=== PATIENT | male | born 1950 | race Caucasian/White ===

== ENCOUNTER 2024-12-20 10:12 | Inpatient (IN) | payer MEDICARE, SELFPAY ==
[2024-12-20] VITALS (7 sets, daily range): BP systolic 112–164; BP diastolic 71–90; PULSE 57–76; RESP 12–18; TEMP 36.2–36.5; O2SAT 96–99; BMI 23.0; BMI 23.2
--- NOTE | ~2024-12-20 | CT_ITS ---
EXAMINATION: CT ABDOMEN PELVIS WITH IV CONTRAST HISTORY: abdominal pain, probable bowel obstruction COMPARISON: Correlation is made with plain films of the abdomen performed earlier in the day. TECHNIQUE: CT scan of the abdomen and pelvis was performed following administration of 85 mL Omnipaque 350 using standard departmental protocol. Coronal and sagittal reformatted images were generated and reviewed. The patient received oral contrast material. This CT exam was performed with one or more of the following dose reduction techniques: automated exposure control, adjustment of the mA and/or kV according to patient size, use of iterative reconstruction technique. DLP: 727 mGy-cm FINDINGS: LOWER CHEST: The visualized lung bases are clear. There is no pleural effusion. CARDIOVASCULATURE: The heart is normal in size. There is no pericardial effusion. LIVER: There is atrophy of the left lobe of the liver. No liver mass is identified. The hepatic and portal veins are patent. GALLBLADDER / BILE DUCTS: The gallbladder is unremarkable. There is no intra or extrahepatic biliary ductal dilatation. SPLEEN: The spleen is normal in size. No focal splenic lesion is identified. PANCREAS: The pancreas is unremarkable in appearance. ADRENAL GLANDS: Within normal limits. KIDNEYS/RETROPERITONEUM: No renal calculi are identified. There is no hydronephrosis. No renal masses are identified. LYMPH NODES: No abdominal or pelvic lymphadenopathy. VASCULATURE: The abdominal aorta demonstrates atherosclerotic calcification, but is normal in caliber. MESENTERY/PERITONEUM: There is a small amount of free fluid in the pelvis. No masses. There is no free intraperitoneal gas. STOMACH: The stomach is unremarkable. SMALL BOWEL: The small bowel is normal in caliber. COLON: There is marked dilatation of the colon with gas and feces (up to 9.9 cm in diameter) to the level of the sigmoid where there is twisting of the mesentery compatible with volvulus. The colon distal to this level is collapsed. There is no pneumatosis. APPENDIX: Normal. URINARY BLADDER/PELVIC ORGANS: The urinary bladder is obscured by streak artifact from bilateral total hip arthroplasties. The prostate is not well visualized. BONES / SOFT TISSUES: There is a rim-enhancing fluid collection lateral and superior to the right hip measuring 5.1 x 6.3 x 4.7 cm which may represent a seroma or abscess. There is mild infiltration of the overlying fat. CT/CT abdomen pelvis w IV con IMPRESSION: 1. Sigmoid volvulus with dilatation of the more proximal colon measuring up to 9.9 cm in diameter. 2. 5.1 x 6.3 x 4.7 cm rim-enhancing fluid collection superior and lateral to the right hip which may represent a seroma or abscess. 3. Findings were discussed with Marj Nails in the emergency room on 12/20/2024 at 3:47 PM. Electronically signed by: Eliseo Jones MD 12/20/2024 03:54 PM EDT
--- NOTE | ~2024-12-20 | XR_ITS ---
EXAMINATION: XR ABDOMEN SUPINE AND ERECT WITH CHEST (ABD ACUTE SERIES) HISTORY: Sigmoid volvulus, s/p decompression 12/20/24 COMPARISON: There are comparison is made with the prior examination dated 12/20/2024. FINDINGS: Supine and decubitus views of the abdomen were obtained. The bowel gas pattern is unremarkable, without evidence of mechanical obstruction. There is no free intraperitoneal gas. The previously seen colonic distention has resolved. There is a moderate amount of stool in the proximal colon. No abnormal calcifications are identified. There are no abnormal soft tissue masses. There is degenerative disc disease of the spine. The patient is status post bilateral total hip arthroplasty. XR/XR acute abdomen series IMPRESSION: Resolution of the previously seen colonic distention. Moderate amount of stool in the proximal colon. Electronically signed by: Eliseo Jones MD 12/21/2024 11:11 AM EDT
--- NOTE | ~2024-12-20 | XR_ITS ---
EXAMINATION: XR ABDOMEN KUB CLINICAL INDICATION: AP COMPARISON: None available. TECHNIQUE: AP view of the abdomen. FINDINGS: There is marked gaseous distention of the entire colon throughout the abdomen. The descending colon appears somewhat a haustral. There is no definite free intraperitoneal air within limitations of supine technique. No definite small bowel dilatation is evident. No rectal dilatation. There is stool seen in the right lower quadrant region. No abnormal soft tissue calcifications besides vascular. Bilateral hip arthroplasties in place without radiographic complication. There is abundant heterotopic bone formation left greater than right. There are no bone lesions evident. Degenerative changes of the spine and SI joints. Limited imaging of the lung bases demonstrates no abnormalities. XR/XR KUB IMPRESSION: 1. Marked gaseous dilatation of the large bowel. Stool seen in the right lower quadrant. Differential includes a large bowel obstruction, ileus, or chronic atonic colonic syndrome such as Ramon syndrome. 2. No indirect evidence of free air although this is a supine radiograph. 3. Bilateral hip replacements with abundant left greater than right heterotopic bone formation. Electronically signed by: Marcelo Dawson MD 12/20/2024 11:36 AM EDT
--- NOTE | 2024-12-20 10:39 | ED_ITS ---
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 Patient states that over the last 10 days he has had increasing difficulty with bowel movements. Patient states that he was having some pass but 3 days ago that has stopped and he is no longer passing gas. Patient states that he is nauseous but has not vomited. Patient denies any dizziness, lightheadedness, vomiting, fever, chills, blurry vision, double vision, loss of vision, chest pain, difficulty breathing, shortness of breath, back pain, night sweats, pain with urination, increased urinary frequency, increased urinary urgency, blood in his urine or stool, syncope or a near syncopal episode, recent trauma or falls, bowel incontinence, bladder incontinence, or any other complaints at this time. Onset (ago): day(s) (10 total, 3 with no bowel movement) Relieving factors: none Exacerbating factors: none Associated symptoms: nausea/vomiting Treatments prior to arrival: none Related Data Home Medications ?Medication ?Instructions ?Recorded ?Confirmed amlodipine 10 mg tablet 10 mg PO DAILY 12/20/24 12/20/24 atorvastatin 40 mg tablet 40 mg PO DAILY 12/20/24 12/20/24 carvedilol 6.25 mg tablet 6.25 mg PO BID 12/20/24 12/20/24 cefadroxil 500 mg capsule 500 mg PO BID 12/20/24 12/20/24 losartan 100 mg tablet 100 mg PO DAILY 12/20/24 12/20/24 methocarbamol 750 mg tablet 750 mg PO Q6-8H PRN muscle spasm 12/20/24 12/20/24 oxycodone 5 mg tablet 5 mg PO Q6-8H PRN severe pain 12/20/24 12/20/24 tramadol 50 mg tablet 50 mg PO Q6-8H PRN severe pain 12/20/24 12/20/24 Allergies Allergy/AdvReac Type Severity Reaction Status Date / Time No Known Allergies Allergy Verified 12/20/24 17:03 Review of Systems 2 Constitutional: Constitutional: Reports no additional constitutional complaints, Denies chills, Denies fever(s) and Denies night sweats Eyes: Eyes: Reports no additional eye complaints, Denies blurry vision, Denies change in vision, Denies diplopia, Denies eye discharge, Denies loss of vision and Denies eye pain ENT: Denies dizziness Cardiovascular: Cardiovascular: Reports no additional cardiovascular complaints, Denies chest pain, Denies lightheadedness, Denies Loss of Consciousness and Denies dyspnea Respiratory: Respiratory: Reports no additional respiratory complaints and Denies dyspnea Gastrointestinal: Gastrointestinal: Reports no additional gastrointestinal complaints, Reports abdominal pain, Denies melena, Denies hematochezia, Reports change in bowel habits, Denies change in stool character, Reports constipation, Reports nausea and Denies vomiting Genitourinary: Genitourinary: Reports no additional male genitourinary complaints, Denies hematuria, Denies oliguria, Denies difficulty urinating, Denies dysuria, Denies urinary frequency, Denies urinary hesitancy, Denies urinary incontinence and Denies urinary urgency Musculoskeletal: Musculoskeletal: Reports no additional musculoskeletal complaints, Denies numbness and Denies tingling Neurologic: Denies dizziness, Denies loss of vision, Denies numbness and Denies tingling Psychiatric: Psychiatric: Reports no additional psychiatric complaints Endocrine: Endocrine: Reports no additional endocrine complaints Hematologic/Lymphatic: Hematologic/Lymphatic: Reports no additional hematologic/lymphatic complaints Allergic/Immunologic: Allergic/Immunologic: Reports no additional allergic/immunologic complaints [facility] Past Medical History Attestation statement: The following information was validated with the patient. (all information validated with the patient's partner) Source: old records reviewed, nursing notes reviewed and other (patient's partner provided additional history and confirmed the history provided by the patient. ) Medical History (Updated 12/20/24 @ 17:17 by TRISTON Darden) Chronic anemia Basal cell carcinoma Squamous cell carcinoma of face CLL (chronic lymphocytic leukemia) HLD (hyperlipidemia) HTN (hypertension) Surgical History (Updated 12/20/24 @ 17:08 by Lizbet Dennis RN) H/O neck surgery H/O heart artery stent History of total right hip replacement History of total left hip replacement History of facial surgery Social History Social History Advance Directives: No Advance Directives Information Provided: Yes Physical Exam ED Vital Signs: Vital Signs - 24 hr 12/20/24 10:40 12/20/24 14:50 Temperature 97.1 F 97.7 F Pulse Rate 76 60 Respiratory Rate 18 12 Blood Pressure 150/82 H 150/80 H Pulse Oximetry 98 97 Oxygen Delivery Method Room Air Room Air BMI result Body Mass Index 23.0 Const General: cooperative, no acute distress, alert and awake Nutritional Appearance: well nourished Orientation/consciousness: patient oriented x3 Limitations: no limitations HENMT Head: Yes normal to inspection and Yes atraumatic Ears: hearing grossly normal bilaterally and external ears normal General nose exam: Normal external nose present, no nasal discharge noted and no epistaxis Face and sinus: No abrasion, No laceration and Yes other (chronic right sided facial droop secondary to squamous cell removal.) Face images: 2 1. large area of grafted skin secondary to squamous cell removal Mouth: Normal oral and palatal mucosa present, no drooling and no muffled voice Eyes General: appearance normal, both eyes and all related structures Periorbital: periorbital findings normal Eyelids: Yes eyelids normal Conjunctivae: conjunctivae normal Pupils: Equal, round and reactive pupils present EOM: EOMs intact bilaterally Neck Neck: Yes normal visual inspection, Yes full ROM and Yes no lymphadenopathy Chest Chest palpation & inspection: normal inspection of the chest Resp Effort & Inspection: normal respiratory effort and able to speak in complete sentences GI Inspection: Yes normal to inspection Palpation (GI): Firmness to palpation present (GI), Tenderness to palpation present (GI) (diffuse) and no guarding Neuro General: patient oriented x3, moves all extremities and CN's II-XI intact bilaterally Cranial nerves: Yes Equal, round and reactive pupils present Cognition (Neuro): normal cognition Extrem General: Yes normal to inspection, Yes full ROM and Yes capillary refill normal Psych Appearance: grossly normal Mental Status: mental status grossly normal Affect: normal affect Attitude: cooperative Thought process: Normal thought process present Thought content: Normal thought content present Insight: Good insight present (Psych) Course Course Course Narrative: This is an RME: Additional HPI, ROS, PE not included below will be deferred to primary provider. RME assessment and note performed by: Prerna Humeml PA-C This is a 1-lahc-pf[age]-male, wtih hx of HTN, HLD, who presents to the ER with complaints of constipation. Reports that he has not had a bowel movement in 10 days. Reporting bloating and no longer passing gas. Reporting some nausea, no vomiting. No fevers. with a hx of hip revision which became infected, then had another hip surgery in September. Had facial cancer in 2022. Plan: Labs, UA, XR KUB 11:55AM - received message from lab, Regarding blood smear on Fransisco Garzon): lymphocytosis with variant lymphs. This could be CLL. If he does not have a known history of CLL, please send a fresh peripheral blood sample for flow cytometry and consider a heme consult. Medications Administered Discontinued Medications Generic Name Dose Route Start Last Admin Trade Name Freq PRN Reason Stop Dose Admin Diatrizoate Meglum/Diatrizoate Sod 30 ml 12/20/24 15:32 12/20/24 15:32 Diatrizoate Meglumine, Sodium 30 Ml Solution PO 12/20/24 15:33 30 ml ONCE ONE Administration Iohexol 100 ml 12/20/24 15:31 12/20/24 15:31 Iohexol 350 Mg/Ml 100 Ml Infus..Btl IV 12/20/24 15:32 85 ml ONCE ONE Administration Ondansetron HCl 4 mg 12/20/24 13:39 12/20/24 15:06 Ondansetron Hcl 4 Mg/2 Ml Vial IVPUSH 12/20/24 13:40 4 mg ONCE ONE Administration Medical Decision Making Medical Decision Making [facility] Narrative: Patient is a 74 year old assigned male at with a history of CLL, 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 Patient's physical exam was as noted in the physical exam portion of this note. Patient's blood work is consistent with an individual who has CLL. Patient's KUB x-ray showed marked gaseous dilatation of the large bowel concerning for large bowel obstruction vs. ileus. I obtained a CT of the abdomen/pelvis that showed evidence of a sigmoid volvulus as well as a fluid collection of the right hip consistent with a seroma. Patient states that he had his last right hip surgery at [facility] in [place] in September of 2024 and has not had any pain / issues there. I spoke with the general surgeon, Dr. Banerjee who recommended GI consult. I spoke with Dr. Tineo who recommended medical admission and stated he would take him to the OR for a stat sigmoid scope. I explained my physical exam findings as well as all test results to the patient. I answered all questions asked by the patient. Patient verbalized agreement and understanding with this treatment plan and admission and procedure. Differential Diagnosis Differential Diagnoses: The differential diagnosis associated with the presentation includes Bowel obstruction Volvulus Seroma Admission/Observation Consideration of admission/observation: Escalation of care including admission/observation considered Patient admitted as noted in the MDM Rationale portion of this note. Consult Healthcare Provider Management of the patient was discussed with: Hospitalist (agreed to admission as noted in the MDM Rationale portion of this note. ) and Mixer Lever Operator (spoke with the general surgery and GI teams as noted in the MDM Rationale portion of this note. ) Lab Data [facility] Lab Attestation statement: I reviewed the patient's lab results. My interpretation of these results are in the MDM Rationale portion of this note. 12/20/24 11:00 12/20/24 11:00 Labs: Lab Results 12/20/24 Range/Units 11:00 WBC 10.9 H (4.8-10.8) X10*3/uL RBC 3.47 L (4.60-5.80) X10*6/uL Hgb 11.6 L (14.0-18.0) g/dl Hct 34.0 L (42.0-52.0) % MCV 98.0 (80.0-98.0) fL MCH 33.4 H (27.0-33.0) pg MCHC 34.1 (31.0-36.0) g/dl RDW 17.4 H (11.0-16.0) % Plt Count 122 L (160-400) X10*3/uL MPV 8.3 L (9.4-12.4) fL Immature Gran % (Auto) Cancelled Neut % (Auto) Cancelled Lymph % (Auto) Cancelled Sherman % (Auto) Cancelled Eos % (Auto) Cancelled Baso % (Auto) Cancelled Lymph # (Auto) Cancelled Sherman # (Auto) Cancelled Eos # (Auto) Cancelled Baso # (Auto) Cancelled Abs Immat Gran (auto) Cancelled Absolute Neuts (auto) Cancelled Absolute Nucleated RBC 0.000 (0.0-0.012) X10*3/uL Nucleated RBC % (auto) 0.0 (0.0-0.2) /100WBC Neutrophils % (Manual) 20 L (45-73) % Band Neutrophils % 2 L (3-5) % Lymphocytes % (Manual) 74 H (20-40) % Atypical Lymphs % (Man) 3 (0-6) % Eosinophils % (Manual) 1 (0-4) % Abs Neuts (Manual) 2.4 (2.0-8.3) X10*3/uL Lymphocytes # (Manual) 8.1 H (1.2-4.9) X10*3/uL Atyp Lymphs # (Manual) 0.3 x10*3/uL Eosinophils # (Manual) 0.1 (0.0-0.4) X10*3/uL Smudge Cells PRESENT Platelet Estimate DECREASED (NORMAL) Plt Morphology Comment NORMAL RBC Morphology NOTED Tear Drop Cells 1+ (0-2) /OIF Smear Path Review SEE NOTE Sodium 132 L (135-145) mmol/L Potassium 3.7 (3.3-5.1) mmol/L Chloride 99 (96-108) mmol/L Carbon Dioxide 27 (22-29) mmol/L Anion Gap 10 L (12-20) BUN 15 (9-16) mg/dL Creatinine 0.75 (0.5-1.4) mg/dL Estim Creat Clear Calc 99.3 Estimated GFR > 60 Random Glucose 108 (60-115) mg/dL Calcium 9.5 (8.4-10.2) mg/dL Magnesium 1.9 (1.6-2.6) mg/dL Total Bilirubin 0.6 (0.0-1.0) mg/dL Direct Bilirubin 0.3 (0.0-0.5) mg/dL AST 49 H (5-37) U/L ALT 30 (0-40) U/L Alkaline Phosphatase 159 H (39-117) U/L Total Protein 7.1 (6.5-8.0) g/dL Albumin 4.2 (3.5-5.0) g/dL Lipase 49 (8-78) U/L Influenza Type A (PCR) NEGATIVE (Negative) Influenza Type B (PCR) NEGATIVE (Negative) RSV RNA Qual (PCR) NEGATIVE (Negative) SARS-CoV-2 RNA (RT-PCR) NEGATIVE (Negative) Independent Interpretation I performed an independent interpretation of an: Plain X-Ray and CT Scan Interpretation: My interpretation is in agreement with the radiologist's impression of these imaging studies. L EXAMINATION: XR ABDOMEN KUB CLINICAL INDICATION: AP COMPARISON: None available. TECHNIQUE: AP view of the abdomen. FINDINGS: There is marked gaseous distention of the entire colon throughout the abdomen. The descending colon appears somewhat a haustral. There is no definite free intraperitoneal air within limitations of supine technique. No definite small bowel dilatation is evident. No rectal dilatation. There is stool seen in the right lower quadrant region. No abnormal soft tissue calcifications besides vascular. Bilateral hip arthroplasties in place without radiographic complication. There is abundant heterotopic bone formation left greater than right. There are no bone lesions evident. Degenerative changes of the spine and SI joints. Limited imaging of the lung bases demonstrates no abnormalities. XR/XR KUB IMPRESSION: 1. Marked gaseous dilatation of the large bowel. Stool seen in the right lower quadrant. Differential includes a large bowel obstruction, ileus, or chronic atonic colonic syndrome such as Ramon syndrome. 2. No indirect evidence of free air although this is a supine radiograph. 3. Bilateral hip replacements with abundant left greater than right heterotopic bone formation. Electronically signed by: Marcelo Dawson MD 12/20/2024 11:36 AM EDT Dictated By: Marcelo Dawson MD Signed By: Electronically signed by Marcelo Dawson MD 12/20/24 1136 Report Number: [id number]: Total DLP = 727.00 mGy-cm EXAMINATION: CT ABDOMEN PELVIS WITH IV CONTRAST HISTORY: abdominal pain, probable bowel obstruction COMPARISON: Correlation is made with plain films of the abdomen performed earlier in the day. TECHNIQUE: CT scan of the abdomen and pelvis was performed following administration of 85 mL Omnipaque 350 using standard departmental protocol. Coronal and sagittal reformatted images were generated and reviewed. The patient received oral contrast material. This CT exam was performed with one or more of the following dose reduction techniques: automated exposure control, adjustment of the mA and/or kV according to patient size, use of iterative reconstruction technique. DLP: 727 mGy-cm FINDINGS: LOWER CHEST: The visualized lung bases are clear. There is no pleural effusion. CARDIOVASCULATURE: The heart is normal in size. There is no pericardial effusion. LIVER: There is atrophy of the left lobe of the liver. No liver mass is identified. The hepatic and portal veins are patent. GALLBLADDER / BILE DUCTS: The gallbladder is unremarkable. There is no intra or extrahepatic biliary ductal dilatation. SPLEEN: The spleen is normal in size. No focal splenic lesion is identified. PANCREAS: The pancreas is unremarkable in appearance. ADRENAL GLANDS: Within normal limits. KIDNEYS/RETROPERITONEUM: No renal calculi are identified. There is no hydronephrosis. No renal masses are identified. LYMPH NODES: No abdominal or pelvic lymphadenopathy. VASCULATURE: The abdominal aorta demonstrates atherosclerotic calcification, but is normal in caliber. MESENTERY/PERITONEUM: There is a small amount of free fluid in the pelvis. No masses. There is no free intraperitoneal gas. STOMACH: The stomach is unremarkable. SMALL BOWEL: The small bowel is normal in caliber. COLON: There is marked dilatation of the colon with gas and feces (up to 9.9 cm in diameter) to the level of the sigmoid where there is twisting of the mesentery compatible with volvulus. The colon distal to this level is collapsed. There is no pneumatosis. APPENDIX: Normal. URINARY BLADDER/PELVIC ORGANS: The urinary bladder is obscured by streak artifact from bilateral total hip arthroplasties. The prostate is not well visualized. BONES / SOFT TISSUES: There is a rim-enhancing fluid collection lateral and superior to the right hip measuring 5.1 x 6.3 x 4.7 cm which may represent a seroma or abscess. There is mild infiltration of the overlying fat. CT/CT abdomen pelvis w IV con IMPRESSION: 1. Sigmoid volvulus with dilatation of the more proximal colon measuring up to 9.9 cm in diameter. 2. 5.1 x 6.3 x 4.7 cm rim-enhancing fluid collection superior and lateral to the right hip which may represent a seroma or abscess. 3. Findings were discussed with Marj Nails in the emergency room on 12/20/2024 at 3:47 PM. Electronically signed by: Eliseo Jones MD 12/20/2024 03:54 PM EDT RP Dictated By: Eliseo Jones MD Signed By: Electronically signed by Eliseo Jones MD 12/20/24 1554 Radiology Impression Discussion of test interpretation with radiology: I have reviewed the radiologist's reading. Independent Historian Clinical information obtained from an independent historian. History obtained from or confirmed by: Other (patient's partner provided additional history and confirmed the history provided by the patient. ) Critical Care Time Critical Care Time Critical Care Time: Yes Total Critical Care Time: 51 Attestation: I spent 51 minutes of Critical Care Time with this patient. This does not include time spent on separately reported billable procedures. Discharge Plan Discharge Clinical Impression: Sigmoid volvulus Patient Disposition: Admitted As Inpatient Prescriptions: No Action atorvastatin 40 mg tablet 40 mg PO DAILY carvedilol 6.25 mg tablet 6.25 mg PO BID tramadol 50 mg tablet 50 mg PO Q6-8H PRN (Reason: severe pain) cefadroxil 500 mg capsule 500 mg PO BID methocarbamol 750 mg tablet 750 mg PO Q6-8H PRN (Reason: muscle spasm) amlodipine 10 mg tablet 10 mg PO DAILY losartan 100 mg tablet 100 mg PO DAILY oxycodone 5 mg tablet 5 mg PO Q6-8H PRN (Reason: severe pain) Print Language: Citizen [place]
[2024-12-20 11:08] LABS: Hemoglobin 11.6 g/dl (14.0-18.0); Mean Corpuscular HGB Conc 34.1 g/dl (31.0-36.0); Mean Corpuscular Hemoglobin 33.4 pg (27.0-33.0); Mean Platelet Volume 8.3 fL (9.4-12.4); Platelet Count 122 X10*3/uL (160-400); Red Blood Count 3.47 X10*6/uL (4.60-5.80); Red Cell Distribution Width 17.4 % (11.0-16.0)
[2024-12-20 11:11] LABS: White Blood Count 10.9 X10*3/uL (4.8-10.8)
[2024-12-20 11:26] LABS: Alanine Aminotransferase 30 U/L (0-40); Albumin Level 4.2 g/dL (3.5-5.0); Alkaline Phosphatase 159 U/L (39-117); Anion Gap 10 (12-20); Aspartate Amino Transferase 49 U/L (5-37); Bilirubin Direct 0.3 mg/dL (0.0-0.5); Bilirubin Total 0.6 mg/dL (0.0-1.0); Blood Urea Nitrogen 15 mg/dL (9-16); Calcium 9.5 mg/dL (8.4-10.2); Carbon Dioxide 27 mmol/L (22-29); Chloride 99 mmol/L (96-108); Creatinine Clr Calc Pharmacy 99.3; Estimated Glomerular Filt Rate > 60; Glucose Random 108 mg/dL (60-115); Lipase 49 U/L (8-78); Magnesium 1.9 mg/dL (1.6-2.6); Potassium 3.7 mmol/L (3.3-5.1); Sodium 132 mmol/L (135-145); Total Protein 7.1 g/dL (6.5-8.0)
[2024-12-20 11:38] LABS: Atypical Lymph Absolute Manual 0.3 x10*3/uL; Atypical Lymphs Percent Manual 3 % (0-6); Band Neutrophils Percent 2 % (3-5); Eosinophils Absolute Manual 0.1 X10*3/uL (0.0-0.4); Eosinophils Percent Manual 1 % (0-4); Lymphocytes Absolute Manual 8.1 X10*3/uL (1.2-4.9); Lymphocytes Percent Manual 74 % (20-40); Neutrophils Absolute Manual 2.4 X10*3/uL (2.0-8.3); Neutrophils Percent Manual 20 % (45-73)
[2024-12-20 11:40] LABS: Platelet Estimate DECREASED (NORMAL); Platelet Morphology Comment NORMAL; RBC Morphology NOTED; Smudge Cells PRESENT; Tear Drop Cells 1+ (0-2) /OIF
[2024-12-20 11:49] LABS: Influenza A PCR NEGATIVE (Negative); Influenza B PCR NEGATIVE (Negative); Resp Syncy Virus RNA Qual PCR NEGATIVE (Negative); SARS COV2 PCR INHOUSE NEGATIVE (Negative)
[2024-12-20] MEDS: ondansetron HCL 4 MG/2 ML VIAL IVPUSH (15:06)
[2024-12-20] MEDS: iohexoL 350 MG/ML 100 ML INFUS..BTL IV (15:31)
[2024-12-20] MEDS: Diatrizoate Meglumine, Sodium 30 ML SOLUTION PO (15:32)
--- OUTSIDE RECORDS SUMMARY | 2024-12-20 16:07 | XMS_ITS | Encounter Summary ---
Author Organization [facility] Address [address] [place] [phone] Care Team Providers Care Financial Accountant Name Role Phone Indu Acosta MD Primary Care Provider Giovanna Thapa MD Unavailable Suzanna Mcgill DO Primary Care Provider [phone] Reason for Visit * Reason Comments Medication Refill Encounter Details Date Type Department Care Team (Late st Contact Info) Description 03/01/[address] [facility] Cardiac Laboratory [address] [phone] Olivia Zavaleta PA [address] [place] [phone] Medication Refill Social History Tobacco Use Types Packs/Day Years Used Date Smoking Tobacco: Never Smokeless Tobacco: Never Alcohol Use Standard Drinks/Week Comments Yes 0 (1 standard drink = 0.6 oz pur e alcohol) Occasional Sex and Gender Information Value Date Recorded Sex Assigned at Male 09/27/2022 7:35 AM EST Gender Identity Male 09/27/2022 7:35 AM EST Sexual Orientation Heterosexual (straight) 09/27 7:35 AM EST documented as of this encounter Plan of Treatment Upcoming Encounters Date Type Department Care Team (Late st Contact Info) Description 02/24/2025 10:00 AM EDT Office Visit [facility] [place] [address] [place] [phone] Giovanna Thapa MD [address] [place] [phone] documented as of this encounter Visit Diagnoses Diagnosis Hypertension, unspecified type documented in this encounter Care Teams Financial Accountant Relationship Specialty Start Date End Date Indu Acosta MD [address] [place] [address] PCP - General 08/29/21 03/26/23 Suzanna Mcgill DO [address] [place] [address] PCP - General Family Medicine 03/27/23 Giovanna Thapa MD [address] [place] [phone] Primary Meeting Planner Cardiovascular Disease 08/29/21 documented as of this encounter
--- OUTSIDE RECORDS SUMMARY | 2024-12-20 16:07 | XMS_ITS | Encounter Summary ---
Author Organization [facility] Address [address] [place] [address] Care Team Providers Care Gear Lapping Machine Operator Name Role Phone Aminata Moreno MD Primary Care Provider Encounter Details Date Type Department Care Team (Late st Contact Info) Description 07/10/2024 Lab Requisition [facility] - Main Lab [address] [place] [address] Ally Ortega MD [address] [place] [phone] Streptococcal infection, unspecified site Social History Tobacco Use Types Packs/Day Years Used Date Smoking Tobacco: Never Smokeless Tobacco: Never Alcohol Use Standard Drinks/Week Comments Not Currently 0 (1 standard drink = 0.6 oz pur e alcohol) Sex and Gender Information Value Date Recorded Sex Assigned at Male 08/27/2024 9:31 AM EST Legal Sex Male 12:32 PM EST Gender Identity Male 09/14/2024 5:10 AM EST Sexual Orientation Straight 10/20/2024 9: 19 AM EST documented as of this encounter Plan of Treatment Upcoming Encounters Date Type Department Care Team (Late st Contact Info) Description 01/10/2025 9:00 AM EDT Office Visit [facility] Hematology Oncology [address] [place] [address] Lamar Cotton MD [address] [place] [address] 03/16/2025 11:00 AM EDT Telemedicine Infectious Disease - [facility] [address] [place] [address] Neelima Peoples MD [address] [place] [address] documented as of this encounter Visit Diagnoses Diagnosis Streptococcal infection, unspecified site documented in this encounter Additional Health Concerns Infection Onset Date Last Indicated Resolved Time Tuberculosis Rule-Out 09/06/2024 09/06/20242024 8:27 AM EST documented as of this encounter Care Teams Gear Lapping Machine Operator Relationship Specialty Start Date End Date Aminata Moreno MD [address] [place] [id number] PCP - General Internal Medicine 10/21/24 documented as of this encounter
--- OUTSIDE RECORDS SUMMARY | 2024-12-20 16:07 | XMS_ITS ---
Author Organization [facility] Address [address] [place] [address] Care Team Providers Care Director Of User Experience Name Role Phone Nano Harpreetvidhi Primary Care Provider [phone] Active Problems Problem Noted Date Diagnosed Date Head and neck cancer 09/03/2022 Infrarenal abdominal aortic aneurysm (AAA) witho ut rupture 08/27/2022 Overview (08/27/2022): PET/CT TUMOR IMAGING SKULL BASE TO MID-THIGH ? ? 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 Thapa in [place], [place] Stenting x 2 in [address] Thapa in [place] Hyperlipidemia 09/13/2015 Primary hypertension 09/13/2015 Current Treatment and Therapy Plans No current plan information found. Past Treatment and Therapy Plans No past plan information found. Lifetime Dose Tracking * Chemical Lifetime Dose Automatic Entry Manual Entr y TotalDLP 859 mGy 859 mGy 0 mGy [id number] 7.5 mSv 7.5 mSv 0 mSv CTDIvol Max 32.2 mGy 32.2 mGy 0 mGy CTDIvol Min 32.2 mGy 32.2 mGy 0 mGy
--- OUTSIDE RECORDS SUMMARY | 2024-12-20 16:07 | XMS_ITS ---
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 Anemia persists but is stable. Recurrent squamous cell carcinoma of skin 2022 Assessment & Plan (12/13/2024 3:38 PM EDT): Fby derm, rad Onc and Hem/onc. Head and neck cancer ([facility] V24, [facility] V28) 09/03/2022 Assessment & Plan (08/25/2024 12:48 PM EST): CT head and neck performed 08/18/2024: All negative for mass, metastatic disease, lymphadenopathy. Followed closely by radiation oncology. See note below. Infrarenal abdominal aortic aneurysm (AAA) without rupture ([facility] V24) 08/27/2022 Overview (08/17/2024): PET/CT TUMOR IMAGING SKULL BASE TO MID-THIGH ? 08/26/2022 Moderate calcified and sclerosis of the aortoiliac tree with fusiform infrarenal aneurysm measuring 3.1 cm Hyponatremia 11/12/2021 CLL (chronic lymphocytic gricel kemia) ([facility] V24, [facility] V28) 01/13/2019 Overview (05/21/2024): Dr Cotton Assessment & Plan (12/13/2024 3:38 PM EDT): Fby Assessment & Plan (08/25/2024 12:48 PM EST): Patient has stage 0 CLL. Last seen by hematology oncology on 08/12/2024 (see note below). H&H platelets stable. Squamous cell carcinoma in situ 05/13/2018 Pure hypercholesterolemia 12/05/2017 Essential hypertension 12/05/2017 Assessment & Plan (08/25/2024 12:48 PM EST): BP in office 127/73, currently managed with losartan, amlodipine, and carvedilol, and clinically appears stable. Continue current treatment and outpatient management. Coronary artery disease invo [place] coronary artery of [place] heart without angina pectoris 12/05/2017 Assessment & Plan (08/29/2024 7:38 PM EST): No cardiovascular symptoms reported. Patient compliant with statin and beta- mag. Followed by cardiology; Stable-no further workup required. Varicose veins of ankle 11/16/2015 Delayed ejaculation 11/16/2015 Overview (05/21/2024): Saw urology Enlarged testicle 11/16/2015 Overview (05/21/2024): Neg work up Right shoulder pain 11/16/2015 S/P bilateral hip replacements 11/16/2015 Hyperlipidemia 09/13/2015 Anemia Overview (08/24/2024): DX:Anemia;COMMENT:HX Assessment & Plan (12/13/2024 3:38 PM EDT): Getting weekly labs, most recent Hb at 10.3 Assessment & Plan (08/30/2024 7:59 AM EST): Patient had a GI bleed back in 2022 due to hemorrhoid: Required transfusion. Does have chronic constipation and continues with some troubles with hemorrhoid but no vijay blood loss. Anemia persists but is stable. Type and screen ordered for morning of surgery. Last type and screen showed negative for antibodies and patient has not had a transfusion since last surgery. Type + screen AM of surgery ordered. Current Oncology Plans OUTPATIENT TRANSFUSION (PRN)* Plan Start Date:10/20/2024 Plan Provider:Lamar Cotton MD Linked Problems CLL (chronic lymphocytic gricel kemia) ([facility] V24, [facility] V28) Treatment Medications No medications scheduled. Past Plans No past plan information found. Radiation Treatments * No radiation treatments are documented for this patient in [facility]. Treatments may have been administered in another system. Lifetime Dose Tracking * Chemical Lifetime Dose Automatic Entry Manual Entr y Fluoro Time 0.16 minutes 0.16 minutes 0 minutes Air Kerma 15.42 mGy 15.42 mGy 0 mGy
--- OUTSIDE RECORDS SUMMARY | 2024-12-20 16:07 | XMS_ITS | Encounter Summary ---
Author Organization [facility] Address [address] [place] [address] Care Team Providers Care Breaker Oiler Name Role Phone Suzanna Mcgill Primary Care Provider [phone] Encounter Details Date Type Department Care Team (Late st Contact Info) Description 09/25/2023 [employer] Alarishart Message [facility] [address] [place] [id number] Mychart, Generic Provider [address] [place], [place] [id number] [employer] referral Social History Tobacco Use Types Packs/Day Years Used Date Smoking Tobacco: Never Smokeless Tobacco: Never Alcohol Use Standard Drinks/Week Comments Not Currently 0 (1 standard drink = 0.6 oz pur e alcohol) Sex and Gender Information Value Date Recorded Sex Assigned at Male 08/19/2022 3:44 PM EST Legal Sex Male 9:59 AM EST Gender Identity Male 08/19/2022 3:44 PM EST Sexual Orientation Straight 08/19/2022 3: 44 PM EST documented as of this encounter Plan of Treatment Not on file documented as of this encounter Visit Diagnoses Not on filedocumented in this encounter Care Teams Breaker Oiler Relationship Specialty Start Date End Date Suzanna Mcgill [address] [place] [address] PCP - General 08/14/22 documented as of this encounter
--- OUTSIDE RECORDS SUMMARY | 2024-12-20 16:07 | XMS_ITS | Encounter Summary ---
Author Organization [facility] Address [address] [place] [address] Care Team Providers Care Laminating Machine Feeder Name Role Phone Suzanna Mcgill Primary Care Provider [phone] Encounter Details Date Type Department Care Team (Late st Contact Info) Description 08/26/2022 Lab Requisition [facility] [address] [place] [address] Ashu Mason MD [address] [place] [address] [phone] Social History Tobacco Use Types Packs/Day Years [...] on file documented as of this encounter Procedures * Due to [place] Hippflow law, this organization might not be sharing negative HIV tests. Procedure Name Priority Date/Time Associated Diagnosis Comments NON-GYNECOLOGIC CYTOLOGY 08/26/2022 8:00 AM EST documented in this encounter Results * Due to [place] Hippflow law, this organization might not be sharing negative HIV tests. * (ABNORMAL) Non-Gynecologic Cytology (08/26/2022 8:00 AM EST) Final Diagnosis Specimen 1: Cheek, Right; Incoming consult, FNA Positive for malignant cells. Squamous cell carcinoma, keratinizing. See note. Note: The case was labelled as Right cheek, FNA, NOS , part 1 and part 2. Both part 1 and part 2 show squamous cell carcinoma. [facility] MANUAL 08/27/2022 10:43 AM EST [employer] [email or web address] at 1043 EST Clinical History SCC Cheek [facility]UAL 08/27/2022 10:43 AM EST [facility] Gross Description Specimen 1: Received from [facility] are 6 glass slides labeled [id number] corresponding to a right cheek FNA obtained on 08/12/2022, according to the accompanying cytology report bearing the patient's name and date of . [facility] MANUAL 08/27/2022 10:43 AM EST [employer] [email or web address] Embedded Images [facility] MANUAL 08/27/2022 10:43 AM EST [employer] Resulting Agency Case was signed out at [facility], Department of Pathology, [facility] [id number] [facility] MANUAL 08/27/2022 10:43 AM EST [employer] [facility] [email or web address] Abnormal Yes(A) (none) [facility] MANUAL 08/27/2022 10:43 AM EST [employer] [facility] [email or web address] Report Header Non-Gynecologic Cytology Report ? Case: [id number] ? Authorizing Provider: ??Ashu Mason MD ? Collected: ? 08/26/2022 0800 ? Ordering Location: ? [facility] ? Received: ?08/26/2022 1546 ? [facility] ? Pathologist: ? Rigoberto Brito MD ? Specimen: ?Cheek, Right, Incoming consult, FNA ? 08/27/2022 10:43 AM EST [facility] [employer] [facility] Structure of right cheek / Unknown 08/26/2022 8:00 AM EST 08/26/2022 3:46 PM EST us Ashu Mason MD LAB PATHOLOGY/CYTOLOGY ORDER FACUNDO Final Result Performing Organization Address City/State/[facility] Co de Phone Number [facility] [address] [place] [address], documented in this encounter Visit Diagnoses Not on filedocumented in this encounter Care Teams Laminating Machine Feeder Relationship Specialty Start Date End Date Suzanna Mcgill [address] [place] [address] PCP - General 08/14/22 documented as of this encounter
--- OUTSIDE RECORDS SUMMARY | 2024-12-20 16:07 | XMS_ITS | Clinical Summary ---
Author Organization [facility] Address [address] [place] [address] Phone Care Team Providers Care Insurance Premium Auditor Name Role Phone Aminata Moreno MD Primary Care Provider Allergies Active Allergy Reactions Criticality Noted Date Comments Pollen Extracts Stuffy Nose Low 05/21/2019 Medications fexofenadine HCl (LILIANA ALLERGY ORAL) 1 (one) time each day. Active multivit-min/iro n/folic acid/K (ADULTS MULTIVITAMIN ORAL) 1 (one) time each day. Active acetaminophen (TYLENOL) 500 mg tablet Take 2 tablets (1,000 mg total) by mouth every 6 hours as needed. Active amLODIPine (NORVASC) 10 mg tablet Take 1 tablet (10 mg total) by mouth 1 (one) time each day in the evening. 4 Active atorvastatin (LIPITOR) 40 mg tablet Take 1 tablet (40 mg total) by mouth 1 (one) time each day. 0 Active carvediloL (COREG) 6.25 mg tablet Take 1 tablet (6.25 mg total) by mouth 2 (two) times a day with meals. 3 Active cyanocobalamin (VITAMIN B-12) 100 mcg tablet 1 (one) time each day. Active losartan (COZAAR) 100 mg tablet Take 1 tablet (100 mg total) by mouth 1 (one) time each day. 1 Active melatonin 1 mg tablet,chewable at bedtime. Ac tive bisacodyL (DULCOLAX) 5 mg EC tablet Take 1 tablet (5 mg total) by mouth 1 (one) time each day in the evening. Active docusate sodium (COLACE) 100 mg capsule Take 1 capsule (100 mg total) by mouth 1 (one) time each day in the evening. Active methocarbamoL (ROBAXIN) 750 mg tablet Take 1 tablet (750 mg total) by mouth every 6 (six) hours if needed for muscle spasms. 60 each 09/26/2024 11:45 AM EST 5 Active oxyCODONE (ROXICODONE) 5 mg immediate release tablet Take 1 tablet (5 mg total) by mouth every 4 (four) hours if needed (pain). Max Daily Amount: 30 mg 42 tablet 09/26/2024 11:45 AM EST 5 Active senna-docusate (PERICOLACE) 8.6-50 mg per tablet Take 1 tablet by mouth 2 (two) times a day. 14 each 09/26/2024 11:45 AM EST 5 Active cefadroxil 500 mg capsule Take 1 capsule (500 mg total) by mouth 2 (two) times a day with meals. 60 capsule 11 5 Active cefadroxil 500 mg capsule Take 1 capsule (500 mg total) by mouth 2 (two) times a day with meals. 60 capsule 11 5 12/02/19 25 Discontinue d(Reorder) predniSONE (DELTASONE) 10 mg tablet Take 6 tablets (60 mg total) by mouth 1 (one) time each day for 7 days, THEN 5 tablets (50 mg total) 1 (one) time each day for 7 days, THEN 4 tablets (40 mg total) 1 (one) time each day for 7 days, THEN 3 tablets (30 mg total) 1 (one) time each day for 7 days, THEN 2 tablets (20 mg total) 1 (one) time each day for 7 days, THEN 1 tablet (10 mg total) 1 (one) time each day for 7 days. 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 Head and neck cancer ([facility] V24, [facility] V28) 09/03/2022 Assessment & Plan (08/25/2024 12:48 PM EST): CT head and neck performed 08/18/2024: All negative for mass, metastatic disease, lymphadenopathy. Followed closely by radiation oncology. See note below. Infrarenal abdominal aortic aneurysm (AAA) without rupture ([facility] V24) 08/27/2022 Overview (08/17/2024): PET/CT TUMOR IMAGING SKULL BASE TO MID-THIGH ? 08/26/2022 Moderate calcified and sclerosis of the aortoiliac tree with fusiform infrarenal aneurysm measuring 3.1 cm Hyponatremia 11/12/2021 CLL (chronic lymphocytic gricel kemia) ([facility] V24, [facility] V28) 01/13/2019 Overview (05/21/2024): Dr Cotton Assessment [...] outpatient management. Coronary artery disease invo lving pokagon coronary artery of pokagon heart without angina pectoris 12/05/2017 Assessment & [...] Type + screen AM of surgery ordered. Encounters Date Type Department Care Team Description 12/20/2024 Nurse Triage Adult Medicine [address] [phone] Aminata Moreno MD Constipation 12/13/2024 3:00 PM EDT Office Visit Adult [address] [phone] Aminata Moreno MD Medicare annual wellness visit, subsequent (Primary Dx); History of revision of total replacement of right hip joint; CLL (chronic lymphocytic leukemia) ([facility] V24, [facility] V28); Other iron deficiency anemia; Recurrent squamous cell carcinoma of skin 12/10/2024 2:00 PM EDT Office Visit Adult [address] [phone] Laura Rodriguez PA Bilateral impacted cerumen (Primary Dx) 12/07/2024 10:23 AM EDT - 12/07/2024 11:59 PM EDT Hospital Encounter [facility] Radiation Oncology [address] [place] [phone] Mimi Dawson NP Recurrent squamous cell carcinoma of skin (Primary Dx) Discharge Disposition: Home or Self Care 12/07/2024 Telephone Adult [address] [phone] Aminata Moreno MD Cerumen Impaction 12/02/2024 8:03 AM EDT - 12/02/2024 11:59 PM EDT Hospital Encounter [facility] Infusion Center [address] [place] [phone] Lamar Cotton MD CLL (chronic lymphocytic leukemia) ([facility] V24, [facility] V28) (Primary Dx) Discharge Disposition: Home or Self Care 12/01/2024 9:30 AM EDT Telemedicine Infectious Disease - [address] [place] [phone] Neelima Peoples MD Prosthetic joint infection, subsequent encounter (Primary Dx) 11/30/2024 Telephone [facility] Hematology Oncology [address] [place] [phone] Lamar Cotton MD 11/18/2024 Telephone [facility] Radiation Oncology [address] [place] [phone] Jenniffer Salazar MA 11/17/2024 9:58 AM EDT - 11/17/2024 11:59 PM EDT Hospital Encounter [facility] CT Scan [address] [place] [phone] Recurrent squamous cell carcinoma of skin Discharge Disposition: Home or Self Care 11/17/2024 9:57 AM EDT - 11/17/2024 11:59 PM EDT Hospital Encounter [facility] CT Scan [address] [place] [phone] Recurrent squamous cell carcinoma of skin Discharge Disposition: Home or Self Care 11/10/2024 11:45 AM EST Office Visit [facility] Hematology Oncology [address] [place] [phone] Lamar Cotton MD CLL (chronic lymphocytic leukemia) ([facility] V24, [facility] V28) (Primary Dx); S/P bilateral hip replacements; Anemia, unspecified type 11/03/2024 9:49 AM EST - 11/03/2024 11:59 PM EST Hospital Encounter [facility] Infusion Center [address] [place] [phone] Lamar Cotton MD CLL (chronic lymphocytic leukemia) ([facility] V24, [facility] V28) (Primary Dx) Discharge Disposition: Home or Self Care 10/28/2024 Telephone Infectious Disease - [place] [address] [place] [phone] Mackenzie Holloway MA 10/27/2024 11:45 AM EST Office Visit [facility] Hematology Oncology [address] [place] [phone] Lamar Cotton MD Other non-autoimmune hemolytic anemias ([facility] V24, [facility] V28) (Primary Dx); CLL (chronic lymphocytic leukemia) ([facility] V24, [facility] V28) 10/27/2024 9:48 AM EST - 10/27/2024 11:59 PM EST Hospital Encounter [facility] Infusion Center [address] [place] [phone] Lamar Cotton MD CLL (chronic lymphocytic leukemia) ([facility] V24, [facility] V28) (Primary Dx) Discharge Disposition: Home or Self Care 10/20/2024 10:15 AM EST Office Visit [facility] Hematology Oncology [address] [place] [phone] Lamar Cotton MD Anemia, unspecified type (Primary Dx); CLL (chronic lymphocytic leukemia) ([facility] V24, [facility] V28) 10/20/2024 9:21 AM EST - 10/20/2024 11:59 PM EST Hospital Encounter [address] [phone] Lamar Cotton MD Iron deficiency anemia due to chronic blood loss (Primary Dx); CLL (chronic lymphocytic leukemia) ([facility] V24, [facility] V28); Recurrent squamous cell carcinoma of skin Discharge Disposition: Home or Self Care 10/20/2024 Telephone [facility] Hematology Oncology [address] [place] [phone] Lamar Cotton MD 10/19/2024 10:00 AM EST Telemedicine Infectious Disease - [address] [place] [phone] Neelima Peoples MD Prosthetic joint infection, subsequent encounter (Primary Dx) 10/19/2024 Telephone [facility] Hematology Oncology [address] [place] [phone] Lamar Cotton MD 10/19/2024 Telephone [facility] Infusion Center [address] [place] [phone] Lamar Cotton MD 09/14/2024 5:12 AM EST - 09/26/2024 11:45 AM EST [facility] [address] [place] [phone] Babak Carrasquillo MD Ishtiaq, MD Luis Carlos 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 with presence of antibiotic-impregnat ed cement spacer (Primary Dx); Acute blood loss anemia Discharge Disposition: Home or Self Care from Last 3 Months Immunizations Name Administration Dates Next Due COVID-19 (Pfizer/Comirnaty) 12yo and older 08/06/2023 Hepatitis A-Hepatitis B Adul t (Twinrix) 18yo and older 03/15/2014,01/14/2014,12/08/2013,10/09 Influenza Quadravalent, 0.5m l (Fluad) 65yo and older 08/06/2023,07/11/2021,05/24/2020 Influenza Quadravalent, 0.5m l (Fluzone High-dose) 65yo and older 06/27/2022 Influenza trivalent, 0.5mL ( Fluad) 65yo and older 05/21/2018 Influenza trivalent, 0.5mL ( Fluzone High-dose) 65yo and older 08/06/2023,06/26/2021,06/02/2019,05/22,06/21/2016 Influenza trivalent, 0.5mL, preservative free (Fluarix; FluLaval; Fluzone) ages 6mo and older (Afluria) 3 years and older 07/01/2024 Influenza trivalent, with pr eservative (Fluzone; Afluria) 6mo and older 06/09/2014,06/15/2013,07/01/2011 Pfizer SARS-CoV-2 COVID-19, mRNA, LNP-S, preservative free 08/06/2023 Pneumococcal conjugate 13 va lent (Prevnar 13, PCV13) 2mo and older 11/16/2015 Pneumococcal polysaccharide 23 valent (Pneumovax 23) 2yo and older 07/06/2019,04/02/2011 RSV, bivalent, protein subun it RSVpreF, 0.5mL, Preservative Free (Arexvy) 60yo and older 09/10/2023 Td Tetanus diptheria (Tdvax) 7yo and older 07/06/2019,01/04/1999 Tdap Tetanus diptheria acell ular pertussis (Boostrix; Adacel) 7yo and older 11/28/2008 Zoster Live 12/16/2014 Surgical History Surgery Date Site/Laterality Comments OTHER SURGICAL HISTORY Bilateral PROCEDURE: [place] ARTHRP ACETBLR/PROX FEM PROSTC AGRFT/ALGRFT; COMMENT: bilateral CORONARY STENT PLACEMENT 2004 PROCEDURE: STENT, CORONARY, ELIZABET COLONOSCOPY 2008 [facility] PROCEDURE: HISTORICAL COLONOSCOPY; COMMENT: Incomplete OTHER SURGICAL HISTORY 03/06/2017 PROCEDURE: COLON CA SCRN NOT HI RSK IND; COMMENT: hemorrhoids; completed to hepatic flexure; repeat in 10 yrs. OTHER SURGICAL HISTORY 03/18/2017 PROCEDURE: RADIOLOGIC EXAM COLON SINGLE CONTRAST STUDY; COMMENT: diverticulosis, but study limited because of redundnat colon, and limited filling of ascending colon OTHER SURGICAL HISTORY 09/03/2022 Right PROCEDURE: HISTORY OTHER; COMMENT: [facility]- removal of growth - SCC on Rt cheek TOTAL HIP ARTHROPLASTY 2011 Right PROCEDURE:TOTAL HIP ARTHROPLASTY TOTAL HIP ARTHROPLASTY 2006 Left PROCEDURE:TOTAL HIP ARTHROPLASTY CARDIAC CATHETERIZATION 2008 PROCEDURE:CARDIAC CATHETERIZATION;COMMENT :STENT X2 TUMOR REMOVAL 2021 PROCEDURE:TUMOR REMOVAL;COMMENT:FACE- SCC X2 OTHER SURGICAL HISTORY PROCEDURE:MOHS SURGERY;COMMENT:SEVERAL SCC EYELID REPAIR W/ SKIN GRAFT Right PROCEDURE:EYELID REPAIR W/ SKIN GRAFT CATARACT EXTRACTION W/ INTRAOCULAR LENS IMPLANT Bilateral PROCEDURE:CATARACT EXTRACTION W/ INTRAOCULAR LENS IMPLANT COSMETIC SURGERY 09/2022 PROCEDURE:COSMETIC SURGERY TONSILLECTOMY 1973 PROCEDURE:TONSILLECTOMY HIP PROSTHESIS REMOVAL 06/08/2024 Right PROCEDURE:HIP PROSTHESIS REMOVAL;COMMENT:Procedu re: REMOVE TOTAL HIP PROSTHESIS; Surgeon: Babak Carrasquillo MD; Location: [facility] Service: Orthopedics; Laterality: Right; Medical History Medical History Date Comments Coronary artery disease 09/13/2015 DX:Coron carlos manuel artery disease; COMMENT: Stenting x [address] in [address] Vázquez HTN (hypertension) 09/13/2015 DX:HTN (hyper tension) Hyperlipidemia 09/13/2015 DX:Hyperlipidemi a S/P bilateral hip replacements 11/16/2015 D X:S/P bilateral hip replacements Right shoulder pain 11/16/2015 DX:Right ti ulder pain Enlarged testicle 11/16/2015 DX:Enlarged te sticle Delayed ejaculation 11/16/2015 DX:Delayed e jaculation Varicose veins 11/16/2015 DX:Varicose vein s Actinic keratosis, hx of DX:Acti barry keratosis, hx of CLL (chronic lymphocytic gricel kemia) ([facility] V24, [facility] V28) 08/12/2024 IMPROVING Coronary artery disease invo lving pokagon coronary artery of pokagon heart without angina pectoris 12/05/2017 DX:Coronary artery disea se involving pokagon coronary artery of pokagon heart without angina pectoris Essential hypertension 12/05/2017 DX:Essent ial hypertension Pure hypercholesterolemia 12/05/2017 DX:Pur e hypercholesterolemia Osteoarthritis DX:Osteoarthriti s Chronic constipation DX:Chronic constipation GI (gastrointestinal bleed) D/T HEMORROIDS REQUIRED TRANSFUSION 07/2023 Hemorrhoid DX:Hemorrhoid Anemia DX:Anemia;COMMEN T:HX History of transfusion COMMENT:D /T HEMORROIDS 07/2023 Cancer ([facility] V24, [facility] V28) DX:Cancer (HCC);COMMENT:CLL- NO TX Skin cancer 2022 SCC FACE AND NEC K- GIOVANI, CHEMO, RAD [place] Melanoma ([facility] V24, [facility] V28) 05/2022 DX:Melanoma (HCC) Family History Medical History Relation Name Comments Emphysema Father 63 Other: copd Father 63 Lung disease Mother 79 Other cancer Sister uterine Relation Name Status Comments Father 63 Mother 79 Sister Alive Social History Tobacco Use Types Packs/Day Years Used Date Smoking Tobacco: Never Smokeless Tobacco: Never Alcohol Use Standard Drinks/Week Comments Not Currently 0 (1 standard drink = 0.6 oz pur e alcohol) Interpersonal Safety Answer Date Record ed Physical Abuse 09/14/2024 Verbal Abuse 09/14/2024 Sex and Gender Information Value Date Recorded Sex Assigned at Male 08/27/2024 9:31 AM EST Legal Sex Male 12:32 PM EST Gender Identity Male 09/14/2024 5:10 AM EST Sexual Orientation Straight 10/20/2024 9: 19 AM EST Obstetrics History Last Filed Vital Signs Vital Sign Reading Time Taken Comments Blood Pressure 100/60 12/13/2024 2:59 PM EDT Pulse 63 12/13/2024 2:59 PM EDT Temperature 36.3 ??C (97.3 ??F) 12/13/2024 2:59 PM ED T Respiratory Rate 17 12/13/2024 2:59 PM EDT Oxygen Saturation 100% 12/07/2024 10:29 AM EDT Inhaled Oxygen Concentration - - Weight 82.6 kg (182 lb 3.2 oz) 12/13/2024 2:59 P M EDT Height 184.3 cm (6' 0.56 ) 12/13/2024 2:59 PM ED T Body Mass Index 24.33 12/13/2024 2:59 PM EDT Plan of Treatment Upcoming Encounters Date Type Department Care Team (Late st Contact Info) Description 01/10/2025 9:00 AM EDT Office Visit [facility] Hematology Oncology [address] [place] [phone] Lamar Cotton MD [address] [place] [address] 03/16/2025 11:00 AM EDT Telemedicine Infectious Disease - [place] [address] [place] [phone] Neelima Peoples MD [address] [place], [place] [phone] Health Maintenance Due Date Last Done Comments Zoster Vaccines (1 of 2) 02/10/2015 12/16/2014 Social Influencers of Health Screening 08/15/2022 COVID-19 Vaccine ( season) 2024 08/06/2023, 08/06/2023, 06/27/2022, Additional history exists Depression Screening 12/13/2025 12/13/2024 Falls Risk Assessment 12/13/2025 12/13/2024, 025 Medicare Annual Wellness Visit 12/13/2025 12/13/2024 Hypertension/CHF/CAD Annual BMP Blood Test 12/14/2025 12/14/2024, 12/07/2024, 11/30/2024, Additional history exists Colorectal Cancer Screening: Colonoscopy 03/06/2027 03/06/2017 Cholesterol Screening (Lipid Panel) 10/28/2027 10/28/2022 DTaP,Tdap,and Td Vaccines (4 - Td or Tdap) 07/06/2029 07/06/2019, 11/28/2008, 01/04/1999 Hepatitis A Vaccines Aged Out 03/15/2014, 01/14/2014, 12/08/2013, Additional history exists No longer eligible based on patient's age to complete this topic Hepatitis B Vaccines Completed 03/15/2014, 01/14/2014, 12/08/2013, Additional history exists Hepatitis C Screening Addressed 12/13/2016 Overri dden with the intention of not completing the topic Pneumococcal Vaccine: 50+ Years Completed 07/06/2019, 11/16/2015, 04/02/2011 RSV Immunization Adult Patients Completed 09/10/2023 Influenza Vaccine Completed 07/01/2024, , 08/06/2023, Additional history exists HIB Vaccines Aged Out No longer eligi ble based on patient's age to complete this topic HPV Vaccines Aged Out No longer eligi ble based on patient's age to complete this topic IPV Vaccines Aged Out No longer eligi ble based on patient's age to complete this topic MMR Vaccines Aged Out No longer eligi ble based on patient's age to complete this topic Meningococcal ACWY Vaccine Aged Out N o longer eligible based on patient's age to complete this topic Meningococcal B Vaccine Aged Out No l onger eligible based on patient's age to complete this topic RSV Immunization Patients Under 20 months Aged Out No longer eligible based on patient's age to complete this topic Varicella Vaccines Aged Out No longer eligible based on patient's age to complete this topic Medical Devices Implanted Type Area Card Player Device Identifier Shelf Expiration Date Model / Serial / Lot Sponge Surgifoam Gel 12 X 7mm - [id number] Implanted:Qty : 1 on 09/14/2024 by Babak Carrasquillo MD at [facility] Hemostasis Right: Hip [employer] [id number] 08/13/20261971 290149 Screw Bone 6.5x35mm Trilogy - [id number] Implanted:Qty : 1 on 09/14/2024 by Babak Carrasquillo MD at [facility] Internal and External Fixation Right: Hip [employer] 03/30/2034 [id number] / / [id number] Screw Bone 6.5x40mm Trilogy - [id number] Implanted:Qty : 1 on 09/14/2024 by Babak Carrasquillo MD at [facility] Internal and External Fixation Right: Hip [employer] 10/31/2033 [id number] / / [id number] Screw Bone 6.5x25mm Trilogy - [id number] Implanted:Qty : 1 on 09/14/2024 by Babak Carrasquillo MD at [facility] Internal and External Fixation Right: Hip [employer] 03/23/2034 [id number] / / [id number] Screw Bone 6.5x20mm Trilogy - Sna - [id number] Implanted:Qty : 2 on 09/14/2024 by Babak Carrasquillo MD at [facility] Internal and External Fixation Right: Hip [employer] [id number] 02/25/2034 [id number] / NA / [id number] Screw Bone 6.5x20mm Trilogy - [id number] Implanted:Qty : 1 on 09/14/2024 by Babak Carrasquillo MD at [facility] Internal and External Fixation Right: Hip [employer] 03/02/2034 [id number] / / [id number] Screw Bone 6.5x20mm Trilogy - [id number] Implanted:Qty : 1 on 09/14/2024 by Babak Carrasquillo MD at [facility] Internal and External Fixation Right: Hip [employer] [id number] 12/29/2033 [id number] / / [id number] Screw Bone 6.5x40mm Trilogy - Sna - [id number] Implanted:Qty : 1 on 09/14/2024 by Babak Carrasquillo MD at [facility] Internal and External Fixation Right: Hip [employer] [id number] / NA / [id number] Hip Hd Constrn Frdm -6mm - [id number] Implanted:Qty : 1 on 09/14/2024 by Babak Carrasquillo MD at [facility] Joints Hip Right: Hip [employer] [id number] 06/16/2033-311426 / / [id number] Plate Hot Strip Mill Supervisor Troch Lg 210mm Vitallium W 2 2mm Cabl Stry-Howm [id number] Implanted:Qty : 1 on 06/08/2024 by Babak Carrasquillo MD Right: Hip [employer] [id number] 02/19/2028 6704-3-093 / / [id number] Cable Slv Set D-M Bead 2.0mm Vit Med Stry-Howm 3765-2-447-11 4159 Implanted:Qty : 1 on 06/08/2024 by Babak Carrasquillo MD Right: Hip [employer] [id number] 11/17/2028 6704-0-510 / / [id number] Cable Slv Set D-M Bead 2.0mm Vit Med Stry-Howm 1584-3-373- 4159 Implanted:Qty : 1 on 06/08/2024 by Babak Carrasquillo MD Right: Hip [employer] [id number] 11/17/2028 6704-0-510 / / [id number] Cable Slv Set D-M Bead 2.0mm Vit Med Stry-Howm 0562-6-935- 4159 Implanted:Qty : 1 on 06/08/2024 by Babak Carrasquillo MD Right: Hip [employer] [id number] 11/17/2028 6704-0-510 / / [id number] Cement Bone Surg Simplex Radiopq Stry-How 2564-9-600-11 4092 Implanted:Qty : 1 on 06/08/2024 by Babak Carrasquillo MD Right: Hip [employer] [id number] 05/08/2026 6191-1-010 / / [id number] Cement Bone Surg Simplex Radiopq Stry-Howm 5003-1-972-11 4092 Implanted:Qty : 1 on 06/08/2024 by Babak Carrasquillo MD Right: Hip [employer] [id number] 05/08/2026 6191- / / [id number] Impl Set Bead 2.0mm Vit Brandt Theodorey-How 3987-2-654-11 4128 Implanted:Qty : 1 on 06/08/2024 by Babak Carrasquillo MD Right: Hip [employer] [id number] 01/19/2029 6704-0-520 / / [id number] Impl Set Bead 2.0mm Vit Brandt Kaminski-How 4021-8-877-11 4128 Implanted:Qty : 1 on 06/08/2024 by Babak Carrasquillo MD Right: Hip [employer] [id number] 01/19/2029 6704-0-520 / / [id number] Impl Set Bead 2.0mm Vit Brandt Kaminski-How 0843-6-418-11 4128 Implanted:Qty : 1 on 06/08/2024 by Babak Carrasquillo MD Right: Hip [employer] [id number] 01/09/2029 6704-0-520 / / [id number] Impl Set Bead 2.0mm Vit Brandt Theodorey-How 1213-0-414-11 4128 Implanted:Qty : 1 on 06/08/2024 by Babak Carrasquillo MD Right: Hip [employer] [id number] 01/09/2029 6704-0-520 / / [id number] Impl Set Bead 2.0mm Vit Brandt Theodorey-How 3941-0-268-11 4128 Implanted:Qty : 1 on 06/08/2024 by Babak Carrasquillo MD Right: Hip [employer] [id number] 10/06/2028 6704-0-520 / / [id number] Cable Slv Set D-M Bead 2.0mm Vit Med Stry-Howm 2656-1-056-11 4159 Implanted:Qty : 1 on 06/08/2024 by Babak Carrasquillo MD Right: Hip [employer] [id number] 11/17/2028 6704-0-510 / / [id number] G7 [place] Constrained Liner Neutral 36mm Size I Implanted:Qty : 1 on 09/14/2024 by Babak Carrasquillo MD at [facility] Right: Hip [employer] 03/20/2027 [id number] / [id number] / [id number] Implant Record G7 [place] Multihole 68mm Implanted:Qty : 1 on 09/14/2024 by Babak Carrasquillo MD at [facility] Right: Hip [employer] 04/04/2026 [id number] / NA / [id number] Implant Record Tatianna Con Sz A Std 50mm Implanted:Qty : 1 on 09/14/2024 by Babak Carrasquillo MD at [facility] Right: Hip [employer] [id number] 09/19/2031-389792 / NA / [id number] Implant Record Implanted:Qty : 1 on 09/14/2024 by Babak Carrasquillo MD at [facility] Right: Hip [employer] [id number] 11/13/2033607999 / NA / [id number] Explanted Type Area Card Player Device Identifier Shelf Expiration Date Model / Serial / Lot Bone Cement Explanted:Qty : 2 on 09/14/2024 by Babak Carrasquillo MD at [facility] Bone Cement Right: Hip [facility] 09/15/2024 000 / 000 / 000 Procedures Procedure Name Priority Date/Time Associated Diagnosis Comments CBC WITH AUTO DIFFERENTIAL Routine 12/14/2024 1:34 PM EDT CLL (chronic lymphocytic leukemia) (CMS/[facility] V24, CMS/[facility] V28) Anemia, unspecified type TYPE AND SCREEN Routine 12/14/2024 1:34 PM EDT Iron deficiency anemia due to chronic blood loss Recurrent squamous cell carcinoma of skin COMPREHENSIVE METABOLIC PANEL Routine 12/14/2024 1:34 PM EDT CLL (chronic lymphocytic leukemia) (CMS/HCC V24, CMS/HCC V28) Anemia, unspecified type HAPTOGLOBIN Routine 12/14/2024 1:34 PM EDT CLL (chronic lymphocytic leukemia) (CMS/HCC V24, CMS/[facility] V28) Anemia, unspecified type CBC AND DIFFERENTIAL Routine 12/14/2024 1:34 PM EDT CLL (chronic lymphocytic leukemia) ([facility]/HCC V24, CMS/HCC V28) Anemia, unspecified type [place] REMOVAL CERUMEN IMPACTED IRRIGATION/LAVAGE UNILATERAL Routine 12/10/2024 2:12 PM EDT Bilateral impacted cerumen MANUAL DIFFERENTIAL - [facility] WAM Routine 12/07/2024 10:55 AM EDT CLL (chronic lymphocytic leukemia) (CMS/HCC V24, CMS/HCC V28) Anemia, unspecified type CBC WITH AUTO DIFFERENTIAL Routine 12/07/2024 10:55 AM EDT CLL (chronic lymphocytic leukemia) (CMS/HCC V24, CMS/HCC V28) Anemia, unspecified type TYPE AND SCREEN Routine 12/07/2024 10:55 AM EDT Iron deficiency anemia due to chronic blood loss Recurrent squamous cell carcinoma of skin COMPREHENSIVE METABOLIC PANEL Routine 12/07/2024 10:55 AM EDT CLL (chronic lymphocytic leukemia) ([facility]/HCC V24, CMS/HCC V28) Anemia, unspecified type HAPTOGLOBIN Routine 12/07/2024 10:55 AM EDT CLL (chronic lymphocytic leukemia) ([facility]/HCC V24, CMS/HCC V28) Anemia, unspecified type CBC AND DIFFERENTIAL Routine 12/07/2024 10:55 AM EDT CLL (chronic lymphocytic leukemia) ([facility]/HCC V24, CMS/HCC V28) Anemia, unspecified type TRANSFUSE RED BLOOD CELLS Routine 12/02/2024 11:50 AM EDT CLL (chronic lymphocytic leukemia) (CMS/HCC V24, CMS/HCC V28) TRANSFUSE RED BLOOD CELLS Routine 12/02/2024 9:09 AM EDT CLL (chronic lymphocytic leukemia) (CMS/HCC V24, CMS/[facility] V28) PREPARE RBC STAT 12/02/2024 8:16 AM EDT CLL (chronic lymphocytic leukemia) (CMS/HCC V24, CMS/HCC V28) RBC MORPHOLOGY REVIEW Routine 11/30/2024 12:51 PM EDT CLL (chronic lymphocytic leukemia) (CMS/HCC V24, CMS/HCC V28) Anemia, unspecified type CBC WITH AUTO DIFFERENTIAL Routine 11/30/2024 12:51 PM EDT CLL (chronic lymphocytic leukemia) (CMS/HCC V24, CMS/HCC V28) Anemia, unspecified type TYPE AND SCREEN Routine 11/30/2024 12:51 PM EDT Iron deficiency anemia due to chronic blood loss Recurrent squamous cell carcinoma of skin COMPREHENSIVE METABOLIC PANEL Routine 11/30/2024 12:51 PM EDT CLL (chronic lymphocytic leukemia) (CMS/HCC V24, CMS/HCC V28) Anemia, unspecified type HAPTOGLOBIN Routine 11/30/2024 12:51 PM EDT CLL (chronic lymphocytic leukemia) (CMS/HCC V24, CMS/HCC V28) Anemia, unspecified type CBC AND DIFFERENTIAL Routine 11/30/2024 12:51 PM EDT CLL (chronic lymphocytic leukemia) (CMS/HCC V24, CMS/HCC V28) Anemia, unspecified type CBC WITH AUTO DIFFERENTIAL Routine 11/23/2024 10:52 AM EDT CLL (chronic lymphocytic leukemia) (CMS/HCC V24, CMS/HCC V28) Anemia, unspecified type TYPE AND SCREEN Routine 11/23/2024 10:52 AM EDT Iron deficiency anemia due to chronic blood loss Recurrent squamous cell carcinoma of skin COMPREHENSIVE METABOLIC PANEL Routine 11/23/2024 10:52 AM EDT CLL (chronic lymphocytic leukemia) (CMS/HCC V24, CMS/HCC V28) Anemia, unspecified type HAPTOGLOBIN Routine 11/23/2024 10:52 AM EDT CLL (chronic lymphocytic leukemia) (CMS/HCC V24, CMS/HCC V28) Anemia, unspecified type CBC AND DIFFERENTIAL Routine 11/23/2024 10:52 AM EDT CLL (chronic lymphocytic leukemia) (CMS/HCC V24, CMS/HCC V28) Anemia, unspecified type CT NECK SOFT TISSUE W CONTRAST Routine 11/17/2024 10:40 AM EDT Recurrent squamous cell carcinoma of skin CT CHEST W CONTRAST Routine 11/17/2024 1 0:40 AM EDT Recurrent squamous cell carcinoma of skin CBC WITH AUTO DIFFERENTIAL Routine 11/16/2024 10:44 AM EDT CLL (chronic lymphocytic leukemia) (CMS/HCC V24, CMS/HCC V28) Anemia, unspecified type TYPE AND SCREEN Routine 11/16/2024 10:44 AM EDT Iron deficiency anemia due to chronic blood loss Recurrent squamous cell carcinoma of skin COMPREHENSIVE METABOLIC PANEL Routine 11/16/2024 10:44 AM EDT CLL (chronic lymphocytic leukemia) (CMS/HCC V24, CMS/HCC V28) Anemia, unspecified type HAPTOGLOBIN Routine 11/16/2024 10:44 AM EDT CLL (chronic lymphocytic leukemia) (CMS/HCC V24, CMS/HCC V28) Anemia, unspecified type CBC AND DIFFERENTIAL Routine 11/16/2024 10:44 AM EDT CLL (chronic lymphocytic leukemia) (CMS/HCC V24, CMS/HCC V28) Anemia, unspecified type CBC WITH AUTO DIFFERENTIAL Routine 11/09/2024 11:20 AM EST Iron deficiency anemia due to chronic blood loss Recurrent squamous cell carcinoma of skin TYPE AND SCREEN Routine 11/09/2024 11:20 AM EST Iron deficiency anemia due to chronic blood loss Recurrent squamous cell carcinoma of skin CBC AND DIFFERENTIAL Routine 11/09/2024 11:20 AM EST Iron deficiency anemia due to chronic blood loss Recurrent squamous cell carcinoma of skin COMPREHENSIVE METABOLIC PANEL Routine 11/09/2024 11:20 AM EST CLL (chronic lymphocytic leukemia) ([facility] V24, [facility] V28) Anemia, unspecified type HAPTOGLOBIN Routine 11/09/2024 11:20 AM EST CLL (chronic lymphocytic leukemia) ([facility] V24, [facility] V28) Anemia, unspecified type LACTATE DEHYDROGENASE Routine 11/09/2024 11:20 AM EST CLL (chronic lymphocytic leukemia) ([facility] V24, [facility] V28) BETA 2 MICROGLOBULIN, SERUM Routine 11/09/2024 11:20 AM EST CLL (chronic lymphocytic leukemia) ([facility] V24, [facility] V28) TRANSFUSE RED BLOOD CELLS Routine 11/03/2024 12:47 PM EST CLL (chronic lymphocytic leukemia) ([facility] V24, [facility] V28) PREPARE RBC STAT 11/03/2024 9:54 AM EST CLL (chronic lymphocytic leukemia) ([facility] V24, [facility] V28) CBC WITH AUTO DIFFERENTIAL Routine 11/02/2024 11:27 AM EST Iron deficiency anemia due to chronic blood loss Recurrent squamous cell carcinoma of skin TYPE AND SCREEN Routine 11/02/2024 11:27 AM EST Iron deficiency anemia due to chronic blood loss Recurrent squamous cell carcinoma of skin CBC AND DIFFERENTIAL Routine 11/02/2024 11:27 AM EST Iron deficiency anemia due to chronic blood loss Recurrent squamous cell carcinoma of skin COMPREHENSIVE METABOLIC PANEL Routine 11/02/2024 11:27 AM EST CLL (chronic lymphocytic leukemia) ([facility] V24, [facility] V28) Anemia, unspecified type HAPTOGLOBIN Routine 11/02/2024 11:27 AM EST CLL (chronic lymphocytic leukemia) ([facility] V24, [facility] V28) Anemia, unspecified type TRANSFUSE RED BLOOD CELLS Routine 10/27/2024 1:13 PM EST CLL (chronic lymphocytic leukemia) ([facility] V24, [facility] V28) TRANSFUSE RED BLOOD CELLS Routine 10/27/2024 10:36 AM EST CLL (chronic lymphocytic leukemia) ([facility] V24, [facility] V28) PREPARE RBC STAT 10/26/2024 2:26 PM EST CLL (chronic lymphocytic leukemia) ([facility] V24, [facility] V28) MANUAL DIFFERENTIAL - [facility] WAM Routine 10/26/2024 10:24 AM EST Iron deficiency anemia due to chronic blood loss Recurrent squamous cell carcinoma of skin CBC WITH AUTO DIFFERENTIAL Routine 10/26/2024 10:24 AM EST Iron deficiency anemia due to chronic blood loss Recurrent squamous cell carcinoma of skin TYPE AND SCREEN Routine 10/26/2024 10:24 AM EST Iron deficiency anemia due to chronic blood loss Recurrent squamous cell carcinoma of skin CBC AND DIFFERENTIAL Routine 10/26/2024 10:24 AM EST Iron deficiency anemia due to chronic blood loss Recurrent squamous cell carcinoma of skin COMPREHENSIVE METABOLIC PANEL Routine 10/26/2024 10:24 AM EST CLL (chronic lymphocytic leukemia) ([facility] V24, [facility] V28) Anemia, unspecified type HAPTOGLOBIN Routine 10/26/2024 10:24 AM EST CLL (chronic lymphocytic leukemia) ([facility] V24, [facility] V28) Anemia, unspecified type TRANSFUSE RED BLOOD CELLS Routine 10/20/2024 12:46 PM EST CLL (chronic lymphocytic leukemia) ([facility] V24, [facility] V28) PREPARE RBC STAT 10/20/2024 11:09 AM EST CLL (chronic lymphocytic leukemia) ([facility] V24, [facility] V28) RETICULOCYTE COUNT STAT 10/20/2024 9: 55 AM EST CLL (chronic lymphocytic leukemia) ([facility] V24, [facility] V28) HAPTOGLOBIN STAT 10/20/2024 9:55 AM EST CLL (chronic lymphocytic leukemia) ([facility] V24, [facility] V28) TYPE AND SCREEN STAT 10/20/2024 9:55 AM EST Iron deficiency anemia due to chronic blood loss CLL (chronic lymphocytic leukemia) ([facility] V24, [facility] V28) DIRECT ANTIGLOBULIN TEST Add-On 10/20/2024 9:54 AM EST HEPATIC FUNCTION PANEL Routine 3:43 PM EST CLL (chronic lymphocytic leukemia) ([facility] V24, [facility] V28) CBC WITH AUTO DIFFERENTIAL Routine 10/19/2024 3:25 PM EST CLL (chronic lymphocytic leukemia) ([facility] V24, [facility] V28) VITAMIN B12 AND FOLATE Routine 3:25 PM EST CLL (chronic lymphocytic leukemia) ([facility] V24, [facility] V28) IRON AND TIBC Routine 10/19/2024 3:25 PM EST CLL (chronic lymphocytic leukemia) ([facility] V24, [facility] V28) FERRITIN Routine 10/19/2024 3:25 PM EST CLL (chronic lymphocytic leukemia) ([facility] V24, [facility] V28) BETA 2 MICROGLOBULIN, SERUM Routine 10/19/2024 3:25 PM EST CLL (chronic lymphocytic leukemia) ([facility] V24, [facility] V28) LACTATE DEHYDROGENASE Routine 10/19/2024 3:25 PM EST CLL (chronic lymphocytic leukemia) ([facility] V24, [facility] V28) COMPREHENSIVE METABOLIC PANEL Routine 10/19/2024 3:25 PM EST CLL (chronic lymphocytic leukemia) ([facility] V24, CMS/[facility] V28) CBC AND DIFFERENTIAL Routine 10/19/2024 3:25 PM EST CLL (chronic lymphocytic leukemia) ([facility] V24, CMS/[facility] V28) BILIRUBIN, DIRECT Routine 09/26/2024 6:5 9 AM EST TYPE AND SCREEN Routine 09/26/2024 6:58 AM EST COMPLETE BLOOD COUNT Routine 09/26/2024 6:58 AM EST LACTATE DEHYDROGENASE Routine 09/26/2024 6:58 AM EST COMPREHENSIVE METABOLIC PANEL Routine 09/26/2024 6:58 AM EST FIBRINOGEN Routine 09/26/2024 6:58 AM EST ACTIVATED PARTIAL THROMBOPLASTIN TIME Routine 09/26/2024 6:58 AM EST PROTHROMBIN TIME WITH INR Routine 09/26/2024 6:58 AM EST OXYGEN THERAPY, ADULT Routine 09/25/2024 8:01 AM EST OXYGEN THERAPY, ADULT Routine 09/25/2024 8:01 AM EST COMPLETE BLOOD COUNT Routine 09/25/2024 7:07 AM EST LACTATE DEHYDROGENASE Routine 09/25/2024 7:07 AM EST COMPREHENSIVE METABOLIC PANEL Routine 09/25/2024 7:07 AM EST BILIRUBIN, DIRECT Routine 09/25/2024 7:0 7 AM EST FIBRINOGEN Routine 09/25/2024 7:07 AM EST ACTIVATED PARTIAL THROMBOPLASTIN TIME Routine 09/25/2024 7:07 AM EST PROTHROMBIN TIME WITH INR Routine 09/25/2024 7:07 AM EST OXYGEN THERAPY, ADULT Routine 09/24/2024 8:00 PM EST OXYGEN THERAPY, ADULT Routine 09/24/2024 8:00 PM EST COMPLETE BLOOD COUNT Routine 09/24/2024 10:44 AM EST LACTATE DEHYDROGENASE Routine 09/24/2024 10:44 AM EST COMPREHENSIVE METABOLIC PANEL Routine 09/24/2024 10:44 AM EST BILIRUBIN, DIRECT Routine 09/24/2024 10: 44 AM EST FIBRINOGEN Routine 09/24/2024 10:44 AM EST ACTIVATED PARTIAL THROMBOPLASTIN TIME Routine 09/24/2024 10:44 AM EST PROTHROMBIN TIME WITH INR Routine 09/24/2024 10:44 AM EST OXYGEN THERAPY, ADULT Routine 09/23/2024 8:00 PM EST OXYGEN THERAPY, ADULT Routine 09/23/2024 8:00 PM EST PREPARE RBC Routine 09/23/2024 3:38 PM EST TYPE AND SCREEN Routine 09/23/2024 1:21 PM EST CBC WITH AUTO DIFFERENTIAL STAT 09/23/2024 10:54 AM EST CBC AND DIFFERENTIAL STAT 09/23/2024 10:54 AM EST HEMOGLOBIN AND HEMATOCRIT Routine 09/23/2024 6:40 AM EST OXYGEN THERAPY, ADULT Routine 09/22/2024 8:01 PM EST OXYGEN THERAPY, ADULT Routine 09/22/2024 8:[address] ANGIO PELVIS WO AND/OR W CONTRAST STAT 09/22/2024 5:16 PM EST VAS US DUPLEX LOWER EXT VENOUS RIGHT STAT 09/22/2024 12:45 PM EST 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 with presence of antibiotic-impregn ated cement spacer COMPREHENSIVE METABOLIC PANEL STAT 09/22/2024 11:30 AM EST FIBRINOGEN STAT 09/22/2024 11:30 AM EST PROTHROMBIN TIME WITH INR STAT 09/22/2024 11:30 AM EST ACTIVATED PARTIAL THROMBOPLASTIN TIME STAT 09/22/2024 11:30 AM EST BILIRUBIN, TOTAL AND DIRECT STAT 09/22/2024 11:30 AM EST HAPTOGLOBIN STAT 09/22/2024 11:30 AM EST LACTATE DEHYDROGENASE STAT 09/22/2024 11:30 AM EST CBC WITH AUTO DIFFERENTIAL STAT 09/22/2024 10:33 AM EST CBC AND DIFFERENTIAL STAT Add-on 09/22/2024 10:33 AM EST PREPARE RBC Routine 09/22/2024 9:53 AM EST OXYGEN THERAPY, ADULT Routine 09/22/2024 8:01 AM EST OXYGEN THERAPY, ADULT Routine 09/22/2024 8:01 AM EST HEMOGLOBIN AND HEMATOCRIT Routine 09/22/2024 6:04 AM EST OXYGEN THERAPY, ADULT Routine 09/21/2024 8:02 AM EST OXYGEN THERAPY, ADULT Routine 09/21/2024 8:02 AM EST HEMOGLOBIN AND HEMATOCRIT Routine 09/21/2024 6:14 AM EST TRANSFUSE RED BLOOD CELLS Routine 09/21/2024 12:14 AM EST LIPID PANEL Routine 10/28/2022 from Last 3 Months or Most Recently Relevant to Health Maintenance Results * (ABNORMAL) CBC auto differential (12/14/2024 1:34 PM EDT) Only the most recent of11 resultswithin the time period is included. WBC 11.6(H) 4.8 - 10.8 K/mcL LAB HEMETOLOGY METHOD 12/14/2024 6:15 PM EDT [facility] RBC 3.20(L) 4.50 - 5.50 M/mcL LAB HEMETOLOGY METHOD 12/14/2024 6:15 PM EDT [facility] Hemoglobin 10.3(L) 13.5 - 17.5 g/dL LAB [facility]EM[facility]OLOGY [facility] Hematocrit 32.9(L) 42.0 - 54.0 % LAB HEMETOLOGY METHOD 12/14[facility]2024 6[facility] MCV 102.8(H) 79.0 - 98.0 FL LAB HEMETOLOGY METHOD 12/14/2024 6:15 PM EDT [facility] MCH 32.2(H) 27.0 - 32.0 pcg LAB HEMETOLOGY METHOD 12/14[facility]2024 6[facility] MCHC 31.3(L) 32.0 - 37.0 g/dL LAB HEMETOLOGY METHOD 12/14/2024 6[facility] RDW 18.6(H) 11.0 - 15.0 % LAB HEMETOLOGY METHOD 12/14/2024 6:15 PM EDT [facility] Platelets 200 130 - 400 K/mcL LAB HEMETOLOGY METHOD 12/14/2024 6:15 PM EDT [facility] MPV 9.3 7.0 - 11.0 FL LAB HEMETOLOGY METHOD 12/14[facility]2024 6[facility] NRBC 0.0 <1.0 % LAB HEMETOLOGY METHOD 12/14/2024 6:15 PM EDT [facility] NRBC Absolute 0.00 <0.10 K/mcL LAB HEMETOLOGY METHOD 12/14/2024 6:15 PM [facility] Neutrophils Relative 23.8 % LAB HEMETOLOGY METHOD 12/14/2024 6:15 PM [facility] Comment:This is an appended report. These results have been appended to a previously preliminary verified report. Lymphocytes Relative 73.5 % LAB HEMETOLOGY METHOD 12/14/2024 6:15 PM [facility] Comment:This is an appended report. These results have been appended to a previously preliminary verified report. Monocytes Relative 1.5 % LAB HEMETOLOGY METHOD 12/14/2024 6:15 PM [facility] Comment:This is an appended report. These results have been appended to a previously preliminary verified report. Eosinophils Relative 0.5 % LAB HEMETOLOGY METHOD 12/14/2024 6:15 PM [facility] Comment:This is an appended report. These results have been appended to a previously preliminary verified report. Basophils Relative 0.3 % LAB HEMETOLOGY METHOD 12/14/2024 6:15 PM [facility] Comment:This is an appended report. These results have been appended to a previously preliminary verified report. Immature Granulocytes Relative 0.4 % LAB HEMETOLOGY METHOD 12/14/2024 6:15 PM [facility] Comment:This is an appended report. These results have been appended to a previously preliminary verified report. Neutrophils Absolute 2.76 1.50 - 7.00 K/mcL LAB HEMETOLOGY METHOD 12/14/2024 6:15 PM [facility] Comment:This is an appended report. These results have been appended to a previously preliminary verified report. Lymphocytes Absolute 8.51(H) 1.00 - 5.00 K/mcL LAB HEMETOLOGY METHOD 12/14/2024 6:15 PM EDT [facility] Comment:This is an appended report. These results have been appended to a previously preliminary verified report. Monocytes Absolute 0.17(L) 0.20 - 1.00 K/mcL LAB HEMETOLOGY METHOD 12/14/2024 6:15 PM EDT [facility] Comment:This is an appended report. These results have been appended to a previously preliminary verified report. Eosinophils Absolute 0.06 0.00 - 0.50 K/mcL LAB HEMETOLOGY METHOD 12/14/2024 6:15 PM EDT [facility] Comment:This is an appended report. These results have been appended to a previously preliminary verified report. Basophils Absolute 0.03 0.00 - 0.20 K/[facility] 12/14/2024 6:15 PM EDT [facility] Comment:This is an appended report. These results have been appended to a previously preliminary verified report. Immature Granulocytes Absolute 0.05(H) 0.00 - 0.03 K/mcL LAB HEMETOLOGY METHOD 12/14/2024 6:15 PM EDT [facility] Comment:This is an appended report. These results have been appended to a previously preliminary verified report. Blood Venous blood specimen / Unknown Venipuncture / Unknown 12/14/2024 1:34 PM EDT 12/14/2024 4:43 PM EDT us Lamar Cotton MD LAB BLOOD ORDERABLES Final R esult [facility] [address] [place] [address], * Type and screen (12/14/2024 1:34 PM EDT) Only the most recent of11 resultswithin the time period is included. ABO Group A 12/15/2024 8:57 AM EDT [facility] Rh Type Positive 12/15/2024 8:57 AM EDT [facility] Antibody Screen Negative 12/15/2024 8:57 AM EDT [facility] Blood Venous blood specimen / Unknown Venipuncture / Unknown 12/14/2024 1:34 PM EDT 12/14/2024 4:42 PM EDT Lamar Cotton MD LAB BLOOD BANK TEST ORDERABL ES Final Result Performing Organization Address City/[facility] Co de Phone Number [facility] [address] [place] [address], [place] [phone] * (ABNORMAL) Haptoglobin (12/14/2024 1:34 PM EDT) Only the most recent of10 resultswithin the time period is included. Haptoglobin <8(L) 16 - 200 mg/dL LAB CHEMISTRY METHOD 12/14/2024 5:45 PM EDT [facility] Blood Venous blood specimen / Unknown Venipuncture / Unknown 12/14/2024 1:34 PM EDT 12/14/2024 4:42 PM EDT Lamar Cotton MD LAB BLOOD ORDERABLES Final R esult Performing Organization Address [facility]/ZIP Co de Phone Number [facility] [address] [place] [address], [place] [phone] * (ABNORMAL) Comprehensive metabolic panel (12/14/2024 1:34 PM EDT) Only the most recent of13 resultswithin the time period is included. Sodium 132(L) 133 - 145 mmol/L LAB CHEMISTRY METHOD 12/14/2024 5:43 PM EDT [facility] Potassium 3.5 3.5 - 5.5 mmol/L LAB CHEMISTRY METHOD 12/14/2024 5:43 PM EDT [facility] Chloride 100 96 - 110 mmol/L LAB CHEMISTRY METHOD 12/14/2024 5:43 PM [facility] CO2 26 21 - 32 mmol/L LAB CHEMISTRY METHOD 12/14/2024 5:43 PM [facility] Anion Gap 6 3 - 11 LAB CHEMISTRY METHOD 12/14/2024 5:43 PM [facility] Glucose 81 70 - 100 mg/dL LAB CHEMISTRY METHOD 12/14/2024 5:43 PM [facility] BUN 14 5 - 25 mg/dL LAB CHEMISTRY METHOD 12/14/2024 5:43 PM [facility] Creatinine 0.65(L) 0.70 - 1.30 mg/dL LAB CHEMISTRY METHOD 12/14/2024 5:43 PM [facility] eGFR 99 >=60 mL/min/1. 73m2 LAB CHEMISTRY METHOD 12/14/2024 5:43 PM [facility] Comment:Calculation based on the??Chronic Kidney Disease Epidemiology Collaboration (CKD-EPI) equation refit??without adjustment for race. BUN/Creatinine Ratio 21.5 LAB CHEMISTRY METHOD 12/14/2024 5:43 PM [facility] Calcium 8.7 8.5 - 10.5 mg/dL LAB CHEMISTRY METHOD 12/14/2024 5:43 PM [facility] AST (SGOT) 41 10 - 42 unit/L LAB CHEMISTRY METHOD 12/14/2024 5:43 PM [facility] ALT (SGPT) 30 10 - 60 unit/L LAB CHEMISTRY METHOD 12/14/2024 5:43 PM [facility] Alkaline Phosphatase 160(H) 42 - 121 unit/L LAB CHEMISTRY METHOD 12/14/2024 5:43 PM [facility] Total Protein 6.4 6.0 - 8.0 g/dL LAB CHEMISTRY METHOD 12/14/2024 5:43 PM [facility] Albumin 3.4 3.2 - 5.0 g/dL LAB CHEMISTRY METHOD 12/14/2024 5:43 PM EDT [facility] Total Bilirubin 0.6 0.0 - 1.4 mg/dL LAB CHEMISTRY METHOD 12/14/2024 5:43 PM EDT [facility] Blood Venous blood specimen / Unknown Venipuncture / Unknown 12/14/2024 1:34 PM EDT 12/14/2024 4:42 PM EDT Lamar Cotton MD LAB BLOOD ORDERABLES Final R esult [facility]) [facility] [address] [place] [address], [place] [phone] * [place] REMOVAL CERUMEN IMPACTED IRRIGATION/LAVAGE UNILATERAL (12/10/2024 2:12 PM EDT) Narrative Laura Rodriguez PA - 12/10/2024 2:12 PM EDT TRISTON Hunt ? 12/10/2024 ??2:18 PM Ear cerumen removal Date/Time: 12/10/2024 2:12 PM Performed by: TRISTON Hunt Authorized by: TRISTON Hunt ?? Informed Consent: ??Laterality: ??Bilateral ??Relevant images/test results available and reviewed: no ?Health status cleared: ??Yes ??Procedure/treatment, purpose, treatment alternatives, risks/potential complications and benefits explained: yes ?Patient questions answered: yes ?Patient agrees, verbalizes understanding, and wants to proceed: yes ?Consent given by: ??Patient ??Informed consent discussion completed by Physician/XAVIER with patient: ?? Verbal ??Pre-procedure timeout performed: no ?? Procedure details: ??Location: ??R ear and L ear ??Procedure type: irrigation ?? Post-procedure details: ??Inspection: ??TM intact ??Hearing quality: ??Normal ??Patient tolerance of procedure: ??Tolerated well, no immediate complications us Laura [facility]/BEDSIDE ORDERABL ES Final Result * (ABNORMAL) Manual differential (12/07/2024 10:55 AM EDT) Only the most recent of2 resultswithin the time period is included. Neutrophils % 17.0 % LAB HEMETOLOGY METHOD 12/07/2024 1:54 PM EDT [facility] Lymphocytes % 81.0 % LAB HEMETOLOGY METHOD 12/07/2024 1:54 PM EDT [facility] Monocytes % 2.0 % LAB HEMETOLOGY METHOD 12/07/2024 1:54 PM EDT [facility] Eosinophils % 0.0 % [facility] Basophils % 0.0 % LAB HEMETOLOGY METHOD 12/07/2024 1:54 PM EDT [facility] Neutrophils Absolute Manual 1.89 1.50 - 7.00 K/mcL LAB HEMETOLOGY METHOD 12/07[facility]2024 [facility] Lymphocytes Absolute 8.99(H) 1.00 - 5.00 K/mcL LAB HEMETOLOGY METHOD 12/07/2024 1:54 [facility] Monocytes Absolute Manual 0.22 0.20 - 1.00 K/mcL LAB HEMETOLOGY METHOD 12/07/2024 1:54 PM EDT [facility] Eosinophils Absolute Manual 0.00 0.00 - 0.50 K/mcL LAB HEMETOLOGY METHOD 12/07/2024 1:54 PM EDT [facility] Basophils Absolute Manual 0.00 0.00 - 0.20 K/mcL LAB HEMETOLOGY METHOD 12/07/2024 1:54 [facility] Rbc Morphology Consistent with indices Consistent with indices, Normal for [place] LAB HEMETOLOGY METHOD 12/07/2024 1:54 PM EDT [facility] Platelet Morphology - WAM Normal Normal LAB HEMETOLOGY METHOD 12/07/2024 1:54 PM EDT [facility] Blood Venous blood specimen / Unknown Venipuncture / Unknown 12/07/2024 10:55 AM EDT 12/07/2024 11:28 AM EDT Lamar Cotton MD LAB BLOOD ORDERABLES Final R esult [facility] [address] [place] [address], [place] [phone] * Transfuse RBC (12/02/2024 2:20 PM EDT) Only the most recent of10 resultswithin the time period is included. Lamar Cotton MD BLOOD TRANSFUSION ORDERABLES Final Result * Prepare RBC: 2 Units (12/02/2024 8:16 AM EDT) Only the most recent of6 resultswithin the time period is included. Product Code [id number] 12/02/2024 11:49 AM EDT [facility] Unit Number [id number] 12/03/19 11:49 AM EDT [facility] Crossmatch Compatible 12/02/2024 8:19 AM EDT [facility] Dispense Status Transfused 12/02/2024 11:49 AM EDT [facility] Unit ABO Rh APOS 12/02/2024 11:49 [facility] Unit Expiration Date Time [id number] 12/02/2024 11:49 AM EDT [facility] Unit Blood Type 6200 12/02/2024 11:49 [facility] Product Code [id number] 12/02/2024 9:09 AM EDT [facility] Unit Number [id number] 12/03/19 9:09 AM EDT [facility] Crossmatch Compatible 12/02/2024 8:20 AM EDT [facility] Dispense Status Transfused 12/02/2024 9:09 AM EDT [facility] Unit ABO Rh APOS 12/02/2024 9:09 AM EDT [facility] Unit Expiration Date Time [id number] 12/02/2024 9:09 AM EDT [facility] Unit Blood Type 6200 12/02/2024 9:09 AM EDT [facility] Blood Venous blood specimen / Unknown 12/02/2024 8:16 AM EDT 11/30/2024 1:32 PM EDT us Lamar Cotton MD BLOOD BANK PRODUCT ORDERABLE S Final Result Performing Organization Address [facility]/ZIP Co de Phone Number [facility] [address] [place] [address], * (ABNORMAL) RBC morphology review (11/30/2024 12:51 PM EDT) Rbc Morphology Consistent with indices Consistent with indices, Normal for [place] LAB HEMETOLOGY METHOD 11/30/2024 2:12 PM EDT [facility] Platelet Morphology - WAM See Note(A) Normal LAB HEMETOLOGY METHOD 11/30/2024 2:12 PM EDT [facility] Comment:PLT: Normal Blood Venous blood specimen / Unknown Venipuncture / Unknown 11/30/2024 12:51 PM EDT 11/30/2024 1:34 PM EDT us Lamar Cotton MD LAB BLOOD ORDERABLES Final R esult [facility] [address] [place] [address], * CT Neck Soft Tissue w Contrast (11/17/2024 10:40 AM EDT) Anatomical Region Laterality Modality Head and Neck Computed Tomogra phy 11/17/2024 1:50 PM EDT Impressions 11/17/2024 1:59 PM EDT Impression: No evidence of recurrent mass or cervical lymphadenopathy. Telerad PA ([id number]) -------- FINAL REPORT -------- Dictated By: Jailyn Ballesteros Dictated Date: 11/17/2024 13:50 ET Assigned Physician: Jailyn Ballesteros Reviewed and Electronically Signed By: Jailyn Ballesteros Signed Date: 11/17/2024 13:59 ET Workstation ID: [id number] Transcribed By: Self Edit Transcribed Date: 11/17/2024 13:50 ET Narrative 11/17/2024 1:59 PM EDT History: Skin carcinoma right cheek, with lymph nodes, status post radiation treatment. Surveillance. Comparison: 08/18/24, 12/22/23, 02/19/23 Technique: Helical volumetric imaging of the neck was performed during the uneventful intravenous administration of 90 cc Isovue-370. DLP: 397.83 mGy/cm Oxley's ExtrapeTab [employer] VCT Iterative reconstruction technique Findings: Surgical clips are again seen in the subcutaneous soft tissues of the right cheek and within the deep soft tissue planes of the right neck, consistent with previous skin cancer resection/repair and lymph node dissection. No recurrent soft tissue mass or cervical lymphadenopathy is seen. The parotid glands are symmetric and normal in appearance. The left submandibular gland is unremarkable. The right submandibular gland is either small or absent, unchanged. The bilateral carotid arteries and internal jugular veins are patent. Moderate mural calcification of the right carotid bulb is again seen. The nasopharyngeal and oropharyngeal mucosal landmarks are intact. The epiglottis and aryepiglottic folds are normal. The vocal folds are symmetric and normal in appearance. No paraglottic mass is seen. The tongue base is unremarkable. The oral tongue is partially obscured by artifact arising from dental amalgam. The parapharyngeal fat is intact. No suspicious thyroid nodule is seen. The orbital contents are unremarkable. The included portions of the intracranial contents are remarkable for extensive deep white matter hypodensity, partially imaged, suggesting chronic microvascular ischemia in a patient of this age. No suspicious osseous destructive lesion is seen. Cervical disc degenerative changes and facet arthritis are noted, with bilateral bony neural foraminal narrowing which is worst at C5-6 and C6-7. Thick, flowing hyperostosis along the anterior aspect of the cervical spine suggests underlying diffuse idiopathic skeletal hyperostosis (DISH). Minimal mucoperiosteal thickening is seen within the maxillary sinuses. Procedure Note Jailyn Ballesteros MD - 11/17/2024 History: Skin carcinoma right cheek, with lymph nodes, status postradiation treatment. Surveillance. Comparison: 08/18/24, 12/22/23, 02/19/23 Technique: Helical volumetric imaging of the neck was performed during theuneventful intravenous administration of 90 cc Isovue-370. DLP: 397.83 mGy/cm LookIt VCT Iterative reconstruction technique Findings: Surgical clips are again seen in the subcutaneous soft tissues of theright cheek and within the deep soft tissue planes of the right neck,consistent with previous skin cancer resection/repair and lymph nodedissection. No recurrent soft tissue mass or cervical lymphadenopathy isseen. The parotid glands are symmetric and normal in appearance. The leftsubmandibular gland is unremarkable. The right submandibular gland iseither small or absent, unchanged. The bilateral carotid arteries andinternal jugular veins are patent. Moderate mural calcification of theright carotid bulb is again seen. The nasopharyngeal and oropharyngeal mucosal landmarks are intact. Theepiglottis and aryepiglottic folds are normal. The vocal folds aresymmetric and normal in appearance. No paraglottic mass is seen. Thetongue base is unremarkable. The oral tongue is partially obscured byartifact arising from dental amalgam. The parapharyngeal fat is intact. No suspicious thyroid nodule is seen. The orbital contents are unremarkable. The included portions of theintracranial contents are remarkable for extensive deep white matterhypodensity, partially imaged, suggesting chronic microvascular ischemiain a patient of this age. No suspicious osseous destructive lesion is seen. Cervical discdegenerative changes and facet arthritis are noted, with bilateral bonyneural foraminal narrowing which is worst at C5-6 and C6-7. Thick, flowinghyperostosis along the anterior aspect of the cervical spine suggestsunderlying diffuse idiopathic skeletal hyperostosis (DISH). Minimal mucoperiosteal thickening is seen within the maxillary sinuses. IMPRESSION: Impression: No evidence of recurrent mass or cervical lymphadenopathy. Telerad PA ([id number]) -------- FINAL REPORT -------- Dictated By: Jailyn Ballesteros Dictated Date: 11/17/2024 13:50 ET Assigned Physician: Jailyn Ballesteros Reviewed and Electronically Signed By: Jailyn Ballesteros Signed Date: 11/17/2024 13:59 ET Workstation ID: [id number] Transcribed By: Self Edit Transcribed Date: 11/17/2024 13:50 ET us Mimi Dawson [facility] IMG CT PROCEDURES Fin al Result * CT Chest w Contrast (11/17/2024 10:40 AM EDT) Anatomical Region Laterality Modality Body Computed Tomogra phy 11/17/2024 1:34 PM EDT Impressions 11/17/2024 1:49 PM EDT Impression: 1. Stable faint juxtapleural right apical groundglass/solid opacity since 08/18/24, with decrease in prominence since 09/23/23. 2. Multiple new bilateral groundglass opacities, most likely infectious/inflammatory in nature. No suspicious developing pulmonary nodule. 3. No developing thoracic lymphadenopathy. Telerad PA ([id number]) -------- FINAL REPORT -------- Dictated By: Jailyn Ballesteros Dictated Date: 11/17/2024 13:34 ET Assigned Physician: Jailyn Ballesteros Reviewed and Electronically Signed By: Jailyn Ballesteros Signed Date: 11/17/2024 13:49 ET Workstation ID: [id number] Transcribed By: Self Edit Transcribed Date: 11/17/2024 13:34 ET Narrative 11/17/2024 1:49 PM EDT History: Follow-up lung opacities noted on PET/CT. Personal history of squamous cell carcinoma of the face, status post radiation therapy. Comparison: 08/18/24, 04/14/24, 12/22/23, PET/CT 09/23/23 Technique: Helical volumetric imaging of the thorax was performed during the uneventful intravenous administration of 90 cc Isovue-370. DLP: 523.77 mGy/cm GE Advanced Numicro Systemspeed VCT Iterative reconstruction technique Findings: The trachea and central bronchial tree remain patent. A right apical juxtapleural groundglass opacity is without significant change from the most recent study and less conspicuous compared to the earlier exams. There is juxtapleural solid opacity associated with this lesion which is without significant change. Additional small nodular right apical groundglass opacities described on the PET/CT are less prominent and/or resolved. Lung attenuation is now markedly heterogeneous, with extensive areas of groundglass opacity seen bilaterally in the upper and lower lungs, appearing new from the previous exams. This is most likely infectious/inflammatory. No suspicious developing pulmonary nodule is seen. No pleural effusions are identified. A small pericardial effusion versus focal pericardial thickening is noted, measuring 12 mm in thickness anterior to the right ventricle compared to 7 mm previously. There is mild multichamber cardiomegaly, with three-vessel coronary artery calcification, unchanged. No developing thoracic lymphadenopathy is seen. A small portion of the upper abdomen included on the lowest images through the thorax is without significant abnormality. An old, healed right rib fracture is noted. Procedure Note Jailyn Ballesteros MD - 11/17/2024 History: Follow-up lung opacities noted on PET/CT. Personal history ofsquamous cell carcinoma of the face, status post radiation therapy. Comparison: 08/18/24, 04/14/24, 12/22/23, PET/CT 09/23/23 Technique: Helical volumetric imaging of the thorax was performed duringthe uneventful intravenous administration of 90 cc Isovue-370. DLP: 523.77 mGy/cm Oxley's Extrapeed VCT Iterative reconstruction technique Findings: The trachea and central bronchial tree remain patent. A right apicaljuxtapleural groundglass opacity is without significant change from themost recent study and less conspicuous compared to the earlier exams.There is juxtapleural solid opacity associated with this lesion which iswithout significant change. Additional small nodular right apicalgroundglass opacities described on the PET/CT are less prominent and/orresolved. Lung attenuation is now markedly heterogeneous, with extensive areas ofgroundglass opacity seen bilaterally in the upper and lower lungs,appearing new from the previous exams. This is most likelyinfectious/inflammatory. No suspicious developing pulmonary nodule isseen. No pleural effusions are identified. A small pericardial effusion versusfocal pericardial thickening is noted, measuring 12 mm in thicknessanterior to the right ventricle compared to 7 mm previously. There is mild multichamber cardiomegaly, with three-vessel coronary arterycalcification, unchanged. No developing thoracic lymphadenopathy isseen. A small portion of the upper abdomen included on the lowest images throughthe thorax is without significant abnormality. An old, healed right rib fracture is noted. IMPRESSION: Impression: 1. Stable faint juxtapleural right apical groundglass/solid opacity since08/18/24, with decrease in prominence since 09/23/23. 2. Multiple new bilateral groundglass opacities, most likelyinfectious/inflammatory in nature. No suspicious developing pulmonarynodule. 3. No developing thoracic lymphadenopathy. Telerad PA ([id number]) -------- FINAL REPORT -------- Dictated By: Jailyn Ballesteros Dictated Date: 11/17/2024 13:34 ET Assigned Physician: Jailyn Ballesteros Reviewed and Electronically Signed By: Jailyn Ballesteros Signed Date: 11/17/2024 13:49 ET Workstation ID: [id number] Transcribed By: Self Edit Transcribed Date: 11/17/2024 13:34 ET Mimi Dawson NP IMG CT PROCEDURES Fin al Result * (ABNORMAL) Lactate dehydrogenase (11/09/2024 11:20 AM EST) Only the most recent of6 resultswithin the time period is included. LDH 1,218(H) 120 - 246 unit/L LAB CHEMISTRY METHOD 11/09/2024 2:12 PM EST [facility] Blood Venous blood specimen / Unknown Venipuncture / Unknown 11/09/2024 11:20 AM EST 11/09/2024 12:19 PM EST Lamar Cotton MD LAB BLOOD ORDERABLES Final R esult Performing Organization Address City/[facility]/ZIP Co de Phone Number [facility] [address] [place] [address], [place] [phone] * (ABNORMAL) Beta 2 microglobulin, serum (11/09/2024 11:20 AM EST) Only the most recent of2 resultswithin the time period is included. [facility] Beta-2 Microglobulin 2.9(H) 0.7 - 1.8 mg/L LAB CHEMISTRY METHOD 11/09/2024 2:12 PM [facility] Blood Venous blood specimen / Unknown Venipuncture / Unknown 11/09/2024 11:20 AM EST 11/09/2024 12:19 PM EST Lamar Cotton MD LAB BLOOD ORDERABLES Final R esult Performing Organization Address City/[facility]/ZIP Co de Phone Number [facility] [address] [place] [address], [place] [phone] * (ABNORMAL) Reticulocyte count (10/20/2024 9:55 AM EST) [facility] Retic Ct Abs 0.200(H) 0.030 - 0.090 M/mcL LAB HEMETOLOGY METHOD 10/20/2024 10:12 AM [facility] Retic Ct Pct 12.8(H) 0.7 - 1.7 % LAB HEMETOLOGY METHOD 10/20/2024 10:12 AM [facility] Immature Retic Fract 36.4(H) 2.3 - 15.9 % LAB HEMETOLOGY METHOD 10/20/2024 10:12 AM [facility] Reticulocyte Hemoglobin 32.9 >29.0 pcg LAB HEMETOLOGY METHOD 10/20/2024 10:12 AM [facility] Blood Venous blood specimen / Unknown Venipuncture / Unknown 10/20/2024 9:55 AM EST 10/20/2024 10:02 AM EST Lamar Cotton MD LAB BLOOD ORDERABLES Final R esult Performing Organization Address City/[facility]/ZIP Co de Phone Number [facility] [address] [place] [address], [place] [phone] * Direct antiglobulin test (10/20/2024 9:54 AM EST) [facility] BETTINA Polyspecific Negative 10/20/19 6:35 PM [facility] Blood Venous blood specimen / Unknown Venipuncture / Unknown 10/20/2024 9:54 AM EST 10/20/2024 4:43 PM EST Lamar Cotton MD LAB BLOOD BANK TEST ORDERABL ES Final Result Performing Organization Address [facility]/ZIP Co de Phone Number [facility] [address] [place] [address], [place] [phone] * (ABNORMAL) Hepatic function panel (10/19/2024 3:43 PM EST) [facility] Total Protein 6.6 6.0 - 8.0 g/dL LAB CHEMISTRY METHOD 10/19/2024 5:22 PM [facility] Albumin 3.5 3.2 - 5.0 g/dL LAB CHEMISTRY METHOD 10/19/2024 5:22 PM [facility] Total Bilirubin 1.2 0.0 - 1.4 mg/dL LAB CHEMISTRY METHOD 10/19/2024 5:22 PM [facility] Bilirubin, Direct 0.4(H) 0.0 - 0.3 mg/dL LAB CHEMISTRY METHOD 10/19/2024 5:22 PM [facility] Bilirubin, Indirect 0.8 0.0 - 1.1 mg/dL LAB CHEMISTRY METHOD 10/19/2024 5:22 PM EST [facility] ALT (SGPT) 201(H) 10 - 60 unit/L LAB CHEMISTRY METHOD 10/19/2024 5:22 PM EST [facility] Comment:Results verified by repeat testing AST (SGOT) 114(H) 10 - 42 unit/L LAB CHEMISTRY METHOD 10/19/2024 5:22 PM EST [facility] Alkaline Phosphatase 388(H) 42 - 121 unit/L LAB CHEMISTRY METHOD 10/19/2024 5:22 PM [facility] Blood Venous blood specimen / Unknown Venipuncture / Unknown 10/19/2024 3:43 PM EST 10/19/2024 4:33 PM EST Babak Carrasquillo MD LAB BLOOD ORDERABLES Final Resu lt Performing Organization Address City/[facility]/ZIP Co de Phone Number [facility] [address] [place] [address], [place] [phone] * (ABNORMAL) Vitamin B12 and folate (10/19/2024 3:25 PM EST) Pathologist [facility] Vitamin B-12 >2,000(H) 250 - 900 pcg/mL LAB CHEMISTRY METHOD 10/19/2024 7:19 PM EST [facility] Folate >20.0(H) 2.8 - 17.0 ng/ml LAB CHEMISTRY METHOD 10/19/2024 7:19 PM EST [facility] Blood Venous blood specimen / Unknown Venipuncture / Unknown 10/19/2024 3:25 PM EST 10/19/2024 4:33 PM EST Lamar Cotton MD LAB BLOOD ORDERABLES Final R esult [facility] [address] [place] [address], [place] [phone] * (ABNORMAL) Iron and TIBC (10/19/2024 3:25 PM EST) [facility] Iron 99 50 - 160 mcg/dL LAB CHEMISTRY METHOD 10/19/2024 7:39 PM EST [facility] TIBC 222(L) 250 - 450 mcg/dL LAB CHEMISTRY METHOD 10/19/2024 7:39 PM EST [facility] Iron Saturation 45 20 - 50 % LAB CHEMISTRY METHOD 10/19/2024 7:39 PM EST [facility] Blood Venous blood specimen / Unknown Venipuncture / Unknown 10/19/2024 3:25 PM EST 10/19/2024 4:33 PM EST us Lamar Cotton MD LAB BLOOD ORDERABLES Final R esult Performing Organization Address City/[facility]/ZIP Co de Phone Number [facility] [address] [place] [address], [place] [phone] * (ABNORMAL) Ferritin (10/19/2024 3:25 PM EST) [facility] Ferritin 1,309(H) 26 - 388 ng/mL LAB CHEMISTRY METHOD 10/19/2024 7:19 PM EST [facility] Blood Venous blood specimen / Unknown Venipuncture / Unknown 10/19/2024 3:25 PM EST 10/19/2024 4:33 PM EST Lamar Cotton MD LAB BLOOD ORDERABLES Final R esult [facility] [address] [place] [address], [place] [phone] * Bilirubin, direct (09/26/2024 6:59 AM EST) Only the most recent of3 resultswithin the time period is included. [facility] Bilirubin, Direct 0.2 0.0 - 0.2 mg/dL LAB CHEMISTRY METHOD 09/26/2024 7:54 AM EST [facility] Blood Venous blood specimen / Unknown Venipuncture / Unknown 09/26/2024 6:59 AM EST 09/26/2024 7:17 AM EST Olivia GOLDSTEIN LAB BLOOD ORDERABLES Fin al Result [facility] [address] [place] [address], [place] [phone] * Activated partial thromboplastin time (09/26/2024 6:58 AM EST) Only the most recent of4 resultswithin the time period is included. aPTT 31.1 25.0 - 37.0 sec LAB COAGULATION METHOD 09/26/2024 7:41 AM EST [facility] Blood Venous blood specimen / Unknown Venipuncture / Unknown 09/26/2024 6:58 AM EST 09/26/2024 7:16 AM EST Olivia GOLDSTEIN LAB BLOOD ORDERABLES Fin al Result Performing Organization Address City/[facility]/ZIP Co de Phone Number [facility] [address] [place] [address], [place] [phone] * Prothrombin time with INR (09/26/2024 6:58 AM EST) Only the most recent of4 resultswithin the time period is included. Protime 12.7 10.5 - 13.3 sec LAB COAGULATION METHOD 09/26/2024 7:41 AM EST [facility] INR 1.1 0.8 - 1.1 LAB COAGULATION METHOD 09/26/2024 7:41 AM EST [facility] Blood Venous blood specimen / Unknown Venipuncture / Unknown 09/26/2024 6:58 AM EST 09/26/2024 7:16 AM EST Narrative [facility] - 09/26/2024 7:41 AM EST Std. Therapy ?2.0-3.0 INR High Dose Therapy 3.0-4.5 INR Ranges may vary depending on clinical indications and protocol. Olivia GOLDSTEIN LAB BLOOD ORDERABLES Fin al Result Performing Organization Address City/[facility]/ZIP Co de Phone Number [facility] [address] [place] [address], [place] [phone] * (ABNORMAL) Fibrinogen (09/26/2024 6:58 AM EST) Only the most recent of4 resultswithin the time period is included. Fibrinogen 671(H) 145 - 415 mg/dL LAB COAGULATION METHOD 09/26/2024 7:41 AM EST [facility] Blood Venous blood specimen / Unknown Venipuncture / Unknown 09/26/2024 6:58 AM EST 09/26/2024 7:16 AM EST Olivia GOLDSTEIN LAB BLOOD ORDERABLES Fin al Result Performing Organization Address [facility] Co de Phone Number [facility] [address] [place] [address], [place] [phone] * (ABNORMAL) Complete blood count (09/26/2024 6:58 AM EST) Only the most recent of3 resultswithin the time period is included. WBC 9.2 4.0 - 10.5 K/mcL LAB HEMETOLOGY METHOD 09/26/2024 7:27 AM EST [facility] RBC 2.28(L) 4.70 - 6.00 M/mcL LAB HEMETOLOGY METHOD 09/26/2024 7:27 AM EST [facility] Hemoglobin 7.3(L) 13.5 - 18.0 g/dL LAB HEMETOLOGY METHOD 09/26/2024 7:27 AM EST [facility] Hematocrit 21.2(L) 40.0 - 54.0 % LAB HEMETOLOGY METHOD 09/26/2024 7:27 AM EST [facility] MCV 92.8 78.0 - 100.0 FL LAB HEMETOLOGY METHOD 09/26/2024 7:27 AM EST [facility] MCH 31.8 25.0 - 33.0 pcg LAB HEMETOLOGY METHOD 09/26/2024 7:27 AM EST [facility] [facility] MCHC 34.3 32.0 - 36.0 g/dL LAB HEMETOLOGY METHOD 09/26/2024 7:27 AM EST [facility] RDW 17.4 12.1 - 17.7 % LAB HEMETOLOGY METHOD 09/26/2024 7:27 AM EST [facility] Platelets 143(L) 150 - 450 K/mcL LAB HEMETOLOGY METHOD 09/26/2024 7:27 AM EST [facility] MPV 6.9(L) 7.4 - 11.4 FL LAB HEMETOLOGY METHOD 09/26/2024 7:27 AM EST [facility] Blood Venous blood specimen / Unknown Venipuncture / Unknown 09/26/2024 6:58 AM EST 09/26/2024 7:16 AM EST us Olivia GOLDSTEIN LAB BLOOD ORDERABLES Fin al Result [facility] [address] [place] [address], [place] [phone] * (ABNORMAL) Hemoglobin and hematocrit (09/23/2024 6:40 AM EST) Only the most recent of3 resultswithin the time period is included. Hemoglobin 7.0(LL) 13.5 - 18.0 g/dL LAB HEMETOLOGY METHOD 09/23/2024 7:36 AM EST [facility] Hematocrit 20.2(L) 40.0 - 54.0 % LAB HEMETOLOGY METHOD 09/23/2024 7:36 AM EST [facility] Blood Venous blood specimen / Unknown Venipuncture / Unknown 09/23/2024 6:40 AM EST 09/23/2024 7:00 AM EST us Babak Carrasquillo MD LAB BLOOD ORDERABLES Final Resu lt [facility] [address] [place] [address], [place] [phone] * CT Angio Pelvis wo and/or w Contrast (09/22/2024 5:16 PM EST) Anatomical Region Laterality Modality Body, Pelvis Computed Tomogra phy 09/22/2024 5:38 PM EST Impressions 09/22/2024 5:52 PM EST Limited study given hardware artifact. Increased size of right gluteal and thigh hematomas. ??No definite active bleeding. The findings were communicated to LYNDA GARCIA on 09/22/2024 5:47 PM via Epic Report reviewed and signed by : Dr. Chano Martinez on 09/22/2024 5:52 PM. Workstation Name - [id number] -------- FINAL REPORT -------- Dictated By: Chano Martinez Dictated Date: 09/22/2024 17:38 ET Assigned Physician: Chano Martinez Reviewed and Electronically Signed By: Chano Martinez Signed Date: 09/22/2024 17:52 ET Workstation ID: [id number] Transcribed By: Self Edit Transcribed Date: 09/22/2024 17:38 ET Narrative 09/22/2024 5:[address] ANGIO PELVIS WO AND/OR W CONTRAST HISTORY:74 years Male ??suspected post-operative bleeding after right hip surgery COMPARISON: 09/20/24 TECHNIQUE: CT pelvis was performed with 85 ml of ISOVUE. Multiplanar reformats were reviewed. Dose reduction techniques were used including automated exposure control and adjustment of mA and/or KV according to patient size. FINDINGS: Streak artifact from orthopedic hardware limits evaluation. Bilateral total hip arthroplasties. Multiple distended bowel loops, incompletely imaged. Extensive subcutaneous edema most notable overlying the right head and visualized right lower extremity. Right gluteal hematoma is increased in size measuring approximately 11.6 x 7.2 cm compared to approximately 5.8 x 5.5 cm. ??Hematoma within the right lateral thigh musculature measures approximately 7.1 x 3.9 cm compared to 4.9 x 3.5 cm. ??No definite active bleeding. Bilateral hydroceles larger on the right again noted. Procedure Note Chano Martinez MD - 09/22/2024 CT ANGIO PELVIS WO AND/OR W CONTRAST HISTORY:74 years Male suspected post-operative bleeding after right hipsurgery COMPARISON: 09/20/24 TECHNIQUE: CT pelvis was performed with 85 ml of ISOVUE. Multiplanarreformats were reviewed. Dose reduction techniques were used includingautomated exposure control and adjustment of mA and/or KV according topatient size. FINDINGS: Streak artifact from orthopedic hardware limits evaluation. Bilateral total hip arthroplasties. Multiple distended bowel loops, incompletely imaged. Extensive subcutaneous edema most notable overlying the right head andvisualized right lower extremity. Right gluteal hematoma is increased in size measuring approximately 11.6 x7.2 cm compared to approximately 5.8 x 5.5 cm. Hematoma within the rightlateral thigh musculature measures approximately 7.1 x 3.9 cm compared to4.9 x 3.5 cm. No definite active bleeding. Bilateral hydroceles larger on the right again noted. IMPRESSION: Limited study given hardware artifact. Increased size of right gluteal and thigh hematomas. No definite activebleeding. The findings were communicated to LYNDA GARCIA on 09/22/2024 5:47 PM viaEpic Report reviewed and signed by : Dr. Chano Martinez on 09/22/2024 5:52 PM.Workstation Name - [id number] -------- FINAL REPORT -------- Dictated By: Chano Martinez Dictated Date: 09/22/2024 17:38 ET Assigned Physician: Chano Martinez Reviewed and Electronically Signed By: Chano Martinez Signed Date: 09/22/2024 17:52 ET Workstation ID: [id number] Transcribed By: Self Edit Transcribed Date: 09/22/2024 17:38 ET us Lynda GOLDSTEIN IMG CT PROCEDURES Final Result * Vascular US duplex lower extremity venous right (09/22/2024 12:45 PM EST) Anatomical Region Laterality Modality Vascular, Abdomen Ultrasound 09/22/2024 1:11 PM EST Impressions 09/22/2024 1:11 PM EST 1. There is no evidence for deep venous thrombosis in the right lower extremity. 2. ??Severe right calf edema. Report reviewed and signed by : Dr. Carla Robledo on 09/22/2024 1:11 PM. Workstation Name - [id number] -------- FINAL REPORT -------- Dictated By: Carla Robledo Dictated Date: 09/22/2024 13:11 ET Assigned Physician: Carla Robledo Reviewed and Electronically Signed By: Carla Robledo Signed Date: 09/22/2024 13:11 ET Workstation ID: [id number] Transcribed By: Self Edit Transcribed Date: 09/22/2024 13:11 ET Narrative 09/22/2024 1:11 PM EST ULTRASOUND OF THE RIGHT LOWER EXTREMITY CLINICAL HISTORY: LEG SWELLING, PAIN, DVT SUSPECTED significantly increased swelling over 2 days with DVT ppx on hold TECHNIQUE: Multiple ultrasound images of the right lower extremity were obtained. Color doppler flow, spectral waveform analysis obtained. COMPARISON: None. FINDINGS: The right lower extremity greater saphenous, common femoral, profunda femoral, proximal superficial femoral, middle superficial femoral, distal superficial femoral, popliteal, posterior tibial, and peroneal veins are patent. There is no evidence for an obstructing venous thrombosis. ??Severe right calf edema noted. Procedure Note Carla Robledo MD - 09/22/2024 ULTRASOUND OF THE RIGHT LOWER EXTREMITY CLINICAL HISTORY: LEG SWELLING, PAIN, DVT SUSPECTED significantly increased swelling over 2 days with DVT ppx on hold TECHNIQUE: Multiple ultrasound images of the right lower extremity wereobtained. Color doppler flow, spectral waveform analysis obtained. COMPARISON: None. FINDINGS: The right lower extremity greater saphenous, common femoral, profundafemoral, proximal superficial femoral, middle superficial femoral, distalsuperficial femoral, popliteal, posterior tibial, and peroneal veins arepatent. There is no evidence for an obstructing venous thrombosis. Severeright calf edema noted. IMPRESSION: 1. There is no evidence for deep venous thrombosis in the right lowerextremity. 2. Severe right calf edema. Report reviewed and signed by : Dr. Carla Robledo on 09/22/2024 1:11 PM.Workstation Name - [id number] -------- FINAL REPORT -------- Dictated By: Carla Robledo Dictated Date: 09/22/2024 13:11 ET Assigned Physician: Carla Robledo Reviewed and Electronically Signed By: Carla Robledo Signed Date: 09/22/2024 13:11 ET Workstation ID: [id number] Transcribed By: Self Edit Transcribed Date: 09/22/2024 13:11 ET us Olivia GOLDSTEIN CV VASCULAR PROCEDURES F inal Result * Bilirubin, total and direct (09/22/2024 11:30 AM EST) Total Bilirubin 0.8 0.3 - 1.0 mg/dL LAB CHEMISTRY METHOD 09/22/2024 12:38 PM EST [facility] Bilirubin, Direct 0.1 0.0 - 0.2 mg/dL LAB CHEMISTRY METHOD 09/22/2024 12:38 PM EST [facility] Bilirubin, Indirect 0.7 mg/dL LAB CHEMISTRY METHOD 09/22/2024 12:38 PM EST [facility] Blood Venous blood specimen / Unknown Venipuncture / Unknown 09/22/2024 11:30 AM EST 09/22/2024 11:36 AM EST us Fransisco GOLDSTEIN LAB BLOOD ORDERABLES Jennifer graff Result [facility] [address] [place] [address], [place] [phone] * Lipid panel (10/28/2022) LDL/HDL Ratio 3 <=5 Triglycerides 94 <=150 mg/dL Cholesterol 127 <=200 mg/dL HDL 44 >=40 mg/dL LDL Cholesterol 65 <=100 mg/dL Blood Venous blood specimen / Unknown [facility] Provider LAB BLOOD ORDERABLES Jennifer l Result from Last 3 Months or Most Recently Relevant to Health Maintenance Insurance MEDICARE [facility] Advance Directives * Full Code - Confirmed (Latest Code Status on File) Date Activated Date Inactivated Comments 09/14/2024 9:48 AM 09/26/2024 1:51 PM This code sta tus was ascertained in the following way: Code status discussion: per living will or healthcare instructions To update the patient's code status, place a code status order. Do not modify or discontinue any currently active code status orders. * Full Code - Confirmed Date Activated Date Inactivated Comments 09/14/2024 5:19 AM 09/14/2024 9:48 AM This code stat us was ascertained in the following way: Code status discussion: discussion with patient To update the patient's code status, place a code status order. Do not modify or discontinue any currently active code status orders. Care Teams Insurance Premium Auditor Relationship Specialty Start Date End Date Aminata Moreno MD [address] [place] [phone] PCP - General Internal Medicine 10/21/24
--- OUTSIDE RECORDS SUMMARY | 2024-12-20 16:07 | XMS_ITS | Clinical Summary ---
Author Organization [facility] Address [address] [place] [id number] Care Team Providers Care Public Health Nurse Name Role Phone Giovanna Thapa MD Unavailable Suzanna Mcgill DO Primary Care Provider [phone] Allergies Active Allergy Reactions Criticality Noted Date Comments Pollen Extract Fever High 05/21/2019 Medications Medication Sig Dispensed Refills Start Date End Date Status aspirin enteric coated (ECOTRIN LOW STRENGTH) 81 MG EC tablet Take 1 tablet (81 mg total) by mouth daily. Active Multiple Vitamins-Minerals (MULTIVITAMIN ADULTS PO) Take by mouth daily. Active amLODIPine (NORVASC) 10 MG tablet Take 1 tablet (10 mg total) by mouth daily. Active polyethylene glycol (miraLAx) 17 GM/SCOOP powder Take 17 g by mouth daily. Active bisacodyl (DULCOLAX) 5 MG EC tablet Take 1 tablet (5 mg total) by mouth daily as needed for constipation. Active fexofenadine (LILIANA) 180 MG tablet Take 1 tablet (180 mg total) by mouth daily. Administer with water only; do not administer with fruit juices. Active naproxen sodium (ALEVE) 220 mg tablet Take 1 tablet (220 mg total) by mouth. Active Melatonin 1 MG Chew Tab Chew. A ctive Probiotic Product (Probiotic-10) Chew Tab Chew 4 tablets. Active atorvastatin (LIPITOR) 40 MG tabletIndications:Pure hypercholesterolemia TAKE 1 TABLET BY MOUTH EVERY DAY 90 tablet 3 4 Active carvedilol (COREG) 6.25 MG tabletIndications:Hyperte nsion, unspecified type TAKE 1 TABLET BY MOUTH TWICE A DAY WITH MEALS 180 tablet 3 4 Active losartan (COZAAR) 100 MG tabletIndications:Primary hypertension TAKE 1 TABLET BY MOUTH EVERY DAY 90 tablet 3 4 Active traMADol (ULTRAM) 50 MG tablet Take 1 tablet (50 mg total) by mouth 4 times daily (every 6 hours) as needed. 4 Active senna-docusate (SENNA-S) 8.6-50 MG Take 1 tablet by mouth daily. Active methocarbamol (ROBAXIN) 750 MG tablet Take 1 tablet (750 mg total) by mouth as needed. 4 Active Cobalamin Combinations (Vitamin Q83-Dinal Acid) 500-400 MCG Tab Take by mouth daily. 4 Active acetaminophen (TYLENOL) 500 MG tablet Take 1 tablet (500 mg total) by mouth 4 times daily (every 6 hours) as needed. Active Active Problems Problem Noted Date Diagnosed Date Aneurysm 10/04/2022 Head and neck cancer 09/03/2022 Infrarenal abdominal aortic aneurysm (AAA) witho ut rupture 08/27/2022 Overview (10/04/2022): PET/CT TUMOR IMAGING SKULL BASE TO MID-THIGH ? ? 08/26/2022 Moderate calcified and sclerosis of the aortoiliac tree with fusiform infrarenal aneurysm measuring 3.1 cm Hyponatremia 11/12/2021 CLL (chronic lymphocytic leukemia) 01/13/2019 Overview (09/05/2021): Dr Cotton CLL (chronic lymphocytic leukemia) 01/13/2019 Overview (10/04/2022): Dr Cotton Dr Cotton Squamous cell carcinoma in situ 05/13/2018 Pure hypercholesterolemia 12/05/2017 History of actinic keratoses 11/12/2017 Overview (09/05/2021): Actinic keratoses Delayed ejaculation 11/16/2015 Overview (09/05/2021): Saw urology Enlarged testicle 11/16/2015 Overview (09/05/2021): Neg work up Right shoulder pain 11/16/2015 S/P bilateral hip replacements 11/16/2015 Varicose veins 11/16/2015 Enlarged testicle 11/16/2015 03/27/2023 Overview (03/27/2023): Neg work up Neg work up Coronary artery disease invo lving [place] coronary artery of [place] heart without angina pectoris 09/13/2015 Overview (09/05/2021): Stenting x 2 in [address] Thapa in [place], [place] Essential hypertension 09/13/2015 Hyperlipidemia 09/13/2015 Primary hypertension 09/13/2015 Coronary artery disease invo lving [place] coronary artery of [place] heart without angina pectoris 09/13/2015 03/27/2023 Overview (03/27/2023): Stenting x 2 in [address] Thapa in [place] Stenting x [address] in [address] Thapa in [place] Other hyperlipidemia 09/13/2015 03/27/2023 Immunizations Name Administration Dates Next Due Covid-19 mRNA Vaccine - Moderna 0.25 mL Booster 01/09/2022 Social History Tobacco Use Types Packs/Day Years Used Date Smoking Tobacco: Never Smokeless Tobacco: Never Tobacco Cessation:Counseling Given: Yes Alcohol Use Standard Drinks/Week Comments Yes 0 (1 standard drink = 0.6 oz pur e alcohol) Occasional Sex and Gender Information Value Date Recorded Sex Assigned at Male 09/27/2022 7:35 AM EST Gender Identity Male 09/27/2022 7:35 AM EST Sexual Orientation Heterosexual (straight) 09/27 7:35 AM EST Last Filed Vital Signs Vital Sign Reading Time Taken Comments Blood Pressure 142/76 08/26/2024 1:10 PM EST Pulse 58 08/26/2024 1:10 PM EST Temperature - - Respiratory Rate 18 10/04/2022 9:02 AM EST Oxygen Saturation 99% 08/26/2024 1:10 PM EST Inhaled Oxygen Concentration - - Weight 83.9 kg (185 lb) 08/26/2024 1:10 PM EST Height 182.9 cm (6') 08/26/2024 1:10 PM EST Body Mass Index 25.09 08/26/2024 1:10 PM EST Plan of Treatment Upcoming Encounters Date Type Department Care Team (Late st Contact Info) Description 02/24/2025 10:00 AM EDT Office Visit [facility] [address] [place] [phone] Giovanna Thapa MD [address] [place] [id number] Health Maintenance Due Date Last Done Comments Hepatitis C Virus Screening 1950 Chronic Controlled Substance Toxicology Screening 1968 Chronic Controlled Substance User PDMP Review 1968 Controlled Substance Agreement Initial and Annual Review 1968 DTaP/Tdap/Td Vaccines (1 - Tdap) 1969 Pneumococcal Vaccines 50+ (1 of 2 - PCV) 1969 Zoster (Shingles) Vaccine (1 of 2) 1969 Colonoscopy 1995 RSV Vaccine 60 years and older and Patients (1 - Risk 60-74 years 1-dose series) 2010 COVID-19 Vaccine (3 - Mixed Product risk series) 09/03/2023 08/06/2023, 01/09/2022, 07/11/2021 Influenza Vaccine Completed 07/01/2024, , 08/06/2023, Additional history exists Hepatitis B Vaccines Aged Out No long er eligible based on patient's age to complete this topic Care Teams Public Health Nurse Relationship Specialty Start Date End Date Suzanna Mcgill DO [facility] [place] [address] PCP - General Family Medicine 03/27/23 Giovanna Thapa MD [address] [place] [id number] Primary [place] Cardiovascular Disease 08/29/21
--- OUTSIDE RECORDS SUMMARY | 2024-12-20 16:07 | XMS_ITS | Clinical Summary ---
Author Organization [facility] Address [address] [place] [address] Care Team Providers Care Medical Chemist Name Role Phone Betsy Mcgillmaverick Primary Care Provider [phone] Allergies Active Allergy Reactions Criticality Noted Date Comments Pollen Extracts Nasal congestion 05/21/2019 Medications aspirin 81 mg EC tablet Take 81 mg by mouth once a day. Active atorvastatin (LIPITOR) 40 mg tablet Take 40 mg by mouth once a day. Active carvediloL (COREG) 6.25 mg tablet Take 6.25 mg by mouth 2 times a day with meals. Active docusate sodium (COLACE) 100 mg capsule Take 100 mg by mouth daily as needed for constipation . Active fexofenadine (LILIANA) 180 mg tablet Take 180 mg by mouth once a day. Active LACTOBACILLUS ACIDOPHILUS ORAL Take 1 capsule by mouth daily. Active multivitamin (THERAGRAN) tablet Take 1 tablet by mouth once a day. Active senna (SENOKOT) 8.6 mg tablet Take 1 tablet by mouth once a day. Active polyethylene glycol 3350 (MIRALAX) 17 gram packet Take 17 g by mouth. Mix powder in 4 to 8 oz of water, juice, coffee, or tea prior to administrati on. Active mv-mn/C/glutamin /lysin/xrtp096 (AIRBORNE, ASCORBATE SODIUM, ORAL) Take by mouth. Active naproxen sodium (ALEVE) 220 mg tablet Take 220 mg by mouth 2 times a day with meals. Active amLODIPine (NORVASC) 10 mg tablet Take 0.5 tablets (5 mg total) by mouth once a day. 09/11/2022 Active losartan (COZAAR) 100 mg tablet Take 0.5 tablets (50 mg total) by mouth once a day. 0 09/11/2022 Active oxyCODONE IR (ROXICODONE) 5 mg tablet Take 1 tablet (5 mg total) by mouth every 6 hours as needed for pain. Max Daily Amount: 20 mg 10 tablet 09/11/2022 Active Active Problems Problem Noted Date Diagnosed [...] veins 11/16/2015 Coronary artery disease invo lving [place] coronary artery of [place] heart without angina pectoris 09/13/2015 Overview (08/26/2022): Stenting x 2 in [address] Thapa in [place], [place] Stenting x 2 in 2004. Follows with Dr[address] Thapa in [place], [place] Hyperlipidemia 09/13/2015 Primary hypertension 09/13/2015 Immunizations Immunization Administration Dates Next Due Hepatitis A and Hepatitis B Vaccine /04/2014,01/14/2014,12/08/2013,10/09 Influenza, High Dose Seasona l, Preservative Free 06/26/2021,06/02/2019,05/22/2017,06/21 Influenza, High Dose Seasona l, Quadrivalent PF 06/27/2022 Influenza, Injectable, Quadr ivalent Preservative Free 07/11/2021,05/24/2020 Influenza, Trivalent, Adjuvanted, PF 05/21/2018 Influenza, Trivalent, MDV, Injectable 06/09/2014 ,06/15/2013,07/01/2011 Influenza, Unspecified 05/22/2017 Pneumococcal Conjugate Vacci ne, 13 Valent 11/16/2015 Pneumococcal Polysaccharide Vaccine, 23 Valent 07/06/2019,04/02/2011 Tetanus Toxoid, Reduced Diph theria Toxoid, and Acellular Pertussis Vaccine, Adsorbed 11/28/2008 Tetanus and Diphtheria Toxoi ds, Adsorbed, Preservative Free (2 Lf of Tetanus Toxoid and 2 Lf of Diphtheria Toxoid) 07/06/2019,01/04/1999 Zoster Vaccine, Live 12/16/2014 Family History Medical History Relation Name Comments Emphysema Father Cancer Sister Relation Name Status Comments Father Mother Sister Social History Tobacco Use Types Packs/Day Years Used Date Smoking Tobacco: Never Smokeless Tobacco: Never Tobacco Cessation:Counseling Given: Not Answered Alcohol Use Standard Drinks/Week Comments Not Currently 0 (1 standard drink = 0.6 oz pur e alcohol) Sex and Gender Information Value Date Recorded Sex Assigned at Male 08/19/2022 3:44 PM EST Legal Sex Male 9:59 AM EST Gender Identity Male 08/19/2022 3:44 PM EST Sexual Orientation Straight 08/19/2022 3: 44 PM EST Last Filed Vital Signs Vital Sign Reading Time Taken Comments Blood Pressure 147/67 03/02/2023 6:28 AM EDT Pulse 57 03/02/2023 6:28 AM EDT Temperature 36.7 ??C (98.1 ??F) 03/02/2023 6:28 AM ED T Respiratory Rate 18 03/02/2023 6:28 AM EDT Oxygen Saturation 98% 03/02/2023 6:28 AM EDT Inhaled Oxygen Concentration - - Weight 93 kg (205 lb) 03/26/2023 11:29 AM EDT Height 186 cm (6' 1.23 ) 03/26/2023 11:29 AM EDT Body Mass Index 26.88 03/26/2023 11:29 AM EDT Plan of Treatment Health Maintenance Due Date Last Done Comments Cologuard 1950 Colon Cancer Screening 1950 Colonoscopy 1950 FOBT / Fit Test 1950 Hepatitis C Screening 1950 Sigmoidoscopy 1950 Zoster Vaccines (1 of 2) 02/10/2015 12/16/2014 COVID-19 Vaccine (2023-2 5 season) 2024 08/06/2023, 08/06/2023, 06/27/2022, Additional history exists Basic Metabolic Panel 07/18/2024 07/18/2023 , 07/17/2023, 03/01/2023, Additional history exists Alcohol/Substance Use Screening 09/08/2024 Depression Screening and Follow-Up 09/08/2024 Health Care Proxy Review 09/08/2024 Social Drivers of Health Ally ual Screening 09/08/2024 Influenza Vaccine (Season Ended) 2025 08/06/2023, 06/27/2022, 07/11/2021, Additional history exists DTaP,Tdap,and Td Vaccines (3 - Td or Tdap) 07/06/2029 07/06/2019, 11/28/2008, 01/04/1999 Hepatitis B Vaccines Completed 03/15/2014, 01/14/2014, 12/08/2013, Additional history exists Pneumococcal Vaccine: 50+ Years Completed 07/06/2019, 11/16/2015, 04/02/2011 RSV Vaccine (60+ years old a nd patients) Completed 09/10/2023 Medical Devices Implanted Type Area Centrifugal Operator Device Identifier Shelf Expiration Date Model / Serial / Lot Drill Bit Twist [employer] Standard Stainless Steel Sterile [id number] - [id number] Implanted:Qty: 1 on 09/03/2022 by Ashu Mason MD at [facility] [employer] [id number] / / Procedures * Due to [facility] law, this organization might not be sharing negative HIV tests. Procedure Name Priority Date/Time Associated Diagnosis Comments BASIC METABOLIC PANEL Routine 03/01/2023 3:38 AM EDT from Last 3 Months or Most Recently Relevant to Health Maintenance Results * Due to [place] [employer] law, this organization might not be sharing negative HIV tests. * (ABNORMAL) Basic Metabolic Panel (03/01/2023 3:38 AM EDT) NA 132(L) 135 - 145 mmol/L 03/01/2023 4:37 AM EDT [facility] K 4.5 3.5 - 5.3 mmol/L 03/01/2023 4:37 AM EDT [facility] Cl 99 97 - 110 mmol/L 03/01/2023 4:37 AM EDT [facility] CO2 26 24 - 32 mmol/L 03/01/2023 4:37 AM EDT [facility] BUN 9 7 - 23 mg/dL 03/01/2023 4:37 AM EDT [facility] Creatinine 0.60 0.60 - 1.30 mg/dL 03/01/2023 4:37 AM EDT [facility] Glucose 149(H) 70 - 99 mg/dL 03/01/2023 4:37 AM EDT [facility] Calcium 8.7 8.7 - 10.7 mg/dL 03/01/2023 4:37 AM EDT [facility] Anion Gap 7 5 - 15 03/01/2023 4:37 AM EDT [facility] eGFR >90 >=60 mL/min/1. 73m2 03/01/2023 4:37 AM EDT [facility] Comment:The estimated glomer ular filtration rate (eGFR) is calculated using a new formula developed by the NKF-ASN task force to eliminate race-based correction factors. The new formula uses serum/plasma creatinine, age, and gender to determine eGFR. A value below 60mls/min might indicate kidney disease and will be flagged. For additional information, see Renetta et al, Am J Kidney Dis. 2021;79(2):268- 288, A Unifying Approach for GFR estimation: Recommendations of the NKF-ASN Task Force on Reassessing the Inclusion of Race in Diagnosing Kidney Disease . Blood Structure of peripheral vein / Unknown Venipuncture / Unknown 03/01/2023 3:38 AM EDT 03/01/2023 3:59 AM EDT us Ashu Mason MD LAB BLOOD ORDERABLES Final R esult [facility] [address] [place] [id number], from Last 3 Months or Most Recently Relevant to Health Maintenance Insurance [facility] MCR REPLACE AARP Advance Directives Documents on File Type Date Recorded Patient Washing Machine Operator Expl anation Health Care Proxy 08/26/2022 12:51 PM PROXY SCANNED IN * Full Code (Latest Code Status on File) Date Activated Date Inactivated Comments 02/28/2023 3:05 PM 03/02/2023 3:14 PM * Full Code Date Activated Date Inactivated Comments 02/28/2023 11:37 AM 02/28/2023 3:05 PM * Full Code Date Activated Date Inactivated Comments 09/03/2022 4:22 PM 09/11/2022 1:23 PM * Full Code Date Activated Date Inactivated Comments 09/03/2022 6:07 AM 09/03/2022 4:22 PM Care Teams Medical Chemist Relationship Specialty Start Date End Date Suzanna Mcgill [address] [place] [address] PCP - General 08/14/22
--- OUTSIDE RECORDS SUMMARY | 2024-12-20 16:07 | XMS_ITS ---
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 Past Plans ONCOLOGY TREATMENT Plan Name Start Date Discontinue Date Treatment Medications Discontinue Reason Plan Provider Cycles [facility] CISPLATIN 100MG/M2 (FOR USE WITH CONCURRENT RADIATION) (3 HRS) 04/29/20 23 06/25/2024 albuterol (PROVENTIL)Aprepitant (EMEND)CISplatin (PLATINOL) chemo infusion No mannitolcustom IV infusion builderdexamethasone (DECADRON)diphenhydrAM INE (BENADRYL)EPINEPHrinef amotidine (PF) (PEPCID)fosaprepitant IV Piggybackhydrocortison e (SOLU-CORTEF) IVmeperidine (DEMEROL) 25 MG/MLondansetron (ZOFRAN)palonosetron (ALOXI)prochlorperazin e (COMPAZINE)Saline Flush 0.9 %sodium chloride (NS) 0.9 %sodium chloride 0.9% bolus (NS) Therapy Complete Lamar Cotton MD 2 of 3 cycles started Radiation Treatments * No radiation treatments are documented for this patient in [facility]. Treatments may have been administered in another system.
--- OUTSIDE RECORDS SUMMARY | 2024-12-20 16:07 | XMS_ITS | Referral Summary ---
Author Organization [facility] Address [address] [place] [address] Care Team Providers Care Termite Control Representative Name Role Phone Suzanna Mcgill Primary Care Provider [phone] Allergies Active Allergy Reactions Criticality Noted Date [...] tea prior to administrati on. Active mv-mn/C/glutamin /lysin/cmqv046 (AIRBORNE, ASCORBATE SODIUM, ORAL) Take by mouth. [...] veins 11/16/2015 Coronary artery disease invo lving [place] coronary artery of [place] heart without angina pectoris 09/13/2015 Overview (08/26/2022): Stenting x 2 in [address] Follow[address] Thapa in [place], [place] Stenting x 2 in 2004. Follows with Dr. Thapa in [place], [place] Hyperlipidemia 09/13/2015 Primary hypertension 09/13/2015 Immunizations Immunization Administration Dates Next Due Hepatitis A and Hepatitis B Vaccine 07/0 04/2014,01/14/2014,12/08/2013,10/09 Influenza, High Dose Seasona l, Preservative Free [...] Diphtheria Toxoid) 07/06/2019,01/04/1999 Zoster Vaccine, Live 12/16/2014 Social History Tobacco Use Types Packs/Day Years [...] 03/26/2023 11:29 AM EDT Plan of Treatment Not on file Medical Devices Implanted Type Area Bee Robber Device Identifier Shelf Expiration Date Model / Serial / Lot Drill Bit Twist [employer] Standard Stainless Steel Sterile [id number] - [id number] Implanted:Qty: 1 on 09/03/2022 by Ashu Mason MD at [facility] [employer] [id number] / / Procedures * Due to [facility] law, this organization might not be sharing negative HIV tests. Procedure Name Priority Date/Time Associated Diagnosis Comments BASIC METABOLIC PANEL Routine 03/01/2023 3:38 AM EDT from Last 3 Months or Most Recently Relevant to Health Maintenance Results * Due to [place] [employer] law, this organization might not be sharing negative HIV tests. * (ABNORMAL) Basic Metabolic Panel (03/01/2023 3:38 AM EDT) NA 132(L) 135 - 145 mmol/L 03/01/2023 4:37 AM EDT [facility] K 4.5 3.5 - 5.3 mmol/L 03/01/2023 4:37 AM EDT [facility] Cl 99 97 - 110 mmol/L 03/01/2023 4:37 AM EDT [facility] CO2 26 24 - 32 mmol/L 03/01/2023 4:37 AM EDT [facility] BUN 9 7 - 23 mg/dL 03/01/2023 4:37 AM EDT [facility] Creatinine 0.60 0.60 - 1.30 mg/dL 03/01/2023 4:37 AM EDT [facility] Glucose 149(H) 70 - 99 mg/dL 03/01/2023 4:37 AM EDT [facility] Calcium 8.7 8.7 - 10.7 mg/dL 03/01/2023 4:37 AM EDT [facility] Anion Gap 7 5 - 15 03/01/2023 4:37 AM EDT [facility] eGFR >90 >=60 mL/min/1. 73m2 03/01/2023 4:37 AM EDT [facility] Comment:The estimated glomer ular filtration rate (eGFR) is calculated using a new formula developed by the NKF-ASN task force to eliminate race-based correction factors. The new formula uses serum/plasma creatinine, age, and gender to determine eGFR. A value below 60mls/min might indicate kidney disease and will be flagged. For additional information, see Jackson et al, Am J Kidney Dis. 2021;79(2):268- 288, A Unifying Approach for GFR estimation: Recommendations of the NKF-ASN Task Force on Reassessing the Inclusion of Race in Diagnosing Kidney Disease . Blood Structure of peripheral vein / Unknown Venipuncture / Unknown 03/01/2023 3:38 AM EDT 03/01/2023 3:59 AM EDT us Ashu Mason MD LAB BLOOD ORDERABLES Final R esult [facility] [address] [place] [address], [place] from Last 3 Months or Most Recently Relevant to Health Maintenance Insurance [facility] MCR REPLACE AARP Advance Directives Documents on File Type Date Recorded Patient Venereal Disease Control Head [facility] Care Proxy 08/26/2022 12:51 PM PROXY SCANNED [...] 6:07 AM 09/03/2022 4:22 PM Care Teams Termite Control Representative Relationship Specialty Start Date End Date Suzanna Mcgill [address] [place] [address] PCP - General 08/14/22
--- OUTSIDE RECORDS SUMMARY | 2024-12-20 16:07 | XMS_ITS | Encounter Summary ---
Author Organization [facility] Address [address] [place] [address] Care Team Providers Care Mushroom Growing Supervisor Name Role Phone Ananda Whiting MD Primary Care Provider Encounter Details Date Type Department Care Team Description 05/07/[address] [facility] Oncology Services [address] [place] [address] Cleo Campbell, [facility] Social History Tobacco Use Types Packs/Day Years Used Date Smoking Tobacco: Never Smokeless Tobacco: Never Alcohol Use Standard Drinks/Week Comments Yes 0 (1 standard drink = 0.6 oz pur e alcohol) occasional Sex and Gender Information Value Date Recorded Sex Assigned at Male 09/14/2019 12:02 PM EST Gender Identity Male 05/31/2024 11:44 AM EDT Sexual Orientation Not on file Job Start Date Occupation Industry Not on file Not on file Not on file COVID-19 Exposure Response Date Recorded In the last 10 days, have yo u been in contact with someone who was confirmed or suspected to have Coronavirus/COVID-19? No / Unsure 05/07/2023 8:43 AM EDT documented as of this encounter Plan of Treatment Not on file documented as of this encounter Visit Diagnoses Not on filedocumented in this encounter Care Teams Mushroom Growing Supervisor Relationship Specialty Start Date End Date Ananda Whiting MD [address] [place] [address] [address] [place] [address] PCP - General Geriatric Medicine 06/03/24 documented as of this encounter
--- OUTSIDE RECORDS SUMMARY | 2024-12-20 16:07 | XMS_ITS | Encounter Summary ---
Author Organization [facility] Address [address] [place] [address] Care Team Providers Care Digital Research Analyst Name Role Phone Aminata Moreno MD Primary Care Provider Reason for Visit * Reason Onset Date Comments Constipation 12/20/2024 Encounter Details Date Type Department Care Team (Late st Contact Info) Description 12/20/2024 Nurse Triage Adult Medicine - [place] [address] [place] [phone] Aminata Moreno MD [address] [place] [address] Constipation Social History Tobacco Use Types Packs/Day Years [...] AM EST documented as of this encounter Progress Notes * Richar Dean RN - 12/20/2024 8:47 AM EDT Reason for Disposition [1] Vomiting AND [2] contains bile (green color) Pt is nauseous but is not moving gas and only having clear liquid movement Answer Assessment - Initial Assessment Questions 1. STOOL PATTERN OR FREQUENCY: How often do you have a bowel movement (BM)? (Normal range: 3 times a day to every 3 days) When was your last BM? Last normal bowel movement was 10 days ago , pt has been having liquid stool 2. STRAINING: Do you have to strain to have a BM? no 3. ONSET: When did the constipation begin? 10 days ago 5. RECTAL PAIN: Does your rectum hurt when the stool comes out? If Yes, ask: Do you have hemorrhoids? How bad is the pain? (Scale 1-10; or mild, moderate, severe) no 6. BM COMPOSITION: Are the stools hard? Liquid 7. BLOOD ON STOOLS: Has there been any blood on the toilet tissue or on the surface of the BM? IfYes, ask: When was the last time? no 8. CHRONIC CONSTIPATION: Is this a new problem for you? If No, ask: How long have you had this problem? (days, weeks, months) Pt has had chronic constipation since hip surgery 8. CHANGES IN DIET OR HYDRATION: Have there been any recent changes in your diet? How much fluids are you drinking on a daily basis? How much have you had to drink today? yes pt has not been drinking much , but is trying to increase 9. MEDICINES: Have you been taking any new medicines? Are you taking any narcotic pain medicines? (e.g., Dilaudid, morphine, Percocet, Vicodin) No narcotics 10. LAXATIVES: Have you been using any stool softeners, laxatives, or enemas? If Yes, ask What, how often, and when was the last time? Senna and miralax 11. ACTIVITY: How much walking do you do every day? Has your activity level decreased in the past week? PT for hip replacement 12. CAUSE: What do you think is causing the constipation? Lack of movement and water 13. MEDICAL HISTORY: Do you have a history of hemorrhoids, rectal fissures, rectal surgery, or rectal abscess? no 14. OTHER SYMPTOMS: Do you have any other symptoms? (e.g., abdomen pain, bloating, fever, vomiting) Bloating lack of gas movement , abd hard 15. : Is there any chance you are ? When was your last menstrual period? no Protocols used: [id number] * Lakisha Shore - 12/20/2024 8:34 AM EDT Pt was in the office to see Dr. Moreno on 12/13 and discussed his issue with constipation. He stated that this morning the pain is bad it has been going on for about a week. None of the homeremedies or the OTC medications have helped him. Pt states he sent a [employer] message also regardingthis issue last night to Dr. Moreno Best number [phone] documented in this encounter Plan of Treatment Upcoming Encounters Date Type Department Care Team (Late st Contact Info) Description 01/10/2025 9:00 AM EDT Office Visit [facility] Hematology Oncology [address] [place] [phone] Lamar Cotton MD [address] [place] [address] 03/16/2025 11:00 AM EDT Telemedicine Infectious Disease - [place] [address] [place] [phone] Neelima Peoples MD [address] [place] [address] documented as of this encounter Visit Diagnoses Not on filedocumented in this encounter Additional Health Concerns Assessment Noted Time PHQ-9 Depression Total Score: 1 12/14/19 25 2:57 PM EDT A fall risk assessment has been complete d for the patient 12/13/2024 2:57 PM EDT documented as of this encounter Care Teams Digital Research Analyst Relationship Specialty Start Date End Date Aminata Moreno MD [address] [place] [address] PCP - General Internal Medicine 10/21/24 documented as of this encounter
--- OUTSIDE RECORDS SUMMARY | 2024-12-20 16:07 | XMS_ITS | Encounter Summary ---
Author Organization [facility] Address [address] [place] [address] Care Team Providers Care Java Tech Lead Name Role Phone Giovanna Thapa MD Unavailable Suzanna Mcgill DO Primary Care Provider [phone] Reason for Visit * Reason Comments Medication Refill Encounter Details Date Type Department Care Team (Late Contact Info) Description 07/05/2023 Refill [facility] [address] [phone] Mary Bella, EDGER AUTOMATIC [address] [place], [place] [id number] Medication Refill Social History Tobacco Use Types [...] Encounters Date Type Department Care Team (Late Contact Info) Description 02/24/2025 10:00 AM EDT Office Visit [facility] [address] [phone] Giovanna Thapa MD [address] [place] [address] [address] [place] [address] documented as of this encounter Visit Diagnoses Diagnosis Hypertension, unspecified type documented in this encounter Care Teams Java Tech Lead Relationship Specialty Start Date End Date Suzanna Mcgill DO [address] [place] [address] PCP - General Family Medicine 03/27/23 Giovanna Thapa MD [address] [place] [address] Primary Welt Pocket Machine Operator Cardiovascular Disease 08/29/21 documented as of this encounter
--- OUTSIDE RECORDS SUMMARY | 2024-12-20 16:07 | XMS_ITS | Encounter Summary ---
Author Organization [facility] Address [address] [place] [address] Care Team Providers Care Corporate Administrative Assistant Name Role Phone Suzanna Mcgill Primary Care Provider [phone] Encounter Details Date Type Department Care Team (Late st Contact Info) Description 08/21/2022 myChart Message [facility] Operating Room [address] [place] [phone] Mychart, Generic Provider [address] [place], [place] [phone] Surgical procedure with Dr. Ashu Mason on September 03, 2022 Social History Tobacco Use Types Packs/Day Years Used Date Smoking Tobacco: Never Assessed Sex and Gender Information Value Date Recorded Sex Assigned at Male 08/19/2022 3:44 PM EST Legal Sex Male 9:59 AM EST Gender Identity Male 08/19/2022 3:44 PM EST Sexual Orientation Straight 08/19/2022 3: 44 PM EST documented as of this encounter Plan of Treatment Not on file documented as of this encounter Visit Diagnoses Not on filedocumented in this encounter Care Teams Corporate Administrative Assistant Relationship Specialty Start Date End Date Suzanna Mcgill [address] [place] [address] PCP - General 08/14/22 documented as of this encounter
--- OUTSIDE RECORDS SUMMARY | 2024-12-20 16:07 | XMS_ITS | Clinical Summary ---
Author Organization [facility] Address [address] [place] [address] Care Team Providers Care [employer] Sergeant Name Role Phone Ananda Whiting MD Primary Care Provider Allergies Active Allergy Reactions Criticality Noted Date Comments Pollen Extract High 05/21/2019 Other reaction(s): Fever, Nasal congestion Seasonal 05/21/2019 Medications Medication Sig Dispensed Refills Start Date End Date Status Multiple Vitamins-Minerals (MULTIVITAMIN ADULT PO) Take by mouth daily. 0 Active atorvastatin (LIPITOR) tablet 40 mg Take 1 tablet (40 mg total) by mouth daily. 90 tablet 0 08/09/2020 Active Additional Information Patient taking differently:40 mg OralEvery Evening, Reason: Other, Reported on 05/31/2024 losartan (COZAAR) 100 MG tablet Take 1 tablet (100 mg total) by mouth daily. 90 tablet 0 02/20/2021 Active Fexofenadine HCl (LILIANA ALLERGY PO) Take by mouth daily. 0 Active Multiple Vitamins-Minerals (AIRBORNE PO) Take by mouth daily. 0 Active Melatonin 1 MG CHEW Chew by mouth every evening. 0 Active acetaminophen (TYLENOL EXTRA STRENGTH) 500 MG tablet Take 1 tablet (500 mg total) by mouth every 6 (six) hours as needed. 0 Active carvedilol (COREG) 6.25 MG tablet Take 1 tablet (6.25 mg total) by mouth 2 (two) times a day with meals. 0 03/13/2023 Active amLODIPine (NORVASC) tablet 10 mg TAKE 1 TABLET BY MOUTH EVERY DAY 90 tablet 1 05/24/2024 Active Docusate Sodium (DSS) 100 MG CAPS Take 100 mg by mouth daily as needed. 0 Active Cobalamin Combinations (Vitamin J61-Cxrae Acid) 500-400 MCG TABS Take by mouth daily. 0 12/29/2023 Active bisacodyl (DULCOLAX) 5 MG EC tablet Take 1 tablet (5 mg total) by mouth daily as needed. 0 Active ACIDOPHILUS LACTOBACILLUS PO Take 1 capsule by mouth daily. 0 Active oxyCODONE (ROXICODONE) 5 MG immediate release tablet Take 1 tablet (5 mg total) by mouth every 4 (four) hours as needed for pain. 40 tablet 0 06/12/2024 Active methocarbamol (ROBAXIN) 750 MG tablet Take 1 tablet (750 mg total) by mouth every 6 (six) hours as needed. 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 2022 Coronary artery disease invo lving [place] coronary artery of [place] heart without angina pectoris 12/05/2017 Essential hypertension 12/05/2017 Pure hypercholesterolemia 12/05/2017 Family History Medical History Relation Name Comments Emphysema Father Casey Garzon Relation Name Status Comments Father Casey Garzon Social History Tobacco Use Types Packs/Day Years Used Date Smoking Tobacco: Never Smokeless Tobacco: Never Tobacco Cessation:Counseling Given: Not Answered Alcohol Use Standard Drinks/Week Comments Not Currently 0 (1 standard drink = 0.6 oz pur e alcohol) < WEEKLY Sex and Gender Information Value Date Recorded Sex Assigned at Male 09/14/2019 12:02 PM EST Gender Identity Male 05/31/2024 11:44 AM EDT Sexual Orientation Not on file Job Start Date Occupation Industry Not on file Not on file Not on file Last Filed Vital Signs Vital Sign Reading Time Taken Comments Blood Pressure 118/59 06/16/2024 2:18 PM EDT Pulse 68 06/16/2024 2:18 PM EDT Temperature 36.6 ??C (97.9 ??F) 06/16/2024 2:18 PM ED T Respiratory Rate 17 06/16/2024 2:18 PM EDT Oxygen Saturation 99% 06/16/2024 2:18 PM EDT Inhaled Oxygen Concentration - - Weight 87.1 kg (192 lb) 06/08/2024 6:58 AM EDT Height 180.3 cm (5' 11 ) 06/08/2024 6:58 AM EDT Body Mass Index 26.78 06/08/2024 6:58 AM EDT Plan of Treatment Health Maintenance Due Date Last Done Comments Hepatitis C Screening 1950 Depression Screening 1962 Preventative Health Evaluation 1968 Shingrix-Zoster Vaccine (1 of 2) 1969 Colon Cancer Screening (Colonoscopy) 1995 RSV Adult > 60+ Yrs or (1 - Risk 60-74 years 1-dose series) 2010 Fall Risk Assessment 2015 DTap / Tdap / Td (2 - Td or Tdap) 11/28/2018 11/28/2008 COVID-19 Vaccine (2 - Pfizer risk series) 08/27/2023 08/06/2023, 01/09/2022 Influenza Vaccine (#1) 2024 , 08/06/2023, 08/06/2023, Additional history exists Hepatitis B Vaccines Completed 03/15/2014, 01/14/2014, 12/08/2013, Additional history exists Pneumococcal Vaccine Completed 07/06/2019, 11/16/2015, 04/02/2011 RSV Ped < 20 months Aged Out No longe r eligible based on patient's age to complete this topic Medical Devices Implanted Type Area Consumer Loan Specialist Device Identifier Shelf Expiration Date Model / Serial / Lot Cement Bone Surg Simplex Radiopq [facility] 5426-5-219-114 092 - [id number] Implanted:Qty: 1 on 06/08/2024 by Babak Carrasquillo [place] [facility] Right: Hip [employer] [id number] 05/08/2026 6191-1-010 / / [id number] Impl Set Bead 2.0mm Vit Brandt [facility] 8268-4-976-114 128 - [id number] Implanted:Qty: 1 on 06/08/2024 by Babak Carrasquillo MD [place] [facility] Right: Hip [employer] [id number] 01/19/2029 6704-0-520 / / [id number] Impl Set Bead 2.0mm Vit Brandt [facility] 8219-2-104-114 128 - [id number] Implanted:Qty: 1 on 06/08/2024 by Babak Carrasquillo [place] [facility] [place] [facility] Right: Hip [employer] [id number] 01/19/2029 6704-0-520 / / [id number] Impl Set Bead 2.0mm Vit Brandt [facility] 1765-3-962-114 128 - [id number] Implanted:Qty: 1 on 06/08/2024 by Babak Carrasquillo [place] [facility] [place] [facility] Right: Hip [employer] [id number] 01/09/2029 6704-0-520 / / [id number] Impl Set Bead 2.0mm Vit Brandt [facility] 0204-3-954-114 128 - [id number] Implanted:Qty: 1 on 06/08/2024 by Babak Carrasquillo [place] [facility] [place] Right: Hip [employer] [id number] 01/09/2029 6704-0-520 / / [id number] Impl Set Bead 2.0mm Vit Brandt [facility] 4464-5-269-114 128 - [id number] Implanted:Qty: 1 on 06/08/2024 by Babak Carrasquillo [place] [facility] [place] Right: Hip [employer] [id number] 10/06/2028 6704-0-520 / / [id number] Cable Slv Set D-M Bead 2.0mm Vit Med Stry-Howm 7739-5-229-114 159 - [id number] Implanted:Qty: 1 on 06/08/2024 by Babak Carrasquillo [place] [facility] [place] Right: Hip [employer] [id number] 11/17/2028 6704-0-510 / / [id number] Cable Slv Set D-M Bead 2.0mm Vit Med Stry-Howm 4686-9-007-114 159 - [id number] Implanted:Qty: 1 on 06/08/2024 by Babak Carrasquillo [place] [facility] [place] [facility] Right: Hip [employer] [id number] 11/17/2028 6704-0-510 / / [id number] Cable Slv Set D-M Bead 2.0mm Vit Med Stry-How 1320-8-491-114 159 - [id number] Implanted:Qty: 1 on 06/08/2024 by Babak Carrasquillo MD at [facility] Right: Hip [employer] [id number] 11/17/2028 6704-0-510 / / [id number] Cable Slv Set D-M Bead 2.0mm Vit Med Stry-How 9812-6-590-114 159 - [id number] Implanted:Qty: 1 on 06/08/2024 by Babak Carrasquillo MD at [facility] Right: Hip [employer] [id number] 11/17/2028 6704-0-510 / / [id number] Plate Agriculture Teacher Troch Lg 210mm Vitallium W 2 2mm Cabl Stry-How 1788-0-749-363 390 - [id number] Implanted:Qty: 1 on 06/08/2024 by Babak Carrasquillo MD at [facility] [place] [facility] Right: Hip [employer] [id number] 02/19/2028 6704-3-093 / / [id number] Cement Bone Surg Simplex Radiopq Str-How 5051-4-134-114 092 - [id number] Implanted:Qty: 1 on 06/08/2024 by Babak Carrasquillo MD at [facility] [place] [facility] Right: Hip [employer] [id number] 05/08/2026 6191-1-010 / / [id number] Explanted Type Area Consumer Loan Specialist Device Identifier Shelf Expiration Date Model / Serial / Lot Femoral Head Explanted:Qty: 1 on 06/08/2024 by Babak Carrasquillo [place] [facility] [place] [facility] Right: Hip Femoral Stem Explanted:Qty: 1 on 06/08/2024 [place] [facility] Right: Hip Acetabular Liner Explanted:Qty: 1 on 06/08/2024 [place] [facility] Right: Hip Screw Explanted:Qty: 1 on 06/08/2024 [place] [facility] [place] [facility] Right: Hip Screw Explanted:Qty: 1 on 06/08/2024 [place] [facility] Right: Hip Screw Explanted:Qty: 1 on 06/08/2024 at [facility] [place]: Hip Acetabular Shell Explanted:Qty: 1 on 06/08/2024 [place] [facility] Right: Hip Advance Directives For more information, please contact: [phone] Latest Code Status on File Code Status Date Activated Date Inactivated Comments Full Code 06/08/2024 11:00 AM 06/16/2024 11:13 PM Thi s code status was ascertained in the following way: per living will or healthcare instructions . Code Status History Code Status Date Activated Date Inactivated Comments Full Code 06/08/2024 5:18 AM 06/08/2024 11:00 AM This code status was ascertained in the following way: discussion with patient . Care Teams [employer] I Police Sergeant Relationship Specialty Start Date End Date Ananda Whiting MD [address] [place] [id number] PCP - General Geriatric Medicine 06/03/24
--- NOTE | 2024-12-20 16:37 | PC.NURSE ---
report given to preop at this time.
--- NOTE | 2024-12-20 17:06 | PM.EVENT ---
Event Note Date of Service: 12/20/24 Event Note: GI Consult-Full note dictated. History from patient and his significant other. Imp: Sigmoid volvulus. Rec: Urgent colonoscopy today for attempt at decompression. Full consent obtained for this, including risks of bleeding and perforation. We did review that if it's not successful he will need surgery tonight. We did review the high risk of recurrence which could necessitate surgery in the next 24-48 hours as well. They understood and were agreeable to this plan. I have discussed this case with Dr. Banerjee as well. Thanks Time Spent With Patient Time: Total time managing care of this patient today ____ minutes.
[2024-12-20] MEDS: Piperacillin Sodium/Tazobactam 3.375 GM in 0.9 % Sodium Chloride 50 ML IV (17:13)
--- NOTE | 2024-12-20 17:18 | HO.ANESPROP2 ---
HPI - Anesthesia Eval Consult details Narrative: for emergent colonoscopy bec of volvulus. Last ate yesterday. Has distended abd but no nausea or vomiting. PMFSH Active Problems Active Problems: All Active Problems Sigmoid volvulus (Acute) Past Medical History Medical History (Updated 12/20/24 @ 17:40 by Jose Dorman, ) Chronic anemia Basal cell carcinoma Squamous cell carcinoma of face CLL (chronic lymphocytic leukemia) HLD (hyperlipidemia) HTN (hypertension) Narrative: He had stent placed maybe 20 years ago for a small blockage. As far as he knows, his heart fxn is normal. He has no sx, but is inactive bec of his hip. After topicalization of his right nares (with lidoc/neosyneph) in SSS, I placed an 18 Fr NG tube. All that we aspirated was about 2cc of clear water. Then I removed the NGT. Family History Family history of problems with anesthesia: No Surgical History Surgical History (Updated 12/20/24 @ 17:08 by Lizbet Dennis RN) H/O neck surgery H/O heart artery stent History of total right hip replacement History of total left hip replacement History of facial surgery History of Problems with Anesthesia: No Social History Social History Are you a primary hourly caregiver to a significant other at home: No Do you presently have visiting nurse or other home services: No Patient Tobacco Use Status: Never used Tobacco Meds Allergies Allergy/AdvReac Type Severity Reaction Status Date / Time No Known Allergies Allergy Verified 12/20/24 17:03 Active Medications: Current Medications Piperacillin Sod/Tazobactam (Sod 3.375 gm/ Sodium Chloride) 50 mls @ 100 mls/hr IV ONCE ONE Stop: 12/20/24 17:32 Last Admin: 12/20/24 17:13 Dose: 100 mls/hr Home Medications ?Medication ?Instructions ?Recorded ?Confirmed ?Last Taken ?Type amlodipine 10 mg tablet 10 mg PO DAILY 12/20/24 12/20/24 12/19/24 History atorvastatin 40 mg tablet 40 mg PO DAILY 12/20/24 12/20/24 12/19/24 History carvedilol 6.25 mg tablet 6.25 mg PO BID 12/20/24 12/20/24 12/19/24 History cefadroxil 500 mg capsule 500 mg PO BID 12/20/24 12/20/24 12/19/24 History losartan 100 mg tablet 100 mg PO DAILY 12/20/24 12/20/24 12/19/24 History methocarbamol 750 mg tablet 750 mg PO Q6-8H PRN muscle spasm 12/20/24 12/20/24 Unknown History oxycodone 5 mg tablet 5 mg PO Q6-8H PRN severe pain 12/20/24 12/20/24 Unknown History tramadol 50 mg tablet 50 mg PO Q6-8H PRN severe pain 12/20/24 12/20/24 Unknown History Exam Height,Weight and Vital Signs: Height 6 ft 2 in Weight 81.3 kg Last Vital Signs Temp 97.7 F 12/20/24 14:50 Pulse 60 12/20/24 14:50 Resp 12 12/20/24 14:50 BP 150/80 H 12/20/24 14:50 Pulse Ox 97 12/20/24 14:50 O2 Del Method Room Air 12/20/24 14:50 Pertinent Lab Results Pertinent Lab Results: Laboratory Tests 12/20/24 11:00 WBC 10.9 H RBC 3.47 L Hgb 11.6 L Hct 34.0 L MCV 98.0 MCH 33.4 H MCHC 34.1 RDW 17.4 H Plt Count 122 L MPV 8.3 L Immature Gran % (Auto) Cancelled Neut % (Auto) Cancelled Lymph % (Auto) Cancelled [place] % (Auto) Cancelled Eos % (Auto) Cancelled Baso % (Auto) Cancelled Lymph # (Auto) Cancelled [place] # (Auto) Cancelled Eos # (Auto) Cancelled Baso # (Auto) Cancelled Abs Immat Gran (auto) Cancelled Absolute Neuts (auto) Cancelled Absolute Nucleated RBC 0.000 Nucleated RBC % (auto) 0.0 Neutrophils % (Manual) 20 L Band Neutrophils % 2 L Lymphocytes % (Manual) 74 H Atypical Lymphs % (Man) 3 Eosinophils % (Manual) 1 Abs Neuts (Manual) 2.4 Lymphocytes # (Manual) 8.1 H Atyp Lymphs # (Manual) 0.3 Eosinophils # (Manual) 0.1 Smudge Cells PRESENT Platelet Estimate DECREASED Plt Morphology Comment NORMAL RBC Morphology NOTED Tear Drop Cells 1+ (0-2) Smear Path Review SEE NOTE Sodium 132 L Potassium 3.7 Chloride 99 Carbon Dioxide 27 Anion Gap 10 L BUN 15 Creatinine 0.75 Estim Creat Clear Calc 99.3 Estimated GFR > 60 Random Glucose 108 Calcium 9.5 Magnesium 1.9 Total Bilirubin 0.6 Direct Bilirubin 0.3 AST 49 H ALT 30 Alkaline Phosphatase 159 H Total Protein 7.1 Albumin 4.2 Lipase 49 Influenza Type A (PCR) NEGATIVE Influenza Type B (PCR) NEGATIVE RSV RNA Qual (PCR) NEGATIVE SARS-CoV-2 RNA (RT-PCR) NEGATIVE Airway Mallampati Class: II TM Dist: <=3cm Neck ROM: Full Heart: RRR. Lungs: CTA Assessment and Plan Assessment Anesthesia Assessment: Anesthesia Plan Discussed and Chart Reviewed Final Anesthetic Review Family History of Problems with Anesthesia: No History of Problems with Anesthesia: No NPO: No (Had gastrografin oral contrast for CT about 3pm.) ASA Class: III and Emergency Final Preanesthetic Review: No Changes in Pt Med Stat, Meds/Allgs Chart Reviewed, Consent Obtained/Reviewed and Anes Risks/Benef Reviewed Patient Risk: High Procedure Risk: Intermediate Anesthetic Plan Anesthetic Plan: GA, MAC: and Agree w/ Assess. and Plan Disposition: Standard PACU
--- NOTE | 2024-12-20 17:19 | ECG_ITS ---
Test Reason : bbb Blood Pressure : */* mmHG Vent. Rate : 63 BPM Atrial Rate : 63 BPM P-R Int : 214 ms QRS Dur : 154 ms QT Int : 436 ms P-R-T Axes : 59 -6 -26 degrees QTcB Int : 446 ms Sinus rhythm with 1st degree A-V block Right bundle branch block Inferior infarct , age undetermined Abnormal ECG No previous ECGs available Referred By: Ed Darby Electronically Signed By: SIM MAYORGA MD
--- NOTE | 2024-12-20 17:34 | P.HPHOSP_ITS ---
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 Patient states that over the last 10 days he has had increasing difficulty with bowel movements. Patient states that he was having some pass but 3 days ago that has stopped and he is no longer passing gas. Patient states that he is nauseous but has not vomited. Patient states he has had several loose/liquid bowel movements but nothing solid. He states he has had this intermittent constipation for several years. Abdominal pain and bloating brought him to the ER this episode Review of Systems 2 Review of Systems: Denies chest pain Denies shortness of breath Denies vomiting; admits nausea and diarrhea Admits to diffuse lower abdominal pain and cramping Denies fever chills PMFSH Medical History (Updated 12/20/24 @ 17:40 by Jose Dorman DO) Chronic anemia Basal cell carcinoma Squamous cell carcinoma of face CLL (chronic lymphocytic leukemia) HLD (hyperlipidemia) HTN (hypertension) Surgical History H/O neck surgery H/O heart artery stent History of total right hip replacement History of total left hip replacement History of facial surgery Social History Are you a primary pediatric critical care nurse to a significant other at home: No Do you presently have visiting nurse or other home services: No Patient Tobacco Use Status: Never used Tobacco Use of substances other than those prescribed or required for medical reasons: Yes Substance Use Type Other:: THC Edibles Substance Use Frequency: Occasionally Have you been hit, kicked, punched, or otherwise hurt by someone within the past year? If so, by whom?: No Are you DNR?: No Advance Directives: No Advance Directives Information Provided: No Advance Directives on File: No Poor oral hygiene: No Meds Allergies Allergy/AdvReac Type Severity Reaction Status Date / Time No Known Allergies Allergy Verified 12/20/24 17:03 Active Medications: Current Medications Acetaminophen (Acetaminophen 325 Mg Tablet) 650 mg PO Q6H PRN PRN Reason: Pain, Mild 1-3,fever,headache Calcium Carbonate (Calcium Carbonate 750 Mg Tab.Chew) 750 mg PO Q4H PRN PRN Reason: Heartburn Enoxaparin Sodium (Enoxaparin Sodium 40 Mg/0.4 Ml Syringe) 40 mg SUBCUT Q24H PATEL Magnesium Hydroxide (Milk Of Magnesia 30 Ml Oral.Susp) 30 ml PO DAILY PRN PRN Reason: Constipation Melatonin (Melatonin 3 Mg Tablet) 6 mg PO BEDTIME PRN PRN Reason: Insomnia Morphine Sulfate (Morphine Sulfate 4 Mg/Ml Cartridge) 4 mg IVPUSH Q4H PRN; Protocol PRN Reason: abd pain Ondansetron HCl (Ondansetron Hcl 4 Mg/2 Ml Vial) 4 mg IVPUSH Q8H PRN PRN Reason: Nausea and Vomiting Sodium Chloride (0.9 % Sodium Chloride Flush 3 Ml Syringe) 3 ml IVFLUSH QSHIFT [facility] Home Medications ?Medication ?Instructions ?Recorded ?Confirmed ?Last Taken ?Type amlodipine 10 mg tablet 10 mg PO DAILY 12/20/24 12/20/24 12/19/24 History atorvastatin 40 mg tablet 40 mg PO DAILY 12/20/24 12/20/24 12/19/24 History carvedilol 6.25 mg tablet 6.25 mg PO BID 12/20/24 12/20/24 12/19/24 History cefadroxil 500 mg capsule 500 mg PO BID 12/20/24 12/20/24 12/19/24 History losartan 100 mg tablet 100 mg PO DAILY 12/20/24 12/20/24 12/19/24 History methocarbamol 750 mg tablet 750 mg PO Q6-8H PRN muscle spasm 12/20/24 12/20/24 Unknown History oxycodone 5 mg tablet 5 mg PO Q6-8H PRN severe pain 12/20/24 12/20/24 Unknown History tramadol 50 mg tablet 50 mg PO Q6-8H PRN severe pain 12/20/24 12/20/24 Unknown History Physical Exam 2 Vital Signs and Narrative: Vital Signs: Last Vital Signs Temp 97.5 F 12/20/24 17:09 Pulse 66 12/20/24 17:09 Resp 16 12/20/24 17:09 BP 164/90 H 12/20/24 17:09 Pulse Ox 99 12/20/24 17:09 O2 Del Method Room Air 12/20/24 17:09 BMI result Body Mass Index 23.0 Const: Other: Awake alert no acute distress lying quietly in bed Resp: Other: Clear to auscultation bilaterally no rales rhonchi or wheezes Cardio: Other: No S4; positive S1-S2; no S3 murmurs rubs or gallops GI: Other: Mildly distended with diffuse tenderness across lower abdomen without rebound. Bowel sounds quiet Neuro: Other: Cranial nerves 2-12 grossly intact as tested. Motor is 5/5 all extremities. Sensation is intact. Cognition appropriate. Gait not observed Extrem: Other: No edema bilaterally Results Labs 12/20/24 11:00 12/20/24 11:00 Labs: Laboratory Results - last 24 hr 12/20/24 11:00 MCV 98.0 MCH 33.4 H MCHC 34.1 RDW 17.4 H Plt Count 122 L MPV 8.3 L Immature Gran % (Auto) Cancelled Neut % (Auto) Cancelled Lymph % (Auto) Cancelled [place] % (Auto) Cancelled Eos % (Auto) Cancelled Baso % (Auto) Cancelled Lymph # (Auto) Cancelled [place] # (Auto) Cancelled Eos # (Auto) Cancelled Baso # (Auto) Cancelled Abs Immat Gran (auto) Cancelled Absolute Neuts (auto) Cancelled Absolute Nucleated RBC 0.000 Nucleated RBC % (auto) 0.0 Neutrophils % (Manual) 20 L Band Neutrophils % 2 L Lymphocytes % (Manual) 74 H Atypical Lymphs % (Man) 3 Eosinophils % (Manual) 1 Abs Neuts (Manual) 2.4 Lymphocytes # (Manual) 8.1 H Atyp Lymphs # (Manual) 0.3 Eosinophils # (Manual) 0.1 Smudge Cells PRESENT Platelet Estimate DECREASED Plt Morphology Comment NORMAL RBC Morphology NOTED Tear Drop Cells 1+ (0-2) Smear Path Review SEE NOTE Anion Gap 10 L Estim Creat Clear Calc 99.3 Estimated GFR > 60 Random Glucose 108 Calcium 9.5 Magnesium 1.9 Total Bilirubin 0.6 Direct Bilirubin 0.3 AST 49 H ALT 30 Alkaline Phosphatase 159 H Total Protein 7.1 Albumin 4.2 Lipase 49 Influenza Type A (PCR) NEGATIVE Influenza Type B (PCR) NEGATIVE RSV RNA Qual (PCR) NEGATIVE SARS-CoV-2 RNA (RT-PCR) NEGATIVE Imaging Radiologist's Impressions: Impressions KUB X-Ray 12/20/24 11:10 IMPRESSION: 1. Marked gaseous dilatation of the large bowel. Stool seen in the right lower quadrant. Differential includes a large bowel obstruction, ileus, or chronic atonic colonic syndrome such as [place] syndrome. 2. No indirect evidence of free air although this is a supine radiograph. 3. Bilateral hip replacements with abundant left greater than right heterotopic bone formation. Electronically signed by: Marcelo Dawson MD 12/20/2024 11:36 AM EDT RP Abdomen/Pelvis CT 12/20/24 15:17 IMPRESSION: 1. Sigmoid volvulus with dilatation of the more proximal colon measuring up to 9.9 cm in diameter. 2. 5.1 x 6.3 x 4.7 cm rim-enhancing fluid collection superior and lateral to the right hip which may represent a seroma or abscess. 3. Findings were discussed with Marj Nails in the emergency room on 12/20/2024 at 3:47 PM. Electronically signed by: Eliseo Jones MD 12/20/2024 03:54 PM EDT RP Assessment and Plan (1) Sigmoid volvulus: Status: Acute (2) Coronary artery disease: Qualifiers: Coronary Disease-Associated Artery/Lesion type: unspecified vessel or lesion type [place] vs. transplanted heart: [place] heart Associated angina: w ithout angina Qualified Code(s): I25.10 - Atherosclerotic heart disease of [place] coronary artery without angina pectoris Status: Acute (3) HTN (hypertension): Qualifiers: Hypertension type: primary hypertension Qualified Code(s): I10 - Essential (primary) hypertension Status: Acute (4) HLD (hyperlipidemia): Qualifiers: Hyperlipidemia type: unspecified Qualified Code(s): E78.5 - Hyperlipidemia, unspecified Status: Acute Plan 74-year-old male with a history of CLL, 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 Initial workup consistent with sigmoid volvulus 1. Sigmoid volvulus -seen by Dr. Tineo (GI); urgent colonoscopic decompression. . . Further plans based on results of same -patient is a moderate but acceptable cardiovascular risk for planned procedure; there are no medically prohibitive issues at this time 2. Coronary artery disease (past history of stenting) -stable and well compensated as endorsed by patient -continue outpatient therapies -telemetry postprocedure 3. Hypertension -acceptable control on current therapies -resume outpatient therapies in a.m. as indicated 4. Hyperlipidemia -continue outpatient statin dosing DNR DNI Lovenox (to start in a.m. if appropriate) Patient will require at least 2 midnights going forward of inpatient stay for urgent attempt of decompression of a sigmoid volvulus and empiric IV antibiotics. Further specialty consultations based on forthcoming events. This can not be achieved a [facility] Quality Stroke Does the patient have a stroke diagnosis?: No VTE Prior VTE?: No VTE Risk Level:: Medical - moderate - high VTE Device Contraindication: Treatment Not Indicated VTE Drug Contraindication: N/A - Med Ordered
--- NOTE | 2024-12-20 17:42 | PC.NURSE ---
Patient in preop for emergent colonoscopy prep. Oral Gastrografin administered at [address] Darby at bedside and made aware. Case deemed emergent per Dr. Tineo. Patient alert and oriented. Health Care Proxy documentation filled out in preop by two RNs and patient. Dr. Darby at bedside. EKG ordered, SR with first degree AV block. No new orders at this time. NG tube placed by Dr. Darby to ensure an empty stomach prior to procedure, patient tolerated well with small sips of iced apple juice. Suction turned on by Dr. Darby and small amount of clear thin secretions suctioned into container. Tube then immediately removed by Dr. Darby. OR nurse Fidelia made aware.
--- NOTE | 2024-12-20 17:50 | MHC.SHP ---
Pre-Procedural Eval Section A - 24 Hr Update-Section A only Date of Service: 12/20/24 The patient is an INPATIENT: Yes The patient has been examined within 24 hours of the surgical procedure. The History & Physical has been completed within 30 days and I have reviewed it.: Yes Section B - Complete if H&P > 30 days Chief Complaint: Constipation Allergies: Allergies Allergy/AdvReac Type Severity Reaction Status Date / Time No Known Allergies Allergy Verified 12/20/24 17:03 Plan I have reviewed the history and physical and performed a pertinent physical examination on my patient. No changes have occurred unless specified. Time Spent With Patient Time: Total time managing care of this patient today ____ minutes.
--- NOTE | 2024-12-20 18:13 | PHA.MEDREC ---
Addendum entered by Josemanuel Merchant [facility] 12/20/24 18:19: MED REC CHECKED BY [facility] Original Note: Pharmacy Consult ? Medication Reconciliation Pharmacy has reviewed the medication reconciliation done by nursing. Utilized claims to confirm med list.
--- OUTSIDE RECORDS SUMMARY | 2024-12-20 18:42 | XMS_ITS | Encounter Summary ---
Author Organization [facility] Address [address] [place] [address] Care Team Providers Care Clay Miner Name Role Phone Suzanna Mcgill Primary Care Provider [phone] Encounter Details Date Type Department Care Team (Late st Contact Info) Description 08/26/2022 Lab Requisition [facility] [address] [place] [id number] Ashu Mason MD [address] [place] [address] [id number] Social History Tobacco Use Types Packs/Day Years [...] of this encounter Procedures * Due to [place] law, this organization might not be sharing negative HIV tests. Procedure Name Priority Date/Time Associated Diagnosis Comments NON-GYNECOLOGIC CYTOLOGY 08/26/2022 8:00 AM EST documented in this encounter Results * Due to [place] law, this organization might not be sharing negative HIV tests. * (ABNORMAL) Non-Gynecologic Cytology (08/26/2022 8:00 AM EST) Final Diagnosis Specimen 1: Cheek, Right; Incoming consult, FNA Positive for malignant cells. Squamous cell carcinoma, keratinizing. See note. Note: The case was labelled as Right cheek, FNA, NOS , part 1 and part 2. Both part 1 and part 2 show squamous cell carcinoma. [facility] MANUAL 08/27/2022 10:43 AM EST [facility] at 1043 EST Clinical History SCC Cheek [facility] [facility] 08/27/2022 10:43 AM EST [facility] Gross Description Specimen 1: Received from [facility] are 6 glass slides labeled [id number] corresponding to a right cheek FNA obtained on 08/12/2022, according to the accompanying cytology report bearing the patient's name and date of . [facility] MANUAL 08/27/2022 10:43 AM EST [facility] Embedded Images [facility] 08/27/2022 10:43 AM EST [employer] Resulting Agency Case was signed out at [facility], Department of Pathology, [facility] [id number] [facility] MANUAL 08/27/2022 10:43 AM EST [facility] Abnormal Yes(A) (none) [facility]UAL 08/27/2022 10:43 AM EST [facility] Report Header Non-Gynecologic Cytology Report ? Case: [id number] ? Authorizing Provider: ??Ashu Mason MD ? Collected: ? 08/26/2022 0800 ? Ordering Location: ? [facility] ? Received: ?08/26/2022 1546 ? [facility] ? Pathologist: ? Rigoberto Brito MD ? Specimen: ?Cheek, Right, Incoming consult, FNA ? 08/27/2022 10:43 AM EST [facility] Structure of right cheek / Unknown 08/26/2022 8:00 AM EST 08/26/2022 3:46 PM EST us Ashu Mason MD LAB PATHOLOGY/CYTOLOGY ORDER FACUNDO Final Result Performing Organization Address City/State/[facility] Co de Phone Number [facility] [address] [place] [address], documented in this encounter Visit Diagnoses Not on filedocumented in this encounter Care Teams Clay Miner Relationship Specialty Start Date End Date Suzanna Mcgill [address] [place] [address] PCP - General 08/14/22 documented as of this encounter
--- OUTSIDE RECORDS SUMMARY | 2024-12-20 18:42 | XMS_ITS ---
Author Name [facility] Organization Unknown Results Test Name/Text Value Interpretation Date Range Source Ref Lab Test Results See Scanned Result Normal [id number] [facility] Rh Bld Positive Normal [id number] [facility] Bld gp Ab Scn SerPl Ql Negative Normal [id number] [facility] ABO Group Bld A Normal [id number] [facility] Bilirub Direct SerPl-mCnc 0.2mg/dL Normal [id number] 0 - 0.2 [facility] Glucose SerPl-mCnc 93mg/dL Normal [id number] 70 - 199 [facility] Calcium SerPl-mCnc 8mg/dL Below low normal 566168339832 8 .4 - 10.2 [facility] Sodium SerPl-sCnc 129mmol/L Below low normal 114950252655 13 5 - 145 [facility] BUN SerPl-mCnc 8mg/dL Below low normal [id number] 9 - 2 0 [facility] ALP SerPl-cCnc 86unit/L Normal [id number] 34 - 104 [facility] Anion Gap SerPl-sCnc 5 Normal [id number] 5 - 14 [facility] Albumin SerPl-mCnc 3.2g/dL Below low normal [id number] 3 .5 - 5 [facility] ALT SerPl-cCnc 18unit/L Normal [id number] 7 - 52 [facility] eGFRcr SerPlBld CKD-EPI 1 101mL/min/1.73m 2 Normal [id number] - [facility] Creat SerPl-mCnc 0.6mg/dL Below low normal [id number] 0.7 - 1.3 [facility] AST SerPl-cCnc 28unit/L Normal [id number] 5 - 40 [facility] CO2 SerPl-sCnc 28mmol/L Normal [id number] 24 - 32 [facility] BUN/Creat SerPl 13.3 Normal [id number] 12 - 20 [facility] Bilirub SerPl-mCnc 1.1mg/dL Above high normal [id number] 0.3 - 1 [facility] Chloride SerPl-sCnc 96mmol/L Below low normal [id number] 98 - 107 [facility] Potassium SerPl-sCnc 3.5mmol/L Normal [id number] 3.5 - 5.1 [facility] Prot SerPl-mCnc 5.4g/dL Below low normal [id number] 6.4 - 8.5 [facility] LDH SerPl L to P-cCnc 342unit/L Above high normal [id number] 125 - 220 [facility] aPTT PPP 31.1sec Normal [id number] 25 - 37 [facility] Fibrinogen PPP-mCnc 671mg/dL Above high normal [id number] 145 - 415 [facility] INR PPP 1.1 Normal [id number] 0.8 - 1.1 [facility] PT Bld 12.7sec Normal [id number] 10.5 - 13.3 [facility] MCV RBC Auto 92.8FL Normal [id number] 78 - 100 [facility] RBC # Bld Auto 2.28M/mcL Below low normal [id number] 4.7 - 6 [facility] WBC # Bld Auto 9.2K/mcL Normal [id number] 4 - 10.5 [facility] RDW RBC Auto-Rto 17.4% Normal [id number] 12.1 - 17.7 [facility] Hct VFr Bld Auto 21.2% Below low normal [id number] 40 - 54 [facility] Platelet # Bld Auto 143K/mcL Below low normal [id number] 150 - 450 [facility] PMV Bld Auto 6.9FL Below low normal [id number] 7.4 - 1 1.4 [facility] Hgb Bld-mCnc 7.3g/dL Below low normal [id number] 13.5 - 18 [facility] MCH RBC Qn Auto 31.8pcg Normal [id number] 25 - 33 [facility] MCHC RBC Auto-mCnc 34.3g/dL Normal [id number] 32 - 36 [facility] LDH SerPl L to P-cCnc 271unit/L Above high normal [id number] 125 - 220 [facility] Bilirub Direct SerPl-mCnc 0.2mg/dL Normal [id number] 0 - 0.2 [facility] Glucose SerPl-mCnc 101mg/dL Normal [id number] 70 - 199 [facility] Calcium SerPl-mCnc 7.8mg/dL Below low normal [id number] 8 .4 - 10.2 [facility] Sodium SerPl-sCnc 131mmol/L Below low normal [id number] 13 5 - 145 [facility] BUN SerPl-mCnc 9mg/dL Normal [id number] 9 - 20 [facility] ALP SerPl-cCnc 78unit/L Normal [id number] 34 - 104 [facility] Anion Gap SerPl-sCnc 5 Normal [id number] 5 - 14 [facility] Albumin SerPl-mCnc 3.1g/dL Below low normal [id number] 3 .5 - 5 [facility] ALT SerPl-cCnc 14unit/L Normal [id number] 7 - 52 [facility] eGFRcr SerPlBld CKD-EPI 2020 107mL/min/1.73m 2 Normal [id number] - [facility] Creat SerPl-mCnc 0.5mg/dL Below low normal [id number] 0.7 - 1.3 [facility] AST SerPl-cCnc 23unit/L Normal [id number] 5 - 40 [facility] CO2 SerPl-sCnc 28mmol/L Normal [id number] 24 - 32 [facility] BUN/Creat SerPl 18 Normal [id number] 12 - 20 [facility] Bilirub SerPl-mCnc 1.2mg/dL Above high normal [id number] 0.3 - 1 [facility] Chloride SerPl-sCnc 98mmol/L Normal [id number] 98 - 107 [facility] Potassium SerPl-sCnc 3.9mmol/L Normal [id number] 3.5 - 5.1 [facility] Prot SerPl-mCnc 5.2g/dL Below low normal [id number] 6.4 - 8.5 [facility] INR PPP 1.1 Normal [id number] 0.8 - 1.1 [facility] PT Bld 13.1sec Normal [id number] 10.5 - 13.3 [facility] aPTT PPP 31.2sec Normal [id number] 25 - 37 [facility] Fibrinogen PPP-mCnc 617mg/dL Above high normal [id number] 145 - 415 [facility] MCV RBC Auto 92.2FL Normal [id number] 78 - 100 [facility] RBC # Bld Auto 2.34M/mcL Below low normal [id number] 4.7 - 6 [facility] WBC # Bld Auto 9.6K/mcL Normal [id number] 4 - 10.5 [facility] RDW RBC Auto-Rto 17.6% Normal [id number] 12.1 - 17.7 [facility] Hct VFr Bld Auto 21.6% Below low normal [id number] 40 - 54 [facility] Platelet # Bld Auto 126K/mcL Below low normal [id number] 150 - 450 [facility] PMV Bld Auto 7FL Below low normal [id number] 7.4 - 1 1.4 [facility] Hgb Bld-mCnc 7.4g/dL Below low normal [id number] 13.5 - 18 [facility] MCH RBC Qn Auto 31.5pcg Normal [id number] 25 - 33 [facility] MCHC RBC Auto-mCnc 34.2g/dL Normal [id number] 32 - 36 [facility] LDH SerPl L to P-cCnc 236unit/L Above high normal [id number] 125 - 220 [facility] Bilirub Direct SerPl-mCnc 0.2mg/dL Normal [id number] 0 - 0.2 [facility] Glucose SerPl-mCnc 126mg/dL Normal [id number] 70 - 199 [facility] Calcium SerPl-mCnc 8mg/dL Below low normal [id number] 8 .4 - 10.2 [facility] Sodium SerPl-sCnc 130mmol/L Below low normal [id number] 13 5 - 145 [facility] BUN SerPl-mCnc 10mg/dL Normal [id number] 9 - 20 [facility] ALP SerPl-cCnc 70unit/L Normal [id number] 34 - 104 [facility] Anion Gap SerPl-sCnc 4 Below low normal [id number] 5 - 14 [facility] Albumin SerPl-mCnc 3.1g/dL Below low normal [id number] 3 .5 - 5 [facility] ALT SerPl-cCnc 11unit/L Normal [id number] 7 - 52 [facility] eGFRcr SerPlBld CKD-EPI 2020 107mL/min/1.73m 2 Normal [id number] - [facility] Creat SerPl-mCnc 0.5mg/dL Below low normal [id number] 0.7 - 1.3 [facility] AST SerPl-cCnc 21unit/L Normal [id number] 5 - 40 [facility] CO2 SerPl-sCnc 31mmol/L Normal [id number] 24 - 32 [facility] BUN/Creat SerPl 20 Normal [id number] 12 - 20 [facility] Bilirub SerPl-mCnc 1mg/dL Normal [id number] 0.3 - 1 [facility] Chloride SerPl-sCnc 95mmol/L Below low normal [id number] 98 - 107 [facility] Potassium SerPl-sCnc 3.8mmol/L Normal [id number] 3.5 - 5.1 [facility] Prot SerPl-mCnc 5.2g/dL Below low normal [id number] 6.4 - 8.5 [facility] Fibrinogen PPP-mCnc 557mg/dL Above high normal [id number] 145 - 415 [facility] aPTT PPP 31.6sec Normal [id number] 25 - 37 [facility] INR PPP 1 Normal [id number] 0.8 - 1.1 [facility] PT Bld 12.2sec Normal [id number] 10.5 - 13.3 [facility] MCV RBC Auto 91.3FL Normal [id number] 78 - 100 [facility] RBC # Bld Auto 2.47M/mcL Below low normal [id number] 4.7 - 6 [facility] WBC # Bld Auto 10.7K/mcL Above high normal [id number] 4 - 10.5 [facility] RDW RBC Auto-Rto 17.6% Normal [id number] 12.1 - 17.7 [facility] Hct VFr Bld Auto 22.6% Below low normal [id number] 40 - 54 [facility] Platelet # Bld Auto 119K/mcL Below low normal [id number] 150 - 450 [facility] PMV Bld Auto 7.1FL Below low normal [id number] 7.4 - 1 1.4 [facility] Hgb Bld-mCnc 7.7g/dL Below low normal [id number] 13.5 - 18 [facility] MCH RBC Qn Auto 31.3pcg Normal [id number] 25 - 33 [facility] MCHC RBC Auto-mCnc 34.2g/dL Normal [id number] 32 - 36 [facility] Rh Bld Positive Normal [id number] [facility] Bld gp Ab Scn SerPl Ql Negative Normal [id number] [facility] ABO Group Bld A Normal [id number] [facility] MCV RBC Auto 91.9FL Normal [id number] 78 - 100 [facility] Lymphocytes # Bld Auto 7.2K/mcL Above high normal [id number] 1 - 3.2 [facility] WBC # Bld Auto 9.1K/mcL Normal [id number] 4 - 10.5 [facility] Monocytes/leuk NFr Bld Auto 0.4% Below low normal [id number] 2 - 12 [facility] Platelet # Bld Auto 102K/mcL Below low normal [id number] 150 - 450 [facility] PMV Bld Auto 7FL Below low normal [id number] 7.4 - 1 1.4 [facility] MCH RBC Qn Auto 31.5pcg Normal [id number] 25 - 33 [facility] Eosinophil # Bld Auto 0K/mcL Normal [id number] 0 - 0.5 [facility] Neutrophils/leuk NFr Bld Auto 20.1% Below low normal [id number] 44 - 74 [facility] RBC # Bld Auto 2.3M/mcL Below low normal [id number] 4.7 - 6 [facility] Monocytes # Bld Auto 0K/mcL Normal [id number] 0 - 0.8 [facility] RDW RBC Auto-Rto 17.6% Normal [id number] 12.1 - 17.7 [facility] Lymphocytes/leuk NFr Bld Auto 79% Above high normal [id number] 20 - 48 [facility] Eosinophil/leuk NFr Bld Auto 0.3% Normal [id number] 0 - 6 [facility] Basophils # Bld Auto 0K/mcL Normal [id number] 0 - 0.2 [facility] Neutrophils # Bld Auto 1.8K/mcL Normal [id number] 1.8 - 7.8 [facility] Hct VFr Bld Auto 21.1% Below low normal [id number] 40 - 54 [facility] Hgb Bld-mCnc 7.2g/dL Below low normal [id number] 13.5 - 18 [facility] MCHC RBC Auto-mCnc 34.2g/dL Normal [id number] 32 - 36 [facility] Basophils/leuk NFr Bld Auto 0.2% Normal [id number] 0 - 2 [facility] Hct VFr Bld Auto 20.2% Below low normal [id number] 40 - 54 [facility] Hgb Bld-mCnc 7g/dL Critically low [id number] 13.5 - 18 [facility] Glucose SerPl-mCnc 108mg/dL Normal [id number] 70 - 199 [facility] Calcium SerPl-mCnc 7.7mg/dL Below low normal [id number] 8 .4 - 10.2 [facility] Sodium SerPl-sCnc 131mmol/L Below low normal [id number] 13 5 - 145 [facility] BUN SerPl-mCnc 8mg/dL Below low normal [id number] 9 - 2 0 [facility] ALP SerPl-cCnc 58unit/L Normal [id number] 34 - 104 [facility] Anion Gap SerPl-sCnc 4 Below low normal [id number] 5 - 14 [facility] Albumin SerPl-mCnc 3.2g/dL Below low normal [id number] 3 .5 - 5 [facility] ALT SerPl-cCnc 10unit/L Normal [id number] 7 - 52 [facility] eGFRcr SerPlBld CKD-EPI 2020 101mL/min/1.73m 2 Normal [id number] - [facility] Creat SerPl-mCnc 0.6mg/dL Below low normal [id number] 0.7 - 1.3 [facility] AST SerPl-cCnc 17unit/L Normal [id number] 5 - 40 [facility] CO2 SerPl-sCnc 29mmol/L Normal [id number] 24 - 32 [facility] BUN/Creat SerPl 13.3 Normal [id number] 12 - 20 [facility] Bilirub SerPl-mCnc 0.8mg/dL Normal [id number] 0.3 - 1 [facility] Chloride SerPl-sCnc 98mmol/L Normal [id number] 98 - 107 [facility] Potassium SerPl-sCnc 3.5mmol/L Normal [id number] 3.5 - 5.1 [facility] Prot SerPl-mCnc 5.2g/dL Below low normal [id number] 6.4 - 8.5 [facility] Haptoglob SerPl-mCnc 31mg/dL Below low normal [id number] 44 - 215 [facility] Bilirub Direct SerPl-mCnc 0.1mg/dL Normal [id number] 0 - 0.2 [facility] Bilirub SerPl-mCnc 0.8mg/dL Normal [id number] 0.3 - 1 [facility] Bilirub Indirect SerPl-mCnc 0.7mg/dL Normal [id number] [facility] LDH SerPl L to P-cCnc 193unit/L Normal [id number] 125 - 220 [facility] MCV RBC Auto 91.1FL Normal [id number] 78 - 100 [facility] Lymphocytes # Bld Auto 6.9K/mcL Above high normal [id number] 1 - 3.2 [facility] WBC # Bld Auto 8.5K/mcL Normal [id number] 4 - 10.5 [facility] Monocytes/leuk NFr Bld Auto 0.5% Below low normal [id number] 2 - 12 [facility] Platelet # Bld Auto 93K/mcL Below low normal [id number] 150 - 450 [facility] PMV Bld Auto 7.3FL Below low normal [id number] 7.4 - 1 1.4 [facility] MCH RBC Qn Auto 31.1pcg Normal [id number] 25 - 33 [facility] Eosinophil # Bld Auto 0K/mcL Normal [id number] 0 - 0.5 [facility] Neutrophils/leuk NFr Bld Auto 18.3% Below low normal [id number] 44 - 74 [facility] RBC # Bld Auto 2.15M/mcL Below low normal [id number] 4.7 - 6 [facility] Monocytes # Bld Auto 0K/mcL Normal [id number] 0 - 0.8 [facility] RDW RBC Auto-Rto 17.3% Normal [id number] 12.1 - 17.7 [facility] Lymphocytes/leuk NFr Bld Auto 80.7% Above high normal [id number] 20 - 48 [facility] Eosinophil/leuk NFr Bld Auto 0.4% Normal [id number] 0 - 6 [facility] Basophils # Bld Auto 0K/mcL Normal [id number] 0 - 0.2 [facility] Neutrophils # Bld Auto 1.6K/mcL Below low normal [id number] 1.8 - 7.8 [facility] Hct VFr Bld Auto 19.6% Below low normal [id number] 40 - 54 [facility] Hgb Bld-mCnc 6.7g/dL Critically low [id number] 13.5 - 18 [facility] MCHC RBC Auto-mCnc 34.1g/dL Normal [id number] 32 - 36 [facility] Basophils/leuk NFr Bld Auto 0.1% Normal [id number] 0 - 2 [facility] aPTT PPP 32.4sec Normal [id number] 25 - 37 [facility] INR PPP 1.1 Normal [id number] 0.8 - 1.1 [facility] PT Bld 12.6sec Normal [id number] 10.5 - 13.3 [facility] Fibrinogen PPP-mCnc 455mg/dL Above high normal [id number] 145 - 415 [facility] Hct VFr Bld Auto 19% Below low normal [id number] 40 - 54 [facility] Hgb Bld-mCnc 6.5g/dL Critically low [id number] 13.5 - 18 [facility] Hct VFr Bld Auto 22.8% Below low normal [id number] 40 - 54 [facility] Hgb Bld-mCnc 7.8g/dL Below low normal [id number] 13.5 - 18 [facility] Transferrin SerPl-mCnc 153mg/dL Below low normal [id number] 204 - 360 [facility] Haptoglob SerPl-mCnc 111mg/dL Normal [id number] 44 - 215 [facility] INR PPP 1 Normal [id number] 0.8 - 1.1 [facility] PT Bld 11.8sec Normal [id number] 10.5 - 13.3 [facility] Ferritin SerPl-mCnc 163ng/mL Normal [id number] 20 - 250 [facility] Vit B12 SerPl-mCnc 1017pcg/mL Above high normal [id number] 180 - 914 [facility] Folate SerPl-mCnc 17.6ng/ml Normal [id number] - [facility] LDH SerPl L to P-cCnc 162unit/L Normal [id number] 125 - 220 [facility] UIBC SerPl-mCnc 118mcg/dL Below low normal [id number] 155 - 355 [facility] Iron Satn MFr SerPl 45% Normal [id number] 20 - 45 [facility] TIBC SerPl-mCnc 216mcg/dL Below low normal [id number] 250 - 450 [facility] Iron SerPl-mCnc 98mcg/dL Normal [id number] 49 - 181 [facility] Glucose SerPl-mCnc 112mg/dL Normal [id number] 70 - 199 [facility] Calcium SerPl-mCnc 7.8mg/dL Below low normal [id number] 8 .4 - 10.2 [facility] Sodium SerPl-sCnc 133mmol/L Below low normal [id number] 13 5 - 145 [facility] BUN SerPl-mCnc 11mg/dL Normal [id number] 9 - 20 [facility] ALP SerPl-cCnc 57unit/L Normal [id number] 34 - 104 [facility] Anion Gap SerPl-sCnc 7 Normal [id number] 5 - 14 [facility] Albumin SerPl-mCnc 3.4g/dL Below low normal [id number] 3 .5 - 5 [facility] ALT SerPl-cCnc 14unit/L Normal [id number] 7 - 52 [facility] eGFRcr SerPlBld CKD-EPI 1 97mL/min/1.73m2 Normal [id number] - [facility] Creat SerPl-mCnc 0.7mg/dL Normal [id number] 0.7 - 1.3 [facility] AST SerPl-cCnc 22unit/L Normal [id number] 5 - 40 [facility] CO2 SerPl-sCnc 27mmol/L Normal [id number] 24 - 32 [facility] BUN/Creat SerPl 15.7 Normal [id number] 12 - 20 [facility] Bilirub SerPl-mCnc 0.8mg/dL Normal [id number] 0.3 - 1 [facility] Chloride SerPl-sCnc 99mmol/L Normal [id number] 98 - 107 [facility] Potassium SerPl-sCnc 3.7mmol/L Normal [id number] 3.5 - 5.1 [facility] Prot SerPl-mCnc 5.3g/dL Below low normal [id number] 6.4 - 8.5 [facility] BETTINA C3 Positive Normal [id number] [facility] BETTINA IGG Negative Normal [id number] [facility] BETTINA Polyspecific Positive Normal [id number] [facility] Lg Platelets Bld Ql Auto Platelets Appear Decreased Normal [id number] [facility] Polychromasia Present Occasional Normal 983606263648 [facility] Macrocytes Present Occasional Normal [id number] [facility] Hypochromia Present Present Normal 937894010539 [facility] Microcytes Present Present Normal [id number] [facility] Ovalocytes Bld Ql Smear Occasional Normal [id number] [facility] Lymphocytes # Bld Manual 5.95K/mcL Above high normal [id number] 1 - 3.2 [facility] Neuts Band # Bld Manual 0.17K/mcL Normal [id number] [facility] Neuts Seg/leuk NFr Bld Manual 22% Below low normal [id number] 44 - 74 [facility] Neuts Seg # Bld Manual 1.87K/mcL Normal [id number] 1.8 - 7.8 [facility] Basophils # Bld Manual 0.09K/mcL Normal [id number] 0 - 0.2 [facility] Lymphocytes/leuk NFr Bld Manual 70% Above high normal [id number] 20 - 48 [facility] Monocytes/leuk NFr Bld Manual 5% Normal [id number] 2 - 12 [facility] Neuts Band/leuk NFr Bld Manual 2% Normal [id number] 0 - 15 [facility] Basophils/leuk NFr Bld Manual 1% Normal [id number] 0 - 2 [facility] Monocytes # Bld Manual 0.43K/mcL Normal [id number] 0 - 0.8 [facility] MCV RBC Auto 91.2FL Normal [id number] 78 - 100 [facility] RBC # Bld Auto 2.07M/mcL Below low normal [id number] 4.7 - 6 [facility] WBC # Bld Auto 8.5K/mcL Normal [id number] 4 - 10.5 [facility] RDW RBC Auto-Rto 17.5% Normal [id number] 12.1 - 17.7 [facility] Hct VFr Bld Auto 18.9% Below low normal [id number] 40 - 54 [facility] Platelet # Bld Auto 68K/mcL Below low normal [id number] 150 - 450 [facility] PMV Bld Auto 7.4FL Normal [id number] 7.4 - 11.4 [facility] Hgb Bld-mCnc 6.5g/dL Critically low [id number] 13.5 - 18 [facility] MCH RBC Qn Auto 31.3pcg Normal [id number] 25 - 33 [facility] MCHC RBC Auto-mCnc 34.3g/dL Normal [id number] 32 - 36 [facility] Retics/100 RBC NFr Auto 5% Above high normal [id number] 0.7 - 1.7 [facility] Hct VFr Bld Auto 19.1% Below low normal [id number] 40 - 54 [facility] Hgb Bld-mCnc 6.5g/dL Critically low [id number] 13.5 - 18 [facility] Rh Bld Positive Normal [id number] [facility] Bld gp Ab Scn SerPl Ql Negative Normal [id number] [facility] ABO Group Bld A Normal [id number] [facility] Hct VFr Bld Auto 15.6% Below low normal [id number] 40 - 54 [facility] Hgb Bld-mCnc 5.3g/dL Critically low [id number] 13.5 - 18 [facility] Hct VFr Bld Auto 17.8% Below low normal [id number] 40 - 54 [facility] Hgb Bld-mCnc 5.9g/dL Critically low [id number] 13.5 - 18 [facility] Hct VFr Bld Auto 23.4% Below low normal [id number] 40 - 54 [facility] Hgb Bld-mCnc 7.9g/dL Below low normal [id number] 13.5 - 18 [facility] Hct VFr Bld Auto 19.6% Below low normal [id number] 40 - 54 [facility] Hgb Bld-mCnc 6.7g/dL Critically low [id number] 13.5 - 18 [facility] Hct VFr Bld Auto 22.6% Below low normal [id number] 40 - 54 [facility] Hgb Bld-mCnc 7.9g/dL Below low normal [id number] 13.5 - 18 [facility] Hct VFr Bld Auto 19.5% Below low normal [id number] 40 - 54 [facility] Hgb Bld-mCnc 6.9g/dL Critically low [id number] 13.5 - 18 [facility] Hct VFr Bld Auto 16.7% Below low normal [id number] 40 - 54 [facility] Hgb Bld-mCnc 5.7g/dL Critically low 13. - 18 [facility] Hct VFr Bld Auto 20.4% Below low normal [id number] 40 - 54 [facility] Hgb Bld-mCnc 7.2g/dL Below low normal 13. - 18 [facility] Ca-I Bld-mCnc 1.24mmol/L Normal 1.19 - 1.35 [facility] Hgb BldV-mCnc 8.8g/dL Below low normal 13. - 18 [facility] PCO2 Temp Corrected Venous, POCT 47.8mmHg Normal - [facility] Base excess BldV Calc-sCnc 0mmol/L Normal - [facility] pH Temp Corrected Venous, POCT 7.33 Below low normal 7.35 - 7.45 [facility] Hct VFr BldV 26% Below low normal [id number] [facility] pO2 BldV 59mmHg Normal - [facility] Patient Temperature POCT 36.2C Normal [facility] pCO2 BldV 49.5mmHg Normal [id number] - [facility] SaO2 % BldV 88% Normal - [facility] Potassium BldV-sCnc 4.3mmol/L Normal [id number] 3.5 - 5.1 [facility] Sodium BldV-sCnc 133mmol/L Below low normal [id number] 135 - 145 [facility] HCO3 BldV-sCnc 25.6mmol/L Normal - C [facility] Brandi index Bld+IhG-Rto 50% Normal - [facility] pH BldV 7.32 Below low normal 7.35 - 7.45 [facility] PO2 Temp Corrected Venous, POCT 56mmHg Normal - [facility] Glucose BldV-mCnc 143mg/dL Normal 70 - 199 [facility] Lg Platelets Bld Ql Auto Platelets Appear Decreased Normal [facility] Hypochromia Present Occasional Normal [facility] Microcytes Present Occasional Normal [facility] Lymphocytes # Bld Manual 8.8K/mcL Above high normal 1 - 3.2 [facility] Neuts Seg/leuk NFr Bld Manual 12% Below low normal 44 - 74 [facility] Neuts Seg # Bld Manual 1.2K/mcL Below low normal 1.8 - 7.8 [facility] Lymphocytes/leuk NFr Bld Manual 88% Above high normal 20 - 48 [facility] MCV RBC Auto 95.4FL Normal 78 - 100 [facility] RBC # Bld Auto 2.68M/mcL Below low normal 4.7 - 6 [facility] WBC # Bld Auto 10K/mcL Normal 4 - 10.5 CT _[facility] RDW RBC Auto-Rto 20.3% Above high normal 12.1 - 17.7 [facility] Hct VFr Bld Auto 25.5% Below low normal 40 - 54 [facility] Platelet # Bld Auto 61K/mcL Below low normal 150 - 450 [facility] PMV Bld Auto 7FL Below low normal 7.4 - 1 1.4 [facility] Hgb Bld-mCnc 8.8g/dL Below low normal 13.5 - 18 [facility] MCH RBC Qn Auto 33pcg Normal 25 - 33 C T_[facility] MCHC RBC Auto-mCnc 34.6g/dL Normal 32 - 36 [facility] Rh Bld Positive Normal [facility] Bld gp Ab Scn SerPl Ql Negative Normal [id number] [facility] ABO Group Bld A Normal [id number] CT_ [facility] Specimen source Fld Synovial Normal [facility] Color Fld Red Normal [facility] Clarity Fld Cloudy Normal [facility] RBC # Fld Auto 695702/mm3 Above high normal [id number] 0 - 1 [facility] WBC # Fld Auto 710/mm3 Above high normal [id number] - 15 0 [facility] Neutrophils/leuk NFr Fld Manual 11% Normal - 25 [facility] Lymphocytes/leuk NFr Fld Manual 83% Above high normal - [facility] Basophils/leuk NFr Fld Manual 1% Above high normal [id number] 0 - 0 [facility] Monos+Macros/leuk NFr Fld 3% Normal - 70 [facility] Eosinophil/leuk NFr Fld Manual 2% Above high normal [id number] 0 - 0 [facility] HGB BLD MCNC 9g/dL Below low normal 346063853028 13.5 - 18 [facility] HCT VFR BLD AUTO 26.4% Below low normal [id number] 40 - 54 [facility] HGB BLD MCNC 8.5g/dL Below low normal [id number] 13.5 - 18 [facility] HCT VFR BLD AUTO 24.3% Below low normal [id number] 40 - 54 [facility] TRANS NUM UNITS PACKED RBC Normal [id number] [facility] BLOOD BANK CMNT PATIENT-IMP Normal [id number] [facility] ABO+RH GP BLD Normal [id number] [facility]TT [facility] BLD GP AB SCN SERPL QL Normal [id number] [facility] CREAT SERPL MCNC 0.6mg/dL Below low normal [id number] 0.7 - 1.3 [facility] Glomerular filtration rate/1.73 sq M. predicted 101 Normal [id number] 60 - [facility] HGB BLD MCNC 7.5g/dL Below low normal [id number] 13.5 - 18 [facility] HCT VFR BLD AUTO 21.6% Below low normal [id number] 40 - 54 [facility] VANCOMYCIN TROUGH SERPL MCNC 17.7mcg/mL Normal [id number] 10 - 20 [facility] CREAT SERPL MCNC 0.6mg/dL Below low normal [id number] 0.7 - 1.3 [facility] Glomerular filtration rate/1.73 sq M. predicted 101 Normal [id number] 60 - [facility] VANCOMYCIN TROUGH SERPL MCNC 18.4mcg/mL Normal [id number] 10 - 20 [facility] HGB BLD MCNC 8.3g/dL Below low normal 13.5 - 18 [facility] HCT VFR BLD AUTO 24.3% Below low normal [id number] 40 - 54 [facility] VANCOMYCIN TROUGH SERPL MCNC 2.3mcg/mL Below low normal 275098287565 - [facility] HGB BLD MCNC 8.4g/dL Below low normal [id number] 13.5 - 18 [facility] HCT VFR BLD AUTO 24% Below low normal [id number] 40 - 54 [facility] HGB BLD MCNC 8g/dL Below low normal [id number] 13.5 - 18 [facility] HCT VFR BLD AUTO 23.1% Below low normal [id number] 40 - 54 [facility] TRANS NUM UNITS PACKED RBC Normal [id number] [facility] CREAT SERPL MCNC 0.7mg/dL Normal [id number] 0.7 - 1.3 [facility] Glomerular filtration rate/1.73 sq M. predicted 97 Normal [id number] 60 - [facility] VANCOMYCIN TROUGH SERPL MCNC 11.9mcg/mL Normal [id number] 10 - 20 [facility] VANCOMYCIN TROUGH SERPL MCNC 74.2mcg/mL Above high normal [id number] 10 - 20 [facility] HGB BLD MCNC 6.9g/dL Below low normal [id number] 13.5 - 18 [facility] HCT VFR BLD AUTO 20.1% Below low normal [id number] 40 - 54 [facility] VANCOMYCIN TROUGH SERPL MCNC 8.1mcg/mL Below low normal [id number] 10 - 20 [facility] HGB BLD MCNC 8g/dL Below low normal [id number] 13.5 - 18 [facility] HCT VFR BLD AUTO 22.9% Below low normal [id number] 40 - 54 [facility] TRANS NUM UNITS PACKED RBC Normal [id number] [facility] HGB BLD MCNC 8.9g/dL Below low normal [id number] 13.5 - 18 [facility] HCT VFR BLD AUTO 26.3% Below low normal [id number] 40 - 54 [facility]-IMP Normal [facility] ABO+RH GP BLD Normal [id number] CTT [facility] BLD GP AB SCN SERPL QL Normal [id number] [facility] TRANS NUM UNITS PACKED RBC Normal [id number] [facility] POLYS NFR SNV MANUAL 99% Normal [id number] [facility] MONONUC CELLS NFR SNV MANUAL 1% Normal [id number] [facility] UNIDENT CELLS NFR SNV 0/100WBC Normal [id number] [facility] SYNOVIOCYTES NFR SNV 0/100WBC Normal [id number] [facility] NUCLEATED CELLS NO. SNV MANUAL 56321/UL Normal [id number] [facility] RBC NO. SNV MANUAL 977429/UL Normal [id number] [facility] History of Medication Use Medication Directions Dispensed Refills Start Date End Date Stat predniSONE (DELTASONE) 10 mg tablet Take 6 [...] 2 tablets (20 mg total) 1 (one) ti 10/20/2024 active traMADoL (ULTRAM) 50 mg tablet Take 1 tablet (50 mg total) by mouth every 6 hours as needed. 05/24/2024 4 aborted mineral oil enema 133 mL 133 mL, rectal, Once, On Fri09/24/24 at 1115, For 1 dose 09/24/2024 5 completed sodium chloride 0.9 % flush 10 mL 10 mL, intravenous, Once, On Fri09/22/24 at 1700, For 1 dose 09/20/2024 5 completed dexAMETHasone (DECADRON) tablet 8 mg 8 mg, oral, Once, On Fri09/15/24 at 0800, For 1 dose, Phase II/On Unit, For 1 dose post-op. POD#1 in the morning. Hold for patients with the following procedures: I&D with or without poly exchange, resection arthroplasty, removal of prosthesis. 09/15/2024 5 completed iopamidoL (ISOVUE-370) 370 mg iodine /mL (76 %) injection 125 mL 125 mL, intravenous, Once in imaging, Starting on Fri09/20/24 at 1553, For 1 dose 09/20/2024 5 completed metoclopramide (REGLAN) injection 10 mg 10 mg, intravenous, Every 6 hours PRN, nausea, vomiting, Starting on Fri09/14/24 at 0948, Recovery & On Unit, To be given if zofran is ineffective Doses LESS than or equal to 10 mg can be given IV push undiluted over 1 minute 09/14/2024 active HYDROmorphone (DILAUDID) injection 0.5 mg 0.5 mg, intravenous, Every 4 hours PRN, severe pain, Pain scale 7-10, Starting on Fri09/14/24 at 0948, Recovery & On Unit 09/14/2024 5 active meloxicam (MOBIC) tablet 15 mg 15 mg, oral, Once, On Fri09/14/24 at 0545, For 1 dose, Preprocedure, Do not give for patients >80 y.o. or eCrCl <15mL/min <75yo: dose 15mg 75-80yo: dose 7.5mg >80 = no meloxicam 09/14/2024 5 completed cefadroxil 500 mg capsule Take 1 capsule (500 mg total) by mouth 2 (two) times a day with meals. 09/19/2024 aborted oxyCODONE (ROXICODONE) immediate release tablet 10 mg 10 mg, oral, Every 4 hours PRN, moderate pain, Pain scale 4-6, Starting on Fri09/14/24 at 0948, Recovery & On Unit 09/14/2024 active bisacodyL (DULCOLAX) suppository 10 mg 10 mg, rectal, Daily PRN, constipation, Starting on Fri09/15/24 at 0000, Phase II/On Unit, Hold for patients with history of IBS, IBO, ileostomy 09/15/2024 active magnesium hydroxide (MILK OF MAGNESIA) 400 mg/5 mL suspension 30 mL 30 mL, oral, Daily PRN, constipation, Starting on Fri09/14/24 at 0658, Phase II/On Unit, Hold for patients with history of IBS, IBO, ileostomy 09/14/2024 active sodium chloride 0.9 % infusion 100 mL/hr, intravenous, Once, On Fri09/18/24 at 1515, For 1 dose 09/18/2024 completed benzocaine-menthoL (CEPACOL SORE THROAT) 15-3.6 mg lozenge 1 lozenge 1 lozenge, Mouth/Throat, Every 2 hours PRN, sore throat, Starting on Fri09/14/24 at 0658, Phase II/On Unit 09/14/2024 active sodium phosphate (FLEET) enema 133 mL 133 mL, rectal, Once, On Fri09/24/24 at 1415, For 1 dose 09/24/2024 completed ondansetron (PF) (ZOFRAN) injection 4 mg 4 mg, intravenous, Every 6 hours PRN, nausea, vomiting, Starting on Fri09/14/24 at 0948, Recovery & On Unit, To be given first 09/14/2024 active methocarbamoL (ROBAXIN) 750 mg tablet Take 1 tablet (750 mg total) by mouth every 6 (six) hours if needed for muscle spasms. 09/14/2024 active cefTRIAXone (ROCEPHIN) 2 g in sterile water 20 mL IV syringe 2 g, intravenous, at 400 mL/hr, Administer over 3 Minutes, Every 24 hours, First dose (after last reorder) on 09/25/24 at 0930, For 5 days, Do not administer simultaneously with any calcium containing solutions via a Y-site in any patient., Indication: Bone/Joint 09/14/2024 5 active naproxen sodium (ANAPROX) 220 mg tablet Take 1 tablet (220 mg total) by mouth. 4 aborted oxyCODONE (ROXICODONE) 5 mg immediate release tablet Take 1 tablet (5 mg total) by mouth every 4 (four) hours if needed (pain). Max Daily Amount: 30 mg 09/14/2024 5 active sodium chloride 0.9 % infusion 42 mL/hr, intravenous, As needed, pre-, and post- transfusion as needed for line flush purposes, in conjunction with blood product transfusion only, Starting on [place] 09/23/24 at 1537, -Use only the amount required from a 250 mL bag of NS to adequately flush -A new NS bag is required with each new unit 09/23/2024 active atorvastatin (LIPITOR) 40 MG tablet TAKE 1 TABLET BY MOUTH EVERY DAY 02/13/2023 4 active senna-docusate (PERICOLACE) 8.6-50 MG Take 1 tablet by mouth daily as needed. active Naproxen Sodium (ALEVE PO) Take by mouth daily as needed. active carvedilol (COREG) 6.25 MG tablet TAKE 1 TABLET BY MOUTH TWICE A DAY WITH MEALS 09/11/2021 4 active Cobalamin Combinations (Vitamin G39-Aloxy Acid) 500-400 MCG TABS Take by mouth daily. 12/29/2023 active methocarbamol (ROBAXIN) 750 MG tablet Take 1 tablet (750 mg total) by mouth 4 (four) times a day as needed. 05/24/2024 active methocarbamoL (ROBAXIN) 750 mg tablet Take 1 tablet (750 mg total) by mouth every 6 (six) hours as needed. 06/12/2024 5 aborted acetaminophen (TYLENOL EXTRA STRENGTH) 500 MG tablet Take 1 tablet (500 mg total) by mouth every 6 (six) hours as needed. active bisacodyl (DULCOLAX) 5 MG EC tablet Take 1 tablet (5 mg total) by mouth daily as needed. active carvedilol (COREG) 6.25 MG tablet Take 1 tablet (6.25 mg total) by mouth 2 (two) times a day with meals. 03/13/2023 active carvedilol (COREG) 6.25 MG tablet TAKE 1 TABLET BY MOUTH TWICE A DAY WITH MEALS 07/29/2022 active losartan (COZAAR) 100 MG tablet TAKE 1 TABLET BY MOUTH EVERY DAY 04/12/2022 4 active Melatonin 1 MG Chew Tab Chew. active sodium chloride 0.9 % intravenous solution 50 mL 50 mL, intravenous, Once in imaging, Starting on Fri09/22/24 at 1640, For 1 dose 09/20/2024 5 completed acetaminophen (TYLENOL) 500 MG tablet Take 1 tablet (500 mg total) by mouth 4 times daily (every 6 hours) as needed. active bisacodyL (DULCOLAX) 5 mg EC tablet Take 1 tablet (5 mg total) by mouth 1 (one) time each day in the evening. active losartan (COZAAR) 100 MG tablet Take 1 tablet (100 mg total) by mouth daily. 02/20/2021 active multivitamin tablet Take 1 tablet by mouth 1 (one) time each day. 4 active cyanocobalamin (VITAMIN B-12) 100 mcg tablet 1 (one) time each day. active vitamin B-12 (CYANOCOBALAMIN) 100 MCG tablet Take 0.5 tablets (50 mcg total) by mouth daily. 4 active atorvastatin (LIPITOR) tablet 40 mg Take 1 tablet (40 mg total) by mouth daily. 08/09/2020 active aspirin EC 81 MG tablet Take 1 tablet (81 mg total) by mouth daily. 4 aborted amLODIPine (NORVASC) 10 mg tablet Take 1 tablet (10 mg total) by mouth 1 (one) time each day in the evening. 01/13/2024 active lactated Ringer's infusion 100 mL/hr, intravenous, Continuous, Starting on Fri09/14/24 at 1015, Recovery & On Unit 09/14/2024 5 aborted traMADol (ULTRAM) 50 MG tablet Take 50 mg by mouth every 6 (six) hours as needed. 05/24/2024 active aluminum-magnesium hydroxide-simethico ne (MAALOX) 200-200-20 mg/5 mL suspension 30 mL 30 mL, oral, Every 6 hours PRN, indigestion, Starting on Fri09/14/24 at 0658, Phase II/On Unit 09/14/2024 active polyethylene glycol (miraLAx) 17 GM/SCOOP powder Take 17 g by mouth daily. active bisacodyl (DULCOLAX) 5 MG EC tablet Take 1 tablet (5 mg total) by mouth daily as needed. active cyanocobalamin 100 MCG tablet Take 0.5 tablets (50 mcg total) by mouth. 4 active carvediloL (COREG) 6.25 mg tablet Take 1 tablet (6.25 mg total) by mouth 2 (two) times a day with meals. 03/13/2023 active amLODIPine (NORVASC) tablet 10 mg TAKE 1 TABLET BY MOUTH EVERY DAY 05/24/2024 active Melatonin 1 MG CHEW Chew by mouth every evening. active SUMAtriptan (IMITREX) 50 MG tablet TAKE 1 TABLET BY MOUTH NEEDED FOR HEADACHE. MAY REPEAT DOSE AFTER TWO HOURS IF NEEDED. 03/27/2022 3 aborted cetirizine (ZyrTEC) 10 MG tablet Take 1 tablet (10 mg total) by mouth daily. 3 active amLODIPine (NORVASC) 10 MG tablet Take 1 tablet (10 mg total) by mouth daily. active atorvastatin (LIPITOR) 40 mg tablet Take 1 tablet (40 mg total) by mouth 1 (one) time each day. 08/09/2020 active docusate sodium (COLACE) 100 mg capsule Take 1 capsule (100 mg total) by mouth 1 (one) time each day in the evening. active bacitracin 500 UNIT/GM ointment APPLY TOPICALLY TO THE AFFECTED AREA 3 TIMES A DAY FOR 7 DAYS. 03/02/2023 4 active losartan (COZAAR) 100 MG tablet Take 1 tablet (100 mg total) by mouth daily. 02/20/2021 active acetaminophen (TYLENOL) 500 mg tablet Take 1 tablet (500 mg total) by mouth every 6 hours as needed. active calcium carbonate (TUMS) chewable tablet 500 mg 500 mg, oral, Every 4 hours PRN, heartburn, indigestion, Starting on Fri09/14/24 at 0658, Phase II/On Unit, Ordered as calcium carbonate. 500 mg calcium carbonate = 200 mg elemental calcium. 09/14/2024 active Docusate Sodium (DSS) 100 MG CAPS Take 100 mg by mouth daily as needed. active senna-docusate (PERICOLACE) 8.6-50 mg per tablet Take 1 tablet by mouth 2 (two) times a day. 09/14/2024 5 aborted fexofenadine (LILIANA) 180 MG tablet Take 1 tablet (180 mg total) by mouth daily. Administer with water only; do not administer with fruit juices. active oxyCODONE (ROXICODONE) 5 mg immediate release tablet Take 1 tablet (5 mg total) by mouth every 4 (four) hours as needed for pain. 06/12/2024 5 aborted atorvastatin (LIPITOR) 40 MG tablet Take 1 tablet (40 mg total) by mouth daily. 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 active ProblemAct [facility] Infrarenal abdominal aortic aneurysm (AAA) without rupture active ProblemAct [facility] Coronary artery 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 active ProblemAct CTTHSFRAN Head and neck cancer active ProblemAct [facility] Enlarged testicle active ProblemAct [facility] Recurrent squamous cell carcinoma of skin active ProblemAct CTTHSFRAN Hyperlipidemia active ProblemAct [facility] Essential hypertension active ProblemAct CTTHSFRAN CLL (chronic lymphocytic leukemia) ([facility]) active EncounterDiagnosisAct CTT HNEMG Skin cancer of face active EncounterDiagnosisAc t CTTHNEMG S/P bilateral hip replacements active ProblemAct [facility] CLL (chronic lymphocytic leukemia) active ProblemAct [facility]SFRAN Mixed hyperlipidemia active EncounterDiagnosisA ct CTTHNEMG Presence of right artificial hip joint active EncounterDiagnosisAct CTTHSFRAN Coronary artery 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 active ProblemAct [facility]SFRAN S/P bilateral hip replacements active ProblemAct [facility]SFRAN Head and neck cancer active ProblemAct [facility] GI bleed active ProblemAct [facility] Prosthetic joint infection, subsequent encounter active EncounterDiagnosisAct [facility]_THS JARVIS Varicose veins of ankle active ProblemAct [facility]SFR[facility] Right shoulder pain active ProblemAct [facility] Hyponatremia active ProblemAct [facility] Squamous cell carcinoma in situ active ProblemAct [facility] Internal hemorrhoid, bleeding active ProblemAct [facility] Pure hypercholesterolemia active ProblemAct [facility] Delayed ejaculation active ProblemAct [facility] Primary hypertension active ProblemAct [facility] Chronic idiopathic constipation active EncounterDiagnosisAct CTTHNE MG Infection of prosthetic hip joint, initial encounter ([facility]) active EncounterDiagnosisAct CTT HNEMG Infrarenal abdominal aortic aneurysm (AAA) without rupture active ProblemAct [facility]_THSFRAN Essential hypertension active ProblemAct [facility] Recurrent squamous cell carcinoma of skin active ProblemAct [facility] Enlarged testicle active ProblemAct [facility]SFRAN Anemia active ProblemAct CT_THSFRA N Pure hypercholesterolemia active ProblemAct [facility]AN Delayed ejaculation active ProblemAct [facility] Squamous cell carcinoma in situ active ProblemAct [facility] Aneurysm active ProblemAct [facility] Prosthetic hip infection, initial encounter active ProblemAct [facility]_SAN Anemia, unspecified type active EncounterDiagno sisAct CTTHNEMG Varicose veins active ProblemAct [facility] Other hyperlipidemia active ProblemAct [facility] Coronary artery 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 active ProblemAct [facility] History of actinic keratoses [facility] Immun[facility] Vaccine Date Source Lot Number Status Zoster Live 12/16/2014 [facility]EN[facility] completed Hepatitis A-Hepatitis B Adul t (Twinrix) 18yo and older 12/08/2013 [facility] Influenza Quadravalent, 0.5m l (Fluzone High-dose) 65yo and older 06/27/2022 [id number]ose Influenza trivalent, 0.5mL ( Fluad) 65yo and older 05/21/2018 [facility] [id number] completed Influenza trivalent, 0.5mL ( Fluzone High-dose) 65yo and older 06/21/2016 [facility] [id number] comple jose [facility] SARS-CoV-2 COVID-19, mRNA, LNP-S, preservative free 08/06/2023 [facility] Influenza trivalent, with pr eservative (Fluzone; Afluria) 6mo and older 06/15/2013 [facility]_F[facility]LIX completed Tdap Tetanus diptheria acell ular pertussis (Boostrix; Adacel) 7yo and older 11/28/2008 [facility] Influenza trivalent, with pr eservative (Fluzone; Afluria) 6mo and older 06/09/2014 [facility]_SFRJENNYFER completed Pneumococcal conjugate 13 va lent (Prevnar 13, PCV13) 2mo and older 11/16/2015 [facility]_SFRJENNYFER [id number] complet ed Influenza trivalent, 0.5mL ( Fluzone High-dose) 65yo and older 06/26/2021 [facility]_SFRAN comple jose Pneumococcal polysaccharide 23 valent (Pneumovax 23) 2yo and older 04/02/2011 [facility]_S[facility]AN com pleted Influenza trivalent, 0.5mL ( Fluzone High-dose) 65yo and older 08/06/2023 [facility]_S[facility]AN comple jose Influenza trivalent, 0.5mL ( Fluzone High-dose) 65yo and older 06/02/2019 [facility] [id number] comple jose Influenza Quadravalent, 0.5m l (Fluad) 65yo and older 05/24/2020 [facility]_SFRAN [id number] completed Td Tetanus diptheria (Tdvax) 7yo and older 07/06/2019 CT_T HSFRAN [id number] completed Influenza trivalent, 0.5mL, preservative free (Fluarix; FluLaval; Fluzone) ages 6mo and older (Afluria) 3 years and older 07/01/2024 [facility]_SFRAN [id number] completed Influenza trivalent, 0.5mL ( Fluzone High-dose) 65yo and older 05/22/2017 CT_SFRAN [id number] comple jose Pneumococcal polysaccharide 23 valent (Pneumovax 23) 2yo and older 07/06/2019 [facility]_SFRAN [id number] com pleted Hepatitis A-Hepatitis B Adul t (Twinrix) 18yo and older 01/14/2014 [facility]_SFRAN completed COVID-19 (Pfizer/Comirnaty) 12yo and older 08/06/2023 CT_T HSFRAN [id number] completed Hepatitis A-Hepatitis B Adul t (Twinrix) 18yo and older 10/09/2012 [facility]_SFRAN completed Covid-19 mRNA Vaccine - Mode rna 0.25 mL Booster 01/09/2022 CCT [id number] completed Influenza Quadravalent, 0.5m l (Fluad) 65yo and older 07/11/2021 CT_SFRAN [id number] completed Td Tetanus diptheria (Tdvax) 7yo and older 01/04/1999 CT_T HSFRAN completed RSV, bivalent, protein subun it RSVpreF, 0.5mL, Preservative Free (Arexvy) 60yo and older 09/10/2023 CT_SFRAN [id number] completed Influenza trivalent, with pr eservative (Fluzone; Afluria) 6mo and older 07/01/2011 [facility]_THSFRAN completed Influenza Quadravalent, 0.5m l (Fluad) 65yo and older 08/06/2023 CT_SFRAN [id number] completed Hepatitis A-Hepatitis B Adul t (Twinrix) 18yo and older 03/15/2014 CT_SFRAN completed Encounters Encounter Type Encounter Reason Primary Diagnosis Location Date Ambulatory [facility] 12/01/2024 Ambulatory [facility] 10/19/2024 Inpatient Acquired absence of right hip joint Acquired absence of right hip joint [facility] 09/14/2024 Ambulatory Pain in right hip Pain in right hip [facility] 09/06/2024 Ambulatory Essential (primary) hypertension Essential (primary) hypertension [place] [facility] 08/26/2024 Ambulatory Encounter for other preprocedural examination Encounter for other preprocedural examination [facility] 08/25/2024 Ambulatory [facility] 07/14/2024 Inpatient Infection and inflammatory reaction due to other internal joint prosthesis, initial encounter Infection and inflammatory reaction due to other internal joint prosthesis, [place] [facility] [place] [facility] [place]24 Ambulatory Encounter for preprocedural cardiovascular examination Encounter for preprocedural cardiovascular examination [facility] 05/28/2024 Ambulatory Pain in right hip Pain in right hip [facility] [place]/24/2024 Ambulatory Essential (primary) hypertension Essential (primary) hypertension [facility] 12/26/2023 Ambulatory Essential (prima ry) hypertension [facility] 03/27/2023 Ambulatory Aneurysm of unspecified site [facility] 12/09/2022 Ambulatory Essential (prima ry) hypertension [facility] 10/04/2022 Ambulatory Atherosclerotic heart disease of diomede coronary artery without angina pectoris [facility] 04/29/2022 Ambulatory Atherosclerotic heart disease of diomede coronary artery without angina pectoris [facility] 04/12/2022 Ambulatory Atherosclerotic heart disease of diomede coronary artery without angina pectoris [facility] 09/11/2021 Care Team Organization Name Specialty Phone Email Start Date End Da te [facility] Aminata Moreno MD Primary Care 12/01/2024 [facility] RADHA SEBASTIAN [place] [facility] [place] [facility] [place] [facility] [place] [facility] 05/27/2024 [facility] [place] [facility]/27/2023 11/25[facility]19 [facility] Primary Care 03/27/2023 12/26/19 24 [facility] Primary [facility] 04/29/2022 11/24/2024 [place] [facility] In[facility] Primary Care 09/11/2021 04/12/2022
--- OUTSIDE RECORDS SUMMARY | 2024-12-20 18:42 | XMS_ITS | Clinical Summary ---
Author Organization [facility] Address [address] [place] [address] Phone Care Team Providers Care Cash Applications Coordinator Name Role Phone Aminata Moreno MD Primary [...] spacer 09/14/2024 Prosthetic hip infection, initial encounter ([facility] V24) 06/08/2024 Internal hemorrhoid, bleeding 09/10/2023 [...] Onc and Hem/onc. Head and neck cancer ([facility] V24, [facility] V28) 09/03/2022 Assessment & Plan (08/25/2024 12:48 PM EST): CT head and neck performed 08/18/2024: All negative for mass, metastatic disease, lymphadenopathy. Followed closely by radiation oncology. See note below. Infrarenal abdominal aortic aneurysm (AAA) without rupture ([facility] V24) 08/27/2022 Overview (08/17/2024): PET/CT TUMOR IMAGING SKULL BASE TO MID-THIGH ? 08/26/2022 Moderate calcified and sclerosis of the aortoiliac tree with fusiform infrarenal aneurysm measuring 3.1 cm Hyponatremia 11/12/2021 CLL (chronic lymphocytic gricel kemia) ([facility] V24, [facility] V28) 01/13/2019 Overview (05/21/2024): Dr Cotton Assessment [...] outpatient management. Coronary artery disease invo lving pilot point coronary artery of pilot point heart without angina pectoris 12/05/2017 Assessment & [...] Team Description 12/20/2024 Nurse Triage Adult Medicine [address] [phone] Aminata Moreno MD Constipation 12/13/2024 3:00 PM EDT Office Visit Adult [address] [phone] Aminata Moreno MD Medicare annual wellness visit, subsequent (Primary Dx); History of revision of total replacement of right hip joint; CLL (chronic lymphocytic leukemia) ([facility] V24, [facility] V28); Other iron deficiency anemia; Recurrent squamous cell carcinoma of skin 12/10/2024 2:00 PM EDT Office Visit Adult [address] [phone] Laura Rodriguez PA Bilateral impacted cerumen (Primary Dx) 12/07/2024 10:23 AM EDT - 12/07/2024 11:59 PM EDT Hospital Encounter [facility] Radiation Oncology [address] [place] [phone] Mimi Dawson NP Recurrent squamous cell carcinoma of skin (Primary Dx) Discharge Disposition: Home or Self Care 12/07/2024 Telephone Adult [address] [phone] Aminata Moreno MD Cerumen Impaction 12/02/2024 8:03 AM EDT - 12/02/2024 11:59 PM EDT Hospital Encounter [facility] Infusion Center [address] [place] [phone] Lamar Cotton MD CLL (chronic lymphocytic leukemia) ([facility] V24, [facility] V28) (Primary Dx) Discharge Disposition: Home or Self Care 12/01/2024 9:30 AM EDT Telemedicine Infectious Disease - [address] [place] [phone] Neelima Peoples MD Prosthetic joint infection, subsequent encounter (Primary Dx) 11/30/2024 Telephone [facility] Hematology Oncology [address] [place] [phone] Lamar Cotton MD 11/18/2024 Telephone [facility] Radiation Oncology [address] [place] [phone] Jenniffer Salazar MA 11/17/2024 9:58 AM EDT - 11/17/2024 11:59 PM EDT Hospital Encounter [facility] CT Scan [address] [place] [phone] Recurrent squamous cell carcinoma of skin Discharge Disposition: Home or Self Care 11/17/2024 9:57 AM EDT - 11/17/2024 11:59 PM EDT Hospital Encounter [facility] CT Scan [address] [place] [phone] Recurrent squamous cell carcinoma of skin Discharge Disposition: Home or Self Care 11/10/2024 11:45 AM EST Office Visit [facility] Hematology Oncology [address] [place] [phone] Lamar Cotton MD CLL (chronic lymphocytic leukemia) ([facility] V24, [facility] V28) (Primary Dx); S/P bilateral hip replacements; Anemia, unspecified type 11/03/2024 9:49 AM EST - 11/03/2024 11:59 PM EST Hospital Encounter [facility] [address] [place] [phone] Lamar Cotton MD CLL (chronic lymphocytic leukemia) ([facility] V24, [facility] V28) (Primary Dx) Discharge Disposition: Home or Self Care 10/28/2024 Telephone Infectious Disease - [place] [address] [place] [phone] Mackenzie Holloway MA 10/27/2024 11:45 AM EST Office Visit [facility] Hematology Oncology [address] [place] [phone] Lamar Cotton MD Other non-autoimmune hemolytic anemias ([facility] V24, [facility] V28) (Primary Dx); CLL (chronic lymphocytic leukemia) ([facility] V24, [facility] V28) 10/27/2024 9:48 AM EST - 10/27/2024 11:59 PM EST Hospital Encounter [facility] [address] [place] [phone] Lamar Cotton MD CLL (chronic lymphocytic leukemia) ([facility] V24, [facility] V28) (Primary Dx) Discharge Disposition: Home or Self Care 10/20/2024 10:15 AM EST Office Visit [facility] Hematology Oncology [address] [place] [phone] Lamar Cotton MD Anemia, unspecified type (Primary Dx); CLL (chronic lymphocytic leukemia) ([facility] V24, [facility] V28) 10/20/2024 9:21 AM EST - 10/20/2024 11:59 PM EST Hospital Encounter [address] [phone] Lamar Cotton MD Iron deficiency anemia due to chronic blood loss (Primary Dx); CLL (chronic lymphocytic leukemia) ([facility] V24, [facility] V28); Recurrent squamous cell carcinoma of skin Discharge Disposition: Home or Self Care 10/20/2024 Telephone [facility] Hematology Oncology [address] [place] [phone] Lamar Cotton MD 10/19/2024 10:00 AM EST Telemedicine Infectious Disease - [address] [place] [phone] Neelima Peoples MD Prosthetic joint infection, subsequent encounter (Primary Dx) 10/19/2024 Telephone [facility] Hematology Oncology [address] [place] [phone] Lamar Cotton MD 10/19/2024 Telephone [facility] [address] [place] [phone] Lamar Cotton MD 09/14/2024 5:12 AM EST - 09/26/2024 11:45 AM EST [id number] [address] [facility] [place] [phone] Babak Carrasquillo MD Ishtiaq, MD Luis [...] Site/Laterality Comments OTHER SURGICAL HISTORY Bilateral PROCEDURE: WA ARTHRP ACETBLR/PROX FEM PROSTC AGRFT/ALGRFT; COMMENT: bilateral CORONARY STENT PLACEMENT 2004 PROCEDURE: STENT, CORONARY, ELIZABET COLONOSCOPY 2008 [facility] PROCEDURE: HISTORICAL COLONOSCOPY; COMMENT: Incomplete OTHER SURGICAL HISTORY 03/06/2017 PROCEDURE: COLON CA SCRN NOT HI RSK IND; COMMENT: hemorrhoids; completed to hepatic flexure; repeat in 10 yrs. OTHER SURGICAL HISTORY 03/18/2017 PROCEDURE: RADIOLOGIC EXAM COLON SINGLE CONTRAST STUDY; COMMENT: diverticulosis, but study limited because of redundnat colon, and limited filling of ascending colon OTHER SURGICAL HISTORY 09/03/2022 Right PROCEDURE: HISTORY OTHER; COMMENT: [facility]- removal of growth - SCC on [...] HIP PROSTHESIS; Surgeon: Babak Carrasquillo MD; Location: [facility] Service: Orthopedics; Laterality: [...] hx of CLL (chronic lymphocytic gricel kemia) ([facility] V24, [facility] V28) 08/12/2024 IMPROVING Coronary artery disease invo lving pilot point coronary artery of pilot point heart without angina pectoris 12/05/2017 DX:Coronary artery disea se involving pilot point coronary artery of pilot point heart without angina pectoris Essential hypertension 12/05/2017 DX:Essent ial hypertension Pure hypercholesterolemia 12/05/2017 DX:Pur e hypercholesterolemia Osteoarthritis DX:Osteoarthriti s Chronic constipation DX:Chronic constipation GI (gastrointestinal bleed) D/T HEMORROIDS REQUIRED TRANSFUSION 07/2023 Hemorrhoid DX:Hemorrhoid Anemia DX:Anemia;COMMEN T:HX History of transfusion COMMENT:D /T HEMORROIDS 07/2023 Cancer ([facility] V24, [facility] V28) DX:Cancer (HCC);COMMENT:CLL- NO TX Skin cancer 2022 SCC FACE AND NEC K- GIOVANI, CHEMO, RAD TX Melanoma ([facility] V24, [facility] V28) 05/2022 DX:Melanoma (HCC) Family History Medical [...] Description 01/10/2025 9:00 AM EDT Office Visit [facility] Hematology Oncology [address] [place] [phone] Lamar Cotton MD [address] [place] [address] 03/16/2025 11:00 AM EDT Telemedicine Infectious Disease - [place] [address] [place] [phone] Neelima Peoples MD [address] [place], [place] [phone] Health Maintenance Due Date Last Done Comments [...] this topic Medical Devices Implanted Type Area Home Care Giver Device Identifier Shelf Expiration Date Model / Serial / Lot Sponge Surgifoam Gel 12 X 7mm - [id number] Implanted:Qty : 1 on 09/14/2024 by Babak Carrasquillo MD at [facility] Hemostasis Right: Hip [employer] [id number] 08/13/20261971 [id number] Screw Bone 6.5x35mm Trilogy - [id number] Implanted:Qty : 1 on 09/14/2024 by Babak Carrasquillo MD at [facility] Internal and External Fixation Right: Hip [employer] 03/30/2034 [id number] / / [id number] Screw Bone 6.5x40mm Trilogy - [id number] Implanted:Qty : 1 on 09/14/2024 by Babak Carrasquillo MD at [facility] Internal and External Fixation Right: Hip [employer] 10/31/2033 [id number] / / [id number] Screw Bone 6.5x25mm Trilogy - [id number] Implanted:Qty : 1 on 09/14/2024 by Babak Carrasquillo MD at [facility] Internal and External Fixation Right: Hip [employer] 03/23/2034 [id number] / / [id number] Screw Bone 6.5x20mm Trilogy - Sna - [id number] Implanted:Qty : 2 on 09/14/2024 by Babak Carrasquillo MD at [facility] Internal and External Fixation Right: Hip [employer] [id number] 02/25/2034 [id number] / NA / [id number] Screw Bone 6.5x20mm Trilogy - [id number] Implanted:Qty : 1 on 09/14/2024 by Babak Carrasquillo MD at [facility] Internal and External Fixation Right: Hip [employer] 03/02/2034 [id number] / / [id number] Screw Bone 6.5x20mm Trilogy - [id number] Implanted:Qty : 1 on 09/14/2024 by Babak Carrasquillo MD at [facility] Internal and External Fixation Right: Hip [employer] [id number] 12/29/2033 [id number] / / [id number] Screw Bone 6.5x40mm Trilogy - Sna - [id number] Implanted:Qty : 1 on 09/14/2024 by Babak Carrasquillo MD at [facility] Internal and External Fixation Right: Hip [employer] [id number] / NA / [id number] Hip Hd Constrn Frdm -6mm - [id number] Implanted:Qty : 1 on 09/14/2024 by Babak Carrasquillo MD at [facility] Joints Hip Right: Hip [employer] [id number] 06/16/2033-790198 / / [id number] Plate Pyridine Recovery Operator Troch Lg 210mm Vitallium W 2 2mm Cabl Stry-Howm 8255-4-265-36 3390 Implanted:Qty : 1 on 06/08/2024 by Babak Carrasquillo MD Right: Hip [employer] [id number] 02/19/2028 6704-3-093 / / [id number] Cable Slv Set D-M Bead 2.0mm Vit Med Stry-Howm 9838-3-860-11 4159 Implanted:Qty : 1 on 06/08/2024 by Babak Carrasquillo MD Right: Hip [employer] [id number] 11/17/2028 6704-0-510 / / [id number] Cable Slv Set D-M Bead 2.0mm Vit Med Stry-Howm 3717-0-655- 4159 Implanted:Qty : 1 on 06/08/2024 by Babak Carrasquillo MD Right: Hip [employer] [id number] 11/17/2028 6704-0-510 / / [id number] Cable Slv Set D-M Bead 2.0mm Vit Med Stry-Howm 5664-6-915- 4159 Implanted:Qty : 1 on 06/08/2024 by Babak Carrasquillo MD Right: Hip [employer] [id number] 11/17/2028 6704-0-510 / / [id number] Cement Bone Surg Simplex Radiopq Stry-How 1214-6-562-11 4092 Implanted:Qty : 1 on 06/08/2024 by Babak Carrasquillo MD Right: Hip [employer] [id number] 05/08/2026 6191-1-010 / / [id number] Cement Bone Surg Simplex Radiopq Stry-Howm 2684-0-283-11 4092 Implanted:Qty : 1 on 06/08/2024 by Babak Carrasquillo MD Right: Hip [employer] [id number] 05/08/2026 6191- / / [id number] Impl Set Bead 2.0mm Vit Brandt Theodorey-How 5249-5-960-11 4128 Implanted:Qty : 1 on 06/08/2024 by Babak Carrasquillo MD Right: Hip [employer] [id number] 01/19/2029 6704-0-520 / / [id number] Impl Set Bead 2.0mm Vit Brandt Kaminski-How 5164-6-558-11 4128 Implanted:Qty : 1 on 06/08/2024 by Babak Carrasquillo MD Right: Hip [employer] [id number] 01/19/2029 6704-0-520 / / [id number] Impl Set Bead 2.0mm Vit Brandt Kaminski-How 0214-7-208-11 4128 Implanted:Qty : 1 on 06/08/2024 by Babak Carrasquillo MD Right: Hip [employer] [id number] 01/09/2029 6704-0-520 / / [id number] Impl Set Bead 2.0mm Vit Brandt Theodorey-How 5248-8-818-11 4128 Implanted:Qty : 1 on 06/08/2024 by Babak Carrasquillo MD Right: Hip [employer] [id number] 01/09/2029 6704-0-520 / / [id number] Impl Set Bead 2.0mm Vit Brandt Theodorey-How 5909-8-010-11 4128 Implanted:Qty : 1 on 06/08/2024 by Babak Carrasquillo MD Right: Hip [employer] [id number] 10/06/2028 6704-0-520 / / [id number] Cable Slv Set D-M Bead 2.0mm Vit Med Stry-Howm 9710-2-588-11 4159 Implanted:Qty : 1 on 06/08/2024 by Babak Carrasquillo MD Right: Hip [employer] [id number] 11/17/2028 6704-0-510 / / [id number] Hammond Constrained Liner Neutral 36mm Size I Implanted:Qty : 1 on 09/14/2024 by Babak Carrasquillo MD at [facility] Right: Hip [employer] 03/20/2027 [id number] / [id number] / [id number] Implant Record G7 Osseoti Multihole 68mm Implanted:Qty : 1 on 09/14/2024 by Babak Carrasquillo MD at [facility] Right: Hip [employer] 04/04/2026 [id number] / NA / [id number] Implant Record Tatianna Con Sz A Std 50mm Implanted:Qty : 1 on 09/14/2024 by Babak Carrasquillo MD at [facility] Right: Hip [employer] [id number] 09/19/2031-540272 / NA / [id number] Implant Record Implanted:Qty : 1 on 09/14/2024 by Babak Carrasquillo MD at [facility] Right: Hip [employer] [id number] 11/13/2033391640 / NA / [id number] Explanted Type Area Home Care Giver Device Identifier Shelf Expiration Date Model / Serial / Lot Bone Cement Explanted:Qty : 2 on 09/14/2024 by Babak Carrasquillo MD at [facility] Bone Cement Right: Hip [employer] 09/15/2024 000 / 000 / 000 Procedures Procedure Name Priority Date/Time Associated Diagnosis Comments CBC WITH AUTO DIFFERENTIAL Routine 12/14/2024 1:34 PM EDT CLL (chronic lymphocytic leukemia) ([facility] V24, [facility] V28) Anemia, unspecified type TYPE AND SCREEN Routine 12/14/2024 1:34 PM EDT Iron deficiency anemia due to chronic blood loss Recurrent squamous cell carcinoma of skin COMPREHENSIVE METABOLIC PANEL Routine 12/14/2024 1:34 PM EDT CLL (chronic lymphocytic leukemia) (CMS/HCC V24, CMS/HCC V28) Anemia, unspecified type HAPTOGLOBIN Routine 12/14/2024 1:34 PM EDT CLL (chronic lymphocytic leukemia) (CMS/HCC V24, [facility] V28) Anemia, unspecified type CBC AND DIFFERENTIAL Routine 12/14/2024 1:34 PM EDT CLL (chronic lymphocytic leukemia) ([facility] V24, [facility]/HCC V28) Anemia, unspecified type WA REMOVAL CERUMEN IMPACTED IRRIGATION/LAVAGE UNILATERAL Routine 12/10/2024 [...] 10:55 AM EDT CLL (chronic lymphocytic leukemia) ([facility] V24, [facility]/HCC V28) Anemia, unspecified type HAPTOGLOBIN Routine 12/07/2024 10:55 AM EDT CLL (chronic lymphocytic leukemia) ([facility] V24, [facility]/HCC V28) Anemia, unspecified type CBC AND DIFFERENTIAL Routine 12/07/2024 10:55 AM EDT CLL (chronic lymphocytic leukemia) ([facility] V24, [facility]/HCC V28) Anemia, unspecified type TRANSFUSE RED BLOOD CELLS Routine 12/02/2024 11:50 AM EDT CLL (chronic lymphocytic leukemia) (CMS/HCC V24, CMS/HCC V28) TRANSFUSE RED BLOOD CELLS Routine 12/02/2024 9:09 AM EDT CLL (chronic lymphocytic leukemia) (CMS/HCC V24, [facility] V28) PREPARE RBC STAT 12/02/2024 8:16 AM [...] 11:20 AM EST CLL (chronic lymphocytic leukemia) ([facility] V24, [facility] V28) Anemia, unspecified type HAPTOGLOBIN Routine 11/09/2024 11:20 AM EST CLL (chronic lymphocytic leukemia) ([facility] V24, [facility] V28) Anemia, unspecified type LACTATE DEHYDROGENASE Routine 11/09/2024 11:20 AM EST CLL (chronic lymphocytic leukemia) ([facility] V24, [facility] V28) BETA 2 MICROGLOBULIN, SERUM Routine 11/09/2024 11:20 AM EST CLL (chronic lymphocytic leukemia) ([facility] V24, [facility] V28) TRANSFUSE RED BLOOD CELLS Routine 11/03/2024 12:47 PM EST CLL (chronic lymphocytic leukemia) ([facility] V24, [facility] V28) PREPARE RBC STAT 11/03/2024 9:54 AM EST CLL (chronic lymphocytic leukemia) ([facility] V24, [facility] V28) CBC WITH AUTO DIFFERENTIAL Routine 11/02/2024 [...] 11:27 AM EST CLL (chronic lymphocytic leukemia) ([facility] V24, [facility] V28) Anemia, unspecified type HAPTOGLOBIN Routine 11/02/2024 11:27 AM EST CLL (chronic lymphocytic leukemia) ([facility] V24, [facility] V28) Anemia, unspecified type TRANSFUSE RED BLOOD CELLS Routine 10/27/2024 1:13 PM EST CLL (chronic lymphocytic leukemia) ([facility] V24, [facility] V28) TRANSFUSE RED BLOOD CELLS Routine 10/27/2024 10:36 AM EST CLL (chronic lymphocytic leukemia) ([facility] V24, [facility] V28) PREPARE RBC STAT 10/26/2024 2:26 PM EST CLL (chronic lymphocytic leukemia) ([facility] V24, [facility] V28) MANUAL DIFFERENTIAL - SYSMEX WAM Routine [...] 10:24 AM EST CLL (chronic lymphocytic leukemia) ([facility] V24, [facility] V28) Anemia, unspecified type HAPTOGLOBIN Routine 10/26/2024 10:24 AM EST CLL (chronic lymphocytic leukemia) ([facility] V24, [facility] V28) Anemia, unspecified type TRANSFUSE RED BLOOD CELLS Routine 10/20/2024 12:46 PM EST CLL (chronic lymphocytic leukemia) ([facility] V24, [facility] V28) PREPARE RBC STAT 10/20/2024 11:09 AM EST CLL (chronic lymphocytic leukemia) ([facility] V24, [facility] V28) RETICULOCYTE COUNT STAT 10/20/2024 9: 55 AM EST CLL (chronic lymphocytic leukemia) ([facility] V24, [facility] V28) HAPTOGLOBIN STAT 10/20/2024 9:55 AM EST CLL (chronic lymphocytic leukemia) ([facility] V24, [facility] V28) TYPE AND SCREEN STAT 10/20/2024 9:55 AM EST Iron deficiency anemia due to chronic blood loss CLL (chronic lymphocytic leukemia) ([facility] V24, [facility] V28) DIRECT ANTIGLOBULIN TEST Add-On 10/20/2024 9:54 AM EST HEPATIC FUNCTION PANEL Routine 3:43 PM EST CLL (chronic lymphocytic leukemia) ([facility] V24, [facility] V28) CBC WITH AUTO DIFFERENTIAL Routine 10/19/2024 3:25 PM EST CLL (chronic lymphocytic leukemia) ([facility] V24, [facility] V28) VITAMIN B12 AND FOLATE Routine 3:25 PM EST CLL (chronic lymphocytic leukemia) ([facility] V24, [facility] V28) IRON AND TIBC Routine 10/19/2024 3:25 PM EST CLL (chronic lymphocytic leukemia) ([facility] V24, [facility] V28) FERRITIN Routine 10/19/2024 3:25 PM EST CLL (chronic lymphocytic leukemia) ([facility] V24, [facility] V28) BETA 2 MICROGLOBULIN, SERUM Routine 10/19/2024 3:25 PM EST CLL (chronic lymphocytic leukemia) ([facility] V24, [facility] V28) LACTATE DEHYDROGENASE Routine 10/19/2024 3:25 PM EST CLL (chronic lymphocytic leukemia) ([facility] V24, [facility] V28) COMPREHENSIVE METABOLIC PANEL Routine 10/19/2024 3:25 PM EST CLL (chronic lymphocytic leukemia) ([facility] V24, [facility] V28) CBC AND DIFFERENTIAL Routine 10/19/2024 3:25 PM EST CLL (chronic lymphocytic leukemia) ([facility] V24, [facility] V28) BILIRUBIN, DIRECT Routine 09/26/2024 6:5 9 [...] LAB HEMETOLOGY METHOD 12/14/2024 6:15 PM EDT [facility] RBC 3.20(L) 4.50 - 5.50 M/mcL LAB HEMETOLOGY METHOD 12/14/2024 6:15 PM EDT [facility] Hemoglobin 10.3(L) 13.5 - 17.5 g/dL LAB [facility] 32.9(L) 42.0 - 54.0 % LAB HEMETOLOGY METHOD [facility] MCV 102.8(H) 79.0 - 98.0 FL LAB HEMETOLOGY METHOD 12/14/2024 6:15 PM EDT [facility] MCH 32.2(H) 27.0 - 32.0 pcg LAB [facility]EM[facility] MCHC 31.3(L) 32.0 - 37.0 g/dL LAB HEMETOLOGY METHOD 12/14/2024 6:[facility] PM [facility] RDW 18.6(H) 11.0 - 15.0 % LAB HEMETOLOGY METHOD 12/14/2024 6:15 PM EDT [facility] Platelets 200 130 - 400 K/mcL LAB HEMETOLOGY METHOD 12/14/2024 6:15 PM EDT [facility] MPV 9.3 7.0 - 11.0 FL LAB HEMETOLOGY METHOD [facility]/14[facility]24 [facility] NRBC 0.0 <1.0 % LAB HEMETOLOGY METHOD 12/14/2024 6:15 PM EDT [facility] NRBC Absolute 0.00 <0.10 K/mcL [...] LAB HEMETOLOGY METHOD 12/14/2024 6:15 PM EDT [facility] Comment:This is an appended report. These results have been appended to a previously preliminary verified report. Monocytes Absolute 0.17(L) 0.20 - 1.00 K/mcL LAB HEMETOLOGY METHOD 12/14/2024 6:15 PM EDT [facility] Comment:This is an appended report. These results have been appended to a previously preliminary verified report. Eosinophils Absolute 0.06 0.00 - 0.50 K/mcL LAB HEMETOLOGY METHOD 12/14/2024 6:15 PM EDT [facility] Comment:This is an appended report. These results have been appended to a previously preliminary verified report. Basophils Absolute 0.03 0.00 - 0.20 K/[facility] 12/14/2024 6:15 PM EDT [facility] Comment:This is an appended report. These results have been appended to a previously preliminary verified report. Immature Granulocytes Absolute 0.05(H) 0.00 - 0.03 K/mcL LAB HEMETOLOGY METHOD 12/14/2024 6:15 PM EDT [facility] Comment:This is an appended report. These results have been appended to a previously preliminary verified report. Blood Venous blood specimen / Unknown Venipuncture / Unknown 12/14/2024 1:34 PM EDT 12/14/2024 4:43 PM EDT us Lamar Cotton MD LAB BLOOD ORDERABLES Final R esult [facility] [address] [place] [address], * Type and screen (12/14/2024 1:34 PM EDT) Only the most recent of11 resultswithin the time period is included. ABO Group A 12/15/2024 8:57 AM EDT [facility] Rh Type Positive 12/15/2024 8:57 AM EDT [facility] Antibody Screen Negative 12/15/2024 8:57 AM EDT [facility] Blood Venous blood specimen / Unknown Venipuncture / Unknown 12/14/2024 1:34 PM EDT 12/14/2024 4:42 PM EDT Lamar Cotton MD LAB BLOOD BANK TEST ORDERABL ES Final Result Performing Organization Address City/[facility] Co de Phone Number [facility] [address] [place] [address], [place] [phone] * (ABNORMAL) Haptoglobin (12/14/2024 1:34 PM EDT) Only the most recent of10 resultswithin the time period is included. Haptoglobin <8(L) 16 - 200 mg/dL LAB CHEMISTRY METHOD 12/14/2024 5:45 PM EDT [facility] Blood Venous blood specimen / Unknown Venipuncture / Unknown 12/14/2024 1:34 PM EDT 12/14/2024 4:42 PM EDT Lamar Cotton MD LAB BLOOD ORDERABLES Final R esult Performing Organization Address [facility]/ZIP Co de Phone Number [facility] [address] [place] [address], [place] [phone] * (ABNORMAL) Comprehensive metabolic panel (12/14/2024 1:34 PM EDT) Only the most recent of13 resultswithin the time period is included. Sodium 132(L) 133 - 145 mmol/L LAB CHEMISTRY METHOD 12/14/2024 5:43 PM EDT [facility] Potassium 3.5 3.5 - 5.5 mmol/L LAB CHEMISTRY METHOD 12/14/2024 5:43 PM EDT [facility] Chloride 100 96 - 110 [...] LAB CHEMISTRY METHOD 12/14/2024 5:43 PM EDT [facility] Total Bilirubin 0.6 0.0 - 1.4 mg/dL LAB CHEMISTRY METHOD 12/14/2024 5:43 PM EDT [facility] Blood Venous blood specimen / Unknown Venipuncture / Unknown 12/14/2024 1:34 PM EDT 12/14/2024 4:42 PM EDT Lamar Ctoton MD LAB BLOOD ORDERABLES Final R esult [facility] [address] [place] [address], [place] [phone] * [place] REMOVAL CERUMEN IMPACTED IRRIGATION/LAVAGE UNILATERAL (12/10/2024 2:12 [...] LAB HEMETOLOGY METHOD 12/07/2024 1:54 PM EDT [facility] Lymphocytes % 81.0 % LAB HEMETOLOGY METHOD 12/07/2024 1:54 PM EDT [facility] Monocytes % 2.0 % LAB HEMETOLOGY METHOD 12/07/2024 1:54 PM EDT [facility] Eosinophils % 0.0 % LAB HEMETOLOGY METHOD [facility]/07[facility]2024 1:[facility] PM [facility] Basophils % 0.0 % LAB HEMETOLOGY METHOD 12/07/2024 1:54 PM EDT [facility] Neutrophils Absolute Manual 1.89 1.50 - 7.00 K/mcL LAB HEMETOLOGY METHOD 12/07/2024 1:54 PM [facility] Lymphocytes Absolute 8.99(H) 1.00 - 5.00 K/mcL LAB HEMETOLOGY METHOD 12/07/2024 1:54 PM [facility] Monocytes Absolute Manual 0.22 0.20 - 1.00 K/mcL LAB HEMETOLOGY METHOD 12/07/2024 1:54 PM EDT [facility] Eosinophils Absolute Manual 0.00 0.00 - 0.50 K/mcL LAB HEMETOLOGY METHOD 12/07/2024 1:54 PM EDT [facility] Basophils Absolute Manual 0.00 0.00 - 0.20 K/mcL LAB HEMETOLOGY METHOD 12/07/2024 1:54 PM [facility] Rbc Morphology Consistent with indices Consistent with indices, Normal for [place] LAB HEMETOLOGY METHOD 12/07/2024 1:54 PM EDT [facility] Platelet Morphology - WAM Normal Normal LAB HEMETOLOGY METHOD 12/07/2024 1:54 PM EDT [facility] Blood Venous blood specimen / Unknown Venipuncture / Unknown 12/07/2024 10:55 AM EDT 12/07/2024 11:28 AM EDT Lamar Cotton MD LAB BLOOD ORDERABLES Final R esult [facility] [address] [place] [address], [place] [phone] * Transfuse RBC (12/02/2024 2:20 PM EDT) Only the most recent of10 resultswithin the time period is included. Lamar Cotton MD BLOOD TRANSFUSION ORDERABLES Final Result * Prepare RBC: 2 Units (12/02/2024 8:16 AM EDT) Only the most recent of6 resultswithin the time period is included. Product Code [id number] 12/02/2024 11:49 AM EDT [facility] Unit Number [id number] 12/03/19 11:49 AM EDT [facility] Crossmatch Compatible 12/02/2024 8:19 AM EDT [facility] Dispense Status Transfused 12/02/2024 11:49 AM EDT [facility] Unit ABO Rh APOS 12/02/2024 11:49 AM [facility] Unit Expiration Date Time [id number] 12/02/2024 11:49 AM EDT [facility] Unit Blood Type 6200 12/02/2024 11:49 AM [facility] Product Code [id number] 12/02/2024 9:09 AM EDT [facility] Unit Number [id number] 12/03/19 9:09 AM EDT [facility] Crossmatch Compatible 12/02/2024 8:20 AM EDT [facility] Dispense Status Transfused 12/02/2024 9:09 AM EDT [facility] Unit ABO Rh APOS 12/02/2024 9:09 AM EDT [facility] Unit Expiration Date Time [id number] 12/02/2024 9:09 AM EDT [facility] Unit Blood Type 6200 12/02/2024 9:09 AM EDT [facility] Blood Venous blood specimen / Unknown 12/02/2024 8:16 AM EDT 11/30/2024 1:32 PM EDT us Lamar Cotton MD BLOOD BANK PRODUCT ORDERABLE S Final Result Performing Organization Address [facility]/ZIP Co de Phone Number [facility] [address] [place] [address], * (ABNORMAL) RBC morphology review (11/30/2024 12:51 PM EDT) Rbc Morphology Consistent with indices Consistent with indices, Normal for [place] LAB HEMETOLOGY METHOD 11/30/2024 2:12 PM EDT [facility] Platelet Morphology - WAM See Note(A) Normal LAB HEMETOLOGY METHOD 11/30/2024 2:12 PM EDT [facility] Comment:PLT: Normal Blood Venous blood specimen / Unknown Venipuncture / Unknown 11/30/2024 12:51 PM EDT 11/30/2024 1:34 PM EDT us Lamar Cotton MD LAB BLOOD ORDERABLES Final R esult [facility] [address] [place] [address], * CT Neck Soft Tissue w Contrast (11/17/2024 10:40 AM EDT) Anatomical Region Laterality Modality Head and Neck Computed Tomogra phy 11/17/2024 1:50 PM EDT Impressions 11/17/2024 1:59 PM EDT Impression: No evidence of recurrent mass or cervical lymphadenopathy. [place] ([id number]) -------- FINAL REPORT -------- Dictated By: Jailyn Ballesteros Dictated Date: 11/17/2024 13:50 ET Assigned Physician: Jailyn Ballesteros Reviewed and Electronically Signed By: Jailyn Ballesteros Signed Date: 11/17/2024 13:59 ET Workstation ID: [id number] Transcribed By: Self Edit Transcribed Date: 11/17/2024 13:50 ET Narrative 11/17/2024 1:59 PM EDT History: Skin carcinoma right cheek, with lymph nodes, status post radiation treatment. Surveillance. Comparison: 08/18/24, 12/22/23, 02/19/23 Technique: Helical volumetric imaging of the neck was performed during the uneventful intravenous administration of 90 cc Isovue-370. DLP: 397.83 mGy/cm [employer] VCT Iterative reconstruction technique Findings: Surgical clips [...] of 90 cc Isovue-370. DLP: 397.83 mGy/cm Clear Standards VCT Iterative reconstruction technique Findings: Surgical clips [...] recurrent mass or cervical lymphadenopathy. [place]ad PA ([id number]) -------- FINAL REPORT -------- Dictated By: Jailyn Ballesteros Dictated Date: 11/17/2024 13:50 ET Assigned Physician: Jailyn Ballesteros Reviewed and Electronically Signed By: Jailyn Ballesteros Signed Date: 11/17/2024 13:59 ET Workstation ID: [id number] Transcribed By: Self Edit Transcribed Date: 11/17/2024 13:50 ET us Mimi Dawson [employer] IMG CT PROCEDURES Fin al Result * [...] 3. No developing thoracic lymphadenopathy. [place]ad PA ([id number]) -------- FINAL REPORT -------- Dictated By: Jailyn Ballesteros Dictated Date: 11/17/2024 13:34 ET Assigned Physician: Jailyn Ballesteros Reviewed and Electronically Signed By: Jailyn Ballesteros Signed Date: 11/17/2024 13:49 ET Workstation ID: [id number] Transcribed By: Self Edit Transcribed Date: 11/17/2024 13:34 ET Narrative 11/17/2024 1:49 PM EDT History: Follow-up lung opacities noted on PET/CT. Personal history of squamous cell carcinoma of the face, status post radiation therapy. Comparison: 08/18/24, 04/14/24, 12/22/23, PET/CT 09/23/23 Technique: Helical volumetric imaging of the thorax was performed during the uneventful intravenous administration of 90 cc Isovue-370. DLP: 523.77 mGy/cm [employer] VCT Iterative reconstruction technique Findings: The trachea [...] of 90 cc Isovue-370. DLP: 523.77 mGy/cm [employer] VCT Iterative reconstruction technique Findings: The trachea [...] 3. No developing thoracic lymphadenopathy. [place] ([id number]) -------- FINAL REPORT -------- Dictated By: Jailyn Ballesteros Dictated Date: 11/17/2024 13:34 ET Assigned Physician: Jailyn Ballesteros Reviewed and Electronically Signed By: Jailyn Ballesteros Signed Date: 11/17/2024 13:49 ET Workstation ID: [id number] Transcribed By: Self Edit Transcribed Date: 11/17/2024 13:34 ET Mimi Dawson NP IMG CT PROCEDURES Fin al Result * (ABNORMAL) Lactate dehydrogenase (11/09/2024 11:20 AM EST) Only the most recent of6 resultswithin the time period is included. LDH 1,218(H) 120 - 246 unit/L LAB CHEMISTRY METHOD 11/09/2024 2:12 PM EST [facility]) [facility] Blood Venous blood specimen / Unknown Venipuncture / Unknown 11/09/2024 11:20 AM EST 11/09/2024 12:19 PM EST Lamar Cotton MD LAB BLOOD ORDERABLES Final R esult Performing Organization Address City/[facility]/ZIP Co de Phone Number [facility] [address] [place] [address], [place] [phone] * (ABNORMAL) Beta 2 microglobulin, serum (11/09/2024 11:20 AM EST) Only the most recent of2 resultswithin the time period is included. [facility] Beta-2 Microglobulin 2.9(H) 0.7 - 1.8 mg/L LAB CHEMISTRY METHOD 11/09/2024 2:12 PM [facility] Blood Venous blood specimen / Unknown Venipuncture / Unknown 11/09/2024 11:20 AM EST 11/09/2024 12:19 PM EST Lamar Cotton MD LAB BLOOD ORDERABLES Final R esult Performing Organization Address City/[facility]/ZIP Co de Phone Number [facility] [address] [place] [address], [place] [phone] * (ABNORMAL) Reticulocyte count (10/20/2024 9:55 AM EST) [facility] Retic Ct Abs 0.200(H) 0.030 - 0.090 M/mcL LAB HEMETOLOGY METHOD 10/20/2024 10:12 AM [facility] Retic Ct Pct 12.8(H) 0.7 - 1.7 % LAB HEMETOLOGY METHOD 10/20/2024 10:12 AM [facility] Immature Retic Fract 36.4(H) 2.3 - 15.9 % LAB HEMETOLOGY METHOD 10/20/2024 10:12 AM [facility] Reticulocyte Hemoglobin 32.9 >29.0 pcg LAB HEMETOLOGY METHOD 10/20/2024 10:12 AM [facility] Blood Venous blood specimen / Unknown Venipuncture / Unknown 10/20/2024 9:55 AM EST 10/20/2024 10:02 AM EST Lamar Cotton MD LAB BLOOD ORDERABLES Final R esult Performing Organization Address City/[facility]/ZIP Co de Phone Number [facility] [address] [place] [address], [place] [phone] * Direct antiglobulin test (10/20/2024 9:54 AM EST) [facility] BETTINA Polyspecific Negative 10/20/19 6:35 PM [facility] Blood Venous blood specimen / Unknown Venipuncture / Unknown 10/20/2024 9:54 AM EST 10/20/2024 4:43 PM EST Lamar Cotton MD LAB BLOOD BANK TEST ORDERABL ES Final Result Performing Organization Address [facility]/ZIP Co de Phone Number [facility] [address] [place] [address], [place] [phone] * (ABNORMAL) Hepatic function panel (10/19/2024 3:43 PM EST) [facility] Total Protein 6.6 6.0 - 8.0 g/dL LAB CHEMISTRY METHOD 10/19/2024 5:22 PM [facility] Albumin 3.5 3.2 - 5.0 g/dL LAB CHEMISTRY METHOD 10/19/2024 5:22 PM [facility] Total Bilirubin 1.2 0.0 - 1.4 mg/dL LAB CHEMISTRY METHOD 10/19/2024 5:22 PM [facility] Bilirubin, Direct 0.4(H) 0.0 - 0.3 mg/dL LAB CHEMISTRY METHOD 10/19/2024 5:22 PM [facility] Bilirubin, Indirect 0.8 0.0 - 1.1 mg/dL LAB CHEMISTRY METHOD 10/19/2024 5:22 PM EST [facility] ALT (SGPT) 201(H) 10 - 60 unit/L LAB CHEMISTRY METHOD 10/19/2024 5:22 PM EST [facility] Comment:Results verified by repeat testing AST (SGOT) 114(H) 10 - 42 unit/L LAB CHEMISTRY METHOD 10/19/2024 5:22 PM EST [facility] Alkaline Phosphatase 388(H) 42 - 121 unit/L LAB CHEMISTRY METHOD 10/19/2024 5:22 PM [facility] Blood Venous blood specimen / Unknown Venipuncture / Unknown 10/19/2024 3:43 PM EST 10/19/2024 4:33 PM EST Babak Carrasquillo MD LAB BLOOD ORDERABLES Final Resu lt Performing Organization Address City/[facility]/ZIP Co de Phone Number [facility] [address] [place] [address], [place] [phone] * (ABNORMAL) Vitamin B12 and folate (10/19/2024 3:25 PM EST) Pathologist [facility] Vitamin B-12 >2,000(H) 250 - 900 pcg/mL LAB CHEMISTRY METHOD 10/19/2024 7:19 PM EST [facility] Folate >20.0(H) 2.8 - 17.0 ng/ml LAB CHEMISTRY METHOD 10/19/2024 7:19 PM EST [facility] Blood Venous blood specimen / Unknown Venipuncture / Unknown 10/19/2024 3:25 PM EST 10/19/2024 4:33 PM EST Lamar Cotton MD LAB BLOOD ORDERABLES Final R esult [facility] [address] [place] [address], [place] [phone] * (ABNORMAL) Iron and TIBC (10/19/2024 3:25 PM EST) [facility] Iron 99 50 - 160 mcg/dL LAB CHEMISTRY METHOD 10/19/2024 7:39 PM EST [facility] TIBC 222(L) 250 - 450 mcg/dL LAB CHEMISTRY METHOD 10/19/2024 7:39 PM EST [facility] Iron Saturation 45 20 - 50 % LAB CHEMISTRY METHOD 10/19/2024 7:39 PM EST [facility] Blood Venous blood specimen / Unknown Venipuncture / Unknown 10/19/2024 3:25 PM EST 10/19/2024 4:33 PM EST us Lamar Cotton MD LAB BLOOD ORDERABLES Final R esult Performing Organization Address City/[facility]/ZIP Co de Phone Number [facility] [address] [place] [address], [place] [phone] * (ABNORMAL) Ferritin (10/19/2024 3:25 PM EST) [facility] Ferritin 1,309(H) 26 - 388 ng/mL LAB CHEMISTRY METHOD 10/19/2024 7:19 PM EST [facility] Blood Venous blood specimen / Unknown Venipuncture / Unknown 10/19/2024 3:25 PM EST 10/19/2024 4:33 PM EST Lamar Cotton MD LAB BLOOD ORDERABLES Final R esult [facility] [address] [place] [address], [place] [phone] * Bilirubin, direct (09/26/2024 6:59 AM EST) Only the most recent of3 resultswithin the time period is included. [facility] Bilirubin, Direct 0.2 0.0 - 0.2 mg/dL LAB CHEMISTRY METHOD 09/26/2024 7:54 AM EST [facility] Blood Venous blood specimen / Unknown Venipuncture / Unknown 09/26/2024 6:59 AM EST 09/26/2024 7:17 AM EST Olivia GOLDSTEIN LAB BLOOD ORDERABLES Fin al Result [facility] [address] [place] [address], [place] [phone] * Activated partial thromboplastin time (09/26/2024 6:58 AM EST) Only the most recent of4 resultswithin the time period is included. aPTT 31.1 25.0 - 37.0 sec LAB COAGULATION METHOD 09/26/2024 7:41 AM EST [facility] Blood Venous blood specimen / Unknown Venipuncture / Unknown 09/26/2024 6:58 AM EST 09/26/2024 7:16 AM EST Olivia GOLDSTEIN LAB BLOOD ORDERABLES Fin al Result Performing Organization Address City/[facility]/ZIP Co de Phone Number [facility] [address] [place] [address], [place] [phone] * Prothrombin time with INR (09/26/2024 6:58 AM EST) Only the most recent of4 resultswithin the time period is included. Protime 12.7 10.5 - 13.3 sec LAB COAGULATION METHOD 09/26/2024 7:41 AM EST [facility] INR 1.1 0.8 - 1.1 LAB COAGULATION METHOD 09/26/2024 7:41 AM EST [facility] Blood Venous blood specimen / Unknown Venipuncture / Unknown 09/26/2024 6:58 AM EST 09/26/2024 7:16 AM EST Narrative [facility] - 09/26/2024 7:41 AM EST Std. Therapy ?2.0-3.0 INR High Dose Therapy 3.0-4.5 INR Ranges may vary depending on clinical indications and protocol. Olivia GOLDSTEIN LAB BLOOD ORDERABLES Fin al Result Performing Organization Address City/[facility]/ZIP Co de Phone Number [facility] [address] [place] [address], [place] [phone] * (ABNORMAL) Fibrinogen (09/26/2024 6:58 AM EST) Only the most recent of4 resultswithin the time period is included. Fibrinogen 671(H) 145 - 415 mg/dL LAB COAGULATION METHOD 09/26/2024 7:41 AM EST [facility] Blood Venous blood specimen / Unknown Venipuncture / Unknown 09/26/2024 6:58 AM EST 09/26/2024 7:16 AM EST Olivia GOLDSTEIN LAB BLOOD ORDERABLES Fin al Result Performing Organization Address [facility] Co de Phone Number [facility] [address] [place] [address], [place] [phone] * (ABNORMAL) Complete blood count (09/26/2024 6:58 AM EST) Only the most recent of3 resultswithin the time period is included. WBC 9.2 4.0 - 10.5 K/mcL LAB HEMETOLOGY METHOD 09/26/2024 7:27 AM EST [facility] RBC 2.28(L) 4.70 - 6.00 M/mcL LAB HEMETOLOGY METHOD 09/26/2024 7:27 AM EST [facility] Hemoglobin 7.3(L) 13.5 - 18.0 g/dL LAB HEMETOLOGY METHOD 09/26/2024 7:27 AM EST [facility] Hematocrit 21.2(L) 40.0 - 54.0 % LAB HEMETOLOGY METHOD 09/26/2024 7:27 AM EST [facility] MCV 92.8 78.0 - 100.0 FL LAB HEMETOLOGY METHOD 09/26/2024 7:27 AM EST [facility] MCH 31.8 25.0 - 33.0 pcg LAB HEMETOLOGY METHOD 09/26/2024 7:27 AM EST [facility] MCHC 34.3 32.0 - 36.0 g/dL LAB HEMETOLOGY METHOD 09/26/2024 7:27 AM EST [facility] RDW 17.4 12.1 - 17.7 % LAB HEMETOLOGY METHOD 09/26/2024 7:27 AM EST [facility] Platelets 143(L) 150 - 450 K/mcL LAB HEMETOLOGY METHOD 09/26/2024 7:27 AM EST [facility] MPV 6.9(L) 7.4 - 11.4 FL LAB HEMETOLOGY METHOD 09/26/2024 7:27 AM EST [facility] Blood Venous blood specimen / Unknown Venipuncture / Unknown 09/26/2024 6:58 AM EST 09/26/2024 7:16 AM EST us Olivia GOLDSTEIN LAB BLOOD ORDERABLES Fin al Result [facility] [address] [place] [address], [place] [phone] * (ABNORMAL) Hemoglobin and hematocrit (09/23/2024 6:40 AM EST) Only the most recent of3 resultswithin the time period is included. Hemoglobin 7.0(LL) 13.5 - 18.0 g/dL LAB HEMETOLOGY METHOD 09/23/2024 7:36 AM EST [facility] Hematocrit 20.2(L) 40.0 - 54.0 % LAB HEMETOLOGY METHOD 09/23/2024 7:36 AM EST [facility] Blood Venous blood specimen / Unknown Venipuncture / Unknown 09/23/2024 6:40 AM EST 09/23/2024 7:00 AM EST us Babak Carrasquillo MD LAB BLOOD ORDERABLES Final Resu lt [facility] [address] [place] [address], [place] [phone] * CT Angio Pelvis wo and/or w [...] on 09/22/2024 5:52 PM. Workstation Name - [id number] -------- FINAL REPORT -------- Dictated By: Chano Martinez Dictated Date: 09/22/2024 17:38 ET Assigned Physician: Chano Martinez Reviewed and Electronically Signed By: Chano Martinez Signed Date: 09/22/2024 17:52 ET Workstation ID: [id number] Transcribed By: Self Edit Transcribed Date: 09/22/2024 [...] Martinez on 09/22/2024 5:52 PM.Workstation Name - [id number] -------- FINAL REPORT -------- Dictated By: Chano Martinez Dictated Date: 09/22/2024 17:38 ET Assigned Physician: Chano Martinez Reviewed and Electronically Signed By: Chano Matrinez Signed Date: 09/22/2024 17:52 ET Workstation ID: [id number] Transcribed By: Self Edit Transcribed Date: 09/22/2024 [...] on 09/22/2024 1:11 PM. Workstation Name - [id number] -------- FINAL REPORT -------- Dictated By: Carla Robledo Dictated Date: 09/22/2024 13:11 ET Assigned Physician: Carla Robledo Reviewed and Electronically Signed By: Carla Robledo Signed Date: 09/22/2024 13:11 ET Workstation ID: [id number] Transcribed By: Self Edit Transcribed Date: 09/22/2024 [...] Robledo on 09/22/2024 1:11 PM.Workstation Name - [id number] -------- FINAL REPORT -------- Dictated By: Carla Robledo Dictated Date: 09/22/2024 13:11 ET Assigned Physician: Carla Robledo Reviewed and Electronically Signed By: Carla Robledo Signed Date: 09/22/2024 13:11 ET Workstation ID: [id number] Transcribed By: Self Edit Transcribed Date: 09/22/2024 13:11 ET us Olivia GOLDSTEIN CV VASCULAR PROCEDURES F inal Result * Bilirubin, total and direct (09/22/2024 11:30 AM EST) Total Bilirubin 0.8 0.3 - 1.0 mg/dL LAB CHEMISTRY METHOD 09/22/2024 12:38 PM EST [facility] Bilirubin, Direct 0.1 0.0 - 0.2 mg/dL LAB CHEMISTRY METHOD 09/22/2024 12:38 PM EST [facility] Bilirubin, Indirect 0.7 mg/dL LAB CHEMISTRY METHOD 09/22/2024 12:38 PM EST [facility] Blood Venous blood specimen / Unknown Venipuncture / Unknown 09/22/2024 11:30 AM EST 09/22/2024 11:36 AM EST us Fransisco GOLDSTEIN LAB BLOOD ORDERABLES Jennifer graff Result [facility] ([facility] [address] [place] [address], [place] [phone] * Lipid panel (10/28/2022) LDL/HDL Ratio 3 <=5 Triglycerides 94 <=150 mg/dL Cholesterol 127 <=200 mg/dL HDL 44 >=40 mg/dL LDL Cholesterol 65 <=100 mg/dL Blood Venous blood specimen / Unknown [facility] Provider LAB BLOOD ORDERABLES Jennifer l Result from Last 3 Months or Most Recently Relevant to Health Maintenance Insurance MEDICARE [facility] Advance Directives * Full Code [...] currently active code status orders. Care Teams Cash Applications Coordinator Relationship Specialty Start Date End Date Aminata Moreno MD [address] [place] [id number] PCP - General Internal Medicine 10/21/24
--- OUTSIDE RECORDS SUMMARY | 2024-12-20 18:42 | XMS_ITS | Encounter Summary ---
Author Organization [facility] Address [address] [place] [address] Care Team Providers Care Licensing Specialist Name Role Phone Aminata Moreno MD Primary Care Provider Reason for Visit * Reason Onset Date Comments Constipation 12/20/2024 Encounter Details Date Type Department Care Team (Late st Contact Info) Description 12/20/2024 Nurse Triage Adult Medicine - [place] [address] [place] [phone] Aminata Moreno MD [address] [place] [address] Constipation Social History Tobacco Use Types Packs/Day [...] your last menstrual period? no Protocols used: [id number]-VF * Lakisha Shore - 12/20/2024 8:34 AM EDT Pt was in the office to see Dr. Moreno on 12/13 and discussed his issue with constipation. He stated that this morning the pain is bad it has been going on for about a week. None of the homeremedies or the OTC medications have helped him. Pt states he sent a [employer] message also regardingthis issue last night to Dr. Mroeno Best number [phone] documented in this encounter Plan of Treatment Upcoming Encounters Date Type Department Care Team (Late st Contact Info) Description 01/10/2025 9:00 AM EDT Office Visit [facility] Hematology Oncology [address] [place] [phone] Lamar Cotton MD [address] [place] [address] 03/16/2025 11:00 AM EDT Telemedicine Infectious Disease - [place] [address] [place] [phone] Neelima Peoples MD [address] [place] [address] documented as of this encounter Visit Diagnoses Not on filedocumented in this encounter Additional Health Concerns Assessment Noted Time PHQ-9 Depression Total Score: 1 12/14/19 25 2:57 PM EDT A fall risk assessment has been complete d for the patient 12/13/2024 2:57 PM EDT documented as of this encounter Care Teams Licensing Specialist Relationship Specialty Start Date End Date Aminata Moreno MD [address] [place] [address] PCP - General Internal Medicine 10/21/24 documented as of this encounter
--- OUTSIDE RECORDS SUMMARY | 2024-12-20 18:42 | XMS_ITS | Encounter Summary ---
Author Organization [facility] Address [address] [place] [address] Care Team Providers Care Impregnating Tank Operator Name Role Phone Indu Acosta MD Primary Care Provider Giovanna Thapa MD Unavailable Suzanna Mcgill DO Primary Care Provider [phone] Reason for Visit * Reason Comments Medication Refill Encounter Details Date Type Department Care Team (Late st Contact Info) Description 03/01/2022 Refill [facility] Cardiac Laboratory [address] [phone] Olivia Zavaleta PA [address] [place] [address] Medication Refill Social History Tobacco Use Types [...] Description 02/24/2025 10:00 AM EDT Office Visit [facility] [place] [address] [place] [phone] Giovanna Thapa MD [address] [place] [address] documented as of this encounter Visit Diagnoses Diagnosis Hypertension, unspecified type documented in this encounter Care Teams Impregnating Tank Operator Relationship Specialty Start Date End Date Indu Acosta MD [address] [place] [address] PCP - General 08/29/21 03/26/23 Suzanna Mcgill DO [address] [place] [address] PCP - General Family Medicine 03/27/23 Giovanna Thapa MD [address] [place] [address] Primary Jewelry Technician Cardiovascular Disease 08/29/21 documented as of this encounter
--- OUTSIDE RECORDS SUMMARY | 2024-12-20 18:43 | XMS_ITS ---
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 Head and neck cancer ([facility] V24, [facility] V28) 09/03/2022 Assessment & Plan (08/25/2024 12:48 PM EST): CT head and neck performed 08/18/2024: All negative for mass, metastatic disease, lymphadenopathy. Followed closely by radiation oncology. See note below. Infrarenal abdominal aortic aneurysm (AAA) without rupture ([facility] V24) 08/27/2022 Overview (08/17/2024): PET/CT TUMOR IMAGING SKULL BASE TO MID-THIGH ? 08/26/2022 Moderate calcified and sclerosis of the aortoiliac tree with fusiform infrarenal aneurysm measuring 3.1 cm Hyponatremia 11/12/2021 CLL (chronic lymphocytic gricel kemia) ([facility] V24, [facility] V28) 01/13/2019 Overview (05/21/2024): Dr [...] outpatient management. Coronary artery disease invo lving [place] coronary artery of [place] heart without angina pectoris 12/05/2017 Assessment & [...] Linked Problems CLL (chronic lymphocytic gricel kemia) ([facility] V24, [facility] V28) Treatment Medications No medications scheduled. Past Plans No past plan information found. Radiation Treatments * No radiation treatments are documented for this patient in [facility]. Treatments may have been administered in another system. Lifetime Dose Tracking * Chemical Lifetime Dose Automatic Entry Manual Entr y Fluoro Time 0.16 minutes 0.16 minutes 0 minutes Air Kerma 15.42 mGy 15.42 mGy 0 mGy
--- OUTSIDE RECORDS SUMMARY | 2024-12-20 18:43 | XMS_ITS | Encounter Summary ---
Author Organization [facility] Address [address] [place] [address] Care Team Providers Care Screen Repairer Crusher Name Role Phone Ananda Whiting MD Primary Care Provider Encounter Details Date Type Department Care Team Description 05/07/2023 Social Work [facility] Oncology Services [address] [place] [address] Cleo Campbell, [facility] Social History Tobacco Use Types Packs/Day Years [...] on filedocumented in this encounter Care Teams Screen Repairer Crusher Relationship Specialty Start Date End Date Ananda Whiting MD [address] [place] [address] [address] [place] [address] PCP - General Geriatric Medicine 06/03/24 documented as of this encounter
--- OUTSIDE RECORDS SUMMARY | 2024-12-20 18:43 | XMS_ITS | Clinical Summary ---
Author Organization [facility] Address [address] [place] [address] Care Team Providers Care Treatment Coordinator Name Role Phone Betsy Mcgillmaverick Primary Care Provider [phone] Allergies Active Allergy Reactions Criticality Noted Date [...] tea prior to administrati on. Active mv-mn/C/glutamin /lysin/diep149 (AIR[place]ORNE, ASCORBATE SODIUM, ORAL) Take by mouth. [...] veins 11/16/2015 Coronary artery disease invo lving [place] coronary artery of [place] heart without angina pectoris 09/13/2015 Overview (08/26/2022): Stenting x 2 in [address] Thapa in [place], [place] Stenting x 2 in [address] with [address] Thapa in [place], [place] Hyperlipidemia 09/13/2015 Primary hypertension 09/13/2015 Immunizations [...] Completed 09/10/2023 Medical Devices Implanted Type Area Electrolysis Operator Device Identifier Shelf Expiration Date Model / Serial / Lot Drill Bit Twist [employer] Standard Stainless Steel Sterile [id number] - [id number] Implanted:Qty: 1 on 09/03/2022 by Ashu Mason MD at [facility] [employer]STRUMENTS [id number] / / Procedures * Due to [facility] law, this organization might not be sharing negative HIV tests. Procedure Name Priority Date/Time Associated Diagnosis Comments BASIC METABOLIC PANEL Routine 03/01/2023 3:38 AM EDT from Last 3 Months or Most Recently Relevant to Health Maintenance Results * Due to [place] [employer] law, this organization might not be sharing negative HIV tests. * (ABNORMAL) Basic Metabolic Panel (03/01/2023 3:38 AM EDT) NA 132(L) 135 - 145 mmol/L 03/01/2023 4:37 AM EDT [facility] K 4.5 3.5 - 5.3 mmol/L 03/01/2023 4:37 AM EDT [facility] Cl 99 97 - 110 mmol/L 03/01/2023 4:37 AM EDT [facility] CO2 26 24 - 32 mmol/L 03/01/2023 4:37 AM EDT [facility] BUN 9 7 - 23 mg/dL 03/01/2023 4:37 AM EDT [facility] Creatinine 0.60 0.60 - 1.30 mg/dL 03/01/2023 4:37 AM EDT [facility] Glucose 149(H) 70 - 99 mg/dL 03/01/2023 4:37 AM EDT [facility] Calcium 8.7 8.7 - 10.7 mg/dL 03/01/2023 4:37 AM EDT [facility] Anion Gap 7 5 - 15 03/01/2023 4:37 AM EDT [facility] eGFR >90 >=60 mL/min/1. 73m2 03/01/2023 4:37 AM EDT [facility] Comment:The estimated glomer ular [...] MD LAB BLOOD ORDERABLES Final R esult [facility] [address] [place] [address], from Last 3 Months or Most Recently Relevant to Health Maintenance Insurance [facility] MCR REPLACE AARP Advance Directives Documents on File Type Date Recorded Patient Dietary Supervisor Expl anation Health Care Proxy 08/26/2022 12:51 [...] 6:07 AM 09/03/2022 4:22 PM Care Teams Treatment Coordinator Relationship Specialty Start Date End Date Suzanna Mcgill [address] [place] [address] PCP - General 08/14/22
--- OUTSIDE RECORDS SUMMARY | 2024-12-20 18:43 | XMS_ITS | Encounter Summary ---
Author Organization [facility] Address [address] [place] [address] Care Team Providers Care Corn Press Operator Name Role Phone Aminata Moreno MD Primary Care Provider Encounter Details Date Type Department Care Team (Late st Contact Info) Description 07/10/2024 Lab Requisition [facility] - Main Lab [address] [place] [address] Ally Ortega MD [address] [place] [address] Streptococcal infection, unspecified site Social History Tobacco [...] Description 01/10/2025 9:00 AM EDT Office Visit [facility] Hematology Oncology [address] [place] [address] Lamar Cotton MD [address] [place] [address] 03/16/2025 11:00 AM EDT Telemedicine Infectious Disease - [place] [address] [place] [address] Neelima Peoples MD [address] [place] [address] documented as of this encounter Visit Diagnoses Diagnosis Streptococcal infection, unspecified site documented in this encounter Additional Health Concerns Infection Onset Date Last Indicated Resolved Time Tuberculosis Rule-Out 09/06/2024 09/06/20242024 8:27 AM EST documented as of this encounter Care Teams Corn Press Operator Relationship Specialty Start Date End Date Aminata Moreno MD [address] [place] [address] PCP - General Internal Medicine 10/21/24 documented as of this encounter
--- OUTSIDE RECORDS SUMMARY | 2024-12-20 18:43 | XMS_ITS | Referral Summary ---
Author Organization [facility] Address [address] [place] [address] Care Team Providers Care Rock Worker Name Role Phone Suzanna Mcgill Primary Care Provider [phone] Allergies Active Allergy Reactions Criticality Noted Date [...] tea prior to administrati on. Active mv-mn/C/glutamin /lysin/gyhq068 ([place], ASCORBATE SODIUM, ORAL) Take by mouth. [...] veins 11/16/2015 Coronary artery disease invo lving [place] coronary artery of [place] heart without angina pectoris 09/13/2015 Overview (08/26/2022): Stenting x 2 in [address] Thapa in [place], [place] Stenting x 2 in [address] Follow[address] with [address]. Thapa in [place], [place] Hyperlipidemia 09/13/2015 Primary hypertension 09/13/2015 Immunizations [...] on file Medical Devices Implanted Type Area Orthodontist Assistant Device Identifier Shelf Expiration Date Model / Serial / Lot Drill Bit Twist [employer] Standard Stainless Steel Sterile [id number] - [id number] Implanted:Qty: 1 on 09/03/2022 by Ashu Mason MD at [facility] [employer]UM[employer] [id number] / / Procedures * Due to [facility] law, this organization might not be sharing negative HIV tests. Procedure Name Priority Date/Time Associated Diagnosis Comments BASIC METABOLIC PANEL Routine 03/01/2023 3:38 AM EDT from Last 3 Months or Most Recently Relevant to Health Maintenance Results * Due to [place] [employer] law, this organization might not be sharing negative HIV tests. * (ABNORMAL) Basic Metabolic Panel (03/01/2023 3:38 AM EDT) NA 132(L) 135 - 145 mmol/L 03/01/2023 4:37 AM EDT [email or web address] K 4.5 3.5 - 5.3 mmol/L 03/01/2023 4:37 AM EDT [email or web address] Cl 99 97 - 110 mmol/L 03/01/2023 4:37 AM EDT [email or web address] CO2 26 24 - 32 mmol/L 03/01/2023 4:37 AM EDT [email or web address] BUN 9 7 - 23 mg/dL 03/01/2023 4:37 AM EDT [email or web address] Creatinine 0.60 0.60 - 1.30 mg/dL 03/01/2023 4:37 AM EDT [facility] Glucose 149(H) 70 - 99 mg/dL 03/01/2023 4:37 AM EDT [facility] Calcium 8.7 8.7 - 10.7 mg/dL 03/01/2023 4:37 AM EDT [facility] Anion Gap 7 5 - 15 03/01/2023 4:37 AM EDT [facility] eGFR >90 >=60 mL/min/1. 73m2 03/01/2023 4:37 AM EDT [facility] Comment:The estimated glomer ular [...] MD LAB BLOOD ORDERABLES Final R esult [facility] [address] [place] [address], [place] from Last 3 Months or Most Recently Relevant to Health Maintenance Insurance [facility] MCR REPLACE AARP Advance Directives Documents on File Type Date Recorded Patient Return To Service Inspector [facility] Care Proxy 08/26/2022 12:51 PM PROXY SCANNED [...] 6:07 AM 09/03/2022 4:22 PM Care Teams Rock Worker Relationship Specialty Start Date End Date Suzanna Mcgill [address] [place] [address] PCP - General 08/14/22
--- OUTSIDE RECORDS SUMMARY | 2024-12-20 18:43 | XMS_ITS ---
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 Past Plans ONCOLOGY TREATMENT Plan Name Start Date Discontinue Date Treatment Medications Discontinue Reason Plan Provider Cycles [facility] BCN OP CISPLATIN 100MG/M2 (FOR USE WITH [...] treatments are documented for this patient in [facility]. Treatments may have been administered in another system.
--- OUTSIDE RECORDS SUMMARY | 2024-12-20 18:43 | XMS_ITS | Encounter Summary ---
Author Organization [facility] Address [address] [place] [address] Care Team Providers Care Auto Research Engineer Name Role Phone Giovanna Thapa MD Unavailable Suzanna Mcgill DO Primary Care Provider [phone] Reason for Visit * Reason Comments Medication Refill Encounter Details Date Type Department Care Team (Late Contact Info) Description 07/05/2023 Refill [facility] Vascular [address] [phone] Mary Bella, PERSONNEL AND PAYROLL TECHNICIAN [address] [place], [place] [phone] Medication Refill Social History Tobacco Use Types [...] Description 02/24/2025 10:00 AM EDT Office Visit [facility] Vascular [address] [phone] Giovanna Thapa MD [address] [place] [address] [address] [place] [address] documented as of this encounter Visit Diagnoses Diagnosis Hypertension, unspecified type documented in this encounter Care Teams Auto Research Engineer Relationship Specialty Start Date End Date Suzanna Mcgill DO [address] [place] [address] PCP - General Family Medicine 03/27/23 Giovanna Thapa MD [address] [place] [address] Primary Silk Weaver Cardiovascular Disease 08/29/21 documented as of this encounter
--- OUTSIDE RECORDS SUMMARY | 2024-12-20 18:43 | XMS_ITS | Encounter Summary ---
Author Organization [facility] Address [address] [place] [address] Care Team Providers Care City Constable Name Role Phone Suzanna Mcgill Primary Care Provider [phone] Encounter Details Date Type Department Care Team (Late st Contact Info) Description 09/25/2023 [facility] [address] [place] [address] Mychart, Generic Provider [address] [place], [place] [phone] Occuplastics referral Social History Tobacco Use Types [...] on filedocumented in this encounter Care Teams City Constable Relationship Specialty Start Date End Date Suzanna Mcgill [address] [place] [address] PCP - General 08/14/22 documented as of this encounter
--- OUTSIDE RECORDS SUMMARY | 2024-12-20 18:43 | XMS_ITS ---
Author Organization [facility] Address [address] [place] [address] Care Team Providers Care Spinning Frame Fixer Name Role Phone Nano Harpreetvidhi Primary Care Provider [phone] Active Problems Problem Noted Date Diagnosed Date [...] veins 11/16/2015 Coronary artery disease invo lving [place] coronary artery of [place] heart without angina pectoris 09/13/2015 Overview (08/26/2022): Stenting x 2 in [address] Thapa in [place], [place] Stenting x 2 in 2004. Follows with Dr. Thapa [place] Hyperlipidemia 09/13/2015 Primary hypertension 09/13/2015 Current Treatment and Therapy Plans No current plan information found. Past Treatment and Therapy Plans No past plan information found. Lifetime Dose Tracking * Chemical Lifetime Dose Automatic Entry Manual Entr y TotalDLP 859 mGy 859 mGy 0 mGy [id number] 7.5 mSv 7.5 mSv 0 mSv CTDIvol Max 32.2 mGy 32.2 mGy 0 mGy CTDIvol Min 32.2 mGy 32.2 mGy 0 mGy
--- OUTSIDE RECORDS SUMMARY | 2024-12-20 18:43 | XMS_ITS | Clinical Summary ---
Author Organization [facility] Address [address] [place] [address] Care Team Providers Care Slope Hoist Operator Name Role Phone Ananda Whiting MD Primary [...] as needed. 0 Active Cobalamin Combinations (Vitamin J64-Gtevc Acid) 500-400 MCG TABS Take by mouth [...] skin 2022 Coronary artery disease invo lving tonawanda coronary artery of ton[place]anda heart without angina pectoris 12/05/2017 Essential hypertension [...] this topic Medical Devices Implanted Type Area Machinist 2Nd Shift Device Identifier Shelf Expiration Date Model / Serial / Lot Cement Bone Surg Simplex Radiopq [facility] 7675-2-541-114 092 - [id number] Implanted:Qty: 1 on 06/08/2024 by Babak Carrasquillo MD at [facility] and [facility] Right: Hip [employer] [id number] 05/08/2026 6191-1-010 / / [id number] Impl Set Bead 2.0mm Vit Brandt [facility] 4165-6-515-114 128 - [id number] Implanted:Qty: 1 on 06/08/2024 by Babak Carrasquillo MD at [facility] and [facility] Right: Hip [employer] [id number] 01/19/2029 6704-0-520 / / [id number] Impl Set Bead 2.0mm Vit Brandt [facility] 7926-2-120-114 128 - [id number] Implanted:Qty: 1 on 06/08/2024 by Babak Carrasquillo MD at [facility] and Med Right: Hip [employer] [id number] 01/19/2029 6704-0-520 / / [id number] Impl Set Bead 2.0mm Vit Brandt WillisHowkvng 2026-4-347-114 128 - [id number] Implanted:Qty: 1 on 06/08/2024 by Babak Carrasquillo MD at [facility] and Med Right: Hip [employer] [id number] 01/09/2029 6704-0-520 / / [id number] Impl Set Bead 2.0mm Vit Brandt Willis[employer]kvng 0166-5-428-114 128 - [id number] Implanted:Qty: 1 on 06/08/2024 by Babak Carrasquillo MD at [facility] and Med Right: Hip [employer] [id number] 01/09/2029 6704-0-520 / / [id number] Impl Set Bead 2.0mm Vit Brandt Kaminski-How 0701-2-252-114 128 - [id number] Implanted:Qty: 1 on 06/08/2024 by Babak Carrasquillo MD at [facility] and Med Right: Hip [employer] [id number] 10/06/2028 6704-0-520 / / [id number] Cable Slv Set D-M Bead 2.0mm Vit Med Stry-Howm 3821-3-006-114 159 - [id number] Implanted:Qty: 1 on 06/08/2024 by Babak Carrasquillo MD at [facility] and Med Right: Hip [employer] [id number] 11/17/2028 6704-0-510 / / [id number] Cable Slv Set D-M Bead 2.0mm Vit Med Stry-Howm 4229-6-486-114 159 - [id number] Implanted:Qty: 1 on 06/08/2024 by Babak Carrasquillo MD at [facility] and Med Right: Hip [employer] [id number] 11/17/2028 6704-0-510 / / [id number] Cable Slv Set D-M Bead 2.0mm Vit Med Stry-How 6969-5-196-114 159 - [id number] Implanted:Qty: 1 on 06/08/2024 by Babak Carrasquillo MD at [facility] and [facility] Right: Hip [employer] [id number] 11/17/2028 6704-0-510 / / [id number] Cable Slv Set D-M Bead 2.0mm Vit Med Stry-How 7953-2-248-114 159 - [id number] Implanted:Qty: 1 on 06/08/2024 by Babak Carrasquillo MD at [facility] and [facility] Right: Hip [employer] [id number] 11/17/2028 6704-0-510 / / [id number] Plate Floor Trader Troch Lg 210mm Vitallium W 2 2mm Cabl Stry-How 9799-6-062-363 390 - [id number] Implanted:Qty: 1 on 06/08/2024 by Babak Carrasquillo MD at [facility] and [facility] Right: Hip [employer] [id number] 02/19/2028 6704-3-093 / / [id number] Cement Bone Surg Simplex Radiopq Str-How 7557-1-668-114 092 - [id number] Implanted:Qty: 1 on 06/08/2024 by Babak Carrasquillo MD at [facility] and [facility] Right: Hip [employer] [id number] 05/08/2026 6191-1-010 / / [id number] Explanted Type Area Machinist 2Nd Shift Device Identifier Shelf Expiration Date Model / Serial / Lot Femoral Head Explanted:Qty: 1 on 06/08/2024 by Babak Carrasquillo MD at [facility] and [facility] Right: Hip Femoral Stem Explanted:Qty: 1 on 06/08/2024 at [facility] and [facility] Right: Hip Acetabular Liner Explanted:Qty: 1 on 06/08/2024 at [facility] and [facility] Right: Hip Screw Explanted:Qty: 1 on 06/08/2024 at [facility] and [facility] Right: Hip Screw Explanted:Qty: 1 on 06/08/2024 at [facility] and [facility] Right: Hip Screw Explanted:Qty: 1 on 06/08/2024 at [facility] Right: Hip Acetabular Shell Explanted:Qty: 1 on 06/08/2024 at [facility] and [facility] Right: Hip Advance Directives For more information, please contact: [phone] Latest Code Status on File Code Status [...] way: discussion with patient . Care Teams Slope Hoist Operator Relationship Specialty Start Date End Date Ananda Whiting MD [address] [facility] [address] [place] [address] PCP - General Geriatric Medicine 06/03/24
--- OUTSIDE RECORDS SUMMARY | 2024-12-20 18:43 | XMS_ITS | Encounter Summary ---
Author Organization [facility] Address [address] [place] [address] Care Team Providers Care Deputy Director Of Nursing Name Role Phone Suzanna Mcgill Primary Care Provider [phone] Encounter Details Date Type Department Care Team (Late st Contact Info) Description 08/21/2022 myChart Message [facility] Operating Room [address] [place] [id number] Mychart, Generic Provider [address] [place], [place] [id number] Surgical procedure with Dr. Ashu Mason on [...] on filedocumented in this encounter Care Teams Deputy Director Of Nursing Relationship Specialty Start Date End Date Suzanna Mcgill [address] [place] [address] PCP - General 08/14/22 documented as of this encounter
--- OUTSIDE RECORDS SUMMARY | 2024-12-20 18:43 | XMS_ITS | Clinical Summary ---
Author Organization [facility] Address [address] [place] [address] Care Team Providers Care Manager Mobility Name Role Phone Giovanna Thapa MD Unavailable Suzanna Mcgill DO Primary Care Provider [phone] Allergies Active Allergy Reactions Criticality Noted Date [...] as needed. 4 Active Cobalamin Combinations (Vitamin L15-Jciic Acid) 500-400 MCG Tab Take by mouth [...] work up Coronary artery disease invo lving nenana coronary artery of nenana heart without angina pectoris 09/13/2015 Overview (09/05/2021): Stenting x [address] in [address] Thapa in [place], [place] Essential hypertension 09/13/2015 Hyperlipidemia 09/13/2015 Primary hypertension 09/13/2015 Coronary artery disease invo lving nenana coronary artery of nenana heart without angina pectoris 09/13/2015 03/27/2023 Overview (03/27/2023): Stenting x 2 in [address] Thapa in [place], [place] Stenting x 2 in [address] Thapa in [place] Other hyperlipidemia 09/13/2015 03/27/2023 Immunizations Name [...] Description 02/24/2025 10:00 AM EDT Office Visit [facility] [place] [address] [place] [id number] Giovanna Thapa MD [address] [place] [address] Health Maintenance Due Date Last Done Comments [...] age to complete this topic Care Teams Manager Mobility Relationship Specialty Start Date End Date Suzanna Mcgill DO [facility] [place] [address] PCP - General Family Medicine 03/27/23 Giovanna Thapa MD [address] [place] [address] Primary Polishing Machine Operator Helper Cardiovascular Disease 08/29/21
--- NOTE | 2024-12-20 19:57 | PM.OP ---
Brief Operative Note Date of Service: 12/20/24 Pre-op diagnosis: Sigmoid volvulus Post-op diagnosis: same Procedure: Colonoscopy with decompression of volvulus and distended colon, with placement of a rectal tube Surgeon: Eliseo Tineo MD Anesthesia: MAC Was an Parking Lot Laborer used for this Procedure?: No Estimated blood loss (mL): 0 Pathology: none sent Condition: stable Disposition: PACU
--- NOTE | 2024-12-20 19:58 | P.EN_ITS ---
Event Note Date of Service: 12/20/24 Event Note: Colonoscopy with decompression of sigmoid volvulus and placement of rectal tube- Full note dictated. D/W Dr. Banerjee, the patient, and his significant other. Findings: 1. Twist with puckering seen at approx, 30-40cm. Easily passed and then a large amount of air suctioned from proximal distended colon. No stool or liquid noted. Colonic mucosa all WNL without ischemia, polyps, or masses. 2. Advanced a rectal tube to about 50cm and left in place. Air noted to be coming into the bag. 3. His abdominal exam was greatly improved in the PACU and he was feeling much better by his report. Rec: Observe. NPO except ice, meds, and sips. F/U abdominal xray and labs in the AM. If volvulus recurs he will need surgery. If things remain stable, then advance diet as per surgery service and start a bowel regimen with Miralax. Thanks Time Spent With Patient Time: Total time managing care of this patient today ____ minutes.
[2024-12-20] MEDS: Acetaminophen 325 MG TABLET 650 MG PO (20:49)
--- NOTE | 2024-12-20 21:52 | P.CONGS_ITS ---
History of Present Illness Consult details Consult date: 12/20/24 Requesting physician: Marj Nails Narrative: The pt is a 74 year old male who comes to ER with abdominal pain and nausea, no emesis, and has not had a bowel movement in about 10 days and stopped passing gas about 3 days prior. Abdomen is distended and KUB shows markedly dilated colon. CT scan with po contrast shows sigmoid volvulus. Pt has had squamous cell acancer of the face and has had surgery for this. Has CLL and is followed by oncology. GI has seen the pt and is taking to the procedure room for sigmoidoscopy for detorsion. [facility] Past Medical History Medical History (Updated 12/20/24 @ 17:40 by Jose Dorman DO) Chronic anemia Basal cell carcinoma Squamous cell carcinoma of face CLL (chronic lymphocytic leukemia) HLD (hyperlipidemia) HTN (hypertension) Surgical History Surgical History H/O neck surgery H/O heart artery stent History of total right hip replacement History of total left hip replacement History of facial surgery Social History Social History Household Members: Significant Other Housing: Condominium Are you a primary child care centre director to a significant other at home: No Do you presently have visiting nurse or other home services: Yes (PT) Patient Tobacco Use Status: Never used Tobacco Use of substances other than those prescribed or required for medical reasons: No Substance Use Type Other:: edibles thc Substance Use Frequency: Monthly Have you been hit, kicked, punched, or otherwise hurt by someone within the past year? If so, by whom?: No Do you feel safe in your current relationship?: Yes Is there a partner from a previous relationship who is making you feel unsafe now?: No Are you made to feel afraid or neglected: No Are you DNR?: No Advance Directives: No Advance Directives Information Provided: Yes Advance Directives on File: No Do you have a plan to hurt others: No Plan Recently lost weight without trying: Yes How much weight loss: 34pounds or more Eating poorly because of decreased appetite: No Nutrition screen score: 6 Nutrition Risks: Surgical patient >75years Poor oral hygiene: No Meds Allergies Allergy/AdvReac Type Severity Reaction Status Date / Time No Known Allergies Allergy Verified 12/20/24 17:03 Active Medications: Current Medications Acetaminophen (Acetaminophen 325 Mg Tablet) 650 mg PO Q6H PRN PRN Reason: Pain, Mild 1-3,fever,headache Last Admin: 12/20/24 20:49 Dose: 650 mg Amlodipine Besylate (Amlodipine Besylate 10 Mg Tablet) 10 mg PO DAILY [facility]; Protocol Atorvastatin Calcium (Atorvastatin Calcium 40 Mg Tablet) 40 mg PO DAILY [facility] Calcium Carbonate (Calcium Carbonate 750 Mg Tab.Chew) 750 mg PO Q4H PRN PRN Reason: Heartburn Carvedilol (Carvedilol 6.25 Mg Tablet) 6.25 mg PO BID [facility]; Protocol Last Admin: 12/20/24 20:06 Dose: Not Given Enoxaparin Sodium (Enoxaparin Sodium 40 Mg/0.4 Ml Syringe) 40 mg SUBCUT Q24H [facility] Losartan Potassium (Losartan Potassium 50 Mg Tablet) 100 mg PO DAILY [facility]; Protocol Magnesium Hydroxide (Milk Of Magnesia 30 Ml Oral.Susp) 30 ml PO DAILY PRN PRN Reason: Constipation Melatonin (Melatonin 3 Mg Tablet) 6 mg PO BEDTIME PRN PRN Reason: Insomnia Methocarbamol (Methocarbamol 750 Mg Tablet) 750 mg PO Q6H PRN PRN Reason: muscle spasm Morphine Sulfate (Morphine Sulfate 4 Mg/Ml Cartridge) 4 mg IVPUSH Q4H PRN; Protocol PRN Reason: abd pain Naloxone HCl (Naloxone Hcl 0.4 Mg/Ml Vial) 0.04 mg IVPUSH Q5M PRN PRN Reason: Excessive sedation or RR < 8 Ondansetron HCl (Ondansetron Hcl 4 Mg/2 Ml Vial) 4 mg IVPUSH Q8H PRN PRN Reason: Nausea and Vomiting Sodium Chloride (0.9 % Sodium Chloride Flush 3 Ml Syringe) 3 [facility] Home Medications ?Medication ?Instructions ?Recorded ?Confirmed ?Last Taken ?Type amlodipine 10 mg tablet 10 mg PO DAILY 12/20/24 12/20/24 12/19/24 History atorvastatin 40 mg tablet 40 mg PO DAILY 12/20/24 12/20/24 12/19/24 History carvedilol 6.25 mg tablet 6.25 mg PO BID 12/20/24 12/20/24 12/19/24 History cefadroxil 500 mg capsule 500 mg PO BID 12/20/24 12/20/24 12/19/24 History losartan 100 mg tablet 100 mg PO DAILY 12/20/24 12/20/24 12/19/24 History methocarbamol 750 mg tablet 750 mg PO Q6-8H PRN muscle spasm 12/20/24 12/20/24 Unknown History oxycodone 5 mg tablet 5 mg PO Q6-8H PRN severe pain 12/20/24 12/20/24 Unknown History Physical Exam 2 Vital Signs: Vital Signs: Last Vital Signs Temp 97.4 F 12/20/24 19:42 Pulse 57 12/20/24 19:42 Resp 16 12/20/24 19:42 BP 137/71 12/20/24 19:42 Pulse Ox 98 12/20/24 19:42 O2 Del Method Room Air 12/20/24 19:42 BMI result Body Mass Index 23.2 GI: Other: abdomen soft less distended and non tender after procedure in OR with rectal tube inn place Results Labs 12/20/24 11:00 12/20/24 11:00 Labs: Abnormal lab results 12/20/24 Range/Units 11:00 WBC 10.9 H (4.8-10.8) X10*3/uL RBC 3.47 L (4.60-5.80) X10*6/uL Hgb 11.6 L (14.0-18.0) g/dl Hct 34.0 L (42.0-52.0) % MCH 33.4 H (27.0-33.0) pg RDW 17.4 H (11.0-16.0) % Plt Count 122 L (160-400) X10*3/uL MPV 8.3 L (9.4-12.4) fL Neutrophils % (Manual) 20 L (45-73) % Band Neutrophils % 2 L (3-5) % Lymphocytes % (Manual) 74 H (20-40) % Lymphocytes # (Manual) 8.1 H (1.2-4.9) X10*3/uL Sodium 132 L (135-145) mmol/L Anion Gap 10 L (12-20) AST 49 H (5-37) U/L Alkaline Phosphatase 159 H (39-117) U/L Short CBC 12/20/24 Range/Units 11:00 WBC 10.9 H (4.8-10.8) X10*3/uL Hgb 11.6 L (14.0-18.0) g/dl Hct 34.0 L (42.0-52.0) % Plt Count 122 L (160-400) X10*3/uL BMP 12/20/24 11:00 Sodium 132 L Potassium 3.7 Chloride 99 Carbon Dioxide 27 BUN 15 Creatinine 0.75 Calcium 9.5 Liver Function 12/20/24 Range/Units 11:00 Total Bilirubin 0.6 (0.0-1.0) mg/dL Direct Bilirubin 0.3 (0.0-0.5) mg/dL AST 49 H (5-37) U/L ALT 30 (0-40) U/L Alkaline Phosphatase 159 H (39-117) U/L Albumin 4.2 (3.5-5.0) g/dL All other labs normal. Imaging Additional studies: Chart - qunb ? Diagnostics Subcategory All Activity ??:?? All Time ??:?? All Subcategories Filter Laboratory Imaging Microbiology Pathology Blood Bank Tests Cardiovascular Other Specialty DATE TYPE STATUS REF RANGE/AUTHOR Hx Today 15:17 Abdomen/Pelvis CT Signed Eliseo Jones Today 11:10 KUB X-Ray Signed Marcelo Dawson Michael R Acute 74, M?1950 MRN#? [id number] ADM [place],?[facility]??472?-1? 6ft 2in 180lb 12.465oz BSA: 2.07m? BMI: 23.2kg/m? Acc#? [id number] Full Code Allergies No Known Allergies Problems ? ONSET Coronary artery disease HLD (hyperlipidemia) HTN (hypertension) Sigmoid volvulus Vital Signs Today 19:42 BP 137/71? Pulse 57? Resp 16? Temp 97.4 F? O2 Sat 98? Delivery Room Air? Home Meds Confirmed Prescription Monitoring Program Total 30 MME/Day MEDICATIONS (INSTRUCTIONS) LAST TAKEN Active amlodipine 10 mgPODAILY 12/19/24 atorvastatin 40 mgPODAILY 12/19/24 carvedilol 6.25 mgPOBID 12/19/24 cefadroxil 500 mgPOBID 12/19/24 losartan 100 mgPODAILY 12/19/24 methocarbamol 750 mgPOQ6-8HPRNmuscle spasm Unknown oxycodone 5 mgPOQ6-8HPRNsevere pain Unknown 30 MME/Day My Widget No Data to Display Diagnostics Reports Fransisco Garzon??74??M??1950 ? Allergy/Adv: No Known Allergies Close Abdomen/Pelvis CT (Signed) Eliseo Jones - 12/20/24 KUB X-Ray (Signed) DawsonMarcelo - 12/20/24 Launch?Image [address] [address] [address] Scan Report Signed Patient: Fransisco Garzon MR#: [id number] : 1950 Acct:[id number] Age/Sex: 74 / M ADM Date: 12/20/24 Loc: .ED Attending Dr: Ordering Physician: Marj Nails Date of Service: 12/20/24 Procedure(s): CT abdomen pelvis w IV con Accession Number(s): [id number] cc: Marj Nails; Aminata Moreno MD~ Report Number: [id number]: Total DLP = 727.00 mGy-cm EXAMINATION: CT ABDOMEN PELVIS WITH IV CONTRAST HISTORY: abdominal pain, probable bowel obstruction COMPARISON: Correlation is made with plain films of the abdomen performed earlier in the day. TECHNIQUE: CT scan of the abdomen and pelvis was performed following administration of 85 mL Omnipaque 350 using standard departmental protocol. Coronal and sagittal reformatted images were generated and reviewed. The patient received oral contrast material. This CT exam was performed with one or more of the following dose reduction techniques: automated exposure control, adjustment of the mA and/or kV according to patient size, use of iterative reconstruction technique. DLP: 727 mGy-cm FINDINGS: LOWER CHEST: The visualized lung bases are clear. There is no pleural effusion. CARDIOVASCULATURE: The heart is normal in size. There is no pericardial effusion. LIVER: There is atrophy of the left lobe of the liver. No liver mass is identified. The hepatic and portal veins are patent. GALLBLADDER / BILE DUCTS: The gallbladder is unremarkable. There is no intra or extrahepatic biliary ductal dilatation. SPLEEN: The spleen is normal in size. No focal splenic lesion is identified. PANCREAS: The pancreas is unremarkable in appearance. ADRENAL GLANDS: Within normal limits. KIDNEYS/RETROPERITONEUM: No renal calculi are identified. There is no hydronephrosis. No renal masses are identified. LYMPH NODES: No abdominal or pelvic lymphadenopathy. VASCULATURE: The abdominal aorta demonstrates atherosclerotic calcification, but is normal in caliber. MESENTERY/PERITONEUM: There is a small amount of free fluid in the pelvis. No masses. There is no free intraperitoneal gas. STOMACH: The stomach is unremarkable. SMALL BOWEL: The small bowel is normal in caliber. COLON: There is marked dilatation of the colon with gas and feces (up to 9.9 cm in diameter) to the level of the sigmoid where there is twisting of the mesentery compatible with volvulus. The colon distal to this level is collapsed. There is no pneumatosis. APPENDIX: Normal. URINARY BLADDER/PELVIC ORGANS: The urinary bladder is obscured by streak artifact from bilateral total hip arthroplasties. The prostate is not well visualized. BONES / SOFT TISSUES: There is a rim-enhancing fluid collection lateral and superior to the right hip measuring 5.1 x 6.3 x 4.7 cm which may represent a seroma or abscess. There is mild infiltration of the overlying fat. CT/CT abdomen pelvis w IV con IMPRESSION: 1. Sigmoid volvulus with dilatation of the more proximal colon measuring up to 9.9 cm in diameter. 2. 5.1 x 6.3 x 4.7 cm rim-enhancing fluid collection superior and lateral to the right hip which may represent a seroma or abscess. 3. Findings were discussed with Marj Nails in the emergency room on 12/20/2024 at 3:47 PM. 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 stable. plan to reeval in morning - most likely if all oges well may kat dc with po diet and stool softeners but if recurrence of volvulus then needs sigmoid colectomy. Procedures Date of Service Date of Service: 12/20/24
--- NOTE | 2024-12-20 23:58 | OP_ITS ---
DATE OF SERVICE: 12/20/2024 SURGEON: Eliseo Tineo MD INDICATIONS: The patient presents for evaluation of sigmoid volvulus. Full consent has been obtained from him for this, including risks of bleeding and perforation. PREOPERATIVE DIAGNOSIS: Sigmoid volvulus. POSTOPERATIVE DIAGNOSIS: Sigmoid volvulus. PROCEDURE PERFORMED: Colonoscopy to the transverse colon with decompression of sigmoid volvulus and subsequent placement of rectal tube. ESTIMATED BLOOD LOSS: COMPLICATIONS: ANESTHESIA: Medication used, monitored anesthesia care. ASSISTANTS: SPECIMENS: DESCRIPTION OF PROCEDURE: The patient was placed in the left lateral decubitus position. The digital rectal exam revealed no abnormalities. The Olympus video pediatric colonoscope was entered into the rectum. At approximately an area between 30 and 40 cm was evidence of the volvulus with clear puckering and a twist of the mucosa. With insufflation of air and gentle pressure, I was able to easily pass this. The bowel proximal to this was quite distended and a lot of air was suctioned out. There was really no liquid nor stool. I was able to advance to about 80 cm when appeared to be probably the transverse colon. I sucked out a lot of air from that area as well. His abdominal exam greatly improved as all this was being done. There was much less distention, and there was no tenderness. The colonic mucosa appeared normal throughout without any sign of ischemia, polyps, nor masses. I sucked out as much air as possible. I then took the scope out. I advanced a rectal tube alongside the scope as I was holding it with an alligator biopsy forceps. I was able to advance it to at least 60 cm, which I felt was definitely above the area of the previous volvulus. I had suctioned out a lot of air in the more proximal colon. Leaving the rectal tube in place, I was then able to withdraw the scope and the biopsy forceps. The rectal tube bag did fill with considerable amount of air after the procedure as well. His abdominal exam remained quite soft and nondistended after the exam as well. There was no tenderness. IMPRESSION: Sigmoid volvulus, status post decompression and placement of rectal tube. PLAN: The patient will be observed overnight. He will have followup laboratories and abdominal x-ray in the morning. If things remain stable, then his diet can be advanced slowly as per the surgical service. I did review this with Dr. Banerjee, and he will be followed by either her or one of her colleagues. If the situation remains stable without any recurrence of the volvulus, then his diet can be advanced and he should be maintained on a bowel regimen. On the other hand, if the volvulus recurs, he would then need surgical intervention. This has all been discussed with the patient and his significant other. MD TRINIDAD Hawk/DESIREE / [id number]
[2024-12-21] VITALS (7 sets, daily range): BP systolic 114–125; BP diastolic 62–70; PULSE 57–86; RESP 16–20; TEMP 36.5–37.1; O2SAT 97–99
--- NOTE | 2024-12-21 | ECG_ITS ---
Test Reason : CAD Blood Pressure : */* mmHG Vent. Rate : 57 BPM Atrial Rate : * BPM P-R Int : * ms QRS Dur : 92 ms QT Int : 484 ms P-R-T Axes : * -36 5 degrees QTcB Int : 471 ms Normal sinus rhythm Incomplete right bundle branch block Left axis deviation Low voltage QRS Nonspecific ST and T wave abnormality Abnormal ECG When compared with ECG of 20-Dec-2024 17:25, Right bundle branch block is no longer Present Referred By: Jose Dorman Electronically Signed By: SIM MAYORGA MD
--- NOTE | 2024-12-21 00:53 | CONS_ITS ---
DATE OF SERVICE: 12/20/2024 REASON FOR CONSULTATION: Constipation, abdominal pain, and sigmoid volvulus. HISTORY OF PRESENT ILLNESS: This has been obtained from the patient and his significant other, as well as from the medical record. The patient is a 74-year-old male on chronic pain medication, who has had constipation for the past 2 or 3 years. Prior to that, he does use Metamucil. However, over the past week or 2, his constipation has become more pronounced with associated abdominal distention, nausea, and no passage of any flatus for at least 3 days. His appetite has been diminished. He denies any vomiting. He denies any hematochezia nor melena. He does describe a colonoscopy about 2 years ago in [place], that was negative for any polyps or lesions other than anal fissures. His workup in the ER including a CT scan, was consistent with a sigmoid volvulus. He denies ever having had that before. At the present time, he does have some abdominal discomfort and cramping. He has otherwise been stable in the ER and has been afebrile. He denies any urinary symptoms. Prior to this progressive constipation, he was not having any significant anorexia, dysphagia, nor any chronic abdominal pain. MEDICATIONS: At home included amlodipine, atorvastatin, carvedilol, losartan, methocarbamol, oxycodone, and tramadol. 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 This had an associated skin graft. He was subsequently treated with chemotherapy and radiation treatments. 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 He has had bilateral hip replacements, but the right hip became infected and required removal last year. He had a hip replacement this past September. He also has coronary artery stents. He does have history of hypertension, hyperlipidemia. He denies history of [place], stroke, lung disease, nor any known renal disease. He denies any diabetes. He denies any other surgeries besides the squamous cell cancers of the skin and his Orthopedic surgery with the hip replacements, including the most recent one this past September. PAST SOCIAL HISTORY: He does not smoke nor use any significant amounts of alcohol. He has a significant other. FAMILY HISTORY: Noncontributory. REVIEW OF SYSTEMS: CONSTITUTIONAL: He has been feeling poorly in the last few days because of the problem with his abdominal pain and constipation. Prior to about 10 days ago, he was feeling otherwise well. CARDIAC: No chest pain. PULMONARY: No coughing nor hemoptysis. GI: As above. URINARY: No dysuria. No hematuria. NEUROLOGIC: No headache or seizures. PHYSICAL EXAMINATION: GENERAL: The patient is a pleasant, alert, elderly male in no distress. He has been afebrile. SKIN: Warm and dry. CHEST: Clear. CARDIAC: Normal S1, S2. ABDOMEN: Distended with diminished bowel sounds. There is some mild diffuse tenderness without mass, rebound, or guarding. LABORATORY DATA: His white blood cell count 10.9, hemoglobin 11.6, platelets 122,000; differential shows 20% segs, 2% bands and 74% lymphocytes. Of note, he does have a history of CLL, followed by a engineer process at [facility]. Sodium 132, potassium 3.7, BUN 15, and creatinine 0.8. Normal LFTs except for an AST of 49 and alkaline phosphatase 159. Albumin 4.2, lipase 49. His CT scan of the abdomen and pelvis describes findings consistent with a sigmoid volvulus with marked dilatation of the colon with gas and feces at 9.9 cm in diameter to the level of the sigmoid colon where there was a twisting of the mesentery compatible with a sigmoid volvulus. The colon distal to the volvulus is collapsed. There is no free air, nor pneumatosis. The remainder of the intraabdominal CT scan is unremarkable. IMPRESSION: Given the patient's clinical history and workup this is obviously consistent with a sigmoid volvulus in relation to what sounds like some progressive constipation. At the present time, there was no sign of any perforation on the CT scan and the abdominal exam is fairly benign other than some distention and diminished bowel sounds. As such, I think it is reasonable he undergo an attempted endoscopic decompression of the volvulus today. General Surgery has been consulted and Dr. Banerjee agrees with the endoscopic approach for the time being. I did review this in detail with the patient and his significant other in detail. Full consent has been obtained from the patient, including risks of bleeding and perforation. We did review that if the procedure is not successful, he would most likely need surgery tonight. We also reviewed the significant potential for recurrence of this problem, even if the initial decompression is successful this evening. If I am able to, I will place a rectal tube past the area of the volvulus to see if that might increase the chances of the area not having a recurrent volvulus. Given the underlying CLL and immunocompromise, he will receive a dose of Zosyn prior to the procedure. This has all been discussed in detail with the patient and his significant other. They are agreeable to the plan. Thank you for the consultation. MD TRINIDAD Hawk/DESIREE / [phone]
--- NOTE | 2024-12-21 07:36 | P.PNGS_ITS ---
Subjective Subjective Date of Service: 12/21/24 <Glenna Marie PA-C - Last Filed: 12/21/24 07:41> 12/21/24 <Kulwant Sterling MD - Last Filed: 12/21/24 12:36> Interval history: Feels significantly improved. Denies any abd pain, distention improved. No nausea or vomiting. <Glenna Marie PA-C - Last Filed: 12/21/24 07:41> Physical Exam 2 Vital Signs: Vital Signs: Last Vital Signs Temp 98.7 F 12/21/24 03:22 Pulse 57 12/21/24 03:22 Resp 16 12/21/24 03:22 BP 125/65 12/21/24 03:22 Pulse Ox 98 12/21/24 03:22 O2 Del Method Room Air 12/21/24 03:22 BMI result Body Mass Index 23.2 <Glenna Marie PA-C - Last Filed: 12/21/24 07:41> Const: General: comfortable, no acute distress and alert <Glenna Marie PA-C - Last Filed: 12/21/24 07:41> Orientation/consciousness: patient oriented x3 <Glenna Marie PA-C - Last Filed: 12/21/24 07:41> Resp: Effort & Inspection: normal respiratory effort <Glenna Marie PA-C - Last Filed: 12/21/24 07:41> GI: Other: rectal tube in place with air, no stool <Glenna Marie PA-C - Last Filed: 12/21/24 07:41> Inspection: Yes distended (mild, improved) <Glenna Marie PA-C - Last Filed: 12/21/24 07:41> Palpation (GI): Soft to palpation, nontender and no guarding <CYDNEY Hampton Last Filed: 12/21/24 07:41> Percussion: Yes normal to percussion <CYDNEY Hampton Last Filed: 12/21/24 07:41> Skin: General skin exam: no rashes or lesions noted <Glenna Marie PA-C - Last Filed: 12/21/24 07:41> Neuro: General: patient oriented x3 and moves all extremities <Glenna Marie PA-C - Last Filed: 12/21/24 07:41> Objective Data Active Medications Acetaminophen (Acetaminophen 325 Mg Tablet) 650 mg PO Q6H PRN PRN Reason: Pain, Mild 1-3,fever,headache Last Admin: 12/20/24 20:49 Dose: 650 mg Documented By: ADALBERTO Amlodipine Besylate (Amlodipine Besylate 10 Mg Tablet) 10 mg PO DAILY [facility]; Protocol Atorvastatin Calcium (Atorvastatin Calcium 40 Mg Tablet) 40 mg PO DAILY [facility] Calcium Carbonate (Calcium Carbonate 750 Mg Tab.Chew) 750 mg PO Q4H PRN PRN Reason: Heartburn Carvedilol (Carvedilol 6.25 Mg Tablet) 6.25 mg PO BID [facility]; Protocol Last Admin: 12/20/24 20:06 Dose: Not Given Documented By: CHRISTOPHER Non-Admin Reason: HR pako Enoxaparin Sodium (Enoxaparin Sodium 40 Mg/0.4 Ml Syringe) 40 mg SUBCUT Q24H [facility] Losartan Potassium (Losartan Potassium 50 Mg Tablet) 100 mg PO DAILY [facility]; Protocol Magnesium Hydroxide (Milk Of Magnesia 30 Ml Oral.Susp) 30 ml PO DAILY PRN PRN Reason: Constipation Melatonin (Melatonin 3 Mg Tablet) 6 mg PO BEDTIME PRN PRN Reason: Insomnia Methocarbamol (Methocarbamol 750 Mg Tablet) 750 mg PO Q6H PRN PRN Reason: muscle spasm Morphine Sulfate (Morphine Sulfate 4 Mg/Ml Cartridge) 4 mg IVPUSH Q4H PRN; Protocol PRN Reason: abd pain Naloxone HCl (Naloxone Hcl 0.4 Mg/Ml Vial) 0.04 mg IVPUSH Q5M PRN PRN Reason: Excessive sedation or RR < 8 Ondansetron HCl (Ondansetron Hcl 4 Mg/2 Ml Vial) 4 mg IVPUSH Q8H PRN PRN Reason: Nausea and Vomiting Sodium Chloride (0.9 % Sodium Chloride Flush 3 Ml Syringe) 3 ml IVFLUSH QSHIFT [facility] Last Admin: 12/21/24 00:40 Dose: Not Given Documented By: CHRISTOPHER Non-Admin Reason: Patient Asleep <Glenna Marie PA-C - Last Filed: 12/21/24 07:41> Labs CBC & Chem 7: 12/21/24 07:15 12/21/24 07:15 <Glenna Marie PA-C - Last Filed: 12/21/24 07:41> Labs: Laboratory Results - last 24 hr 12/20/24 11:00 MCV 98.0 MCH 33.4 H MCHC 34.1 RDW 17.4 H Plt Count 122 L MPV 8.3 L Immature Gran % (Auto) Cancelled Neut % (Auto) Cancelled Lymph % (Auto) Cancelled Cooke % (Auto) Cancelled Eos % (Auto) Cancelled Baso % (Auto) Cancelled Lymph # (Auto) Cancelled [place]oke # (Auto) Cancelled Eos # (Auto) Cancelled Baso # (Auto) Cancelled Abs Immat Gran (auto) Cancelled Absolute Neuts (auto) Cancelled Absolute Nucleated RBC 0.000 Nucleated RBC % (auto) 0.0 Neutrophils % (Manual) 20 L Band Neutrophils % 2 L Lymphocytes % (Manual) 74 H Atypical Lymphs % (Man) 3 Eosinophils % (Manual) 1 Abs Neuts (Manual) 2.4 Lymphocytes # (Manual) 8.1 H Atyp Lymphs # (Manual) 0.3 Eosinophils # (Manual) 0.1 Smudge Cells PRESENT Platelet Estimate DECREASED Plt Morphology Comment NORMAL RBC Morphology NOTED Tear Drop Cells 1+ (0-2) Smear Path Review SEE NOTE Anion Gap 10 L Estim Creat Clear Calc 99.3 Estimated GFR > 60 Random Glucose 108 Calcium 9.5 Magnesium 1.9 Total Bilirubin 0.6 Direct Bilirubin 0.3 AST 49 H ALT 30 Alkaline Phosphatase 159 H Total Protein 7.1 Albumin 4.2 Lipase 49 Influenza Type A (PCR) NEGATIVE Influenza Type B (PCR) NEGATIVE RSV RNA Qual (PCR) NEGATIVE SARS-CoV-2 RNA (RT-PCR) NEGATIVE <Glenna Marie PA-C - Last Filed: 12/21/24 07:41> Procedures Date of Service Date of Service: 12/21/24 <Glenna Marie PA-C - Last Filed: 12/21/24 07:41> 12/21/24 <Kulwant Sterling MD - Last Filed: 12/21/24 12:36> Progress Note: A&P Assessment and plan (1) Sigmoid volvulus: Status: Acute <Glenna Marie PA-C - Last Filed: 12/21/24 07:41> Assessment and Plan: Feels well this morning Denies any abdominal pain Abdomen is soft and benign, not distended, flat, not tender I reviewed his CAT scan images - consistent with sigmoid volvulus with markedly distended redundant sigmoid loop consistent with volvulus This was successfully the torsed last night with flexible sigmoidoscopy I had a long discussion with him about sigmoid volvulus and the treatment. There is a high likelihood that this will recur I explained to him the option of proceeding with sigmoid resection and likely colostomy which may be temporary I had a long discussion with the about the technique of this procedure I reviewed the risks including but not limited to bleeding, infections, bowel injury, inherent risks of anesthesia I told him that we can do surgery as early as tomorrow if he decides to go ahead He states that he would like to avoid surgery at this time. He seems to be depressed as he has had multiple surgeries recently including hip replacements and a cheek surgery for skin cancer I did explain to him that there is a high risk of recurrence and that will come with the possibility of him requiring an emergent procedure He says he understands and stated that he will take his chances? I discussed the above with the hospitalist service I will follow the patient as well while he is in the hospital <Kulwant Sterling MD - Last Filed: 12/21/24 12:36> Assessment and Plan: Admitted with sigmoid volvulus s/p colonoscopy with decompression of sigmoid volvulus yesterday. Abd is very benign this morning, soft, distention improved and nontender. Rectal tube in place with air, no stool. F/u KUB ordered by GI. No clinical evidence of recurrence. Will discuss proceeding with possible bowel prep, sigmoid resection to prevent recurrence. <Glenna Marie PA-C - Last Filed: 12/21/24 07:41> Time Spent With Patient Time: Total time managing care of this patient today ____ minutes. <Glenna Marie PA-C - Last Filed: 12/21/24 07:41> Quality Stroke Does the patient have a stroke diagnosis?: No <Glenna Marie PA-C - Last Filed: 12/21/24 07:41> VTE Prior VTE?: No <Glenna Marie PA-C - Last Filed: 12/21/24 07:41> VTE Risk Level:: Medical - moderate - high <Glenna Marie PA-C - Last Filed: 12/21/24 07:41> VTE Device Contraindication: Treatment Not Indicated <Glenna Marie PA-C - Last Filed: 12/21/24 07:41> VTE Drug Contraindication: N/A - Med Ordered <Glenna Marie PA-C - Last Filed: 12/21/24 07:41>
[2024-12-21 07:59] LABS: Basophils Percent Auto 0.4 % (0-2); Eosinophils Percent Auto 0.4 % (0-4); Hematocrit 28.4 % (42.0-52.0); Hemoglobin 9.6 g/dl (14.0-18.0); Imm Gran Abs Auto 0.02 X10*3/uL (0.00-0.03); Imm Gran Pct Auto 0.2 % (0.0-0.4); MANUAL DIFF FLAG SCAN; Mean Corpuscular HGB Conc 33.8 g/dl (31.0-36.0); Mean Corpuscular Hemoglobin 33.3 pg (27.0-33.0); Mean Corpuscular Volume 98.6 fL (80.0-98.0); Monocytes Absolute Auto 0.2 X10*3/uL (0.1-1.2); Neutrophils Absolute Auto 2.3 x10*3/uL (2.0-8.3); Platelet Count 125 X10*3/uL (160-400); Red Blood Count 2.88 X10*6/uL (4.60-5.80); Red Cell Distribution Width 17.6 % (11.0-16.0); SCAN SMEAR FLAG 1
[2024-12-21 08:00] LABS: Lymphocytes Absolute Auto 7.4 X10*3/uL (1.2-4.9)
--- NOTE | 2024-12-21 08:06 | HO.POSTANES ---
Post Anesthesia Evaluation Post Anesthesia Evaluation Date of Service: 12/21/24 Vital Signs: Vital Signs Temp Pulse Resp BP Pulse Ox O2 Del Method 12/21/24 07:55 98.0 F 58 20 122/65 98 Room Air 12/21/24 03:22 98.7 F 57 16 125/65 98 Room Air 12/20/24 23:26 97.7 F 58 16 137/71 98 Room Air Anesthesia: Monitored Mental Status: Awake Pain Control: Satisfactory Nausea/Vomiting: None Hydration: Adequate Anesthesia-Related Issues: No Anes. Related Issues
[2024-12-21] MEDS: amLODIPine Besylate 10 MG TABLET PO (08:19)
[2024-12-21] MEDS: Enoxaparin Sodium 40 MG/0.4 ML SYRINGE SUBCUT (08:19)
[2024-12-21] MEDS: Losartan Potassium 50 MG TABLET 100 MG PO (08:19)
[2024-12-21] MEDS: Atorvastatin Calcium 40 MG TABLET PO (08:19)
[2024-12-21] MEDS: 0.9 % Sodium Chloride Flush 3 ML SYRINGE IVFLUSH ×2 (08:22→21:19)
[2024-12-21] MEDS: Acetaminophen 325 MG TABLET 650 MG PO ×2 (08:22→21:22)
[2024-12-21 08:26] LABS: Alanine Aminotransferase 20 U/L (0-40); Albumin Level 3.5 g/dL (3.5-5.0); Alkaline Phosphatase 130 U/L (39-117); Anion Gap 10 (12-20); Aspartate Amino Transferase 40 U/L (5-37); Bilirubin Total 0.6 mg/dL (0.0-1.0); Blood Urea Nitrogen 10 mg/dL (9-16); Calcium 8.3 mg/dL (8.4-10.2); Carbon Dioxide 26 mmol/L (22-29); Chloride 100 mmol/L (96-108); Creatinine Clr Calc Pharmacy 105.8; Estimated Glomerular Filt Rate > 60; Glucose Random 82 mg/dL (60-115); Potassium 3.6 mmol/L (3.3-5.1); Sodium 132 mmol/L (135-145); Total Protein 5.8 g/dL (6.5-8.0)
[2024-12-21 08:58] LABS: SLIDE REVIEW VERIFIED
--- NOTE | 2024-12-21 08:58 | MHC.CM.PN ---
IMM 12/21/24, PT W/SIGMOID VOLVULUS, S/P POD1, CM MET W/PT WHO IS A&O, PT REPORTS HE LIVES W/S.O., REPORTS HE HAS A WALKER/CANE AND IS CURRENTLY USING HIS WALKER, PT REPORTS OUTPT PT AT [facility] PT IN [place] AND GOAL IS TO STAT USING CANE AND THEN BE BACK TO INDEP AMBULATION IN A FEW MONTHS. PT VERIFIES HIS PCP IS DR. DOUGHERTY, PT SEES ONCOLOGY AT [facility] AND REPORTS HIS HCP SHOULD BE ON FILE AT [facility] AND REQUEST FAXED.
--- NOTE | 2024-12-21 15:08 | P.PNIM_ITS ---
Subjective Subjective Date of Service: 12/21/24 Interval History: No acute issues overnight after GI procedure. Tolerating rectal tube Review of Systems Denies chest pain Denies shortness of breath Denies vomiting; admits nausea and diarrhea Admits to diffuse lower abdominal pain and cramping Denies fever chills Physical Exam 2 Vital Signs: Vital Signs: Last Vital Signs Temp 98.6 F 12/21/24 15:04 Pulse 63 12/21/24 15:04 Resp 18 12/21/24 15:04 BP 118/62 12/21/24 15:04 Pulse Ox 97 12/21/24 15:04 O2 Del Method Room Air 12/21/24 15:04 BMI result Body Mass Index 23.2 Const: Other: Awake alert no acute distress lying quietly in bed Resp: Other: Clear to auscultation bilaterally no rales rhonchi or wheezes Cardio: Other: No S4; positive S1-S2; no S3 murmurs rubs or gallops GI: Other: Mildly distended with diffuse tenderness across lower abdomen without rebound. Bowel sounds quiet Neuro: Other: Cranial nerves 2-12 grossly intact as tested. Motor is 5/5 all extremities. Sensation is intact. Cognition appropriate. Gait not observed Extrem: Other: No edema bilaterally Objective Data Active Medications Acetaminophen (Acetaminophen 325 Mg Tablet) 650 mg PO Q6H PRN PRN Reason: Pain, Mild 1-3,fever,headache Last Admin: 12/21/24 08:22 Dose: 650 mg Documented By: ANNETTE Amlodipine Besylate (Amlodipine Besylate 10 Mg Tablet) 10 mg PO DAILY [facility]; Protocol Last Admin: 12/21/24 08:19 Dose: 10 mg Documented By: ANNETTE Atorvastatin Calcium (Atorvastatin Calcium 40 Mg Tablet) 40 mg PO DAILY [facility] Last Admin: 12/21/24 08:19 Dose: 40 mg Documented By: ANNETTE Calcium Carbonate (Calcium Carbonate 750 Mg Tab.Chew) 750 mg PO Q4H PRN PRN Reason: Heartburn Carvedilol (Carvedilol 6.25 Mg Tablet) 6.25 mg PO BID [facility]; Protocol Last Admin: 12/21/24 08:18 Dose: Not Given Documented By: ANNETTE Non-Admin Reason: Decreased Heart Rate Enoxaparin Sodium (Enoxaparin Sodium 40 Mg/0.4 Ml Syringe) 40 mg SUBCUT Q24H [facility] Last Admin: 12/21/24 08:19 Dose: 40 mg Documented By: ANNETTE Losartan Potassium (Losartan Potassium 50 Mg Tablet) 100 mg PO DAILY [facility]; Protocol Last Admin: 12/21/24 08:19 Dose: 100 mg Documented By: ANNETTE Magnesium Hydroxide (Milk Of Magnesia 30 Ml Oral.Susp) 30 ml PO DAILY PRN PRN Reason: Constipation Melatonin (Melatonin 3 Mg Tablet) 6 mg PO BEDTIME PRN PRN Reason: Insomnia Methocarbamol (Methocarbamol 750 Mg Tablet) 750 mg PO Q6H PRN PRN Reason: muscle spasm Morphine Sulfate (Morphine Sulfate 4 Mg/Ml Cartridge) 4 mg IVPUSH Q4H PRN; Protocol PRN Reason: abd pain Naloxone HCl (Naloxone Hcl 0.4 Mg/Ml Vial) 0.04 mg IVPUSH Q5M PRN PRN Reason: Excessive sedation or RR < 8 Ondansetron HCl (Ondansetron Hcl 4 Mg/2 Ml Vial) 4 mg IVPUSH Q8H PRN PRN Reason: Nausea and Vomiting Sodium Chloride (0.9 % Sodium Chloride Flush 3 Ml Syringe) 3 ml IVFLUSH QSHIFT [facility] Last Admin: 12/21/24 08:22 Dose: 3 ml Documented By: ANNETTE Labs 12/21/24 07:15 12/21/24 07:15 Labs: Laboratory Results - last 24 hr 12/21/24 07:15 MCV 98.6 H MCH 33.3 H MCHC 33.8 RDW 17.6 H Plt Count 125 L MPV 9.0 L Immature Gran % (Auto) 0.2 Neut % (Auto) 23.0 L Lymph % (Auto) 74.0 H [place] % (Auto) 2.0 Eos % (Auto) 0.4 Baso % (Auto) 0.4 Lymph # (Auto) 7.4 H [place] # (Auto) 0.2 Eos # (Auto) 0.0 Baso # (Auto) 0.0 Abs Immat Gran (auto) 0.02 Absolute Neuts (auto) 2.3 Absolute Nucleated RBC 0.000 Nucleated RBC % (auto) 0.0 Smear Tech's Comments VERIFIED Anion Gap 10 L Estim Creat Clear Calc 105.8 Estimated GFR > 60 Random Glucose 82 Calcium 8.3 L D Total Bilirubin 0.6 AST 40 H ALT 20 Alkaline Phosphatase 130 H Total Protein 5.8 L Albumin 3.5 Assessment and Plan (1) Sigmoid volvulus: Status: Acute (2) HTN (hypertension): Status: Acute (3) HLD (hyperlipidemia): Status: Acute (4) Coronary artery disease: Status: Acute Plan 74-year-old male with a history of CLL, 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 Initial workup consistent with sigmoid volvulus 1. Sigmoid volvulus -successful decompression by GI -x-ray this a.m. markedly improved -advance diet as tolerated; rectal tube management as per GI/surgery 2. Coronary artery disease (past history of stenting) -stable and well compensated as endorsed by patient -continue outpatient therapies -telemetry postprocedure 3. Hypertension -acceptable control on current therapies -resume outpatient therapies in a.m. as indicated 4. Hyperlipidemia -continue outpatient statin dosing DNR DNI Lovenox (to start in a.m. if appropriate) Requires ongoing hospitalization for continued decompression of/rectal tube and specialty consultation Quality Stroke Does the patient have a stroke diagnosis?: No VTE Prior VTE?: No VTE Risk Level:: Medical - moderate - high VTE Device Contraindication: Treatment Not Indicated VTE Drug Contraindication: N/A - Med Ordered
--- NOTE | 2024-12-21 19:40 | PM.GIPN ---
Subjective Subjective Date of Service: 12/21/24 Interval History: Surgeon's note reviewed. Patient seen at 1PM. He reports feeling much better. Denies abdominal pain, abdominal distention, or N/V. He is hungry. Critical Care Time (minutes): 0 Physical Exam Vital Signs: Vital Signs: Last Vital Signs Temp 97.7 F 12/21/24 19:07 Pulse 60 12/21/24 19:07 Resp 20 12/21/24 19:07 BP 115/70 12/21/24 19:07 Pulse Ox 97 12/21/24 19:07 O2 Del Method Room Air 12/21/24 19:07 BMI result Body Mass Index 23.2 Const: General: cooperative, comfortable, no acute distress, well developed, alert and awake GI: Other: Abd-soft, nondistended, NT, no mass Objective Data Labs 12/21/24 07:15 12/21/24 07:15 Labs: Laboratory Results - last 24 hr 12/21/24 07:15 WBC 10.0 RBC 2.88 L Hgb 9.6 L Hct 28.4 L MCV 98.6 H MCH 33.3 H MCHC 33.8 RDW 17.6 H Plt Count 125 L MPV 9.0 L Immature Gran % (Auto) 0.2 Neut % (Auto) 23.0 L Lymph % (Auto) 74.0 H [place] % (Auto) 2.0 Eos % (Auto) 0.4 Baso % (Auto) 0.4 Lymph # (Auto) 7.4 H [place] # (Auto) 0.2 Eos # (Auto) 0.0 Baso # (Auto) 0.0 Abs Immat Gran (auto) 0.02 Absolute Neuts (auto) 2.3 Absolute Nucleated RBC 0.000 Nucleated RBC % (auto) 0.0 Smear Tech's Comments VERIFIED Sodium 132 L Potassium 3.6 Chloride 100 Carbon Dioxide 26 Anion Gap 10 L BUN 10 Creatinine 0.71 Estim Creat Clear Calc 105.8 Estimated GFR > 60 Random Glucose 82 Calcium 8.3 L D Total Bilirubin 0.6 AST 40 H ALT 20 Alkaline Phosphatase 130 H Total Protein 5.8 L Albumin 3.5 Imaging Abdominal x-ray: Radiologist's impression: Resolved volvulus. No bowel obtruction or free air Procedures Date of Service Date of Service: 12/21/24 Progress Note: A&P Assessment and plan (1) Sigmoid volvulus: Status: Acute Assessment and Plan: Imp: Resolved sigmoid volvulus after endoscopic decompression last evening with subsequent placement of a rectal tube. He is much improved clinically with a benign abdominal exam and a normal abdominal xray. He has refused surgical intervention despite Dr. Sterling's detailed explanation. I reviewed the potential for sigmoid volvulus recurrence with the patient and his significant other as well. Rec: Since he is refusing surgery I would advance his diet slowly, remove rectal tube tomorrow 12/22, increase patient mobility if possible, and continue his bowel regimen both here and at home. If the volvulus recurs he will definitely need surgical intervention. D/W patient and his significant other. Thanks Time Spent With Patient Time: Total time managing care of this patient today ____ minutes. Quality Stroke Does the patient have a stroke diagnosis?: No VTE Prior VTE?: No VTE Risk Level:: Medical - moderate - high VTE Device Contraindication: Treatment Not Indicated VTE Drug Contraindication: N/A - Med Ordered
[2024-12-21] MEDS: carvediloL 6.25 MG TABLET PO (21:18)
[2024-12-22 03:28] VITALS: BP 111/62; PULSE 59; RESP 19; TEMP 36.2; O2SAT 96
[2024-12-22] MEDS: Acetaminophen 325 MG TABLET 650 MG PO ×2 (05:07→20:23)
[2024-12-22 07:04] LABS: Basophils Percent Auto 0.3 % (0-2); Eosinophils Percent Auto 0.4 % (0-4); Hematocrit 27.8 % (42.0-52.0); Hemoglobin 9.6 g/dl (14.0-18.0); Imm Gran Abs Auto 0.02 X10*3/uL (0.00-0.03); Imm Gran Pct Auto 0.2 % (0.0-0.4); Lymphocytes Percent Auto 74.3 % (20-40); MANUAL DIFF FLAG SCAN; Mean Corpuscular HGB Conc 34.5 g/dl (31.0-36.0); Mean Corpuscular Hemoglobin 33.1 pg (27.0-33.0); Mean Corpuscular Volume 95.9 fL (80.0-98.0); Mean Platelet Volume 8.5 fL (9.4-12.4); Monocytes Absolute Auto 0.2 X10*3/uL (0.1-1.2); Neutrophils Absolute Auto 2.2 x10*3/uL (2.0-8.3); Neutrophils Percent Auto 22.8 % (45-73); Platelet Count 118 X10*3/uL (160-400); Red Cell Distribution Width 17.4 % (11.0-16.0); SCAN SMEAR FLAG 1; White Blood Count 9.7 X10*3/uL (4.8-10.8)
[2024-12-22 07:16] LABS: Lymphocytes Absolute Auto 7.2 X10*3/uL (1.2-4.9)
[2024-12-22 07:27] LABS: Alanine Aminotransferase 15 U/L (0-40); Albumin Level 3.3 g/dL (3.5-5.0); Alkaline Phosphatase 123 U/L (39-117); Anion Gap 11 (12-20); Aspartate Amino Transferase 34 U/L (5-37); Bilirubin Total 0.6 mg/dL (0.0-1.0); Blood Urea Nitrogen 9 mg/dL (9-16); Calcium 8.5 mg/dL (8.4-10.2); Carbon Dioxide 25 mmol/L (22-29); Chloride 97 mmol/L (96-108); Creatinine Clr Calc Pharmacy 113.8; Estimated Glomerular Filt Rate > 60; Glucose Fasting 80 mg/dL (60-99); Potassium 3.5 mmol/L (3.3-5.1); Sodium 129 mmol/L (135-145); Total Protein 5.6 g/dL (6.5-8.0)
[2024-12-22 07:34] VITALS: BP 116/69; PULSE 53; RESP 18; TEMP 37; O2SAT 97
--- NOTE | 2024-12-22 07:48 | P.PNGS_ITS ---
Subjective Subjective Date of Service: 12/22/24 <Glenna Marie PA-C - Last Filed: 12/22/24 07:56> 12/22/24 <Kulwant Sterling MD - Last Filed: 12/22/24 08:30> Interval history: Feels well this morning. Denies any abd pain, tolerating liquids. Still would like to hold off on elective colectomy. <Glenna Marie PA-C - Last Filed: 12/22/24 07:56> Physical Exam 2 Vital Signs: Vital Signs: Last Vital Signs Temp 98.6 F 12/22/24 07:34 Pulse 53 12/22/24 07:34 Resp 18 12/22/24 07:34 BP 116/69 12/22/24 07:34 Pulse Ox 97 12/22/24 07:34 O2 Del Method Room Air 12/22/24 07:34 BMI result Body Mass Index 23.2 <Glenna Marie PA-C - Last Filed: 12/22/24 07:56> Const: Orientation/consciousness: patient oriented x3 <Glenna Marie PA-C - Last Filed: 12/22/24 07:56> Resp: Effort & Inspection: normal respiratory effort <Glenna Marie PA-C - Last Filed: 12/22/24 07:56> GI: Inspection: Yes distended (very mild ) <Glenna Marie PA-C - Last Filed: 12/22/24 07:56> Palpation (GI): Soft to palpation, nontender and no guarding <Glenna Marie PA-C - Last Filed: 12/22/24 07:56> Percussion: Yes normal to percussion <Glenna Marie PA-C - Last Filed: 12/22/24 07:56> Neuro: General: patient oriented x3 and moves all extremities <CYDNEY [place] Last Filed: 12/22/24 07:56> Objective Data Active Medications Acetaminophen (Acetaminophen 325 Mg Tablet) 650 mg PO Q6H PRN PRN Reason: Pain, Mild 1-3,fever,headache Last Admin: 12/22/24 05:07 Dose: 650 mg Documented By: ROSA ELENA Amlodipine Besylate (Amlodipine Besylate 10 Mg Tablet) 10 mg PO DAILY [facility]; Protocol Last Admin: 12/21/24 08:19 Dose: 10 mg Documented By: ANNETTE Atorvastatin Calcium (Atorvastatin Calcium 40 Mg Tablet) 40 mg PO DAILY [facility] Last Admin: 12/21/24 08:19 Dose: 40 mg Documented By: ANNETTE Calcium Carbonate (Calcium Carbonate 750 Mg Tab.Chew) 750 mg PO Q4H PRN PRN Reason: Heartburn Carvedilol (Carvedilol 6.25 Mg Tablet) 6.25 mg PO BID [facility]; Protocol Last Admin: 12/21/24 21:18 Dose: 6.25 mg Documented By: ROSA ELENA Enoxaparin Sodium (Enoxaparin Sodium 40 Mg/0.4 Ml Syringe) 40 mg SUBCUT Q24H [facility] Last Admin: 12/21/24 08:19 Dose: 40 mg Documented By: ANNETTE Losartan Potassium (Losartan Potassium 50 Mg Tablet) 100 mg PO DAILY [facility]; Protocol Last Admin: 12/21/24 08:19 Dose: 100 mg Documented By: ANNETTE Magnesium Hydroxide (Milk Of Magnesia 30 Ml Oral.Susp) 30 ml PO DAILY PRN PRN Reason: Constipation Melatonin (Melatonin 3 Mg Tablet) 6 mg PO BEDTIME PRN PRN Reason: Insomnia Methocarbamol (Methocarbamol 750 Mg Tablet) 750 mg PO Q6H PRN PRN Reason: muscle spasm Morphine Sulfate (Morphine Sulfate 4 Mg/Ml Cartridge) 4 mg IVPUSH Q4H PRN; Protocol PRN Reason: abd pain Naloxone HCl (Naloxone Hcl 0.4 Mg/Ml Vial) 0.04 mg IVPUSH Q5M PRN PRN Reason: Excessive sedation or RR < 8 Ondansetron HCl (Ondansetron Hcl 4 Mg/2 Ml Vial) 4 mg IVPUSH Q8H PRN PRN Reason: Nausea and Vomiting Sodium Chloride (0.9 % Sodium Chloride Flush 3 Ml Syringe) 3 ml IVFLUSH QSHIFT [facility] Last Admin: 12/21/24 21:19 Dose: 3 ml Documented By: ROSA ELENA <Glenna Marie PA-C - Last Filed: 12/22/24 07:56> Labs CBC & Chem 7: 12/22/24 06:00 12/22/24 06:00 <Glenna Marie PA-C - Last Filed: 12/22/24 07:56> Labs: Laboratory Results - last 24 hr 12/21/24 12/22/24 07:15 06:00 MCV 98.6 H 95.9 MCH 33.3 H 33.1 H MCHC 33.8 34.5 RDW 17.6 H 17.4 H Plt Count 125 L 118 L MPV 9.0 L 8.5 L Immature Gran % (Auto) 0.2 Neut % (Auto) 23.0 L Lymph % (Auto) 74.0 H [place] % (Auto) 2.0 Eos % (Auto) 0.4 Baso % (Auto) 0.4 Lymph # (Auto) 7.4 H [place] # (Auto) 0.2 Eos # (Auto) 0.0 Baso # (Auto) 0.0 Abs Immat Gran (auto) 0.02 Absolute Neuts (auto) 2.3 Absolute Nucleated RBC 0.000 Nucleated RBC % (auto) 0.0 Smear Tech's Comments VERIFIED Anion Gap 10 L 11 L Estim Creat Clear Calc 105.8 113.8 Estimated GFR > 60 > 60 Random Glucose 82 Fasting Glucose 80 Calcium 8.3 L D 8.5 Total Bilirubin 0.6 0.6 AST 40 H 34 ALT 20 15 Alkaline Phosphatase 130 H 123 H Total Protein 5.8 L 5.6 L Albumin 3.5 3.3 L <Glenna Marie PA-C - Last Filed: 12/22/24 07:56> Procedures Date of Service Date of Service: 12/22/24 <Glenna Marie PA-C - Last Filed: 12/22/24 07:56> 12/22/24 <Kulwant Sterling MD - Last Filed: 12/22/24 08:30> Progress Note: A&P Assessment and plan (1) Sigmoid volvulus: Status: Acute <Glenna Marie PA-C - Last Filed: 12/22/24 07:56> Assessment and Plan: Denies any abdominal pain Tolerating clear liquids Feels well overall Abdomen is soft, benign, nondistended He states he does not want to undergo surgery He says he is willing to take the risk of having a recurrence Okay to advance diet Seen and examined independently <Kulwant Sterling MD - Last Filed: 12/22/24 08:30> Assessment and Plan: No evidence of volvulus recurrence. Has good understanding of possible recurrence and risks associated if he does not proceed with sigmoid resection. Ok to dc rectal tube, advance diet. Patient comfortable with plan. Increase activity. <Glenna Marie PA-C - Last Filed: 12/22/24 07:56> Time Spent With Patient Time: Total time managing care of this patient today ____ minutes. <Glenna Marie PA-C - Last Filed: 12/22/24 07:56> Quality Stroke Does the patient have a stroke diagnosis?: No <Glenna Marie PA-C - Last Filed: 12/22/24 07:56> VTE Prior VTE?: No <Glenna Marie PA-C - Last Filed: 12/22/24 07:56> VTE Risk Level:: Medical - moderate - high <Glenna Marie PA-C - Last Filed: 12/22/24 07:56> VTE Device Contraindication: Treatment Not Indicated <Glenna Marie PA-C - Last Filed: 12/22/24 07:56> VTE Drug Contraindication: N/A - Med Ordered <Glenna Marie PA-C - Last Filed: 12/22/24 07:56>
[2024-12-22] MEDS: 0.9 % Sodium Chloride Flush 3 ML SYRINGE IVFLUSH ×3 (08:03→20:21)
[2024-12-22] MEDS: Losartan Potassium 50 MG TABLET 100 MG PO (08:05)
[2024-12-22] MEDS: amLODIPine Besylate 10 MG TABLET PO (08:05)
[2024-12-22] MEDS: carvediloL 6.25 MG TABLET PO ×2 (08:05→20:21)
[2024-12-22] MEDS: Enoxaparin Sodium 40 MG/0.4 ML SYRINGE SUBCUT (08:07)
[2024-12-22] MEDS: Atorvastatin Calcium 40 MG TABLET PO (08:07)
[2024-12-22 08:19] VITALS: PULSE 64
[2024-12-22 08:30] LABS: SLIDE REVIEW VERIFIED
--- NOTE | 2024-12-22 09:22 | MHC.CM.PN ---
EMR REVIEWED, PER SURGICAL NOTES PT DECLINING FURTHER SURGERY, PLAN TO REMOVE RECTAL TUBE, DIET ADVANCED AND INCREASE ACTIVITY, PER GI PT AND S.O. AWARE IF HE HAS ANOTHER EPISODE HE WILL NEED SURGICAL INTERVENTION, CM WILL CONT TO FOLLOW DC NEEDS.
--- NOTE | 2024-12-22 13:39 | HO.PM.IMPN ---
Subjective Subjective Date of Service: 12/22/24 Interval History: Doing extremely well overnight. Rectal tube removed this morning. Tolerating diet Review of Systems Denies chest pain Denies shortness of breath Denies vomiting; admits nausea and diarrhea Admits to diffuse lower abdominal pain and cramping Denies fever chills Physical Exam Vital Signs: Vital Signs: Last Vital Signs Temp 98.6 F 12/22/24 07:34 Pulse 64 12/22/24 08:19 Resp 18 12/22/24 07:34 BP 116/69 12/22/24 07:34 Pulse Ox 97 12/22/24 07:34 O2 Del Method Room Air 12/22/24 07:34 BMI result Body Mass Index 23.2 Const: Other: Awake alert no acute distress lying quietly in bed Resp: Other: Clear to auscultation bilaterally no rales rhonchi or wheezes Cardio: Other: No S4; positive S1-S2; no S3 murmurs rubs or gallops GI: Other: Mildly distended with diffuse tenderness across lower abdomen without rebound. Bowel sounds quiet Neuro: Other: Cranial nerves 2-12 grossly intact as tested. Motor is 5/5 all extremities. Sensation is intact. Cognition appropriate. Gait not observed Extrem: Other: No edema bilaterally Objective Data Active Medications Acetaminophen (Acetaminophen 325 Mg Tablet) 650 mg PO Q6H PRN PRN Reason: Pain, Mild 1-3,fever,headache Last Admin: 12/22/24 05:07 Dose: 650 mg Documented By: ROSA ELENA Amlodipine Besylate (Amlodipine Besylate 10 Mg Tablet) 10 mg PO DAILY [facility]; Protocol Last Admin: 12/22/24 08:05 Dose: 10 mg Documented By: JHOANA Atorvastatin Calcium (Atorvastatin Calcium 40 Mg Tablet) 40 mg PO DAILY [facility] Last Admin: 12/22/24 08:07 Dose: 40 mg Documented By: JHOANA Calcium Carbonate (Calcium Carbonate 750 Mg Tab.Chew) 750 mg PO Q4H PRN PRN Reason: Heartburn Carvedilol (Carvedilol 6.25 Mg Tablet) 6.25 mg PO BID [facility]; Protocol Last Admin: 12/22/24 08:05 Dose: 6.25 mg Documented By: JHOANA Enoxaparin Sodium (Enoxaparin Sodium 40 Mg/0.4 Ml Syringe) 40 mg SUBCUT Q24H [facility] Last Admin: 12/22/24 08:07 Dose: 40 mg Documented By: JHOANA Losartan Potassium (Losartan Potassium 50 Mg Tablet) 100 mg PO DAILY [facility]; Protocol Last Admin: 12/22/24 08:05 Dose: 100 mg Documented By: JHOANA Magnesium Hydroxide (Milk Of Magnesia 30 Ml Oral.Susp) 30 ml PO DAILY PRN PRN Reason: Constipation Melatonin (Melatonin 3 Mg Tablet) 6 mg PO BEDTIME PRN PRN Reason: Insomnia Methocarbamol (Methocarbamol 750 Mg Tablet) 750 mg PO Q6H PRN PRN Reason: muscle spasm Morphine Sulfate (Morphine Sulfate 4 Mg/Ml Cartridge) 4 mg IVPUSH Q4H PRN; Protocol PRN Reason: abd pain Naloxone HCl (Naloxone Hcl 0.4 Mg/Ml Vial) 0.04 mg IVPUSH Q5M PRN PRN Reason: Excessive sedation or RR < 8 Ondansetron HCl (Ondansetron Hcl 4 Mg/2 Ml Vial) 4 mg IVPUSH Q8H PRN PRN Reason: Nausea and Vomiting Sodium Chloride (0.9 % Sodium Chloride Flush 3 Ml Syringe) 3 ml IVFLUSH QSHIFT [facility] Last Admin: 12/22/24 08:03 Dose: 3 ml Documented By: JHOANA Labs 12/22/24 06:00 12/22/24 06:00 Labs: Laboratory Results - last 24 hr 12/22/24 06:00 MCV 95.9 MCH 33.1 H MCHC 34.5 RDW 17.4 H Plt Count 118 L MPV 8.5 L Immature Gran % (Auto) 0.2 Neut % (Auto) 22.8 L Lymph % (Auto) 74.3 H [place] % (Auto) 2.0 Eos % (Auto) 0.4 Baso % (Auto) 0.3 Lymph # (Auto) 7.2 H [place] # (Auto) 0.2 Eos # (Auto) 0.0 Baso # (Auto) 0.0 Abs Immat Gran (auto) 0.02 Absolute Neuts (auto) 2.2 Absolute Nucleated RBC 0.000 Nucleated RBC % (auto) 0.0 Smear Tech's Comments VERIFIED Anion Gap 11 L Estim Creat Clear Calc 113.8 Estimated GFR > 60 Fasting Glucose 80 Calcium 8.5 Total Bilirubin 0.6 AST 34 ALT 15 Alkaline Phosphatase 123 H Total Protein 5.6 L Albumin 3.3 L Assessment and Plan (1) Sigmoid volvulus: Status: Acute (2) HTN (hypertension): Status: Acute Plan 74-year-old male with a history of CLL, 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 Initial workup consistent with sigmoid volvulus 1. Sigmoid volvulus -rectal tube removed this a.m. -tolerating regular diet -follow overnight; consider DC in a.m. if tolerating diet 2. Coronary artery disease (past history of stenting) -stable and well compensated as endorsed by patient -continue outpatient therapies 3. Hypertension -acceptable control on current therapies -resume outpatient therapies in a.m. as indicated 4. Hyperlipidemia -continue outpatient statin dosing DNR DNI Lovenox (to start in a.m. if appropriate) Requires ongoing hospitalization for continued decompression of/rectal tube and specialty consultation Quality Stroke Does the patient have a stroke diagnosis?: No VTE Prior VTE?: No VTE Risk Level:: Medical - moderate - high VTE Device Contraindication: Treatment Not Indicated VTE Drug Contraindication: N/A - Med Ordered
[2024-12-22 15:18] VITALS: BP 139/70; PULSE 60; RESP 18; TEMP 37; O2SAT 99
[2024-12-22 19:49] VITALS: BP 154/78; PULSE 80; RESP 19; TEMP 36.5; O2SAT 98
[2024-12-22 23:48] VITALS: BP 130/71; PULSE 59; RESP 19; TEMP 36.7; O2SAT 98
[2024-12-23 03:55] VITALS: BP 122/70; PULSE 52; RESP 19; TEMP 36.8; O2SAT 98
[2024-12-23 07:40] VITALS: BP 137/69; PULSE 55; RESP 20; TEMP 36.2; O2SAT 98
--- NOTE | 2024-12-23 08:03 | PM.PNGS ---
Subjective Subjective Date of Service: 12/23/24 Interval history: feels well tolerating diet passing flatus Physical Exam Vital Signs: Vital Signs: Last Vital Signs Temp 97.2 F 12/23/24 07:40 Pulse 55 12/23/24 07:40 Resp 20 12/23/24 07:40 BP 137/69 12/23/24 07:40 Pulse Ox 98 12/23/24 07:40 O2 Del Method Room Air 12/23/24 07:40 BMI result Body Mass Index 23.2 Const: General: comfortable and no acute distress Resp: Effort & Inspection: normal respiratory effort Cardio: Rate: regular rate GI: Palpation (GI): Soft to palpation, not firm, nontender and no guarding Objective Data Active Medications Acetaminophen (Acetaminophen 325 Mg Tablet) 650 mg PO Q6H PRN PRN Reason: Pain, Mild 1-3,fever,headache Last Admin: 12/22/24 20:23 Dose: 650 mg Documented By: SABRINA Amlodipine Besylate (Amlodipine Besylate 10 Mg Tablet) 10 mg PO DAILY [facility]; Protocol Last Admin: 12/22/24 08:05 Dose: 10 mg Documented By: JHOANA Atorvastatin Calcium (Atorvastatin Calcium 40 Mg Tablet) 40 mg PO DAILY [facility] Last Admin: 12/22/24 08:07 Dose: 40 mg Documented By: JHOANA Calcium Carbonate (Calcium Carbonate 750 Mg Tab.Chew) 750 mg PO Q4H PRN PRN Reason: Heartburn Carvedilol (Carvedilol 6.25 Mg Tablet) 6.25 mg PO BID [facility]; Protocol Last Admin: 12/22/24 20:21 Dose: 6.25 mg Documented By: SABRINA Enoxaparin Sodium (Enoxaparin Sodium 40 Mg/0.4 Ml Syringe) 40 mg SUBCUT Q24H [facility] Last Admin: 12/22/24 08:07 Dose: 40 mg Documented By: JHOANA Losartan Potassium (Losartan Potassium 50 Mg Tablet) 100 mg PO DAILY [facility]; Protocol Last Admin: 12/22/24 08:05 Dose: 100 mg Documented By: JHOANA Magnesium Hydroxide (Milk Of Magnesia 30 Ml Oral.Susp) 30 ml PO DAILY PRN PRN Reason: Constipation Melatonin (Melatonin 3 Mg Tablet) 6 mg PO BEDTIME PRN PRN Reason: Insomnia Methocarbamol (Methocarbamol 750 Mg Tablet) 750 mg PO Q6H PRN PRN Reason: muscle spasm Morphine Sulfate (Morphine Sulfate 4 Mg/Ml Cartridge) 4 mg IVPUSH Q4H PRN; Protocol PRN Reason: abd pain Naloxone HCl (Naloxone Hcl 0.4 Mg/Ml Vial) 0.04 mg IVPUSH Q5M PRN PRN Reason: Excessive sedation or RR < 8 Ondansetron HCl (Ondansetron Hcl 4 Mg/2 Ml Vial) 4 mg IVPUSH Q8H PRN PRN Reason: Nausea and Vomiting Sodium Chloride (0.9 % Sodium Chloride Flush 3 Ml Syringe) 3 ml IVFLUSH QSHIFT [facility] Last Admin: 12/22/24 20:21 Dose: 3 ml Documented By: SABRINA Labs 12/22/24 06:00 12/22/24 06:00 Labs: Laboratory Results - last 24 hr 12/22/24 06:00 Immature Gran % (Auto) 0.2 Neut % (Auto) 22.8 L Lymph % (Auto) 74.3 H [place] % (Auto) 2.0 Eos % (Auto) 0.4 Baso % (Auto) 0.3 Lymph # (Auto) 7.2 H [place] # (Auto) 0.2 Eos # (Auto) 0.0 Baso # (Auto) 0.0 Abs Immat Gran (auto) 0.02 Absolute Neuts (auto) 2.2 Absolute Nucleated RBC 0.000 Nucleated RBC % (auto) 0.0 Smear Tech's Comments VERIFIED Procedures Date of Service Date of Service: 12/23/24 Progress Note: A&P Assessment and plan (1) Sigmoid volvulus: Status: Acute Assessment and Plan: resolved with flexible sigmoidoscopy doing well good GI function sigmoid resection recommended for risk of recurrence he is refusing any surgical intervention he states he will take his chances rest of care as per hospitalist service Time Spent With Patient Time: Total time managing care of this patient today ____ minutes. Quality Stroke Does the patient have a stroke diagnosis?: No VTE Prior VTE?: No VTE Risk Level:: Medical - moderate - high VTE Device Contraindication: Treatment Not Indicated VTE Drug Contraindication: N/A - Med Ordered
[2024-12-23] MEDS: amLODIPine Besylate 10 MG TABLET PO (09:00)
[2024-12-23] MEDS: carvediloL 6.25 MG TABLET PO (09:00)
[2024-12-23] MEDS: Enoxaparin Sodium 40 MG/0.4 ML SYRINGE SUBCUT (09:00)
[2024-12-23] MEDS: Atorvastatin Calcium 40 MG TABLET PO (09:00)
[2024-12-23] MEDS: Losartan Potassium 50 MG TABLET 100 MG PO (09:00)
[2024-12-23] MEDS: 0.9 % Sodium Chloride Flush 3 ML SYRINGE IVFLUSH (09:06)
[2024-12-23 09:27] LABS: Anion Gap 9 (12-20); Blood Urea Nitrogen 7 mg/dL (9-16); Calcium 8.4 mg/dL (8.4-10.2); Carbon Dioxide 28 mmol/L (22-29); Chloride 99 mmol/L (96-108); Creatinine Clr Calc Pharmacy 110.5; Estimated Glomerular Filt Rate > 60; Glucose Random 83 mg/dL (60-115); Potassium 3.6 mmol/L (3.3-5.1); Sodium 132 mmol/L (135-145)
--- NOTE | 2024-12-23 09:53 | P.DS_ITS ---
DS: Providers Provider Date of Service: 12/23/24 Date of admission: 12/20/24 17:28 Date of discharge: 12/23/24 Primary care physician: Aminata Moreno MD Consults: 12/20/24 15:49 Consult to Gastroenterology Stat Consulting Provider: Eliseo Tineo Reason for consultation: sigmoid volvulus Has provider been notified: Yes 12/20/24 16:00 Consult to General Surgery Routine Consulting Provider: [facility] Reason for consultation: Sigmoid volvulus Has provider been notified: Yes Attending physician on discharge: Yong Martinez Discharging clinician: Natali Delgadillo DS: Diagnosis Discharge Diagnosis (1) Sigmoid volvulus: Status: Acute DS: Summary Hospital Course Hospital Course: From H&P on the day of admission 74 year old assigned male at with a history of CLL, 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 Patient states that over the last 10 days he has had increasing difficulty with bowel movements. Patient states that he was having some pass but 3 days ago that has stopped and he is no longer passing gas. Patient states that he is nauseous but has not vomited. Patient states he has had several loose/liquid bowel movements but nothing solid. He states he has had this intermittent constipation for several years. Abdominal pain and bloating brought him to the ER this episode Sigmoid volvulus. Seen in consultation by Gastroenterology, underwent decompression of sigmoid volvulus in the OR with placement of rectal tube. Colonic mucosa within normal limits without ischemia, polyps or masses. Abdominal X exam significantly improved following procedure. Follow-up abdominal abdominal x-ray did not show any free air. Rectal tube was removed and his diet was slowly advanced. He was seen by General surgery but ultimately declined any surgical intervention. Both GI and General surgery discussed risks for sigmoid volvulus recurrence. Patient continued to declined surgical intervention. His diet was advanced and he is currently tolerating a regular diet, his abdominal pain has resolved, and he is eager to return home. GI recommended MiraLax for bowel regimen to prevent constipation. Time Attestation Discharge Coordination Time (in mins): 30 Quality: Safe Use of Opioids Does Pt have an Active Cancer Diagnosis on the Problem List?: No Quality: Stroke Does the patient have a stroke diagnosis?: No Physical Exam Vital Signs: Vital Signs: Last Vital Signs Temp 97.2 F 12/23/24 07:40 Pulse 55 12/23/24 07:40 Resp 20 12/23/24 07:40 BP 137/69 12/23/24 07:40 Pulse Ox 98 12/23/24 07:40 O2 Del Method Room Air 12/23/24 07:40 BMI result Body Mass Index 23.2 Const: General: cooperative, comfortable, no acute distress, alert and awake Orientation/consciousness: patient oriented x3 GI: Inspection: No distended Palpation (GI): Soft to palpation and nontender Neuro: Other: right chronic facial droop General: patient oriented x3 DS: Data Data Completed and Pending Labs on day of discharge: Laboratory Results - last 24 hr 12/23/24 08:30 Sodium 132 L Potassium 3.6 Chloride 99 Carbon Dioxide 28 Anion Gap 9 L BUN 7 L Creatinine 0.68 Estim Creat Clear Calc 110.5 Estimated GFR > 60 Random Glucose 83 Calcium 8.4 Discharge Plan Discharge Anticipated Discharge Date/Time: 12/23/24 09:53 Patient Disposition: Home, Self-Care Discharge Diagnosis: sigmoid volvulus Referrals: Kulwant Sterling MD [Physician] - 1 Week Aminata Moreno MD [Primary Care Provider] - 1 Week Discharge Medications: New polyethylene glycol 3350 17 gram Powder In Packet 17 g PO DAILY Qty: 30 0RF Continued atorvastatin 40 mg tablet 40 mg PO DAILY carvedilol 6.25 mg tablet 6.25 mg PO BID cefadroxil 500 mg capsule 500 mg PO BID methocarbamol 750 mg tablet 750 mg PO Q6-8H PRN (Reason: muscle spasm) amlodipine 10 mg tablet 10 mg PO DAILY losartan 100 mg tablet 100 mg PO DAILY oxycodone 5 mg tablet 5 mg PO Q6-8H PRN (Reason: severe pain) Discharge Orders: Discharge Order (Routine); Ordered 12/23/24 Ordered By: Natali Delgadillo Activity on Discharge: As tolerated Stand Alone Forms: Patient Portal Discharge page Print Language: Norwegian Care Plan Goals: see below Health Concerns: Sigmoid volvulus status post endoscopic decompression Plan of Treatment: Any recurrence would require surgical intervention Recommend outpatient follow-up with PCP, General surgery as needed Take MiraLax daily as prescribed to prevent constipation Assessment: See discharge summary
--- NOTE | 2024-12-23 10:38 | MHC.CM.PN ---
PT MEDICALLY CLEARED FOR DC HOME SELF CARE, PT'S S.O. FOR TRANSPORT
[2024-12-23 12:00] VITALS: BP 108/71; PULSE 60; RESP 20; TEMP 36.7; O2SAT 98
== END 2024-12-23 13:01 | disposition home or self-care (01) | DRG 390 ==
LOC: HO.ED 17:17 → HO.SSS 17:24 → HO.EDOVER 18:09 → HO.IMC 19:14
PROVIDERS: Internal Medicine; Physician Assistant Medical; Absent Provider Hospitalist; Admitting Provider Hospitalist; Emergency Provider Emergency Medicine; PCP Family Medicine; Visit Provider Physician Assistant Medical
PROC: 0DJD8ZZ Inspection of Lower Intestinal Tract, Via Natural or Artificial Opening Endoscopic (ICD-10-PCS; CPT 45378; principal; 2024-12-20 16:30)
DX: K56.2 Volvulus (principal); K59.00 Constipation, unspecified; I10 Essential (primary) hypertension; E78.5 Hyperlipidemia, unspecified; Z66 Do not resuscitate; Z20.822 Contact with and (suspected) exposure to COVID-19; Z85.828 Personal history of other malignant neoplasm of skin; Z85.6 Personal history of leukemia; Z95.5 Presence of coronary angioplasty implant and graft; Z79.899 Other long term (current) drug therapy
CPT/HCPCS: 0241U; 36415; 74018; 74022; 74177; 80048; 80053; 80076; 83690; 83735; 85007; 85025; 85027; 93005; 99284; J1650; J2003; J2270; J2371; J2405; J2543; J2704; J3010; Q9967

== ENCOUNTER → 2024-12-20 10:42 | Outpatient (BNV) | payer MEDICARE, SELFPAY | PROVIDERS: PCP Family Medicine; Visit Provider Radiology Diagnostic Radiology | DX: K56.2 Volvulus (principal); K56.699 Other intestinal obstruction unspecified as to partial versus complete obstruction; M25.451 Effusion, right hip; R14.0 Abdominal distension (gaseous); K56.41 Fecal impaction | CPT/HCPCS: 74018; 74177 ==

== ENCOUNTER → 2024-12-20 17:17 | Outpatient (BNV) | payer MEDICARE, SELFPAY | PROVIDERS: Emergency Provider Emergency Medicine; PCP Family Medicine; Visit Provider Hospitalist | DX: K56.2 Volvulus (principal) | CPT/HCPCS: 99223; 99231; 99239 ==

== ENCOUNTER → 2024-12-20 17:19 | Outpatient (BNV) | payer MEDICARE, SELFPAY | PROVIDERS: Absent Provider Hospitalist; Admitting Provider Hospitalist; Emergency Provider Emergency Medicine; PCP Family Medicine; Visit Provider Internal Medicine Cardiovascular Disease | DX: I44.0 Atrioventricular block, first degree (principal); I45.10 Unspecified right bundle-branch block | CPT/HCPCS: 93010 ==

== ENCOUNTER 2024-12-20 17:28 | Outpatient (BNV) | payer MEDICARE, SELFPAY | END 2024-12-21 07:29 | PROVIDERS: Absent Provider Hospitalist; Admitting Provider Hospitalist; Emergency Provider Emergency Medicine; PCP Family Medicine; Visit Provider Internal Medicine Cardiovascular Disease | DX: I45.10 Unspecified right bundle-branch block (principal) | CPT/HCPCS: 93010 ==

== ENCOUNTER 2024-12-20 17:28 | Outpatient (BNV) | payer MEDICARE, SELFPAY | END 2024-12-21 07:00 | PROVIDERS: Absent Provider Hospitalist; Admitting Provider Hospitalist; Emergency Provider Emergency Medicine; PCP Family Medicine; Visit Provider Radiology Diagnostic Radiology | DX: R19.5 Other fecal abnormalities (principal) | CPT/HCPCS: 74022 ==

== ENCOUNTER → 2024-12-20 17:28 | Outpatient (BNV) | payer MEDICARE, SELFPAY | PROVIDERS: Absent Provider Hospitalist; Admitting Provider Hospitalist; Emergency Provider Emergency Medicine; PCP Family Medicine; Visit Provider Surgery | DX: K56.2 Volvulus (principal) | CPT/HCPCS: 99222; 99232 ==

== ENCOUNTER 2025-01-09 09:23 | Inpatient (IN) | payer MEDICARE, SELFPAY ==
[2025-01-09] VITALS (11 sets, daily range): BP systolic 143–166; BP diastolic 78–93; PULSE 58–71; RESP 14–20; TEMP 36.1–37.1; O2SAT 96–100; BMI 29.0
--- NOTE | ~2025-01-09 | XR_ITS ---
CLINICAL HISTORY: hx of bowel blockage 1 view abdomen Comparison: CR/SR - XR KUB - 12/20/24 11:15 EDT Findings: Marked colonic distention.Heavy stool burden in the right and left hemicolon. No massive pneumoperitoneum. Renal and psoas margins are normal. No organomegaly. No acute fracture. Bilateral total hip arthroplasties and ORIF hardware proximal right femur. Impression: 1. Heavy stool burden in both the right and left hemicolon with marked colonic distention This document has been electronically signed by: Yamil Mccormick MD on 01/09/2025 11:03:35
--- NOTE | ~2025-01-09 | CT_ITS ---
CLINICAL HISTORY: distention, pain, hx sigmoid volvulus CT abdomen and pelvis with contrast Comparison: CT/AL/SR - CT ABDOMEN PELVIS W IV CON - 12/20/24 15:[address]/AL - CT ABDOMEN PELVIS W IV CON - 12/20/24 15:15 EDT Findings: Examination is limited by bilateral hip arthroplasty artifact. No consolidation or effusion. The gallbladder and solid organs are within normal limits. No renal stones. Sigmoid volvulus is present as before associated with moderate to severe dilatation of the more proximal large bowel as well as large amount of stool content. Appendix is not seen. The bones are intact. Bilateral hip arthroplasty. 60 mm peripherally enhancing fluid collection at the lateral aspect of the right iliac wing. IMPRESSION: 1. Sigmoid volvulus with associated large bowel obstruction. 2. Fluid collection adjacent to the right pelvis, possibly abscess. This document has been electronically signed by: Jose Angel Rush MD on 01/09/2025 16:51:45
[2025-01-09 10:12] LABS: Alanine Aminotransferase 20 U/L (0-40); Albumin Level 4.5 g/dL (3.5-5.0); Anion Gap 15 (12-20); Aspartate Amino Transferase 37 U/L (5-37); Bilirubin Total 0.6 mg/dL (0.0-1.0); Blood Urea Nitrogen 15 mg/dL (9-16); Calcium 9.1 mg/dL (8.4-10.2); Carbon Dioxide 24 mmol/L (22-29); Chloride 99 mmol/L (96-108); Creatinine Clr Calc Pharmacy 83.3; Estimated Glomerular Filt Rate > 60; Glucose Random 149 mg/dL (60-115); Lipase 16 U/L (8-78); Magnesium 1.8 mg/dL (1.6-2.6); Potassium 3.1 mmol/L (3.3-5.1); Sodium 135 mmol/L (135-145); Total Protein 7.3 g/dL (6.5-8.0)
[2025-01-09 10:19] LABS: Alkaline Phosphatase 131 U/L (39-117); Basophils Percent Auto 0.2 % (0-2); Imm Gran Abs Auto 0.04 X10*3/uL (0.00-0.03); Imm Gran Pct Auto 0.3 % (0.0-0.4); Lymphocytes Percent Auto 76.6 % (20-40); MANUAL DIFF FLAG SCAN; Mean Corpuscular HGB Conc 34.4 g/dl (31.0-36.0); Mean Corpuscular Volume 96.1 fL (80.0-98.0); Mean Platelet Volume 8.4 fL (9.4-12.4); Monocytes Absolute Auto 0.2 X10*3/uL (0.1-1.2); Monocytes Percent Auto 1.8 % (2-11); Neutrophils Absolute Auto 2.5 x10*3/uL (2.0-8.3); Neutrophils Percent Auto 21.1 % (45-73); Platelet Count 107 X10*3/uL (160-400); Red Blood Count 3.33 X10*6/uL (4.60-5.80); Red Cell Distribution Width 16.8 % (11.0-16.0); SCAN SMEAR FLAG 1; White Blood Count 11.9 X10*3/uL (4.8-10.8)
[2025-01-09 10:24] LABS: Lymphocytes Absolute Auto 9.1 X10*3/uL (1.2-4.9)
[2025-01-09 10:57] LABS: SLIDE REVIEW VERIFIED
--- NOTE | 2025-01-09 11:42 | ED.ABDPAIN ---
HPI - Abdominal Pain General Chief Complaint: Abdominal Pain Stated Complaint: relapse Time Seen by Provider: 01/09/25 11:39 Source: patient, family, RN notes reviewed and old records reviewed Mode of arrival: ambulatory Limitations: no limitations History of Present Illness ED Provider: Rossana Pablo PA-C HPI narrative: 74 yo male with history of CLL, SCC face s/p exciision, basal cell carcinoma, right hip fx s/p arthroplasty complicated by infection in June requiring hardware removal, abx spacer and replacement of hardware in September, recent admission to [facility] 12/20-12/23 for sigmoid volvulus treated with flexible sigmoidoscopy who presents to the ER for evaluation of severe abdominal pains along with constipation x3 days. He states the pain is severe, comes in waves and lasts about 2 minutes. It recurs frequently and has been getting worse over the last 24 hours. No N/V. He last had a BM and flatus 3 days ago. He had a normal BM 5 days ago and then started to develop liquid stool. He reports pain is worse than last month's presentation. MD elicited complaint: abdominal pain and other (constipation) Pertinent past history: other (sigmoid volvulus) Onset (ago): day(s) Pain Consistency: intermittent Location: diffuse Severity: severe Pain scale (0-10): 10 Quality: cramping and stabbing Radiation: none Migration to: no migration Exacerbating factors: nothing Relieving factors: nothing Context: history of similar episodes Associated symptoms: constipation Treatments prior to arrival: other (oxycodone x2 last night with no relief) Related Data Home Medications ?Medication ?Instructions ?Recorded ?Confirmed amlodipine 10 mg tablet 10 mg PO DAILY 12/20/24 12/20/24 atorvastatin 40 mg tablet 40 mg PO DAILY 12/20/24 12/20/24 carvedilol 6.25 mg tablet 6.25 mg PO BID 12/20/24 12/20/24 cefadroxil 500 mg capsule 500 mg PO BID 12/20/24 12/20/24 losartan 100 mg tablet 100 mg PO DAILY 12/20/24 12/20/24 methocarbamol 750 mg tablet 750 mg PO Q6-8H PRN muscle spasm 12/20/24 12/20/24 oxycodone 5 mg tablet 5 mg PO Q6-8H PRN severe pain 12/20/24 12/20/24 Previous Rx's ?Medication ?Instructions ?Recorded polyethylene glycol 3350 17 gram 17 g PO DAILY #30 ea 12/23/24 oral powder packet Allergies Allergy/AdvReac Type Severity Reaction Status Date / Time No Known Allergies Allergy Verified 01/09/25 09:37 Review of Systems Review of Systems Yes all other systems are reviewed and are negative [facility] Past Medical History Medical History (Updated 01/09/25 @ 17:10 by TRISTON Barth) Coronary artery disease Chronic anemia Basal cell carcinoma Squamous cell carcinoma of face CLL (chronic lymphocytic leukemia) HLD (hyperlipidemia) HTN (hypertension) Surgical History H/O neck surgery H/O heart artery stent History of total right hip replacement History of total left hip replacement History of facial surgery Social History Social History Household Members: Significant Other [facility] Are you a primary residential child care counselor to a significant other at home: No Do you presently have visiting nurse or other home services: Yes (PT) Patient Tobacco Use Status: Never used Tobacco Smoked in Last 30 Days: No Use of substances other than those prescribed or required for medical reasons: Yes Substance Use Type: Other Advance Directives: No Advance Directives Information Provided: Yes service: No Physical Exam ED Vital Signs: Vital Signs - 24 hr 01/09/25 09:34 01/09/25 12:29 01/09/25 14:45 Temperature 98.7 F 97.9 F Pulse Rate 71 67 65 Respiratory Rate 20 20 18 Blood Pressure 147/93 H 157/89 H 147/79 H Pulse Oximetry 100 96 99 Oxygen Delivery Method Room Air Room Air Room Air 01/09/25 16:23 Temperature 98.1 F Pulse Rate 65 Respiratory Rate 18 Blood Pressure 166/92 H Pulse Oximetry 99 Oxygen Delivery Method Room Air BMI result Body Mass Index 29.0 Appearance: Alert. Oriented X3. No acute distress. Head/face: normocephalic, atraumatic. right sided facial droop with skin colored dressing over right cheek Eyes: Pupils equal, round and reactive to light. ENT: Pharynx normal. No tonsillar swelling or exudate. Neck: Normal inspection. Neck supple. CVS: Normal heart rate and rhythm. Pulses normal. Respiratory: No respiratory distress. Breath sounds normal. Abdomen: Somewhat firm and distended with moderate tenderness throughout, worse in the lower quadrants, decreased but present+BS x4. tympanic to percussion Skin: Skin warm and dry. Normal skin color. Normal skin turgor. No rashes. Extremities: No lower extremity edema. No joint swelling. Neuro/psych: Oriented X 3. grossly normal, nonfocal. Normal speech and cognition. Course Reevaluation(s) Reevaluation #1: tolerated all of the oral contrast. CT scan is pending c/o recurrent pain, additional IV Morphine given Time: 15:00 Medical Decision Making Medical Decision Making [facility] Narrative: 74 yo male with history of CLL, SCC face s/p exciision, basal cell carcinoma, right hip fx s/p arthroplasty complicated by infection in June requiring hardware removal, abx spacer and replacement of hardware in September, recent admission to [facility] 12/20-12/23 for sigmoid volvulus treated with flexible sigmoidoscopy who presents to the ER for evaluation of severe abdominal pains along with constipation x3 days. CT scan with oral contrast ordered. patient initially treated with IV morphine with brief improvement, 2nd dose required. called real radiology to expedite read with concern for recurrent volvulus case d/w Dr. Banerjee, possibly needs another detorse with GI? TT Dr. Tineo to review CT 16:40 - Dr. Banerjee discussed surgical options with the patient and will take him to OR today to sigmoidectomy and colostomy. CT reviewed - he has a rim enhancing fluid collection lateral to the right hip, present on former CT as well. will consult ortho for further evaluation. Differential Diagnosis Differential Diagnoses: The differential diagnosis associated with the presentation includes recurrent volvulus, oglieves syndrome, bowel obstruction, intestinal ischemia, constipation, obstipation, Admission/Observation Consideration of admission/observation: Escalation of care including admission/observation considered Consult Healthcare Provider Management of the patient was discussed with: Getterer Dr. Banerjee Surgery Lab Data [facility] Lab Attestation statement: I reviewed the patient's lab results. pancytopenia, hypokalemia 01/09/25 09:48 01/09/25 09:48 Labs: Lab Results 01/09/25 Range/Units 09:48 WBC 11.9 H (4.8-10.8) X10*3/uL RBC 3.33 L (4.60-5.80) X10*6/uL Hgb 11.0 L (14.0-18.0) g/dl Hct 32.0 L (42.0-52.0) % MCV 96.1 (80.0-98.0) fL MCH 33.0 (27.0-33.0) pg MCHC 34.4 (31.0-36.0) g/dl RDW 16.8 H (11.0-16.0) % Plt Count 107 L (160-400) X10*3/uL MPV 8.4 L (9.4-12.4) fL Immature Gran % (Auto) 0.3 (0.0-0.4) % Neut % (Auto) 21.1 L (45-73) % Lymph % (Auto) 76.6 H (20-40) % [place] % (Auto) 1.8 L (2-11) % Eos % (Auto) 0.0 (0-4) % Baso % (Auto) 0.2 (0-2) % Lymph # (Auto) 9.1 H (1.2-4.9) X10*3/uL [place] # (Auto) 0.2 (0.1-1.2) X10*3/uL Eos # (Auto) 0.0 (0.0-0.4) X10*3/uL Baso # (Auto) 0.0 (0.0-0.2) X10*3/uL Abs Immat Gran (auto) 0.04 H (0.00-0.03) X10*3/uL Absolute Neuts (auto) 2.5 (2.0-8.3) x10*3/uL Absolute Nucleated RBC 0.000 (0.0-0.012) X10*3/uL Nucleated RBC % (auto) 0.0 (0.0-0.2) /100WBC Smear Tech's Comments VERIFIED Sodium 135 (135-145) mmol/L Potassium 3.1 L (3.3-5.1) mmol/L Chloride 99 (96-108) mmol/L Carbon Dioxide 24 (22-29) mmol/L Anion Gap 15 (12-20) BUN 15 (9-16) mg/dL Creatinine 0.78 (0.5-1.4) mg/dL Estim Creat Clear Calc 83.3 Estimated GFR > 60 Random Glucose 149 H (60-115) mg/dL Calcium 9.1 D (8.4-10.2) mg/dL Magnesium 1.8 (1.6-2.6) mg/dL Total Bilirubin 0.6 (0.0-1.0) mg/dL AST 37 (5-37) U/L ALT 20 (0-40) U/L Alkaline Phosphatase 131 H (39-117) U/L Total Protein 7.3 (6.5-8.0) g/dL Albumin 4.5 (3.5-5.0) g/dL Lipase 16 (8-78) U/L Independent Interpretation I performed an independent interpretation of an: CT Scan Radiology Impression Discussion of test interpretation with radiology: I have reviewed the radiologist's reading. Radiologist Impression: CLINICAL HISTORY: distention, pain, hx sigmoid volvulus CT abdomen and pelvis with contrast Comparison: CT/MI/SR - CT ABDOMEN PELVIS W IV CON - 12/20/24 15:[address]/MI - CT ABDOMEN PELVIS W IV CON - 12/20/24 15:15 EDT Findings: Examination is limited by bilateral hip arthroplasty artifact. No consolidation or effusion. The gallbladder and solid organs are within normal limits. No renal stones. Sigmoid volvulus is present as before associated with moderate to severe dilatation of the more proximal large bowel as well as large amount of stool content. Appendix is not seen. The bones are intact. Bilateral hip arthroplasty. 60 mm peripherally enhancing fluid collection at the lateral aspect of the right iliac wing. IMPRESSION: 1. Sigmoid volvulus with associated large bowel obstruction. 2. Fluid collection adjacent to the right pelvis, possibly abscess. Independent Historian Clinical information obtained from an independent historian. History obtained from or confirmed by: Friend External Record Review External record reviewed: Inpatient record, Outpatient record and Prior outpatient radiology Prescription Management I considered prescription management with: Pain Medication and Antibiotic Chronic Conditions Patient?s care impacted by: Other (sigmoid) Medications Administered Discontinued Medications Generic Name Dose Route Start Last Admin Trade Name Freq PRN Reason Stop Dose Admin Diatrizoate Meglum/Diatrizoate Sod 30 ml 01/09/25 15:49 01/09/25 15:49 Diatrizoate Meglumine, Sodium 30 Ml Solution PO 01/09/25 15:50 30 ml ONCE ONE Administration Iohexol 100 ml 01/09/25 15:48 01/09/25 15:48 Iohexol 350 Mg/Ml 100 Ml Infus..Btl IV 01/09/25 15:49 85 ml ONCE ONE Administration Morphine Sulfate 4 mg 01/09/25 11:48 01/09/25 12:30 Morphine Sulfate 4 Mg/Ml Cartridge IVPUSH 01/09/25 11:49 4 mg ONCE ONE Administration Protocol Morphine Sulfate 4 mg 01/09/25 14:44 01/09/25 14:50 Morphine Sulfate 4 Mg/Ml Cartridge IVPUSH 01/09/25 14:45 4 mg ONCE ONE Administration Protocol Ondansetron HCl 4 mg 01/09/25 11:48 01/09/25 12:30 Ondansetron Hcl 4 Mg/2 Ml Vial IVPUSH 01/09/25 11:49 4 mg ONCE ONE Administration Critical Care Time Critical Care Time Critical Care Time: Yes Total Critical Care Time: 39 Attestation: I have personally provided critical care time exclusive of time spent on separately billable procedures. Time includes review of lab data, radiology results, bedside re-evaluation after multiple doses of IV antibiotics, discussion with consultants, and monitoring for potential decompensation. Intervention performed as documented. Discharge Plan Discharge Clinical Impression: Sigmoid volvulus, Pelvic fluid collection Patient Disposition: Admitted As Inpatient Print Language: Colombian
--- OUTSIDE RECORDS SUMMARY | 2025-01-09 11:59 | XMS_ITS | Encounter Summary ---
Author Organization [facility] Address [address] [place] [id number] Care Team Providers Care Vp Digital Marketing Name Role Phone Indu Acosta MD Primary Care Provider Giovanna Thapa MD Unavailable Suzanna Mcgill DO Primary Care Provider [phone] Reason for Visit * Reason Comments Medication Refill Encounter Details Date Type Department Care Team (Late st Contact Info) Description 03/01/2022 Refill [facility] [address] [place] [id number] Olivia Zavaleta, TRISTON [address] [place] [id number] Medication Refill Social History Tobacco Use Types Packs/Day Years Used Date Smoking Tobacco: Never Smokeless Tobacco: Never Alcohol Use Standard Drinks/Week Comments Yes 0 (1 standard drink = 0.6 oz pur e alcohol) Occasional Sex and Gender Information Value Date Recorded Sex Assigned at Male 09/27/2022 7:35 AM EST Legal Sex Male 5:01 PM EDT Gender Identity Male 09/27/2022 7:35 AM EST Sexual Orientation Heterosexual (straight) 09/27 7:35 AM EST documented as of this encounter Plan of Treatment Upcoming Encounters Date Type Department Care Team (Late st Contact Info) Description 02/24/2025 10:00 AM EDT Office Visit [facility] [place] [address] [place] [phone] Giovanna Thapa MD [address] [place] [address] [place], [place] [address] [place] [address] documented as of this encounter Visit Diagnoses Diagnosis Hypertension, unspecified type documented in this encounter Care Teams Vp Digital Marketing Relationship Specialty Start Date End Date Indu Acosta MD [address] [place] [address] PCP - General 08/29/21 03/26/23 Suzanna Mcgill DO [address] [place] [address] PCP - General Family Medicine 03/27/23 Giovanna Thapa MD [address] [place] [id number] Freight Firer Cardiovascular Disease 08/29/21 documented as of this encounter
--- OUTSIDE RECORDS SUMMARY | 2025-01-09 11:59 | XMS_ITS | Encounter Summary ---
Author Organization [facility] Address [address] [place] [address] Care Team Providers Care Arch Cushion Skiving Machine Operator Name Role Phone Suzanna Mcgill Primary Care Provider [phone] Encounter Details Date Type Department Care Team (Late st Contact Info) Description 08/21/2022 myChart Message [facility] Operating Room [address] [place] [id number] Mychart, Generic Provider [address] [place], [place] [id number] Surgical procedure with Dr. Ashu Mason on [...] on filedocumented in this encounter Care Teams Arch Cushion Skiving Machine Operator Relationship Specialty Start Date End Date Suzanna Mcgill [address] [place] [address] PCP - General 08/14/22 documented as of this encounter
--- OUTSIDE RECORDS SUMMARY | 2025-01-09 11:59 | XMS_ITS | Clinical Summary ---
Author Organization [facility] Address [address] [place] [address] Care Team Providers Care Carbon Setter Name Role Phone Giovanna Thapa MD Unavailable Suzanna Mcgill DO Primary Care Provider [phone] Allergies Active Allergy Reactions Criticality Noted Date Comments Pollen Extract Fever High 05/21/2019 Medications aspirin enteric coated (ECOTRIN LOW STRENGTH) 81 [...] Active Melatonin 1 MG Chew Tab Chew. Active Probiotic Product (Probiotic-10) Chew Tab Chew 4 tablets. Active atorvastatin (LIPITOR) 40 MG tabletIndications:Pure hypercholesterolemia TAKE 1 TABLET BY MOUTH EVERY DAY 90 tablet 3 02/11/20 24 Active carvedilol (COREG) 6.25 MG tabletIndications:Hyper tension, unspecified type TAKE 1 TABLET BY MOUTH TWICE A DAY WITH MEALS 180 tablet 3 04/08/20 24 Active losartan (COZAAR) 100 MG tabletIndications:Prima ry hypertension TAKE 1 TABLET BY MOUTH EVERY DAY 90 tablet 3 05/17/20 24 Active traMADol (ULTRAM) 50 MG tablet Take 1 tablet (50 mg total) by mouth 4 times daily (every 6 hours) as needed. 05/24/20 24 Active senna-docusate (SENNA-S) 8.6-50 MG Take 1 tablet by mouth daily. Active methocarbamol (ROBAXIN) 750 MG tablet Take 1 tablet (750 mg total) by mouth as needed. 05/14/20 24 Active Cobalamin Combinations (Vitamin T51-Njwan Acid) 500-400 MCG Tab Take by mouth daily. 12/29/19 24 Active acetaminophen (TYLENOL) 500 MG tablet Take [...] work up Coronary artery disease invo lving [place] coronary artery of [place] heart without angina pectoris 09/13/2015 Overview (09/05/2021): Stenting x 2 in [address] Thapa in [place], [place] Essential hypertension 09/13/2015 Hyperlipidemia 09/13/2015 Primary hypertension 09/13/2015 Coronary artery disease invo lving [place] coronary artery of [place] heart without angina pectoris 09/13/2015 03/27/2023 Overview (03/27/2023): Stenting x 2 in [address] Thapa in [place], [place] Stenting x 2 in [address] Thapa in [place] Other hyperlipidemia 09/13/2015 03/27/2023 Immunizations Immunization Administration Dates Next Due Covid-19 mRNA Vaccine [...] Description 02/24/2025 10:00 AM EDT Office Visit [facility] [place] [address] [phone] Giovanna Thapa MD [address] [place] [phone] Health Maintenance Due Date Last Done Comments [...] series) 09/03/2023 08/06/2023, 01/09/2022, 07/11/2021 Influenza Vaccine 04/08/2025 07/01/2024, , 08/06/2023, Additional history exists Hepatitis B Vaccines Aged Out No long er eligible based on patient's age to complete this topic Insurance [facility] [place] [id number] [facility] MEDICARE Care Teams Carbon Setter Relationship Specialty Start Date End Date Suzanna Mcgill DO [address] [place] [address] [place] [address] PCP - General Family Medicine 03/27/23 Giovanna Thapa MD [address] [place] [id number] Primary Consumer Services Advisor Cardiovascular Disease 08/29/21
--- OUTSIDE RECORDS SUMMARY | 2025-01-09 11:59 | XMS_ITS | Clinical Summary ---
Author Organization [employer] [facility] Address [address] [place] [address] Phone Care Team Providers Care Umbrella Mender Name Role Phone Aminata Moreno MD Primary Care Provider Allergies Active Allergy Reactions Criticality Noted Date Comments Pollen Extracts Stuffy Nose Low 05/21/2019 Medications fexofenadine HCl (LILIANA ALLERGY ORAL) 1 (one) time each day. Active multivit-min/iron /folic acid/K (ADULTS MULTIVITAMIN ORAL) 1 (one) time [...] with meals. 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 Head and neck cancer ([facility] V24, [facility] V28) 09/03/2022 Assessment & Plan (08/25/2024 12:48 PM EST): CT head and neck performed 08/18/2024: All negative for mass, metastatic disease, lymphadenopathy. Followed closely by radiation oncology. See note below. Infrarenal abdominal aortic aneurysm (AAA) without rupture ([facility] V24) 08/27/2022 Overview (08/17/2024): PET/CT TUMOR IMAGING SKULL BASE TO MID-THIGH ? 08/26/2022 Moderate calcified and sclerosis of the aortoiliac tree with fusiform infrarenal aneurysm measuring 3.1 cm Hyponatremia 11/12/2021 CLL (chronic lymphocytic gricel kemia) ([facility] V24, [facility] V28) 01/13/2019 Overview (05/21/2024): Dr Cotton Assessment [...] outpatient management. 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 [address] [place] [phone] Aminata Moreno MD Constipation 12/13/2024 3:00 PM EDT Office Visit Adult [facility] [address] [place] [phone] Aminata Moreno MD Medicare annual wellness visit, subsequent (Primary Dx); History of revision of total replacement of right hip joint; CLL (chronic lymphocytic leukemia) (CMS/HCC V24, CMS/HCC V28); Other iron deficiency anemia; Recurrent squamous cell carcinoma of skin 12/10/2024 2:00 PM EDT Office Visit Adult Medicine [facility] [address] [place] [phone] Laura Rodriguez PA Bilateral impacted cerumen (Primary Dx) 12/07/2024 10:23 AM EDT - 12/07/2024 11:59 PM EDT Hospital Encounter [facility] Radiation Oncology [address] [place] [phone] Mimi Dawson NP Recurrent squamous cell carcinoma of skin (Primary Dx) Discharge Disposition: Home or Self Care 12/07/[address] [phone] Aminata Moreno MD Cerumen Impaction 12/02/2024 8:03 AM EDT - 12/02/2024 11:59 PM EDT Hospital Encounter [facility] Infusion Center [address] [place] [phone] Lamar Cotton MD CLL (chronic lymphocytic leukemia) (CMS/HCC V24, CMS/HCC V28) (Primary Dx) Discharge Disposition: Home or Self Care 12/01/2024 9:30 AM EDT Telemedicine Infectious Disease - [place] [address] [place] [address] Neelima Peoples MD Prosthetic joint infection, subsequent encounter (Primary Dx) 11/30/2024 Telephone [facility] Hematology Oncology [address] [place] [phone] Lamar Cotton MD 11/18/2024 Telephone [facility] Radiation Oncology [address] [place] [phone] Jenniffer Salazar MA 11/17/2024 9:58 AM EDT - 11/17/2024 11:59 PM EDT Hospital Encounter [facility] CT Scan [address] [place] [phone] Recurrent squamous cell carcinoma of skin Discharge Disposition: Home or Self Care 11/17/2024 9:57 AM EDT - 11/17/2024 11:59 PM EDT Hospital Encounter [facility] CT Scan [address] [place] [phone] Recurrent squamous cell carcinoma of skin Discharge Disposition: Home or Self Care 11/10/2024 11:45 AM EST Office Visit [facility] Hematology Oncology [address] [place] [phone] Lamar Cotton MD CLL (chronic lymphocytic leukemia) ([facility] [place] V24, [facility] [place] V28) (Primary Dx); S/P bilateral hip replacements; Anemia, unspecified type 11/03/2024 9:49 AM EST - 11/03/2024 11:59 PM EST Hospital Encounter [address] [phone] Lamar Cotton MD CLL (chronic lymphocytic leukemia) ([facility] [place] V24, [facility] [place] V28) (Primary Dx) Discharge Disposition: Home or Self Care 10/28/2024 Telephone Infectious Disease - [place] [address] [place] [phone] [place], [place] 10/27/2024 11:45 AM EST Office Visit [facility] Hematology Oncology [address] [place] [phone] Lamar Cotton MD Other non-autoimmune hemolytic anemias ([facility] [place] V24, [facility] [place] V28) (Primary Dx); CLL (chronic lymphocytic leukemia) ([facility] [place] V24, [facility] [place] V28) 10/27/2024 9:48 AM EST - 10/27/2024 11:59 PM EST Hospital Encounter [facility] [address] [place] [phone] Lamar Cotton MD CLL (chronic lymphocytic leukemia) ([facility] [place] V24, [facility] [place] V28) (Primary Dx) Discharge Disposition: Home or Self Care 10/20/2024 10:15 AM EST Office Visit [facility] Hematology Oncology [address] [place] [phone] Lamar Cotton MD Anemia, unspecified type (Primary Dx); CLL (chronic lymphocytic leukemia) ([facility] V24, [facility] V28) 10/20/2024 9:21 AM EST - 10/20/2024 11:59 PM EST Hospital Encounter [facility] Infusion Center [address] [place] [phone] Lamar Cotton MD Iron deficiency anemia due to chronic blood loss (Primary Dx); CLL (chronic lymphocytic leukemia) ([facility] V24, [facility] V28); Recurrent squamous cell carcinoma of skin Discharge Disposition: Home or Self Care 10/20/2024 Telephone [facility] Hematology Oncology [address] [place] [phone] Lamar Cotton MD 10/19/2024 10:00 AM EST Telemedicine Infectious Disease - [place] [address] [place] [phone] Neelima Peoples MD Prosthetic joint infection, subsequent encounter (Primary Dx) 10/19/2024 Telephone [facility] Hematology Oncology [address] [place] [phone] Lamar Cotton MD 10/19/2024 Telephone [facility] Infusion Center [address] [place] [phone] Lamar Cotton MD from Last 3 Months Immunizations Name Administration [...] Site/Laterality Comments OTHER SURGICAL HISTORY Bilateral PROCEDURE: TX ARTHRP ACETBLR/PROX FEM PROSTC AGRFT/ALGRFT; COMMENT: bilateral CORONARY STENT PLACEMENT 2004 PROCEDURE: STENT, CORONARY, ELIZABET COLONOSCOPY 2008 [facility] PROCEDURE: HISTORICAL COLONOSCOPY; COMMENT: Incomplete OTHER SURGICAL HISTORY 03/06/2017 PROCEDURE: COLON CA SCRN NOT HI RSK IND; COMMENT: hemorrhoids; completed to hepatic flexure; repeat in 10 yrs. OTHER SURGICAL HISTORY 03/18/2017 PROCEDURE: RADIOLOGIC EXAM COLON SINGLE CONTRAST STUDY; COMMENT: diverticulosis, but study limited because of redundnat colon, and limited filling of ascending colon OTHER SURGICAL HISTORY 09/03/2022 Right PROCEDURE: HISTORY OTHER; COMMENT: [facility]- removal of growth - SCC on Rt [...] HIP PROSTHESIS; Surgeon: Babak Carrasquillo MD; Location: [facility] [place] Service: Orthopedics; Laterality: Right; Medical History Medical [...] hx of CLL (chronic lymphocytic gricel kemia) ([facility] V24, [facility] V28) 08/12/2024 IMPROVING Coronary artery disease invo lving wainwright coronary artery of wainwright heart without angina pectoris 12/05/2017 DX:Coronary artery disea se involving wainwright coronary artery of wainwright heart without angina pectoris Essential hypertension 12/05/2017 DX:Essent ial hypertension Pure hypercholesterolemia 12/05/2017 DX:Pur e hypercholesterolemia Osteoarthritis DX:Osteoarthriti s Chronic constipation DX:Chronic constipation GI (gastrointestinal bleed) D/T HEMORROIDS REQUIRED TRANSFUSION 07/2023 Hemorrhoid DX:Hemorrhoid Anemia DX:Anemia;COMMEN T:HX History of transfusion COMMENT:D /T HEMORROIDS 07/2023 Cancer ([facility] V24, [facility] V28) DX:Cancer (HCC);COMMENT:CLL- NO TX Skin cancer 2022 SCC FACE AND NEC K- GIOVANI, CHEMO, RAD TX Melanoma ([facility] V24, [facility] V28) 05/2022 DX:Melanoma (HCC) Family History Medical [...] Description 01/10/2025 9:00 AM EDT Office Visit [facility] Hematology Oncology [address] [place] [phone] Lamar Cotton MD [address] [place] [address] 03/16/2025 11:00 AM EDT Telemedicine Infectious Disease - [place] [address] [facility] [address] [place] [phone] Neelima Peoples MD [address] [facility] [address] [place] [address] Health Maintenance Due Date Last Done Comments Zoster Vaccines (1 of 2) 02/10/2015 12/16/2014 Social Influencers of Health Screening 08/15/2022 COVID-19 Vaccine ( season) 2024 08/06/2023, 08/06/2023, 06/27/2022, Additional history exists Depression Screening 12/13/2025 12/13/2024 Falls Risk Assessment 12/13/2025 12/13/2024, 025 Medicare Annual Wellness Visit 12/13/2025 12/13/2024 Hypertension/CHF/CAD Annual BMP Blood Test 01/04/2026 01/04/2025, 12/28/2024, 12/14/2024, Additional history exists Cholesterol Screening (Lipid Panel) 10/28/2027 10/28/2022 DTaP,Tdap,and Td Vaccines (4 - Td or Tdap) 07/06/2029 07/06/2019, 11/28/2008, 01/04/1999 Colorectal Cancer Screening: Colonoscopy 12/20/2034 12/20/2024, 03/06/2017 Hepatitis A Vaccines Aged Out 03/15/2014, 01/14/2014, [...] this topic Medical Devices Implanted Type Area Chief Mechanical Officer Device Identifier Shelf Expiration Date Model / Serial / Lot Sponge Surgifoam Gel 12 X 7mm - [id number] Implanted:Qty : 1 on 09/14/2024 by Babak Carrasquillo MD at [facility] Hemostasis Right: Hip [employer] [id number] 08/13/20261971 / / [id number] Screw Bone 6.5x35mm Trilogy - [id number] Implanted:Qty : 1 on 09/14/2024 by Babak Carrasquillo MD at [facility] Internal and External Fixation Right: Hip [employer]ESS [employer] 03/30/2034 [id number] / / [id number] Screw Bone 6.5x40mm Trilogy - [id number] Implanted:Qty : 1 on 09/14/2024 by Babak Carrasquillo MD at [facility] Internal and External Fixation Right: Hip [employer] 10/31/2033 [id number] / / [id number] Screw Bone 6.5x25mm Trilogy - [id number] Implanted:Qty : 1 on 09/14/2024 by Babak Carrasquillo MD at [facility] Internal and External Fixation Right: Hip [employer]ESS [employer]ET 03/23/2034 [id number] / / [id number] Screw Bone 6.5x20mm Trilogy - Sna - [id number] Implanted:Qty : 2 on 09/14/2024 by Babak Carrasquillo MD at [facility] Internal and External Fixation Right: Hip [employer] [id number] 02/25/2034 [id number] / NA / [id number] Screw Bone 6.5x20mm Trilogy - [id number] Implanted:Qty : 1 on 09/14/2024 by Babak Carrasquillo MD at [facility] Internal and External Fixation Right: Hip [employer]ESS [employer]ET 03/02/2034 [id number] / / [id number] Screw Bone 6.5x20mm Trilogy - [id number] Implanted:Qty : 1 on 09/14/2024 by Babak Carrasquillo MD at [facility] Internal and External Fixation Right: Hip [employer] [id number] 12/29/2033 [id number] / / [id number] Screw Bone 6.5x40mm Trilogy - Sna - [id number] Implanted:Qty : 1 on 09/14/2024 by Babak Carrasquillo MD at [facility] Internal and External Fixation Right: Hip [employer] [id number] / NA / [id number] Hip Hd Constrn Frdm -6mm - [id number] Implanted:Qty : 1 on 09/14/2024 by Babak Carrasquillo MD at [facility] Joints Hip Right: Hip [employer] [id number] 06/16/2033-949028 / / [id number] Plate Relocation Services Specialist Troch Lg 210mm Vitallium W 2 2mm Cabl Stry-How 3405-8-685-36 3390 Implanted:Qty : 1 on 06/08/2024 by Babak Carrasquillo MD Right: Hip [employer] [id number] 02/19/2028 6704-3-093 / / [id number] Cable Slv Set D-M Bead 2.0mm Vit Med Stry-Howm 3540-3-986-11 4159 Implanted:Qty : 1 on 06/08/2024 by Babak Carrasquillo MD Right: Hip [employer] [id number] 11/17/2028 6704-0-510 / / [id number] Cable Slv Set D-M Bead 2.0mm Vit Med Stry-Howm 4052-8-421-11 4159 Implanted:Qty : 1 on 06/08/2024 by Babak Carrasquillo MD Right: Hip [employer] [id number] 11/17/2028 6704-0-510 / / [id number] Cable Slv Set D-M Bead 2.0mm Vit Med Stry-Howm 7118-6-033- 4159 Implanted:Qty : 1 on 06/08/2024 by Babak Carrasquillo MD Right: Hip [employer] [id number] 11/17/2028 6704-0-510 / / [id number] Cement Bone Surg Simplex Radiopq Stry-Howm 5396-0-147- 4092 Implanted:Qty : 1 on 06/08/2024 by Babak Carrasquillo MD Right: Hip [employer] [id number] 05/08/2026 61 / / [id number] Cement Bone Surg Simplex Radiopq Stry-Howm 6909-5-493- 4092 Implanted:Qty : 1 on 06/08/2024 by Babak Carrasquillo MD Right: Hip [employer] [id number] 05/08/2026 6191- / / [id number] Impl Set Bead 2.0mm Vit Dall Ajith Stry-How 4745-8-193- 4128 Implanted:Qty : 1 on 06/08/2024 by Babak Carrasquillo MD Right: Hip [employer] [id number] 01/19/2029 6704-0-520 / / [id number] Impl Set Bead 2.0mm Vit Dall Ajith Stry-How 1414-9-935- 4128 Implanted:Qty : 1 on 06/08/2024 by Babak Carrasquillo MD Right: Hip [employer] [id number] 01/19/20294-0-520 / / [id number] Impl Set Bead 2.0mm Vit Dall Ajith Stry-How 3849-1-283- 4128 Implanted:Qty : 1 on 06/08/2024 by Babak Carrasquillo MD Right: Hip [employer] [id number] 01/09/20294-0-520 / / [id number] Impl Set Bead 2.0mm Vit Dall Miles Stry-Howm 8830-6-995-11 4128 Implanted:Qty : 1 on 06/08/2024 by Babak Carrasquillo MD Right: Hip [employer] [id number] 01/09/2029 6704-0-520 / / [id number] Impl Set Bead 2.0mm Vit Brandt [facility] 1951-0-163-11 4128 Implanted:Qty : 1 on 06/08/2024 by Babak Carrasquillo MD Right: Hip [employer] [id number] 10/06/2028 6704-0-520 / / [id number] Cable Slv Set D-M Bead 2.0mm Vit [facility] 7327-3-166-11 4159 Implanted:Qty : 1 on 06/08/2024 by Babak Carrasquillo MD Right: Hip [employer] [id number] 11/17/2028 6704-0-510 / / [id number] [place] Constrained Liner Neutral 36mm Size I Implanted:Qty : 1 on 09/14/2024 by Babak Carrasquillo MD at [facility] Right: Hip [employer] 03/20/2027 [id number] / [id number] / [id number] Implant Record G7 [place] Multihole 68mm Implanted:Qty : 1 on 09/14/2024 by Babak Carrasquillo MD at [facility] Right: Hip [employer]ESS [employer] 04/04/2026 [id number] / NA / [id number] Implant Record Tatianna Con Sz A Std 50mm Implanted:Qty : 1 on 09/14/2024 by Babak Carrasquillo MD at [facility] Right: Hip [employer] [id number] 09/19/2031-507225 / NA / [id number] Implant Record Implanted:Qty : 1 on 09/14/2024 by Babak Carrasquillo MD at [facility] Right: Hip [employer] [id number] 11/13/2033-242517 / NA / [id number] Explanted Type Area Chief Mechanical Officer Device Identifier Shelf Expiration Date Model / Serial / Lot Bone Cement Explanted:Qty : 2 on 09/14/2024 by Babak Carrasquillo MD at [facility] Bone Cement Right: Hip [employer] 09/15/2024 000 / 000 / 000 Procedures Procedure Name Priority Date/Time Associated Diagnosis Comments RBC MORPHOLOGY REVIEW Routine 01/04/2025 10:40 AM EDT CLL (chronic lymphocytic leukemia) (CMS/HCC V24, CMS/HCC V28) Anemia, unspecified type CBC WITH AUTO DIFFERENTIAL Routine 01/04/2025 10:40 AM EDT CLL (chronic lymphocytic leukemia) (CMS/HCC V24, CMS/HCC V28) Anemia, unspecified type TYPE AND SCREEN Routine 01/04/2025 10:40 AM EDT Iron deficiency anemia due to chronic blood loss Recurrent squamous cell carcinoma of skin COMPREHENSIVE METABOLIC PANEL Routine 01/04/2025 10:40 AM EDT CLL (chronic lymphocytic leukemia) (CMS/HCC V24, CMS/HCC V28) Anemia, unspecified type HAPTOGLOBIN Routine 01/04/2025 10:40 AM EDT CLL (chronic lymphocytic leukemia) (CMS/HCC V24, CMS/HCC V28) Anemia, unspecified type CBC AND DIFFERENTIAL Routine 01/04/2025 10:40 AM EDT CLL (chronic lymphocytic leukemia) (CMS/HCC V24, CMS/HCC V28) Anemia, unspecified type CBC WITH AUTO DIFFERENTIAL Routine 12/28/2024 1:53 PM EDT CLL (chronic lymphocytic leukemia) (CMS/HCC V24, CMS/HCC V28) Anemia, unspecified type TYPE AND SCREEN Routine 12/28/2024 1:53 PM EDT Iron deficiency anemia due to chronic blood loss Recurrent squamous cell carcinoma of skin COMPREHENSIVE METABOLIC PANEL Routine 12/28/2024 1:53 PM EDT CLL (chronic lymphocytic leukemia) (CMS/HCC V24, CMS/HCC V28) Anemia, unspecified type HAPTOGLOBIN Routine 12/28/2024 1:53 PM EDT CLL (chronic lymphocytic leukemia) ([facility]/HCC V24, CMS/HCC V28) Anemia, unspecified type CBC AND DIFFERENTIAL Routine 12/28/2024 1:53 PM EDT CLL (chronic lymphocytic leukemia) ([facility]/HCC V24, [facility] V28) Anemia, unspecified type EXTERNAL XRAY REPORT 12/21/2024 EXTERNAL XRAY REPORT 12/21/2024 EXTERNAL COLONOSCOPY REPORT 12/20/[address] REPORT 12/20/[address] REPORT 12/20/2024 EXTERNAL XRAY REPORT 12/20/2024 EXTERNAL XRAY REPORT 12/20/2024 CBC WITH AUTO DIFFERENTIAL Routine 12/14/2024 1:34 PM EDT CLL (chronic lymphocytic leukemia) ([facility] V24, [facility] V28) Anemia, unspecified type TYPE AND SCREEN Routine 12/14/2024 1:34 PM EDT Iron deficiency anemia due to chronic blood loss Recurrent squamous cell carcinoma of skin COMPREHENSIVE METABOLIC PANEL Routine 12/14/2024 1:34 PM EDT CLL (chronic lymphocytic leukemia) ([facility]/HCC V24, CMS/HCC V28) Anemia, unspecified type HAPTOGLOBIN Routine 12/14/2024 1:34 PM EDT CLL (chronic lymphocytic leukemia) ([facility]/HCC V24, CMS/HCC V28) Anemia, unspecified type CBC AND DIFFERENTIAL Routine 12/14/2024 1:34 PM EDT CLL (chronic lymphocytic leukemia) ([facility]/HCC V24, CMS/HCC V28) Anemia, unspecified type TX REMOVAL CERUMEN IMPACTED IRRIGATION/LAVAGE UNILATERAL Routine 12/10/2024 2:12 PM EDT Bilateral impacted cerumen MANUAL DIFFERENTIAL - SYSMEX WAM Routine 12/07/2024 10:55 AM EDT CLL (chronic lymphocytic leukemia) (CMS/HCC V24, CMS/HCC V28) Anemia, unspecified type CBC WITH AUTO DIFFERENTIAL Routine 12/07/2024 10:55 AM EDT CLL (chronic lymphocytic leukemia) ([facility]/HCC V24, CMS/HCC V28) Anemia, unspecified type TYPE AND SCREEN Routine 12/07/2024 10:55 AM EDT Iron deficiency anemia due to chronic blood loss Recurrent squamous cell carcinoma of skin COMPREHENSIVE METABOLIC PANEL Routine 12/07/2024 10:55 AM EDT CLL (chronic lymphocytic leukemia) ([facility]/HCC V24, CMS/HCC V28) Anemia, unspecified type HAPTOGLOBIN Routine 12/07/2024 10:55 AM EDT CLL (chronic lymphocytic leukemia) ([facility]/HCC V24, CMS/HCC V28) Anemia, unspecified type CBC AND DIFFERENTIAL Routine 12/07/2024 10:55 AM EDT CLL (chronic lymphocytic leukemia) ([facility]/HCC V24, CMS/HCC V28) Anemia, unspecified type TRANSFUSE RED BLOOD CELLS Routine 12/02/2024 11:50 AM EDT CLL (chronic lymphocytic leukemia) ([facility]/HCC V24, CMS/HCC V28) TRANSFUSE RED BLOOD CELLS Routine 12/02/2024 9:09 AM EDT CLL (chronic lymphocytic leukemia) ([facility]/HCC V24, CMS/HCC V28) PREPARE RBC STAT 12/02/2024 8:16 AM [...] 11:20 AM EST CLL (chronic lymphocytic leukemia) (CMS/HCC V24, CMS/HCC V28) Anemia, unspecified type HAPTOGLOBIN Routine 11/09/2024 11:20 AM EST CLL (chronic lymphocytic leukemia) (CMS/HCC V24, CMS/HCC V28) Anemia, unspecified type LACTATE DEHYDROGENASE Routine 11/09/2024 11:20 AM EST CLL (chronic lymphocytic leukemia) ([facility] V24, [facility] V28) BETA 2 MICROGLOBULIN, SERUM Routine 11/09/2024 11:20 AM EST CLL (chronic lymphocytic leukemia) ([facility] V24, [facility] V28) TRANSFUSE RED BLOOD CELLS Routine 11/03/2024 12:47 PM EST CLL (chronic lymphocytic leukemia) ([facility] V24, [facility] V28) PREPARE RBC STAT 11/03/2024 9:54 AM EST CLL (chronic lymphocytic leukemia) ([facility] [place] V24, [facility] V28) CBC WITH AUTO DIFFERENTIAL Routine 11/02/2024 [...] 11:27 AM EST CLL (chronic lymphocytic leukemia) ([facility] V24, [facility] V28) Anemia, unspecified type HAPTOGLOBIN Routine 11/02/2024 11:27 AM EST CLL (chronic lymphocytic leukemia) ([facility] [place] V24, [facility] V28) Anemia, unspecified type TRANSFUSE RED BLOOD CELLS Routine 10/27/2024 1:13 PM EST CLL (chronic lymphocytic leukemia) ([facility] [place] V24, [facility] V28) TRANSFUSE RED BLOOD CELLS Routine 10/27/2024 10:36 AM EST CLL (chronic lymphocytic leukemia) ([facility] V24, [facility] V28) PREPARE RBC STAT 10/26/2024 2:26 PM EST CLL (chronic lymphocytic leukemia) ([facility] [place] V24, [facility] V28) MANUAL DIFFERENTIAL - SYSMEX WAM Routine [...] 10:24 AM EST CLL (chronic lymphocytic leukemia) ([facility] V24, [facility] V28) Anemia, unspecified type HAPTOGLOBIN Routine 10/26/2024 10:24 AM EST CLL (chronic lymphocytic leukemia) ([facility] V24, [facility] V28) Anemia, unspecified type TRANSFUSE RED BLOOD CELLS Routine 10/20/2024 12:46 PM EST CLL (chronic lymphocytic leukemia) ([facility] V24, [facility] V28) PREPARE RBC STAT 10/20/2024 11:09 AM EST CLL (chronic lymphocytic leukemia) ([facility] V24, [facility] V28) RETICULOCYTE COUNT STAT 10/20/2024 9: 55 AM EST CLL (chronic lymphocytic leukemia) ([facility] V24, [facility] V28) HAPTOGLOBIN STAT 10/20/2024 9:55 AM EST CLL (chronic lymphocytic leukemia) ([facility] V24, [facility] V28) TYPE AND SCREEN STAT 10/20/2024 9:55 AM EST Iron deficiency anemia due to chronic blood loss CLL (chronic lymphocytic leukemia) ([facility]/HCC V24, CMS/HCC V28) DIRECT ANTIGLOBULIN TEST Add-On 10/20/2024 9:54 AM EST HEPATIC FUNCTION PANEL Routine 5 3:43 PM EST CLL (chronic lymphocytic leukemia) (CMS/HCC V24, CMS/HCC V28) CBC WITH AUTO DIFFERENTIAL Routine 10/19/2024 3:25 PM EST CLL (chronic lymphocytic leukemia) (CMS/HCC V24, CMS/HCC V28) VITAMIN B12 AND FOLATE Routine 5 3:25 PM EST CLL (chronic lymphocytic leukemia) (CMS/HCC V24, CMS/HCC V28) IRON AND TIBC Routine 10/19/2024 3:25 PM EST CLL (chronic lymphocytic leukemia) ([facility]/HCC V24, CMS/HCC V28) FERRITIN Routine 10/19/2024 3:25 PM EST CLL (chronic lymphocytic leukemia) (CMS/HCC V24, CMS/HCC V28) BETA 2 MICROGLOBULIN, SERUM Routine 10/19/2024 3:25 PM EST CLL (chronic lymphocytic leukemia) ([facility]/HCC V24, CMS/HCC V28) LACTATE DEHYDROGENASE Routine 10/19/2024 3:25 PM EST CLL (chronic lymphocytic leukemia) (CMS/HCC V24, CMS/HCC V28) COMPREHENSIVE METABOLIC PANEL Routine 10/19/2024 3:25 PM EST CLL (chronic lymphocytic leukemia) (CMS/HCC V24, CMS/HCC V28) CBC AND DIFFERENTIAL Routine 10/19/2024 3:25 PM EST CLL (chronic lymphocytic leukemia) (CMS/HCC V24, CMS/HCC V28) LIPID PANEL Routine 10/28/2022 from Last 3 Months or Most Recently Relevant to Health Maintenance Results * (ABNORMAL) RBC morphology review (01/04/2025 10:40 AM EDT) Only the most recent of2 resultswithin the time period is included. Pathologist [facility] Rbc Morphology Consistent with indices Consistent with indices, Normal for LAB HEMETOLOGY METHOD 01/04/2025 1:25 PM EDT [facility] Platelet Morphology - WAM See Note(A) Normal LAB HEMETOLOGY METHOD 01/04/2025 1:25 PM EDT [facility] Comment:PLT: Normal Blood Venous blood specimen / Unknown Venipuncture / Unknown 01/04/2025 10:40 AM EDT 01/04/2025 11:29 AM EDT Lamar Cotton MD LAB BLOOD ORDERABLES Final R esult [facility] [address] [place] [address], * (ABNORMAL) CBC auto differential (01/04/2025 10:40 AM EDT) Only the most recent of11 resultswithin the time period is included. [facility] WBC 10.5 4.8 - 10.8 K/mcL LAB HEMETOLOGY METHOD 01/04/2025 1:25 PM EDT [facility] RBC 3.20(L) 4.50 - 5.50 M/mcL LAB HEMETOLOGY METHOD 01/04/2025 1:25 PM EDT [facility] Hemoglobin 10.5(L) 13.5 - 17.5 g/dL LAB HEMETOLOGY METHOD 01/04/2025 1:25 PM EDT [facility] Hematocrit 32.7(L) 42.0 - 54.0 % LAB HEMETOLOGY METHOD 01/04/2025 1:25 PM EDT [facility] MCV 101.6(H) 79.0 - 98.0 FL LAB HEMETOLOGY METHOD 01/04/2025 1:25 PM EDT [facility] MCH 32.6(H) 27.0 - 32.0 pcg LAB HEMETOLOGY METHOD 01/04/2025 1:25 PM EDT [facility] MCHC 32.1 32.0 - 37.0 g/dL LAB HEMETOLOGY METHOD 01/04/2025 1:25 PM EDT [facility] RDW 17.5(H) 11.0 - 15.0 % LAB HEMETOLOGY METHOD 01/04/2025 1:25 PM EDT [facility] Platelets 104(L) 130 - 400 K/mcL LAB HEMETOLOGY METHOD 01/04/2025 1:25 PM EDT [facility] MPV 9.1 7.0 - 11.0 FL LAB HEMETOLOGY METHOD 01/04/2025 1:25 PM EDT [facility] NRBC 0.0 <1.0 % LAB HEMETOLOGY METHOD 01/04/2025 1:25 PM EDT [facility] NRBC Absolute 0.00 <0.10 K/mcL LAB HEMETOLOGY METHOD 01/04/2025 1:25 PM EDT [facility] Neutrophils Relative 19.8 % LAB HEMETOLOGY METHOD 01/04/2025 1:25 PM EDT [facility] Comment:This is an appended report. These results have been appended to a previously preliminary verified report. Lymphocytes Relative 66.5 % LAB HEMETOLOGY METHOD 01/04/2025 1:25 PM EDT [facility] Comment:This is an appended report. These results have been appended to a previously preliminary verified report. Monocytes Relative 12.6 % LAB HEMETOLOGY METHOD 01/04/2025 1:25 PM EDT [facility] Comment:This is an appended report. These results have been appended to a previously preliminary verified report. Eosinophils Relative 0.6 % LAB HEMETOLOGY METHOD 01/04/2025 1:25 PM EDT [facility] Comment:This is an appended report. These results have been appended to a previously preliminary verified report. Basophils Relative 0.2 % LAB HEMETOLOGY METHOD 01/04/2025 1:25 PM [facility] Comment:This is an appended report. These results have been appended to a previously preliminary verified report. Immature Granulocytes Relative 0.3 % LAB HEMETOLOGY METHOD 01/04/2025 1:25 PM T [facility] Comment:This is an appended report. These results have been appended to a previously preliminary verified report. Neutrophils Absolute 2.09 1.50 - 7.00 K/mcL LAB HEMETOLOGY METHOD 01/04/2025 1:25 PM [facility] Comment:This is an appended report. These results have been appended to a previously preliminary verified report. Lymphocytes Absolute 6.99(H) 1.00 - 5.00 K/mcL LAB HEMETOLOGY METHOD 01/04/2025 1:25 PM [facility] Comment:This is an appended report. These results have been appended to a previously preliminary verified report. Monocytes Absolute 1.32(H) 0.20 - 1.00 K/mcL LAB HEMETOLOGY METHOD 01/04/2025 1:25 PM [facility] Comment:This is an appended report. These results have been appended to a previously preliminary verified report. Eosinophils Absolute 0.06 0.00 - 0.50 K/mcL LAB HEMETOLOGY METHOD 01/04/2025 1:25 PM [facility] Comment:This is an appended report. These results have been appended to a previously preliminary verified report. Basophils Absolute 0.02 0.00 - 0.20 K/mcL LAB HEMETOLOGY METHOD 01/04/2025 1:25 PM [facility] Comment:This is an appended report. These results have been appended to a previously preliminary verified report. Immature Granulocytes Absolute 0.03 0.00 - 0.03 K/mcL LAB HEMETOLOGY METHOD 01/04/2025 1:25 PM EDT [facility] Comment:This is an appended report. These results have been appended to a previously preliminary verified report. Blood Venous blood specimen / Unknown Venipuncture / Unknown 01/04/2025 10:40 AM EDT 01/04/2025 11:29 AM EDT Lamar Cotton MD LAB BLOOD ORDERABLES Final R esult Performing Organization Address [facility]/ZIP Co de Phone Number [facility] [address] [place] [address], * Type and screen (01/04/2025 10:40 AM EDT) Only the most recent of11 resultswithin the time period is included. Pathologist [facility] ABO Group A 01/04/2025 12:43 PM EDT [facility] Rh Type Positive 01/04/2025 12:43 PM EDT [facility] Antibody Screen Negative 01/04/2025 12:43 PM EDT [facility] Blood Venous blood specimen / Unknown Venipuncture / Unknown 01/04/2025 10:40 AM EDT 01/04/2025 11:27 AM EDT Lamar Cotton MD LAB BLOOD BANK TEST ORDERABL ES Final Result Performing Organization Address [facility]/ZIP Co de Phone Number [facility] [address] [place] [address], * Haptoglobin (01/04/2025 10:40 AM EDT) Only the most recent of11 resultswithin the time period is included. Haptoglobin 32 16 - 200 mg/dL LAB CHEMISTRY METHOD 01/04/2025 12:31 PM EDT [facility] Blood Venous blood specimen / Unknown Venipuncture / Unknown 01/04/2025 10:40 AM EDT 01/04/2025 11:30 AM EDT Lamar Cotton MD LAB BLOOD ORDERABLES Final R esult [facility] [address] [place] [address], [place] [phone] * (ABNORMAL) Comprehensive metabolic panel (01/04/2025 10:40 AM EDT) Only the most recent of11 resultswithin the time period is included. Sodium 137 133 - 145 mmol/L LAB CHEMISTRY METHOD 01/04/2025 12:34 PM [facility] Potassium 3.8 3.5 - 5.5 mmol/L LAB CHEMISTRY METHOD 01/04/2025 12:34 PM [facility] Chloride 101 96 - 110 mmol/L LAB CHEMISTRY METHOD 01/04/2025 12:34 PM [facility] CO2 28 21 - 32 mmol/L LAB CHEMISTRY METHOD 01/04/2025 12:34 PM [facility] Anion Gap 8 3 - 11 LAB CHEMISTRY METHOD 01/04/2025 12:34 PM [facility] Glucose 121(H) 70 - 100 mg/dL LAB CHEMISTRY METHOD 01/04/2025 12:34 PM [facility] BUN 14 5 - 25 mg/dL LAB CHEMISTRY METHOD 01/04/2025 12:34 PM [facility] Creatinine 0.71 0.70 - 1.30 mg/dL LAB CHEMISTRY METHOD 01/04/2025 12:34 PM [facility] eGFR 96 >=60 mL/min/1. 73m2 LAB CHEMISTRY METHOD 01/04/2025 12:34 PM [facility] Comment:Calculation based on the??Chronic Kidney Disease Epidemiology Collaboration (CKD-EPI) equation refit??without adjustment for race. BUN/Creatinine Ratio 19.7 LAB CHEMISTRY METHOD 01/04/2025 12:34 PM [facility] Calcium 8.7 8.5 - 10.5 mg/dL LAB CHEMISTRY METHOD 01/04/2025 12:34 PM [facility] AST (SGOT) 32 10 - 42 unit/L LAB CHEMISTRY METHOD 01/04/2025 12:34 PM [facility] ALT (SGPT) 21 10 - 60 unit/L LAB CHEMISTRY METHOD 01/04/2025 12:34 PM [facility] Alkaline Phosphatase 142(H) 42 - 121 unit/L LAB CHEMISTRY METHOD 01/04/2025 12:34 PM [facility] Total Protein 6.6 6.0 - 8.0 g/dL LAB CHEMISTRY METHOD 01/04/2025 12:34 PM [facility] Albumin 3.8 3.2 - 5.0 g/dL LAB CHEMISTRY METHOD 01/04/2025 12:34 PM [facility] Total Bilirubin 0.6 0.0 - 1.4 mg/dL LAB CHEMISTRY METHOD 01/04/2025 12:34 PM [facility] Blood Venous blood specimen / Unknown Venipuncture / Unknown 01/04/2025 10:40 AM EDT 01/04/2025 11:30 AM EDT us Lamar Cotton MD LAB BLOOD ORDERABLES Final R esult [facility] [address] [place] [address], * External Xray Report (12/21/2024) Only the most recent of4 resultswithin the time period is included. Anatomical Region Laterality Modality Radiographic Bernadette ging us Provider [facility] IMG XR PROCEDURES Final Result * External Colonoscopy Report (12/20/2024) Anatomical Region Laterality Modality Endoscopy Result [facility] GI~PROCEDURE ORDERABLES Final Result * External CT Report (12/20/2024) Only the most recent of2 resultswithin the time period is included. Anatomical Region Laterality Modality Computed Tomogra phy Result [facility] IMG CT PROCEDURES Final Result * TX REMOVAL CERUMEN IMPACTED IRRIGATION/LAVAGE UNILATERAL (12/10/2024 2:12 [...] of procedure: ??Tolerated well, no immediate complications Result [facility] Laura GOLDSTEIN IN CLINIC/BEDSIDE ORDERABL ES Final Result * (ABNORMAL) Manual differential (12/07/2024 10:55 AM EDT) Only the most recent of2 resultswithin the time period is included. Neutrophils % 17.0 % LAB HEMETOLOGY METHOD 12/07/2024 1:54 PM [facility] Lymphocytes % 81.0 % LAB HEMETOLOGY METHOD 12/07/2024 1:54 PM [facility] Monocytes % 2.0 % LAB HEMETOLOGY METHOD 12/07/2024 1:54 PM [facility] Eosinophils % 0.0 % LAB HEMETOLOGY METHOD 12/07/2024 1:54 PM [facility] Basophils % 0.0 % LAB HEMETOLOGY METHOD 12/07/2024 1:54 PM [facility] Neutrophils Absolute Manual 1.89 1.50 - 7.00 K/mcL LAB HEMETOLOGY METHOD 12/07/2024 1:54 PM [facility] Lymphocytes Absolute 8.99(H) 1.00 - 5.00 K/mcL LAB HEMETOLOGY METHOD 12/07/2024 1:54 PM [facility] Monocytes Absolute Manual 0.22 0.20 - 1.00 K/mcL LAB HEMETOLOGY METHOD 12/07/2024 1:54 PM [facility] Eosinophils Absolute Manual 0.00 0.00 - 0.50 K/mcL LAB HEMETOLOGY METHOD 12/07/2024 1:54 PM [facility] Basophils Absolute Manual 0.00 0.00 - 0.20 K/mcL LAB HEMETOLOGY METHOD 12/07/2024 1:54 PM [facility] Rbc Morphology Consistent with indices Consistent with indices, Normal for [place] LAB HEMETOLOGY METHOD 12/07/2024 1:54 PM [facility] Platelet Morphology - WAM Normal Normal LAB HEMETOLOGY METHOD 12/07/2024 1:54 PM [facility] Blood Venous blood specimen / Unknown Venipuncture / Unknown 12/07/2024 10:55 AM EDT 12/07/2024 11:28 AM EDT Lamar Cotton MD LAB BLOOD ORDERABLES Final R esult [facility] [address] [place] [address], [place] [phone] * Transfuse RBC (12/02/2024 2:20 PM EDT) Only the most recent of8 resultswithin the time period is included. Lamar Cotton MD BLOOD TRANSFUSION ORDERABLES Final Result * Prepare RBC: 2 Units (12/02/2024 8:16 AM EDT) Only the most recent of4 resultswithin the time period is included. [facility] Signature Product Code [id number] 12/02/2024 11:49 AM EDT [facility] Unit Number [id number] 12/03/19 11:49 AM EDT [facility] Crossmatch Compatible 12/02/2024 8:19 AM EDT [facility] Dispense Status Transfused 12/02/2024 11:49 AM EDT [facility] Unit ABO Rh APOS 12/02/2024 11:49 AM EDT [facility] Unit Expiration Date Time [id number] 12/02/2024 11:49 AM EDT [facility] Unit Blood Type 6200 12/02/2024 11:49 AM EDT [facility] Product Code [id number] 12/02/2024 9:09 AM EDT [facility] Unit Number [id number] 12/03/19 9:09 AM EDT [facility] Crossmatch Compatible 12/02/2024 8:20 AM EDT [facility] Dispense Status Transfused 12/02/2024 9:09 AM EDT [facility] Unit ABO Rh APOS 12/02/2024 9:09 AM EDT [facility] Unit Expiration Date Time [id number] 12/02/2024 9:09 AM EDT [facility] Unit Blood Type 6200 12/02/2024 9:09 AM EDT [facility] Blood Venous blood specimen / Unknown 12/02/2024 8:16 AM EDT 11/30/2024 1:32 PM EDT Lamar Cotton MD BLOOD BANK PRODUCT ORDERABLE S Final Result [facility] [address] [place] [address], [place] [phone] * CT Neck Soft Tissue w Contrast (11/17/2024 10:40 AM EDT) Anatomical Region Laterality Modality Head and Neck Computed Tomogra phy 11/17/2024 1:50 PM EDT Impressions 11/17/2024 1:59 PM EDT Impression: No evidence of recurrent mass or cervical lymphadenopathy. [facility] ([id number]) -------- FINAL REPORT -------- Dictated By: Jailyn Ballesteros Dictated Date: 11/17/2024 13:50 ET Assigned Physician: Jailyn Ballesteros Reviewed and Electronically Signed By: Jailyn Ballesteros Signed Date: 11/17/2024 13:59 ET Workstation ID: [id number] Transcribed By: Self Edit Transcribed Date: 11/17/2024 13:50 ET Narrative 11/17/2024 1:59 PM EDT History: Skin carcinoma right cheek, with lymph nodes, status post radiation treatment. Surveillance. Comparison: 08/18/24, 12/22/23, 02/19/23 Technique: Helical volumetric imaging of the neck was performed during the uneventful intravenous administration of 90 cc Isovue-370. DLP: 397.83 mGy/cm GE Twenty20.compeed VCT Iterative reconstruction technique Findings: Surgical clips [...] of 90 cc Isovue-370. DLP: 397.83 mGy/cm Yabidupeed VCT Iterative reconstruction technique Findings: Surgical clips [...] of recurrent mass or cervical lymphadenopathy. [facility] TRISTON ([id number]) -------- FINAL REPORT -------- Dictated By: Jailyn Ballesteros Dictated Date: 11/17/2024 13:50 ET Assigned Physician: Jailyn Ballesteros Reviewed and Electronically Signed By: Jailyn Ballesteros Signed Date: 11/17/2024 13:59 ET Workstation ID: [id number] Transcribed By: Self Edit Transcribed Date: 11/17/2024 13:50 ET us Mimi Dawson NP IMG CT PROCEDURES Fin [...] pulmonary nodule. 3. No developing thoracic lymphadenopathy. [facility] ([id number]) -------- FINAL REPORT -------- Dictated By: Jailyn Ballesteros Dictated Date: 11/17/2024 13:34 ET Assigned Physician: Jailyn Ballesteros Reviewed and Electronically Signed By: Jailyn Ballesteros Signed Date: 11/17/2024 13:49 ET Workstation ID: [id number] Transcribed By: Self Edit Transcribed Date: 11/17/2024 13:34 ET Narrative 11/17/2024 1:49 PM EDT History: Follow-up lung opacities noted on PET/CT. Personal history of squamous cell carcinoma of the face, status post radiation therapy. Comparison: 08/18/24, 04/14/24, 12/22/23, PET/CT 09/23/23 Technique: Helical volumetric imaging of the thorax was performed during the uneventful intravenous administration of 90 cc Isovue-370. DLP: 523.77 mGy/cm [place] VCT Iterative reconstruction technique Findings: The trachea [...] of 90 cc Isovue-370. DLP: 523.77 mGy/cm [employer] VCT Iterative reconstruction technique Findings: The trachea [...] developing pulmonarynodule. 3. No developing thoracic lymphadenopathy. Telealbert GOLDSTEIN ([id number]) -------- FINAL REPORT -------- Dictated By: Jailyn Ballesteros Dictated Date: 11/17/2024 13:34 ET Assigned Physician: Jailyn Ballesteros Reviewed and Electronically Signed By: Jailyn Ballesteros Signed Date: 11/17/2024 13:49 ET Workstation ID: [id number] Transcribed By: Self Edit Transcribed Date: 11/17/2024 13:34 ET Mimi Dawson DEVELOPMENTAL EDUCATION INSTRUCTOR IMG CT PROCEDURES Fin al Result * (ABNORMAL) Lactate dehydrogenase (11/09/2024 11:20 AM EST) Only the most recent of2 resultswithin the time period is included. LDH 1,218(H) 120 - 246 unit/L LAB CHEMISTRY METHOD 11/09/2024 2:12 PM EST [facility] Blood Venous blood specimen / Unknown Venipuncture / Unknown 11/09/2024 11:20 AM EST 11/09/2024 12:19 PM EST Lamar Cotton MD LAB BLOOD ORDERABLES Final R esult Performing Organization Address City/[facility]/ZIP Co de Phone Number [facility] [address] [place] [address], [place] [phone] * (ABNORMAL) Beta 2 microglobulin, serum (11/09/2024 11:20 AM EST) Only the most recent of2 resultswithin the time period is included. Pathologist [facility] Beta-2 Microglobulin 2.9(H) 0.7 - 1.8 mg/L LAB CHEMISTRY METHOD 11/09/2024 2:12 PM EST [facility] Blood Venous blood specimen / Unknown Venipuncture / Unknown 11/09/2024 11:20 AM EST 11/09/2024 12:19 PM EST Lamar Cotton MD LAB BLOOD ORDERABLES Final R esult Performing Organization Address City/[facility]/ZIP Co de Phone Number [facility] [address] [place] [address], [place] [phone] * (ABNORMAL) Reticulocyte count (10/20/2024 9:55 AM EST) Retic Ct Abs 0.200(H) 0.030 - 0.090 M/mcL LAB HEMETOLOGY METHOD 10/20/2024 10:[address] [facility] Retic Ct Pct 12.8(H) 0.7 - 1.7 % LAB HEMETOLOGY METHOD 10/20/2024 10:[address] [facility] Immature Retic Fract 36.4(H) 2.3 - 15.9 % LAB HEMETOLOGY METHOD 10/20/2024 10:[address] [facility] Reticulocyte Hemoglobin 32.9 >29.0 pcg LAB HEMETOLOGY METHOD 10/20/2024 10:[address] [facility] Blood Venous blood specimen / Unknown Venipuncture / Unknown 10/20/2024 9:55 AM EST 10/20/2024 10:02 AM EST Lamar Cotton MD LAB BLOOD ORDERABLES Final R esult [facility] [address] [place] [address], [place] [phone] * Direct antiglobulin test (10/20/2024 9:54 AM EST) BETTINA Polyspecific Negative 10/20/19 25 6:35 PM EST [facility] Blood Venous blood specimen / Unknown Venipuncture / Unknown 10/20/2024 9:54 AM EST 10/20/2024 4:43 PM EST us Lamar Cotton MD LAB BLOOD BANK TEST ORDERABL ES Final Result [facility] [address] [place] [address], [place] [phone] * (ABNORMAL) Hepatic function panel (10/19/2024 3:43 PM EST) [facility] Total Protein 6.6 6.0 - 8.0 g/dL LAB CHEMISTRY METHOD 10/19/2024 5:22 PM EST [facility] Albumin 3.5 3.2 - 5.0 g/dL LAB CHEMISTRY METHOD 10/19/2024 5:[address] [facility] Total Bilirubin 1.2 0.0 - 1.4 mg/dL LAB CHEMISTRY METHOD 10/19/2024 5:22 PM EST [facility] Bilirubin, Direct 0.4(H) 0.0 - 0.3 mg/dL LAB CHEMISTRY METHOD 10/19/2024 5:[address] [facility] Bilirubin, Indirect 0.8 0.0 - 1.1 mg/dL LAB CHEMISTRY METHOD 10/19/2024 5:[address] [facility] ALT (SGPT) 201(H) 10 - 60 unit/L LAB CHEMISTRY METHOD 10/19/2024 5:[address] [facility] Comment:Results verified by repeat testing AST (SGOT) 114(H) 10 - 42 unit/L LAB CHEMISTRY METHOD 10/19/2024 5:[address] [facility] Alkaline Phosphatase 388(H) 42 - 121 unit/L LAB CHEMISTRY METHOD 10/19/2024 5:[address] [facility] Blood Venous blood specimen / Unknown Venipuncture / Unknown 10/19/2024 3:43 PM EST 10/19/2024 4:33 PM EST us Babak Carrasquillo MD LAB BLOOD ORDERABLES Final Resu lt [facility] [address] [place] [address], * (ABNORMAL) Vitamin B12 and folate (10/19/2024 3:25 PM EST) [facility] Vitamin B-12 >2,000(H) 250 - 900 pcg/mL LAB CHEMISTRY METHOD 10/19/2024 7:19 PM EST [facility] Folate >20.0(H) 2.8 - 17.0 ng/ml LAB CHEMISTRY METHOD 10/19/2024 7:19 PM EST [facility] Blood Venous blood specimen / Unknown Venipuncture / Unknown 10/19/2024 3:25 PM EST 10/19/2024 4:33 PM EST Lamar Cotton MD LAB BLOOD ORDERABLES Final R esult [facility] [address] [place] [address], [place] [phone] * (ABNORMAL) Iron and TIBC (10/19/2024 3:25 PM EST) Iron 99 50 - 160 mcg/dL LAB CHEMISTRY METHOD 10/19/2024 7:39 PM EST [facility] TIBC 222(L) 250 - 450 mcg/dL LAB CHEMISTRY METHOD 10/19/2024 7:39 PM EST [facility] Iron Saturation 45 20 - 50 % LAB CHEMISTRY METHOD 10/19/2024 7:39 PM EST [facility] Blood Venous blood specimen / Unknown Venipuncture / Unknown 10/19/2024 3:25 PM EST 10/19/2024 4:33 PM EST Lamar Cotton MD LAB BLOOD ORDERABLES Final R esult [facility] [address] [place] [address], [place] [phone] * (ABNORMAL) Ferritin (10/19/2024 3:25 PM EST) Ferritin 1,309(H) 26 - 388 ng/mL LAB CHEMISTRY METHOD 10/19/2024 7:19 PM EST [facility] Blood Venous blood specimen / Unknown Venipuncture / Unknown 10/19/2024 3:25 PM EST 10/19/2024 4:33 PM EST Lamar Cotton MD LAB BLOOD ORDERABLES Final R esult [facility] [address] [place] [address], * Lipid panel (10/28/2022) LDL/HDL Ratio 3 <=5 Triglycerides 94 <=150 mg/dL Cholesterol 127 <=200 mg/dL HDL 44 >=40 mg/dL LDL Cholesterol 65 <=100 mg/dL Blood Venous blood specimen / Unknown Historical Provider LAB BLOOD ORDERABLES Jennifer l Result from Last 3 Months or Most Recently Relevant to Health Maintenance Insurance [facility] MEDICARE [facility] Advance Directives * Full Code - Confirmed [...] currently active code status orders. Care Teams [employer]rella Mender Relationship Specialty Start Date End Date Aminata Moreno MD [address] [place] [id number] PCP - General Internal Medicine 10/21/24
--- OUTSIDE RECORDS SUMMARY | 2025-01-09 11:59 | XMS_ITS | Encounter Summary ---
Author Organization [facility] Address [address] [place] [address] Care Team Providers Care Payloader Machine Operator Name Role Phone Suzanna Mcgill Primary Care Provider [phone] Encounter Details Date Type Department Care Team (Late st Contact Info) Description 08/26/2022 Lab Requisition [facility] [address] [place] [address] Ashu Mason MD [address] [place] [address] [id number] Social History Tobacco Use Types Packs/Day Years [...] of this encounter Procedures * Due to [place] People to Remember law, this organization might not be sharing negative HIV tests. Procedure Name Priority Date/Time Associated Diagnosis Comments NON-GYNECOLOGIC CYTOLOGY 08/26/2022 8:00 AM EST documented in this encounter Results * Due to [place] People to Remember law, this organization might not be sharing negative HIV tests. * (ABNORMAL) Non-Gynecologic Cytology (08/26/2022 8:00 AM EST) Final Diagnosis Specimen 1: Cheek, Right; Incoming consult, FNA Positive for malignant cells. Squamous cell carcinoma, keratinizing. See note. Note: The case was labelled as Right cheek, FNA, NOS , part 1 and part 2. Both part 1 and part 2 show squamous cell carcinoma. [facility] MANUAL 08/27/2022 10:43 AM EST [facility] PATH[facility] LABORATORY at 1043 EST Clinical History SCC Cheek [facility] 08/27/2022 10:43 AM EST [facility] LAB[facility] Gross Description Specimen 1: Received from [facility] are 6 glass slides labeled [id number] corresponding to a right cheek FNA obtained on 08/12/2022, according to the accompanying cytology report bearing the patient's name and date of . [facility] MANUAL 08/27/2022 10:43 AM EST [facility] - [facility] PATH[facility] LAB[facility] Embedded Images [facility] 08/27/2022 10:43 AM EST End[facility] - [facility] THREE ANATOMIC PATHOLOGY LABORATORY Resulting Agency Case was signed out at [facility], Department of Pathology, [facility] [id number] [facility] MANUAL 08/27/2022 10:43 AM EST [facility] LAB[facility] Abnormal Yes(A) (none) [facility] MANUAL 08/27/2022 10:43 AM EST [facility] Report Header Non-Gynecologic Cytology Report ? Case: [id number] ? Authorizing Provider: ??Ashu Mason MD ? Collected: ? 08/26/2022 0800 ? Ordering Location: ? [facility] ? Received: ?08/26/2022 1546 ? Center [facility] ? Pathologist: ? Rigoberto Brito MD ? Specimen: ?Cheek, Right, Incoming consult, FNA ? 08/27/2022 10:43 AM EST [facility]IN[facility] ANATOMIC PATHOLOGY LABORATORY Structure of right cheek / Unknown 08/26/2022 8:00 AM EST 08/26/2022 3:46 PM EST us Ashu Mason MD LAB PATHOLOGY/CYTOLOGY ORDER FACUNDO Final Result Performing Organization Address City/State/[facility] Co de Phone Number [facility] [address] [place] [address], documented in this encounter Visit Diagnoses Not on filedocumented in this encounter Care Teams Payloader Machine Operator Relationship Specialty Start Date End Date Suzanna Mcgill [address] [place] [address] PCP - General 08/14/22 documented as of this encounter
--- OUTSIDE RECORDS SUMMARY | 2025-01-09 11:59 | XMS_ITS | Encounter Summary ---
Author Organization [facility] Address [address] [place] [address] Care Team Providers Care Travel Agent Name Role Phone Aminata Moreno MD Primary Care Provider Encounter Details Date Type Department Care Team (Late st Contact Info) Description 07/10/2024 Lab Requisition [facility] - Main Lab [address] [place] [address] Ally Ortega MD [address] [place] [address] Streptococcal infection, unspecified site Social History Tobacco [...] Description 01/10/2025 9:00 AM EDT Office Visit [facility] Hematology Oncology [address] [place] [address] Lamar Cotton MD [address] [place] [address] 03/16/2025 11:00 AM EDT Telemedicine Infectious Disease - [place] [address] [place] [address] Neelima Peoples MD [address] [place] [address] documented as of this encounter Visit Diagnoses Diagnosis Streptococcal infection, unspecified site documented in this encounter Additional Health Concerns Infection Onset Date Last Indicated Resolved Time Tuberculosis Rule-Out 09/06/2024 09/06/20242024 8:27 AM EST documented as of this encounter Care Teams Travel Agent Relationship Specialty Start Date End Date Aminata Moreno MD [address] [place] [address] PCP - General Internal Medicine 10/21/24 documented as of this encounter
--- OUTSIDE RECORDS SUMMARY | 2025-01-09 11:59 | XMS_ITS | Clinical Summary ---
Author Organization [facility] Address [address] [place] [address] Care Team Providers Care Conventional Mortgage Underwriter Name Role Phone Nano Betsymaverick Primary Care Provider [phone] Allergies Active Allergy Reactions Criticality Noted Date [...] tea prior to administrati on. Active mv-mn/C/glutamin /lysin/bmob284 ([place], ASCORBATE SODIUM, ORAL) Take by mouth. [...] veins 11/16/2015 Coronary artery disease invo lving [place] coronary artery of [place] heart without angina pectoris 09/13/2015 Overview (08/26/2022): Stenting x [address] Thapa in [place], [place] Stenting x 2 in [address] Thapa in [place] Hyperlipidemia 09/13/2015 Primary hypertension 09/13/2015 Immunizations [...] Completed 09/10/2023 Medical Devices Implanted Type Area Customer Care Team Coach Device Identifier Shelf Expiration Date Model / Serial / Lot Drill Bit Twist [employer] Standard Stainless Steel Sterile [id number] - [id number] Implanted:Qty: 1 on 09/03/2022 by Ashu Mason MD at [facility] [employer] [id number] / / Procedures * Due to [facility] law, this organization might not be sharing negative HIV tests. Procedure Name Priority Date/Time Associated Diagnosis Comments BASIC METABOLIC PANEL Routine 03/01/2023 3:38 AM EDT from Last 3 Months or Most Recently Relevant to Health Maintenance Results * Due to [place] qualifyor law, this organization might not be sharing negative HIV tests. * (ABNORMAL) Basic Metabolic Panel (03/01/2023 3:38 AM EDT) NA 132(L) 135 - 145 mmol/L 03/01/2023 4:37 AM EDT [facility] K 4.5 3.5 - 5.3 mmol/L 03/01/2023 4:37 AM EDT [facility] Cl 99 97 - 110 mmol/L 03/01/2023 4:37 AM EDT [facility] CO2 26 24 - 32 mmol/L 03/01/2023 4:37 AM EDT [facility] BUN 9 7 - 23 mg/dL 03/01/2023 4:37 AM EDT [facility] Creatinine 0.60 0.60 - 1.30 mg/dL 03/01/2023 4:37 AM EDT [facility] Glucose 149(H) 70 - 99 mg/dL 03/01/2023 4:37 AM EDT [facility] Calcium 8.7 8.7 - 10.7 mg/dL 03/01/2023 4:37 AM EDT [facility] Anion Gap 7 5 - 15 03/01/2023 4:37 AM EDT [facility] eGFR >90 >=60 mL/min/1. 73m2 03/01/2023 4:37 AM EDT [facility] Comment:The estimated glomer ular [...] MD LAB BLOOD ORDERABLES Final R esult [place] [facility] [address] [place] [address], from Last 3 Months or Most Recently Relevant to Health Maintenance Insurance [facility] MCR REPLACE AARP Advance Directives Documents on File Type Date Recorded Patient Director Of Student Services Expl anation Health Care Proxy 08/26/2022 12:51 [...] 6:07 AM 09/03/2022 4:22 PM Care Teams Conventional Mortgage Underwriter Relationship Specialty Start Date End Date Suzanna Mcgill [address] [place] [address] PCP - General 08/14/22
--- OUTSIDE RECORDS SUMMARY | 2025-01-09 12:00 | XMS_ITS | Clinical Summary ---
Author Organization [facility] Address [address] [place] [address] Care Team Providers Care Store Promoter Name Role Phone Ananda Whiting MD Primary [...] 90 tablet 0 02/20/2021 Active Fexofenadine HCl (LLIIANA ALLERGY PO) Take by mouth daily. 0 [...] as needed. 0 Active Cobalamin Combinations (Vitamin O74-Ofddv Acid) 500-400 MCG TABS Take by mouth [...] skin 2022 Coronary artery disease invo lving [place] coronary artery of [place] heart without angina pectoris 12/05/2017 Essential hypertension [...] this topic Medical Devices Implanted Type Area Tray Line Supervisor Device Identifier Shelf Expiration Date Model / Serial / Lot Cement Bone Surg Simplex Radiopq [facility] 0729-4-782-114 092 - [id number] Implanted:Qty: 1 on 06/08/2024 by Babak Carrasquillo MD at [facility] Right: Hip [employer] [id number] 05/08/2026 6191-1-010 / / [id number] Impl Set Bead 2.0mm Vit [facility] 3315-8-378-114 128 - [id number] Implanted:Qty: 1 on 06/08/2024 by Babak Carrasquillo MD at [facility] Right: Hip [employer] [id number] 01/19/2029 6704-0-520 / / [id number] Impl Set Bead 2.0mm Vit [facility] 0066-6-903-114 128 - [id number] Implanted:Qty: 1 on 06/08/2024 by Babak Carrasquillo MD at [facility] and Med Right: Hip [employer] [id number] 01/19/2029 6704-0-520 / / [id number] Impl Set Bead 2.0mm Vit [facility] 8491-7-622-114 128 - [id number] Implanted:Qty: 1 on 06/08/2024 by Babak Carrasquillo MD at [facility] and Med Right: Hip [employer] [id number] 01/09/2029 6704-0-520 / / [id number] Impl Set Bead 2.0mm Vit [facility] 8184-5-629-114 128 - [id number] Implanted:Qty: 1 on 06/08/2024 by Babak Carrasquillo MD at [facility] and Med Right: Hip [facility] [id number] 01/09/2029 6704-0-520 / / [id number] Impl Set Bead 2.0mm Vit [facility] Kaminski-How 5783-0-218-114 128 - [id number] Implanted:Qty: 1 on 06/08/2024 by Babak Carrasquillo MD at [facility] and Med Right: Hip [facility] [facility] [id number] 10/06/2028 6704-0-520 / / [id number] Cable Slv Set D-M Bead 2.0mm Vit Med Stry-Howm 3837-1-846-114 159 - [id number] Implanted:Qty: 1 on 06/08/2024 by Babak Carrasquillo MD at [facility] and [facility] Right: Hip [facility] [id number] 11/17/2028 6704-0-510 / / [id number] Cable Slv Set D-M Bead 2.0mm Vit Med Stry-Howm 1263-2-062-114 159 - [id number] Implanted:Qty: 1 on 06/08/2024 by Babak Carrasquillo MD at [facility] and Med Right: Hip [facility] [id number] 11/17/2028 6704-0-510 / / [id number] Cable Slv Set D-M Bead 2.0mm Vit Med Stry-How 0672-6-099-114 159 - [id number] Implanted:Qty: 1 on 06/08/2024 by Babak Carrasquillo MD at [facility] Right: Hip [employer] [facility] [id number] 11/17/2028 6704-0-510 / / [id number] Cable Slv Set D-M Bead 2.0mm Vit Med Stry-How 4650-9-482-114 159 - [id number] Implanted:Qty: 1 on 06/08/2024 by Babak Carrasquillo MD at [facility] Right: Hip [employer] [facility] [id number] 11/17/2028 6704-0-510 / / [id number] Plate Sales Support Coordinator Troch Lg 210mm Vitallium W 2 2mm Cabl Stry-How 0656-6-535-363 390 - [id number] Implanted:Qty: 1 on 06/08/2024 by Babak Carrasquillo MD at [facility] Right: Hip [employer] [id number] 02/19/2028 6704-3-093 / / [id number] Cement Bone Surg Simplex Radiopq Str-How 4980-3-408-114 092 - [id number] Implanted:Qty: 1 on 06/08/2024 by Babak Carrasquillo MD at [facility] Right: Hip [employer] [facility] [id number] 05/08/2026 6191-1-010 / / [id number] Explanted Type Area Tray Line Supervisor Device Identifier Shelf Expiration Date Model / Serial / Lot Femoral Head Explanted:Qty: 1 on 06/08/2024 by Babak Carrasquillo MD at [facility] Right: Hip Femoral Stem Explanted:Qty: 1 on 06/08/2024 at [facility] Right: Hip Acetabular Liner Explanted:Qty: 1 on 06/08/2024 at [facility] Right: Hip Screw Explanted:Qty: 1 on 06/08/2024 at [facility] Right: Hip Screw Explanted:Qty: 1 on 06/08/2024 at [facility] Right: Hip Screw Explanted:Qty: 1 on 06/08/2024 [place] [facility] Right: Hip Acetabular Shell Explanted:Qty: 1 on 06/08/2024 at [facility] Right: Hip Advance Directives For more information, please contact: [phone] Latest Code Status on File Code Status [...] way: discussion with patient . Care Teams Store Promoter Relationship Specialty Start Date End Date Ananda Whiting MD [address] [facility] [address] [place] [address] PCP - General Geriatric Medicine 06/03/24
--- OUTSIDE RECORDS SUMMARY | 2025-01-09 12:00 | XMS_ITS ---
Author Organization [facility] Address [address] [place] [address] Care Team Providers Care Threshing Operator Name Role Phone Ananda Whiting MD Primary Care Provider [phone] Active Problems Problem Noted Date Diagnosed Date Prosthetic hip infection, initial encounter 09/2023 Recurrent squamous cell carcinoma of skin 2022 Coronary artery disease invo lving [place] coronary artery of [place] heart without angina pectoris 12/05/2017 Essential hypertension 12/05/2017 Pure hypercholesterolemia 12/05/2017 Current Oncology Plans No current plan information found. Past Plans ONCOLOGY TREATMENT Plan Name Start Date Discontinue Date Treatment Medications Discontinue Reason Plan Provider [facility] BCN OP CISPLATIN 100MG/M2 (FOR USE WITH [...] treatments are documented for this patient in [facility]. Treatments may have been administered in another system.
--- OUTSIDE RECORDS SUMMARY | 2025-01-09 12:00 | XMS_ITS ---
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 Head and neck cancer ([facility] V24, [facility] V28) 09/03/2022 Assessment & Plan (08/25/2024 12:48 PM EST): CT head and neck performed 08/18/2024: All negative for mass, metastatic disease, lymphadenopathy. Followed closely by radiation oncology. See note below. Infrarenal abdominal aortic aneurysm (AAA) without rupture ([facility] V24) 08/27/2022 Overview (08/17/2024): PET/CT TUMOR IMAGING SKULL BASE TO MID-THIGH ? 08/26/2022 Moderate calcified and sclerosis of the aortoiliac tree with fusiform infrarenal aneurysm measuring 3.1 cm Hyponatremia 11/12/2021 CLL (chronic lymphocytic gricel kemia) ([facility] V24, [facility] V28) 01/13/2019 Overview (05/21/2024): Dr Cotton Assessment [...] outpatient management. Coronary artery disease invo lving [place] coronary artery of [place] heart without angina pectoris 12/05/2017 Assessment & [...] Linked Problems CLL (chronic lymphocytic gricel kemia) ([facility] V24, [facility] V28) Treatment Medications No medications scheduled. Past Plans No past plan information found. Radiation Treatments * No radiation treatments are documented for this patient in [facility]. Treatments may have been administered in another system. Lifetime Dose Tracking * Chemical Lifetime Dose Automatic Entry Manual Entr y Fluoro Time 0.16 minutes 0.16 minutes 0 minutes Air Kerma 15.42 mGy 15.42 mGy 0 mGy
--- OUTSIDE RECORDS SUMMARY | 2025-01-09 12:00 | XMS_ITS | Encounter Summary ---
Author Organization [facility] Address [address] [place] [address] Care Team Providers Care Respiratory Care Instructor Name Role Phone Giovanna Thapa MD Unavailable Suzanna Mcgill DO Primary Care Provider [phone] Reason for Visit * Reason Comments Medication Refill Encounter Details Date Type Department Care Team (Late st Contact Info) Description 07/05/2023 Refill [facility] Vascular [address] [address] Mary Bella, DOCTOR NATUROPATHIC [address] [place], [place] [id number] Medication Refill Social History Tobacco Use Types [...] Description 02/24/2025 10:00 AM EDT Office Visit [address] [address] Giovanna Thapa MD [address] [place] [address] documented as of this encounter Visit Diagnoses Diagnosis Hypertension, unspecified type documented in this encounter Care Teams Respiratory Care Instructor Relationship Specialty Start Date End Date Suzanna Mcgill DO [address] [place] [address] PCP - General Family Medicine 03/27/23 Giovanna Thapa MD [address] [place] [address] Primary Grid Trimmer Cardiovascular Disease 08/29/21 documented as of this encounter
--- OUTSIDE RECORDS SUMMARY | 2025-01-09 12:00 | XMS_ITS ---
Author Organization [facility] Address [address] [place] [address] Care Team Providers Care Transmission Inspector Name Role Phone Nano Harpreetvidhi Primary Care Provider [phone] Active Problems Problem Noted Date Diagnosed Date [...] veins 11/16/2015 Coronary artery disease invo lving [place] coronary artery of [place] heart without angina pectoris 09/13/2015 Overview (08/26/2022): Stenting x 2 in [address] Thapa in [place], [place] Stenting x 2 in [address]. Thapa [place] Hyperlipidemia 09/13/2015 Primary hypertension 09/13/2015 Current Treatment and Therapy Plans No current plan information found. Past Treatment and Therapy Plans No past plan information found. Lifetime Dose Tracking * Chemical Lifetime Dose Automatic Entry Manual Entr y TotalDLP 859 mGy 859 mGy 0 mGy [id number] 7.5 mSv 7.5 mSv 0 mSv CTDIvol Max 32.2 mGy 32.2 mGy 0 mGy CTDIvol Min 32.2 mGy 32.2 mGy 0 mGy
--- OUTSIDE RECORDS SUMMARY | 2025-01-09 12:00 | XMS_ITS | Encounter Summary ---
Author Organization [facility] Address [address] [place] [address] Care Team Providers Care Wardsperson Name Role Phone Ananda Whiting MD Primary Care Provider [phone] Encounter Details Date Type Department Care Team Description 05/07/2023 Social Work [facility] Oncology Services [address] [place] [address] Cleo Campbell, [facility] Social History Tobacco Use Types Packs/Day Years [...] on filedocumented in this encounter Care Teams Wardsperson Relationship Specialty Start Date End Date Ananda Whiting MD [address] [place] [address] [address] [place] [address] PCP - General Geriatric Medicine 06/03/24 documented as of this encounter
--- OUTSIDE RECORDS SUMMARY | 2025-01-09 12:00 | XMS_ITS | Encounter Summary ---
Author Organization [facility] Address [address] [place] [address] Care Team Providers Care Vendette Name Role Phone Suzanna Mcgill Primary Care Provider [phone] Encounter Details Date Type Department Care Team (Late st Contact Info) Description 09/25/2023 Secure Outcomeshart Message [facility] [address] [place] [address] Mychart, Generic Provider [address] [place], [place] [id number] Occuplastics referral Social History Tobacco Use Types [...] on filedocumented in this encounter Care Teams Vendette Relationship Specialty Start Date End Date Suzanna Mcgill [address] [place] [address] PCP - General 08/14/22 documented as of this encounter
--- OUTSIDE RECORDS SUMMARY | 2025-01-09 12:00 | XMS_ITS | Referral Summary ---
Author Organization [facility] Address [address] [place] [address] Care Team Providers Care Digital Producer Name Role Phone Suzanna Mcgill Primary Care Provider [phone] Allergies Active Allergy Reactions Criticality Noted Date [...] tea prior to administrati on. Active mv-mn/C/glutamin /lysin/edgn876 ([place], ASCORBATE SODIUM, ORAL) Take by mouth. [...] veins 11/16/2015 Coronary artery disease invo lving [place] coronary artery of [place] heart without angina pectoris 09/13/2015 Overview (08/26/2022): Stenting x 2 in [address] [place] Stenting x 2 in 2004. [place] [place] Th[place] Hyperlipidemia 09/13/2015 Primary hypertension 09/13/2015 Immunizations [...] on file Medical Devices Implanted Type Area Director Style Device Identifier Shelf Expiration Date Model / Serial / Lot Drill Bit Twist [employer] Standard Stainless Steel Sterile [id number] - [id number] Implanted:Qty: 1 on 09/03/2022 by Ashu Mason MD at [facility] [employer] [id number] / / Procedures * Due to [facility] law, this organization might not be sharing negative HIV tests. Procedure Name Priority Date/Time Associated Diagnosis Comments BASIC METABOLIC PANEL Routine 03/01/2023 3:38 AM EDT from Last 3 Months or Most Recently Relevant to Health Maintenance Results * Due to [place] [employer] law, this organization might not be sharing negative HIV tests. * (ABNORMAL) Basic Metabolic Panel (03/01/2023 3:38 AM EDT) NA 132(L) 135 - 145 mmol/L 03/01/2023 4:37 AM EDT [facility] K 4.5 3.5 - 5.3 mmol/L 03/01/2023 4:37 AM EDT [facility] Cl 99 97 - 110 mmol/L 03/01/2023 4:37 AM EDT [facility] CO2 26 24 - 32 mmol/L 03/01/2023 4:37 AM EDT [facility] BUN 9 7 - 23 mg/dL 03/01/2023 4:37 AM EDT [facility] Creatinine 0.60 0.60 - 1.30 mg/dL 03/01/2023 4:37 AM EDT [facility] Glucose 149(H) 70 - 99 mg/dL 03/01/2023 4:37 AM EDT [facility] Calcium 8.7 8.7 - 10.7 mg/dL 03/01/2023 4:37 AM EDT [facility] Anion Gap 7 5 - 15 03/01/2023 4:37 AM EDT [facility] eGFR >90 >=60 mL/min/1. 73m2 03/01/2023 4:37 AM EDT [facility] Comment:The estimated glomer ular [...] MD LAB BLOOD ORDERABLES Final R esult [facility] [address] [place] [address], [place] from Last 3 Months or Most Recently Relevant to Health Maintenance Insurance [facility] [employer] A[employer] Advance Directives Documents on File Type Date Recorded Patient Servicer [facility] Care Proxy 08/26/2022 12:51 PM PROXY [...] 6:07 AM 09/03/2022 4:22 PM Care Teams Digital Producer Relationship Specialty Start Date End Date Suzanna Mcgill [address] [place] [address] PCP - General 08/14/22
[2025-01-09] MEDS: ondansetron HCL 4 MG/2 ML VIAL IVPUSH (12:30)
[2025-01-09] MEDS: Morphine Sulfate 4 MG/ML CARTRIDGE IVPUSH ×2 (12:30→14:50)
--- NOTE | 2025-01-09 12:30 | PC.NURSE ---
pt is alert and oriented, skin wpd, respirations even and unlabored, pt reports for the last 4 days having all over abd pain and constipation x5 days, pt reports chronic issues with constipation, denies nausea and vomiting, bowel sounds in all 4 quadrants, abd soft but slightly tender on the left lower
[2025-01-09] MEDS: iohexoL 350 MG/ML 100 ML INFUS..BTL IV (15:48)
[2025-01-09] MEDS: Diatrizoate Meglumine, Sodium 30 ML SOLUTION PO (15:49)
--- NOTE | 2025-01-09 17:05 | PM.HPGS ---
History of Present Illness History of Present Illness Date of Service: 01/09/25 Chief complaint: relapse Narrative: 74 yo male with history of CLL, SCC face s/p exciision, basal cell carcinoma, right hip fx s/p arthroplasty complicated by infection in June requiring hardware removal, abx spacer and replacement of hardware in September, recent admission to [facility] 12/20-12/23 for sigmoid volvulus treated with flexible sigmoidoscopy who presents to the ER for evaluation of severe abdominal pains along with constipation x3 days. He states the pain is severe, comes in waves and lasts about 2 minutes. It recurs frequently and has been getting worse over the last 24 hours. No N/V. He last had a BM and flatus 3 days ago. The patient was here 2 weeks ago with a similar situation and had the sigmoid volvulus do torsed by GI and postprocedure general surgery Dr. Sterling had several conversations with him about undergoing exploration and the resection. Patient refused to have the procedure which would entail temporizing colostomy. He decided to take his chances for recurrence and was warned about a high chance of recurrence on discharge. He comes in today with similar situation and symptoms as before and CT scan of his abdomen and pelvis are consistent with recurrence at this volvulus with backup dilated colon as well as stool in the proximal colon. Patient is complaining of significant pain which comes in waves and then improves. This point he understands in his accepting of surgery and the colostomy Review of Systems Review of Systems: Yes all other systems are reviewed and are negative PMFSH Past Medical History Medical History (Updated 01/09/25 @ 17:10 by TRISTON Barth) Coronary artery disease Chronic anemia Basal cell carcinoma Squamous cell carcinoma of face CLL (chronic lymphocytic leukemia) HLD (hyperlipidemia) HTN (hypertension) Surgical History Surgical History H/O neck surgery H/O heart artery stent History of total right hip replacement History of total left hip replacement History of facial surgery Social History Social History Household Members: Significant Other Housing: Condominium Are you a primary health careers instructor to a significant other at home: No Do you presently have visiting nurse or other home services: Yes (PT) Patient Tobacco Use Status: Never used Tobacco Smoked in Last 30 Days: No Use of substances other than those prescribed or required for medical reasons: Yes Substance Use Type: Other Advance Directives: No Advance Directives Information Provided: Yes service: No Meds Allergies Allergy/AdvReac Type Severity Reaction Status Date / Time No Known Allergies Allergy Verified 01/09/25 09:37 Home Medications ?Medication ?Instructions ?Recorded ?Confirmed ?Last Taken ?Type amlodipine 10 mg tablet 10 mg PO DAILY 12/20/24 12/20/24 12/19/24 History atorvastatin 40 mg tablet 40 mg PO DAILY 12/20/24 12/20/24 12/19/24 History carvedilol 6.25 mg tablet 6.25 mg PO BID 12/20/24 12/20/24 12/19/24 History cefadroxil 500 mg capsule 500 mg PO BID 12/20/24 12/20/24 12/19/24 History losartan 100 mg tablet 100 mg PO DAILY 12/20/24 12/20/24 12/19/24 History methocarbamol 750 mg tablet 750 mg PO Q8H PRN muscle spasm 12/20/24 12/20/24 Unknown History oxycodone 5 mg tablet 5 mg PO Q6-8H PRN severe pain 12/20/24 12/20/24 Unknown History Physical Exam Vital Signs: Vital Signs: Last Vital Signs Temp 98.1 F 01/09/25 16:23 Pulse 65 01/09/25 16:23 Resp 18 01/09/25 16:23 BP 166/92 H 01/09/25 16:23 Pulse Ox 99 01/09/25 16:23 O2 Del Method Room Air 01/09/25 16:23 BMI result Body Mass Index 29.0 Const: General: cooperative, healthy appearing and no acute distress Orientation/consciousness: patient oriented x3 HEENT: Head: Yes normal to inspection and Yes No palpable skull fracture present Neck: Neck: Yes normal visual inspection GI: Other: Abdomen is softly distended tender in the left lower quadrant mild guarding no. Hypoactive bowel sounds Skin: Other: Nonicteric Neuro: General: patient oriented x3 and Normal light touch and pain sensation Cranial nerves: Yes CN's II-XII intact bilaterally Results Results Labs: Short CBC 01/09/25 Range/Units 09:48 WBC 11.9 H (4.8-10.8) X10*3/uL Hgb 11.0 L (14.0-18.0) g/dl Hct 32.0 L (42.0-52.0) % Plt Count 107 L (160-400) X10*3/uL BMP 01/09/25 09:48 Sodium 135 Potassium 3.1 L Chloride 99 Carbon Dioxide 24 BUN 15 Creatinine 0.78 Calcium 9.1 D Liver Function 01/09/25 Range/Units 09:48 Total Bilirubin 0.6 (0.0-1.0) mg/dL AST 37 (5-37) U/L ALT 20 (0-40) U/L Alkaline Phosphatase 131 H (39-117) U/L Albumin 4.5 (3.5-5.0) g/dL Abdomen CT scan report/results: report reviewed and image reviewed CT scan - pelvis: report reviewed Additional studies: [address] [address] [address] Scan Report Signed with Addenda Patient: Fransisco Garzon MR#: [id number] : 1950 Acct:[id number] Age/Sex: 74 / M ADM Date: 01/09/25 Loc: .ED Attending Dr: Ordering Physician: Aruna Pablo Date of Service: 01/09/25 Procedure(s): CT abdomen pelvis w IV con Accession Number(s): [id number] cc: Aruna Pablo; Aminata Moreno MD~ Report Number: [id number]: Total DLP = 715.00 mGy-cm ADDENDUMThis document has been electronically signed by: Jose Angel Rush MD on 01/09/2025 16:51:45 ADDENDUM: This report was discussed with TRISTON Mejia on January 09, 2025 16:54:00 EDT. This document has been electronically signed by: Leela Dennis on 01/09/2025 16:55:16 Addendum Dictated By: Jose Angel Rush MD Addendum Signed By: <Electronically signed by Jose Angel Rush MD in [place]> 01/09/251654 Addendum Cosigned By: DD/ /31/1650 TD/TT: 01/09/2512/31/1654 CLINICAL HISTORY: distention, pain, hx sigmoid volvulus CT abdomen and pelvis with contrast Comparison: CT/AK/SR - CT ABDOMEN PELVIS W IV CON - 12/20/24 15:[address]/AK - CT ABDOMEN PELVIS W IV CON - 12/20/24 15:15 EDT Findings: Examination is limited by bilateral hip arthroplasty artifact. No consolidation or effusion. The gallbladder and solid organs are within normal limits. No renal stones. Sigmoid volvulus is present as before associated with moderate to severe dilatation of the more proximal large bowel as well as large amount of stool content. Appendix is not seen. The bones are intact. Bilateral hip arthroplasty. 60 mm peripherally enhancing fluid collection at the lateral aspect of the right iliac wing. IMPRESSION: 1. Sigmoid volvulus with associated large bowel obstruction. 2. Fluid collection adjacent to the right pelvis, possibly abscess. 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 He has been in here about 2 weeks ago and we discovered this volvulus but he refused to have surgery at that point in time. Now with a recurrence would recommend NPO IV fluid hydration to the OR for exploration and resection and colostomy creation. He does not have a bowel prep so can not do an anastomosis but he is very eager to have this just be a temporizing colostomy. Preoperative clearance was obtained from the medical team in his last admission in the much it has changed from that perspective. We will plan on admitting him NPO IV fluid hydration into the OR. Risks and benefits were discussed with the patient including but not limited to bleeding infection bowel injury and despite this he wishes to proceed Quality Stroke Does the patient have a stroke diagnosis?: No VTE Prior VTE?: No VTE Risk Level:: Surgical - low VTE Device Contraindication: N/A - Device Ordered VTE Drug Contraindication: Treatment Not Indicated Procedures Date of Service Date of Service: 01/09/25
[2025-01-09] MEDS: HYDROmorphone HCl 0.5 MG/0.5 ML SYRINGE IVPUSH (17:20)
--- NOTE | 2025-01-09 18:12 | PC.NURSE ---
report given to donna romreo at surgery
--- NOTE | 2025-01-09 18:31 | PHA.MEDREC ---
Addendum entered by Raquel Mccollum RPh 01/09/25 18:39: [facility] reviewed Original Note: Pharmacy Consult ? Medication Reconciliation Pharmacy has completed the medication reconciliation. Spoke to pt to confirm meds.
[2025-01-09] MEDS: cefoTEtan disodium 2 GM VIAL IVPUSH (18:58)
--- NOTE | 2025-01-09 22:15 | W.PM.OPN ---
Operative Note Operative Note Date of Service: 01/09/25 Narrative: PREOP DIAGNOSIS-- sigmoid volvulus Postop diagnosis--sigmoid volvulus Procedure done--left colectomy with end-colostomy creation Surgeon--Chriss Anesthesia--general endotracheal tube anesthesia The patient is a 74-year-old male who presented to the hospital about 2 weeks ago with a sigmoid volvulus that responded to endoscopic detorsion with GI and then the plan was to undergo colectomy with probable colostomy creation. The patient however did not want to carry this out and decided to take his chances with another recurrence. He left with a bowel regimen but unfortunately over the last 2 3 days he was having more issues with abdominal bloating distention not having stools or passing gas and he felt like it was volvulized again. As a result he came into the emergency room and imaging confirmed this. Discussion with the patient and GI was had and it was determined to just go to a surgical procedure to torse and resect today. Patient understands and agrees with the above plan. He does not want to undergo this back and forth issues anymore- Findings- Twisted volvulized sigmoid colon extremely distended up to diameter of about 9 cm and the entire colon was distended including the cecum and transverse colon. All the colon however looked viable. No masses were noted. Procedure-- Patient was brought to the operative room under Anesthesia guidance was intubated. He had compression stockings placed before induction received preoperative antibiotics in his abdomen was prepped and draped in standard surgical fashion. A midline incision was created little above and below the umbilicus which was eventually extended little more superiorly when we entered into the peritoneal cavity and there was significant distention of the entire colon. We are able to isolate the sigmoid colon and resolve the volvulus but with further examination the entire colon was very distended and the cecum was also very distended but looks viable. The small bowel was not significantly distended. An area in the descending colon was identified for resection and the DARYL stapler fired across here. We then mobilized the lateral attachments of the descending colon and sigmoid colon and use the LigaSure to come across the mesentery. Everything was very oozy with his tissue despite using cautery and the LigaSure. We eventually got to an area in the distal sigmoid close to the upper rectum which was still distended but looked improved and the DARYL stapler was fired across here. The mesentery was attached still and this was taken down with the LigaSure and this sigmoid colon and descending colon was sent off as the 1st specimen with suture marking the distal area. The small bowel was run and this looked fine and the colon once again examined. The distal colon was reexamined and it looked viable but in attempting to bring it up for a colostomy the transverse colon was still extremely redundant and distended and there was a concern that it maybe somewhat atonic and that it could possibly create another volvulus. As a result we decided to continue with the resection a little more proximally to somewhere along the distal 3rd of the transverse colon and the DARYL stapler was fired across here. Once again the LigaSure was used to come across the mesentery. This still provided a significant length of colon which was able to be brought down to the left side to create a colostomy without any tension and left LEs redundant floppy colon throughout the abdominal cavity. Marva's were used and the abdominal wall was dissected creating a defect using the cautery and tying off the epigastric vessels to pull through the distal colon or the colostomy creation. Once again this was actually the transverse colon in the left midabdomen. Attention was focused to the abdominal wall with the fatty tissue was just very oozy and cautery was used in several areas. The distal rectal sigmoid area stump was oversewn as the staple line here was also oozing and this was carried out with 4-0 Vicryl. The mesentery of the left colon was also oozing and several areas were suture ligated with 2-0 and 3-0 Vicryl and tied to try to get better hemostasis. The intra-abdominal area was suctioned and irrigated and finally we are little more satisfied with the hemostasis. The midline abdomen was then closed with running 0 PDS loop superiorly and inferiorly and tied in the middle. [place] were then used to approximate the skin edges. Attention was then focused to the colon for the colostomy in the staple and was opened up. The abdominal anterior fascia was tightened up around the colon little bit with 2-0 Polysorb suture and then using 4-0 Polysorb the ostomy was matured. At the end there was a little bit of a hematoma in the mesentery here and with a little compression this was improved. The colostomy bag was then fixed to the colostomy site and dressings applied. At the end of the case all sponge instrument needle counts were correct estimated blood loss was about 150 cc specimens sent was into the left colon consisting of the sigmoid colon then the distal transverse colon descending colon. Patient was extubated returned stable to recovery room with Alegria catheter in place
--- NOTE | 2025-01-09 23:22 | P.CONHOSP_ITS ---
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 He was recently here 12/20-12/23 for sigmoid volvulus and underwent decompression of sigmoid volvulus in the OR with placement of rectal tube. He was seen by General surgery but ultimately declined surgical intervention at that time but returned back to the ED again today due to severe pain and constipation. Hospitalist consultation placed for medication management after surgery. The patient reports he is having 8/10 sharp pain in the abdomen currently, no nausea or vomiting. No numbness or tingling. He is alert and oriented and has no additional concerns. He denies chest pain or shortness of breath. Review of Systems 2 Constitutional: Constitutional: Denies chills, Denies fatigue, Denies fever(s) and Denies headache(s) Eyes: Eyes: Denies change in vision and Denies photophobia ENT: Denies headache(s), Denies nasal congestion and Denies sore throat Cardiovascular: Cardiovascular: Denies chest pain, Denies syncope, Denies rapid heart rate, Denies leg edema and Denies dyspnea Respiratory: Respiratory: Denies chest congestion, Denies cough, Denies dyspnea and Denies wheezing Gastrointestinal: Gastrointestinal: Reports as per HPI Genitourinary: Genitourinary: Denies dysuria and Denies urinary urgency Musculoskeletal: Musculoskeletal: Denies myalgias Integumentary/Breasts: Skin/Breast: Denies rash Neurologic: Denies confusion, Denies syncope and Denies headache(s) Psychiatric: Psychiatric: Denies confusion Endocrine: Endocrine: Denies fatigue Hematologic/Lymphatic: Hematologic/Lymphatic: Denies easy bleeding and Denies easy bruising Allergic/Immunologic: Allergic/Immunologic: Denies wheezing [facility] Medical History Coronary artery disease Chronic anemia Basal cell carcinoma Squamous cell carcinoma of face CLL (chronic lymphocytic leukemia) HLD (hyperlipidemia) HTN (hypertension) Functional capacity: independent ambulation Surgical History H/O neck surgery H/O heart artery stent History of total right hip replacement History of total left hip replacement History of facial surgery Social History Household Members: Significant Other Housing: [facility] Are you a primary ambulatory care coordinator to a significant other at home: No Do you presently have visiting nurse or other home services: Yes (PT) Patient Tobacco Use Status: Never used Tobacco Smoked in Last 30 Days: No Use of substances other than those prescribed or required for medical reasons: Yes Substance Use Type: Other Advance Directives: No Advance Directives Information Provided: Yes service: No Narrative: No smoking, alcohol or drug use Meds Allergies Allergy/AdvReac Type Severity Reaction Status Date / Time No Known Allergies Allergy Verified 01/09/25 09:37 Active Medications: Current Medications Acetaminophen (Acetaminophen 325 Mg Tablet) 650 mg PO Q6H PRN PRN Reason: Pain, Mild 1-3,fever,headache Fentanyl (Fentanyl Citrate/Pf 100 Mcg/2 Ml Vial) 25 mcg IVPUSH Q5M PRN PRN Reason: Pain, Moderate to Severe (Pain Scale 4-10) Stop: 01/10/25 01:09 Sodium Chloride (Ns) 1,000 mls @ 100 mls/hr IVCONT .Q10H [facility] Morphine Sulfate (Morphine Sulfate 4 Mg/Ml Cartridge) 4 mg IVPUSH Q4H PRN; Protocol PRN Reason: Pain, Severe (Pain Scale 7-10) Naloxone HCl (Naloxone Hcl 0.4 Mg/Ml Vial) 0.04 mg IVPUSH Q5M PRN PRN Reason: Excessive sedation or RR < 8 Ondansetron HCl (Ondansetron Hcl 4 Mg/2 Ml Vial) 4 mg IVPUSH ONCE PRN PRN Reason: Nausea and Vomiting Stop: 01/10/25 01:09 Ondansetron HCl (Ondansetron Hcl 4 Mg/2 Ml Vial) 4 mg IVPUSH Q8H PRN PRN Reason: Nausea and Vomiting Oxycodone HCl (Oxycodone Hcl Immed Release 5 Mg Tablet) 5 mg PO ONCE PRN PRN Reason: Pain, Moderate(Pain Scale 4-6) if no IV Access Stop: 01/10/25 01:09 Pantoprazole Sodium (Pantoprazole Sodium 40 Mg/10 Ml Vial) 40 mg IVPUSH DAILY [facility] Sodium Chloride (0.9 % Sodium Chloride Flush 3 Ml Syringe) 3 ml IVFLUSH QSHIFT [facility] Sodium Chloride (0.9 % Sodium Chloride Flush 3 Ml Syringe) 3 ml IVFLUSH QSHIFT [facility] Home Medications ?Medication ?Instructions ?Recorded ?Confirmed ?Last Taken ?Type amlodipine 10 mg tablet 10 mg PO DAILY 12/20/24 01/09/25 01/08/25 History atorvastatin 40 mg tablet 40 mg PO DAILY 12/20/24 01/09/25 01/08/25 History carvedilol 6.25 mg tablet 6.25 mg PO BID 12/20/24 01/09/25 01/08/25 History cefadroxil 500 mg capsule 500 mg PO BID 12/20/24 01/09/25 01/08/25 History losartan 100 mg tablet 100 mg PO DAILY 12/20/24 01/09/25 01/08/25 History methocarbamol 750 mg tablet 750 mg PO Q8H PRN muscle spasm 12/20/24 01/09/25 Unknown History oxycodone 5 mg tablet 5 mg PO Q8H PRN severe pain 12/20/24 01/09/25 Unknown History acetaminophen 325 mg tablet 650 mg PO Q6H PRN Pain 01/09/25 01/09/25 Unknown History (Tylenol) bisacodyl 5 mg tablet,delayed 5 mg PO BEDTIME PRN Constipation 01/09/25 01/09/25 Unknown History release (Dulcolax (bisacodyl)) cetirizine 10 mg tablet 10 mg PO BEDTIME PRN Allergy 01/09/25 01/09/25 Unknown History Symptoms cyanocobalamin (vitamin B-12) 1,000 mcg PO DAILY 01/09/25 01/09/25 01/08/25 History 1,000 mcg tablet ferrous sulfate 325 mg (65 mg 325 mg PO DAILY 01/09/25 01/09/25 01/08/25 History iron) tablet (iron) fexofenadine 180 mg tablet 180 mg PO DAILY 01/09/25 01/09/25 01/08/25 History multivitamin 1 tab PO DAILY 01/09/25 01/09/25 01/08/25 History sennosides 8.6 mg tablet (senna) 8.6 mg PO DAILY 01/09/25 01/09/25 01/08/25 History Physical Exam 2 Vital Signs and Narrative: Vital Signs: Last Vital Signs Temp 96.9 F 01/09/25 22:38 Pulse 61 01/09/25 22:53 Resp 15 01/09/25 22:53 BP 150/85 H 01/09/25 22:53 Pulse Ox 97 01/09/25 22:53 O2 Del Method Room Air 01/09/25 22:53 BMI result Body Mass Index 29.0 General: AOx3, no acute distress Resp: CTA bilaterally CVS: S1, S2, RRR GI: hypoactive, not palpated due to pain, no distention. small bright red blood in ostomy bag Skin: Warm, dry Neuro: Cranial nerves II-XII grossly intact bilaterally. Motor grossly intact bilaterally Extremities: No LE edema Psych: Appropriate affect Const: General: No confusion Orientation/consciousness: No confusion Eyes: Direct Ophthalmoscopy: No photophobia Neuro: General: No confusion Results Labs 01/09/25 09:48 01/09/25 09:48 Labs: Laboratory Results - last 24 hr 01/09/25 09:48 MCV 96.1 MCH 33.0 MCHC 34.4 RDW 16.8 H Plt Count 107 L MPV 8.4 L Immature Gran % (Auto) 0.3 Neut % (Auto) 21.1 L Lymph % (Auto) 76.6 H [place] % (Auto) 1.8 L Eos % (Auto) 0.0 Baso % (Auto) 0.2 Lymph # (Auto) 9.1 H [place] # (Auto) 0.2 Eos # (Auto) 0.0 Baso # (Auto) 0.0 Abs Immat Gran (auto) 0.04 H Absolute Neuts (auto) 2.5 Absolute Nucleated RBC 0.000 Nucleated RBC % (auto) 0.0 Smear Tech's Comments VERIFIED Anion Gap 15 Estim Creat Clear Calc 83.3 Estimated GFR > 60 Random Glucose 149 H Calcium 9.1 D Magnesium 1.8 Total Bilirubin 0.6 AST 37 ALT 20 Alkaline Phosphatase 131 H Total Protein 7.3 Albumin 4.5 Lipase 16 Assessment and Plan (1) S/P left colectomy: Status: Acute (2) S/P colostomy: Status: Acute (3) Sigmoid volvulus: Status: Acute Plan Patient is a 74-year-old male with a past medical history significant for CAD, HTN, HLD, chronic anemia, CLL and 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 S/p left colectomy and colostomy secondary to sigmoid volvulus - POD 0 - small bright red blood in ostomy bag, continue to monitor - NPO - hold PO meds per surgery - plan per surgery CAD (hx of stenting)/HLD - resume carvedilol and statin when appropriate per surgery HTN - resume amlodipine and losartan when appripriate per surgery chronic anemia - monitor CBC Thank you for allowing me to participate in the pt's care. Will follow lytes and blood pressures. Please contact the medical team if any questions or concerns.
[2025-01-09] MEDS: 0.9 % Sodium Chloride Flush 3 ML SYRINGE IVFLUSH (23:23)
[2025-01-10] MEDS: Potassium Chloride/H20 10 MEQ/100 ML PIGGYBACK 100 MEQ IV ×4 (00:17→03:30)
[2025-01-10] MEDS: 0.9 % Sodium Chloride 1,000 ML 100 ML IVCONT ×3 (00:17→18:00)
[2025-01-10] MEDS: Morphine Sulfate 4 MG/ML CARTRIDGE IVPUSH ×4 (02:22→20:14)
[2025-01-10 03:45] VITALS: BP 132/70; PULSE 68; RESP 16; TEMP 36.3; O2SAT 99
[2025-01-10 07:18] VITALS: BP 122/74; PULSE 71; RESP 19; TEMP 36.4; O2SAT 97
[2025-01-10 07:37] LABS: Basophils Percent Auto 0.1 % (0-2); Hematocrit 25.8 % (42.0-52.0); Hemoglobin 8.9 g/dl (14.0-18.0); Imm Gran Abs Auto 0.07 X10*3/uL (0.00-0.03); Imm Gran Pct Auto 0.6 % (0.0-0.4); Lymphocytes Percent Auto 71.1 % (20-40); MANUAL DIFF FLAG SCAN; Mean Corpuscular HGB Conc 34.5 g/dl (31.0-36.0); Mean Corpuscular Hemoglobin 33.2 pg (27.0-33.0); Mean Corpuscular Volume 96.3 fL (80.0-98.0); Monocytes Absolute Auto 0.2 X10*3/uL (0.1-1.2); Monocytes Percent Auto 1.9 % (2-11); Neutrophils Percent Auto 26.3 % (45-73); Red Blood Count 2.68 X10*6/uL (4.60-5.80); Red Cell Distribution Width 16.8 % (11.0-16.0); SCAN SMEAR FLAG 1; White Blood Count 11.4 X10*3/uL (4.8-10.8)
[2025-01-10 07:40] LABS: Anion Gap 12 (12-20); Blood Urea Nitrogen 11 mg/dL (9-16); Calcium 7.9 mg/dL (8.4-10.2); Carbon Dioxide 26 mmol/L (22-29); Chloride 99 mmol/L (96-108); Creatinine Clr Calc Pharmacy 90.4; Estimated Glomerular Filt Rate > 60; Glucose Random 121 mg/dL (60-115); Magnesium 1.7 mg/dL (1.6-2.6); Potassium 3.4 mmol/L (3.3-5.1); Sodium 134 mmol/L (135-145)
[2025-01-10 07:41] LABS: Lymphocytes Absolute Auto 8.1 X10*3/uL (1.2-4.9); Platelet Count 95 X10*3/uL (160-400)
--- NOTE | 2025-01-10 08:22 | PM.CNOR ---
History of Present Illness [facility] Consult date: 01/10/25 Chief complaint: Sigmoid Volvulus Narrative: Mr. Garzon is a 74-year-old male with a past medical history significant for CAD, HTN, HLD, chronic anemia, CLL and squamous cell carcinoma on the face status post excision. Patient presented to the emergency department on 01/09/2025 for evaluation of abdominal pain. He was found to have a volvulus. Patient underwent a colectomy with end colostomy creation with Dr. Banerjee on 01/09/2025. While in the emergency department CT of the abdomen was obtained and there was a concern for a fluid collection adjacent to the right pelvis possibly indicative of an abscess. Patient had a right total hip arthroplasty performed 13 years ago. In May of 2024 he started to develop pain. He followed up with his orthopedic surgeon Dr. Carrasquillo and [place]. 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 He underwent removal of total hip arthroplasty with an antibiotic spacer in May. Patient reports that he had a revision surgery with Dr. Carrasquillo on 09/14/2024. Patient reports no hip pain or groin pain up until this most recent incident of abdominal pain. He has been ambulating without the use of any assistive devices and reports no pain with ambulation. Review of Systems Review of Systems: Yes all other systems are reviewed and are negative PMF Past Medical History Medical History Coronary artery disease Chronic anemia Basal cell carcinoma Squamous cell carcinoma of face CLL (chronic lymphocytic leukemia) HLD (hyperlipidemia) HTN (hypertension) Surgical History Surgical History H/O neck surgery H/O heart artery stent History of total right hip replacement History of total left hip replacement History of facial surgery Social History Social History Household Members: Significant Other Housing: Condominium Are you a primary day care assistant to a significant other at home: No Do you presently have visiting nurse or other home services: No Patient Tobacco Use Status: Never used Tobacco Smoked in Last 30 Days: No Use of substances other than those prescribed or required for medical reasons: Yes Substance Use Type: Marijuana Substance Use Frequency: Occasionally Currently Displaying Signs/Symptoms of Drug Intoxication Withdrawal: No Do you feel safe in your current relationship?: Yes Advance Directives: No Advance Directives Information Provided: Yes Recently lost weight without trying: Yes How much weight loss: Unsure Eating poorly because of decreased appetite: Yes Nutrition screen score: 5 Nutrition Risks: Poor intake 0-25% >4 days Poor oral hygiene: No service: No Meds Allergies Allergy/AdvReac Type Severity Reaction Status Date / Time No Known Allergies Allergy Verified 01/09/25 09:37 Active Medications: Current Medications Acetaminophen (Acetaminophen 325 Mg Tablet) 650 mg PO Q6H PRN PRN Reason: Pain, Mild 1-3,fever,headache Sodium Chloride (Ns) 1,000 mls @ 100 mls/hr IVCONT .Q10H [facility] Last Admin: 01/10/25 00:17 Dose: 100 mls/hr Morphine Sulfate (Morphine Sulfate 4 Mg/Ml Cartridge) 4 mg IVPUSH Q4H PRN; Protocol PRN Reason: Pain, Severe (Pain Scale 7-10) Last Admin: 01/10/25 07:28 Dose: 4 mg Naloxone HCl (Naloxone Hcl 0.4 Mg/Ml Vial) 0.04 mg IVPUSH Q5M PRN PRN Reason: Excessive sedation or RR < 8 Ondansetron HCl (Ondansetron Hcl 4 Mg/2 Ml Vial) 4 mg IVPUSH Q8H PRN PRN Reason: Nausea and Vomiting Pantoprazole Sodium (Pantoprazole Sodium 40 Mg/10 Ml Vial) 40 mg IVPUSH DAILY [facility] Sodium Chloride (0.9 % Sodium Chloride Flush 3 Ml Syringe) 3 ml IVFLUSH QSHIFT [facility] Last Admin: 01/10/25 07:05 Dose: Not Given Sodium Chloride (0.9 % Sodium Chloride Flush 3 Ml Syringe) 3 ml IVFLUSH QSHIFT [facility] Last Admin: 01/10/25 07:05 Dose: Not Given Home Medications ?Medication ?Instructions ?Recorded ?Confirmed ?Last Taken ?Type amlodipine 10 mg tablet 10 mg PO DAILY 12/20/24 01/09/25 01/08/25 History atorvastatin 40 mg tablet 40 mg PO DAILY 12/20/24 01/09/25 01/08/25 History carvedilol 6.25 mg tablet 6.25 mg PO BID 12/20/24 01/09/25 01/08/25 History cefadroxil 500 mg capsule 500 mg PO BID 12/20/24 01/09/25 01/08/25 History losartan 100 mg tablet 100 mg PO DAILY 12/20/24 01/09/25 01/08/25 History methocarbamol 750 mg tablet 750 mg PO Q8H PRN muscle spasm 12/20/24 01/09/25 Unknown History oxycodone 5 mg tablet 5 mg PO Q8H PRN severe pain 12/20/24 01/09/25 Unknown History acetaminophen 325 mg tablet 650 mg PO Q6H PRN Pain 01/09/25 01/09/25 Unknown History (Tylenol) bisacodyl 5 mg tablet,delayed 5 mg PO BEDTIME PRN Constipation 01/09/25 01/09/25 Unknown History release (Dulcolax (bisacodyl)) cetirizine 10 mg tablet 10 mg PO BEDTIME PRN Allergy 01/09/25 01/09/25 Unknown History Symptoms cyanocobalamin (vitamin B-12) 1,000 mcg PO DAILY 01/09/25 01/09/25 01/08/25 History 1,000 mcg tablet ferrous sulfate 325 mg (65 mg 325 mg PO DAILY 01/09/25 01/09/25 01/08/25 History iron) tablet (iron) fexofenadine 180 mg tablet 180 mg PO DAILY 01/09/25 01/09/25 01/08/25 History multivitamin 1 tab PO DAILY 01/09/25 01/09/25 01/08/25 History sennosides 8.6 mg tablet (senna) 8.6 mg PO DAILY 01/09/25 01/09/25 01/08/25 History Physical Exam Vital Signs: Vital Signs: Last Vital Signs Temp 97.6 F 01/10/25 07:18 Pulse 71 01/10/25 07:18 Resp 19 01/10/25 07:18 BP 122/74 01/10/25 07:18 Pulse Ox 97 01/10/25 07:18 O2 Del Method Room Air 01/10/25 07:18 BMI result Body Mass Index 30.0 Const: General: cooperative, healthy appearing and no acute distress Resp: Effort & Inspection: normal respiratory effort and able to speak in complete sentences Extrem: Other: Right lower extremity able to actively flex and extend without pain. Able to dorsiflex and plantar flex. NVI. Results Labs 01/10/25 06:43 01/10/25 06:43 Labs: Abnormal lab results 01/09/25 01/10/25 Range/Units 09:48 06:43 WBC 11.9 H 11.4 H (4.8-10.8) X10*3/uL RBC 3.33 L 2.68 L (4.60-5.80) X10*6/uL Hgb 11.0 L 8.9 L (14.0-18.0) g/dl Hct 32.0 L 25.8 L (42.0-52.0) % MCH 33.2 H (27.0-33.0) pg RDW 16.8 H 16.8 H (11.0-16.0) % Plt Count 107 L 95 L (160-400) X10*3/uL MPV 8.4 L 9.0 L (9.4-12.4) fL Neut % (Auto) 21.1 L (45-73) % Lymph % (Auto) 76.6 H (20-40) % [place] % (Auto) 1.8 L (2-11) % Lymph # (Auto) 9.1 H (1.2-4.9) X10*3/uL Abs Immat Gran (auto) 0.04 H (0.00-0.03) X10*3/uL Sodium 134 L (135-145) mmol/L Potassium 3.1 L (3.3-5.1) mmol/L Random Glucose 149 H 121 H (60-115) mg/dL Calcium 7.9 L D (8.4-10.2) mg/dL Alkaline Phosphatase 131 H (39-117) U/L H & H 01/09/25 01/10/25 Range/Units 09:48 06:43 Hgb 11.0 L 8.9 L (14.0-18.0) g/dl Hct 32.0 L 25.8 L (42.0-52.0) % All other labs normal. Assessment and Plan (1) Pelvic fluid collection: Status: Acute (2) S/P colostomy: Status: Acute (3) S/P left colectomy: Status: Acute (4) Sigmoid volvulus: Status: Acute Plan No evidence of septic total hip arthroplasty on the right WBAT right lower extremity Follow-up with Dr. Carrasquillo out patient No additional acute orthopedic intervention needed at this time Procedures Date of Service Date of Service: 01/10/25
--- NOTE | 2025-01-10 08:36 | P.PNGS_ITS ---
Subjective Subjective Date of Service: 01/10/25 <Michele Bee PA-C - Last Filed: 01/10/25 09:36> 01/10/25 <Kulwant Sterling MD - Last Filed: 01/10/25 09:03> Patient reports: still having pain, no flatus and no bowel movement <CYDNEY Elliott Last Filed: 01/10/25 09:36> Interval history: patient expericing 5/10 pain at rest. Increased pain with ambulation. Denies flatus or BM. Remains NPO. Denies nausea or vomiting. Has not ambulated. <Michele Bee PA-C - Last Filed: 01/10/25 09:36> Physical Exam 2 Vital Signs: Vital Signs: Last Vital Signs Temp 97.6 F 01/10/25 07:18 Pulse 71 01/10/25 07:18 Resp 19 01/10/25 07:18 BP 122/74 01/10/25 07:18 Pulse Ox 97 01/10/25 07:18 O2 Del Method Room Air 01/10/25 07:18 BMI result Body Mass Index 30.0 <CYDNEY Elliott Last Filed: 01/10/25 09:36> Const: General: no acute distress <CYDNEY Elliott Last Filed: 01/10/25 09:36> Orientation/consciousness: patient oriented x3 <CYDNEY Elliott Last Filed: 01/10/25 09:36> Resp: Effort & Inspection: normal respiratory effort <CYDNEY Elliott Last Filed: 01/10/25 09:36> GI: Other: ostomy present, site appears dusky, small amoutns of sanguenous fluid present. incision site dressings intact. <Michele Bee PA-C - Last Filed: 01/10/25 09:36> Inspection: No distended <CYDNEY Elliott Last Filed: 01/10/25 09:36> Palpation (GI): Soft to palpation, Tenderness to palpation present (GI) (generalized pain to palpation), no guarding and not rigid <CYDNEY Elliott Last Filed: 01/10/25 09:36> : Other: soares present <CYDNEY Elliott Last Filed: 01/10/25 09:36> Neuro: General: patient oriented x3 <Michele Bee PA-C - Last Filed: 01/10/25 09:36> Objective Data Active Medications Acetaminophen (Acetaminophen 325 Mg Tablet) 650 mg PO Q6H PRN PRN Reason: Pain, Mild 1-3,fever,headache Sodium Chloride (Ns) 1,000 mls @ 100 mls/hr IVCONT .Q10H [facility] Last Admin: 01/10/25 00:17 Dose: 100 mls/hr Documented By: ALESHIA Morphine Sulfate (Morphine Sulfate 4 Mg/Ml Cartridge) 4 mg IVPUSH Q4H PRN; Protocol PRN Reason: Pain, Severe (Pain Scale 7-10) Last Admin: 01/10/25 07:28 Dose: 4 mg Documented By: ALESHIA Naloxone HCl (Naloxone Hcl 0.4 Mg/Ml Vial) 0.04 mg IVPUSH Q5M PRN PRN Reason: Excessive sedation or RR < 8 Ondansetron HCl (Ondansetron Hcl 4 Mg/2 Ml Vial) 4 mg IVPUSH Q8H PRN PRN Reason: Nausea and Vomiting Pantoprazole Sodium (Pantoprazole Sodium 40 Mg/10 Ml Vial) 40 mg IVPUSH DAILY [facility] Sodium Chloride (0.9 % Sodium Chloride Flush 3 Ml Syringe) 3 ml IVFLUSH QSDEFT [facility] Last Admin: 01/10/25 07:05 Dose: Not Given Documented By: ABDIRASHID Non-Admin Reason: IV Running Sodium Chloride (0.9 % Sodium Chloride Flush 3 Ml Syringe) [facility] Last Admin: 01/10/25 07:05 Dose: Not Given Documented By: ABDIRASHID Non-Admin Reason: IV Running <Michele Bee PA-C - Last Filed: 01/10/25 09:36> Labs CBC & Chem 7: 01/10/25 06:43 01/10/25 06:43 <Michele Bee PA-C - Last Filed: 01/10/25 09:36> Labs: Laboratory Results - last 24 hr 01/09/25 01/10/25 09:48 06:43 MCV 96.1 96.3 MCH 33.0 33.2 H MCHC 34.4 34.5 RDW 16.8 H 16.8 H Plt Count 107 L 95 L MPV 8.4 L 9.0 L Immature Gran % (Auto) 0.3 Neut % (Auto) 21.1 L Lymph % (Auto) 76.6 H [place] % (Auto) 1.8 L Eos % (Auto) 0.0 Baso % (Auto) 0.2 Lymph # (Auto) 9.1 H [place] # (Auto) 0.2 Eos # (Auto) 0.0 Baso # (Auto) 0.0 Abs Immat Gran (auto) 0.04 H Absolute Neuts (auto) 2.5 Absolute Nucleated RBC 0.000 Nucleated RBC % (auto) 0.0 Smear Tech's Comments VERIFIED Anion Gap 15 12 Estim Creat Clear Calc 83.3 90.4 Estimated GFR > 60 > 60 Random Glucose 149 H 121 H Calcium 9.1 D 7.9 L D Magnesium 1.8 1.7 Total Bilirubin 0.6 AST 37 ALT 20 Alkaline Phosphatase 131 H Total Protein 7.3 Albumin 4.5 Lipase 16 <Michele Bee PA-C - Last Filed: 01/10/25 09:36> Procedures Date of Service Date of Service: 01/10/25 <Michele Bee PA-C - Last Filed: 01/10/25 09:36> 01/10/25 <Kulwant Sterling MD - Last Filed: 01/10/25 09:03> Progress Note: A&P Assessment and plan (1) S/P left colectomy: Status: Acute <Michele Bee PA-C - Last Filed: 01/10/25 09:36> Assessment and Plan: The patient seems to have adequate pain control although sore on incisions He looks well Abdomen is soft and benign Stoma edematous but viable, no significant output yet though he says he is passing some gas via the stoma We will DC NG tube DC Soares Ambulate Pain management Seen and examined independently <Kulwant Sterling MD - Last Filed: 01/10/25 09:03> (2) S/P colostomy: Status: Acute <Michele Bee PA-C - Last Filed: 01/10/25 09:36> Assessment and Plan: 74-year-old male POD1 left colectomy with 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 Patient is doing okay this morning. Experiencing 5/10 pain at rest, increased pain with any ambulation. No BM or flatus. Abdominal exam significant for pain to palpation, otherwise benign. incision site dressing intact. Patient remains NPO at this time, will advance to clears Continue with current pain regimen Soares discontinued Advance to clear liquid diet Recommend spirometry and ambulation as tolerated. Ostomy care consult pending. Will continue to follow <Michele Bee PA-C - Last Filed: 01/10/25 09:36> Time Spent With Patient Time: Total time managing care of this patient today ____ minutes. <Michele Bee PA-C - Last Filed: 01/10/25 09:36> Quality Stroke Does the patient have a stroke diagnosis?: No <CYDNEY Elliott Last Filed: 01/10/25 09:36> VTE Prior VTE?: No <Michele Bee PA-C - Last Filed: 01/10/25 09:36> VTE Risk Level:: Surgical - moderate <CYDNEY Elliott Last Filed: 01/10/25 09:36> VTE Device Contraindication: N/A - Device Ordered <CYDNEY Elliott Last Filed: 01/10/25 09:36> VTE Drug Contraindication: Treatment Not Indicated <Michele Bee PA-C - Last Filed: 01/10/25 09:36>
[2025-01-10] MEDS: Pantoprazole Sodium 40 MG/10 ML VIAL IVPUSH (08:59)
--- NOTE | 2025-01-10 09:03 | HO.POSTANES ---
Post Anesthesia Evaluation Post Anesthesia Evaluation Date of Service: 01/10/25 Vital Signs: Vital Signs Temp Pulse Resp BP Pulse Ox O2 Del Method 01/10/25 07:18 97.6 F 71 19 122/74 97 Room Air 01/10/25 03:45 97.4 F 68 16 132/70 99 Room Air 01/09/25 23:40 97.1 F 58 14 151/78 H 100 Room Air 01/09/25 22:53 61 15 150/85 H 97 Room Air 01/09/25 22:38 96.9 F 63 15 154/80 H 99 Room Air 01/09/25 22:23 63 16 150/81 H 99 Room Air 01/09/25 22:18 61 16 143/86 H 99 Room Air 01/09/25 22:13 61 16 147/83 H 96 Room Air 01/09/25 22:08 97.6 F 63 16 144/78 H 98 Room Air Anesthesia: General Endotracheal-GETA Mental Status: Awake Pain Control: Satisfactory Nausea/Vomiting: None Hydration: Adequate Anesthesia-Related Issues: No Anes. Related Issues
[2025-01-10 09:07] LABS: SLIDE REVIEW VERIFIED
--- NOTE | 2025-01-10 09:55 | MHC.CM.PN ---
IMM 01/10. Pt self-care, lives at home with his significant other/HCP Irina. Pt uses a cane. Irina will transport him home at discharge. HCP on file and verified. PCP: Dr. Aminata Moreno
[2025-01-10 11:23] VITALS: BP 126/69; PULSE 70; RESP 18; TEMP 36.2; O2SAT 99
--- NOTE | 2025-01-10 14:14 | HO.OSTOMY ---
Ostomy Consult: Initial Teaching 74yr old male admitted to [facility] on 01/09/25 see H&P for detailed history and admission.? Consult for new ostomy teaching. ?He had an End Colostomy creation on 01/09/[address] Banerjee. ?Upon entry into patient's room, he is lying in his bed, he is alert and oriented x 3, he currently complains of pain 5/10 at baseline. ?Introductions were completed, he is agreeable to continuing with teaching. ? We discussed his pain control at 5/10 at the current moment, he reports increasing the use of his IS and not yet ambulating. He reports he feels too much pain and discomfort to ambulate. He was educated on the importance and benefits of ambulation post GI surgery - he states understanding and is agreeable to ambulation tomorrow. ?We began by discussing general knowledge about the Colostomy and questions he had. ?We discussed opening and closing the ostomy pouch. ?He had not yet emptied his pouch only bowel sweat is noted.? We discussed the importance of emptying pouch when 1/3 to 1/2 full. He was also educated on when to contact purchasing agent/Dr Banerjee's / Dr. Sterling office/seek emergency medical treatment. ?He did watch the education videos supplied by [facility]. Permission was granted for pouch assessment and no leak was noted.? Stoma is dark red moist round and swollen and appears viable through pouch.? Due to no output from stoma pouch is not needed to be changed at this time.? Will assess at tomorrow?s teaching. ?He reported having no questions at this time. ?Patient was made aware that I will return to bedside later in week for ongoing education. ?He will benefit from VNA services at time of discharge. ?All questions and concerns addressed at this time. Next teaching session goals: Demonstrate open and close independently Steps to a pouch change he is able to recall
[2025-01-10 15:16] VITALS: BP 136/72; PULSE 76; RESP 17; TEMP 36.4; O2SAT 98
[2025-01-10 19:27] VITALS: BP 140/76; PULSE 73; RESP 16; TEMP 36.9; O2SAT 100
[2025-01-10] MEDS: 0.9 % Sodium Chloride Flush 3 ML SYRINGE IVFLUSH (20:15)
[2025-01-10 23:24] VITALS: BP 149/83; PULSE 70; RESP 16; TEMP 36.6; O2SAT 97
[2025-01-11] VITALS (7 sets, daily range): BP systolic 127–158; BP diastolic 74–84; PULSE 63–76; RESP 16–18; TEMP 36.2–37.2; O2SAT 96–99
[2025-01-11] MEDS: Acetaminophen 325 MG TABLET 650 MG PO (00:55)
[2025-01-11] MEDS: 0.9 % Sodium Chloride 1,000 ML 100 ML IVCONT (04:08)
[2025-01-11] MEDS: Morphine Sulfate 4 MG/ML CARTRIDGE IVPUSH ×3 (04:12→20:07)
--- NOTE | 2025-01-11 06:35 | PC.NURSE ---
Pt declined to be repositioned by SANDRA Frederick. This RN provided pt education on importance of repositioning and risks of refusing. Pt amenable after this. Pt repositioned to R side at this time.
--- NOTE | 2025-01-11 07:37 | PM.PNGS ---
Subjective Subjective Date of Service: 01/11/25 <Michele Bee PA-C - Last Filed: 01/11/25 07:53> 01/11/25 <Kulwant Sterling MD - Last Filed: 01/11/25 07:57> Patient reports: tolerating liquids well, flatus and no bowel movement <CYDNEY Elliott Last Filed: 01/11/25 07:53> Interval history: Patient is doing well, reports 6/10 abdominal pain. Patient states he is more comfortable at rest today. Patient is tolerating clear liquid diet well. Endorses flatus passing from ostomy site. Denies bowel movemtn. He has been using spirometry as instructed. Denies ambulation OOB. <CYDNEY Elliott Last Filed: 01/11/25 07:53> Physical Exam Vital Signs: Vital Signs: Last Vital Signs Temp 97.2 F 01/11/25 03:18 Pulse 65 01/11/25 03:18 Resp 16 01/11/25 05:06 BP 136/74 01/11/25 03:18 Pulse Ox 98 01/11/25 03:18 O2 Del Method Room Air 01/11/25 03:18 BMI result Body Mass Index 30.0 <Michele Bee PA-C - Last Filed: 01/11/25 07:53> Const: General: comfortable and no acute distress <CYDNEY Elliott Last Filed: 01/11/25 07:53> Orientation/consciousness: patient oriented x3 <Michele Bee PA-C - Last Filed: 01/11/25 07:53> Resp: Effort & Inspection: normal respiratory effort and able to speak in complete sentences <Michele Bee PA-C - Last Filed: 01/11/25 07:53> GI: Other: incision site dressing is clean and dry. Ostomy stump appears slightly dusky, not retracted. Small amounts of sanguenous fluid. No stool <CYDNEY Elliott Last Filed: 01/11/25 07:53> Inspection: No distended <CYDNEY Elliott Last Filed: 01/11/25 07:53> Palpation (GI): Tenderness to palpation present (GI) (generalized pain, incisional site pain. ), no guarding and not rigid <Michele Bee PA-C - Last Filed: 01/11/25 07:53> Neuro: General: patient oriented x3 <Michele Bee PA-C - Last Filed: 01/11/25 07:53> Objective Data Active Medications Acetaminophen (Acetaminophen 325 Mg Tablet) 650 mg PO Q6H PRN PRN Reason: Pain, Mild 1-3,fever,headache Last Admin: 01/11/25 00:55 Dose: 650 mg Documented By: ALESHIA Sodium Chloride (Ns) 1,000 mls @ 100 mls/hr IVCONT .Q10H [facility] Last Admin: 01/11/25 04:08 Dose: 100 mls/hr Documented By: ALESHIA Morphine Sulfate (Morphine Sulfate 4 Mg/Ml Cartridge) 4 mg IVPUSH Q4H PRN; Protocol PRN Reason: Pain, Severe (Pain Scale 7-10) Last Admin: 01/11/25 04:12 Dose: 4 mg Documented By: ALESHIA Naloxone HCl (Naloxone Hcl 0.4 Mg/Ml Vial) 0.04 mg IVPUSH Q5M PRN PRN Reason: Excessive sedation or RR < 8 Ondansetron HCl (Ondansetron Hcl 4 Mg/2 Ml Vial) 4 mg IVPUSH Q8H PRN PRN Reason: Nausea and Vomiting Pantoprazole Sodium (Pantoprazole Sodium 40 Mg/10 Ml Vial) 40 mg IVPUSH DAILY [facility] Last Admin: 01/10/25 08:59 Dose: 40 mg Documented By: ABDIRASHID Sodium Chloride (0.9 % Sodium Chloride Flush 3 Ml Syringe) 3 ml IVFLUSH [facility] Last Admin: 01/10/25 20:15 Dose: 3 ml Documented By: ALESHIA Sodium Chloride (0.9 % Sodium Chloride Flush 3 Ml Syringe) 3 ml IVFLUSH QSALFT [facility] Last Admin: 01/10/25 20:15 Dose: Not Given Documented By: ALESHIA Non-Admin Reason: Previously Administered <Michele Bee PA-C - Last Filed: 01/11/25 07:53> Labs CBC & Chem 7: 01/10/25 06:43 01/10/25 06:43 <Michele Bee PA-C - Last Filed: 01/11/25 07:53> Labs: Laboratory Results - last 24 hr 01/10/25 06:43 MCV 96.3 MCH 33.2 H MCHC 34.5 RDW 16.8 H Plt Count 95 L MPV 9.0 L Immature Gran % (Auto) 0.6 H Neut % (Auto) 26.3 L Lymph % (Auto) 71.1 H [place] % (Auto) 1.9 L Eos % (Auto) 0.0 Baso % (Auto) 0.1 Lymph # (Auto) 8.1 H [place] # (Auto) 0.2 Eos # (Auto) 0.0 Baso # (Auto) 0.0 Abs Immat Gran (auto) 0.07 H Absolute Neuts (auto) 3.0 Absolute Nucleated RBC 0.000 Nucleated RBC % (auto) 0.0 Smear Tech's Comments VERIFIED Anion Gap 12 Estim Creat Clear Calc 90.4 Estimated GFR > 60 Random Glucose 121 H Calcium 7.9 L D Magnesium 1.7 <Michele Bee PA-C - Last Filed: 01/11/25 07:53> Procedures Date of Service Date of Service: 01/11/25 <Michele Bee PA-C - Last Filed: 01/11/25 07:53> 01/11/25 <Kulwant Sterling MD - Last Filed: 01/11/25 07:57> Progress Note: A&P Assessment and plan (1) S/P left colectomy: Status: Acute <Michele Bee PA-C - Last Filed: 01/11/25 07:53> (2) S/P colostomy: Status: Acute <Michele Bee PA-C - Last Filed: 01/11/25 07:53> (3) Sigmoid volvulus: Status: Acute <Michele Bee PA-C - Last Filed: 01/11/25 07:53> Assessment and Plan: Feels well Passing good amounts of flatus Pain well controlled Voiding freely Abdomen is soft, nontender, stoma edematous but viable,no stool yet Incision clean and dry He has been tolerating clear liquids Okay to advance diet as tolerated Encouraged ambulation Seen and examined independently <Kulwant Sterling MD - Last Filed: 01/11/25 07:57> Assessment and Plan: 74-year-old male POD2 s/p sigmoid colon resection secondary to recurrent sigmoid volvulus. Patient improving from yesterday. Patient tolerating clear liquid diet. Pain is well controlled on current regimen. He has been using spirometry as instructed. Has not ambulated from bed yet. Abdominal exam significant for generalized tenderness, mostly incisional site pain. He reports passing flatus from ostomy bag, denies stool. He will be meeting with ostomy care this morning for education regarding new ostomy. Dressing changed this morning Recommend ambulation as tolerated, continue spirometry. Continue current pain regimen Ostomy and wound care consult this morning Will advance to full diet Will continue to follow patient. <Michele Bee PA-C - Last Filed: 01/11/25 07:53> Time Spent With Patient Time: Total time managing care of this patient today ____ minutes. <Michele Bee PA-C - Last Filed: 01/11/25 07:53> Quality Stroke Does the patient have a stroke diagnosis?: No <Michele Bee PA-C - Last Filed: 01/11/25 07:53> VTE Prior VTE?: No <Michele Bee PA-C - Last Filed: 01/11/25 07:53> VTE Risk Level:: Surgical - moderate <Michele Bee PA-C - Last Filed: 01/11/25 07:53> VTE Device Contraindication: N/A - Device Ordered <Michele Bee PA-C - Last Filed: 01/11/25 07:53> VTE Drug Contraindication: Treatment Not Indicated <Michele Bee PA-C - Last Filed: 01/11/25 07:53>
[2025-01-11 08:33] LABS: Basophils Percent Auto 0.1 % (0-2); Eosinophils Percent Auto 0.2 % (0-4); Hemoglobin 7.8 g/dl (14.0-18.0); Imm Gran Abs Auto 0.07 X10*3/uL (0.00-0.03); Imm Gran Pct Auto 0.9 % (0.0-0.4); Lymphocytes Absolute Auto 5.9 X10*3/uL (1.2-4.9); Lymphocytes Percent Auto 73.1 % (20-40); MANUAL DIFF FLAG SCAN; Mean Corpuscular HGB Conc 35.5 g/dl (31.0-36.0); Mean Corpuscular Hemoglobin 33.8 pg (27.0-33.0); Mean Corpuscular Volume 95.2 fL (80.0-98.0); Mean Platelet Volume 7.9 fL (9.4-12.4); Monocytes Absolute Auto 0.1 X10*3/uL (0.1-1.2); Monocytes Percent Auto 0.9 % (2-11); Neutrophils Percent Auto 24.8 % (45-73); Red Blood Count 2.31 X10*6/uL (4.60-5.80); Red Cell Distribution Width 17.2 % (11.0-16.0); SCAN SMEAR FLAG 1; White Blood Count 8.1 X10*3/uL (4.8-10.8)
[2025-01-11 08:34] LABS: Platelet Count 71 X10*3/uL (160-400)
[2025-01-11 08:45] LABS: Anion Gap 9 (12-20); Blood Urea Nitrogen 8 mg/dL (9-16); Calcium 7.5 mg/dL (8.4-10.2); Carbon Dioxide 28 mmol/L (22-29); Chloride 100 mmol/L (96-108); Creatinine Clr Calc Pharmacy 111.8; Estimated Glomerular Filt Rate > 60; Glucose Random 88 mg/dL (60-115); Sodium 134 mmol/L (135-145)
[2025-01-11 08:58] LABS: SLIDE REVIEW VERIFIED
[2025-01-11] MEDS: Pantoprazole Sodium 40 MG/10 ML VIAL IVPUSH (09:20)
[2025-01-11] MEDS: Potassium Chloride ER 20 MEQ TAB.ER.PRT 40 MEQ PO (10:48)
--- NOTE | 2025-01-11 11:06 | HO.OSTOMY ---
Ostomy Consult: Follow Up Teaching 74yr old male admitted to [facility] [place] on 01/09/25 see H&P for detailed history and admission.? Consult for new ostomy teaching. ?He had an End Colostomy creation on 01/09/[address] Banerjee. ?Upon entry into patient's room, he is lying in his bed, he is alert and oriented x 3, he currently complains of pain 5/10 at baseline. ?Introductions were completed, he recalls my role in his care and is agreeable to continuing with teaching. ? He reports increasing the use of his IS and not yet ambulating. he was educated to ambulate 2-3 times today - and was educated on the benefits - he reports understanding. ?We began by discussing general knowledge about the Colostomy and questions he had. ?We discussed opening and closing the ostomy pouch. ?He had not yet emptied his pouch only bowel sweat is noted.? We discussed the importance of emptying pouch when 1/3 to 1/2 full. He was abole to provide and open close on an empty pouch he did this several times. Together we performed a stoma model change - he had questions that lead to further discussion. He was also educated on when to contact admitting office escort/Dr Banerjee's / Dr. Sterling office/seek emergency medical treatment. ?Written education left at bedside for future review. Patients plans to come in tomorrow at 06/18 for teaching. Permission was granted for pouch assessment and silent leak was noted.? Stoma is dark red moist round and swollen and viable.? Bowelr sweat noted - gas observed and brown stool noted at Os. Pouch changed performed - changed into CVoloplast 79840 1 piece cut to 50mm round. Peristoma skin intact. Midline dressing change performed due to close proximity to stoma. Mild serosang drainage noted to central midline - padmini intact and no dehiscence noted. He observed and participated in the pouch change. He reported having no questions at this time. ?Patient was made aware that I will return to bedside later in week for ongoing education. ?He seems to have a good understanding of care at this time. He will benefit from VNA services at time of discharge. ?All questions and concerns addressed at this time. Next teaching session goals: Demonstrate open and close independently Steps to a pouch change he is able to recall
[2025-01-11] MEDS: ondansetron HCL 4 MG/2 ML VIAL IVPUSH (20:13)
[2025-01-12 03:26] VITALS: BP 173/84; PULSE 75; RESP 16; TEMP 36.6; O2SAT 98
[2025-01-12] MEDS: ondansetron HCL 4 MG/2 ML VIAL IVPUSH (03:32)
--- NOTE | 2025-01-12 03:37 | PC.NURSE ---
PATIENT REFUSING THROUGHOUT THE NIGHT TO BE REPOSITIONED BY MANUFACTURING PRODUCTION MANAGER AND RN. PATIENT EDUCATED ON IMPORTANCE. STILL REFUSING AND STATES HE IS TOO TIRED.
[2025-01-12] MEDS: Metoclopramide HCl 10 MG/2 ML VIAL 5 MG IVPUSH (06:28)
--- NOTE | 2025-01-12 07:22 | P.PNGS_ITS ---
Subjective Subjective Date of Service: 01/12/25 <Michele Bee PA-C - Last Filed: 01/12/25 07:59> 01/12/25 <Kulwant Sterling MD - Last Filed: 01/12/25 08:19> Patient reports: pain is less, bowel movement, nausea and vomiting <CYDNEY Elliott Last Filed: 01/12/25 07:59> Interval history: Pain is improved. Endorses nausea beginning after dinner last night. States he felt nauseous and ultimately had one episode of vomiting this morning. Continues to state he has some nausea, reduced appetite this morning. He reports bowel movements. He has continued to use spirometry and has been able to ambulate a few times to the chair in the room and to the bathroom. <CYDNEY Elliott Last Filed: 01/12/25 07:59> Physical Exam 2 Vital Signs: Vital Signs: Last Vital Signs Temp 97.9 F 01/12/25 03:26 Pulse 75 01/12/25 03:26 Resp 16 01/12/25 03:26 BP 173/84 H 01/12/25 03:26 Pulse Ox 98 01/12/25 03:26 O2 Del Method Room Air 01/12/25 03:26 O2 Flow Rate 1 01/11/25 07:46 BMI result Body Mass Index 30.0 <CYDNEY Elliott Last Filed: 01/12/25 07:59> Const: General: no acute distress <CYDNEY Elliott Last Filed: 01/12/25 07:59> Orientation/consciousness: patient oriented x3 <CYDNEY Elliott Last Filed: 01/12/25 07:59> Resp: Effort & Inspection: normal respiratory effort and able to speak in complete sentences <CYDNEY Elliott Last Filed: 01/12/25 07:59> GI: Other: Staple line intact, clean and dry. Dressing is not saturated. <CYDNEY Elliott Last Filed: 01/12/25 07:59> Inspection: No distended <CYDNEY Elliott Last Filed: 01/12/25 07:59> Palpation (GI): Soft to palpation, not firm, Tenderness to palpation present (GI) (mild generalized incisional site pain), no guarding and not rigid < Michele Bee PA-C - Last Filed: 01/12/25 07:59> Neuro: General: patient oriented x3 <Michele Bee PA-C - Last Filed: 01/12/25 07:59> Objective Data Active Medications Acetaminophen (Acetaminophen 325 Mg Tablet) 650 mg PO Q6H PRN PRN Reason: Pain, Mild 1-3,fever,headache Last Admin: 01/11/25 00:55 Dose: 650 mg Documented By: ALESHIA Morphine Sulfate (Morphine Sulfate 4 Mg/Ml Cartridge) 4 mg IVPUSH Q4H PRN; Protocol PRN Reason: Pain, Severe (Pain Scale 7-10) Last Admin: 01/11/25 20:07 Dose: 4 mg Documented By: CHRISTOPHER Naloxone HCl (Naloxone Hcl 0.4 Mg/Ml Vial) 0.04 mg IVPUSH Q5M PRN PRN Reason: Excessive sedation or RR < 8 Ondansetron HCl (Ondansetron Hcl 4 Mg/2 Ml Vial) 4 mg IVPUSH Q8H PRN PRN Reason: Nausea and Vomiting Last Admin: 01/12/25 03:32 Dose: 4 mg Documented By: CHRISTOPHER Comments: ok by cr to give early Pantoprazole Sodium (Pantoprazole Sodium 40 Mg/10 Ml Vial) 40 mg IVPUSH DAILY [facility] Last Admin: 01/11/25 09:20 Dose: 40 mg Documented By: ABDIRASHID Sodium Chloride (0.9 % Sodium Chloride Flush 3 Ml Syringe) 3 ml IVFLUSH [facility] Last Admin: 01/12/25 01:52 Dose: Not Given Documented By: CHRISTOPHER Non-Admin Reason: Previously Administered Sodium Chloride (0.9 % Sodium Chloride Flush 3 Ml [facility]ringe) [facility] Last Admin: 01/12/25 01:52 Dose: Not Given Documented By: CHRISTOPHER Non-Admin Reason: Previously Administered <Michele Bee PA-C - Last Filed: 01/12/25 07:59> Labs CBC & Chem 7: 01/12/25 06:37 01/11/25 08:26 <Michele Bee PA-C - Last Filed: 01/12/25 07:59> Labs: Laboratory Results - last 24 hr 01/11/25 08:26 MCV 95.2 MCH 33.8 H MCHC 35.5 RDW 17.2 H Plt Count 71 L D MPV 7.9 L Immature Gran % (Auto) 0.9 H Neut % (Auto) 24.8 L Lymph % (Auto) 73.1 H [place] % (Auto) 0.9 L Eos % (Auto) 0.2 Baso % (Auto) 0.1 Lymph # (Auto) 5.9 H [place] # (Auto) 0.1 Eos # (Auto) 0.0 Baso # (Auto) 0.0 Abs Immat Gran (auto) 0.07 H Absolute Neuts (auto) 2.0 Absolute Nucleated RBC 0.000 Nucleated RBC % (auto) 0.0 Smear Tech's Comments VERIFIED Anion Gap 9 L Estim Creat Clear Calc 111.8 Estimated GFR > 60 Random Glucose 88 Calcium 7.5 L <Michele Bee PA-C - Last Filed: 01/12/25 07:59> Procedures Date of Service Date of Service: 01/12/25 <Michele Bee PA-C - Last Filed: 01/12/25 07:59> 01/12/25 <Kulwant Sterling MD - Last Filed: 01/12/25 08:19> Progress Note: A&P Assessment and plan (1) S/P left colectomy: Status: Acute <Michele Bee PA-C - Last Filed: 01/12/25 07:59> Assessment and Plan: States he vomited last night Tired this morning and wants to sleep Abdomen is soft Stoma with stool Incision clean and dry We will keep on clear liquids for now Encouraged ambulation Incentive spirometry Seen and examined independently <Kulwant Sterling MD - Last Filed: 01/12/25 08:19> (2) S/P colostomy: Status: Acute <Michele Bee PA-C - Last Filed: 01/12/25 07:59> Assessment and Plan: 74-year-old male POD3 s/p sigmoid colon resection with ostomy creation. Pain is improving. Patient has begun ambulating as tolerated, continued use of spirometry. His diet was advanced to full, he began experiencing some nausea after his second meal. He had one episode of vomiting this morning. Continues to feel nauseous. H/H this morning improved. Ostomy site looks appropriate, small bowel movement present, small amounts of blood collected in bag. Staple line is dry and intact. Abdominal exam benign aside from generalized tenderness to palpation. No evidence of distention. Ostomy care completed initial education yesterday, consult appreciated Continue Ambulation and spirometry as tolerated Discussed diet, will reduce to clear liquids at this point and continue to monitor for symptoms. Continue current pain regimen Antiemetics as needed Will continue to follow <Michele Bee PA-C - Last Filed: 01/12/25 07:59> Time Spent With Patient Time: Total time managing care of this patient today ____ minutes. <Michele Bee PA-C - Last Filed: 01/12/25 07:59> Quality Stroke Does the patient have a stroke diagnosis?: No <Michele Bee PA-C - Last Filed: 01/12/25 07:59> VTE Prior VTE?: No <Michele Bee PA-C - Last Filed: 01/12/25 07:59> VTE Risk Level:: Surgical - moderate <Michele Bee PA-C - Last Filed: 01/12/25 07:59> VTE Device Contraindication: N/A - Device Ordered <Michele Bee PA-C - Last Filed: 01/12/25 07:59> VTE Drug Contraindication: Treatment Not Indicated <Michele Bee PA-C - Last Filed: 01/12/25 07:59>
[2025-01-12 07:25] LABS: Hematocrit 28.6 % (42.0-52.0); Hemoglobin 9.9 g/dl (14.0-18.0); Mean Corpuscular HGB Conc 34.6 g/dl (31.0-36.0); Mean Corpuscular Hemoglobin 33.3 pg (27.0-33.0); Mean Corpuscular Volume 96.3 fL (80.0-98.0); Mean Platelet Volume 8.6 fL (9.4-12.4); NRBC Pct Auto 0.1 /100WBC (0.0-0.2); Platelet Count 125 X10*3/uL (160-400); Red Blood Count 2.97 X10*6/uL (4.60-5.80); Red Cell Distribution Width 17.1 % (11.0-16.0); White Blood Count 14.1 X10*3/uL (4.8-10.8)
[2025-01-12 07:44] VITALS: BP 156/83; PULSE 71; RESP 18; TEMP 36.6; O2SAT 97
[2025-01-12] MEDS: Pantoprazole Sodium 40 MG/10 ML VIAL IVPUSH (09:01)
[2025-01-12] MEDS: Dextrose 5 % and 0.9 % NaCl 1,000 ML 80 ML IVCONT ×2 (09:07→21:54)
[2025-01-12] MEDS: 0.9 % Sodium Chloride Flush 3 ML SYRINGE IVFLUSH ×3 (09:09→14:52)
--- NOTE | 2025-01-12 10:44 | MHC.CM.PN ---
Patient is not yet medically cleared for dc (pain management & IV Protonix); home is the goal and CM will continue to follow.
[2025-01-12 12:00] VITALS: BP 145/87; PULSE 80; RESP 18; TEMP 36.3; O2SAT 94
--- NOTE | 2025-01-12 12:17 | HO.OSTOMY ---
Ostomy Consult: Follow Up Teaching 74yr old male admitted to [facility] on 01/09/25 see H&P for detailed history and admission.? Consult for new ostomy teaching. ?He had an End Colostomy creation on 01/09/[address] Banerjee. ?Upon entry into patient's room, he is lying in his bed, he is alert and oriented x 3, he currently complains of nausea and feeling unwell overnight. 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 He reports he is tired and weak and is wishing to defer teaching to future date and time. Understandably patient is not appropriate for continued teaching today. Patient encouraged to continue to get up an ambulate when feeling better and to continue to use his IS. His pouch was assessed and remains intact no leaking noted. The stoma is red and moist and pasty stool is noted in the pouch. Will conitnue to follow. Details from previous assessment: We began by discussing general knowledge about the Colostomy and questions he had. ?We discussed opening and closing the ostomy pouch. ?He had not yet emptied his pouch only bowel sweat is noted.? We discussed the importance of emptying pouch when 1/3 to 1/2 full. He was abole to provide and open close on an empty pouch he did this several times. Together we performed a stoma model change - he had questions that lead to further discussion. He was also educated on when to contact miller helper/Dr Banerjee's / Dr. Sterling office/seek emergency medical treatment. ?Written education left at bedside for future review. Patients plans to come in tomorrow at 06/18 for teaching. Permission was granted for pouch assessment and silent leak was noted.? Stoma is dark red moist round and swollen and viable.? Bowelr sweat noted - gas observed and brown stool noted at Os. Pouch changed performed - changed into CVoloplast 73315 1 piece cut to 50mm round. Peristoma skin intact. Midline dressing change performed due to close proximity to stoma. Mild serosang drainage noted to central midline - padmini intact and no dehiscence noted. He observed and participated in the pouch change. He reported having no questions at this time. ?Patient was made aware that I will return to bedside later in week for ongoing education. ?He seems to have a good understanding of care at this time. He will benefit from VNA services at time of discharge. ?All questions and concerns addressed at this time. Next teaching session goals: Demonstrate open and close independently Steps to a pouch change he is able to recall
--- NOTE | 2025-01-12 13:27 | P.PNIM_ITS ---
Subjective Subjective Date of Service: 01/12/25 Interval History: seen and evaluated this morning had vomiting overnight started gentle hydration by surgery No difficulties breahting Review of Systems Review of Systems: Yes all other systems are reviewed and are negative Physical Exam 2 Vital Signs: Vital Signs: Last Vital Signs Temp 97.4 F 01/12/25 12:00 Pulse 80 01/12/25 12:00 Resp 18 01/12/25 12:00 BP 145/87 H 01/12/25 12:00 Pulse Ox 94 01/12/25 12:00 O2 Del Method Room Air 01/12/25 12:00 O2 Flow Rate 1 01/11/25 07:46 BMI result Body Mass Index 30.0 Const: Other: Constitutional : interactive, not in distress Cardiovascular : no JVP, no lower extremity edema Respiratory : bilateral chest movement, not in resp distress Gastrointestinal: soft, lax, Non tender Skin : Warm, Dry Neurological : Alert & oriented , No focal deficit Objective Data Active Medications Acetaminophen (Acetaminophen 325 Mg Tablet) 650 mg PO Q6H PRN PRN Reason: Pain, Mild 1-3,fever,headache Last Admin: 01/11/25 00:55 Dose: 650 mg Documented By: ALESHIA Dextrose/Sodium Chloride (D5ns) 1,000 mls @ 80 mls/hr IVCONT .[id number] [facility] Last Admin: 01/12/25 09:07 Dose: 80 mls/hr Documented By: LOS Morphine Sulfate (Morphine Sulfate 4 Mg/Ml Cartridge) 4 mg IVPUSH Q4H PRN; Protocol PRN Reason: Pain, Severe (Pain Scale 7-10) Last Admin: 01/11/25 20:07 Dose: 4 mg Documented By: CHRISTOPHER Naloxone HCl (Naloxone Hcl 0.4 Mg/Ml Vial) 0.04 mg IVPUSH Q5M PRN PRN Reason: Excessive sedation or RR < 8 Ondansetron HCl (Ondansetron Hcl 4 Mg/2 Ml Vial) 4 mg IVPUSH Q8H PRN PRN Reason: Nausea and Vomiting Last Admin: 01/12/25 03:32 Dose: 4 mg Documented By: CHRISTOPHER Comments: ok by cr to give early Pantoprazole Sodium (Pantoprazole Sodium 40 Mg/10 Ml Vial) 40 mg IVPUSH DAILY [facility] Last Admin: 01/12/25 09:01 Dose: 40 mg Documented By: LOS Sodium Chloride (0.9 % Sodium Chloride Flush 3 Ml Syringe) 3 ml IVFLUSH QSHIFT [facility] Last Admin: 01/12/25 09:09 Dose: 3 ml Documented By: LOS Sodium Chloride (0.9 % Sodium Chloride Flush 3 Ml Syringe) 3 ml IVFLUSH QSHIFT [facility] Last Admin: 01/12/25 09:10 Dose: 3 ml Documented By: LOS Labs 01/12/25 06:37 01/11/25 08:26 Labs: Laboratory Results - last 24 hr 01/12/25 06:37 MCV 96.3 MCH 33.3 H MCHC 34.6 RDW 17.1 H Plt Count 125 L D MPV 8.6 L Absolute Nucleated RBC 0.020 H Nucleated RBC % (auto) 0.1 Assessment and Plan (1) S/P colostomy: Status: Acute (2) S/P left colectomy: Status: Acute Plan Patient is a 74-year-old male with a past medical history significant for CAD, HTN, HLD, chronic anemia, CLL and 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 chronic anemia monitor CBC and restart Iron supplement on discharge Thank you for allowing us to take care of the patient with you. for any further questions please contact hospitalist team. Quality Stroke Does the patient have a stroke diagnosis?: No VTE Prior VTE?: No VTE Risk Level:: Surgical - moderate VTE Device Contraindication: N/A - Device Ordered VTE Drug Contraindication: Treatment Not Indicated
[2025-01-12] MEDS: carvediloL 6.25 MG TABLET PO ×2 (14:50→21:54)
--- NOTE | 2025-01-12 15:08 | PM.EVENT ---
Event Note Date of Service: 01/12/25 Event Note: Seen on afternoon rounds Looks well Does state that she still has some nausea although without vomiting Abdomen is soft and benign Stoma with some stool Likely to have some ileus at this time We will keep on clear liquids Encouraged to get out of bed and ambulate Time Spent With Patient Time: Total time managing care of this patient today ____ minutes.
[2025-01-12 15:21] VITALS: BP 150/86; PULSE 76; RESP 16; TEMP 36.3; O2SAT 98
--- NOTE | 2025-01-12 18:34 | PC.NURSE ---
patient vommited after eating jello
[2025-01-12 19:25] VITALS: BP 156/83; PULSE 88; RESP 16; TEMP 36.4; O2SAT 94
[2025-01-12 23:29] VITALS: BP 126/76; PULSE 82; RESP 16; TEMP 36.7; O2SAT 97
[2025-01-13] VITALS (7 sets, daily range): BP systolic 115–151; BP diastolic 54–81; PULSE 66–72; RESP 16–18; TEMP 36.2–36.9; O2SAT 95–98
[2025-01-13 04:17] LABS: Appearance Urine Clear; Color Urine Dark Yellow; Glucose Urine UA Negative (Negative); Leukocyte Esterase Urine Negative (Negative); Nitrite Urine Negative (Negative); PH 6.5 (5.0-9.0); Specific Gravity - Urine 1.025 (1.005-1.025); UMIC TRIGGER UACC YES; Urine Blood Negative (Negative); Urine Ketones Trace mg/dL (Negative); Urine Protein 30 (1+) mg/dL (Neg-Trace)
[2025-01-13 04:35] LABS: Bacteria Urine None Seen (None Seen); RBC Urine 0-2 /HPF (0-2); WBC Urine 0-5 /HPF (0-5)
--- NOTE | 2025-01-13 08:01 | PM.PNGS ---
Subjective Subjective Date of Service: 01/18/25 Interval history: Feels much better this morning No further nausea or vomiting Says he had a good night Stoma functioning well Physical Exam Vital Signs: Vital Signs: Last Vital Signs Temp 98.5 F 01/13/25 04:00 Pulse 72 01/13/25 04:00 Resp 16 01/13/25 04:00 BP 130/73 01/13/25 04:00 Pulse Ox 98 01/13/25 04:00 O2 Del Method Room Air 01/13/25 04:00 O2 Flow Rate 1 01/11/25 07:46 BMI result Body Mass Index 30.0 Const: General: comfortable and no acute distress Resp: Effort & Inspection: normal respiratory effort Cardio: Rate: regular rate GI: Other: Stoma with good output of stool Palpation (GI): Soft to palpation, not firm and nontender Objective Data Active Medications Acetaminophen (Acetaminophen 325 Mg Tablet) 650 mg PO Q6H PRN PRN Reason: Pain, Mild 1-3,fever,headache Last Admin: 01/11/25 00:55 Dose: 650 mg Documented By: ALESHIA Atorvastatin Calcium (Atorvastatin Calcium 40 Mg Tablet) 40 mg PO DAILY [facility] Carvedilol (Carvedilol 6.25 Mg Tablet) 6.25 mg PO BID [facility]; Protocol Last Admin: 01/12/25 21:54 Dose: 6.25 mg Documented By: NAWAF Dextrose/Sodium Chloride (D5ns) 1,000 mls @ 80 mls/hr IVCONT .[id number] [facility] Last Admin: 01/12/25 21:54 Dose: 80 mls/hr Documented By: NAWAF Losartan Potassium (Losartan Potassium 50 Mg Tablet) 50 mg PO DAILY [facility]; Protocol Morphine Sulfate (Morphine Sulfate 4 Mg/Ml Cartridge) 4 mg IVPUSH Q4H PRN; Protocol PRN Reason: Pain, Severe (Pain Scale 7-10) Last Admin: 01/11/25 20:07 Dose: 4 mg Documented By: CHRISTOPHER Naloxone HCl (Naloxone Hcl 0.4 Mg/Ml Vial) 0.04 mg IVPUSH Q5M PRN PRN Reason: Excessive sedation or RR < 8 Ondansetron HCl (Ondansetron Hcl 4 Mg/2 Ml Vial) 4 mg IVPUSH Q8H PRN PRN Reason: Nausea and Vomiting Last Admin: 01/12/25 03:32 Dose: 4 mg Documented By: CHRISTOPHER Comments: ok by cr to give early Pantoprazole Sodium (Pantoprazole Sodium 40 Mg/10 Ml Vial) 40 mg IVPUSH DAILY [facility] Last Admin: 01/12/25 09:01 Dose: 40 mg Documented By: LOS Sodium Chloride (0.9 % Sodium Chloride Flush 3 Ml Syringe) 3 ml IVFLUSH [facility] Last Admin: 01/13/25 00:50 Dose: Not Given Documented By: NAWAF Non-Admin Reason: IV Running Sodium Chloride (0.9 % Sodium Chloride Flush 3 Ml Syringe) 3 ml IVFLUSH [facility] Last Admin: 01/13/25 00:50 Dose: Not Given Documented By: NAWAF Non-Admin Reason: IV Running Labs 01/12/25 06:37 01/11/25 08:26 Labs: Laboratory Results - last 24 hr 01/13/25 03:35 Urine Color Dark Yellow Urine Appearance Clear Urine pH 6.5 Ur Specific [place] 1.025 Urine Protein 30 (1+) H Urine Glucose (UA) Negative Urine Ketones Trace Urine Blood Negative Urine Nitrite Negative Ur Leukocyte Esterase Negative Urine RBC 0-2 Urine WBC 0-5 Ur Squamous Epith Cells 3-5 Urine Bacteria None Seen Hyaline Casts 3-5 Procedures Date of Service Date of Service: 01/18/25 Progress Note: A&P Assessment and plan (1) S/P colostomy: Status: Acute Assessment and Plan: Looks well No further nausea or vomiting Feels much better this morning Says he is ready to try food again Stoma functioning well Abdomen is soft and benign Out of bed, ambulate Diet as tolerated (2) S/P left colectomy: Status: Acute Time Spent With Patient Time: Total time managing care of this patient today ____ minutes. Quality Stroke Does the patient have a stroke diagnosis?: No VTE Prior VTE?: No VTE Risk Level:: Surgical - moderate VTE Device Contraindication: N/A - Device Ordered VTE Drug Contraindication: Treatment Not Indicated
--- NOTE | 2025-01-13 10:36 | MHC.CM.PN ---
PT is recommending home with services; CM will follow.
[2025-01-13] MEDS: Atorvastatin Calcium 40 MG TABLET PO (10:42)
[2025-01-13] MEDS: 0.9 % Sodium Chloride Flush 3 ML SYRINGE IVFLUSH ×3 (10:42→10:49)
[2025-01-13] MEDS: carvediloL 6.25 MG TABLET PO ×2 (10:42→20:31)
[2025-01-13] MEDS: Losartan Potassium 50 MG TABLET PO (10:42)
[2025-01-13] MEDS: Dextrose 5 % and 0.9 % NaCl 1,000 ML 80 ML IVCONT ×2 (10:43→23:16)
--- NOTE | 2025-01-13 16:13 | HO.OSTOMY ---
Ostomy Consult: Follow Up Teaching 74yr old male admitted to [facility] on 01/09/25 see H&P for detailed history and admission.? Consult for new ostomy teaching. ?He had an End Colostomy creation on 01/09/[address] Banerjee. ?Upon entry into patient's room, he is lying in his bed, he is alert and oriented x 3, he currently complains of mild nausea and feeling improved. He reports he has not vomited today and has been able to tolerate clears liquids in small amounts. He is agreeable to teaching along with his . We discussed general ostomy information. We went through written instruction left at bedside for further review. Patient encouraged to continue to get up an ambulate and to continue to use his IS. His pouch was assessed and remains intact no leaking noted. The stoma is red and moist and pasty stool is noted in the pouch. He reports he observed the pouch empty but did not participate - he was encouraged to participate in next pouch empty. He is able to provide me an open close multiple times on an empty pouch. He and his performed a stoma model change with instructions provided. We discussed life style adjustments and care fo after home. They both had questions that led to deep understanding and discussion. All questions were answered prior to ending teaching. He appears to have a great understanding of care for the ostomy at this time. He will benefit from VNA services at the time of d/c. Patient is aware outpt Ostomy Nurse from Dr. Sterling office will order home supplies. Some supplies left with patient for use at home.
[2025-01-14] VITALS (8 sets, daily range): BP systolic 118–135; BP diastolic 64–75; PULSE 57–70; RESP 16–18; TEMP 36.3–36.7; O2SAT 95–100
--- NOTE | 2025-01-14 08:37 | PM.PNGS ---
Subjective Subjective Date of Service: 01/14/25 <Michele Bee PA-C - Last Filed: 01/14/25 08:57> 01/14/25 <Kulwant Sterling MD - Last Filed: 01/14/25 14:12> Patient reports: no new complaints, feels better, still having pain, flatus and bowel movement <Michele Bee PA-C - Last Filed: 01/14/25 08:57> Interval history: Patient doing well this morning, continues to feel improvements. Denies nausea currently. Continues to have incisional site pain, well controlled with current medications. He is passing stool and gas via ostomy bag. He notes some improvement tolerating diet. States he no longer needs nausea meds after eating. He has been ambulating throughout the floor, continues to use spirometry. He expressed his concern about being discharged today and states he would feel more comfortable staying the weekend due to worries about pain control and tolerating full diet. <CYDNEY Elliott Last Filed: 01/14/25 08:57> Physical Exam Vital Signs: Vital Signs: Last Vital Signs Temp 97.9 F 01/14/25 08:00 Pulse 70 01/14/25 08:00 Resp 16 01/14/25 08:00 BP 123/75 01/14/25 08:00 Pulse Ox 100 01/14/25 08:00 O2 Del Method Room Air 01/14/25 08:00 O2 Flow Rate 1 01/11/25 07:46 BMI result Body Mass Index 30.0 <CYDNEY Elliott Last Filed: 01/14/25 08:57> Const: General: comfortable and no acute distress <CYDNEY Elliott Last Filed: 01/14/25 08:57> Orientation/consciousness: patient oriented x3 <CYDNEY Elliott Last Filed: 01/14/25 08:57> Resp: Effort & Inspection: normal respiratory effort and able to speak in complete sentences <CYDNEY Elliott Last Filed: 01/14/25 08:57> GI: Other: staple line is intact, clean and dry. Dressing applied. Ostomy bag present, stool and some small amounts of old blood noted. Ostomy stump reduced in size compared to yesterday <CYDNEY Elliott Last Filed: 01/14/25 08:57> Inspection: No distended <CYDNEY Elliott Last Filed: 01/14/25 08:57> Palpation (GI): Soft to palpation, not firm, Tenderness to palpation present (GI) (incisional site pain), no guarding and not rigid <CYDNEY Elliott Last Filed: 01/14/25 08:57> Neuro: General: patient oriented x3 <CYDNEY Elliott Last Filed: 01/14/25 08:57> Objective Data Active Medications Acetaminophen (Acetaminophen 325 Mg Tablet) 650 mg PO Q6H PRN PRN Reason: Pain, Mild 1-3,fever,headache Last Admin: 01/11/25 00:55 Dose: 650 mg Documented By: ALESHIA Atorvastatin Calcium (Atorvastatin Calcium 40 Mg Tablet) 40 mg PO DAILY [facility] Last Admin: 01/13/25 10:42 Dose: 40 mg Documented By: LOS Carvedilol (Carvedilol 6.25 Mg Tablet) 6.25 mg PO BID [facility]; Protocol Last Admin: 01/13/25 20:31 Dose: 6.25 mg Documented By: NAWAF Losartan Potassium (Losartan Potassium 50 Mg Tablet) 50 mg PO DAILY [facility]; Protocol Last Admin: 01/13/25 10:42 Dose: 50 mg Documented By: LOS Morphine Sulfate (Morphine Sulfate 4 Mg/Ml Cartridge) 4 mg IVPUSH Q4H PRN; Protocol PRN Reason: Pain, Severe (Pain Scale 7-10) Last Admin: 01/11/25 20:07 Dose: 4 mg Documented By: CHRISTOPHER Naloxone HCl (Naloxone Hcl 0.4 Mg/Ml Vial) 0.04 mg IVPUSH Q5M PRN PRN Reason: Excessive sedation or RR < 8 Ondansetron HCl (Ondansetron Hcl 4 Mg/2 Ml Vial) 4 mg IVPUSH Q8H PRN PRN Reason: Nausea and Vomiting Last Admin: 01/12/25 03:32 Dose: 4 mg Documented By: CHRISTOPHER Comments: ok by cr to give early Sodium Chloride (0.9 % Sodium Chloride Flush 3 Ml Syringe) [facility] Last Admin: 01/14/25 01:07 Dose: Not Given Documented By: NAWAF Non-Admin Reason: IV Running Sodium Chloride (0.9 % Sodium Chloride Flush 3 Ml Syringe) 3 ml IVFLUSH [facility] Last Admin: 01/14/25 01:07 Dose: Not Given Documented By: NAWAF Non-Admin Reason: IV Running <Michele Bee PA-C - Last Filed: 01/14/25 08:57> Labs CBC & Chem 7: 01/12/25 06:37 01/11/25 08:26 <Michele Bee PA-C - Last Filed: 01/14/25 08:57> Procedures Date of Service Date of Service: 01/14/25 <Mihcele Bee PA-C - Last Filed: 01/14/25 08:57> 01/14/25 <Kulwant Sterling MD - Last Filed: 01/14/25 14:12> Progress Note: A&P Assessment and plan (1) S/P colostomy: Status: Acute <Michele Bee PA-C - Last Filed: 01/14/25 08:57> Assessment and Plan: Continues to feel well Stoma with good output Tolerating diet well Abdomen is soft and benign He says he does not feel ready to be discharged today and wants to stay until tomorrow Daughter at bedside Instructions reviewed with the patient and her daughter Also brought in Liam our office nurse for stoma care instructions Seen and examined independently <Kulwant Sterling MD - Last Filed: 01/14/25 14:12> (2) S/P left colectomy: Status: Acute <Michele Bee PA-C - Last Filed: 01/14/25 08:57> Assessment and Plan: 74 year old male POD5 s/p left colectomy with end ostomy creation secondary to sigmoid volvulus. Patient is clinically improving. Pain is reduced today. Controlled on current regimen. Nausea improving post prandial. Bowel function returning towards baseline. Ostomy site improving. Abdominal exam remains benign. Incision site clean dry and intact, no concern for infection at this time. Dressing remains in place. No current plans for d/c, would like to continue to monitor his ability to tolerate diet. Continue ambulation/spirometry as tolerated Continue current pain regimen Continue full diet Will reasses this afternoon. <Michele Bee PA-C - Last Filed: 01/14/25 08:57> Time Spent With Patient Time: Total time managing care of this patient today ____ minutes. <Michele Bee PA-C - Last Filed: 01/14/25 08:57> Quality Stroke Does the patient have a stroke diagnosis?: No <Michele Bee PA-C - Last Filed: 01/14/25 08:57> VTE Prior VTE?: No <Michele Bee PA-C - Last Filed: 01/14/25 08:57> VTE Risk Level:: Surgical - moderate <CYDNEY Elliott Last Filed: 01/14/25 08:57> VTE Device Contraindication: N/A - Device Ordered <CYDNEY Elliott Last Filed: 01/14/25 08:57> VTE Drug Contraindication: Treatment Not Indicated <CYDNEY Elliott Last Filed: 01/14/25 08:57>
[2025-01-14] MEDS: Losartan Potassium 50 MG TABLET PO (09:03)
[2025-01-14] MEDS: carvediloL 6.25 MG TABLET PO ×2 (09:03→20:00)
[2025-01-14] MEDS: Atorvastatin Calcium 40 MG TABLET PO (09:03)
[2025-01-14] MEDS: 0.9 % Sodium Chloride Flush 3 ML SYRINGE IVFLUSH ×4 (09:04→23:40)
--- NOTE | 2025-01-14 10:30 | MHC.CM.PN ---
Patient has not yet been medically cleared for dc (Patient C/O some pain & concern for tolerating full diet); PT is recommending home PT and Patient is likely to benefit from SN as well (new ostomy); CM will continue to follow.
--- NOTE | 2025-01-14 12:19 | PM.DS ---
DS: Providers Provider Date of Service: 01/14/25 Date of admission: 01/09/25 22:29 Date of discharge: 01/14/25 Primary care physician: Aminata Moreno MD Attending physician on admission: Denice Banerjee Consults: 01/09/25 15:53 Consult to Gastroenterology Stat Consulting Provider: Eliseo Tineo Reason for consultation: volvulus Has provider been notified: Yes 01/09/25 17:13 Consult to Orthopedics Stat Consulting Provider: [facility] Orth[facility] Surgeons Reason for consultation: right hip fluid collection Has provider been notified: Yes 01/09/25 18:05 Consult to Hospitalist Routine Comment: Consulting Provider: [facility] Hospitalists Reason For Exam: general med issues - pt undergoing surgery today 01/10/25 05:33 Consult to Wound Care Routine Reason for consultation: S/p New ostomy 01/10/25 14:21 Consult to Ostomy Care Routine DS: Diagnosis Discharge Diagnosis (1) S/P colostomy: Status: Acute (2) S/P left colectomy: Status: Acute DS: Summary Hospital Course Hospital Course: Admission HPI: 74 yo male with history of CLL, SCC face s/p exciision, basal cell carcinoma, right hip fx s/p arthroplasty complicated by infection in June requiring hardware removal, abx spacer and replacement of hardware in September, recent admission to [facility] 12/20-12/23 for sigmoid volvulus treated with flexible sigmoidoscopy who presents to the ER for evaluation of severe abdominal pains along with constipation x3 days. He states the pain is severe, comes in waves and lasts about 2 minutes. It recurs frequently and has been getting worse over the last 24 hours. No N/V. He last had a BM and flatus 3 days ago. The patient was here 2 weeks ago with a similar situation and had the sigmoid volvulus do torsed by GI and postprocedure general surgery Dr. Sterling had several conversations with him about undergoing exploration and the resection. Patient refused to have the procedure which would entail temporizing colostomy. He decided to take his chances for recurrence and was warned about a high chance of recurrence on discharge. He comes in today with similar situation and symptoms as before and CT scan of his abdomen and pelvis are consistent with recurrence at this volvulus with backup dilated colon as well as stool in the proximal colon. Patient is complaining of significant pain which comes in waves and then improves. This point he understands in his accepting of surgery and the colostomy Hospital Course: The patient was brought to the operating room on 01/09/[address] Banerjee where he had a left colectomy and ostomy creation secondary to recurrent sigmoid volvulus. The patient tolerated to procedure well and was admitted to the [facility] to continue care. In the immediate days post operatively the patient was doing well, experiencing incisional site pain, abdominal exam was benign. He met with the ostomy care nurse and began education about caring for the ostomy site. Patient showed a strong understanding of this. On POD2 the soares catheter was removed without complications. Patient continued to produce urine and void. He began ambulating in the room. He was passing flatus and stool began to pass through the ostomy site so the patients diet was advanced. Later that day he began to have nausea and an episode of vomiting, so his diet was decreased to clear liquid diet. Over the next few days he continued to improve, and eventually his post prandial nausea subsided and diet was again advance to full diet, which he tolerated. Patients pain has been well controlled with oral medications. He continued to increase ambulation. On the day of discharge his abdominal exam remains benign, continues to have expected incisional site pain. Incision site is intact, dry, no concern for infection and padmini remain in place. Continues to pass stool via ostomy site. Patient is stable at the time of discharge Status at Discharge Functional status at discharge: uses cane/walker Overall status at discharge: patient is progressing back to baseline Time Attestation Discharge Coordination Time (in mins): 30 Quality: Safe Use of Opioids Does Pt have an Active Cancer Diagnosis on the Problem List?: No Quality: Stroke Does the patient have a stroke diagnosis?: No Physical Exam Vital Signs: Vital Signs: Last Vital Signs Temp 97.4 F 01/14/25 11:44 Pulse 70 01/14/25 11:44 Resp 16 01/14/25 11:44 BP 124/71 01/14/25 11:44 Pulse Ox 100 01/14/25 11:44 O2 Del Method Room Air 01/14/25 11:44 O2 Flow Rate 1 01/11/25 07:46 BMI result Body Mass Index 30.0 Const: General: comfortable and no acute distress Orientation/consciousness: patient oriented x3 Resp: Effort & Inspection: normal respiratory effort and able to speak in complete sentences GI: Other: incision site intact, padmini in place. No surrounding erythema, edema, warmth. ostomy noted in LLQ Inspection: No Abdominal wall edema and No distended Palpation (GI): Soft to palpation, not firm, Tenderness to palpation present (GI) (generalized incisional site pain ), no guarding and not rigid Neuro: General: patient oriented x3 DS: Data Data Completed and Pending Completed studies during hospitalization [Text1]: 01/09/25 20:15 Surgical [PTH] Routine Diagnosis A. Colon, left/sigmoid, segmental resection: - Segment of colon (99.0 cm in length) with marked dilatation and mural thinning of the wall secondary to volvulus. - Focal active colitis (non-specific). - Four benign pericolonic lymph node (0/4). B. Colon, distal transverse, segmental resection: - Segment of colon (36.0 cm in length) with moderate dilatation and mural thinning of the wall secondary to volvulus. - Mesenteric hematoma. - One benign pericolonic lymph node (0/1). Procedures Drainage of Sigmoid Colon with Drainage Device, Via Natural or Artificial Opening Endoscopic (12/20/24) Discharge Plan Discharge Anticipated Discharge Date/Time: 01/15/25 07:37 Patient Disposition: Home Health Service Discharge Diagnosis: S/P left colectomy with end colostomy secondary to recurrent sigmoid volvulus Referrals: [facility]AL[facility] [Outside] - 1 Week Kulwant Sterling MD [Physician] - 2 Weeks Aminata Moreno MD [Primary Care Provider] - 1 Week Discharge Medications: New docusate sodium [Colace] 100 mg capsule 100 mg PO BID Qty: 60 2RF oxycodone 5 mg tablet 5 mg PO Q6H PRN (Reason: pain (scale score 7-10)) Qty: 15 0RF Rx Instructions: Partial Fill upon patient request. Continued multivitamin Tablet 1 tab PO DAILY sennosides [senna] 8.6 mg Tablet 8.6 mg PO DAILY acetaminophen [Tylenol] 325 mg Tablet 650 mg PO Q6H PRN (Reason: Pain) cetirizine 10 mg Tablet 10 mg PO BEDTIME PRN (Reason: Allergy Symptoms) cyanocobalamin (vitamin B-12) 1,000 mcg Tablet 1,000 mcg PO DAILY fexofenadine 180 mg Tablet 180 mg PO DAILY ferrous sulfate [iron] 325 mg (65 mg iron) Tablet 325 mg PO DAILY bisacodyl [Dulcolax (bisacodyl)] 5 mg Tablet,Delayed Release (Dr/Ec) 5 mg PO BEDTIME PRN (Reason: Constipation) atorvastatin 40 mg tablet 40 mg PO DAILY carvedilol 6.25 mg tablet 6.25 mg PO BID cefadroxil 500 mg capsule 500 mg PO BID methocarbamol 750 mg tablet 750 mg PO Q8H PRN (Reason: muscle spasm) amlodipine 10 mg tablet 10 mg PO DAILY losartan 100 mg tablet 100 mg PO DAILY oxycodone 5 mg tablet 5 mg PO Q8H PRN (Reason: severe pain) polyethylene glycol 3350 17 gram Powder In Packet 17 g PO DAILY Qty: 30 0RF Discharge Orders: Discharge Order (Routine); Ordered 01/15/25 Ordered By: Paul Bray Diet: Advance to usual diet Activity on Discharge: No heavy lifting Stand Alone Forms: Patient Portal Discharge page Print Language: [place] Activity Restrictions/Additional Instructions: No heavy lifting greater than 15 pounds, or strenuous activity. You can continue with normal diet You call to schedule a follow up with Dr Sterling in the office in 2 weeks for routine follow up. Your padmini will remain in place at the time of discharge and will be removed in the office at a future follow up. You can leave the staple line open without a dressing. You may shower while the padmini are intact. Do not submerge in water. Please reach out to the office or be seen at the emergency department if you develop: -Fever >101.5 -Increasing pain or swelling of the area -Increased bleeding from the incision site or the incision begins to separate -If you are concerned for incision site infection such as redness, warmth, discharge. Some yellow/pink tinged discharge is normal -You develop nausea or vomiting Ostomy recommendations: 1. Empty pouch before pouch change 2. Remove pouch using push/pull technique from top to bottom 3. Cleanse stoma and skin with tap water only - no soap or baby wipes 4. Pat dry 5. Measure stoma and cut new pouch no more than 1/8 inch larger than stoma and no smaller than stoma 6. If instructed by your ostomy nurse stretch barrier seal to the size of the stoma and press onto skin around stoma (up to the edge of the stoma but not onto the stoma) 7. Press the new pouch into place and hold for several minutes (close pouch tail) 8. Empty pouch when 1/3 to 1/2 full 9. Change pouch twice weekly on a schedule (for example, every Friday and ) and as needed for any leaking (feels like intense itch or burn at edge of stoma) Care Plan Goals: Return to baseline level of health Pain mangement Ostomy care Health Concerns: Post operative pain New ostomy site Plan of Treatment: Pain management No heavy lifting of strenuous exercise Assessment: Patient doing well post op Patient Instructions: Colostomy Care (DC), Colectomy Diet (DC) Discharge Date/Time: 01/15/25 11:34
--- NOTE | 2025-01-14 12:58 | MHC.CM.PN ---
Per surgeon, likely dc tomorrow, home w/ services. [facility] updated.
--- NOTE | 2025-01-14 13:23 | W.MHC.F2F ---
Service Date Service Date: 01/14/25 Encounter Date of encounter: 01/14/25 Reasons for Services Signs and symptoms assessed: s/p colostomy for sigmoid volvulus Reason for retirement: wound care (ostomy care) Homebound: Leaving the home is medically contraindicated at this time without the asist of a device and/or another person due th the listed conditions above and below. Reason homebound: unsteady gait / fall risk, leg weakness and other (immediately post op) Certification: Based on the above findings, I certify that this patient is confined to the home and needs intermittent retirement care, physical therapy and/or speech therapy, or continues to need occupational therapy. The patient is under my care, and I have initiated the establishment of the plan of care. The patient will be followed by a physician who will periodically review the plan of care. Time Spent With Patient Time: Total time managing care of this patient today __30__ minutes.
--- NOTE | 2025-01-14 15:23 | PC.NURSE ---
Pt transported to this unit [id number]. A/O x4 at bedside. Pt denies pain, n/v at this time. Ostomy with scant blood drainage noted. Dr Sterling in to see pt. Plan for discharge home with VNA services tomorrow
[2025-01-15 03:41] VITALS: BP 115/68; PULSE 61; RESP 16; TEMP 36.6; O2SAT 95
[2025-01-15 07:38] VITALS: BP 142/67; PULSE 55; RESP 16; TEMP 36.5; O2SAT 97
--- NOTE | 2025-01-15 07:55 | P.PNGS_ITS ---
Subjective Subjective Date of Service: 01/15/25 Interval history: Patient reports having a good night. Feels comfortable this morning. Reports a large amount of stool in his colostomy. He is nervous about ostomy care but feels he can do it. Physical Exam 2 Vital Signs: Vital Signs: Last Vital Signs Temp 97.7 F 01/15/25 07:38 Pulse 55 01/15/25 07:38 Resp 16 01/15/25 07:38 BP 142/67 H 01/15/25 07:38 Pulse Ox 97 01/15/25 07:38 O2 Del Method Room Air 01/15/25 07:38 O2 Flow Rate 1 01/11/25 07:46 BMI result Body Mass Index 30.0 Const: General: comfortable and no acute distress O rientation/consciousness: patient oriented x3 Resp: Effort & Inspection: normal respiratory effort and able to speak in complete sentences GI: Other: staple line is intact, clean and dry. Dressing applied. Ostomy bag with stool and gas. Inspection: No distended Palpation (GI): Soft to palpation, nontender, no guarding and not rigid Neuro: General: patient oriented x3 Extrem: General: No edema Objective Data Active Medications Acetaminophen (Acetaminophen 325 Mg Tablet) 650 mg PO Q6H PRN PRN Reason: Pain, Mild 1-3,fever,headache Last Admin: 01/11/25 00:55 Dose: 650 mg Documented By: ALESHIA Atorvastatin Calcium (Atorvastatin Calcium 40 Mg Tablet) 40 mg PO DAILY [facility] Last Admin: 01/14/25 09:03 Dose: 40 mg Documented By: ALEXEY Carvedilol (Carvedilol 6.25 Mg Tablet) 6.25 mg PO BID [facility]; Protocol Last Admin: 01/14/25 20:00 Dose: 6.25 mg Documented By: DEE Losartan Potassium (Losartan Potassium 50 Mg Tablet) 50 mg PO DAILY [facility]; Protocol Last Admin: 01/14/25 09:03 Dose: 50 mg Documented By: ALEXEY Naloxone HCl (Naloxone Hcl 0.4 Mg/Ml Vial) 0.04 mg IVPUSH Q5M PRN PRN Reason: Excessive sedation or RR < 8 Ondansetron HCl (Ondansetron Hcl 4 Mg/2 Ml Vial) 4 mg IVPUSH Q8H PRN PRN Reason: Nausea and Vomiting Last Admin: 01/12/25 03:32 Dose: 4 mg Documented By: CHRISTOPHER Comments: ok by cr to give early Sodium Chloride (0.9 % Sodium Chloride Flush 3 Ml Syringe) 3 ml IVFLUSH [facility] Last Admin: 01/14/25 23:39 Dose: 3 ml Documented By: ROSALIOASY Sodium Chloride (0.9 % Sodium Chloride Flush 3 Ml Syringe) [facility] Last Admin: 01/14/25 23:40 Dose: 3 ml Documented By: ROSALIOASY Labs 01/12/25 06:37 01/11/25 08:26 Procedures Date of Service Date of Service: 01/15/25 Progress Note: A&P Assessment and plan (1) Sigmoid volvulus: Status: Acute (2) S/P left colectomy: Status: Acute (3) S/P colostomy: Status: Acute Plan 74-year-old male patient status post sigmoid colectomy for volvulus with ostomy. He tolerated the procedure well in his doing quite well today. He feels ready for discharge to home. He will follow up in the office in approximately 1 week. He should call sooner for any concerns with his ostomy or incisions. Time Spent With Patient Time: Total time managing care of this patient today ____ minutes. Quality Stroke Does the patient have a stroke diagnosis?: No VTE Prior VTE?: No VTE Risk Level:: Surgical - moderate VTE Device Contraindication: N/A - Device Ordered VTE Drug Contraindication: Treatment Not Indicated
[2025-01-15] MEDS: Atorvastatin Calcium 40 MG TABLET PO (08:43)
[2025-01-15] MEDS: carvediloL 6.25 MG TABLET PO (08:43)
[2025-01-15] MEDS: Losartan Potassium 50 MG TABLET PO (08:43)
--- NOTE | 2025-01-15 08:55 | MHC.CM.PN ---
PT WILL DC HOME WITH [facility] TODAY VIA FAMILY TRANSPORT
[2025-01-15 11:33] VITALS: BP 125/82; PULSE 63; RESP 18; TEMP 36.6; O2SAT 98
== END 2025-01-15 11:34 | disposition home health service (06) | DRG 331 ==
LOC: HO.ED 15:20 → HO.SSS 19:38 → HO.IMC 23:12 → HO.S3 01-14 11:49
PROVIDERS: Student in an Organized Health Care Education/Training Program; Admitting Provider Surgery; Emergency Provider Emergency Medicine; PCP Family Medicine; Visit Provider Surgery
PROC: 0DTG0ZZ Resection of Left Large Intestine, Open Approach (ICD-10-PCS; CPT 49000; principal; 2025-01-09 18:00)
DX: K56.2 Volvulus (principal); I25.10 Atherosclerotic heart disease of native coronary artery without angina pectoris; Z85.6 Personal history of leukemia; D64.9 Anemia, unspecified; I10 Essential (primary) hypertension; K56.7 Ileus, unspecified; Z95.5 Presence of coronary angioplasty implant and graft; Z79.899 Other long term (current) drug therapy
CPT/HCPCS: 36415; 74018; 74177; 80048; 80053; 81001; 81003; 83690; 83735; 85025; 85027; 88307; 97116; 97161; 99284; J1100; J1171; J2003; J2250; J2270; J2405; J2470; J2704; J2765; J2795; J3010; J3480; Q9967

== ENCOUNTER → 2025-01-09 09:55 | Outpatient (BNV) | payer MEDICARE, SELFPAY | PROVIDERS: Emergency Provider Emergency Medicine; PCP Family Medicine; Visit Provider Radiology Diagnostic Radiology | DX: K56.609 Unspecified intestinal obstruction, unspecified as to partial versus complete obstruction (principal); K56.41 Fecal impaction | CPT/HCPCS: 74177 ==

== ENCOUNTER → 2025-01-09 11:56 | Outpatient (BNV) | payer MEDICARE, SELFPAY | PROVIDERS: Emergency Provider Emergency Medicine; PCP Family Medicine; Visit Provider Surgery | DX: K56.2 Volvulus (principal) | CPT/HCPCS: 44143; 99223 ==

== ENCOUNTER → 2025-01-09 22:29 | Outpatient (BNV) | payer MEDICARE, SELFPAY | PROVIDERS: Admitting Provider Surgery; Emergency Provider Emergency Medicine; PCP Family Medicine; Visit Provider Physician Assistant | DX: Z93.3 Colostomy status (principal); Z90.49 Acquired absence of other specified parts of digestive tract | CPT/HCPCS: 99222; 99231 ==

== ENCOUNTER → 2025-01-09 22:29 | Outpatient (BNV) | payer MEDICARE, SELFPAY | PROVIDERS: Admitting Provider Surgery; Emergency Provider Emergency Medicine; PCP Family Medicine; Visit Provider Physician Assistant | DX: R18.8 Other ascites (principal); Z93.3 Colostomy status; Z90.49 Acquired absence of other specified parts of digestive tract; K56.2 Volvulus | CPT/HCPCS: 99221 ==

== ENCOUNTER 2025-02-08 15:12 | Outpatient (AMB) | payer MEDICARE, SELFPAY ==
--- NOTE | 2025-02-08 15:14 | A.OFFVIS_ITS ---
Vital Signs 02/08/25 15:22 Height 5 ft 6 in Weight 178 lb BMI 28.7 BP 120/64 Blood Pressure Location Lt brachial Position Sitting Pulse 65 Intake Visit Reasons: S/P sigmoid colectomy Intake Note: Patient is seen in office for post op assessment post left colectomy with end- colostomy creation. 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: No Accompanied by: Family/Other Allergies No Known Allergies Allergy (Verified 02/08/25 15:23) Medication List - Last Reconciled 02/10/25 by Paul Bray MD acetaminophen (Tylenol) 650 mg PO Q6H PRN amlodipine 10 mg PO DAILY atorvastatin 40 mg PO DAILY bisacodyl (Dulcolax (bisacodyl)) 5 mg PO BEDTIME PRN carvedilol 6.25 mg PO BID cefadroxil 500 mg PO BID cetirizine 10 mg PO BEDTIME PRN cyanocobalamin (vitamin B-12) 1,000 mcg PO DAILY docusate sodium (Colace) 100 mg PO BID ferrous sulfate (iron) 325 mg PO DAILY fexofenadine 180 mg PO DAILY losartan 100 mg PO DAILY methocarbamol 750 mg PO Q8H PRN multivitamin 1 tab PO DAILY oxycodone 5 mg PO Q8H PRN oxycodone 5 mg PO Q6H PRN polyethylene glycol 3350 17 grams PO DAILY sennosides (senna) 8.6 mg PO DAILY HPI Comments Details: 74-year-old male patient returning following a recent hospitalization for 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 Banerjee on 01/09/2025. He tolerated the procedure well and was subsequently discharged home on 01/15/2025. Since his discharge he feels much improved and is doing well with the colostomy care. His appetite has improved although he did lose weight following the surgery. He reports a prior colonoscopy approximately 3 years ago at an outside institution and was told that this was normal. He denies any bleeding or discharge from the incision. He returns today for wound check and staple removal. [facility] Medical History Coronary artery disease Chronic anemia Basal cell carcinoma Squamous cell carcinoma of face CLL (chronic lymphocytic leukemia) HLD (hyperlipidemia) HTN (hypertension) Surgical History Status post Mohs surgery for basal cell carcinoma Hx of colectomy (01/09/25) H/O neck surgery H/O heart artery stent History of total right hip replacement History of total left hip replacement History of facial surgery Social History Household Members: Significant Other Housing: Condominium Are you a primary customer care assistant to a significant other at home: No Do you presently have visiting nurse or other home services: No Patient Tobacco Use Status: Never used Tobacco Substance Use Type: Marijuana service: No Physical Exam Vital Signs: Last Vital Signs Pulse 65 02/08/25 15:22 BP 120/64 02/08/25 15:22 BMI result Body Mass Index 28.7 Const General: no acute distress Nutritional Appearance: well nourished Orientation/consciousness: patient oriented x3 Limitations: no limitations HEENT Other: Right face reconstruction with skin graft following excision of skin cancer Resp Effort & Inspection: normal respiratory effort, no audible wheezes, no cough and no respiratory distress GI Other: Well-healed midline incision and ostomy site. Ashley removed and wounds found to be well healed. No evidence of hernia are appreciated. Inspection: Yes normal to inspection Palpation (GI): Soft to palpation, nontender, no guarding and not rigid Neuro General: patient oriented x3 Extrem Other: No edema Assessment & Plan Assessment & Plan (1) S/P left colectomy: Code(s): Z90.49 - Acquired absence of other specified parts of digestive tract Category: Surgical (2) S/P colostomy: Code(s): Z93.3 - Colostomy status Category: Surgical Plan Patient continues to do well following a sigmoid colectomy with end-colostomy for sigmoid volvulus. His wounds are clean and intact. Ashley removed today. We discussed closure of colostomy which typically is delayed for approximately 3 months following the surgery. He will return in 1 month for follow-up examination and further discussion regarding closure of colostomy. He may resume normal activity at this time. Coding Level of Care Code Global (68792) Diagnoses S/P left colectomy Z90.49 S/P colostomy Z93.3
[2025-02-08 15:22] VITALS: BP 120/64; PULSE 65; BMI 28.7
--- OUTSIDE RECORDS SUMMARY | 2025-02-08 16:47 | XMS_ITS | Clinical Summary ---
Author Organization [employer] Building Address [address] [place] [address] Phone Care Team Providers Care Clinical Quality Manager Name Role Phone Aminata Moreno MD [...] mouth every 6 hours as needed. Active atorvastatin (LIPITOR) 40 mg tablet Take 1 tablet (40 mg total) by mouth 1 (one) time each day. 08/09/20 20 Active carvediloL (COREG) 6.25 mg tablet Take 1 tablet (6.25 mg total) by mouth 2 (two) times a day with meals. 03/13/20 23 Active cyanocobalamin (VITAMIN B-12) 100 mcg tablet 1 (one) time each day. Active losartan (COZAAR) 100 mg tablet Take 1 tablet (100 mg total) by mouth 1 (one) time each day. 02/21/20 21 Active melatonin 1 mg tablet,chewable at bedtime. Ac tive cefadroxil 500 mg capsule Take 1 capsule (500 mg total) by mouth 2 (two) times a day with meals. 60 capsule 11 12/02/19 25 Active amLODIPine (NORVASC) 10 mg tablet Take 1 tablet (10 mg total) by mouth 1 (one) time each day. 30 tablet 11 01/26/20 25 026 Active amLODIPine (NORVASC) 10 mg tablet Take 1 tablet (10 mg total) by mouth 1 (one) time each day in the evening. 01/13/20 24 025 Discontinued bisacodyL (DULCOLAX) 5 mg EC tablet Take 1 tablet (5 mg total) by mouth 1 (one) time each day in the evening. 025 Discontinued( erapy completed) docusate sodium (COLACE) 100 mg capsule Take 1 capsule (100 mg total) by mouth 1 (one) time each day in the evening. 025 Discontinued( erapy completed) methocarbamoL (ROBAXIN) 750 mg tablet Take 1 tablet (750 mg total) by mouth every 6 (six) hours if needed for muscle spasms. 60 each 5 11:45 AM EST 09/19/19 025 Discontinued( erapy completed) oxyCODONE (ROXICODONE) 5 mg immediate release tablet Take 1 tablet (5 mg total) by mouth every 4 (four) hours if needed (pain). Max Daily Amount: 30 mg 42 tablet 5 11:45 AM EST 09/19/19 025 Discontinued( erapy completed) senna-docusate (PERICOLACE) 8.6-50 mg per tablet Take 1 tablet by mouth 2 (two) times a day. 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 Head and neck cancer ([facility] V24, [facility] V28) 09/03/2022 Assessment & Plan (08/25/2024 12:48 PM EST): CT head and neck performed 08/18/2024: All negative for mass, metastatic disease, lymphadenopathy. Followed closely by radiation oncology. See note below. Infrarenal abdominal aortic aneurysm (AAA) without rupture ([facility] V24) 08/27/2022 Overview (08/17/2024): PET/CT TUMOR IMAGING SKULL BASE TO MID-THIGH ? 08/26/2022 Moderate calcified and sclerosis of the aortoiliac tree with fusiform infrarenal aneurysm measuring 3.1 cm Hyponatremia 11/12/2021 CLL (chronic lymphocytic gricel kemia) ([facility] V24, [facility] V28) 01/13/2019 Overview (05/21/2024): Dr Cotton Assessment [...] outpatient management. Coronary artery disease invo lving tu[place] coronary artery of tu[place]ne heart without angina pectoris 12/05/2017 Assessment & [...] Encounters Date Type Department Care Team Description 01/27/2025 Billing Patient Not Present Adult Medicine - [address] [phone] Aminata Moreno MD Encounter for surgical aftercare following surgery of digestive system (Primary Dx); Encounter for attention to colostomy (CMS/HCC V24, CMS/HCC V28); Essential (primary) hypertension; Chronic lymphocytic leukemia of B-cell type not having achieved remission (CMS/HCC V24, CMS/HCC V28); Anemia in neoplastic disease; Atherosclerosis of tu[place] coronary artery without angina pectoris, unspecified whether tu[place]ne or transplanted heart 01/26/2025 Telephone Adult [facility] [address] [place] [phone] Aminata Moreno MD Forms/questionnaires ([facility] 01/17/2025-03/17/2025) 01/24/2025 Telephone Adult [facility] [address] [place] [phone] Aminata Moreno MD FYI 01/21/2025 10:00 AM EDT Office Visit Adult [address] [phone] Aminata Moreno MD Hospital discharge follow-up (Primary Dx); Colostomy in place ([facility], [facility] V28); Other iron deficiency anemia; CLL (chronic lymphocytic leukemia) ([facility] V24, [facility] V28); Primary hypertension; S/P drug eluting coronary stent placement 01/20/2025 8:45 AM EDT Office Visit [facility] Hematology Oncology [address] [place] [phone] Lamar Cotton MD CLL (chronic lymphocytic leukemia) ([facility] V24, [facility] V28) (Primary Dx); Other non-autoimmune hemolytic anemias ([facility] V24, [facility] V28) 01/20/2025 8:44 AM EDT - 01/20/2025 11:59 PM EDT Hospital Encounter [facility] Infusion Center [address] [phone] Lamar Cotton MD CLL (chronic lymphocytic leukemia) ([facility] V24, [facility] V28) (Primary Dx); Anemia, unspecified type Discharge Disposition: Home or Self Care 01/19/2025 Telephone Adult [facility] [address] [place] [phone] Aminata Moreno MD [facility] 01/19/2025 Telephone [facility] Hematology Oncology [address] [place] [phone] Lamar Cotton MD 01/17/2025 Telephone Adult [address] [phone] Aminata Moreno MD 12/21/2024 Telephone [facility] Hematology Oncology [address] [place] [phone] Lamar Cotton MD 12/20/2024 Nurse Triage Adult [address] [phone] Aminata Moreno MD [facility] 12/13/2024 3:00 PM EDT Office Visit Adult [address] [phone] Aminata Moreno MD Medicare annual wellness visit, subsequent (Primary Dx); History of revision of total replacement of right hip joint; CLL (chronic lymphocytic leukemia) (CMS/HCC V24, CMS/HCC V28); Other iron deficiency anemia; Recurrent squamous cell carcinoma of skin 12/10/2024 2:00 PM EDT Office Visit Adult [address] [phone] Laura Rodriguez PA Bilateral impacted cerumen (Primary Dx) 12/07/2024 10:23 AM EDT - 12/07/2024 11:59 PM EDT Hospital Encounter [facility] Radiation Oncology [address] [place] [phone] Mimi Dawson NP Recurrent squamous cell carcinoma of skin (Primary Dx) Discharge Disposition: Home or Self Care 12/07/2024 Telephone Adult [address] [phone] Aminata Moreno MD Cerumen Impaction 12/02/2024 8:03 AM EDT - 12/02/2024 11:59 PM EDT Hospital Encounter [facility] Infusion Center [address] [place] [phone] Lamar Cotton MD CLL (chronic lymphocytic leukemia) ([facility]/HCC V24, [facility]/HCC V28) (Primary Dx) Discharge Disposition: Home or Self Care 12/01/2024 9:30 AM EDT Telemedicine Infectious Disease - [facility] [address] [place] [address] Neelima Peoples MD Prosthetic joint infection, subsequent encounter (Primary Dx) 11/30/2024 Telephone [facility] Hematology Oncology [address] [place] [phone] Lamar Cotton MD 11/18/2024 Telephone [facility] Radiation Oncology [address] [place] [phone] [place] 11/17/2024 9:58 AM EDT - 11/17/2024 11:59 PM EDT Hospital Encounter [facility] CT Scan [address] [place] [phone] Recurrent squamous cell carcinoma of skin Discharge Disposition: Home or Self Care 11/17/2024 9:57 AM EDT - 11/17/2024 11:59 PM EDT Hospital Encounter [facility] CT Scan [address] [place] [phone] Recurrent squamous cell carcinoma of skin Discharge Disposition: Home or Self Care 11/10/2024 11:45 AM EST Office Visit [facility] Hematology Oncology [address] [place] [phone] Lamar Cotton MD CLL (chronic lymphocytic leukemia) ([facility]/HCC V24, CMS/HCC V28) (Primary Dx); S/P bilateral hip replacements; Anemia, unspecified type from Last 3 Months Immunizations Name Administration [...] eservative (Fluzone; Afluria) 6mo and older 06/09/2014,06/15/2013,07/01/2011 [employer] SARS-CoV-2 COVID-19, mRNA, LNP-S, preservative free 08/06/2023 [...] Site/Laterality Comments OTHER SURGICAL HISTORY Bilateral PROCEDURE: NC ARTHRP ACETBLR/PROX FEM PROSTC AGRFT/ALGRFT; COMMENT: bilateral CORONARY STENT PLACEMENT 2004 PROCEDURE: STENT, CORONARY, ELIZABET COLONOSCOPY 2008 [facility] PROCEDURE: HISTORICAL COLONOSCOPY; COMMENT: Incomplete OTHER SURGICAL HISTORY 03/06/2017 PROCEDURE: COLON CA SCRN NOT HI RSK IND; COMMENT: hemorrhoids; completed to hepatic flexure; repeat in 10 yrs. OTHER SURGICAL HISTORY 03/18/2017 PROCEDURE: RADIOLOGIC EXAM COLON SINGLE CONTRAST STUDY; COMMENT: diverticulosis, but study limited because of redundnat colon, and limited filling of ascending colon OTHER SURGICAL HISTORY 09/03/2022 Right PROCEDURE: HISTORY OTHER; COMMENT: Yuki Piatt- removal of growth - SCC on Rt [...] IMPLANT COSMETIC SURGERY 09/2022 PROCEDURE:COSMETIC SURGERY TONSILLECTOMY 1972 PROCEDURE:TONSILLECTOMY HIP PROSTHESIS REMOVAL 06/08/2024 Right PROCEDURE:HIP PROSTHESIS REMOVAL;COMMENT:Procedu re: REMOVE TOTAL HIP PROSTHESIS; Surgeon: Babak Carrasquillo MD; Location: [facility] ([facility] Service: Orthopedics; Laterality: Right; Medical History Medical [...] hx of CLL (chronic lymphocytic gricel kemia) ([facility] V24, [facility] V28) 08/12/2024 IMPROVING Coronary artery disease invo lving tu[place]ne coronary artery of tu[place] heart without angina pectoris 12/05/2017 DX:Coronary artery disea se involving tu[place] coronary artery of tu[place] heart without angina pectoris Essential hypertension 12/05/2017 DX:Essent ial hypertension Pure hypercholesterolemia 12/05/2017 DX:Pur e hypercholesterolemia Osteoarthritis DX:Osteoarthriti s Chronic constipation DX:Chronic constipation GI (gastrointestinal bleed) D/T HEMORROIDS REQUIRED TRANSFUSION 07/2023 Hemorrhoid DX:Hemorrhoid Anemia DX:Anemia;COMMEN T:HX History of transfusion COMMENT:D /T HEMORROIDS 07/2023 Cancer ([facility] V24, [facility] V28) DX:Cancer (HCC);COMMENT:CLL- NO TX Skin cancer 2022 SCC FACE AND NEC K- GIOVANI, CHEMO, RAD [place] Melanoma ([facility] V24, [facility] V28) 05/2022 DX:Melanoma (HCC) Family History Medical [...] Sign Reading Time Taken Comments Blood Pressure 108/70 01/21/2025 9:58 AM EDT Pulse 54 01/21/2025 9:58 AM EDT Temperature 36.3 ??C (97.3 ??F) 01/21/2025 9:58 AM ED T Respiratory Rate 16 01/21/2025 9:58 AM EDT Oxygen Saturation 100% 01/20/2025 9:00 AM EDT Inhaled Oxygen Concentration - - Weight 81.6 kg (180 lb) 01/21/2025 9:58 AM EDT Height 185 cm (6' 0.84 ) 01/21/2025 9:58 AM EDT Body Mass Index 23.86 01/21/2025 9:58 AM EDT Plan of Treatment Upcoming Encounters Date Type Department Care Team (Late st Contact Info) Description 02/28/2025 10:15 AM EDT Office Visit [facility] Hematology Oncology [address] [place] [phone] Lamar Cotton MD [address] [place] [address] 03/08/2025 10:30 AM EDT Appointment [facility] CT Scan [address] [place] [phone] 03/08/2025 11:00 AM EDT Appointment [facility] CT Scan [address] [place] [phone] 03/16/2025 11:00 AM EDT Telemedicine Infectious Disease - [facility] [address] [place] [phone] Neelima Peoples MD [address] [place] [address] 05/24/2025 1:00 PM EDT Office Visit Adult Medicine - [address] [place] [phone] Aminata Moreno MD [address] [place] [address] Health Maintenance Due Date Last Done Comments Zoster Vaccines (1 of 2) 02/10/2015 12/16/2014 Social Influencers of Health Screening 08/15/2022 COVID-19 Vaccine ( season) 2024 08/06/2023, 08/06/2023, 06/27/2022, Additional history exists Depression Screening 12/13/2025 12/13/2024 Medicare Annual Wellness Visit 12/13/2025 12/13/2024 Falls Risk Assessment 01/20/2026 01/20/2025, 025 Hypertension/CHF/CAD Annual BMP Blood Test 02/01/2026 02/01/2025, 01/25/2025, 01/18/2025, Additional history exists Cholesterol Screening (Lipid Panel) [...] this topic Medical Devices Implanted Type Area Glove Parts Cutter Device Identifier Shelf Expiration Date Model / Serial / Lot Sponge Surgifoam Gel 12 X 7mm - [id number] Implanted:Qty : 1 on 09/14/2024 by Babak Carrasquillo MD at [facility] Hemostasis Right: Hip [employer] [id number] 08/13/20261971 / / [id number] Screw Bone 6.5x35mm Trilogy - [id number] Implanted:Qty : 1 on 09/14/2024 by Babak Carrasquillo MD at [facility] Internal and External Fixation Right: Hip [employer]ESS [employer] 03/30/2034 [id number] / / [id number] Screw Bone 6.5x40mm Trilogy - [id number] Implanted:Qty : 1 on 09/14/2024 by Babak Carrasquillo MD at [facility] Internal and External Fixation Right: Hip [employer] 10/31/2033 [id number] / / [id number] Screw Bone 6.5x25mm Trilogy - [id number] Implanted:Qty : 1 on 09/14/2024 by Babak Carrasquillo MD at [facility] Internal and External Fixation Right: Hip [employer]ESS [employer]ET 03/23/2034 [id number] / / [id number] Screw Bone 6.5x20mm Trilogy - Sna - [id number] Implanted:Qty : 2 on 09/14/2024 by Babak Carrasquillo MD at [facility] Internal and External Fixation Right: Hip [employer] [id number] 02/25/2034 [id number] / NA / [id number] Screw Bone 6.5x20mm Trilogy - [id number] Implanted:Qty : 1 on 09/14/2024 by Babak Carrasquillo MD at [facility] Internal and External Fixation Right: Hip [employer]ESS [employer]ET 03/02/2034 [id number] / / [id number] Screw Bone 6.5x20mm Trilogy - [id number] Implanted:Qty : 1 on 09/14/2024 by Babak Carrasquillo MD at [facility] Internal and External Fixation Right: Hip [employer] [id number] 12/29/2033 [id number] / / [id number] Screw Bone 6.5x40mm Trilogy - Sna - [id number] Implanted:Qty : 1 on 09/14/2024 by Babak Carrasquillo MD at [facility] Internal and External Fixation Right: Hip [employer] [id number] / NA / [id number] Hip Hd Constrn Frdm -6mm - [id number] Implanted:Qty : 1 on 09/14/2024 by Babak Carrasquillo MD at [facility] Joints Hip Right: Hip [employer] [id number] 06/16/2033-162429 / / [id number] Plate Electron Beam Photo Mask Technician Troch Lg 210mm Vitallium W 2 2mm Cabl Stry-How 2750-2-607-36 [id number] Implanted:Qty : 1 on 06/08/2024 by Babak Carrasquillo MD Right: Hip [employer] [id number] 02/19/2028 6704-3-093 / / [id number] Cable Slv Set D-M Bead 2.0mm Vit Med Stry-Howm 9923-4-273-11 4159 Implanted:Qty : 1 on 06/08/2024 by Babak Carrasquillo MD Right: Hip [employer] [id number] 11/17/2028 6704-0-510 / / [id number] Cable Slv Set D-M Bead 2.0mm Vit Med Stry-Howm 7259-9-600-11 4159 Implanted:Qty : 1 on 06/08/2024 by Babak Carrasquillo MD Right: Hip [employer] [id number] 11/17/2028 6704-0-510 / / [id number] Cable Slv Set D-M Bead 2.0mm Vit Med Stry-Howm 1872-5-184-11 4159 Implanted:Qty : 1 on 06/08/2024 by Babak Carrasquillo MD Right: Hip [employer] [id number] 11/17/2028 6704-0-510 / / [id number] Cement Bone Surg Simplex Radiopq Stry-How 0591-1-361-11 4092 Implanted:Qty : 1 on 06/08/2024 by Babak Carrasquillo MD Right: Hip [employer] [id number] 05/08/2026 6191- / / [id number] Cement Bone Surg Simplex Radiopq Stry-Howm 5144-5-083-11 4092 Implanted:Qty : 1 on 06/08/2024 by Babak Carrasquillo MD Right: Hip [employer] [id number] 05/08/2026 6191-1-010 / / [id number] Impl Set Bead 2.0mm Vit Brandt Theodorey-How 2284-4-398-11 4128 Implanted:Qty : 1 on 06/08/2024 by Babak Carrasquillo MD Right: Hip [employer] [id number] 01/19/2029 6704-0-520 / / [id number] Impl Set Bead 2.0mm Vit Brandt Kaminski-How 1653-5-856-11 4128 Implanted:Qty : 1 on 06/08/2024 by Babak Carrasquillo MD Right: Hip [employer] [id number] 01/19/2029 6704-0-520 / / [id number] Impl Set Bead 2.0mm Vit Brandt Kaminski-How 9477-0-297-11 412 Implanted:Qty : 1 on 06/08/2024 by Babak Carrasquillo MD Right: Hip [employer] [id number] 01/09/20294-0-520 / / [id number] Impl Set Bead 2.0mm Vit Brandt Canseco Stry-How 8542-2-183-11 4128 Implanted:Qty : 1 on 06/08/2024 by Babak Carrasquillo MD Right: Hip [employer] [id number] 01/09/20294-0-520 / / [id number] Impl Set Bead 2.0mm Vit Brandt Canseco Stry-How 5107-2-275-11 4128 Implanted:Qty : 1 on 06/08/2024 by Babak Carrasquillo MD Right: Hip [employer] [id number] 10/06/2028 6704-0-520 / / [id number] Cable Slv Set D-M Bead 2.0mm Vit Med Stry-How 4437-1-052-11 4159 Implanted:Qty : 1 on 06/08/2024 by Babak Carrasquillo MD Right: Hip [employer] [id number] 11/17/2028 6704-0-510 / / [id number] [place] Constrained Liner Neutral 36mm Size I Implanted:Qty : 1 on 09/14/2024 by Babak Carrasquillo MD at [facility] Right: Hip [employer] 03/20/2027 [id number] / [id number] / [id number] Implant Record G7 [place] Multihole 68mm Implanted:Qty : 1 on 09/14/2024 by Babak Carrasquillo MD at [facility] Right: Hip [employer]ESS [employer] 04/04/2026 [id number] / NA / [id number] Implant Record Tatianna Con Sz A Std 50mm Implanted:Qty : 1 on 09/14/2024 by Babak Carrasquillo MD at [facility] Right: Hip [employer] [id number] 09/19/2031 11-699933 / NA / [id number] Implant Record Implanted:Qty : 1 on 09/14/2024 by Babak Carrasquillo MD at [facility] Right: Hip [employer] [id number] 11/13/2033-589601 / NA / [id number] Explanted Type Area Glove Parts Cutter Device Identifier Shelf Expiration Date Model / Serial / Lot Bone Cement Explanted:Qty : 2 on 09/14/2024 by Babak Carrasquillo MD at [facility] Bone Cement Right: Hip [employer] 09/15/2024 000 / 000 / 000 Procedures Procedure Name Priority Date/Time Associated Diagnosis Comments CBC WITH AUTO DIFFERENTIAL Routine 02/01/2025 9:52 AM EDT CLL (chronic lymphocytic leukemia) (CMS/HCC V24, CMS/[facility] V28) Anemia, unspecified type TYPE AND SCREEN Routine 02/01/2025 9:52 AM EDT Iron deficiency anemia due to chronic blood loss Recurrent squamous cell carcinoma of skin COMPREHENSIVE METABOLIC PANEL Routine 02/01/2025 9:52 AM EDT CLL (chronic lymphocytic leukemia) (CMS/HCC V24, CMS/HCC V28) Anemia, unspecified type HAPTOGLOBIN Routine 02/01/2025 9:52 AM EDT CLL (chronic lymphocytic leukemia) (CMS/HCC V24, CMS/HCC V28) Anemia, unspecified type CBC AND DIFFERENTIAL Routine 02/01/2025 9:52 AM EDT CLL (chronic lymphocytic leukemia) (CMS/HCC V24, CMS/HCC V28) Anemia, unspecified type MANUAL DIFFERENTIAL - SYSMEX WAM Routine 01/25/2025 10:04 AM EDT CLL (chronic lymphocytic leukemia) (CMS/HCC V24, CMS/HCC V28) Anemia, unspecified type CBC WITH AUTO DIFFERENTIAL Routine 01/25/2025 10:04 AM EDT CLL (chronic lymphocytic leukemia) (CMS/HCC V24, CMS/HCC V28) Anemia, unspecified type TYPE AND SCREEN Routine 01/25/2025 10:04 AM EDT Iron deficiency anemia due to chronic blood loss Recurrent squamous cell carcinoma of skin COMPREHENSIVE METABOLIC PANEL Routine 01/25/2025 10:04 AM EDT CLL (chronic lymphocytic leukemia) (CMS/HCC V24, CMS/HCC V28) Anemia, unspecified type HAPTOGLOBIN Routine 01/25/2025 10:04 AM EDT CLL (chronic lymphocytic leukemia) (CMS/HCC V24, CMS/HCC V28) Anemia, unspecified type CBC AND DIFFERENTIAL Routine 01/25/2025 10:04 AM EDT CLL (chronic lymphocytic leukemia) (CMS/HCC V24, CMS/HCC V28) Anemia, unspecified type TRANSFUSE RED BLOOD CELLS Routine 01/20/2025 12:24 PM EDT CLL (chronic lymphocytic leukemia) (CMS/HCC V24, CMS/HCC V28) TRANSFUSE RED BLOOD CELLS Routine 01/20/2025 9:53 AM EDT CLL (chronic lymphocytic leukemia) (CMS/HCC V24, CMS/HCC V28) PREPARE RBC STAT 01/20/2025 9:08 AM EDT CLL (chronic lymphocytic leukemia) (CMS/HCC V24, CMS/HCC V28) CBC WITH AUTO DIFFERENTIAL Routine 01/18/2025 2:26 PM EDT CLL (chronic lymphocytic leukemia) (CMS/HCC V24, CMS/HCC V28) Anemia, unspecified type TYPE AND SCREEN Routine 01/18/2025 2:26 PM EDT Iron deficiency anemia due to chronic blood loss Recurrent squamous cell carcinoma of skin COMPREHENSIVE METABOLIC PANEL Routine 01/18/2025 2:26 PM EDT CLL (chronic lymphocytic leukemia) (CMS/HCC V24, CMS/HCC V28) Anemia, unspecified type HAPTOGLOBIN Routine 01/18/2025 2:26 PM EDT CLL (chronic lymphocytic leukemia) (CMS/HCC V24, CMS/HCC V28) Anemia, unspecified type CBC AND DIFFERENTIAL Routine 01/18/2025 2:26 PM EDT CLL (chronic lymphocytic leukemia) (CMS/HCC V24, CMS/HCC V28) Anemia, unspecified type RBC MORPHOLOGY REVIEW Routine 01/04/2025 10:40 AM [...] (CMS/HCC V24, CMS/HCC V28) Anemia, unspecified type EXTERNAL XRAY REPORT [...] (CMS/HCC V24, CMS/HCC V28) Anemia, unspecified type NC REMOVAL CERUMEN IMPACTED IRRIGATION/LAVAGE UNILATERAL Routine 12/10/2024 [...] (CMS/HCC V24, CMS/HCC V28) Anemia, unspecified type TRANSFUSE RED BLOOD CELLS Routine 12/02/2024 11:50 AM EDT CLL (chronic lymphocytic leukemia) (CMS/HCC V24, CMS/HCC V28) TRANSFUSE RED BLOOD CELLS Routine 12/02/2024 9:09 AM EDT CLL (chronic lymphocytic leukemia) (CMS/HCC V24, CMS/HCC V28) PREPARE RBC STAT 12/02/2024 [...] 11:20 AM EST CLL (chronic lymphocytic leukemia) ([facility] V24, [facility] V28) Anemia, unspecified type HAPTOGLOBIN Routine 11/09/2024 11:20 AM EST CLL (chronic lymphocytic leukemia) ([facility] V24, [facility] V28) Anemia, unspecified type LACTATE DEHYDROGENASE Routine 11/09/2024 11:20 AM EST CLL (chronic lymphocytic leukemia) ([facility] V24, [facility] V28) BETA 2 MICROGLOBULIN, SERUM Routine 11/09/2024 11:20 AM EST CLL (chronic lymphocytic leukemia) ([facility] V24, [facility] V28) LIPID PANEL Routine 10/28/2022 from Last 3 Months or Most Recently Relevant to Health Maintenance Results * (ABNORMAL) CBC auto differential (02/01/2025 9:52 AM EDT) Only the most recent of11 resultswithin the time period is included. WBC 7.8 4.8 - 10.8 K/mcL LAB HEMETOLOGY METHOD 02/01/2025 1:31 PM EDT [facility] RBC 2.90(L) 4.50 - 5.50 M/mcL LAB HEMETOLOGY METHOD 02/01/2025 1:31 PM EDT [facility] Hemoglobin 10.2(L) 13.5 - 17.5 g/dL LAB HEMETOLOGY METHOD 02/01/2025 1:31 PM EDT [facility] Hematocrit 30.9(L) 42.0 - 54.0 % LAB HEMETOLOGY METHOD 02/01/2025 1:31 PM EDT [facility] 105.1(H) 79.0 - 98.0 FL LAB HEMETOLOGY METHOD 02/01/2025 1:31 PM [facility] MCH 34.7(H) 27.0 - 32.0 pcg LAB HEMETOLOGY METHOD 02/01/2025 1:31 [facility] MCHC 33.0 32.0 - 37.0 g/dL LAB HEMETOLOGY METHOD 02/01/2025 1:31 PM [facility] RDW 16.9(H) 11.0 - 15.0 % LAB HEMETOLOGY METHOD 02/01/2025 1:31 PM [facility] Platelets 91(L) 130 - 400 K/mcL LAB HEMETOLOGY METHOD 02/01/2025 1:31 PM [facility] Comment:reviewed by slide MPV 9.1 7.0 - 11.0 FL LAB HEMETOLOGY METHOD 02/01/2025 1:31 PM [facility] NRBC 0.0 <1.0 % LAB HEMETOLOGY METHOD 02/01/2025 1:31 PM [facility] NRBC Absolute 0.00 <0.10 K/mcL LAB HEMETOLOGY METHOD 02/01/2025 1:[facility] Neutrophils Relative 9.1 % LAB HEMETOLOGY METHOD 02/01/2025 1:31 PM [facility] Comment:This is an appended report. These results have been appended to a previously preliminary verified report. Lymphocytes Relative 87.8 % LAB HEMETOLOGY METHOD 02/01/2025 1:31 PM [facility] Comment:This is an appended report. These results have been appended to a previously preliminary verified report. Monocytes Relative 0.9 % LAB HEMETOLOGY METHOD 02/01/2025 1:31 PM EDT [facility] Comment:This is an appended report. These results have been appended to a previously preliminary verified report. Eosinophils Relative 0.5 % LAB HEMETOLOGY METHOD 02/01/2025 1:31 PM [facility] Comment:This is an appended report. These results have been appended to a previously preliminary verified report. Basophils Relative 0.3 % LAB HEMETOLOGY METHOD 02/01/2025 1:31 PM [facility] Comment:This is an appended report. These results have been appended to a previously preliminary verified report. Immature Granulocytes Relative 1.4 % [facility] 02/01/2025 1:31 PM [facility] Comment:This is an appended report. These results have been appended to a previously preliminary verified report. Neutrophils Absolute 0.71(L) 1.50 - 7.00 K/mcL LAB [facility] 02/01/2025 1:31 PM [facility] Comment:This is an appended report. These results have been appended to a previously preliminary verified report. Lymphocytes Absolute 6.83(H) 1.00 - 5.00 K/mcL LAB [facility] 02/01/2025 1:31 PM [facility] Comment:This is an appended report. These results have been appended to a previously preliminary verified report. Monocytes Absolute 0.07(L) 0.20 - 1.00 K/mcL LAB HEMETOLOGY METHOD 02/01/2025 1:31 PM [facility] Comment:This is an appended report. These results have been appended to a previously preliminary verified report. Eosinophils Absolute 0.04 0.00 - 0.50 K/mcL LAB HEMETOLOGY METHOD 02/01/2025 1:31 PM [facility] Comment:This is an appended report. These results have been appended to a previously preliminary verified report. Basophils Absolute 0.02 0.00 - 0.20 K/mcL LAB HEMETOLOGY METHOD 02/01/2025 1:31 PM EDT [facility] Comment:This is an appended report. These results have been appended to a previously preliminary verified report. Immature Granulocytes Absolute 0.11(H) 0.00 - 0.03 K/[facility] LAB HEMETOLOGY METHOD 02/01/2025 1:31 PM EDT [facility] Comment:This is an appended report. These results have been appended to a previously preliminary verified report. Blood Venous blood specimen / Unknown Venipuncture / Unknown 02/01/2025 9:52 AM EDT 02/01/2025 11:25 AM EDT us Lamar Cotton MD LAB BLOOD ORDERABLES Final R esult Performing Organization Address City/[facility]/ZIP Co de Phone Number [facility] [address] [place] [address], * Type and screen (02/01/2025 9:52 AM EDT) Only the most recent of11 resultswithin the time period is included. ABO Group A 02/07/2025 8:20 AM EDT [facility] Rh Type Positive 02/07/2025 8:20 AM EDT [facility] Antibody Screen Negative 02/07/2025 8:20 AM EDT [facility] Blood Venous blood specimen / Unknown Venipuncture / Unknown 02/01/2025 9:52 AM EDT 02/01/2025 11:22 AM EDT us Lamar Cotton MD LAB BLOOD BANK TEST ORDERABL ES Final Result Performing Organization Address City/[facility]/ZIP Co de Phone Number [facility] [address] [place] [address], [place] [phone] * Haptoglobin (02/01/2025 9:52 AM EDT) Only the most recent of11 resultswithin the time period is included. Haptoglobin 56 16 - 200 mg/dL LAB CHEMISTRY METHOD 02/01/2025 12:58 PM T [facility] Blood Venous blood specimen / Unknown Venipuncture / Unknown 02/01/2025 9:52 AM EDT 02/01/2025 11:26 AM EDT Lamar Cotton MD LAB BLOOD ORDERABLES Final R esult [facility] [address] [place] [address], [place] [phone] * Comprehensive metabolic panel (02/01/2025 9:52 AM EDT) Only the most recent of11 resultswithin the time period is included. Pathologist [facility] Sodium 139 133 - 145 mmol/L LAB CHEMISTRY METHOD 02/01/2025 12:58 PM [facility] Potassium 3.7 3.5 - 5.5 mmol/L LAB CHEMISTRY METHOD 02/01/2025 12:58 PM [facility] Chloride 104 96 - 110 mmol/L LAB CHEMISTRY METHOD 02/01/2025 12:58 PM [facility] CO2 27 21 - 32 mmol/L LAB CHEMISTRY METHOD 02/01/2025 12:58 PM [facility] Anion Gap 8 3 - 11 LAB CHEMISTRY METHOD 02/01/2025 12:58 PM [facility] Glucose 83 70 - 100 mg/dL LAB CHEMISTRY METHOD 02/01/2025 12:58 PM [facility] BUN 16 5 - 25 mg/dL LAB CHEMISTRY METHOD 02/01/2025 12:58 PM [facility] Creatinine 0.84 0.70 - 1.30 mg/dL LAB CHEMISTRY METHOD 02/01/2025 12:58 PM [facility] eGFR 92 >=60 mL/min/1. 73m2 LAB CHEMISTRY METHOD 02/01/2025 12:58 PM [facility] Comment:Calculation based on the Chronic Kidney Disease Epidemiology Collaboration (CKD-EPI) equation refit without adjustment for race. BUN/Creatinine Ratio 19.0 LAB CHEMISTRY METHOD 02/01/2025 12:58 PM [facility] Calcium 8.7 8.5 - 10.5 mg/dL LAB CHEMISTRY METHOD 02/01/2025 12:58 PM [facility] AST (SGOT) 29 10 - 42 unit/L LAB CHEMISTRY METHOD 02/01/2025 12:58 PM [facility] ALT (SGPT) 22 10 - 60 unit/L LAB CHEMISTRY METHOD 02/01/2025 12:58 PM [facility] Alkaline Phosphatase 103 42 - 121 unit/L LAB CHEMISTRY METHOD 02/01/2025 12:58 PM [facility] Total Protein 6.3 6.0 - 8.0 g/dL LAB CHEMISTRY METHOD 02/01/2025 12:58 PM [facility] Albumin 3.7 3.2 - 5.0 g/dL LAB CHEMISTRY METHOD 02/01/2025 12:58 PM [facility] Total Bilirubin 0.6 0.0 - 1.4 mg/dL LAB CHEMISTRY METHOD 02/01/2025 12:58 PM [facility] Blood Venous blood specimen / Unknown Venipuncture / Unknown 02/01/2025 9:52 AM EDT 02/01/2025 11:26 AM EDT us Lamar Cotton MD LAB BLOOD ORDERABLES Final R esult [facility] [address] [place] [address], * (ABNORMAL) Manual differential (01/25/2025 10:04 AM EDT) Only the most recent of2 resultswithin the time period is included. Neutrophils % 13.0 % LAB HEMETOLOGY METHOD 01/25/2025 12:38 PM [facility] Lymphocytes % 85.0 % LAB HEMETOLOGY METHOD 01/25/2025 12:38 PM [facility] Monocytes % 1.0 % LAB HEMETOLOGY METHOD 01/25/2025 12:38 PM [facility] Eosinophils % 1.0 % LAB HEMETOLOGY METHOD 01/25/2025 12:38 PM [facility] Basophils % 0.0 % LAB HEMETOLOGY METHOD 01/25/2025 12:38 PM [facility] Neutrophils Absolute Manual 1.07(L) 1.50 - 7.00 K/mcL LAB HEMETOLOGY METHOD 01/25/2025 12:38 PM [facility] Lymphocytes Absolute 6.97(H) 1.00 - 5.00 K/mcL LAB HEMETOLOGY METHOD 01/25/2025 12:38 PM [facility] Monocytes Absolute Manual 0.08(L) 0.20 - 1.00 K/mcL LAB HEMETOLOGY METHOD 01/25/2025 12:38 PM [facility] Eosinophils Absolute Manual 0.08 0.00 - 0.50 K/mcL LAB HEMETOLOGY METHOD 01/25/2025 12:38 PM [facility] Basophils Absolute Manual 0.00 0.00 - 0.20 K/mcL LAB HEMETOLOGY METHOD 01/25/2025 12:38 PM [facility] Rbc Morphology See comment( A) Consistent with indices, Normal for [place] LAB HEMETOLOGY METHOD 01/25/2025 12:38 PM [facility] Comment:RBC: Morphology agre es with CBC Platelet Morphology - WAM See Note(A) Normal LAB HEMETOLOGY METHOD 01/25/2025 12:38 PM EDT [facility] Comment:PLT: Normal Blood Venous blood specimen / Unknown Venipuncture / Unknown 01/25/2025 10:04 AM EDT 01/25/2025 11:18 AM EDT Lamar Cotton MD LAB BLOOD ORDERABLES Final R esult [facility] [address] [place] [address], [place] [phone] * Transfuse RBC (01/20/2025 2:26 PM EDT) Only the most recent of4 resultswithin the time period is included. us Lamar Cotton MD BLOOD TRANSFUSION ORDERABLES Final Result * Prepare RBC: 2 Units (01/20/2025 9:08 AM EDT) Only the most recent of2 resultswithin the time period is included. Product Code [id number] [facility]2025 9:[facility] Number [id number] 01/21/20 9:55 AM EDT [facility] Crossmatch Compatible 01/20/2025 9:13 AM EDT [facility] Dispense Status Transfused 01/20/2025 9:55 AM EDT [facility] Unit ABO Rh OPOS 01/20/2025 9:55 AM EDT [facility] Unit Expiration Date Time [id number] 01/20/2025 9:55 AM [facility] Unit Blood Type 5100 01/20/2025 9:55 AM [facility] Product Code [id number] 01/20/2025 12:26 PM EDT [facility] Unit Number [id number] 01/21/20 12:26 PM EDT [facility] Crossmatch Compatible 01/20/2025 9:13 AM EDT [facility] Dispense Status Transfused 01/20/2025 12:26 PM EDT [facility] Unit ABO Rh OPOS 01/20/2025 12:26 PM EDT [facility] Unit Expiration Date Time [id number] 01/20/2025 12:26 PM EDT [facility] Unit Blood Type 5100 01/20/2025 12:26 PM EDT [facility] Blood Venous blood specimen / Unknown 01/20/2025 9:08 AM EDT 01/18/2025 4:40 PM EDT Lamar Cotton MD BLOOD BANK PRODUCT ORDERABLE S Final Result [facility] [address] [place] [address], * (ABNORMAL) RBC morphology review (01/04/2025 10:40 AM EDT) Only the most recent of2 resultswithin the time period is included. Rbc Morphology Consistent with indices Consistent with indices, Normal for LAB HEMETOLOGY METHOD 01/04/2025 1:25 PM EDT [facility] Platelet Morphology - WAM See Note(A) Normal LAB HEMETOLOGY METHOD 01/04/2025 1:25 PM EDT [facility] Comment:PLT: Normal Blood Venous blood specimen / Unknown Venipuncture / Unknown 01/04/2025 10:40 AM EDT 01/04/2025 11:29 AM EDT Lamar Cotton MD LAB BLOOD ORDERABLES Final [facility] esult [facility] [address] [place] [address], * External Xray Report (12/21/2024) Only the most recent of4 resultswithin the time period is included. Anatomical Region Laterality Modality Radiographic Bernadette ging Provider [facility] XR PROCEDURES Final Result * External Colonoscopy Report (12/20/2024) Anatomical Region Laterality Modality Endoscopy Provider [facility]~PROCEDURE ORDERABLES Final Result * External CT Report (12/20/2024) Only the most recent of2 resultswithin the time period is included. Anatomical Region Laterality Modality Computed Tomogra phy Provider [facility] IMG CT PROCEDURES Final Result * NC REMOVAL CERUMEN IMPACTED IRRIGATION/LAVAGE UNILATERAL (12/10/2024 2:12 [...] IN CLINIC/BEDSIDE ORDERABL ES Final Result * CT Neck Soft Tissue w Contrast (11/17/2024 10:40 AM EDT) Anatomical Region Laterality Modality Head and Neck Computed Tomogra phy 11/17/2024 1:50 PM EDT Impressions 11/17/2024 1:59 PM EDT Impression: No evidence of recurrent mass or cervical lymphadenopathy. Telealbert GOLDSTEIN ([id number]) -------- FINAL REPORT -------- Dictated By: Jailyn Ballesteros Dictated Date: 11/17/2024 13:50 ET Assigned Physician: Jailyn Ballesteros Reviewed and Electronically Signed By: Jailyn Ballesteros Signed Date: 11/17/2024 13:59 ET Workstation ID: [id number] Transcribed By: Self Edit Transcribed Date: 11/17/2024 13:50 ET Narrative 11/17/2024 1:59 PM EDT History: Skin carcinoma right cheek, with lymph nodes, status post radiation treatment. Surveillance. Comparison: 08/18/24, 12/22/23, 02/19/23 Technique: Helical volumetric imaging of the neck was performed during the uneventful intravenous administration of 90 cc Isovue-370. DLP: 397.83 mGy/cm [employer] VCT Iterative reconstruction technique Findings: Surgical clips [...] of 90 cc Isovue-370. DLP: 397.83 mGy/cm [employer] VCT Iterative reconstruction technique Findings: Surgical clips [...] recurrent mass or cervical lymphadenopathy. [employer] [place] ([id number]) -------- FINAL REPORT -------- Dictated By: Jailyn Ballesteros Dictated Date: 11/17/2024 13:50 ET Assigned Physician: Jailyn Ballesteros Reviewed and Electronically Signed By: Jailyn Ballesteros Signed Date: 11/17/2024 13:59 ET Workstation ID: [id number] Transcribed By: Self Edit Transcribed Date: 11/17/2024 [...] 3. No developing thoracic lymphadenopathy. Telerad PA ([id number]) -------- FINAL REPORT -------- Dictated By: Jailyn Ballesteros Dictated Date: 11/17/2024 13:34 ET Assigned Physician: Jailyn Ballesteros Reviewed and Electronically Signed By: Jailyn Ballesteros Signed Date: 11/17/2024 13:49 ET Workstation ID: [id number] Transcribed By: Self Edit Transcribed Date: 11/17/2024 13:34 ET Narrative 11/17/2024 1:49 PM EDT History: Follow-up lung opacities noted on PET/CT. Personal history of squamous cell carcinoma of the face, status post radiation therapy. Comparison: 08/18/24, 04/14/24, 12/22/23, PET/CT 09/23/23 Technique: Helical volumetric imaging of the thorax was performed during the uneventful intravenous administration of 90 cc Isovue-370. DLP: 523.77 mGy/cm [employer] VCT Iterative reconstruction technique Findings: The [...] 90 cc Isovue-370. DLP: 523.77 mGy/cm [employer] VCT Iterative reconstruction technique Findings: The [...] 3. No developing thoracic lymphadenopathy. Telerad PA ([id number]) -------- FINAL REPORT -------- Dictated By: Jailyn Ballesteros Dictated Date: 11/17/2024 13:34 ET Assigned Physician: Jailyn Ballesteros Reviewed and Electronically Signed By: Jailyn Ballesteros Signed Date: 11/17/2024 13:49 ET Workstation ID: [id number] Transcribed By: Self Edit Transcribed Date: 11/17/2024 13:34 ET us Mimi Dawson NP IMG CT PROCEDURES Fin al Result * (ABNORMAL) Lactate dehydrogenase (11/09/2024 11:20 AM EST) LDH 1,218(H) 120 - 246 unit/L LAB CHEMISTRY METHOD 11/09/2024 2:12 PM EST [facility] Blood Venous blood specimen / Unknown Venipuncture / Unknown 11/09/2024 11:20 AM EST 11/09/2024 12:19 PM EST Lamar Cotton MD LAB BLOOD ORDERABLES Final R esult Performing Organization Address City/[facility]/ZIP Co de Phone Number [facility] [address] [place] [address], [place] [phone] * (ABNORMAL) Beta 2 microglobulin, serum (11/09/2024 11:20 AM EST) [facility] Beta-2 Microglobulin 2.9(H) 0.7 - 1.8 mg/L LAB CHEMISTRY METHOD 11/09/2024 2:12 PM EST [facility] Blood Venous blood specimen / Unknown Venipuncture / Unknown 11/09/2024 11:20 AM EST 11/09/2024 12:19 PM EST Lamar Cotton MD LAB BLOOD ORDERABLES Final R esult Performing Organization Address [facility] Co de Phone Number [facility] [address] [place] [address], [place] [phone] * Lipid panel (10/28/2022) [facility] LDL/HDL Ratio 3 <=5 Triglycerides 94 <=150 mg/dL Cholesterol 127 <=200 mg/dL HDL 44 >=40 mg/dL LDL Cholesterol 65 <=100 mg/dL Blood Venous blood specimen / Unknown Historical Provider LAB BLOOD ORDERABLES Jennifer l Result from Last 3 Months or Most Recently Relevant to Health Maintenance Insurance MEDICARE [facility] Advance Directives * Full Code - Confirmed [...] currently active code status orders. Care Teams Clinical Quality Manager Relationship Specialty Start Date End Date Aminata Moreno MD [address] [place] [id number] PCP - General Internal Medicine 10/21/24
== END 2025-02-08 15:40 | disposition home or self-care (01) ==
LOC: HO.HGS 15:13
PROVIDERS: PCP Family Medicine; Visit Provider Surgery
DX: Z90.49 Acquired absence of other specified parts of digestive tract (principal); Z93.3 Colostomy status
CPT/HCPCS: 99024

== ENCOUNTER → 2025-02-08 15:12 | Outpatient (BNVA) | payer MEDICARE, SELFPAY | PROVIDERS: PCP Family Medicine; Visit Provider Surgery | DX: Z48.815 Encounter for surgical aftercare following surgery on the digestive system (principal); Z90.49 Acquired absence of other specified parts of digestive tract; Z93.3 Colostomy status | CPT/HCPCS: 99212 ==

== ENCOUNTER 2025-03-14 10:04 | Outpatient (AMB) | payer MEDICARE, SELFPAY ==
--- NOTE | 2025-03-14 10:06 | MHC.OFFVIS ---
Vital Signs 03/14/25 10:12 Height 5 ft 6 in Weight 182 lb BMI 29.4 BP 118/74 Blood Pressure Location Rt brachial Position Sitting Intake Visit Reasons: discuss reversal Intake Note: Patient is seen in office for one month for follow-up, discuss closure of colostomy. Marketing Database Coordinator Required: No Pediatric Assistant: Pediatric Assistant Present Allergies No Known Allergies Allergy (Verified 03/14/25 10:11) Medication List - Last Reconciled 03/14/25 by Laura Aguilera LPN acetaminophen (Tylenol) 650 mg PO Q6H PRN amlodipine 10 mg PO DAILY atorvastatin 40 mg PO DAILY bisacodyl (Dulcolax (bisacodyl)) 5 mg PO BEDTIME PRN carvedilol 6.25 mg PO BID cefadroxil 500 mg PO BID cetirizine 10 mg PO BEDTIME PRN cyanocobalamin (vitamin B-12) 1,000 mcg PO DAILY docusate sodium (Colace) 100 mg PO BID ferrous sulfate (iron) 325 mg PO DAILY fexofenadine 180 mg PO DAILY losartan 100 mg PO DAILY methocarbamol 750 mg PO Q8H PRN multivitamin 1 tab PO DAILY oxycodone 5 mg PO Q8H PRN oxycodone 5 mg PO Q6H PRN polyethylene glycol 3350 17 grams PO DAILY sennosides (senna) 8.6 mg PO DAILY Do you need a note to return to daycare/school/sports/work: No HPI Comments Details: 74-year-old male patient returning following a hospitalization for 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 Banerjee on 01/09/2025. He tolerated the procedure well and was subsequently discharged home on 01/15/2025. Since his discharge he feels much improved and is doing well with the colostomy care. His appetite has improved although he did lose weight following the surgery. He reports a prior colonoscopy approximately 3 years ago at an outside institution and was told that this was normal. He denies any bleeding or discharge from the incision. He returns today for wound check and discussion regarding closure of colostomy. [facility] Medical History Coronary artery disease Chronic anemia Basal cell carcinoma Squamous cell carcinoma of face CLL (chronic lymphocytic leukemia) HLD (hyperlipidemia) HTN (hypertension) Surgical History Status post Mohs surgery for basal cell carcinoma Hx of colectomy (01/09/25) H/O neck surgery H/O heart artery stent History of total right hip replacement History of total left hip replacement History of facial surgery Social History Household Members: Significant Other [facility] Are you a primary personal care assistant to a significant other at home: No Do you presently have visiting nurse or other home services: No Patient Tobacco Use Status: Never used Tobacco Substance Use Type: Marijuana service: No Review of Systems Const All systems reviewed & are unremarkable except as noted in HPI and below Physical Exam Vital Signs: Last Vital Signs BP 118/74 03/14/25 10:12 BMI result Body Mass Index 29.4 Const General: no acute distress Nutritional Appearance: well nourished Orientation/consciousness: patient oriented x3 Limitations: no limitations HEENT Other: Right face reconstruction with skin graft following excision of skin cancer Resp Effort & Inspection: normal respiratory effort, no audible wheezes, no cough and no respiratory distress GI Other: Well-healed midline incision and ostomy site. No evidence of hernia are appreciated. Inspection: Yes normal to inspection Palpation (GI): Soft to palpation, nontender, no guarding and not rigid Neuro General: patient oriented x3 Extrem Other: No edema Assessment & Plan Assessment & Plan (1) S/P left colectomy: Code(s): Z90.49 - Acquired absence of other specified parts of digestive tract Category: Surgical (2) S/P colostomy: Code(s): Z93.3 - Colostomy status Category: Surgical Plan Patient continues to do well following a sigmoid colectomy with end-colostomy for sigmoid volvulus. His wounds are clean and intact. Ashley removed today. We discussed closure of colostomy which typically is delayed for approximately 3 months following the surgery. He continues to do well with no ongoing abdominal symptoms. He reports gaining some weight since his last visit. 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 He would like to have the closure of colostomy prior to undergoing radiation therapy. I reviewed the procedure, risks, and alternatives in detail regarding the closure of colostomy and he consents to the surgery. This will be scheduled after 04/11/2025 as a short-stay admit. I reviewed the bowel prep which he would take the day prior to surgery and review of the eras protocol as well. He knows that he can have a clear protein drink up to 3 hours prior to surgery. Medications: New erythromycin administer at 1 PM, 2 PM, and 11 PM the day prior to surgery 1 g (2 x 500 mg) PO TID 6 tabs 0RF Z90.49 - Acquired absence of other specified parts of digestive tract, Z93.3 - Colostomy status neomycin administer at 1 PM, 2 PM, and 11 PM the day prior to surgery 1 g (2 x 500 mg) PO TID 6 tabs 0RF 3 doses Z90.49 - Acquired absence of other specified parts of digestive tract, Z93.3 - Colostomy status polyethylene glycol 3350 (Miralax) Mixed entire bottle polyethylene glycol with 2 bottles of Gatorade (not red colored). Drink 1 cup every 15 minutes starting at 09:00 day prior to surgery until either completed or when bowels are clear. 17 grams PO DAILY 238 grams 0RF Coding Level of Care Code Global (40515) Diagnoses S/P left colectomy Z90.49 S/P colostomy Z93.3
[2025-03-14 10:12] VITALS: BP 118/74; BMI 29.4
--- OUTSIDE RECORDS SUMMARY | 2025-03-14 10:46 | XMS_ITS | Encounter Summary ---
Author Organization [facility]ly [facility] Address [address] [place] [address] Care Team Providers Care Premix Concrete Batcher Name Role Phone Indu Acosta MD Primary Care Provider Giovanna Thapa MD Unavailable Suzanna Mcgill DO Primary Care Provider [phone] Reason for Visit * Reason Comments Medication Refill Encounter Details Date Type Department Care Team (Late st Contact Info) Description 03/01/2022 Refill [facility] [address] [place] [phone] Olivia Zavaleta, TRISTON [address] [place] [id number] Medication Refill Social History Tobacco Use Types [...] Care Team (Late st Contact Info) Description 03/24/2025 3:20 PM EDT Office Visit [facility] [place] [address] [place] [phone] Giovanna Thapa MD [address] [place], [place] [address] [place] [address] documented as of this encounter Visit Diagnoses Diagnosis Hypertension, unspecified type documented in this encounter Care Teams Premix Concrete Batcher Relationship Specialty Start Date End Date Indu Acosta MD [address] [place] [address] PCP - General 08/29/21 03/26/23 Suzanna Mcgill DO [address] [place] [address] PCP - General Family Medicine 03/27/23 Giovanna Thapa MD [address] [place] [id number] Primary Indoor Plant Technician Cardiovascular Disease 08/29/21 documented as of this encounter
--- OUTSIDE RECORDS SUMMARY | 2025-03-14 10:46 | XMS_ITS | Clinical Summary ---
Author Organization [facility] Address [address] [place] [address] Phone Care Team Providers Care Geneticist Name Role Phone Aminata Moreno MD Primary [...] with meals. 60 capsule 11 5 Active amLODIPine (NORVASC) 10 mg tablet Take 1 tablet (10 mg total) by mouth 1 (one) time each day. 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 Head and neck cancer [place] [place] [facility] V28) 09/03/2022 Assessment & Plan (08/25/2024 12:48 PM EST): CT head and neck performed 08/18/2024: All negative for mass, metastatic disease, lymphadenopathy. Followed closely by radiation oncology. See note below. Infrarenal abdominal aortic aneurysm (AAA) without rupture ([facility] V24) 08/27/2022 Overview (08/17/2024): PET/CT TUMOR IMAGING SKULL BASE TO MID-THIGH ? 08/26/2022 Moderate calcified and sclerosis of the aortoiliac tree with fusiform infrarenal aneurysm measuring 3.1 cm Hyponatremia 11/12/2021 CLL (chronic lymphocytic gricel kemia) ([facility] V24, [facility] V28) 01/13/2019 Overview (05/21/2024): Dr Cotton Assessment [...] outpatient management. Coronary artery disease invo lving round valley coronary artery of round valley heart without angina pectoris 12/05/2017 Assessment & [...] Encounters Date Type Department Care Team Description 03/10/2025 10:01 AM EDT - 03/10/2025 11:59 PM EDT Hospital Encounter [facility] CT Scan [address] [place] [phone] Recurrent squamous cell carcinoma of skin Discharge Disposition: Home or Self Care 03/08/2025 10:26 AM EDT - 03/08/2025 11:59 PM EDT Hospital Encounter [facility] CT Scan [address] [place] [phone] Recurrent squamous cell carcinoma of skin Discharge Disposition: Home or Self Care 02/28/2025 10:15 AM EDT Office Visit [facility] Hematology Oncology [address] [place] [phone] Lamar Cotton MD CLL (chronic lymphocytic leukemia) ([facility] V24, [facility] V28) (Primary Dx); Other non-autoimmune hemolytic anemias ([facility] V24, [facility] V28); Head and neck cancer ([facility] V24, [facility] V28) 02/23/2025 Telephone Adult Medicine [address] [phone] Aminata Moreno MD Faxed Order D/C Summary PT Goals met 02/17/2025 Telephone Adult [address] [phone] Aminata Moreno MD vna call 01/27/2025 Billing Patient Not Present Adult [address] [phone] Aminata Moreno MD Encounter for surgical aftercare following surgery of digestive system (Primary Dx); Encounter for attention to colostomy ([facility] V24, [facility] V28); Essential (primary) hypertension; Chronic lymphocytic leukemia of B-cell type not having achieved remission ([facility] V24, [facility] V28); Anemia in neoplastic disease; Atherosclerosis of round valley coronary artery without angina pectoris, unspecified whether round valley or transplanted heart 01/26/2025 Telephone Adult [address] [phone] Aminata Moreno MD Forms/questionnaires ([facility] 01/17/2025-03/17/2025) 01/24/2025 Telephone Adult [facility] [address] [place] [phone] Aminata Moreno MD FYI 01/21/2025 10:00 AM EDT Office Visit Adult [address] [phone] Aminata Moreno MD Hospital discharge follow-up (Primary Dx); Colostomy in place [place] [place] [facility] [place] Other iron deficiency anemia; CLL (chronic lymphocytic leukemia) [place] [place] [facility] V28); Primary hypertension; S/P drug eluting coronary stent placement 01/20/2025 8:45 AM EDT Office Visit [facility] Hematology Oncology [address] [place] [phone] Lamar Cotton MD CLL (chronic lymphocytic leukemia) [place] [place] [facility] [place] (Primary Dx); Other non-autoimmune hemolytic anemias [place] [place], [facility] V28) 01/20/2025 8:44 AM EDT - 01/20/2025 11:59 PM EDT Hospital Encounter [facility] [address] [place] [phone] Lamar Cotton MD CLL (chronic lymphocytic leukemia) [place] [place] [facility] [place] (Primary Dx); Anemia, unspecified type Discharge Disposition: Home or Self Care 01/19/2025 Telephone Adult [address] [phone] Aminata Moreno MD A 01/19/2025 Telephone [facility] Hematology Oncology [address] [place] [phone] Lamar Ctoton MD 01/17/2025 Telephone Adult Medicine - [place] [address] [place] [phone] Aminata Moreno MD 12/21/2024 Telephone [facility] Hematology Oncology [address] [place] [phone] Lamar Cotton MD 12/20/2024 Nurse Triage Adult [facility] [address] [place] [phone] Aminata Moreno MD Constipation 12/13/2024 3:00 PM EDT Office Visit Adult Medicine [facility] [address] [place] [phone] Aminata Moreno MD Medicare annual wellness visit, subsequent (Primary Dx); History of revision of total replacement of right hip joint; CLL (chronic lymphocytic leukemia) (CMS/HCC V24, CMS/HCC V28); Other iron deficiency anemia; Recurrent squamous cell carcinoma of skin from Last 3 Months Immunizations Name Administration [...] HISTORY 09/03/2022 Right PROCEDURE: HISTORY OTHER; COMMENT: [facility]- removal of growth - SCC on [...] HIP PROSTHESIS; Surgeon: Babak Carrasquillo MD; Location: [facility] Service: Orthopedics; [...] hx of CLL (chronic lymphocytic gricel kemia) ([facility] V24, [facility] V28) 08/12/2024 IMPROVING Coronary artery disease invo lving round valley coronary artery of round [place] heart without angina pectoris 12/05/2017 DX:Coronary artery disea se involving round valley coronary artery of round [place] heart without angina pectoris Essential hypertension 12/05/2017 DX:Essent ial hypertension Pure hypercholesterolemia 12/05/2017 DX:Pur e hypercholesterolemia Osteoarthritis DX:Osteoarthriti s Chronic constipation DX:Chronic constipation GI (gastrointestinal bleed) D/T HEMORROIDS REQUIRED TRANSFUSION 07/2023 Hemorrhoid DX:Hemorrhoid Anemia DX:Anemia;COMMEN T:HX History of transfusion COMMENT:D /T HEMORROIDS 07/2023 Cancer ([facility]/HCC V24, [facility] V28) DX:Cancer (HCC);COMMENT:CLL- NO TX Skin cancer 2022 SCC FACE AND NEC K- GIOVANI, CHEMO, RAD [place] Melanoma ([facility]/HCC V24, [facility] V28) 05/2022 DX:Melanoma (HCC) Family History Medical [...] Sign Reading Time Taken Comments Blood Pressure 124/60 02/28/2025 10:25 AM EDT Pulse 61 02/28/2025 10:25 AM EDT Temperature 36.3 C (97.4 F) 02/28/2025 10:25 AM EDT Respiratory Rate 16 01/21/2025 9:58 AM EDT Oxygen Saturation 100% 02/28/2025 10:25 AM EDT Inhaled Oxygen Concentration - - Weight 84.4 kg (186 lb) 02/28/2025 10:25 AM EDT Height 185 cm (6' 0.84 ) 01/21/2025 9:58 AM EDT Body Mass Index 24.65 01/21/2025 9:58 AM EDT Plan of Treatment Upcoming Encounters Date Type Department Care Team (Late st Contact Info) Description 03/16/2025 11:00 AM EDT Telemedicine Infectious Disease - [facility] [address] [place] [phone] Neelima Peoples MD [address] [place] [address] 05/16/2025 11:00 AM EDT Office Visit [facility] Hematology Oncology [address] [place] [phone] Lamar Cotton MD [address] [place] [address] 05/24/2025 1:00 PM EDT Office Visit Adult Medicine - [place] [address] [place] [phone] Aminata Moreno MD [address] [place] [address] Health Maintenance Due Date Last Done Comments Zoster Vaccines (1 of 2) 02/10/2015 12/16/2014 Social Influencers of Health Screening 08/15/2022 COVID-19 Vaccine ( season) 2024 08/06/2023, 08/06/2023, 06/27/2022, Additional history exists Influenza Vaccine (#1) 2025 , 08/06/2023, 08/06/2023, Additional history exists Depression Screening 12/13/2025 12/13/2024 Medicare Annual Wellness Visit 12/13/2025 12/13/2024 Falls Risk Assessment 01/20/2026 01/20/2025, 025 Hypertension/CHF/CAD Annual BMP Blood Test 02/28/2026 02/28/2025, 02/15/2025, 02/01/2025, Additional history exists Cholesterol Screening (Lipid Panel) [...] 04/02/2011 RSV Immunization Adult Patients Completed 09/10/2023 HIB Vaccines Aged Out No longer eligi [...] this topic Medical Devices Implanted Type Area Crossing Guard Device Identifier Shelf Expiration Date Model / Serial / Lot Sponge Surgifoam Gel 12 X 7mm - [id number] Implanted:Qty : 1 on 09/14/2024 by Babak Carrasquillo MD at [facility] Hemostasis Right: Hip [employer] [id number] 08/13/20261971 / / [id number] Screw Bone 6.5x35mm Trilogy - [id number] Implanted:Qty : 1 on 09/14/2024 by Babak Carrasquillo MD at [facility] Internal and External Fixation Right: Hip [employer] 03/30/2034 [id number] / / [id number] Screw Bone 6.5x40mm Trilogy - [id number] Implanted:Qty : 1 on 09/14/2024 by Babak Carrasquillo MD at [facility] Internal and External Fixation Right: Hip [employer] 10/31/2033 [id number] / / [id number] Screw Bone 6.5x25mm Trilogy - [id number] Implanted:Qty : 1 on 09/14/2024 by Babak Carrasquillo MD at [facility] Internal and External Fixation Right: Hip [employer] 03/23/2034 [id number] / / [id number] Screw Bone 6.5x20mm Trilogy - Sna - [id number] Implanted:Qty : 2 on 09/14/2024 by Babak Carrasquillo MD at [facility] Internal and External Fixation Right: Hip [employer] [id number] 02/25/2034 [id number] / NA / [id number] Screw Bone 6.5x20mm Trilogy - [id number] Implanted:Qty : 1 on 09/14/2024 by Babak Carrasquillo MD at [facility] Internal and External Fixation Right: Hip [employer] 03/02/2034 [id number] / / [id number] Screw Bone 6.5x20mm Trilogy - [id number] Implanted:Qty : 1 on 09/14/2024 by Babak Carrasquillo MD at [facility] Internal and External Fixation Right: Hip [employer] [id number] 12/29/2033 [id number] / / [id number] Screw Bone 6.5x40mm Trilogy - Sna - [id number] Implanted:Qty : 1 on 09/14/2024 by Babak Carrasquillo MD at [facility] Internal and External Fixation Right: Hip [employer] [id number] / NA / [id number] Hip Hd Constrn Frdm -6mm - [id number] Implanted:Qty : 1 on 09/14/2024 by Babak Carrasquillo MD at [facility] Joints Hip Right: Hip [employer] [id number] 06/16/2033 [id number] / / [id number] Plate Recruiter Specialist Troch Lg 210mm Vitallium W 2 2mm Cabl Stry-How 6725-0-209-36 3390 Implanted:Qty : 1 on 06/08/2024 by Babak Carrasquillo MD Right: Hip [employer] [id number] 02/19/2028 6704-3-093 / / [id number] Cable Slv Set D-M Bead 2.0mm Vit Med Stry-How 7294-2-421-11 4159 Implanted:Qty : 1 on 06/08/2024 by Babak Carrasquillo MD Right: Hip [employer] [id number] 11/17/2028 6704-0-510 / / [id number] Cable Slv Set D-M Bead 2.0mm Vit Med Stry-How 8437-8-122-11 4159 Implanted:Qty : 1 on 06/08/2024 by Babak Carrasquillo MD Right: Hip [employer] [id number] 11/17/2028 6704-0-510 / / [id number] Cable Slv Set D-M Bead 2.0mm Vit Med Stry-Howm 4257-3-335-11 4159 Implanted:Qty : 1 on 06/08/2024 by Babak Carrasquillo MD Right: Hip [employer] [id number] 11/17/2028 6704-0-510 / / [id number] Cement Bone Surg Simplex Radiopq Stry-Howm 9575-6-508- 4092 Implanted:Qty : 1 on 06/08/2024 by Babak Carrasquillo MD Right: Hip [employer] [id number] 05/08/2026 6191- / / [id number] Cement Bone Surg Simplex Radiopq Stry-Howm 9124-7-401- 4092 Implanted:Qty : 1 on 06/08/2024 by Babak Carrasquillo MD Right: Hip [employer] [id number] 05/08/2026 [id number] / / [id number] Impl Set Bead 2.0mm Vit Brandt Canseco Stry-How 8895-9-661-11 4128 Implanted:Qty : 1 on 06/08/2024 by Babak Carrasquillo MD Right: Hip [employer] [id number] 01/19/2029 6704-0-520 / / [id number] Impl Set Bead 2.0mm Vit Dall Ajith Stry-Howm 7052-7-470-11 4128 Implanted:Qty : 1 on 06/08/2024 by Babak Carrasquillo MD Right: Hip [employer] [id number] 01/19/2029 6704-0-520 / / [id number] Impl Set Bead 2.0mm Vit Brandt Canseco Stry-How 2474-5-302-11 4128 Implanted:Qty : 1 on 06/08/2024 by Babak Carrasquillo MD Right: Hip [employer] [id number] 01/09/2029 6704-0-520 / / [id number] Impl Set Bead 2.0mm Vit Brandt Canseco [facility] 4378-1-716-11 4128 Implanted:Qty : 1 on 06/08/2024 by Babak Carrasquillo MD Right: Hip [employer] [id number] 01/09/2029 6704-0-520 / / [id number] Impl Set Bead 2.0mm Vit Brandt Canseco [facility] 8266-6-628-11 4128 Implanted:Qty : 1 on 06/08/2024 by Babak Carrasquillo MD Right: Hip [employer] [id number] 10/06/2028 6704-0-520 / / [id number] Cable Slv Set D-M Bead 2.0mm Vit Rishi [facility] 6290-2-354-11 4159 Implanted:Qty : 1 on 06/08/2024 by Babak Carrasquillo MD Right: Hip [employer] [id number] 11/17/2028 670-0-510 / / [id number] [place] Constrained Liner Neutral 36mm Size I Implanted:Qty : 1 on 09/14/2024 by Babak Carrasquillo MD at [facility] Right: Hip [employer] 03/20/2027 [id number] / [id number] / [id number] Implant Record G7 [place] Multihole 68mm Implanted:Qty : 1 on 09/14/2024 by Babak Carrasquillo MD at [facility] Right: Hip [employer] 04/04/2026 [id number] / NA / [id number] Implant Record Tatianna Con Sz A Std 50mm Implanted:Qty : 1 on 09/14/2024 by Babak Carrasquillo MD at [facility] Right: Hip [employer] [id number] 09/19/2031 11-159324 / NA / [id number] Implant Record Implanted:Qty : 1 on 09/14/2024 by Babak Carrasquillo MD at [facility] Right: Hip [employer] [id number] 11/13/2033 11-856974 / NA / [id number] Explanted Type Area Crossing Guard Device Identifier Shelf Expiration Date Model / Serial / Lot Bone Cement Explanted:Qty : 2 on 09/14/2024 by Babak Carrasquillo MD at [facility] Bone Cement Right: Hip [employer] 09/15/2024 000 / 000 / 000 Procedures Procedure Name Priority Date/Time Associated Diagnosis Comments CT NECK SOFT TISSUE W CONTRAST Routine 03/10/2025 10:21 AM EDT Recurrent squamous cell carcinoma of skin CT CHEST W CONTRAST Routine 03/08/2025 1 0:36 AM EDT Recurrent squamous cell carcinoma of skin MANUAL DIFFERENTIAL - SYSMEX WAM Routine 02/28/2025 10:57 AM EDT CLL (chronic lymphocytic leukemia) (CMS/HCC V24, CMS/HCC V28) Other non-autoimmune hemolytic anemias (CMS/HCC V24, CMS/HCC V28) CBC WITH AUTO DIFFERENTIAL Routine 02/28/2025 10:57 AM EDT CLL (chronic lymphocytic leukemia) (CMS/HCC V24, CMS/HCC V28) Other non-autoimmune hemolytic anemias (CMS/HCC V24, CMS/HCC V28) TYPE AND SCREEN Routine 02/28/2025 10:57 AM EDT CLL (chronic lymphocytic leukemia) (CMS/HCC V24, CMS/HCC V28) Other non-autoimmune hemolytic anemias (CMS/HCC V24, CMS/HCC V28) HAPTOGLOBIN Routine 02/28/2025 10:57 AM EDT CLL (chronic lymphocytic leukemia) (CMS/HCC V24, CMS/HCC V28) Other non-autoimmune hemolytic anemias (CMS/HCC V24, CMS/HCC V28) RETICULOCYTE COUNT Routine 02/28/2025 10 :57 AM EDT CLL (chronic lymphocytic leukemia) (CMS/HCC V24, CMS/HCC V28) Other non-autoimmune hemolytic anemias (CMS/HCC V24, CMS/HCC V28) CBC AND DIFFERENTIAL Routine 02/28/2025 10:57 AM EDT CLL (chronic lymphocytic leukemia) (CMS/HCC V24, CMS/HCC V28) Other non-autoimmune hemolytic anemias (CMS/HCC V24, CMS/HCC V28) COMPREHENSIVE METABOLIC PANEL Routine 02/28/2025 10:57 AM EDT CLL (chronic lymphocytic leukemia) (CMS/HCC V24, CMS/HCC V28) Anemia, unspecified type CBC WITH AUTO DIFFERENTIAL Routine 02/15/2025 9:44 AM EDT CLL (chronic lymphocytic leukemia) (CMS/HCC V24, CMS/HCC V28) Anemia, unspecified type TYPE AND SCREEN Routine 02/15/2025 9:44 AM EDT Iron deficiency anemia due to chronic blood loss Recurrent squamous cell carcinoma of skin COMPREHENSIVE METABOLIC PANEL Routine 02/15/2025 9:44 AM EDT CLL (chronic lymphocytic leukemia) (CMS/HCC V24, CMS/HCC V28) Anemia, unspecified type HAPTOGLOBIN Routine 02/15/2025 9:44 AM EDT CLL (chronic lymphocytic leukemia) (CMS/HCC V24, CMS/HCC V28) Anemia, unspecified type CBC AND DIFFERENTIAL Routine 02/15/2025 9:44 AM EDT CLL (chronic lymphocytic leukemia) (CMS/HCC V24, CMS/HCC V28) Anemia, unspecified type CBC WITH AUTO DIFFERENTIAL Routine 02/01/2025 9:52 [...] (CMS/HCC V24, CMS/HCC V28) Anemia, unspecified type LIPID PANEL Routine 10/28/2022 from Last 3 Months or Most Recently Relevant to Health Maintenance Results * CT Neck Soft Tissue w Contrast (03/10/2025 10:21 AM EDT) Anatomical Region Laterality Modality Head and Neck Computed Tomogra phy 03/14/2025 9:07 AM EDT Impressions 03/14/2025 9:16 AM EDT Impression: No recurrent mass or cervical lymphadenopathy identified. No significant change. Telerad TRISTON ([id number]) -------- FINAL REPORT -------- Dictated By: Jailyn Ballesteros Dictated Date: 03/14/2025 09:07 ET Assigned Physician: Jailyn Ballesteros Reviewed and Electronically Signed By: Jailyn Ballesteros Signed Date: 03/14/2025 09:16 ET Workstation ID: [id number] Transcribed By: Self Edit Transcribed Date: 03/14/2025 09:07 ET Narrative 03/14/2025 9:16 AM EDT History: Skin carcinoma right cheek status post radiation treatment. Surveillance imaging. Comparison: 11/17/24 Technique: Helical volumetric imaging of the neck was performed during the uneventful intravenous administration of 85 cc Isovue-370. DLP: 379.41 mGy/cm [employer]Seller VCT Iterative reconstruction technique Findings: Surgical clips are again seen in the right neck consistent with resection/repair of a right cheek skin lesion and lymph node resection. No recurrent lymphadenopathy is seen. No abnormal mass or fluid collection is demonstrated. The tongue base is unremarkable. Portions of the oral tongue are obscured by artifact arising from dental amalgam. The nasopharyngeal and oropharyngeal mucosal landmarks are intact. There is submucosal fat deposition within the epiglottis, likely secondary to radiation treatment. Vocal cords are symmetric and normal in appearance. No paraglottic mass is seen. The bilateral carotid arteries and internal jugular veins are patent. Atherosclerotic calcification of the carotid bulbs, right greater than left, is again seen. There is no suspicious thyroid nodule. The parotid glands are symmetric and normal in appearance. The orbital contents are unremarkable. Patchy deep white matter hypodensity is seen within the included portions of the brain, unchanged, compatible with chronic microvascular ischemia in a patient of this age. Thick, flowing hyperostosis is seen along the anterior aspect of the cervical spine, suggesting diffuse idiopathic skeletal hyperostosis (DISH). Cervical disc degenerative changes and facet arthritis are again noted, with bilateral bony neural foraminal narrowing. Procedure Note Jailyn Ballesteros MD - 03/14/2025 History: Skin carcinoma right cheek status post radiation treatment.Surveillance imaging. Comparison: 11/17/24 Technique: Helical volumetric imaging of the neck was performed during theuneventful intravenous administration of 85 cc Isovue-370. DLP: 379.41 mGy/cm [facility] VCT Iterative reconstruction technique Findings: Surgical clips are again seen in the right neck consistent withresection/repair of a right cheek skin lesion and lymph node resection. Norecurrent lymphadenopathy is seen. No abnormal mass or fluid collection isdemonstrated. The tongue base is unremarkable. Portions of the oral tongue are obscuredby artifact arising from dental amalgam. The nasopharyngeal and oropharyngeal mucosal landmarks are intact. Thereis submucosal fat deposition within the epiglottis, likely secondary toradiation treatment. Vocal cords are symmetric and normal in appearance.No paraglottic mass is seen. The bilateral carotid arteries and internal jugular veins are patent.Atherosclerotic calcification of the carotid bulbs, right greater thanleft, is again seen. There is no suspicious thyroid nodule. The parotid glands are symmetric and normal in appearance. The orbital contents are unremarkable. Patchy deep white matterhypodensity is seen within the included portions of the brain, unchanged,compatible with chronic microvascular ischemia in a patient of this age. Thick, flowing hyperostosis is seen along the anterior aspect of thecervical spine, suggesting diffuse idiopathic skeletal hyperostosis(DISH). Cervical disc degenerative changes and facet arthritis are againnoted, with bilateral bony neural foraminal narrowing. IMPRESSION: Impression: No recurrent mass or cervical lymphadenopathy identified. No significantchange. Telerad PA ([id number]) -------- FINAL REPORT -------- Dictated By: Jailyn Ballesteros Dictated Date: 03/14/2025 09:07 ET Assigned Physician: Jailyn Ballesteros Reviewed and Electronically Signed By: Jailyn Ballesteros Signed Date: 03/14/2025 09:16 ET Workstation ID: [id number] Transcribed By: Self Edit Transcribed Date: 03/14/2025 09:07 ET Mimi Dawson NP IMG CT PROCEDURES Fin al Result * CT Chest w Contrast (03/08/2025 10:36 AM EDT) Anatomical Region Laterality Modality Body Computed Tomogra phy 03/08/2025 11:1 4 AM EDT Impressions 03/08/2025 11:24 AM EDT 1. Previously noted patchy bilateral groundglass pulmonary opacities have resolved and were presumably infectious/inflammatory. 2. Scattered small stable pulmonary nodules. 3. Stable nonspecific sclerotic or blastic lesion in the left humeral head. -------- FINAL REPORT -------- Dictated By: Alexx Ramos Dictated Date: 03/08/2025 11:14 ET Assigned Physician: Alexx Ramos Reviewed and Electronically Signed By: Alexx Ramos Signed Date: 03/08/2025 11:24 ET Workstation ID: [id number] Transcribed By: Self Edit Transcribed Date: 03/08/2025 11:15 ET Narrative 03/08/2025 11:24 AM EDT PROCEDURE: CT of the chest with intravenous contrast. HISTORY: Opacities/ Personal history of squamous cell carcinoma of the face, status post radiation therapy. TECHNIQUE: CT of the chest with intravenous contrast administration. Coronal and sagittal reformats and MIP reconstructions were created. IV contrast dose: 90 mL ISOVUE. COMPARISON: 11/17/2024. Dose length product: 344 mGy-cm. FINDINGS: LUNGS/PLEURA: There are 2 small right posterolateral tracheal diverticula just below the thoracic inlet. Mild segmental bronchiectasis in the right lower lobe. Patchy groundglass opacities in both lungs seen on the previous study have resolved. Mild parenchymal scarring at the right apex. There are a few stable small bilateral pulmonary nodules. The largest are a 2 mm peripheral right lower lobe nodule, series 3 image 183, and a 3 mm nodule in the periphery of the left lower lobe, series 3 image 149. No pleural effusion or pneumothorax. MEDIASTINUM/SYLVESTER: Small mediastinal and right hilar nodes are unchanged. No lymphadenopathy. VASCULATURE: Normal caliber pulmonary arteries with no central pulmonary embolism. Moderate atherosclerotic calcification of the aorta and great vessels. CARDIAC: Normal heart size. Severe coronary artery calcification. Stable small anterior pericardial effusion. CHEST WALL: No axillary or supraclavicular lymphadenopathy. LIMITED ABDOMEN: Moderate colonic fecal loading. 2 stable small low-attenuation liver lesions which are probably cysts. Ill-defined enhancing lesion in the anterior right hepatic lobe which communicates with the portal and hepatic veins, consistent with a small portosystemic shunt. BONES: Degenerative changes of the spine. Stable 12 mm nonspecific sclerotic or blastic lesion in the left humeral head. Procedure Note Alexx Ramos MD - 03/08/2025 PROCEDURE: CT of the chest with intravenous contrast. HISTORY: Opacities/ Personal history of squamous cell carcinoma of theface, status post radiation therapy. TECHNIQUE: CT of the chest with intravenous contrast administration.Coronal and sagittal reformats and MIP reconstructions were created. IV contrast dose: 90 mL ISOVUE. COMPARISON: 11/17/2024. Dose length product: 344 mGy-cm. FINDINGS: LUNGS/PLEURA: There are 2 small right posterolateral tracheal diverticulajust below the thoracic inlet. Mild segmental bronchiectasis in the rightlower lobe. Patchy groundglass opacities in both lungs seen on theprevious study have resolved. Mild parenchymal scarring at the rightapex. There are a few stable small bilateral pulmonary nodules. Thelargest are a 2 mm peripheral right lower lobe nodule, series 3 image 183,and a 3 mm nodule in the periphery of the left lower lobe, series 3 . No pleural effusion or pneumothorax. MEDIASTINUM/SYLVESTER: Small mediastinal and right hilar nodes are unchanged.No lymphadenopathy. VASCULATURE: Normal caliber pulmonary arteries with no central pulmonaryembolism. Moderate atherosclerotic calcification of the aorta and greatvessels. CARDIAC: Normal heart size. Severe coronary artery calcification. Stablesmall anterior pericardial effusion. CHEST WALL: No axillary or supraclavicular lymphadenopathy. LIMITED ABDOMEN: Moderate colonic fecal loading. 2 stable smalllow-attenuation liver lesions which are probably cysts. Ill-definedenhancing lesion in the anterior right hepatic lobe which communicateswith the portal and hepatic veins, consistent with a small portosystemicshunt. BONES: Degenerative changes of the spine. Stable 12 mm nonspecificsclerotic or blastic lesion in the left humeral head. IMPRESSION: 1. Previously noted patchy bilateral groundglass pulmonary opacities haveresolved and were presumably infectious/inflammatory. 2. Scattered small stable pulmonary nodules. 3. Stable nonspecific sclerotic or blastic lesion in the left humeralhead. -------- FINAL REPORT -------- Dictated By: Alexx Ramos Dictated Date: 03/08/2025 11:14 ET Assigned Physician: Alexx Ramos Reviewed and Electronically Signed By: Alexx Ramos Signed Date: 03/08/2025 11:24 ET Workstation ID: [id number] Transcribed By: Self Edit Transcribed Date: 03/08/2025 11:15 ET Mimi Dawson PHYSICAL THERAPY MANAGER IMG CT PROCEDURES Fin al Result * (ABNORMAL) Manual differential (02/28/2025 10:57 AM EDT) Only the most recent of2 resultswithin the time period is included. Neutrophils % 10.0 % LAB HEMETOLOGY METHOD 5 12:29 PM EDT [facility] Lymphocytes % 89.0 % LAB HEMETOLOGY METHOD 5 12:29 PM EDT [facility] Monocytes % 1.0 % LAB HEMETOLOGY METHOD 5 12:29 PM [facility] Eosinophils % 0.0 % LAB HEMETOLOGY METHOD 5 12:29 PM [facility] Basophils % 0.0 % LAB HEMETOLOGY METHOD 5 12:29 PM [facility] Metamyelocytes % 1.0(H) % LAB HEMETOLOGY METHOD 5 12:29 PM EDT [facility] Neutrophils Absolute Manual 0.63(L) 1.50 - 7.00 K/mcL LAB HEMETOLOGY METHOD 5 12:29 PM [facility] Lymphocytes Absolute 5.61(H) 1.00 - 5.00 K/mcL LAB HEMETOLOGY METHOD 5 12:29 PM [facility] Monocytes Absolute Manual 0.06(L) 0.20 - 1.00 K/mcL LAB HEMETOLOGY METHOD 5 12:29 PM [facility] Eosinophils Absolute Manual 0.00 0.00 - 0.50 K/mcL LAB HEMETOLOGY METHOD 5 12:29 PM [facility] Basophils Absolute Manual 0.00 0.00 - 0.20 K/mcL LAB HEMETOLOGY METHOD 5 12:29 PM [facility] Metamyelocytes Absolute Manual 0.06(H) 0.00 - 0.00 K/mcL LAB HEMETOLOGY METHOD 5 12:29 PM [facility] Rbc Morphology Consistent with indices Consistent with indices, Normal for LAB HEMETOLOGY METHOD 5 12:29 PM [facility] Platelet Morphology - WAM See Note(A) Normal [facility]Y [facility] 5 12:[facility] Comment:PLT: Normal Blood Venous blood specimen / Unknown Venipuncture / Unknown 02/28/2025 10:57 AM EDT 02/28/2025 11:10 AM EDT Lamar Cotton MD LAB BLOOD ORDERABLES Final R esult [facility] [address] [place] [address], * (ABNORMAL) CBC auto differential (02/28/2025 10:57 AM EDT) Only the most recent of8 resultswithin the time period is included. WBC 6.3 4.8 - 10.8 K/mcL LAB HEMETOLOGY METHOD 02/28/2025 12:29 PM [facility] RBC 2.30(L) 4.50 - 5.50 M/mcL LAB HEMETOLOGY METHOD 02/28/2025 12:29 [facility] Hemoglobin 8.3(L) 13.5 - 17.5 g/dL LAB HEMETOLOGY METHOD 02/28/2025 12:29 PM [facility] Hematocrit 24.6(L) 42.0 - 54.0 % LAB HEMETOLOGY METHOD 02/28/2025 12:29 PM [facility] MCV 105.1(H) 79.0 - 98.0 FL LAB HEMETOLOGY METHOD 02/28/2025 12:29 PM [facility] MCH 35.5(H) 27.0 - 32.0 pcg LAB HEMETOLOGY METHOD 02/28/2025 12:29 PM [facility] MCHC 33.7 32.0 - 37.0 g/dL LAB HEMETOLOGY METHOD 02/28/2025 12:29 PM [facility] RDW 16.2(H) 11.0 - 15.0 % LAB HEMETOLOGY METHOD 02/28/2025 12:29 PM EDT [facility] Platelets 77(L) 130 - 400 K/mcL LAB HEMETOLOGY METHOD 02/28/2025 12:29 PM EDT [facility] MPV 8.6 7.0 - 11.0 FL LAB HEMETOLOGY METHOD 02/28/2025 12:29 PM EDT [facility] NRBC 0.0 <1.0 % LAB HEMETOLOGY METHOD 02/28/2025 12:29 PM EDT [facility] NRBC Absolute 0.00 <0.10 K/mcL LAB HEMETOLOGY METHOD 02/28/2025 12:29 PM T [facility] Blood Venous blood specimen / Unknown Venipuncture / Unknown 02/28/2025 10:57 AM EDT 02/28/2025 11:10 AM EDT us Lamar Cotton MD LAB BLOOD ORDERABLES Final R esult [facility] [address] [place] [address], * (ABNORMAL) Reticulocyte count (02/28/2025 10:57 AM EDT) Retic Ct Abs 0.050 0.030 - 0.090 M/mcL LAB HEMETOLOGY METHOD 02/28/2025 11:30 AM EDT [facility] Retic Ct Pct 2.1(H) 0.7 - 1.7 % LAB HEMETOLOGY METHOD 02/28/2025 11:30 AM EDT [facility] Immature Retic Fract 12.5 2.3 - 15.9 % LAB HEMETOLOGY METHOD 02/28/2025 11:30 AM EDT [facility] Reticulocyte Hemoglobin 38.6 >29.0 pcg LAB HEMETOLOGY METHOD 02/28/2025 11:30 AM EDT [facility] Blood Venous blood specimen / Unknown Venipuncture / Unknown 02/28/2025 10:57 AM EDT 02/28/2025 11:10 AM EDT us Lamar Cotton MD LAB BLOOD ORDERABLES Final R esult Performing Organization Address City/[facility]/ZIP Co de Phone Number [facility] [address] [place] [address], [place] [phone] * Type and screen (02/28/2025 10:57 AM EDT) Only the most recent of8 resultswithin the time period is included. Pathologist [facility] A 02/28/2025 12:02 PM EDT [facility] Rh Type Positive 02/28/2025 12:02 PM EDT [facility] Antibody Screen Negative 02/28/2025 12:02 PM EDT [facility] Blood Venous blood specimen / Unknown Venipuncture / Unknown 02/28/2025 10:57 AM EDT 02/28/2025 11:09 AM EDT us Lamar Cotton MD LAB BLOOD BANK TEST ORDERABL ES Final Result Performing Organization Address City/[facility]/ZIP Co de Phone Number [facility] [address] [place] [address], [place] [phone] * Haptoglobin (02/28/2025 10:57 AM EDT) Only the most recent of8 resultswithin the time period is included. Haptoglobin 82 16 - 200 mg/dL LAB CHEMISTRY METHOD 02/28/2025 2:53 PM EDT [facility] Blood Venous blood specimen / Unknown Venipuncture / Unknown 02/28/2025 10:57 AM EDT 02/28/2025 11:10 AM EDT us Lamar Cotton MD LAB BLOOD ORDERABLES Final R esult [facility] [address] [place] [address], [place] [phone] * (ABNORMAL) Comprehensive metabolic panel (02/28/2025 10:57 AM EDT) Only the most recent of8 resultswithin the time period is included. Sodium 136 133 - 145 mmol/L LAB CHEMISTRY METHOD 02/28/2025 2:49 PM T [facility] Potassium 3.9 3.5 - 5.5 mmol/L LAB CHEMISTRY METHOD 02/28/2025 2:49 PM [facility] Chloride 103 96 - 110 mmol/L LAB CHEMISTRY METHOD 02/28/2025 2:49 PM [facility] CO2 24 21 - 32 mmol/L LAB CHEMISTRY METHOD 02/28/2025 2:49 PM [facility] Anion Gap 9 3 - 11 LAB CHEMISTRY METHOD 02/28/2025 2:49 PM [facility] Glucose 110(H) 70 - 100 mg/dL LAB CHEMISTRY METHOD 02/28/2025 2:49 PM [facility] BUN 15 5 - 25 mg/dL LAB CHEMISTRY METHOD 02/28/2025 2:49 PM [facility] Creatinine 0.85 0.70 - 1.30 mg/dL LAB CHEMISTRY METHOD 02/28/2025 2:49 PM [facility] eGFR 91 >=60 mL/min/1. 73m2 LAB CHEMISTRY METHOD 02/28/2025 2:49 PM [facility] Comment:Calculation based on the Chronic Kidney Disease Epidemiology Collaboration (CKD-EPI) equation refit without adjustment for race. BUN/Creatinine Ratio 17.6 LAB CHEMISTRY METHOD 02/28/2025 2:49 PM EDT [facility] Calcium 8.5 8.5 - 10.5 mg/dL LAB CHEMISTRY METHOD 02/28/2025 2:49 PM EDT [facility] AST (SGOT) 33 10 - 42 unit/L LAB CHEMISTRY METHOD 02/28/2025 2:49 PM EDT [facility] ALT (SGPT) 23 10 - 60 unit/L LAB CHEMISTRY METHOD 02/28/2025 2:49 PM EDT [facility] Alkaline Phosphatase 92 42 - 121 unit/L LAB CHEMISTRY METHOD 02/28/2025 2:49 PM EDT [facility] Total Protein 6.3 6.0 - 8.0 g/dL LAB CHEMISTRY METHOD 02/28/2025 2:[facility] Albumin 3.7 3.2 - 5.0 g/dL LAB CHEMISTRY METHOD 02/28/2025 2:49 PM EDT [facility] Total Bilirubin 0.8 0.0 - 1.4 mg/dL LAB CHEMISTRY METHOD 02/28/2025 2:49 PM EDT [facility] Blood Venous blood specimen / Unknown Venipuncture / Unknown 02/28/2025 10:57 AM EDT 02/28/2025 11:10 AM EDT us Lamar Cotton MD LAB BLOOD ORDERABLES Final R esult [facility] [address] [place] [address], * Transfuse RBC (01/20/2025 2:26 PM EDT) Only the most recent of2 resultswithin the time period is included. us Lamar Cotton MD BLOOD TRANSFUSION ORDERABLES Final Result * Prepare RBC: 2 Units (01/20/2025 9:08 AM EDT) Product Code [id number] 01/20/2025 9:55 AM EDT [facility] Unit Number [id number] 01/21/20 9:55 AM EDT [facility] Crossmatch Compatible 01/20/2025 9:13 AM EDT [facility] Dispense Status Transfused 01/20/2025 9:55 AM EDT [facility] Unit ABO Rh OPOS 01/20/2025 9:55 AM EDT [facility] Unit Expiration Date Time 01/20/2025 9:55 AM EDT [facility] Unit Blood Type 5100 01/20/2025 9:55 AM EDT [facility] Product Code [id number] 01/20/2025 12:26 PM EDT [facility] Unit Number [id number] 01/21/20 12:26 PM EDT [facility] Crossmatch Compatible 01/20/2025 9:13 AM EDT [facility] Dispense Status Transfused 01/20/2025 12:26 PM EDT [facility] Unit ABO Rh OPOS 01/20/2025 12:26 PM EDT [facility] Unit Expiration Date Time 01/20/2025 12:26 PM EDT [facility] Unit Blood Type 5100 01/20/2025 12:26 PM EDT [facility] Blood Venous blood specimen / Unknown 01/20/2025 9:08 AM EDT 01/18/2025 4:40 PM EDT us Lamar Cotton MD BLOOD BANK PRODUCT ORDERABLE S Final Result [facility] [address] [place] [address], [place] [phone] * (ABNORMAL) RBC morphology review (01/04/2025 10:40 AM EDT) Rbc Morphology Consistent with indices Consistent with indices, Normal for [place] LAB HEMETOLOGY METHOD 01/04/2025 1:25 PM EDT [facility] Platelet Morphology - WAM See Note(A) Normal LAB HEMETOLOGY METHOD 01/04/2025 1:25 PM EDT [facility] Comment:PLT: Normal Blood Venous blood specimen / Unknown Venipuncture / Unknown 01/04/2025 10:40 AM EDT 01/04/2025 11:29 AM EDT Lamar Cotton MD LAB BLOOD ORDERABLES Final R esult [facility] [address] [place] [address], [place] [phone] * External Xray Report (12/21/2024) Only the [...] Anatomical Region Laterality Modality Computed Tomogra phy us Provider [facility] IMG CT PROCEDURES Final Result * Lipid panel (10/28/2022) LDL/HDL Ratio 3 <=5 Triglycerides 94 <=150 mg/dL Cholesterol 127 <=200 mg/dL HDL 44 >=40 mg/dL LDL Cholesterol 65 <=100 mg/dL Blood Venous blood specimen / Unknown us Historical Provider LAB BLOOD ORDERABLES Jennifer graff Result from Last 3 Months or Most Recently Relevant to Health Maintenance Insurance MEDICARE [facility] Advance Directives * Full Code - Confirmed [...] 5:19 AM 09/14/2024 9:48 AM This code sta tus was ascertained in the following way: Code status discussion: discussion with patient To update the patient's code status, place a code status order. Do not modify or discontinue any currently active code status orders. Care Teams Geneticist Relationship Specialty Start Date End Date Aminata Moreno MD [address] [place] [id number] PCP - General Internal Medicine 10/21/24
--- OUTSIDE RECORDS SUMMARY | 2025-03-14 10:46 | XMS_ITS | Encounter Summary ---
Author Organization [facility] Address [address] [place] [address] Care Team Providers Care Tipple Supervisor Name Role Phone Suzanna Mcgill Primary Care Provider [phone] Encounter Details Date Type Department Care Team (Late st Contact Info) Description 08/26/2022 Lab Requisition [facility] [address] [place] [address] Ashu Mason MD [address] [place] [address] [id number] Social History Tobacco Use Types Packs/Day Years [...] of this encounter Procedures * Due to [place] [employer] law, this organization might not be sharing negative HIV tests. Procedure Name Priority Date/Time Associated Diagnosis Comments NON-GYNECOLOGIC CYTOLOGY 08/26/2022 8:00 AM EST documented in this encounter Results * Due to [place] [employer] law, this organization might not be sharing negative HIV tests. * (ABNORMAL) Non-Gynecologic Cytology (08/26/2022 8:00 AM EST) Final Diagnosis Specimen 1: Cheek, Right; Incoming consult, FNA Positive for malignant cells. Squamous cell carcinoma, keratinizing. See note. Note: The case was labelled as Right cheek, FNA, NOS , part 1 and part 2. Both part 1 and part 2 show squamous cell carcinoma. [facility] 08/27/2022 10:43 AM EST [facility] at 1043 EST Clinical History SCC Cheek [facility] MANUAL 08/27/2022 10:43 AM EST [facility] Gross Description Specimen 1: Received from [facility] are 6 glass slides labeled [id number] corresponding to a right cheek FNA obtained on 08/12/2022, according to the accompanying cytology report bearing the patient's name and date of . [facility] [place] MANUAL 08/27/2022 10:43 AM EST [employer] Embedded Images [facility] 08/27/2022 10:43 AM EST [employer] [facility] [employer] [facility] Resulting Agency Case was signed out at [facility], Department of Pathology, [facility] [id number] [facility] [place] MANUAL 08/27/2022 10:43 AM EST [facility] Abnormal Yes(A) (none) [facility] [place] MANUAL 08/27/2022 10:43 AM EST [facility] Report Header Non-Gynecologic Cytology Report Case: [id number] Authorizing Provider: Ashu Mason MD Collected: 08/26/2022 0800 Ordering Location: [facility] Received: 08/26/2022 1546 [facility] Pathologist: Rigoberto Brito MD Specimen: Cheek, Right, Incoming consult, FNA 08/27/2022 10:43 AM EST [facility] Structure of right cheek / Unknown 08/26/2022 8:00 AM EST 08/26/2022 3:46 PM EST us Ashu Mason MD LAB PATHOLOGY/CYTOLOGY ORDER FACUNDO Final Result [facility] [address] [place] [address], documented in this encounter Visit Diagnoses Not on filedocumented in this encounter Care Teams Tipple Supervisor Relationship Specialty Start Date End Date Suzanna Mcgill [address] [place] [address] PCP - General 08/14/22 documented as of this encounter
--- OUTSIDE RECORDS SUMMARY | 2025-03-14 10:46 | XMS_ITS | Encounter Summary ---
Author Organization [facility] Address [address] [place] [address] Care Team Providers Care Political Aide Name Role Phone Ananda Whiting MD Primary Care Provider Encounter Details Date Type Department Care Team Description 05/07/2023 Social Work [facility] [address] [place] [address] Cleo Campbell, [facility] Social History Tobacco Use Types Packs/Day Years [...] on filedocumented in this encounter Care Teams Political Aide Relationship Specialty Start Date End Date Ananda Whiting MD [address] [place] [address] [address] [place] [address] PCP - General Geriatric Medicine 06/03/24 documented as of this encounter
== END 2025-03-14 10:36 | disposition home or self-care (01) ==
LOC: HO.HGS 10:04
PROVIDERS: PCP Family Medicine; Visit Provider Surgery
DX: Z90.49 Acquired absence of other specified parts of digestive tract (principal); Z93.3 Colostomy status
CPT/HCPCS: 99024

== ENCOUNTER → 2025-03-14 10:04 | Outpatient (BNVA) | payer MEDICARE, SELFPAY | PROVIDERS: PCP Family Medicine; Visit Provider Surgery | DX: Z48.815 Encounter for surgical aftercare following surgery on the digestive system (principal); Z93.3 Colostomy status; Z90.49 Acquired absence of other specified parts of digestive tract; Z79.2 Long term (current) use of antibiotics; Z79.899 Other long term (current) drug therapy | CPT/HCPCS: 99212 ==

== ENCOUNTER 2025-04-27 06:00 | Outpatient (BNV) | payer MEDICARE, SELFPAY | END 2025-05-04 11:25 | PROVIDERS: Admitting Provider Surgery; PCP Family Medicine; Visit Provider Radiology Diagnostic Radiology | DX: K92.1 Melena (principal) | CPT/HCPCS: 74177 ==

== ENCOUNTER 2025-04-27 06:00 | Inpatient (IN) | payer MEDICARE, SELFPAY ==
[2025-04-21 13:06] VITALS: BP 115/61; PULSE 62; RESP 18; O2SAT 100; BMI 24.0
--- NOTE | 2025-04-21 13:44 | HO.ANESPROP2 ---
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 Dr Lou aware, no transfusion at this time. PMFSH Active Problems Active Problems: All Active Problems S/P colostomy (Acute) S/P left colectomy (Acute) Past Medical History Medical History (Updated 04/27/25 @ 18:34 by Meg Magallanes MD) Coronary artery disease HTN (hypertension) Chronic anemia Basal cell carcinoma Squamous cell carcinoma of face CLL (chronic lymphocytic leukemia) HLD (hyperlipidemia) Family History Family history of problems with anesthesia: No Surgical History Surgical History (Updated 04/28/25 @ 08:25 by Michele Bee PA-C) H/O colonoscopy Hx of cardiac catheterization Status post Mohs surgery for basal cell carcinoma Hx of colectomy (01/09/25) H/O neck surgery History of total right hip replacement History of total left hip replacement History of facial surgery History of Problems with Anesthesia: No Social History Social History Household Members: Spouse Housing: Condominium Are you a primary nursing care attendant to a significant other at home: No Do you presently have visiting nurse or other home services: No Patient Tobacco Use Status: Never used Tobacco Use of substances other than those prescribed or required for medical reasons: Yes Substance Use Type: Marijuana Substance Use Type Other:: edibles-advised to hold 3-5 days [id number] has not used recently Substance Use Frequency: Daily Currently Displaying Signs/Symptoms of Drug Intoxication Withdrawal: No Have you been hit, kicked, punched, or otherwise hurt by someone within the past year? If so, by whom?: No Do you feel safe in your current relationship?: Yes Is there a partner from a previous relationship who is making you feel unsafe now?: No Are you made to feel afraid or neglected: No Spiritual Healthcare Practices: no Mormonism Healthcare Practices: no Cultural Healthcare Practices: no Are you DNR?: Yes Advance Directives: Yes Advance Directives Information Provided: Yes Advance Directives on File: Yes Advance Directives Date on File: 12/24/24 Recently lost weight without trying: Yes How much weight loss: 2-13 pounds Eating poorly because of decreased appetite: Yes Nutrition screen score: 4 Nutrition Risks: No Nutritional Risk Poor oral hygiene: No service: No Meds Allergies Allergy/AdvReac Type Severity Reaction Status Date / Time No Known Allergies Allergy Verified 04/27/25 06:01 Home Medications ?Medication ?Instructions ?Recorded ?Confirmed ?Last Taken ?Type amlodipine 10 mg tablet 10 mg PO QAM 12/20/24 04/21/25 04/27/25 History atorvastatin 40 mg tablet 40 mg PO BEDTIME 12/20/24 04/21/25 01/08/25 History carvedilol 6.25 mg tablet 6.25 mg PO BID 12/20/24 04/20/25 04/27/25 History cefadroxil 500 mg capsule 500 mg PO BID hip infection 12/20/24 04/21/25 01/08/25 History prophylaxis losartan 100 mg tablet 100 mg PO QAM 12/20/24 04/21/25 01/08/25 History methocarbamol 750 mg tablet 750 mg PO Q8H PRN muscle spasm 12/20/24 04/20/25 Unknown History acetaminophen 325 mg tablet 650 mg PO Q6H PRN Pain 01/09/25 04/20/25 Unknown History (Tylenol) bisacodyl 5 mg tablet,delayed 5 mg PO BEDTIME PRN Constipation 01/09/25 04/20/25 Unknown History release (Dulcolax (bisacodyl)) cetirizine 10 mg tablet 10 mg PO BEDTIME PRN Allergy 01/09/25 04/20/25 Unknown History Symptoms cyanocobalamin (vitamin B-12) 1,000 mcg PO QAM 01/09/25 04/21/25 01/08/25 History 1,000 mcg tablet ferrous sulfate 325 mg (65 mg 325 mg PO QAM 01/09/25 04/21/25 01/08/25 History iron) tablet (iron) fexofenadine 180 mg tablet 180 mg PO DAILY PRN Allergy 01/09/25 04/20/25 01/08/25 History Symptoms multivitamin 1 tab PO DAILY 01/09/25 04/20/25 01/08/25 History sennosides 8.6 mg tablet (senna) 8.6 mg PO DAILY PRN Constipation 01/09/25 04/20/25 01/08/25 History Exam Height,Weight and Vital Signs: Height 6 ft 2 in Weight 84.822 kg Last Vital Signs Pulse 62 04/21/25 13:06 Resp 18 04/21/25 13:06 BP 115/61 04/21/25 13:06 Pulse Ox 100 04/21/25 13:06 O2 Del Method Room Air 04/21/25 13:06 Pertinent Lab Results Pertinent Lab Results: CBC and BMP 04/12/25 from [facility] WBC 4.8 - 10.8 K/mcL 7.4 RBC 4.50 - 5.50 M/mcL 2.60?Low? Hemoglobin 13.5 - 17.5 g/dL 9.3?Low? Hematocrit 42.0 - 54.0 % 28.1?Low? MCV 79.0 - 98.0 FL 106.4?High? MCH 27.0 - 32.0 pcg 35.2?High? MCHC 32.0 - 37.0 g/dL 33.1 RDW 11.0 - 15.0 % 14.6 Platelets 130 - 400 K/mcL 90?Low? Sodium 133 - 145 mmol/L 132?Low? Potassium 3.5 - 5.5 mmol/L 3.8 Chloride 96 - 110 mmol/L 100 CO2 21 - 32 mmol/L 29 Anion Gap 3 - 11 3 Glucose 70 - 100 mg/dL 99 BUN 5 - 25 mg/dL 16 Creatinine 0.70 - 1.30 mg/dL 1.08 eGFR >=60 mL/min/1.73m2 72 BUN/Creatinine Ratio ? 14.8 Calcium 8.5 - 10.5 mg/dL 8.9 AST (SGOT) 10 - 42 unit/L 43?High? ALT (SGPT) 10 - 60 unit/L 30 Alkaline Phosphatase 42 - 121 unit/L 79 Total Protein 6.0 - 8.0 g/dL 6.4 Albumin 3.2 - 5.0 g/dL 4.2 Total Bilirubin 0.0 - 1.4 mg/dL 0.6 Narrative Narrative: ECG 12 lead Collection Time: 04/07/25 9:24 AM Result Value Status Ventricular rate 62 Final Atrial rate 62 Final P-R interval 238 Final QRS duration 106 Final Q-T interval 456 Final QTC calculation (Bazett) 462 Final P axis 99 Final R axis -48 Final T axis 47 Final Narrative Sinus rhythm with 1st degree A-V block Left axis deviation Incomplete right bundle branch block Nonspecific ST and T wave abnormality Prolonged QT Abnormal ECG When compared with ECG of 26-Aug-2024 13:05, Incomplete right bundle branch block has replaced Right bundle branch block Confirmed by MD Elier, Giovanna ([id number]) on 04/07/2025 9:31:48 AM Per cardiology office note: Cardiac catheterization 2016: Total occlusion of nondominant left circumflex artery. Stress test 2021: There was a medium size area of mild photon reduction involving the basal to mid inferior, inferoapical and apical louie which remain unchanged on rest images and which demonstrated normal wall motion and wall thickening, consistent with attenuation artifact Airway Mallampati Class: II TM Dist: <=3cm Neck ROM: Full Heart: RRR. Lungs: CTA Other: Right side facial droop/paralysis d/t skin cancer tx Assessment and Plan Assessment Anesthesia Assessment: Anesthesia Plan Discussed and PAT Visit Final Anesthetic Review Family History of Problems with Anesthesia: No History of Problems with Anesthesia: No
[2025-04-27] VITALS (22 sets, daily range): BP systolic 115–148; BP diastolic 62–83; PULSE 64–77; RESP 11–18; TEMP 36.3–36.8; O2SAT 96–100; BMI 23.3
--- NOTE | ~2025-04-27 | CT_ITS ---
EXAMINATION: CT ABDOMEN AND PELVIS WITH CONTRAST CLINICAL INFORMATION: Status post colostomy reversal, dark bloody stools. COMPARISON: 01/09/2025. TECHNIQUE: Multidetector volumetric images were obtained from the superior aspect of the liver through the pubic symphysis following administration 85 mL of Omnipaque 350 intravenous contrast. Sagittal and coronal reformatted images were obtained on the technologist's workstation. Oral contrast: Yes This CT examination was performed using dose optimization techniques as appropriate, variously including the following: *Automated exposure control *Adjustment of mA and/or kV according to patient size (this includes techniques or standardized protocols for targeted exams where dose is matched to indication/reason for exam; i.e. extremities or head) *Use of iterative reconstruction technique FINDINGS: PERITONEUM: There is free intraperitoneal air, small volume. This may be postoperative. Clinically correlate. LUNG BASES: Lung bases demonstrate mild dependent atelectasis bilaterally. There is discoid atelectasis in the right base. There is a small pericardial effusion. No pleural effusions. LIVER, GALLBLADDER, AND BILIARY TREE: Liver again demonstrates atrophy of the left hepatic lobe. Liver otherwise normal without suspicious lesion. No intrahepatic biliary dilatation. Gallbladder is somewhat decompressed however has a normal appearance. PANCREAS: Unremarkable. SPLEEN: Borderline enlarged in the craniocaudad dimension measuring 17 cm. Not enlarged in AP or transverse diameter. ADRENAL GLANDS: Unremarkable. KIDNEYS AND URETERS: The kidneys are normal in size, shape, and attenuation. No hydronephrosis, hydroureter, or calculi seen. No perinephric stranding. BLADDER: Partially obscured by streak artifact from bilateral hip replacements. Otherwise normal. GASTROINTESTINAL TRACT: There has been a partial colectomy of the left colon. There is an anastomosis of the distal transverse colon with the sigmoid colon. There is edema and expected postoperative changes at the anastomotic site. There is caliber change of the right hemicolon which demonstrates abundant stool and gas, 2 decompressed post anastomotic colon. This is likely secondary to edema/postoperative changes at the anastomosis. The rectum is partially obscured by streak artifact. Grossly no abnormality. There is mild presacral edema, presumably postoperative. No small bowel dilatation. No CT evidence of acute appendicitis. The stomach is somewhat decompressed. The duodenal sweep appears normal. ABDOMINAL WALL: Expected post laparotomy changes. There is a bursal fluid collection abutting the superior right greater trochanter. LYMPH NODES: No abnormal lymphadenopathy. VASCULAR: Heavy atheromatous calcification of the aorta and iliac arteries. There is no aneurysm. PELVIC VISCERA: Prostate largely obscured by streak artifact. OSSEOUS STRUCTURES: Bilateral hip prostheses in place. Abundant streak artifact abutting. Degenerative changes throughout the spine, moderate in severity. No suspicious lytic or blastic bone lesions. CT/CT abdomen pelvis w IV con IMPRESSION: 1. Small volume free intraperitoneal air. This is presumably postoperative however correlation is necessary. 2. Partial left colectomy. The sigmoid anastomosis has an expected postoperative appearance. There is dilatation of large bowel proximal to the anastomosis with moderate fecal material seen in the right hemicolon. This is likely secondary to postoperative swelling of the anastomotic site. 3. The rectum is a normal appearance however is partially obscured by streak artifact from hip prostheses. No obvious source of bleeding identified in the GI tract. 4. Borderline splenomegaly. 5. Additional ancillary findings as discussed in the body of the report. Electronically signed by: Marcelo Dawson MD 05/04/2025 12:10 PM EDT
[2025-04-27] MEDS: Lactated Ringers 1,000 ML 100 ML IVCONT (06:28)
--- NOTE | 2025-04-27 07:12 | PHA.MEDREC ---
Pharmacy Consult ? Medication Reconciliation Pharmacy has completed the medication reconciliation. Reviewed med rec done by nursing. Matches claims.
--- NOTE | 2025-04-27 07:24 | MHC.SHP ---
Pre-Procedural Eval Section A - 24 Hr Update-Section A only Date of Service: 04/27/25 The patient is an INPATIENT: No Changes since office visit: Yes Patient answered all questions; No Cold of Flu in the past 2 weeks, No New Medical Problems and No Changes in Medication The patient has been examined within 24 hours of the surgical procedure. The History & Physical has been completed within 30 days and I have reviewed it.: No Section B - Complete if H&P > 30 days Chief Complaint: colostomy closure Details of Present Illness: No change in patient's symptoms. Tolerated the bowel prep well. Relevant Family History (Specify if Yes): No Relevant Social History: None Present Medications: see Short Stay Collaborative assessment Medical History: No relevant PMH History of Previous Operations: Relevant previous surgery/procedure and date(s) (01/09/2025 Amarjit procedure) Allergies: Allergies Allergy/AdvReac Type Severity Reaction Status Date / Time No Known Allergies Allergy Verified 04/27/25 06:01 Review of Systems Sugical H&P ROS: Negative: Constitution, Cardiovascular, Respiratory, Neurological, Psychiatric, Hem-Onc, Allergic/Immunologic, Gastrointestinal, Genitourinary, Musculoskeletal and Integumentary Exam Surgical H&P Exam: Normal: HEENT, Normal: Heart, Normal: Lungs, Normal: Extremities, Normal: Abdomen and Normal: Skin Plan Diagnosis/Plan: Unchanged I have reviewed the history and physical and performed a pertinent physical examination on my patient. No changes have occurred unless specified. Time Spent With Patient Time: Total time managing care of this patient today ____ minutes.
--- NOTE | 2025-04-27 08:45 | HO.ANESPROP2 ---
[facility] Active Problems Active Problems: All Active Problems (Updated 04/21/25 @ 12:57 by Myra Jones RN) S/P colostomy (Acute) S/P left colectomy (Acute) Past Medical History Medical History Coronary artery disease Chronic anemia Basal cell carcinoma Squamous cell carcinoma of face CLL (chronic lymphocytic leukemia) HLD (hyperlipidemia) HTN (hypertension) Functional capacity: independent ambulation Family History Family history of problems with anesthesia: No Surgical History Surgical History H/O colonoscopy Hx of cardiac catheterization Status post Mohs surgery for basal cell carcinoma Hx of colectomy (01/09/25) H/O neck surgery History of total right hip replacement History of total left hip replacement History of facial surgery History of Problems with Anesthesia: No Social History Social History Household Members: Significant Other [facility] Are you a primary pharmacy care coordinator to a significant other at home: No Do you presently have visiting nurse or other home services: No Patient Tobacco Use Status: Never used Tobacco Use of substances other than those prescribed or required for medical reasons: Yes Substance Use Type: Marijuana Substance Use Type Other:: edibles-advised to hold 3-5 days [id number] has not used recently Substance Use Frequency: Daily Have you been hit, kicked, punched, or otherwise hurt by someone within the past year? If so, by whom?: No Spiritual Healthcare Practices: no Sikhism Healthcare Practices: no Cultural Healthcare Practices: no Are you DNR?: Yes Advance Directives: Yes Advance Directives Information Provided: Yes Advance Directives on File: Yes Advance Directives Date on File: 12/24/24 Poor oral hygiene: No service: No Meds Allergies Allergy/AdvReac Type Severity Reaction Status Date / Time No Known Allergies Allergy Verified 04/27/25 06:01 Active Medications: Current Medications Lactated Ringer's (Lr) 1,000 mls @ 100 mls/hr IVCONT .Q10H PATEL Last Admin: 04/27/25 06:28 Dose: 100 mls/hr Home Medications ?Medication ?Instructions ?Recorded ?Confirmed ?Last Taken ?Type amlodipine 10 mg tablet 10 mg PO QAM 12/20/24 04/21/25 04/27/25 History atorvastatin 40 mg tablet 40 mg PO BEDTIME 12/20/24 04/21/25 01/08/25 History carvedilol 6.25 mg tablet 6.25 mg PO BID 12/20/24 04/20/25 04/27/25 History cefadroxil 500 mg capsule 500 mg PO BID hip infection 12/20/24 04/21/25 01/08/25 History prophylaxis losartan 100 mg tablet 100 mg PO QAM 12/20/24 04/21/25 01/08/25 History methocarbamol 750 mg tablet 750 mg PO Q8H PRN muscle spasm 12/20/24 04/20/25 Unknown History acetaminophen 325 mg tablet 650 mg PO Q6H PRN Pain 01/09/25 04/20/25 Unknown History (Tylenol) bisacodyl 5 mg tablet,delayed 5 mg PO BEDTIME PRN Constipation 01/09/25 04/20/25 Unknown History release (Dulcolax (bisacodyl)) cetirizine 10 mg tablet 10 mg PO BEDTIME PRN Allergy 01/09/25 04/20/25 Unknown History Symptoms cyanocobalamin (vitamin B-12) 1,000 mcg PO QAM 01/09/25 04/21/25 01/08/25 History 1,000 mcg tablet ferrous sulfate 325 mg (65 mg 325 mg PO QAM 01/09/25 04/21/25 01/08/25 History iron) tablet (iron) fexofenadine 180 mg tablet 180 mg PO DAILY PRN Allergy 01/09/25 04/20/25 01/08/25 History Symptoms multivitamin 1 tab PO DAILY 01/09/25 04/20/25 01/08/25 History sennosides 8.6 mg tablet (senna) 8.6 mg PO DAILY PRN Constipation 01/09/25 04/20/25 01/08/25 History Exam Height,Weight and Vital Signs: Height 6 ft 2 in Weight 84.822 kg Last Vital Signs Temp 97.9 F 04/27/25 06:29 Pulse 65 04/27/25 06:29 Resp 18 04/27/25 06:29 BP 118/62 04/27/25 06:29 Pulse Ox 100 04/27/25 06:29 O2 Del Method Room Air 04/27/25 06:29 Pertinent Lab Results Pertinent Lab Results: Laboratory Tests 04/21/25 04/21/25 13:59 14:27 Blood Type A Positive Rho(D) Type Cancelled Antibody Screen NEGATIVE Airway Mallampati Class: II TM Dist: >3cm Neck ROM: Full Heart: RRR Lungs: CTA Assessment and Plan Assessment Anesthesia Assessment: Anesthesia Plan Discussed and Chart Reviewed Final Anesthetic Review Family History of Problems with Anesthesia: No History of Problems with Anesthesia: No NPO: Yes ASA Class: III Final Preanesthetic Review: Meds/Allgs Chart Reviewed, Consent Obtained/Reviewed and Anes Risks/Benef Reviewed Patient Risk: Intermediate Procedure Risk: Intermediate Anesthetic Plan Anesthetic Plan: GA Disposition: Standard PACU
--- NOTE | 2025-04-27 08:48 | HO.ANESPROP2 ---
[facility] Active Problems Active Problems: All Active Problems S/P colostomy (Acute) S/P left colectomy (Acute) Past Medical History Medical History Coronary artery disease Chronic anemia Basal cell carcinoma Squamous cell carcinoma of face CLL (chronic lymphocytic leukemia) HLD (hyperlipidemia) HTN (hypertension) Functional capacity: independent ambulation Family History Family history of problems with anesthesia: No Surgical History Surgical History H/O colonoscopy Hx of cardiac catheterization Status post Mohs surgery for basal cell carcinoma Hx of colectomy (01/09/25) H/O neck surgery History of total right hip replacement History of total left hip replacement History of facial surgery History of Problems with Anesthesia: No Social History Social History Household Members: Significant [facility] Are you a primary critical care physician assistant to a significant other at home: No Do you presently have visiting nurse or other home services: No Patient Tobacco Use Status: Never used Tobacco Use of substances other than those prescribed or required for medical reasons: Yes Substance Use Type: Marijuana Substance Use Type Other:: edibles-advised to hold 3-5 days [id number] has not used recently Substance Use Frequency: Daily Have you been hit, kicked, punched, or otherwise hurt by someone within the past year? If so, by whom?: No Spiritual Healthcare Practices: no Quaker Healthcare Practices: no Cultural Healthcare Practices: no Are you DNR?: Yes Advance Directives: Yes Advance Directives Information Provided: Yes Advance Directives on File: Yes Advance Directives Date on File: 12/24/24 Poor oral hygiene: No service: No Meds Allergies Allergy/AdvReac Type Severity Reaction Status Date / Time No Known Allergies Allergy Verified 04/27/25 06:01 Active Medications: Current Medications Lactated Ringer's (Lr) 1,000 mls @ 100 mls/hr IVCONT .Q10H PATEL Last Admin: 04/27/25 06:28 Dose: 100 mls/hr Home Medications ?Medication ?Instructions ?Recorded ?Confirmed ?Last Taken ?Type amlodipine 10 mg tablet 10 mg PO QAM 12/20/24 04/21/2504/27/25 History atorvastatin 40 mg tablet 40 mg PO BEDTIME 12/20/24 04/21/25 01/08/25 History carvedilol 6.25 mg tablet 6.25 mg PO BID 12/20/24 04/20/25 04/27/25 History cefadroxil 500 mg capsule 500 mg PO BID hip infection 12/20/24 04/21/25 01/08/25 History prophylaxis losartan 100 mg tablet 100 mg PO QAM 12/20/24 04/21/25 01/08/25 History methocarbamol 750 mg tablet 750 mg PO Q8H PRN muscle spasm 12/20/24 04/20/25 Unknown History acetaminophen 325 mg tablet 650 mg PO Q6H PRN Pain 01/09/25 04/20/25 Unknown History (Tylenol) bisacodyl 5 mg tablet,delayed 5 mg PO BEDTIME PRN Constipation 01/09/25 04/20/25 Unknown History release (Dulcolax (bisacodyl)) cetirizine 10 mg tablet 10 mg PO BEDTIME PRN Allergy 01/09/25 04/20/25 Unknown History Symptoms cyanocobalamin (vitamin B-12) 1,000 mcg PO QAM 01/09/25 04/21/25 01/08/25 History 1,000 mcg tablet ferrous sulfate 325 mg (65 mg 325 mg PO QAM 01/09/25 04/21/25 01/08/25 History iron) tablet (iron) fexofenadine 180 mg tablet 180 mg PO DAILY PRN Allergy 01/09/25 04/20/25 01/08/25 History Symptoms multivitamin 1 tab PO DAILY 01/09/25 04/20/25 01/08/25 History sennosides 8.6 mg tablet (senna) 8.6 mg PO DAILY PRN Constipation 01/09/25 04/20/25 01/08/25 History Exam Height,Weight and Vital Signs: Height 6 ft 2 in Weight 84.822 kg Last Vital Signs Temp 97.9 F 04/27/25 06:29 Pulse 65 04/27/25 06:29 Resp 18 04/27/25 06:29 BP 118/62 04/27/25 06:29 Pulse Ox 100 04/27/25 06:29 O2 Del Method Room Air 04/27/25 06:29 Pertinent Lab Results Pertinent Lab Results: Laboratory Tests 04/21/25 04/21/25 13:59 14:27 Blood Type A Positive Rho(D) Type Cancelled Antibody Screen NEGATIVE Airway Mallampati Class: II TM Dist: >3cm Neck ROM: Full Heart: RRR Lungs: CTA Assessment and Plan Assessment Anesthesia Assessment: Anesthesia Plan Discussed and Chart Reviewed Final Anesthetic Review Family History of Problems with Anesthesia: No History of Problems with Anesthesia: No NPO: Yes ASA Class: III Final Preanesthetic Review: Meds/Allgs Chart Reviewed, Consent Obtained/Reviewed and Anes Risks/Benef Reviewed Patient Risk: Intermediate Procedure Risk: Intermediate Anesthetic Plan Anesthetic Plan: GA Disposition: Standard PACU
--- NOTE | 2025-04-27 10:09 | P.OP_ITS ---
Operative Note Operative Note Date of Service: 04/27/25 Narrative: Preoperative diagnosis: Sigmoid Volvulus, status post Amarjit procedure Postoperative diagnosis: Same Procedure: Closure of colostomy Surgeon: Paul Bray MD Brush Maker Machine: Glenna Marie PA-C; Michele Bee PA-C, CHRISTOPHER Mitchell Anesthesia: General endotracheal Indications for procedure: 75-year-old male patient with a previous history of sigmoid volvulus status post sigmoid colectomy with end-colostomy on 01/09/2025. He tolerated the procedure well and returns today for closure of colostomy. Operative findings: Healthy-appearing bowel with no evidence of ischemia. Stapled colorectal anastomosis performed Specimen: Colostomy Estimated blood loss: 20 mL Complications: None Procedure details: Patient was brought to the OR and placed in a supine position. After administering general anesthesia the patient was placed in a lithotomy position. Alegria catheter was inserted. The colostomy was sutured with a running locked Prolene 3-0 suture. Skin was then prepped with Betadine in the perineum and ChloraPrep in the abdomen. Sterile drapes were then applied. A surgical time-out was called the consent confirmed. Patient received preoperative antibiotics and Venodyne boots were in place. Local anesthesia was infiltrated around the colostomy and a midline incision. An elliptical incision was then made with the 15 blade and carried down into subcutaneous tissue down around the colostomy wall past fascia and into the peritoneum. The bowel was further mobilized proximally through the colostomy incision. The bowel was then returned to the abdominal cavity. Attention was then directed to the lower midline incision which was reopened just above the pubis. This was carried out through subcutaneous tissue, through linea alba into the peritoneum. Small bowel was brought out of the pelvis and packed with ABD pads. Rectal stump was identified and mobilized along the lateral louie. Peritoneum was divided using electrocautery and further mobilized distally. Previous staple line was identified with a loop of small bowel over riding. This was lysed using a Metzenbaum scissors. Attention was then directed to the colostomy which was clamped using a pursestring clamp. A 3-0 Prolene on a Evaristo needle was then used to create a pursestring. The bowel was then cut above the clamp in the colostomy site sent to pathology for further examination. The clamp was removed and the descending colon size using the EEA sizers. It was determined that a 31 EEA would easily pass. An EEA 31 was then obtained. The anvil was placed in the descending colon and the pursestring tied. The EEA sizers were then used to dilate the anorectum. The EEA stapler was then advanced to the rectal stump and the spike brought through the staple line. The anvil was then connected in the staple fired. The staple line was reinforced using 3-0 Surgilon sutures in a interrupted Lembert fashion. Staple was then removed and a leak test performed by instilling air into the rectum. No leak could be identified. The abdominal cavity was then irrigated with saline solution and suctioned dry. Wounds were checked for hemostasis. Colostomy incision was closed 1st using a 0 Polysorb suture on peritoneum. Rectus muscle was reapproximated using interrupted 0 Polysorb sutures. Fascia was then closed using a running 0 Polysorb suture. Fascia in the midline was then closed using a running looped 0 PDS suture. Dermis was then reapproximated using interrupted 3-0 Polysorb sutures at both incisions. Skin was closed using a running subcuticular 4-0 Polysorb suture. Sterile dressings consisting of Steri-Strips, 4 x 4 gauze, and Tegaderm were then applied. The patient tolerated the procedure well. Sponge, instrument, and needle counts were reported as correct. The patient was transferred to PACU in stable condition.
--- NOTE | 2025-04-27 13:48 | MHC.CLN ---
CONSULT-ROUTINE 2-13# WEIGHT LOSS RECORDED UPON ADM. REVIEW OF WEIGHT HX SHOWS WEIGHT OVERALL STABLE SINCE 12/20/24 WITHOUT SIGNIFICANT CHANGE. DIET=CLEAR LIQUIDS. S/P SX FOR CLOSURE OF COLOSTOMY. NO ADDITIONAL NUTRITION INTERVENTIONS AT THIS TIME.
[2025-04-27] MEDS: Dextrose 5 % and Lactated Ring 1,000 ML 125 ML IVCONT ×2 (14:10→21:18)
[2025-04-27] MEDS: oxyCODONE HCl Immed Release 5 MG TABLET PO ×2 (15:12→21:16)
--- NOTE | 2025-04-27 15:49 | HO.PM.IMCN ---
History of Present Illness Data of Consult Service Date: 04/27/25 Requesting physician: Meg Magallanes Primary Care Provider: Aminata Moreno MD HPI Reason for consult: CAD, HTN med management s/p colostomy closure Fransisco Garzon is a delightful 75 years old man with past medical history significant for CLL, skin cancer status post graft surgery and chemotherapy, essential hypertension, CAD and hyperlipidemia underwent closure of colostomy today. She denied any chest pain, shortness on breath, cough or palpitations. He does complain of mild pain to the surgical site. Pain is well controlled with oxycodone. He is tolerating liquid diet. Most recent labs (March 14, 2025): WBC 14.1, H&H 9.9/28.6, platelets 125, sodium 134, chloride 100, potassium 3.0, anion gap 9, BUN 8, creatinine 0.59, glucose 88 Review of Systems Review of Systems: All 12 systems were reviewed and normal except as noted in HPI. [facility] Medical History (Updated 04/27/25 @ 18:34 by Meg Magallanes MD) Coronary artery disease HTN (hypertension) Chronic anemia Basal cell carcinoma Squamous cell carcinoma of face CLL (chronic lymphocytic leukemia) HLD (hyperlipidemia) Functional capacity: independent ambulation Surgical History H/O colonoscopy Hx of cardiac catheterization Status post Mohs surgery for basal cell carcinoma Hx of colectomy (01/09/25) H/O neck surgery History of total right hip replacement History of total left hip replacement History of facial surgery Social History Household Members: Spouse Housing: Condominium Are you a primary client care representative to a significant other at home: No Do you presently have visiting nurse or other home services: No Patient Tobacco Use Status: Never used Tobacco Use of substances other than those prescribed or required for medical reasons: Yes Substance Use Type: Marijuana Substance Use Type Other:: edibles-advised to hold 3-5 days [id number] has not used recently Substance Use Frequency: Daily Currently Displaying Signs/Symptoms of Drug Intoxication Withdrawal: No Have you been hit, kicked, punched, or otherwise hurt by someone within the past year? If so, by whom?: No Do you feel safe in your current relationship?: Yes Is there a partner from a previous relationship who is making you feel unsafe now?: No Are you made to feel afraid or neglected: No Spiritual Healthcare Practices: no Quaker Healthcare Practices: no Cultural Healthcare Practices: no Are you DNR?: Yes Advance Directives: Yes Advance Directives Information Provided: Yes Advance Directives on File: Yes Advance Directives Date on File: 12/24/24 Recently lost weight without trying: Yes How much weight loss: 2-13 pounds Eating poorly because of decreased appetite: Yes Nutrition screen score: 4 Nutrition Risks: No Nutritional Risk Poor oral hygiene: No service: No Meds Allergies Allergy/AdvReac Type Severity Reaction Status Date / Time No Known Allergies Allergy Verified 04/27/25 06:01 Active Medications: Current Medications Amlodipine Besylate (Amlodipine Besylate 10 Mg Tablet) 10 mg PO DAILY [facility]; Protocol Atorvastatin Calcium (Atorvastatin Calcium 40 Mg Tablet) 40 mg PO BEDTIME [facility] Carvedilol (Carvedilol 6.25 Mg Tablet) 6.25 mg PO BID [facility]; Protocol Enoxaparin Sodium (Enoxaparin Sodium 40 Mg/0.4 Ml Syringe) 40 mg SUBCUT Q24H [facility] Ferrous Sulfate (Ferrous Sulfate 324 Mg Tablet.Dr) 324 mg PO DAILY [facility] Hydromorphone HCl (Hydromorphone Hcl 0.5 Mg/0.5 Ml Syringe) 0.5 mg IVPUSH Q3H PRN; Protocol PRN Reason: Pain, Severe (Pain Scale 7-10) Acetaminophen (Ofirmev) 1,000 mg in 100 mls @ 400 mls/hr IV Q6H PRN PRN Reason: Pain, Mild (Pain Scale 1-3) Dextrose/Lactated Ringer's (D5lr) 1,000 mls @ 125 mls/hr IVCONT .Q8H PATEL Last Admin: 04/27/25 14:10 Dose: 125 mls/hr Losartan Potassium (Losartan Potassium 50 Mg Tablet) 100 mg PO DAILY [facility]; Protocol Last Admin: 04/27/25 14:04 Dose: 100 mg Methocarbamol (Methocarbamol 750 Mg Tablet) 750 mg PO Q8H PRN PRN Reason: Muscle Spasm Ondansetron HCl (Ondansetron Hcl 4 Mg/2 Ml Vial) 4 mg IVPUSH QID PRN PRN Reason: Nausea Oxycodone HCl (Oxycodone Hcl Immed Release 5 Mg Tablet) 5 mg PO Q6H PRN PRN Reason: Pain, Moderate(Pain Scale 4-6) Last Admin: 04/27/25 15:12 Dose: 5 mg Home Medications ?Medication ?Instructions ?Recorded ?Confirmed ?Last Taken ?Type amlodipine 10 mg tablet 10 mg PO QAM 12/20/24 04/21/25 04/27/25 History atorvastatin 40 mg tablet 40 mg PO BEDTIME 12/20/24 04/21/25 01/08/25 History carvedilol 6.25 mg tablet 6.25 mg PO BID 12/20/24 04/20/25 04/27/25 History cefadroxil 500 mg capsule 500 mg PO BID hip infection 12/20/24 04/21/25 01/08/25 History prophylaxis losartan 100 mg tablet 100 mg PO QAM 12/20/24 04/21/25 01/08/25 History methocarbamol 750 mg tablet 750 mg PO Q8H PRN muscle spasm 12/20/24 04/20/25 Unknown History acetaminophen 325 mg tablet 650 mg PO Q6H PRN Pain 01/09/25 04/20/25 Unknown History (Tylenol) bisacodyl 5 mg tablet,delayed 5 mg PO BEDTIME PRN Constipation 01/09/25 04/20/25 Unknown History release (Dulcolax (bisacodyl)) cetirizine 10 mg tablet 10 mg PO BEDTIME PRN Allergy 01/09/25 04/20/25 Unknown History Symptoms cyanocobalamin (vitamin B-12) 1,000 mcg PO QAM 01/09/25 04/21/25 01/08/25 History 1,000 mcg tablet ferrous sulfate 325 mg (65 mg 325 mg PO QAM 01/09/25 04/21/25 01/08/25 History iron) tablet (iron) fexofenadine 180 mg tablet 180 mg PO DAILY PRN Allergy 01/09/25 04/20/25 01/08/25 History Symptoms multivitamin 1 tab PO DAILY 01/09/25 04/20/25 01/08/25 History sennosides 8.6 mg tablet (senna) 8.6 mg PO DAILY PRN Constipation 01/09/25 04/20/25 01/08/25 History Physical Exam Vital Signs and Narrative: Vital Signs: Last Vital Signs Temp 98.3 F 04/27/25 15:30 Pulse 70 04/27/25 15:30 Resp 16 04/27/25 15:30 BP 139/71 04/27/25 15:30 Pulse Ox 99 04/27/25 15:30 O2 Del Method Room Air 04/27/25 15:30 BMI result Body Mass Index 23.3 Constitutional - Awake and Alert, No apparent distress HEENT - Right face skin graft. Heart - RRR, No murmurs Respiratory - Normal lung expansion, Normal respiratory effort, No respiratory distress, CTA bilaterally Abdomen - Nondistended, RUQ surgical bandage in place, minimal tenderness to palpation. Extremities - no calf tenderness bilaterally, no swelling Musculoskeletal - generalized atrophy. Skin - Warm/Dry Neurological - Alert & oriented x3. Moving all extremities spontaneously. Right facial paralysis (chronic). Normal speech. Psychological - Appropriate affect Assessment and Plan (1) HTN (hypertension): Qualifiers: Hypertension type: primary hypertension Qualified Code(s): I10 - Essential (primary) hypertension Status: Acute (2) Coronary artery disease: Qualifiers: Coronary Disease-Associated Artery/Lesion type: unspecified vessel or lesion type [place] vs. transplanted heart: [place] heart Associated angina: without angina Qualified Code(s): I25.10 - Atherosclerotic heart disease of [place] coronary artery without angina pectoris Status: Acute Plan Fransisco Garzon is a delightful 75 y/o man admitted to the surgery service after: Closure of colostomy POD #0. Treatment per surgery. Essential hypertension. Continue home meds: Carvedilol, amlodipine and losartan. CAD s/p stentin, 2015. Denied chest pain or shortness on breath. Continue statin. Hyperlipidemia. Continue atorvastatin. CLL. Not on medications. F/U as an outpatient. Hx of skin CA. s/p facial skin graft --> right facial paralysis, chemo and radiaton. Doing well. Code status: Full (discussed with the patient). DVT prophylaxis: Lovenox
[2025-04-28] VITALS (7 sets, daily range): BP systolic 110–141; BP diastolic 59–72; PULSE 61–73; RESP 12–20; TEMP 36.3–37.1; O2SAT 79–99
[2025-04-28] MEDS: Dextrose 5 % and Lactated Ring 1,000 ML 125 ML IVCONT ×2 (04:51→13:00)
[2025-04-28] MEDS: oxyCODONE HCl Immed Release 5 MG TABLET PO ×4 (04:54→22:13)
[2025-04-28 06:04] LABS: Anion Gap 11 (12-20); Blood Urea Nitrogen 15 mg/dL (9-16); Calcium 8.2 mg/dL (8.4-10.2); Carbon Dioxide 24 mmol/L (22-29); Chloride 103 mmol/L (96-108); Creatinine Clr Calc Pharmacy 87.3; Estimated Glomerular Filt Rate > 60; Potassium 3.7 mmol/L (3.3-5.1); Sodium 134 mmol/L (135-145)
[2025-04-28 06:14] LABS: Hemoglobin 7.5 g/dl (14.0-18.0); Imm Gran Abs Auto 0.11 X10*3/uL (0.00-0.03); Imm Gran Pct Auto 1.0 % (0.0-0.4); MANUAL DIFF FLAG SCAN; Mean Corpuscular HGB Conc 36.2 g/dl (31.0-36.0); Mean Corpuscular Hemoglobin 36.8 pg (27.0-33.0); Mean Corpuscular Volume 101.5 fL (80.0-98.0); NRBC Abs Auto 0.000 X10*3/uL (0.0-0.012); NRBC Pct Auto 0.0 /100WBC (0.0-0.2); Red Blood Count 2.04 X10*6/uL (4.60-5.80); SCAN SMEAR FLAG 1; White Blood Count 10.9 X10*3/uL (4.8-10.8)
[2025-04-28 06:35] LABS: Hematocrit 20.7 % (42.0-52.0); Lymphocytes Absolute Auto 9.7 X10*3/uL (1.2-4.9); Platelet Count 77 X10*3/uL (160-400)
--- NOTE | 2025-04-28 07:37 | P.PNGS_ITS ---
Subjective Subjective Date of Service: 04/28/25 <Michele Bee PA-C - Last Filed: 04/28/25 12:14> 04/28/25 <Paul Bray MD - Last Filed: 04/28/25 15:55> Interval history: doing well, pain 4/10 with medication, comfortable at rest. Pain is localized to incision site. Wants to have Alegria removed. Tolerating clear liquid diet. Using spirometry. Denies bloating, nausea or vomiting. Denies flatus, bowel movement. <Michele Bee PA-C - Last Filed: 04/28/25 12:14> Physical Exam 2 Vital Signs: Vital Signs: Last Vital Signs Temp 97.7 F 04/28/25 03:16 Pulse 69 04/28/25 03:16 Resp 18 04/28/25 03:16 BP 123/65 04/28/25 03:16 Pulse Ox 98 04/28/25 03:16 O2 Del Method Room Air 04/28/25 03:16 BMI result Body Mass Index 23.3 <Michele Bee PA-C - Last Filed: 04/28/25 12:14> Const: General: comfortable and no acute distress <Michele Bee PA-C - Last Filed: 04/28/25 12:14> Orientation/consciousness: patient oriented x3 <Michele Bee PA-C - Last Filed: 04/28/25 12:14> Resp: Effort & Inspection: normal respiratory effort and able to speak in complete sentences <Michele Bee PA-C - Last Filed: 04/28/25 12:14> GI: Other: Midline incision dressing saturated, serosanguineous. <Michele Bee PA-C - Last Filed: 04/28/25 12:14> Inspection: No distended <CYDNEY Elliott Last Filed: 04/28/25 12:14> Palpation (GI): Soft to palpation, Tenderness to palpation present (GI) (Incisional), no guarding and not rigid <Michele Bee PA-C - Last Filed: 04/28/25 12:14> Neuro: General: patient oriented x3 <Michele Bee PA-C - Last Filed: 04/28/25 12:14> Objective Data Active Medications Amlodipine Besylate (Amlodipine Besylate 10 Mg Tablet) 10 mg PO DAILY [facility]; Protocol Atorvastatin Calcium (Atorvastatin Calcium 40 Mg Tablet) 40 mg PO BEDTIME [facility] Last Admin: 04/27/25 19:49 Dose: 40 mg Documented By: ABBE Carvedilol (Carvedilol 6.25 Mg Tablet) 6.25 mg PO BID [facility]; Protocol Enoxaparin Sodium (Enoxaparin Sodium 40 Mg/0.4 Ml Syringe) 40 mg SUBCUT Q24H [facility] Ferrous Sulfate (Ferrous Sulfate 324 Mg Tablet.Dr) 324 mg PO DAILY [facility] Hydromorphone HCl (Hydromorphone Hcl 0.5 Mg/0.5 Ml Syringe) 0.5 mg IVPUSH Q3H PRN; Protocol PRN Reason: Pain, Severe (Pain Scale 7-10) Acetaminophen (Ofirmev) 1,000 mg in 100 mls @ 400 mls/hr IV Q6H PRN PRN Reason: Pain, Mild (Pain Scale 1-3) Dextrose/Lactated Ringer's (D5lr) 1,000 mls @ 125 mls/hr IVCONT .Q8H PATEL Last Admin: 04/28/25 04:51 Dose: 125 mls/hr Documented By: ABBE Losartan Potassium (Losartan Potassium 50 Mg Tablet) 100 mg PO DAILY [facility]; Protocol Last Admin: 04/27/25 14:04 Dose: 100 mg Documented By: LEFJOVANA Methocarbamol (Methocarbamol 750 Mg Tablet) 750 mg PO Q8H PRN PRN Reason: Muscle Spasm Ondansetron HCl (Ondansetron Hcl 4 Mg/2 Ml Vial) 4 mg IVPUSH QID PRN PRN Reason: Nausea Oxycodone HCl (Oxycodone Hcl Immed Release 5 Mg Tablet) 5 mg PO Q6H PRN PRN Reason: Pain, Moderate(Pain Scale 4-6) Last Admin: 04/28/25 04:54 Dose: 5 mg Documented By: ABBE <Michele Bee PA-C - Last Filed: 04/28/25 12:14> Labs CBC & Chem 7: 04/28/25 05:40 04/28/25 05:40 <Michele Bee PA-C - Last Filed: 04/28/25 12:14> Labs: Laboratory Results - last 24 hr 04/28/25 05:40 MCV 101.5 H MCH 36.8 H MCHC 36.2 H RDW 14.1 Plt Count 77 L D MPV 8.8 L Immature Gran % (Auto) 1.0 H Neut % (Auto) 8.4 L Lymph % (Auto) 88.9 H Mcculloch % (Auto) 1.6 L Eos % (Auto) 0.0 Baso % (Auto) 0.1 Lymph # (Auto) 9.7 H Mcculloch # (Auto) 0.2 Eos # (Auto) 0.0 Baso # (Auto) 0.0 Abs Immat Gran (auto) 0.11 H Absolute Neuts (auto) 0.9 L Absolute Nucleated RBC 0.000 Nucleated RBC % (auto) 0.0 Smear Tech's Comments VERIFIED Anion Gap 11 L Estim Creat Clear Calc 87.3 Estimated GFR > 60 Random Glucose 144 H Calcium 8.2 L D <Michele Bee PA-C - Last Filed: 04/28/25 12:14> Procedures Date of Service Date of Service: 04/28/25 <Michele Bee PA-C - Last Filed: 04/28/25 12:14> 04/28/25 <Paul Bray MD - Last Filed: 04/28/25 15:55> Progress Note: A&P Assessment and plan (1) S/P left colectomy: Status: Acute <Michele Bee PA-C - Last Filed: 04/28/25 12:14> (2) History of colostomy reversal: Status: Acute <Michele Bee PA-C - Last Filed: 04/28/25 12:14> Assessment and Plan: 75-year-old male POD 1 s/p colostomy reversal. Patient doing very well, pain well controlled at rest with medication. Currently /10. He is not experiencing nausea or vomiting. Tolerating clear liquid diet. No flatus or bowel movement at this point. He is using spirometry, would like Alegria removed so he can ambulate. On exam the abdomen is soft, tender around the incision sites. The midline incision dressing is saturated with serosanguineous fluid, we will have the dressing changed. Remove Alegria Continue clear liquids, we will advance when bowel function returning Ambulation spirometry as tolerated Pain control <Michele Bee PA-C - Last Filed: 04/28/25 12:14> 75-year-old male POD 1 s/p colostomy reversal. Patient doing very well, pain well controlled at rest with medication. Currently 12/16. He is not experiencing nausea or vomiting. Tolerating clear liquid diet. No flatus or bowel movement at this point. He is using spirometry, would like Alegria removed so he can ambulate. On exam the abdomen is soft, tender around the incision sites. The midline incision dressing is saturated with serosanguineous fluid, we will have the dressing changed. Remove Alegria Continue clear liquids, we will advance when bowel function returning Ambulation spirometry as tolerated Pain control Patient seen and examined on afternoon rounds. He reports having a great day with minimal abdominal pain. He was having some serous drainage from his incision. He reports passing some flatus this afternoon. He was tolerating clear liquids without nausea or vomiting. Patient encouraged to continue to get out of bed and ambulate and use the incentive spirometer. We will continue clear liquids for now. <Paul Bray MD - Last Filed: 04/28/25 15:55> Time Spent With Patient Time: Total time managing care of this patient today ____ minutes. <Michele Bee PA-C - Last Filed: 04/28/25 12:14> Quality Stroke Does the patient have a stroke diagnosis?: No <Michele Bee PA-C - Last Filed: 04/28/25 12:14> VTE Prior VTE?: No <Michele Bee PA-C - Last Filed: 04/28/25 12:14> VTE Risk Level:: Surgical - moderate <Michele Bee PA-C - Last Filed: 04/28/25 12:14> VTE Device Contraindication: N/A - Device Ordered <Michele Bee PA-C - Last Filed: 04/28/25 12:14> VTE Drug Contraindication: N/A - Med Ordered <Michele Bee PA-C - Last Filed: 04/28/25 12:14>
--- NOTE | 2025-04-28 07:42 | PC.NURSE ---
soares cath removed at 0730. patient due to void at 1330
[2025-04-28] MEDS: Ferrous Sulfate 324 MG TABLET.DR PO (08:41)
--- NOTE | 2025-04-28 12:18 | HO.POSTANES ---
Post Anesthesia Evaluation Post Anesthesia Evaluation Date of Service: 04/28/25 Vital Signs: Vital Signs Temp Pulse Resp BP Pulse Ox O2 Del Method 04/28/25 07:44 97.5 F 61 16 110/62 99 Room Air 04/28/25 03:16 97.7 F 69 18 123/65 98 Room Air Anesthesia: General Endotracheal-GETA Mental Status: Awake Pain Control: Satisfactory Nausea/Vomiting: None Hydration: Adequate Anesthesia-Related Issues: No Anes. Related Issues
--- NOTE | 2025-04-28 16:25 | MHC.CM.PN ---
PT REPORTS HE LIVES WITH HIS S/O AND IS INDEPENDENT WITH CARE PT USES A CANE AND HAS NO SERVICES HCP ON FILE PCP: W[facility] IMM DELIVERED DCP: HOME VIA PRIVATE TRANSPORT
[2025-04-29] VITALS (12 sets, daily range): BP systolic 104–146; BP diastolic 56–74; PULSE 66–78; RESP 16–20; TEMP 36.1–36.8; O2SAT 96–98
--- NOTE | 2025-04-29 00:05 | PM.EVENT ---
Event Note Date of Service: 04/29/25 Event Note: Reviewed labs and noticed low hematocrit. Will order 1 unit prbc. Consent obtained Time Spent With Patient Time: Total time managing care of this patient today ____ minutes.
[2025-04-29 07:00] LABS: Imm Gran Abs Auto 0.06 X10*3/uL (0.00-0.03); Imm Gran Pct Auto 1.2 % (0.0-0.4); Lymphocytes Absolute Auto 4.5 X10*3/uL (1.2-4.9); MANUAL DIFF FLAG SCAN; Mean Corpuscular HGB Conc 35.3 g/dl (31.0-36.0); Mean Corpuscular Hemoglobin 35.5 pg (27.0-33.0); Mean Corpuscular Volume 100.5 fL (80.0-98.0); NRBC Abs Auto 0.000 X10*3/uL (0.0-0.012); NRBC Pct Auto 0.0 /100WBC (0.0-0.2); Red Blood Count 1.86 X10*6/uL (4.60-5.80); SCAN SMEAR FLAG 1; White Blood Count 5.2 X10*3/uL (4.8-10.8)
[2025-04-29] MEDS: oxyCODONE HCl Immed Release 5 MG TABLET PO ×3 (07:19→15:27)
[2025-04-29 07:28] LABS: Platelet Count 58 X10*3/uL (160-400)
[2025-04-29 07:31] LABS: Hematocrit 18.7 % (42.0-52.0); Hemoglobin 6.6 g/dl (14.0-18.0)
[2025-04-29] MEDS: Ferrous Sulfate 324 MG TABLET.DR PO (07:41)
--- NOTE | 2025-04-29 08:00 | PM.PNGS ---
Subjective Subjective Date of Service: 04/29/25 <Michele Bee PA-C - Last Filed: 04/29/25 08:13> 04/29/25 <Paul Bray MD - Last Filed: 04/29/25 15:28> Interval history: patient feels better today. recieved a unit of blood last night. denies shortness of breath, dizziness. has been OOB. He reports passing gas via rectum, no bowel movement. reports his dressing was changed twice yesterday for bleeding <Michele Bee PA-C - Last Filed: 04/29/25 08:13> Physical Exam Vital Signs: Vital Signs: Last Vital Signs Temp 98.3 F 04/29/25 07:27 Pulse 74 04/29/25 07:27 Resp 16 04/29/25 07:27 BP 133/74 04/29/25 07:27 Pulse Ox 98 04/29/25 07:27 O2 Del Method Room Air 04/29/25 07:27 BMI result Body Mass Index 23.3 <Michele Bee PA-C - Last Filed: 04/29/25 08:13> Const: General: comfortable and no acute distress <Michele Bee PA-C - Last Filed: 04/29/25 08:13> Orientation/consciousness: patient oriented x3 <CYDNEY Elliott Last Filed: 04/29/25 08:13> Resp: Effort & Inspection: normal respiratory effort and able to speak in complete sentences <Michele Bee PA-C - Last Filed: 04/29/25 08:13> GI: Other: bloody drainage from incision sites, no purulence <Michele Bee PA-C - Last Filed: 04/29/25 08:13> Inspection: No distended <CYDNEY Elliott Last Filed: 04/29/25 08:13> Palpation (GI): Soft to palpation, Tenderness to palpation present (GI) (incision site), no guarding and not rigid <CYDNEY Elliott Last Filed: 04/29/25 08:13> Neuro: General: patient oriented x3 <CYDNEY Elliott Last Filed: 04/29/25 08:13> Objective Data Active Medications Amlodipine Besylate (Amlodipine Besylate 10 Mg Tablet) 10 mg PO DAILY [facility]; Protocol Last Admin: 04/29/25 07:40 Dose: 10 mg Documented By: TANG Atorvastatin Calcium (Atorvastatin Calcium 40 Mg Tablet) 40 mg PO BEDTIME [facility] Last Admin: 04/28/25 20:14 Dose: 40 mg Documented By: FRANCESCA Carvedilol (Carvedilol 6.25 Mg Tablet) 6.25 mg PO BID [facility]; Protocol Last Admin: 04/29/25 07:41 Dose: 6.25 mg Documented By: TANG Ferrous Sulfate (Ferrous Sulfate 324 Mg Tablet.Dr) 324 mg PO DAILY [facility] Last Admin: 04/29/25 07:41 Dose: 324 mg Documented By: TANG Hydromorphone HCl (Hydromorphone Hcl 0.5 Mg/0.5 Ml Syringe) 0.5 mg IVPUSH Q3H PRN; Protocol PRN Reason: Pain, Severe (Pain Scale 7-10) Acetaminophen (Ofirmev) 1,000 mg in 100 mls @ 400 mls/hr IV Q6H PRN PRN Reason: Pain, Mild (Pain Scale 1-3) Losartan Potassium (Losartan Potassium 50 Mg Tablet) 100 mg PO DAILY [facility]; Protocol Last Admin: 04/29/25 07:41 Dose: 100 mg Documented By: TANG Methocarbamol (Methocarbamol 750 Mg Tablet) 750 mg PO Q8H PRN PRN Reason: Muscle Spasm Ondansetron HCl (Ondansetron Hcl 4 Mg/2 Ml Vial) 4 mg IVPUSH QID PRN PRN Reason: Nausea Oxycodone HCl (Oxycodone Hcl Immed Release 5 Mg Tablet) 5 mg PO Q4H PRN PRN Reason: Pain, Moderate(Pain Scale 4-6) Last Admin: 04/29/25 07:19 Dose: 5 mg Documented By: TANG <Michele Bee PA-C - Last Filed: 04/29/25 08:13> Labs CBC & Chem 7: 04/29/25 06:03 04/28/25 05:40 <Michele Bee PA-C - Last Filed: 04/29/25 08:13> Labs: Laboratory Results - last 24 hr 04/28/25 04/29/25 22:05 06:03 MCV 100.5 H MCH 35.5 H MCHC 35.3 RDW 15.8 Plt Count 58 L MPV 9.1 L Immature Gran % (Auto) 1.2 H Neut % (Auto) 10.6 L Lymph % (Auto) 86.4 H Irwin % (Auto) 1.2 L Eos % (Auto) 0.4 Baso % (Auto) 0.2 Lymph # (Auto) 4.5 [place]win # (Auto) 0.1 Eos # (Auto) 0.0 Baso # (Auto) 0.0 Abs Immat Gran (auto) 0.06 H Absolute Neuts (auto) 0.6 L Absolute Nucleated RBC 0.000 Nucleated RBC % (auto) 0.0 Smear Tech's Comments VERIFIED Blood Type A Positive Antibody Screen NEGATIVE Crossmatch See Detail <Michele Bee PA-C - Last Filed: 04/29/25 08:13> Procedures Date of Service Date of Service: 04/29/25 <Michele Bee PA-C - Last Filed: 04/29/25 08:13> 04/29/25 <Paul Bray MD - Last Filed: 04/29/25 15:28> Progress Note: A&P Assessment and plan (1) S/P left colectomy: Status: Acute <Michele Bee PA-C - Last Filed: 04/29/25 08:13> (2) History of colostomy reversal: Status: Acute <Michele Bee PA-C - Last Filed: 04/29/25 08:13> Assessment and Plan: 75-year-old male POD 1 s/p colostomy reversal. Patient doing very well, pain well controlled at rest with medication.He is not experiencing nausea or vomiting. Tolerating clear liquid diet without symptoms. Passing flatus, bowel movement at this point. He is using spirometry and ambulating. On exam the abdomen is soft, tender around the incision sites. The midline incision dressing is again saturated with serosanguineous fluid, we will continue to change dressings as needed. Last night he was given 1 unit of PRBC overnight for low hematocrit. This morning h/h decreased again, now 6.6/18.7 plt 58. additional transfusion ordered this morning, will check coags as well. Holding lovenox for now. Will continue with compression boots, spirometry. Will resume lovenox when h/h stable, incision sites dry. hold lovenox second transfusion ordered, will check coags and monitor cbc daily will advance to regular diet Ambulation spirometry as tolerated Pain control <Michele Bee PA-C - Last Filed: 04/29/25 08:13> 75-year-old male POD 1 s/p colostomy reversal. Patient doing very well, pain well controlled at rest with medication.He is not experiencing nausea or vomiting. Tolerating clear liquid diet without symptoms. Passing flatus, bowel movement at this point. He is using spirometry and ambulating. On exam the abdomen is soft, tender around the incision sites. The midline incision dressing is again saturated with serosanguineous fluid, we will continue to change dressings as needed. Last night he was given 1 unit of PRBC overnight for low hematocrit. This morning h/h decreased again, now 6.6/18.7 plt 58. additional transfusion ordered this morning, will check coags as well. Holding lovenox for now. Will continue with compression boots, spirometry. Will resume lovenox when h/h stable, incision sites dry. hold lovenox second transfusion ordered, will check coags and monitor cbc daily will advance to regular diet Ambulation spirometry as tolerated Pain control Agree with the above assessment and plan. H&H has drifted down as has his platelets. He has a long history of anemia. Agree with holding Lovenox. Patient had a moderate-sized bloody bowel movement this afternoon. Reports some stool within the the bowel movement. Was up and ambulating and denied feeling excessively dizzy. We will transfuse 2 units PRBCs this afternoon. Patient informed and agrees. We will recheck CBC in a.m.. <Paul Bray MD - Last Filed: 04/29/25 15:28> Time Spent With Patient Time: Total time managing care of this patient today ____ minutes. <Michele Bee PA-C - Last Filed: 04/29/25 08:13> Quality Stroke Does the patient have a stroke diagnosis?: No <Michele Bee PA-C - Last Filed: 04/29/25 08:13> VTE Prior VTE?: No <Michele Bee PA-C - Last Filed: 04/29/25 08:13> VTE Risk Level:: Surgical - moderate <Michele Bee PA-C - Last Filed: 04/29/25 08:13> VTE Device Contraindication: N/A - Device Ordered <Michele Bee PA-C - Last Filed: 04/29/25 08:13> VTE Drug Contraindication: N/A - Med Ordered <Michele Bee PA-C - Last Filed: 04/29/25 08:13>
[2025-04-29 13:30] LABS: INTERNATIONAL NORM RATIO 1.0 (0.9-1.1); Prothrombin Time 11.6 SEC (10.9-12.4)
[2025-04-30] VITALS (9 sets, daily range): BP systolic 110–130; BP diastolic 54–69; PULSE 62–76; RESP 12–18; TEMP 36.2–36.6; O2SAT 95–98
[2025-04-30] MEDS: oxyCODONE HCl Immed Release 5 MG TABLET PO ×4 (00:32→22:26)
[2025-04-30 06:19] LABS: Hematocrit 22.2 % (42.0-52.0); Hemoglobin 8.1 g/dl (14.0-18.0); Imm Gran Abs Auto 0.06 X10*3/uL (0.00-0.03); Imm Gran Pct Auto 1.1 % (0.0-0.4); Lymphocytes Absolute Auto 4.4 X10*3/uL (1.2-4.9); MANUAL DIFF FLAG SCAN; Mean Corpuscular HGB Conc 36.5 g/dl (31.0-36.0); Mean Corpuscular Hemoglobin 34.5 pg (27.0-33.0); Mean Corpuscular Volume 94.5 fL (80.0-98.0); NRBC Abs Auto 0.000 X10*3/uL (0.0-0.012); NRBC Pct Auto 0.0 /100WBC (0.0-0.2); Platelet Count 63 X10*3/uL (160-400); Red Blood Count 2.35 X10*6/uL (4.60-5.80); SCAN SMEAR FLAG 1; White Blood Count 5.6 X10*3/uL (4.8-10.8)
[2025-04-30] MEDS: Ferrous Sulfate 324 MG TABLET.DR PO (08:32)
--- NOTE | 2025-04-30 08:44 | P.PNGS_ITS ---
Subjective Subjective Date of Service: 04/30/25 Interval history: Patient had a good night, was able to get some sleep. He reports no further bloody BM overnight. His abdominal pain is minimal and well controlled with the current pain medication. He is planning on getting out of bed and ambulating today. He is considering going home tomorrow if he tolerates a regular diet. Physical Exam 2 Vital Signs: Vital Signs: Last Vital Signs Temp 97.8 F 04/30/25 07:42 Pulse 70 04/30/25 07:42 Resp 12 04/30/25 07:42 BP 115/59 L 04/30/25 07:42 Pulse Ox 95 04/30/25 07:42 O2 Del Method Room Air 04/30/25 07:42 BMI result Body Mass Index 23.3 Const: General: no acute distress Nutritional Appearance: well nourished Orientation/consciousness: patient oriented x3 Resp: Effort & Inspection: normal respiratory effort, no audible wheezes, no cough and no respiratory distress GI: Other: Dressings changed to abdominal incision. A small amount of bloody discharge noted in the lower incision otherwise clean and intact. Ostomy site is clean and intact as well. Neuro: General: patient oriented x3 Extrem: Other: No edema Objective Data Active Medications Amlodipine Besylate (Amlodipine Besylate 10 Mg Tablet) 10 mg PO DAILY [facility]; Protocol Last Admin: 04/30/25 08:32 Dose: 10 mg Documented By: CECILIA Atorvastatin Calcium (Atorvastatin Calcium 40 Mg Tablet) 40 mg PO BEDTIME [facility] Last Admin: 04/29/25 20:23 Dose: 40 mg Documented By: FRANCESCA Carvedilol (Carvedilol 3.125 Mg Tablet) 6.25 mg PO BID [facility]; Protocol Last Admin: 04/30/25 08:32 Dose: 6.25 mg Documented By: CECILIA Ferrous Sulfate (Ferrous Sulfate 324 Mg Tablet.) 324 mg PO DAILY [facility] Last Admin: 04/30/25 08:32 Dose: 324 mg Documented By: CECILIA Hydromorphone HCl (Hydromorphone Hcl 0.5 Mg/0.5 Ml Syringe) 0.5 mg IVPUSH Q3H PRN; Protocol PRN Reason: Pain, Severe (Pain Scale 7-10) Acetaminophen (Ofirmev) 1,000 mg in 100 mls @ 400 mls/hr IV Q6H PRN PRN Reason: Pain, Mild (Pain Scale 1-3) Last Infusion: 04/29/25 09:50 Dose: Infused Documented By: TANG Losartan Potassium (Losartan Potassium 50 Mg Tablet) 100 mg PO DAILY [facility]; Protocol Last Admin: 04/30/25 08:32 Dose: 100 mg Documented By: CECILAI Methocarbamol (Methocarbamol 750 Mg Tablet) 750 mg PO Q8H PRN PRN Reason: Muscle Spasm Ondansetron HCl (Ondansetron Hcl 4 Mg/2 Ml Vial) 4 mg IVPUSH QID PRN PRN Reason: Nausea Oxycodone HCl (Oxycodone Hcl Immed Release 5 Mg Tablet) 5 mg PO Q4H PRN PRN Reason: Pain, Moderate(Pain Scale 4-6) Last Admin: 04/30/25 00:32 Dose: 5 mg Documented By: FRANCESCA Labs 04/30/25 05:10 04/28/25 05:40 Labs: Laboratory Results - last 24 hr 04/28/25 04/29/25 04/30/25 22:05 13:01 05:10 MCV 94.5 D MCH 34.5 H MCHC 36.5 H RDW 17.8 H Plt Count 63 L MPV 9.6 Immature Gran % (Auto) 1.1 H Neut % (Auto) 9.7 L Lymph % (Auto) 79.0 H Hand % (Auto) 9.5 Eos % (Auto) 0.5 Baso % (Auto) 0.2 Lymph # (Auto) 4.4 Hand # (Auto) 0.5 Eos # (Auto) 0.0 Baso # (Auto) 0.0 Abs Immat Gran (auto) 0.06 H Absolute Neuts (auto) 0.5 L Absolute Nucleated RBC 0.000 Nucleated RBC % (auto) 0.0 Smear Tech's Comments VERIFIED PT 11.6 INR 1.0 Blood Type A Positive Antibody Screen NEGATIVE Crossmatch See Detail Procedures Date of Service Date of Service: 04/30/25 Progress Note: A&P Assessment and plan (1) History of colostomy reversal: Status: Acute (2) Sigmoid volvulus: Status: Resolved Plan POD 3 following closure of colostomy. He did have a bloody bowel movement yesterday and received 2 additional units of PRBCs. This morning is H&H is appropriately improved. He does feel improved this morning with less abdominal pain and no further bloody bowel movements. Wounds do have a small amount of bloody discharge from the lower incision. Dressings were changed. Plan to advance diet to regular today. If patient tolerates this well potentially could be discharged tomorrow to home. Time Spent With Patient Time: Total time managing care of this patient today ____ minutes. Quality Stroke Does the patient have a stroke diagnosis?: No VTE Prior VTE?: No VTE Risk Level:: Surgical - moderate VTE Device Contraindication: N/A - Device Ordered VTE Drug Contraindication: N/A - Med Ordered
[2025-05-01 03:55] VITALS: BP 115/64; PULSE 68; RESP 16; TEMP 36.4; O2SAT 98
[2025-05-01 06:59] LABS: Hematocrit 22.2 % (42.0-52.0); Hemoglobin 7.9 g/dl (14.0-18.0); Mean Corpuscular HGB Conc 35.6 g/dl (31.0-36.0); Mean Corpuscular Hemoglobin 34.2 pg (27.0-33.0); Mean Corpuscular Volume 96.1 fL (80.0-98.0); NRBC Abs Auto 0.000 X10*3/uL (0.0-0.012); NRBC Pct Auto 0.0 /100WBC (0.0-0.2); Red Blood Count 2.31 X10*6/uL (4.60-5.80)
[2025-05-01 07:00] LABS: Platelet Count 64 X10*3/uL (160-400); WBC ABN SCTR FOR CBC 1; White Blood Count 4.3 X10*3/uL (4.8-10.8)
[2025-05-01 08:13] VITALS: BP 126/73; PULSE 69; RESP 18; TEMP 36.3; O2SAT 97
[2025-05-01 08:13] LABS: Band Neutrophils Percent 1 % (3-5); Basophils Percent Manual 1 % (0-2); Lymphocytes Absolute Manual 3.9 X10*3/uL (1.2-4.9); Lymphocytes Percent Manual 91 % (20-40); Monocytes Percent Manual 1 % (2-11); Neutrophils Absolute Manual 0.3 X10*3/uL (2.0-8.3); Neutrophils Percent Manual 6 % (45-73)
[2025-05-01 08:14] LABS: Burr Cells 1+ (0-2) /OIF; RBC Morphology NOTED
[2025-05-01] MEDS: Ferrous Sulfate 324 MG TABLET.DR PO (08:49)
--- NOTE | 2025-05-01 08:56 | P.PNGS_ITS ---
Subjective Subjective Date of Service: 05/01/25 Interval history: Patient had a soft brown bowel movement reported yesterday. He reports only minimal blood during the day. He reports some problems with his diet yesterday, food arriving cold and now as requested. He is hungry this morning. Physical Exam 2 Vital Signs: Vital Signs: Last Vital Signs Temp 97.4 F 05/01/25 08:13 Pulse 69 05/01/25 08:13 Resp 18 05/01/25 08:13 BP 126/73 05/01/25 08:13 Pulse Ox 97 05/01/25 08:13 O2 Del Method Room Air 05/01/25 08:13 BMI result Body Mass Index 23.3 Const: General: no acute distress Nutritional Appearance: well nourished Orientation/consciousness: patient oriented x3 Resp: Effort & Inspection: normal respiratory effort, no audible wheezes, no cough and no respiratory distress GI: Other: Dressings changed to abdominal incision. Still a small amount of bloody discharge in the lower incision otherwise wounds are clean and intact. Clean dressings applied. Skin: Other: Warm, dry, no rash. Neuro: General: patient oriented x3 Extrem: Other: No edema Objective Data Active Medications Amlodipine Besylate (Amlodipine Besylate 10 Mg Tablet) 10 mg PO DAILY [facility]; Protocol Last Admin: 05/01/25 08:48 Dose: 10 mg Documented By: CECILIA Atorvastatin Calcium (Atorvastatin Calcium 40 Mg Tablet) 40 mg PO BEDTIME [facility] Last Admin: 04/30/25 20:51 Dose: 40 mg Documented By: CASTILRafa Calcium Carbonate (Calcium Carbonate 750 Mg Tab.Chew) 750 mg PO Q4H PRN PRN Reason: Heartburn Last Admin: 04/30/25 10:39 Dose: 750 mg Documented By: CECILIA Carvedilol (Carvedilol 3.125 Mg Tablet) 6.25 mg PO BID [facility]; Protocol Last Admin: 05/01/25 08:49 Dose: 6.25 mg Documented By: CECILIA Ferrous Sulfate (Ferrous Sulfate 324 Mg Tablet.Dr) 324 mg PO DAILY [facility] Last Admin: 05/01/25 08:49 Dose: 324 mg Documented By: CECILIA Hydromorphone HCl (Hydromorphone Hcl 0.5 Mg/0.5 Ml Syringe) 0.5 mg IVPUSH Q3H PRN; Protocol PRN Reason: Pain, Severe (Pain Scale 7-10) Acetaminophen (Ofirmev) 1,000 mg in 100 mls @ 400 mls/hr IV Q6H PRN PRN Reason: Pain, Mild (Pain Scale 1-3) Last Infusion: 04/29/25 09:50 Dose: Infused Documented By: TANG Losartan Potassium (Losartan Potassium 50 Mg Tablet) 100 mg PO DAILY [facility]; Protocol Last Admin: 05/01/25 08:49 Dose: 100 mg Documented By: CECILIA Methocarbamol (Methocarbamol 750 Mg Tablet) 750 mg PO Q8H PRN PRN Reason: Muscle Spasm Ondansetron HCl (Ondansetron Hcl 4 Mg/2 Ml Vial) 4 mg IVPUSH QID PRN PRN Reason: Nausea Oxycodone HCl (Oxycodone Hcl Immed Release 5 Mg Tablet) 5 mg PO Q4H PRN PRN Reason: Pain, Moderate(Pain Scale 4-6) Last Admin: 04/30/25 22:26 Dose: 5 mg Documented By: AILYN Labs 05/01/25 05:18 04/28/25 05:40 Labs: Laboratory Results - last 24 hr 05/01/25 05:18 MCV 96.1 MCH 34.2 H MCHC 35.6 RDW 17.2 H Plt Count 64 L MPV 8.9 L Immature Gran % (Auto) Cancelled Neut % (Auto) Cancelled Lymph % (Auto) Cancelled [place] % (Auto) Cancelled Eos % (Auto) Cancelled Baso % (Auto) Cancelled Lymph # (Auto) Cancelled [place] # (Auto) Cancelled Eos # (Auto) Cancelled Baso # (Auto) Cancelled Abs Immat Gran (auto) Cancelled Absolute Neuts (auto) Cancelled Absolute Nucleated RBC 0.000 Nucleated RBC % (auto) 0.0 Neutrophils % (Manual) 6 L Band Neutrophils % 1 L Lymphocytes % (Manual) 91 H Monocytes % (Manual) 1 L Basophils % (Manual) 1 Abs Neuts (Manual) 0.3 L Lymphocytes # (Manual) 3.9 Platelet Estimate DECREASED Plt Morphology Comment NORMAL RBC Morphology NOTED Jimmy Cells 1+ (0-2) Procedures Date of Service Date of Service: 05/01/25 Progress Note: A&P Assessment and plan (1) History of colostomy reversal: Status: Acute (2) Sigmoid volvulus: Status: Resolved Plan POD 4 following closure of colostomy. He has had no further bloody bowel movements in H&H is fairly stable following a total of 3 units PRBCs. Patient reports feeling hungry this morning and we will continue with a regular diet. We will recheck CBC in a.m.. Continue to monitor mild incisional bleeding. Potential discharge to home tomorrow. Time Spent With Patient Time: Total time managing care of this patient today ____ minutes. Quality Stroke Does the patient have a stroke diagnosis?: No VTE Prior VTE?: No VTE Risk Level:: Surgical - moderate VTE Device Contraindication: N/A - Device Ordered VTE Drug Contraindication: N/A - Med Ordered
[2025-05-01 12:30] VITALS: BP 117/71; PULSE 71; RESP 18; TEMP 36.1; O2SAT 98
[2025-05-01] MEDS: oxyCODONE HCl Immed Release 5 MG TABLET PO ×2 (14:43→21:01)
[2025-05-01 16:07] VITALS: BP 133/66; PULSE 73; RESP 12; TEMP 36.1; O2SAT 97
--- NOTE | 2025-05-01 17:06 | PC.NURSE ---
Pt tolerating po well. No BM yet but passing flatus. Ambulated in [place] twice this shift. Medicated X1 for pain with oxycodone with good effect, Dressing to abdomen changed this am by MD, remains CDI
[2025-05-01 19:28] VITALS: BP 139/68; PULSE 75; RESP 16; TEMP 36.3; O2SAT 99
[2025-05-02] VITALS (7 sets, daily range): BP systolic 113–142; BP diastolic 60–78; PULSE 65–75; RESP 14–18; TEMP 36.2–36.6; O2SAT 95–97
[2025-05-02 06:53] LABS: Hematocrit 22.2 % (42.0-52.0); Hemoglobin 7.8 g/dl (14.0-18.0); Imm Gran Abs Auto 0.06 X10*3/uL (0.00-0.03); Imm Gran Pct Auto 1.3 % (0.0-0.4); Lymphocytes Absolute Auto 3.7 X10*3/uL (1.2-4.9); MANUAL DIFF FLAG SCAN; Mean Corpuscular HGB Conc 35.1 g/dl (31.0-36.0); Mean Corpuscular Hemoglobin 34.1 pg (27.0-33.0); Mean Corpuscular Volume 96.9 fL (80.0-98.0); NRBC Abs Auto 0.000 X10*3/uL (0.0-0.012); NRBC Pct Auto 0.0 /100WBC (0.0-0.2); Red Blood Count 2.29 X10*6/uL (4.60-5.80); SCAN SMEAR FLAG 1; White Blood Count 4.8 X10*3/uL (4.8-10.8)
[2025-05-02 06:54] LABS: Platelet Count 82 X10*3/uL (160-400)
[2025-05-02] MEDS: Ferrous Sulfate 324 MG TABLET.DR PO (07:32)
[2025-05-02] MEDS: oxyCODONE HCl Immed Release 5 MG TABLET PO ×3 (07:32→20:07)
--- NOTE | 2025-05-02 07:57 | PM.PNGS ---
Subjective Subjective Date of Service: 05/02/25 Interval history: pain is well controlled. He is increasing ambulation. passing gas, has passed two total bowel movements, first was grossly bloody, second was more formed, brown with smaller amounts of blood per nursing staff, haydee states he could not appreciate blood. tolerating diet, although food has been cold when it arrives to him. He denies fevers or chills, nause/vomiting. Physical Exam Vital Signs: Vital Signs: Last Vital Signs Temp 97.8 F 05/02/25 04:00 Pulse 73 05/02/25 04:00 Resp 16 05/02/25 04:00 BP 114/63 05/02/25 04:00 Pulse Ox 97 05/02/25 04:00 O2 Del Method Room Air 05/02/25 04:00 BMI result Body Mass Index 23.3 Const: General: comfortable and no acute distress Orientation/consciousness: patient oriented x3 Resp: Effort & Inspection: normal respiratory effort and able to speak in complete sentences GI: Other: incision sites, steri strips in place, there is some small oozing from the inferior aspect of the midline incision. Inspection: No distended Palpation (GI): Soft to palpation and Tenderness to palpation present (GI) (previous stoma site) Neuro: General: patient oriented x3 Objective Data Active Medications Amlodipine Besylate (Amlodipine Besylate 10 Mg Tablet) 10 mg PO DAILY [facility]; Protocol Last Admin: 05/02/25 07:32 Dose: 10 mg Documented By: TANG Atorvastatin Calcium (Atorvastatin Calcium 40 Mg Tablet) 40 mg PO BEDTIME [facility] Last Admin: 05/01/25 21:01 Dose: 40 mg Documented By: NAWAF Calcium Carbonate (Calcium Carbonate 750 Mg Tab.Chew) 750 mg PO Q4H PRN PRN Reason: Heartburn Last Admin: 04/30/25 10:39 Dose: 750 mg Documented By: CECILIA Carvedilol (Carvedilol 3.125 Mg Tablet) 6.25 mg PO BID [facility]; Protocol Last Admin: 05/02/25 07:32 Dose: 6.25 mg Documented By: TANG Ferrous Sulfate (Ferrous Sulfate 324 Mg Tablet.Dr) 324 mg PO DAILY [facility] Last Admin: 05/02/25 07:32 Dose: 324 mg Documented By: TANG Hydromorphone HCl (Hydromorphone Hcl 0.5 Mg/0.5 Ml Syringe) 0.5 mg IVPUSH Q3H PRN; Protocol PRN Reason: Pain, Severe (Pain Scale 7-10) Acetaminophen (Ofirmev) 1,000 mg in 100 mls @ 400 mls/hr IV Q6H PRN PRN Reason: Pain, Mild (Pain Scale 1-3) Last Infusion: 04/29/25 09:50 Dose: Infused Documented By: TANG Losartan Potassium (Losartan Potassium 50 Mg Tablet) 100 mg PO DAILY [facility]; Protocol Last Admin: 05/02/25 07:33 Dose: 100 mg Documented By: TANG Methocarbamol (Methocarbamol 750 Mg Tablet) 750 mg PO Q8H PRN PRN Reason: Muscle Spasm Ondansetron HCl (Ondansetron Hcl 4 Mg/2 Ml Vial) 4 mg IVPUSH QID PRN PRN Reason: Nausea Oxycodone HCl (Oxycodone Hcl Immed Release 5 Mg Tablet) 5 mg PO Q4H PRN PRN Reason: Pain, Moderate(Pain Scale 4-6) Last Admin: 05/02/25 07:32 Dose: 5 mg Documented By: TANG Labs 05/01/25 05:18 04/28/25 05:40 Labs: Laboratory Results - last 24 hr 05/01/25 05:18 Neutrophils % (Manual) 6 L Band Neutrophils % 1 L Lymphocytes % (Manual) 91 H Monocytes % (Manual) 1 L Basophils % (Manual) 1 Abs Neuts (Manual) 0.3 L Lymphocytes # (Manual) 3.9 Platelet Estimate DECREASED Plt Morphology Comment NORMAL RBC Morphology NOTED Jimmy Cells 1+ (0-2) Procedures Date of Service Date of Service: 05/02/25 Progress Note: A&P Assessment and plan (1) History of colostomy reversal: Status: Acute Plan 75 year old male POD 5 s/p colostomy reversal. Patient doing well today. Pain controlled, tolerating diet. He is increasing his ambulation. Wants to have another nonbloody bowel movement prior to discharge. Feels ready to go home after that. On exam the abdomen is soft, tender primarily located at the previous stoma site. There is some mild oozing from the inferior aspect of the midline incision, dark blood. I redressed this with gauze, tape. Can continue this as needed. H/H pending at this time, appeared stable the previous 2 days following 3 units of PRBCs possible DC this afternoon Trend H/H when resulted continue with dressing changes as needed for incisional bleeding diet as tolerated ambulation as tolerated. Time Spent With Patient Time: Total time managing care of this patient today ____ minutes. Quality Stroke Does the patient have a stroke diagnosis?: No VTE Prior VTE?: No VTE Risk Level:: Surgical - moderate VTE Device Contraindication: N/A - Device Ordered VTE Drug Contraindication: N/A - Med Ordered
--- NOTE | 2025-05-02 12:57 | MHC.CM.PN ---
Patient not medically cleared for dc at this time. DP: home self care. CM will continue to follow.
[2025-05-03 03:38] VITALS: BP 124/66; PULSE 67; RESP 14; TEMP 36.4; O2SAT 96
[2025-05-03] MEDS: Ferrous Sulfate 324 MG TABLET.DR PO (07:51)
[2025-05-03 07:54] VITALS: BP 141/97; PULSE 67; RESP 18; TEMP 36.7; O2SAT 98
--- NOTE | 2025-05-03 08:01 | PM.PNGS ---
Subjective Subjective Date of Service: 05/03/25 <Michele Bee PA-C - Last Filed: 05/03/25 08:06> 05/03/25 <Paul Bray MD - Last Filed: 05/03/25 08:26> Interval history: doing well, no acute changes. pain is manageable mostly left sided with movement. tolerating diet. ambulating more. passing gas, still waiting on BM. <Michele Bee PA-C - Last Filed: 05/03/25 08:06> Physical Exam Vital Signs: Vital Signs: Last Vital Signs Temp 98.1 F 05/03/25 07:54 Pulse 67 05/03/25 07:54 Resp 18 05/03/25 07:54 BP 141/97 H 05/03/25 07:54 Pulse Ox 98 05/03/25 07:54 O2 Del Method Room Air 05/03/25 07:54 BMI result Body Mass Index 23.3 <Michele Bee PA-C - Last Filed: 05/03/25 08:06> Const: General: comfortable and no acute distress <Michele Bee PA-C - Last Filed: 05/03/25 08:06> Orientation/consciousness: patient oriented x3 <Michele Bee PA-C - Last Filed: 05/03/25 08:06> Resp: Effort & Inspection: normal respiratory effort and able to speak in complete sentences <Michele Bee PA-C - Last Filed: 05/03/25 08:06> GI: Other: very scan oozing from inferior midline incision. <Michele Bee PA-C - Last Filed: 05/03/25 08:06> Inspection: No distended <Michele Bee PA-C - Last Filed: 05/03/25 08:06> Palpation (GI): Soft to palpation, Tenderness to palpation present (GI) (incisional) and no guarding <CYDNEY Elliott Last Filed: 05/03/25 08:06> Neuro: General: patient oriented x3 <CYDNEY Elliott Last Filed: 05/03/25 08:06> Objective Data Active Medications Amlodipine Besylate (Amlodipine Besylate 10 Mg Tablet) 10 mg PO DAILY [facility]; Protocol Last Admin: 08/26/25 07:50 Dose: 10 mg Documented By: MAYELA Atorvastatin Calcium (Atorvastatin Calcium 40 Mg Tablet) 40 mg PO BEDTIME [facility] Last Admin: 05/02/25 20:08 Dose: 40 mg Documented By: ESAU Calcium Carbonate (Calcium Carbonate 750 Mg Tab.Chew) 750 mg PO Q4H PRN PRN Reason: Heartburn Last Admin: 04/30/25 10:39 Dose: 750 mg Documented By: CECILIA Carvedilol (Carvedilol 3.125 Mg Tablet) 6.25 mg PO BID [facility]; Protocol Last Admin: 05/03/25 07:51 Dose: 6.25 mg Documented By: MAYELA Ferrous Sulfate (Ferrous Sulfate 324 Mg Tablet.Dr) 324 mg PO DAILY [facility] Last Admin: 05/03/25 07:51 Dose: 324 mg Documented By: MAYELA Hydromorphone HCl (Hydromorphone Hcl 0.5 Mg/0.5 Ml Syringe) 0.5 mg IVPUSH Q3H PRN; Protocol PRN Reason: Pain, Severe (Pain Scale 7-10) Losartan Potassium (Losartan Potassium 50 Mg Tablet) 100 mg PO DAILY [facility]; Protocol Last Admin: 05/03/25 07:51 Dose: 100 mg Documented By: MAYELA Methocarbamol (Methocarbamol 750 Mg Tablet) 750 mg PO Q8H PRN PRN Reason: Muscle Spasm Ondansetron HCl (Ondansetron Hcl 4 Mg/2 Ml Vial) 4 mg IVPUSH QID PRN PRN Reason: Nausea Oxycodone HCl (Oxycodone Hcl Immed Release 5 Mg Tablet) 5 mg PO Q4H PRN PRN Reason: Pain, Moderate(Pain Scale 4-6) Last Admin: 05/02/25 20:07 Dose: 5 mg Documented By: ESAU <Michele Bee PA-C - Last Filed: 05/03/25 08:06> Labs CBC & Chem 7: 05/02/25 05:44 04/28/25 05:40 <Michele Bee PA-C - Last Filed: 05/03/25 08:06> Labs: Laboratory Results - last 24 hr 05/02/25 05:44 MCV 96.9 MCH 34.1 H MCHC 35.1 RDW 17.0 H Plt Count 82 L D MPV 9.0 L Immature Gran % (Auto) 1.3 H Neut % (Auto) 9.8 L Lymph % (Auto) 77.0 H [place] % (Auto) 10.9 Eos % (Auto) 0.8 Baso % (Auto) 0.2 Lymph # (Auto) 3.7 [place] # (Auto) 0.5 Eos # (Auto) 0.0 Baso # (Auto) 0.0 Abs Immat Gran (auto) 0.06 H Absolute Neuts (auto) 0.5 L Absolute Nucleated RBC 0.000 Nucleated RBC % (auto) 0.0 Smear Tech's Comments VERIFIED <Michele Bee PA-C - Last Filed: 05/03/25 08:06> Procedures Date of Service Date of Service: 05/03/25 <Michele Bee PA-C - Last Filed: 05/03/25 08:06> 05/03/25 <Paul Bray MD - Last Filed: 05/03/25 08:26> Progress Note: A&P Assessment and plan (1) History of colostomy reversal: Status: Acute <Michele Bee PA-C - Last Filed: 05/03/25 08:06> Assessment and Plan: 75 year old male POD 6 s/p colostomy reversal. Patient doing well today. Pain controlled, tolerating diet. He is increasing his ambulation. no new bowel movements, still passing flatus. Denies nausea, vomiting. On exam the abdomen is soft, tender primarily located at the previous stoma site. There is some scant oozing from the inferior aspect of the midline incision, dark blood. I redressed this with gauze, tape. Can continue this as needed. possible DC this afternoon if passing BM continue with dressing changes as needed for further incisional bleeding diet as tolerated ambulation as tolerated. <Michele Bee PA-C - Last Filed: 05/03/25 08:06> 75 year old male POD 6 s/p colostomy reversal. Patient doing well today. Pain controlled, tolerating diet. He is increasing his ambulation. no new bowel movements, still passing flatus. Denies nausea, vomiting. On exam the abdomen is soft, tender primarily located at the previous stoma site. There is some scant oozing from the inferior aspect of the midline incision, dark blood. I redressed this with gauze, tape. Can continue this as needed. possible DC this afternoon if passing BM continue with dressing changes as needed for further incisional bleeding diet as tolerated ambulation as tolerated. Patient seen and examined and agree with the above assessment and plan. Await return of bowel function. <Paul Bray MD - Last Filed: 05/03/25 08:26> Time Spent With Patient Time: Total time managing care of this patient today ____ minutes. <Michele Bee PA-C - Last Filed: 05/03/25 08:06> Quality Stroke Does the patient have a stroke diagnosis?: No <Michele Bee PA-C - Last Filed: 05/03/25 08:06> VTE Prior VTE?: No <Michele Bee PA-C - Last Filed: 05/03/25 08:06> VTE Risk Level:: Surgical - moderate <Michele Bee PA-C - Last Filed: 05/03/25 08:06> VTE Device Contraindication: N/A - Device Ordered <Michele Bee PA-C - Last Filed: 05/03/25 08:06> VTE Drug Contraindication: N/A - Med Ordered <Michele Bee PA-C - Last Filed: 05/03/25 08:06>
[2025-05-03 12:00] VITALS: BP 136/74; PULSE 65; RESP 18; TEMP 36.7; O2SAT 98
[2025-05-03 13:39] LABS: Hematocrit 24.9 % (42.0-52.0); Hemoglobin 8.4 g/dl (14.0-18.0); Imm Gran Abs Auto 0.08 X10*3/uL (0.00-0.03); Imm Gran Pct Auto 1.5 % (0.0-0.4); Lymphocytes Absolute Auto 4.4 X10*3/uL (1.2-4.9); MANUAL DIFF FLAG SCAN; Mean Corpuscular HGB Conc 33.7 g/dl (31.0-36.0); Mean Corpuscular Hemoglobin 33.3 pg (27.0-33.0); Mean Corpuscular Volume 98.8 fL (80.0-98.0); NRBC Abs Auto 0.020 X10*3/uL (0.0-0.012); NRBC Pct Auto 0.4 /100WBC (0.0-0.2); Red Blood Count 2.52 X10*6/uL (4.60-5.80); SCAN SMEAR FLAG 1; White Blood Count 5.3 X10*3/uL (4.8-10.8)
[2025-05-03 13:46] LABS: Platelet Count 77 X10*3/uL (160-400)
[2025-05-03 15:45] VITALS: BP 127/67; PULSE 68; RESP 18; O2SAT 96
[2025-05-03 19:29] VITALS: BP 119/67; PULSE 72; RESP 18; TEMP 37.1; O2SAT 96
[2025-05-03] MEDS: oxyCODONE HCl Immed Release 5 MG TABLET PO (21:28)
[2025-05-03 23:35] VITALS: BP 102/61; PULSE 64; RESP 18; TEMP 36.8; O2SAT 95
[2025-05-04 03:27] VITALS: BP 107/63; PULSE 67; RESP 18; TEMP 37.2; O2SAT 97
[2025-05-04 06:11] LABS: Hematocrit 22.7 % (42.0-52.0); Hemoglobin 8.0 g/dl (14.0-18.0); Imm Gran Abs Auto 0.09 X10*3/uL (0.00-0.03); Imm Gran Pct Auto 1.7 % (0.0-0.4); Lymphocytes Absolute Auto 4.0 X10*3/uL (1.2-4.9); MANUAL DIFF FLAG SCAN; Mean Corpuscular HGB Conc 35.2 g/dl (31.0-36.0); Mean Corpuscular Hemoglobin 34.5 pg (27.0-33.0); Mean Corpuscular Volume 97.8 fL (80.0-98.0); NRBC Abs Auto 0.000 X10*3/uL (0.0-0.012); NRBC Pct Auto 0.0 /100WBC (0.0-0.2); Red Blood Count 2.32 X10*6/uL (4.60-5.80); SCAN SMEAR FLAG 1; White Blood Count 5.2 X10*3/uL (4.8-10.8)
[2025-05-04 06:14] LABS: Platelet Count 76 X10*3/uL (160-400)
[2025-05-04 07:16] VITALS: BP 117/64; PULSE 66; RESP 18; TEMP 36.5; O2SAT 95
[2025-05-04] MEDS: oxyCODONE HCl Immed Release 5 MG TABLET PO ×2 (07:20→21:07)
[2025-05-04] MEDS: Ferrous Sulfate 324 MG TABLET.DR PO (07:20)
--- NOTE | 2025-05-04 07:33 | P.PNGS_ITS ---
Subjective Subjective Date of Service: 05/04/25 <Michele Bee PA-C - Last Filed: 05/04/25 07:40> 05/04/25 <Paul Bray MD - Last Filed: 05/04/25 14:38> Interval history: feeling better today, pain is minimal. Endorses some nausea during the day yesterday, this has improved. Currently denying nausea or vomiting. Feels a little bloated. He did pass 2 small bowel movements that were liquid with dark blood. denies pain with bowel movement. continues to tolerate diet. Plans to ambulate more today, yesterday was limited due to nausea. <Michele Bee PA-C - Last Filed: 05/04/25 07:40> Physical Exam 2 Vital Signs: Vital Signs: Last Vital Signs Temp 97.7 F 05/04/25 07:16 Pulse 66 05/04/25 07:16 Resp 18 05/04/25 07:16 BP 117/64 05/04/25 07:16 Pulse Ox 95 05/04/25 07:16 O2 Del Method Room Air 05/04/25 07:16 BMI result Body Mass Index 23.3 <Michele Bee PA-C - Last Filed: 05/04/25 07:40> Const: General: comfortable and no acute distress <CYDNEY Elliott Last Filed: 05/04/25 07:40> Orientation/consciousness: patient oriented x3 <Michele Bee PA-C - Last Filed: 05/04/25 07:40> GI: Other: incision sites clean dry, very minimal oozing on dressing. <Michele Bee PA-C - Last Filed: 05/04/25 07:40> Inspection: Yes distended (very mild) <CYDNEY Elliott Last Filed: 05/04/25 07:40> Palpation (GI): Soft to palpation, nontender and no guarding <CYDNEY Elliott Last Filed: 05/04/25 07:40> Neuro: General: patient oriented x3 <CYDNEY Elliott Last Filed: 05/04/25 07:40> Objective Data Active Medications Amlodipine Besylate (Amlodipine Besylate 10 Mg Tablet) 10 mg PO DAILY [facility]; Protocol Last Admin: 05/04/25 07:20 Dose: 10 mg Documented By: TANG Atorvastatin Calcium (Atorvastatin Calcium 40 Mg Tablet) 40 mg PO BEDTIME [facility] Last Admin: 05/03/25 19:57 Dose: 40 mg Documented By: DIETER Calcium Carbonate (Calcium Carbonate 750 Mg Tab.Chew) 750 mg PO Q4H PRN PRN Reason: Heartburn Last Admin: 04/30/25 10:39 Dose: 750 mg Documented By: CECILIA Carvedilol (Carvedilol 3.125 Mg Tablet) 6.25 mg PO BID [facility]; Protocol Last Admin: 05/04/25 07:20 Dose: 6.25 mg Documented By: TANG Ferrous Sulfate (Ferrous Sulfate 324 Mg Tablet.Dr) 324 mg PO DAILY [facility] Last Admin: 05/04/25 07:20 Dose: 324 mg Documented By: TANG Hydromorphone HCl (Hydromorphone Hcl 0.5 Mg/0.5 Ml Syringe) 0.5 mg IVPUSH Q3H PRN; Protocol PRN Reason: Pain, Severe (Pain Scale 7-10) Losartan Potassium (Losartan Potassium 50 Mg Tablet) 100 mg PO DAILY [facility]; Protocol Last Admin: 05/04/25 07:20 Dose: 100 mg Documented By: TANG Methocarbamol (Methocarbamol 750 Mg Tablet) 750 mg PO Q8H PRN PRN Reason: Muscle Spasm Ondansetron HCl (Ondansetron Hcl 4 Mg/2 Ml Vial) 4 mg IVPUSH QID PRN PRN Reason: Nausea Last Admin: 05/03/25 14:13 Dose: 4 mg Documented By: MAYELA Oxycodone HCl (Oxycodone Hcl Immed Release 5 Mg Tablet) 5 mg PO Q4H PRN PRN Reason: Pain, Moderate(Pain Scale 4-6) Last Admin: 05/04/25 07:20 Dose: 5 mg Documented By: TANG <Michele Bee PA-C - Last Filed: 05/04/25 07:40> Labs CBC & Chem 7: 05/04/25 05:55 04/28/25 05:40 <Michele Bee PA-C - Last Filed: 05/04/25 07:40> Labs: Laboratory Results - last 24 hr 05/03/25 05/04/25 13:27 05:55 MCV 98.8 H 97.8 MCH 33.3 H 34.5 H MCHC 33.7 35.2 RDW 16.8 H 16.7 H Plt Count 77 L 76 L MPV 8.5 L 8.7 L Immature Gran % (Auto) 1.5 H 1.7 H Neut % (Auto) 9.6 L 10.2 L Lymph % (Auto) 84.1 H 76.4 H [place] % (Auto) 4.2 10.5 Eos % (Auto) 0.4 1.0 Baso % (Auto) 0.2 0.2 Lymph # (Auto) 4.4 4.0 [place] # (Auto) 0.2 0.6 Eos # (Auto) 0.0 0.1 Baso # (Auto) 0.0 0.0 Abs Immat Gran (auto) 0.08 H 0.09 H Absolute Neuts (auto) 0.5 L 0.5 L Absolute Nucleated RBC 0.020 H 0.000 Nucleated RBC % (auto) 0.4 H 0.0 Smear Tech's Comments VERIFIED VERIFIED <Michele Bee PA-C - Last Filed: 05/04/25 07:40> Procedures Date of Service Date of Service: 05/04/25 <Michele Bee PA-C - Last Filed: 05/04/25 07:40> 05/04/25 <Paul Bray MD - Last Filed: 05/04/25 14:38> Progress Note: A&P Assessment and plan (1) History of colostomy reversal: Status: Acute <Michele Bee PA-C - Last Filed: 05/04/25 07:40> Assessment and Plan: 75 year old male POD 7 s/p colostomy reversal. Patient doing better today. Pain is minimal at rest, tolerating diet. He plans to increase his ambulation.Passed two small bowel movements yesterday that had dark blood in them. We will order CT of the abdomen to search for an etiology of the bloody stools. H/h stable around 04/29 for the past few days. Denies nausea, vomiting. On exam the abdomen is soft, tender primarily located at the previous stoma site. there is very mild distention. There is some scant oozing from the inferior aspect of the midline incision, dark blood. Can continue dressing changes this as needed. CT abdomen pending continue with dressing changes as needed for further incisional bleeding diet as tolerated ambulation as tolerated. <Michele Bee PA-C - Last Filed: 05/04/25 07:40> 75 year old male POD 7 s/p colostomy reversal. Patient doing better today. Pain is minimal at rest, tolerating diet. He plans to increase his ambulation.Passed two small bowel movements yesterday that had dark blood in them. We will order CT of the abdomen to search for an etiology of the bloody stools. H/h stable around 8 for the past few days. Denies nausea, vomiting. On exam the abdomen is soft, tender primarily located at the previous stoma site. there is very mild distention. There is some scant oozing from the inferior aspect of the midline incision, dark blood. Can continue dressing changes this as needed. CT abdomen pending continue with dressing changes as needed for further incisional bleeding diet as tolerated ambulation as tolerated. Agree with the above assessment and plan CT abdomen and pelvis reviewed. Abundant stool in the right colon, patent colonic anastomosis. Expected postoperative changes. Patient informed of the results. Plan MiraLax today. <Paul Bray MD - Last Filed: 05/04/25 14:38> Time Spent With Patient Time: Total time managing care of this patient today ____ minutes. <Michele Bee PA-C - Last Filed: 05/04/25 07:40> Quality Stroke Does the patient have a stroke diagnosis?: No <Michele Bee PA-C - Last Filed: 05/04/25 07:40> VTE Prior VTE?: No <Michele Bee PA-C - Last Filed: 05/04/25 07:40> VTE Risk Level:: Surgical - moderate <Michele Bee PA-C - Last Filed: 05/04/25 07:40> VTE Device Contraindication: N/A - Device Ordered <Michele Bee PA-C - Last Filed: 05/04/25 07:40> VTE Drug Contraindication: N/A - Med Ordered <Michele Bee PA-C - Last Filed: 05/04/25 07:40>
[2025-05-04] MEDS: iohexoL 350 MG/ML 100 ML INFUS..BTL IV (11:49)
[2025-05-04] MEDS: Barium Sulfate Oral (Vanilla) 450 ML ORAL.SUSP 900 ML PO (11:50)
[2025-05-04 12:00] VITALS: BP 128/56; PULSE 51; RESP 16; TEMP 36.6; O2SAT 97
--- NOTE | 2025-05-04 13:00 | MHC.CM.PN ---
Patient not medically cleared for dc. Per RN, dressing is DSD and patient/ are able to manage. CM will continue to follow.
[2025-05-04 15:44] VITALS: BP 127/66; PULSE 71; RESP 18; TEMP 36.8; O2SAT 98
[2025-05-04 20:00] VITALS: BP 114/62; PULSE 69; RESP 18; TEMP 36.6; O2SAT 95
[2025-05-04 23:32] VITALS: BP 104/60; PULSE 64; RESP 16; TEMP 36.1; O2SAT 94
[2025-05-05 03:45] VITALS: BP 108/63; PULSE 65; RESP 16; TEMP 36.3; O2SAT 96
[2025-05-05 08:00] VITALS: BP 117/67; PULSE 67; RESP 16; TEMP 36.2; O2SAT 97
--- NOTE | 2025-05-05 08:15 | P.PNGS_ITS ---
Subjective Subjective Date of Service: 05/05/25 <Michele Bee PA-C - Last Filed: 05/05/25 08:26> 05/05/25 <Paul Bray MD - Last Filed: 05/05/25 08:32> Interval history: Overall doing well, feels improved. He did have another small bloody bowel movememt yesterday, states he thinks that there was some fecal material there. Denies nausea or vomiting, pain is still minimal, endorses some soreness at the end of the day after he has been ambulating. Continues to do well with diet < Michele Bee PA-C - Last Filed: 05/05/25 08:26> Physical Exam 2 Vital Signs: Vital Signs: Last Vital Signs Temp 97.2 F 05/05/25 08:00 Pulse 67 05/05/25 08:00 Resp 16 05/05/25 08:00 BP 117/67 05/05/25 08:00 Pulse Ox 97 05/05/25 08:00 O2 Del Method Room Air 05/05/25 08:00 BMI result Body Mass Index 23.3 <Michele Bee PA-C - Last Filed: 05/05/25 08:26> Const: General: comfortable and no acute distress <CYDNEY Elliott Last Filed: 05/05/25 08:26> Orientation/consciousness: patient oriented x3 <Michele Bee PA-C - Last Filed: 05/05/25 08:26> GI: Other: incision sites clean dry, some dried blood on incision, nothing on dressing. <Michele Bee PA-C - Last Filed: 05/05/25 08:26> Inspection: Yes distended (very mild) <Michele Bee PA-C - Last Filed: 05/05/25 08:26> Palpation (GI): Soft to palpation, nontender and no guarding <CYDNEY Elliott Last Filed: 05/05/25 08:26> Neuro: General: patient oriented x3 <CYDNEY Elliott Last Filed: 05/05/25 08:26> Objective Data Active Medications Amlodipine Besylate (Amlodipine Besylate 10 Mg Tablet) 10 mg PO DAILY [facility]; Protocol Last Admin: 05/04/25 07:20 Dose: 10 mg Documented By: TANG Atorvastatin Calcium (Atorvastatin Calcium 40 Mg Tablet) 40 mg PO BEDTIME [facility] Last Admin: 05/04/25 21:08 Dose: 40 mg Documented By: SRI Calcium Carbonate (Calcium Carbonate 750 Mg Tab.Chew) 750 mg PO Q4H PRN PRN Reason: Heartburn Last Admin: 04/30/25 10:39 Dose: 750 mg Documented By: CECILIA Carvedilol (Carvedilol 3.125 Mg Tablet) 6.25 mg PO BID [facility]; Protocol Last Admin: 05/04/25 21:08 Dose: 6.25 mg Documented By: SRI Ferrous Sulfate (Ferrous Sulfate 324 Mg Tablet.Dr) 324 mg PO DAILY [facility] Last Admin: 05/04/25 07:20 Dose: 324 mg Documented By: TANG Hydromorphone HCl (Hydromorphone Hcl 0.5 Mg/0.5 Ml Syringe) 0.5 mg IVPUSH Q3H PRN; Protocol PRN Reason: Pain, Severe (Pain Scale 7-10) Losartan Potassium (Losartan Potassium 50 Mg Tablet) 100 mg PO DAILY [facility]; Protocol Last Admin: 05/04/25 07:20 Dose: 100 mg Documented By: TANG Methocarbamol (Methocarbamol 750 Mg Tablet) 750 mg PO Q8H PRN PRN Reason: Muscle Spasm Ondansetron HCl (Ondansetron Hcl 4 Mg/2 Ml Vial) 4 mg IVPUSH QID PRN PRN Reason: Nausea Last Admin: 05/03/25 14:13 Dose: 4 mg Documented By: MAYELA Oxycodone HCl (Oxycodone Hcl Immed Release 5 Mg Tablet) 5 mg PO Q4H PRN PRN Reason: Pain, Moderate(Pain Scale 4-6) Last Admin: 05/04/25 21:07 Dose: 5 mg Documented By: SRI Polyethylene Glycol (Polyethylene Glycol 3350 17 Gm Powd.Pack) 17 gm PO DAILY PRN PRN Reason: Constipation Last Admin: 05/04/25 15:50 Dose: 17 gm Documented By: TYSON <Michele Bee PA-C - Last Filed: 05/05/25 08:26> Labs CBC & Chem 7: 05/04/25 05:55 04/28/25 05:40 <Michele Bee PA-C - Last Filed: 05/05/25 08:26> Procedures Date of Service Date of Service: 05/05/25 <Michele Bee PA-C - Last Filed: 05/05/25 08:26> 05/05/25 <Paul Bray MD - Last Filed: 05/05/25 08:32> Progress Note: A&P Assessment and plan (1) History of colostomy reversal: Status: Acute <Michele Bee PA-C - Last Filed: 05/05/25 08:26> Assessment and Plan: 75 year old male POD 8 s/p colostomy reversal. Patient feels well, a bit frustrated that he has not passed a bowel movement yet. Pain is minimal at rest, tolerating diet. He plans to increase his ambulation.Passed another small bowel movement yesterday that had dark blood, patient thought that there was fecal material, I spoke with the nurse who describes it as bloody with some thick aspects that appear like a clot. It is possible that this is associated to a hematoma the anastomosis site that was visible on CT scan. We will recheck CBC to be on the safe side. Denies nausea, vomiting. On exam the abdomen is soft, minimally tender primarily located at the previous stoma site. Incision sites are clean and dry no more oozing some old crusted blood on the incision site but nothing on the previous dressing for this was left to open air. diet as tolerated ambulation as tolerated. will recheck CBC continue mirlax as needed, will add colace b.i.d. as needed. <Michele Bee PA-C - Last Filed: 05/05/25 08:26> 75 year old male POD 8 s/p colostomy reversal. Patient feels well, a bit frustrated that he has not passed a bowel movement yet. Pain is minimal at rest, tolerating diet. He plans to increase his ambulation.Passed another small bowel movement yesterday that had dark blood, patient thought that there was fecal material, I spoke with the nurse who describes it as bloody with some thick aspects that appear like a clot. It is possible that this is associated to a hematoma the anastomosis site that was visible on CT scan. We will recheck CBC to be on the safe side. Denies nausea, vomiting. On exam the abdomen is soft, minimally tender primarily located at the previous stoma site. Incision sites are clean and dry no more oozing some old crusted blood on the incision site but nothing on the previous dressing for this was left to open air. diet as tolerated ambulation as tolerated. will recheck CBC continue mirlax as needed, will add colace b.i.d. as needed. Agree with the above assessment and plan. Patient did have another bloody bowel movement last evening. Overall he feels well with a better appetite and no nausea. We will continue with the MiraLax today as well as prune juice to help loosen the increased stool volume in the right colon. <Paul Bray MD - Last Filed: 05/05/25 08:32> Time Spent With Patient Time: Total time managing care of this patient today ____ minutes. <Michele Bee PA-C - Last Filed: 05/05/25 08:26> Quality Stroke Does the patient have a stroke diagnosis?: No <Michele Bee PA-C - Last Filed: 05/05/25 08:26> VTE Prior VTE?: No <Michele Bee PA-C - Last Filed: 05/05/25 08:26> VTE Risk Level:: Surgical - moderate <Michele Bee PA-C - Last Filed: 05/05/25 08:26> VTE Device Contraindication: N/A - Device Ordered <Michele Bee PA-C - Last Filed: 05/05/25 08:26> VTE Drug Contraindication: N/A - Med Ordered <Michele Bee PA-C - Last Filed: 05/05/25 08:26>
[2025-05-05] MEDS: Ferrous Sulfate 324 MG TABLET.DR PO (08:27)
[2025-05-05 09:40] LABS: Hematocrit 26.4 % (42.0-52.0); Hemoglobin 9.1 g/dl (14.0-18.0); Mean Corpuscular HGB Conc 34.5 g/dl (31.0-36.0); Mean Corpuscular Hemoglobin 33.7 pg (27.0-33.0); Mean Corpuscular Volume 97.8 fL (80.0-98.0); NRBC Abs Auto 0.000 X10*3/uL (0.0-0.012); NRBC Pct Auto 0.0 /100WBC (0.0-0.2); Platelet Count 97 X10*3/uL (160-400); Red Blood Count 2.70 X10*6/uL (4.60-5.80); White Blood Count 7.5 X10*3/uL (4.8-10.8)
[2025-05-05 11:21] VITALS: BP 105/64; PULSE 69; RESP 18; TEMP 36.4; O2SAT 98
--- NOTE | 2025-05-05 12:04 | MHC.CM.PN ---
Patient medically cleared for dc home self care. CM met with patient to discuss- he is comfortable changing his dressing and will be sent home w/ supplies. will transport. RN aware.
--- NOTE | 2025-05-05 13:13 | P.DS_ITS ---
DS: Providers Provider Date of Service: 05/05/25 Date of admission: 04/27/25 06:00 Date of discharge: 05/05/25 Primary care physician: Aminata Moreno MD Admitting clinician: Paul Bray Attending physician on admission: Paul Bray Consults: 04/27/25 13:08 Consult to Hospitalist Routine Comment: Consulting Provider: [facility] Hospitalists Reason For Exam: CAD, HTN med management s/p colostomy closure Attending physician on discharge: Paul Bray DS: Diagnosis Discharge Diagnosis (1) History of colostomy reversal: Status: Acute DS: Summary Hospital Course Hospital Course: Admission HPI: 74-year-old male patient returning following a hospitalization for 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 Banerjee on 01/09/2025. He tolerated the procedure well and was subsequently discharged home on 01/15/2025. Since his discharge he feels much improved and is doing well with the colostomy care. His appetite has improved although he did lose weight following the surgery. He reports a prior colonoscopy approximately 3 years ago at an outside institution and was told that this was normal. He denies any bleeding or discharge from the incision. He returns today for wound check and discussion regarding closure of colostomy. Patient continues to do well following a sigmoid colectomy with end-colostomy for sigmoid volvulus. His wounds are clean and intact. Ashley removed today. We discussed closure of colostomy which typically is delayed for approximately 3 months following the surgery. He continues to do well with no ongoing abdominal symptoms. He reports gaining some weight since his last visit. 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 He would like to have the closure of colostomy prior to undergoing radiation therapy. I reviewed the procedure, risks, and alternatives in detail regarding the closure of colostomy and he consents to the surgery. This will be scheduled after 04/11/2025 as a short-stay admit. I reviewed the bowel prep which he would take the day prior to surgery and review of the eras protocol as well. He knows that he can have a clear protein drink up to 3 hours prior to surgery. Hospital course: On 04/27 patient had closure of colostomy with EEA status post Amarjit procedure. He tolerated procedure and was admitted to the med surge floor for further management. Alegria was left in after procedure. On postop day 1, patient doing well pain well controlled comfortable at rest. Able to ambulate, Alegria removed. He is tolerating clear diet no return of bowel function. Under the night. Patient found to have critically low H&H, received 1 unit of blood. Postop day 2 overall still feeling better. Passing gas per rectum no bowel movement at this time midline incision saturating dressings, requiring twice daily dressing changes, output serosanguineous. H and H again decreased coags rechecked, 2nd transfusion was given that afternoon. Later that night patient passed a bowel movement with dark blood in it. Postop day 3, patient doing okay. H and H improving. Having less abdominal pain no further bloody bowel movements. Some small amount of bloody discharge from liver incision continue with daily dressing changes diet advanced to regular diet. POD 4. Patient increasing ambulation passing gas had a 2nd bowel movement that was more formed less blood, more fecal matter. Tolerating diet although not a fan of the meals. POD 5, has not had another bowel movement yet, some mild oozing from incision. H&H stable at this time. POD 6. Overall doing well, still waiting bowel function. He did pass to smaller dark bloody bowel movements again. POD 7, patient feeling a little more bloated. No nausea or vomiting, still some oozing from the midline incision, a repeat CT ordered, has lot of stool in the right colon anastomosis is patent no other acute findings. We added MiraLax to help facilitate bowel movement. POD 8, overall doing well, still frustrated that there has been no bowel movement yet. Incision no longer oozing. Later that day he passed a larger bowel movement, nonbloody feculent. [place] ready to be discharged. At the time of discharge the patient was in stable condition. His abdomen exam was soft and benign Status at Discharge Functional status at discharge: independent ambulation Overall status at discharge: patient is progressing back to baseline Time Attestation Discharge Coordination Time (in mins): 30 Quality: Safe Use of Opioids Does Pt have an Active Cancer Diagnosis on the Problem List?: No Quality: Stroke Does the patient have a stroke diagnosis?: No Physical Exam Vital Signs: Vital Signs: Last Vital Signs Temp 97.5 F 05/05/25 11:21 Pulse 69 05/05/25 11:21 Resp 18 05/05/25 11:21 BP 105/64 05/05/25 11:21 Pulse Ox 98 05/05/25 11:21 O2 Del Method Room Air 05/05/25 11:21 BMI result Body Mass Index 23.3 Const: General: comfortable and no acute distress Orientation/consciousness: patient oriented x3 GI: Other: incision sites clean dry, some dried blood on incision, nothing on dressing. Inspection: Yes distended (very mild) Palpation (GI): Soft to palpation, nontender and no guarding Neuro: General: patient oriented x3 DS: Data Data Completed and Pending Completed studies during hospitalization [Text1]: Pending at discharge 04/27/25 09:19 Surgical [PTH] Routine Procedures Bypass Sigmoid Colon to Cutaneous, Open Approach (01/09/25) Drainage of Sigmoid Colon with Drainage Device, Via Natural or Artificial Opening Endoscopic (12/20/24) Resection of Left Large Intestine, Open Approach (01/09/25) Labs on day of discharge: Laboratory Results - last 24 hr 05/05/25 09:11 WBC 7.5 RBC 2.70 L Hgb 9.1 L Hct 26.4 L MCV 97.8 MCH 33.7 H MCHC 34.5 RDW 16.4 H Plt Count 97 L D MPV 8.6 L Absolute Nucleated RBC 0.000 Nucleated RBC % (auto) 0.0 Discharge Plan Discharge Anticipated Discharge Date/Time: 05/05/25 12:38 Patient Disposition: Home, Self-Care Discharge Diagnosis: S/p closure of colostomy Referrals: Paul Bray MD [Physician, General Surgery] - 1 Week Aminata Moreno MD [Primary Care Provider, Family Practice] - 1 Week Discharge Medications: New oxycodone 5 mg tablet 5 mg PO Q6H PRN (Reason: pain (scale score 7-10)) Qty: 15 0RF Rx Instructions: Partial Fill upon patient request. Continued multivitamin Tablet 1 tab PO DAILY sennosides [senna] 8.6 mg Tablet 8.6 mg PO DAILY PRN (Reason: Constipation) acetaminophen [Tylenol] 325 mg Tablet 650 mg PO Q6H PRN (Reason: Pain) cetirizine 10 mg Tablet 10 mg PO BEDTIME PRN (Reason: Allergy Symptoms) cyanocobalamin (vitamin B-12) 1,000 mcg Tablet 1,000 mcg PO QAM fexofenadine 180 mg Tablet 180 mg PO DAILY PRN (Reason: Allergy Symptoms) ferrous sulfate [iron] 325 mg (65 mg iron) Tablet 325 mg PO QAM bisacodyl [Dulcolax (bisacodyl)] 5 mg Tablet,Delayed Release (Dr/Ec) 5 mg PO BEDTIME PRN (Reason: Constipation) docusate sodium [Colace] 100 mg capsule 100 mg PO BID Qty: 60 2RF atorvastatin 40 mg tablet 40 mg PO BEDTIME carvedilol 6.25 mg tablet 6.25 mg PO BID cefadroxil 500 mg capsule 500 mg PO BID methocarbamol 750 mg tablet 750 mg PO Q8H PRN (Reason: muscle spasm) amlodipine 10 mg tablet 10 mg PO QAM losartan 100 mg tablet 100 mg PO QAM Discontinued oxycodone 5 mg tablet 5 mg PO Q6H PRN (Reason: pain (scale score 7-10)) Qty: 15 0RF Rx Instructions: Partial Fill upon patient request. Discharge Orders: Discharge Order (Routine); Ordered 05/05/25 Ordered By: Paul Bray Diet: Advance to usual diet Activity on Discharge: No heavy lifting Stand Alone Forms: Patient Portal Discharge page Print Language: Latvian Activity Restrictions/Additional Instructions: No lifting greater than 10 lb for one-month No driving for 1 week MiraLax and/or Colace as needed for constipation If your incision site is sore, you may apply ice to the area for short periods of time (no more than 20 minutes at a time, followed by 20 minutes off). You were prescribed oxycodone to assist with pain management as needed. You can additionally use OTC ibuprofen or acetaminophen as needed for pain. You can remove the dressings at home, they do not need to be redressed. Steri strips can remain in place and will likely fall on their own or in the shower. No heavy lifting >20 pounds No strenuous activity. Do not use creams, lotion, ointment on the incision sites You will follow up with Dr. Bray in the office in 1 week, you can call the office to schedule the appointment ) Please reach out to the office or be seen at the emergency department if you develop: -Fever >101.5 -Increasing pain or swelling of the area -Increased bleeding from the incision site or the incision begins to separate -If you are concerned for incision site infection such as redness, warmth, discharge. Some yellow/pink tinged discharge is normal -You develop nausea or vomiting Care Plan Goals: Returned to normal activity and diet Health Concerns: Sigmoid volvulus, s/p Amarjit procedure Plan of Treatment: Closure of colostomy Assessment: S/p closure of colostomy Discharge Date/Time: 05/05/25 13:55
== END 2025-05-05 13:55 | disposition home or self-care (01) | DRG 345 ==
LOC: HO.SSSA 06:13 → HO.S3 12:43
PROVIDERS: Admitting Provider Surgery; PCP Family Medicine; Visit Provider Surgery
PROC: 0DSM0ZZ Reposition Descending Colon, Open Approach (ICD-10-PCS; CPT 44620; principal; 2025-04-27 07:30)
DX: Z43.3 Encounter for attention to colostomy (principal); C91.10 Chronic lymphocytic leukemia of B-cell type not having achieved remission; I25.10 Atherosclerotic heart disease of native coronary artery without angina pectoris; I10 Essential (primary) hypertension; E78.5 Hyperlipidemia, unspecified; Z95.5 Presence of coronary angioplasty implant and graft; Z85.828 Personal history of other malignant neoplasm of skin; Z79.899 Other long term (current) drug therapy
CPT/HCPCS: 36415; 74177; 80048; 85007; 85025; 85027; 85610; 86850; 86900; 86901; 86923; 88304; 88307; J0131; J1100; J1171; J1650; J1885; J2003; J2250; J2405; J2704; J3010; P9016; Q9967

== ENCOUNTER → 2025-04-27 06:00 | Outpatient (BNV) | payer MEDICARE, SELFPAY | PROVIDERS: Admitting Provider Surgery; PCP Family Medicine; Visit Provider Surgery | DX: Z98.890 Other specified postprocedural states (principal) | CPT/HCPCS: 44626; 99024 ==

== ENCOUNTER → 2025-04-27 06:00 | Outpatient (BNV) | payer MEDICARE, SELFPAY | PROVIDERS: Admitting Provider Surgery; PCP Family Medicine; Visit Provider Internal Medicine | DX: I10 Essential (primary) hypertension (principal); I25.10 Atherosclerotic heart disease of native coronary artery without angina pectoris | CPT/HCPCS: 99222; 99499 ==

== ENCOUNTER 2025-05-10 14:38 | Outpatient (AMB) | payer MEDICARE, SELFPAY ==
--- NOTE | 2025-05-10 14:50 | A.OFFVIS_ITS ---
Vital Signs 05/10/25 14:57 Height 6 ft 2 in Weight 186 lb BMI 23.9 BP 108/55 L Blood Pressure Location Lt brachial Position Sitting Pulse 61 Intake Visit Reasons: S/P closure of colostomy Intake Note: Patient is seen in office for post op assessment post closure of colostomy. Pt c/o: denies any concerns at the time of visit, eating well and no cocenrs with bowels Micromatic Hone Operator Required: No Accompanied by: Self / Same As Patient Allergies No Known Allergies Allergy (Verified 05/10/25 14:56) Medication List - Last Reconciled 05/10/25 by Paul Bray MD acetaminophen (Tylenol) 650 mg PO Q6H PRN amlodipine 10 mg PO QAM atorvastatin 40 mg PO BEDTIME bisacodyl (Dulcolax (bisacodyl)) 5 mg PO BEDTIME PRN carvedilol 6.25 mg PO BID cefadroxil 500 mg PO BID cetirizine 10 mg PO BEDTIME PRN cyanocobalamin (vitamin B-12) 1,000 mcg PO QAM docusate sodium (Colace) 100 mg PO BID ferrous sulfate (iron) 325 mg PO QAM fexofenadine 180 mg PO DAILY PRN losartan 100 mg PO QAM methocarbamol 750 mg PO Q8H PRN multivitamin 1 tab PO DAILY oxycodone 5 mg PO Q6H PRN sennosides (senna) 8.6 mg PO DAILY PRN HPI Comments Details: 75-year-old male patient returning following closure of colostomy performed on 04/27/2025. Patient is now moving his bowels on a regular basis and feels much improved. He denies significant abdominal pain at this time. He is eating well without nausea or vomiting. He denies any problems with his abdominal incisions. [facility] Medical History (Updated 04/27/25 @ 18:34 by Meg Magallanes MD) Coronary artery disease HTN (hypertension) Chronic anemia Basal cell carcinoma Squamous cell carcinoma of face CLL (chronic lymphocytic leukemia) HLD (hyperlipidemia) Surgical History (Updated 04/28/25 @ 08:25 by Michele Bee PA-C) H/O colonoscopy Hx of cardiac catheterization Status post Mohs surgery for basal cell carcinoma Hx of colectomy (01/09/25) H/O neck surgery History of total right hip replacement History of total left hip replacement History of facial surgery Social History Household Members: Spouse Housing: Condominium Are you a primary healthcare insurance sales agent to a significant other at home: No Do you presently have visiting nurse or other home services: No Patient Tobacco Use Status: Never used Tobacco Substance Use Type: Marijuana Advance Directives Date on File: 12/24/24 service: No Physical Exam Const General: comfortable Nutritional Appearance: well nourished Orientation/consciousness: patient oriented x3 Limitations: ambulation with cane Resp Effort & Inspection: normal respiratory effort GI Other: Soft nondistended, abdominal incisions are clean and intact without redness or discharge. Steri-Strips remain intact as well. Neuro General: patient oriented x3 Extrem Other: No edema Assessment & Plan Assessment & Plan (1) History of colostomy reversal: Code(s): Z98.890 - Other specified postprocedural states Category: Surgical Plan 75-year-old male patient returning following closure of colostomy on 04/27/2025. His wounds are healing nicely and he is tolerating his diet well. He should continue to avoid lifting greater than 10 lb and return in approximately 1 month for wound examination. He is welcome to call sooner for any new concerns. Coding Level of Care Code Global (27590) Diagnoses History of colostomy reversal Z98.890
[2025-05-10 14:57] VITALS: BP 108/55; PULSE 61; BMI 23.9
--- OUTSIDE RECORDS SUMMARY | 2025-05-10 15:52 | XMS_ITS | Encounter Summary ---
Author Organization [facility] Address [address] [place] [address] Care Team Providers Care Fish Cutter Name Role Phone Suzanna Mcgill Primary Care Provider [phone] Encounter Details Date Type Department Care Team (Late st Contact Info) Description 09/25/2023 Industrial Technology Grouphart Message [facility] [address] [place] [id number] Mychart, Generic Provider [address] [place], [place] [id number] Occuplastics referral Social History Tobacco Use Types [...] on filedocumented in this encounter Care Teams Fish Cutter Relationship Specialty Start Date End Date Suzanna Mcigll [address] [place] [address] PCP - General 08/14/22 documented as of this encounter
--- OUTSIDE RECORDS SUMMARY | 2025-05-10 15:52 | XMS_ITS | Clinical Summary ---
Author Organization [facility] Address [address] [place] [address] Care Team Providers Care Skip Pit Worker Name Role Phone Nano Betsymaverick Primary Care Provider Allergies Active Allergy Reactions [...] tea prior to administrati on. Active mv-mn/C/glutamin /lysin/vnid471 (AIRBORNE, ASCORBATE SODIUM, ORAL) Take by mouth. [...] PET/CT TUMOR IMAGING SKULL BASE TO MID-THIGH 08/26/2022 Moderate calcified and sclerosis of the [...] veins 11/16/2015 Coronary artery disease invo lving three affiliated coronary artery of three affiliated heart without angina pectoris 09/13/2015 Overview (08/26/2022): Stenting x 2 in [address] Thapa in [place], [place] Stenting x 2 in [address] Thapa in [place], [place] Hyperlipidemia 09/13/2015 Primary hypertension 09/13/2015 Immunizations [...] 57 03/02/2023 6:28 AM EDT Temperature 36.7 C (98.1 F) 03/02/2023 6:28 AM EDT Respiratory Rate 18 03/02/2023 6:28 AM EDT [...] Zoster Vaccines (1 of 2) 02/10/2015 12/16/2014 Basic Metabolic Panel 07/18/2024 07/18/2023 , 07/17/2023, 03/01/2023, Additional history exists Alcohol/Substance Use Screening 09/08/2024 Depression Screening and Follow-Up 09/08/2024 Health Care Proxy Review 09/08/2024 Social Drivers of Health Ally ua Screening 09/08/2024 COVID-19 Vaccine (5 - 2024-2 6 season) 2025 08/06/2023, 08/06/2023, 06/27/2022, Additional history exists Influenza Vaccine (#1) 2025 3, 06/27/2022, 07/11/2021, Additional history exists DTaP,Tdap,and Td Vaccines (3 - Td or Tdap) 07/06/2029 07/06/2019, 11/28/2008, 01/04/1999 Hepatitis B Vaccines Completed 03/15/2014, 01/14/2014, 12/08/2013, Additional history exists Pneumococcal Vaccine: 50+ Years Completed 07/06/2019, 11/16/2015, 04/02/2011 RSV Vaccine (60+ years old a nd patients) Completed 09/10/2023 Medical Devices Implanted Type Area Television News Reporter Device Identifier Shelf Expiration Date Model / Serial / Lot Drill Bit Twist [employer] Standard Stainless Steel Sterile [id number] - [id number] Implanted:Qty: 1 on 09/03/2022 by Ashu Mason MD at [facility] [employer] [id number] / / Procedures * Due to [facility] law, this organization might not be sharing negative HIV tests. Procedure Name Priority Date/Time Associated Diagnosis Comments BASIC METABOLIC PANEL Routine 03/01/2023 3:38 AM EDT from Last 3 Months or Most Recently Relevant to Health Maintenance Results * Due to [place] law, this organization might not be sharing negative HIV tests. * (ABNORMAL) Basic Metabolic Panel (03/01/2023 3:38 AM EDT) NA 132(L) 135 - 145 mmol/L 03/01/2023 4:37 AM EDT [facility] [employer] [facility] K 4.5 3.5 - 5.3 mmol/L 03/01/2023 4:37 AM EDT [employer] [facility] Cl 99 97 - 110 mmol/L 03/01/2023 4:37 AM EDT [employer] [employer] [facility] CO2 26 24 - 32 mmol/L 03/01/2023 4:37 AM EDT [employer] [facility] [employer] [facility] BUN 9 7 - 23 mg/dL 03/01/2023 4:37 AM EDT [employer] [facility] [employer] [facility] Creatinine 0.60 0.60 - 1.30 mg/dL 03/01/2023 4:37 AM EDT [facility] [employer] [facility] Glucose 149(H) 70 - 99 mg/dL 03/01/2023 4:37 AM EDT [facility] [employer] [facility] Calcium 8.7 8.7 - 10.7 mg/dL 03/01/2023 4:37 AM EDT [facility] [employer] [facility] Anion Gap 7 5 - 15 03/01/2023 4:37 AM EDT [facility] [employer] [facility] eGFR >90 >=60 mL/min/1. 73m2 03/01/2023 4:37 AM EDT [facility] Comment:The estimated glomer ular [...] MD LAB BLOOD ORDERABLES Final R esult [facility] [address] [place] [id number], from Last 3 Months or Most Recently Relevant to Health Maintenance Insurance [facility] Advance Directives Documents on File Type Date Recorded Patient Compressor Mechanic Expl anation Health Care Proxy 08/26/2022 12:51 [...] 6:07 AM 09/03/2022 4:22 PM Care Teams Skip Pit Worker Relationship Specialty Start Date End Date Suzanna Mcgill [address] [place] [address] PCP - General 08/14/22
--- OUTSIDE RECORDS SUMMARY | 2025-05-10 15:52 | XMS_ITS | Encounter Summary ---
Author Organization [facility] Address [address] [facility] [address] [place] [address] Phone Care Team Providers Care Certified Neurodiagnostic Technologist Name Role Phone Aminata Moreno MD Primary Care Provider Encounter Details Date Type Department Care Team (Late st Contact Info) Description 03/31/2024 Procedure Pass [facility], Ct Scan - [address] [address] Social History Tobacco Use Types Packs/Day Years Used Date Smoking Tobacco: Never Assessed Education Answer Date Recorded Are you interested in more education? Not on siobhan e 01/04/2023 Are you concerned about learning? Not on file 01/04/2023 No 01/04/2023 No 01/04/2023 Digital Access Answer Date Recorded No 02/04/2023 No 02/04/2023 Reliable internet access at home? Not on file 02/04/2023 Device with a working camera? Not on file Sex and Gender Information Value Date Recorded Sex Assigned at Not on file Legal Sex Male 2:38 PM EST Gender Identity Not on file Sexual Orientation Not on file documented as of this encounter Plan of Treatment Not on file documented as of this encounter Visit Diagnoses Not on filedocumented in this encounter Care Teams Certified Neurodiagnostic Technologist Relationship Specialty Start Date End Date Aminata Moreno MD [address] [facility] [place] [address] [email or web address] PCP - General 04/08/24 documented as of this encounter Additional Source Comments The information contained in this document represents components of the legal health record. It is not the complete legal health record.[facility]
--- OUTSIDE RECORDS SUMMARY | 2025-05-10 15:52 | XMS_ITS | Encounter Summary ---
Author Organization [facility] Address [address] [place] [address] Care Team Providers Care Hr Business Partner Consultant Name Role Phone Indu Acosta MD Primary Care Provider Giovanna Thapa MD Unavailable Suzanna Mcgill DO Primary Care Provider [phone] Giovanna Thapa MD Unavailable Aminata Moreno MD Primary Care Provider Anayeli vailable Reason for Visit * Reason Comments Medication Refill Encounter Details Date Type Department Care Team (Late st Contact Info) Description 03/01/2022 Refill [facility] Laboratory [address] [phone] Olivia Zavaleta, PA [address] [place] [phone] Medication Refill Social History Tobacco Use Types [...] Care Team (Late st Contact Info) Description 10/13/2025 9:40 AM EST Office Visit [facility] [place] [address] [place] [phone] Giovanna Thapa MD [address] [place] [address] [address] [place] [address] documented as of this encounter Visit Diagnoses Diagnosis Hypertension, unspecified type documented in this encounter Care Teams Hr Business Partner Consultant Relationship Specialty Start Date End Date Indu Acosta MD [address] [place] [address] PCP - General 08/29/21 03/26/23 Suzanna Mcgill DO [address] [place] [address] PCP - General Family Medicine 03/27/23 04/06/25 Aminata Moreno MD PCP - General Family Medicine 04/07/25 Giovanna Thapa MD [address] [place] [id number] Primary Ingredient Scaler Cardiovascular Disease 08/29/21 Giovanna Thapa MD [address] [place] [address] Primary Ingredient Scaler Interventional Cardiology 02/23/25 documented as of this encounter
--- OUTSIDE RECORDS SUMMARY | 2025-05-10 15:52 | XMS_ITS | Clinical Summary ---
Author Organization [facility] Address [address] [place] [address] Care Team Providers Care Acid Conditioner Name Role Phone Ananda Whiting MD Primary [...] as needed. 0 Active Cobalamin Combinations (Vitamin A68-Dvcbr Acid) 500-400 MCG TABS Take by mouth [...] skin 2022 Coronary artery disease invo lving [place] coronary artery of [place] heart without angina pectoris 12/05/2017 Essential hypertension [...] 68 06/16/2024 2:18 PM EDT Temperature 36.6 C (97.9 F) 06/16/2024 2:18 PM EDT Respiratory Rate 17 06/16/2024 2:18 PM EDT [...] 2) 1969 Colon Cancer Screening (Colonoscopy) 1995 Fall Risk Assessment 2015 DTap / Tdap / Td (2 - Td or Tdap) 11/28/2018 11/28/2008 COVID-19 Vaccine (2 - Pfizer risk series) 08/27/2023 08/06/2023, 01/09/2022 RSV Adult > 60+ Yrs or (1 - 1-dose 75+ series) 2025 Influenza Vaccine (#1) 2025 , 08/06/2023, 08/06/2023, Additional history exists Hepatitis B Vaccines Completed 03/15/2014, 01/14/2014, 12/08/2013, Additional history exists Pneumococcal Vaccine Completed 07/06/2019, 11/16/2015, 04/02/2011 RSV Ped < 20 months Aged Out No longe r eligible based on patient's age to complete this topic Medical Devices Implanted Type Area Brewery Cellar Worker Device Identifier Shelf Expiration Date Model / Serial / Lot Cement Bone Surg Simplex Radiopq [facility] 2493-5-602-114 092 - [id number] Implanted:Qty: 1 on 06/08/2024 by Babak Carrasquillo MD at [facility] Right: Hip [employer] [id number] 05/08/2026 6191-1-010 / / [id number] Impl Set Bead 2.0mm Vit Brandt [facility] 6820-6-196-114 128 - [id number] Implanted:Qty: 1 on 06/08/2024 by Babak Carrasquillo MD at [facility] Right: Hip [employer] [id number] 01/19/2029 6704-0-520 / / [id number] Impl Set Bead 2.0mm Vit Brandt [facility] 5123-1-696-114 128 - [id number] Implanted:Qty: 1 on 06/08/2024 by Babak Carrasquillo MD at [facility] Right: Hip [employer] [id number] 01/19/2029 6704-0-520 / / [id number] Impl Set Bead 2.0mm Vit Brandt [employer] 0624-5-590-114 128 - [id number] Implanted:Qty: 1 on 06/08/2024 by Babak Carrasquillo MD at [facility] Right: Hip [employer] [id number] 01/09/2029 6704-0-520 / / [id number] Impl Set Bead 2.0mm Vit Brandt [employer] 4994-2-581-114 128 - [id number] Implanted:Qty: 1 on 06/08/2024 by Babak Carrasquillo MD at [facility] Right: Hip [employer] [id number] 01/09/2029 6704-0-520 / / [id number] Impl Set Bead 2.0mm Vit Brandt [employer] 5858-6-197-114 128 - [id number] Implanted:Qty: 1 on 06/08/2024 by Babak Carrasquillo MD at [facility] Right: Hip [employer] [id number] 10/06/2028 6704-0-520 / / [id number] Cable Slv Set D-M Bead 2.0mm Vit Rishi Theodorey-How 1472-1-350-114 159 - [id number] Implanted:Qty: 1 on 06/08/2024 by Babak Carrasquillo MD at [facility] Right: Hip [employer] [id number] 11/17/2028 6704-0-510 / / [id number] Cable Slv Set D-M Bead 2.0mm Vit Med Stry-Howm 3905-8-941-114 159 - [id number] Implanted:Qty: 1 on 06/08/2024 by Babak Carrasquillo MD at [facility] Right: Hip [employer] [id number] 11/17/2028 6704-0-510 / / [id number] Cable Slv Set D-M Bead 2.0mm Vit Med Stry-How 2920-2-464-114 159 - [id number] Implanted:Qty: 1 on 06/08/2024 by Babak Carrasquillo MD at [facility] Right: Hip [employer] [id number] 11/17/2028 6704-0-510 / / [id number] Cable Slv Set D-M Bead 2.0mm Vit Med Stry-How 6081-8-187-114 159 - [id number] Implanted:Qty: 1 on 06/08/2024 by Babak Carrasquillo MD at [facility] Right: Hip [employer] [id number] 11/17/2028 6704-0-510 / / [id number] Plate Quality Control Troch Lg 210mm Vitallium W [address] [facility] 1023-3-186-363 390 - [id number] Implanted:Qty: 1 on 06/08/2024 by Babak Carrasquillo MD at [facility] Right: Hip [employer] [id number] 02/19/2028 6704-3-093 / / [id number] Cement Bone Surg Simplex Radiopq [facility] 8175-9-877-114 092 - [id number] Implanted:Qty: 1 on 06/08/2024 by Babak Carrasquillo MD at [facility] Right: Hip [employer] [id number] 05/08/2026 6191-1-010 / / [id number] Explanted Type Area Brewery Cellar Worker Device Identifier Shelf Expiration Date Model / Serial / Lot Femoral Head Explanted:Qty: 1 on 06/08/2024 by Babak Carrasquillo MD at [facility] Right: Hip Femoral Stem Explanted:Qty: 1 on 06/08/[address] [facility] Right: Hip Acetabular Liner Explanted:Qty: 1 on 06/08/[address] [facility] Right: Hip Screw Explanted:Qty: 1 on 06/08/[address] [facility] Right: Hip Screw Explanted:Qty: 1 on 06/08/[address] [facility] Right: Hip Screw Explanted:Qty: 1 on 06/08/[address] [facility] Right: Hip Acetabular Shell Explanted:Qty: 1 on 06/08/2024 at [facility] Right: Hip Advance Directives For more information, please contact: [phone] Latest Code Status on File Code Status [...] way: discussion with patient . Care Teams Acid Conditioner Relationship Specialty Start Date End Date Ananda Whiting MD [address] [facility] [address] [place] [phone] PCP - General Geriatric Medicine 06/03/24
--- OUTSIDE RECORDS SUMMARY | 2025-05-10 15:52 | XMS_ITS ---
Author Organization 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 Past Plans ONCOLOGY TREATMENT Plan Name Start Date Discontinue Date Treatment Medications Discontinue Reason Plan Provider [facility] [place] CISPLATIN 100MG/M2 (FOR USE WITH [...] treatments are documented for this patient in [facility]. Treatments may have been administered in another system.
--- OUTSIDE RECORDS SUMMARY | 2025-05-10 15:52 | XMS_ITS ---
Author Organization [facility] Address [address] [place] [address] Care Team Providers Care Manager Of Production Name Role Phone Nano Harpreetvidhi Primary Care Provider [phone] Active Problems Problem Noted Date Diagnosed Date [...] veins 11/16/2015 Coronary artery disease invo lving [place] coronary artery of [place] heart without angina pectoris 09/13/2015 Overview (08/26/2022): Stenting x 2 in [address] Thapa in [place], [place] Stenting x 2 in [address]. Follow[address] Thapa in [place] Hyperlipidemia 09/13/2015 Primary hypertension 09/13/2015 Current Treatment and Therapy Plans No current plan information found. Past Treatment and Therapy Plans No past plan information found. Lifetime Dose Tracking * Chemical Lifetime Dose Automatic Entry Manual Entr y TotalDLP 859 mGy 859 mGy 0 mGy [id number] 7.5 mSv 7.5 mSv 0 mSv CTDIvol Max 32.2 mGy 32.2 mGy 0 mGy CTDIvol Min 32.2 mGy 32.2 mGy 0 mGy
--- OUTSIDE RECORDS SUMMARY | 2025-05-10 15:52 | XMS_ITS | Clinical Summary ---
Author Organization [facility] Address [address] [place] [address] Care Team Providers Care Pipe And Boiler Covers Supervisor Name Role Phone Giovanna Thapa MD Unavailable Giovanna Thapa MD Unavailable Aminata Moreno MD Primary Care Provider Anayeli vailable Allergies Active Allergy Reactions Criticality Noted Date [...] total) by mouth daily as needed for constipation . Active fexofenadine (LILIANA) 180 MG tablet Take 1 tablet (180 mg total) by mouth daily. Administer with water only; do not administer with fruit juices. Active naproxen sodium (ALEVE) 220 mg tablet Take 1 tablet (220 mg total) by mouth. Active Melatonin 1 MG Chew Tab Chew. Active Probiotic Product (Probiotic-10) Chew Tab Chew 4 tablets. Active losartan (COZAAR) 100 MG tabletIndications:Prim carlos manuel hypertension TAKE 1 TABLET BY MOUTH EVERY DAY 90 tablet 3 024 Active traMADol (ULTRAM) 50 MG tablet Take 1 tablet (50 mg total) by mouth 4 times daily (every 6 hours) as needed. Active senna-docusate (SENNA-S) 8.6-50 MG Take 1 tablet by mouth daily. Active Cobalamin Combinations (Vitamin G14-Favnf Acid) 500-400 MCG Tab Take by mouth daily. Active acetaminophen (TYLENOL) 500 MG tablet Take 1 tablet (500 mg total) by mouth 4 times daily (every 6 hours) as needed. Active atorvastatin (LIPITOR) 40 MG tabletIndications:Pure hypercholesterolemia TAKE 1 TABLET BY MOUTH EVERY DAY 90 tablet 3 Active cefadroxil (DURICEF) 500 mg capsule Take 1 capsule (500 mg total) by mouth 2 (two) times a day. Active carvedilol (COREG) 6.25 MG tabletIndications:Hype rtension, unspecified type TAKE 1 TABLET BY MOUTH TWICE A DAY WITH FOOD 180 tablet 3 Active carvedilol (COREG) 6.25 MG tabletIndications:Hype rtension, unspecified type TAKE 1 TABLET BY MOUTH TWICE A DAY WITH MEALS 180 tablet 3 024 05/10 Discontinued Active Problems Problem Noted Date Diagnosed Date [...] (03/27/2023): Neg work up Neg work up Essential hypertension 09/13/2015 Hyperlipidemia 09/13/2015 Primary hypertension 09/13/2015 Coronary artery disease invo lving [place] coronary artery of [place] heart without angina pectoris 09/13/2015 03/27/2023 Overview (03/27/2023): Stenting x 2 in 2004. Follows with Dr. Thapa in [place], [place] Stenting x 2 in [address]. Follows with Dr. Thapa in [place] Other hyperlipidemia 09/13/2015 03/27/2023 Resolved Problems Problem Noted Date Diagnosed Date Resolved Date Aneurysm 10/04/2022 04/07/2025 Coronary artery disease invo lving [place] coronary artery of [place] heart without angina pectoris 09/13/2015 04/07/2025 Overview (09/05/2021): Stenting x 2 in [address] Thapa in [place], [place] Encounters Date Type Department Care Team Description 05/09/2025 Refill [facility] [address] [phone] Giovanna Thapa MD Medication Refill 04/07/2025 9:20 AM EDT Office Visit [address] [phone] Giovanna Thapa MD Coronary artery disease involving [place] coronary artery of [place] heart without angina pectoris (Primary Dx); Primary hypertension ; Pure hypercholesterolemia 04/07/2025 Travel 02/19/[address] [phone] Olivia Zavaleta PA Medication Refill from Last 3 Months Immunizations Immunization Administration Dates Next Due Covid-19 mRNA Vaccine - Moderna 0.25 mL Booster 01/09/2022 Social History Tobacco Use Types Packs/Day Years Used Date Smoking Tobacco: Never Smokeless Tobacco: Never Tobacco Cessation:Counseling Given: Not Answered Alcohol Use Standard Drinks/Week Comments Yes 0 [...] Sign Reading Time Taken Comments Blood Pressure 124/70 04/07/2025 9:27 AM EDT Pulse 62 04/07/2025 9:27 AM EDT Temperature - - Respiratory Rate 18 10/04/2022 9:02 AM EST Oxygen Saturation 100% 04/07/2025 9:27 AM EDT Inhaled Oxygen Concentration - - Weight 84.5 kg (186 lb 3.2 oz) 04/07/2025 9:27 A M EDT Height 182.9 cm (6') 04/07/2025 9:27 AM EDT Body Mass Index 25.25 04/07/2025 9:27 AM EDT Plan of Treatment Upcoming Encounters Date Type Department Care Team (Late st Contact Info) Description 10/13/2025 9:40 AM EST Office Visit [facility] [place] [address] [place] [address] Giovanna Thapa MD [address] [facility] [address] [place] [address] Health Maintenance Due Date Last Done Comments Advance Care Planning 1950 Hepatitis C Virus Screening 1950 DTaP/Tdap/Td Vaccines (1 - Tdap) 1969 Pneumococcal Vaccines 50+ (1 of 2 - PCV) 1969 Zoster (Shingles) Vaccine (1 of 2) 1969 Colonoscopy 1995 COVID-19 Vaccine (3 - Mixed Product risk series) 09/03/2023 08/06/2023, 01/09/2022, 07/11/2021 Influenza Vaccine 04/08/2025 07/01/2024, , 08/06/2023, Additional history exists RSV Vaccine 60 years and older and Patients (1 - 1-dose 75+ series) 2025 Hepatitis B Vaccines Aged Out No long er eligible based on patient's age to complete this topic Procedures Procedure Name Priority Date/Time Associated Diagnosis Comments ECG 12-LEAD Routine 04/07/2025 9:24 AM EDT Coronary artery disease involving [place] coronary artery of [place] heart without angina pectoris Primary hypertension Pure hypercholesterolemia from Last 3 Months Results * ECG 12 lead (04/07/2025 9:24 AM EDT) Ventricular rate 62 BPM EKG [facility] Atrial rate 62 BPM EKG [facility] P-R interval 238 ms EKG [facility] QRS duration 106 ms EKG [facility] Q-T interval 456 ms EKG [facility] QTC calculation (Bazett) 462 ms EKG [facility] P axis 99 degrees EKG [facility] R axis -48 degrees EKG [facility] T axis 47 degrees EKG [facility] 04/07/2025 9:24 AM EDT Narrative EKG [facility] - 04/07/2025 9:31 AM EDT Sinus rhythm with 1st degree A-V block Left axis deviation Incomplete right bundle branch block Nonspecific ST and T wave abnormality Prolonged QT Abnormal ECG When compared with ECG of 26-Aug-2024 13:05, Incomplete right bundle branch block has replaced Right bundle branch block Confirmed by MD Thapa Jawad ([id number]) on 04/07/2025 9:31:48 AM Procedure Note Giovanna Thapa MD - 04/07/2025 Sinus rhythm with 1st degree A-V block Left axis deviation Incomplete right bundle branch block Nonspecific ST and T wave abnormality Prolonged QT Abnormal ECG When compared with ECG of 26-Aug-2024 13:05, Incomplete right bundle branch block has replaced Right bundle branchblock Confirmed by MD Thapa Jawad ([id number]) on 04/07/2025 9:31:48 AM Giovanna Thapa MD ECG ORDERABLES Final Result [facility] from Last 3 Months Insurance MEDICARE PART A & B Care Teams Pipe And Boiler Covers Supervisor Relationship Specialty Start Date End Date Aminata Moreno MD PCP - General Family Medicine 04/07/25 Giovanna Thapa MD [address] [place] [phone] Primary Aoc Director Intelligence Officer Cardiovascular Disease 08/29/21 Giovanna Thapa MD [address] [place] [phone] Primary Aoc Director Intelligence Officer Interventional Cardiology 02/23/25
--- OUTSIDE RECORDS SUMMARY | 2025-05-10 15:52 | XMS_ITS | Encounter Summary ---
Author Organization [facility] Address [address] [place] [address] Care Team Providers Care Coating Inspector Name Role Phone Suzanna Mcgill Primary Care Provider [phone] Encounter Details Date Type Department Care Team (Late st Contact Info) Description 08/26/2022 Lab Requisition [facility] [address] [place] [address] Ashu Mason MD [address] [place] [address] [phone] Social History Tobacco Use Types Packs/Day Years [...] of this encounter Procedures * Due to [place] [employer] law, this organization might not be sharing negative HIV tests. Procedure Name Priority Date/Time Associated Diagnosis Comments NON-GYNECOLOGIC CYTOLOGY 08/26/2022 8:00 AM EST documented in this encounter Results * Due to [place] [employer] law, this organization might not be sharing negative HIV tests. * (ABNORMAL) Non-Gynecologic Cytology (08/26/2022 8:00 AM EST) Final Diagnosis Specimen 1: Cheek, Right; Incoming consult, FNA Positive for malignant cells. Squamous cell carcinoma, keratinizing. See note. Note: The case was labelled as Right cheek, FNA, NOS , part 1 and part 2. Both part 1 and part 2 show squamous cell carcinoma. [facility] 08/27/2022 10:43 AM EST [employer] [employer] [facility] at 1043 EST Clinical History SCC Cheek [facility]UAL 08/27/2022 10:43 AM EST [employer] [employer] [facility] Gross Description Specimen 1: Received from [facility] are 6 glass slides labeled [id number] corresponding to a right cheek FNA obtained on 08/12/2022, according to the accompanying cytology report bearing the patient's name and date of . [facility] MANUAL 08/27/2022 10:43 AM EST [employer] [employer] [facility] Embedded Images [facility] 08/27/2022 10:43 AM EST [employer] Resulting Agency Case was signed out at [facility], Department of Pathology, [facility] [id number] [facility] MANUAL 08/27/2022 10:43 AM EST [employer] [employer] [facility] Abnormal Yes(A) (none) [facility] MANUAL 08/27/2022 10:43 AM EST [employer] [employer] [facility] Report Header Non-Gynecologic Cytology Report Case: [id number] Authorizing Provider: Ashu Mason MD Collected: 08/26/2022 0800 Ordering Location: [facility] Received: 08/26/2022 1546 [place] [facility] Pathologist: Rigoberto Brito MD Specimen: Cheek, Right, Incoming consult, FNA 08/27/2022 10:43 AM EST [employer] [employer] [facility] Structure of right cheek / Unknown 08/26/2022 8:00 AM EST 08/26/2022 3:46 PM EST us Ashu Mason MD LAB PATHOLOGY/CYTOLOGY ORDER FACUNDO Final Result [facility] [address] [place] [address], documented in this encounter Visit Diagnoses Not on filedocumented in this encounter Care Teams Coating Inspector Relationship Specialty Start Date End Date Suzanna Mcgill [address] [place] [address] PCP - General 08/14/22 documented as of this encounter
--- OUTSIDE RECORDS SUMMARY | 2025-05-10 15:52 | XMS_ITS | Encounter Summary ---
Author Organization [facility] Address [address] [place] [address] Care Team Providers Care Concaving Machine Operator Name Role Phone Giovanna Thapa MD Unavailable Suzanna Mcgill DO Primary Care Provider Giovanna Thapa MD Unavailable Aminata Moreno MD Primary Care Provider Anayeli vailable Reason for Visit * Reason Comments Medication Refill Encounter Details Date Type Department Care Team (Late st Contact Info) Description 07/05/2023 Refill [facility] [address] [phone] Mary Bella, [employer] LAMINATING OPERATOR [address] [place] [address] Medication Refill Social History Tobacco Use Types [...] Description 10/13/2025 9:40 AM EST Office Visit [facility] [address] [phone] Givoanna Thapa MD [address] [place] [phone] documented as of this encounter Visit Diagnoses Diagnosis Hypertension, unspecified type documented in this encounter Care Teams Concaving Machine Operator Relationship Specialty Start Date End Date Suzanna Mcgill DO [address] [place] [phone] PCP - General Family Medicine 03/27/23 04/06/25 Aminata Moreno MD PCP - General Family Medicine 04/07/25 Giovanna Thapa MD [address] [place] [address] Primary Seamless Tube Roller Cardiovascular Disease 08/29/21 Giovanna Thapa MD [address] [place] [address] Primary Seamless Tube Roller Interventional Cardiology 02/23/25 documented as of this encounter
--- OUTSIDE RECORDS SUMMARY | 2025-05-10 15:52 | XMS_ITS | Clinical Summary ---
Author Organization [facility] Address [address] [place] [address] Phone Care Team Providers Care Kiln Burner Name Role Phone Aminata Moreno MD Primary Care Provider Social History Tobacco Use Types Packs/Day Years [...] on file Sexual Orientation Not on file Plan of Treatment Not on file Medical Devices Not on file Insurance [facility] MEDICARE REPLACEMENT [place] [id number] [facility] MEDICARE REPLACEMENT [facility] MEDIC[facility] REPL[facility]EMENT Care Teams Kiln Burner Relationship Specialty Start Date End Date Aminata Moreno MD [address] [place] [phone] [email or web address] PCP - General 04/08/24 Additional Source Comments The information contained in this document represents components of the legal health record. It is not the complete legal health record.[facility]
--- OUTSIDE RECORDS SUMMARY | 2025-05-10 15:52 | XMS_ITS | Encounter Summary ---
Author Organization [facility] Address [address] [place] [address] Care Team Providers Care Stock Preparation Supervisor Name Role Phone mAinata Moreno MD Primary Care Provider Encounter Details Date Type Department Care Team (Late st Contact Info) Description 07/10/2024 Lab Requisition [facility] [address] [place] [address] Ally Ortega MD [address] [place] [phone] Streptococcal infection, unspecified site Social History Tobacco [...] Care Team (Late st Contact Info) Description 05/16/2025 11:00 AM EDT Office Visit [facility] Hematology Oncology [address] [place] [address] Lamar Cotton MD [address] [place] [address] 05/24/2025 1:00 PM EDT Office Visit Adult Medicine - [place] [address] [place] [address] Aminata Moreno MD [address] [place] [address] 05/26/2025 9:15 AM EDT Appointment [facility] Radiation Oncology [address] [place] [phone] 05/26/2025 10:00 AM EDT Appointment [facility] Radiation Oncology [address] [place] [phone] Olesya Marquez MD [address] [place] [address] 09/14/2025 11:00 AM EST Telemedicine Infectious Disease - [place] [address] [place] [address] Neelima Peoples MD [address] [place] [address] documented as of this encounter Visit Diagnoses Diagnosis Streptococcal infection, unspecified site documented in this encounter Additional Health Concerns Infection Onset Date Last Indicated Resolved Time Tuberculosis Rule-Out 09/06/2024 09/06/20242024 8:27 AM EST documented as of this encounter Care Teams Stock Preparation Supervisor Relationship Specialty Start Date End Date Aminata Moreno MD [address] [place] [address] PCP - General Internal Medicine 10/21/24 documented as of this encounter
--- OUTSIDE RECORDS SUMMARY | 2025-05-10 15:52 | XMS_ITS | Encounter Summary ---
Author Organization [facility] Address [address] [place] [address] [place] [phone] Phone Care Team Providers Care Depalletizer Operator Name Role Phone Aminata Moreno MD Primary Care Provider Reason for Referral * MRI/CAT Scan - Closed Specialty Diagnoses / Procedures Referred By Contac t Referred To Contact Radiology Diagnoses Squamous cell carcinoma of skin of other parts of face Procedures CT Neck Sandra Choe MD Phone: tel: fax: [email or web address] Referral ID Status Reason Start Date Expiration Date Visits Re quested Visits Authorized [id number] Closed 03/31/2024 03/31/2025 1 1 * MRI/CAT Scan - Closed Specialty Diagnoses / Procedures Referred By Erica kaye Referred To Contact Radiology Diagnoses Squamous cell carcinoma of skin of other parts of face Procedures CT Chest Sandra Choe MD Phone: tel: fax: [email or web address] Referral ID Status Reason Start Date Expiration Date Visits Re quested Visits Authorized [id number] Closed 03/31/2024 03/31/2025 1 1 Encounter Details Date Type Department Care Team (Late st Contact Info) Description 03/31/2024 Transcribe Orders [facility] Department [address] [place] [address] Sandra Choe MD [address] [place] [id number] [email or web address] Squamous cell carcinoma of skin of other parts of face (Primary Dx) Social History Tobacco Use Types Packs/Day Years [...] on file documented as of this encounter Results * CT NECK SOFT TISSUE WITH CONTRAST (04/14/2024 1:18 PM EDT) Anatomical Region Laterality Modality Neck Computed Tomogra phy 04/19/2024 9:49 AM EDT Impressions 04/19/2024 10:10 AM EDT 1. Postsurgical/posttreatment changes without evidence of recurrent tumor in the neck Narrative 04/19/2024 10:[address] NECK SOFT TISSUE WITH CONTRAST Referring clinician's provided indication for this examination in Epic: Outside Radiology Order; squamous cell carcinoma of skin of other parts of face TECHNIQUE: Multidetector-row CT of the neck was performed with intravenous contrast using tailored dose modulation techniques. Images were reconstructed in the axial, coronal, and sagittal planes. COMPARISON: FINDINGS: Aerodigestive Tract: Normal. The mucosa appears symmetrical. Lymph Nodes: Status post right neck dissection. No enlarged or abnormal- appearing cervical lymph nodes. Salivary Glands: The right submandibular gland has been resected. No lesions identified within the left mandibular glands or bilateral parotid glands. Thyroid Gland: The gland is homogenous in attenuation. Vessels: The major cervical vessels are patent. There is atherosclerotic calcification of the carotid bifurcations. Paranasal Sinuses and Mastoids: The paranasal sinuses and mastoid air cells are well-aerated. Brain and Orbits: No acute abnormality is identified in the imaged portions of the brain and orbits. There are prominent scattered foci of hypodensity in cerebral white matter, likely a manifestation of chronic small vessel disease. Lung Apices: Please see separately dictated chest CT report. Bones and Soft Tissues: Status post right cheek/infraorbital resection, including resection of the anterior wall of the right maxilla, with flap reconstruction. No nodular enhancing soft tissue in this region. No expansion of the right infraorbital canal. No osseous lesions. Bulky anterior bridging osteophytes at C3-4 and C4-5. Procedure Note Dheeraj Oates MD - 04/19/2024 CT NECK SOFT TISSUE WITH CONTRAST Referring clinician's provided indication for this examination in Epic:Outside Radiology Order; squamous cell carcinoma of skin of other parts offace TECHNIQUE: Multidetector-row CT of the neck was performed with intravenouscontrast using tailored dose modulation techniques. Images werereconstructed in the axial, coronal, and sagittal planes. COMPARISON: FINDINGS: Aerodigestive Tract: Normal. The mucosa appears symmetrical. Lymph Nodes: Status post right neck dissection. No enlarged orabnormal-appearing cervical lymph nodes. Salivary Glands: The right submandibular gland has been resected. Nolesions identified within the left mandibular glands or bilateral parotidglands. Thyroid Gland: The gland is homogenous in attenuation. Vessels: The major cervical vessels are patent. There is atheroscleroticcalcification of the carotid bifurcations. Paranasal Sinuses and Mastoids: The paranasal sinuses and mastoid aircells are well-aerated. Brain and Orbits: No acute abnormality is identified in the imagedportions of the brain and orbits. There are prominent scattered foci ofhypodensity in cerebral white matter, likely a manifestation of chronicsmall vessel disease. Lung Apices: Please see separately dictated chest CT report. Bones and Soft Tissues: Status post right cheek/infraorbital resection,including resection of the anterior wall of the right maxilla, with flapreconstruction. No nodular enhancing soft tissue in this region. Noexpansion of the right infraorbital canal. No osseous lesions. Bulkyanterior bridging osteophytes at C3-4 and C4-5. IMPRESSION: 1. Postsurgical/posttreatment changes without evidence of recurrent tumorin the neck us Sandra Choe MD IMG CT XSPECIALTY AMY PEPPER Final Result * CT CHEST WITH CONTRAST (04/14/2024 1:18 PM EDT) Anatomical Region Laterality Modality Chest Computed Tomogra phy 04/20/2024 9:20 AM EDT Impressions 04/20/2024 9:24 AM EDT 1. No convincing evidence of metastatic disease in the chest. 2. Minimal groundglass opacities in the posterior right upper lobe, likely infectious/inflammatory in etiology, may be due to aspiration. Narrative 04/20/2024 9:[address] CHEST WITH CONTRAST Referring clinician's provided indication for this examination in Epic: Outside Radiology Order; squamous cell carcinoma of skin of other parts of face TECHNIQUE: Multidetector CT of the chest was performed with intravenous contrast using tailored dose modulation techniques. COMPARISON: None available. FINDINGS: Devices/Tubes/Lines: None. Lungs: A 4 mm linear nodule is in the subpleural right middle lobe (6:304) and a triangular 3 mm nodule is in the subpleural left lower lobe (6:245), may represent intrapulmonary lymph nodes. Minimal groundglass opacities in the posterior right upper lobe (6:196). No focal consolidation. Patent central airways.. Pleura: No pleural effusion or pneumothorax. Mediastinum: Concurrent CT neck reported separately. The heart size is normal. No pericardial effusion. Severe amount of coronary calcifications. Lymph Nodes: No enlarged supraclavicular, axillary, mediastinal, or hilar lymph nodes. Upper Abdomen: No abnormality detected in the visualized upper abdomen. Chest Wall: No chest wall mass. Bones: No suspicious lytic or blastic lesions. Degenerative changes are in the imaged spine with features compatible with diffuse idiopathic skeletal hyperostosis (multilevel contiguous anterior bridging of osteophytes). Procedure Note Renetta Paredes MD - 04/20/2024 CT CHEST WITH CONTRAST Referring clinician's provided indication for this examination in [facility]:Outside Radiology Order; squamous cell carcinoma of skin of other parts offace TECHNIQUE: Multidetector CT of the chest was performed with intravenouscontrast using tailored dose modulation techniques. COMPARISON: None available. FINDINGS: Devices/Tubes/Lines: None. Lungs: A 4 mm linear nodule is in the subpleural right middle lobe (6:304)and a triangular 3 mm nodule is in the subpleural left lower lobe (6:245),may represent intrapulmonary lymph nodes. Minimal groundglass opacities inthe posterior right upper lobe (6:196). No focal consolidation. Patentcentral airways.. Pleura: No pleural effusion or pneumothorax. Mediastinum: Concurrent CT neck reported separately. The heart size isnormal. No pericardial effusion. Severe amount of coronarycalcifications. Lymph Nodes: No enlarged supraclavicular, axillary, mediastinal, or hilarlymph nodes. Upper Abdomen: No abnormality detected in the visualized upper abdomen. Chest Wall: No chest wall mass. Bones: No suspicious lytic or blastic lesions. Degenerative changes are inthe imaged spine with features compatible with diffuse idiopathic skeletalhyperostosis (multilevel contiguous anterior bridging of osteophytes). IMPRESSION: 1. No convincing evidence of metastatic disease in the chest. 2. Minimal groundglass opacities in the posterior right upper lobe,likely infectious/inflammatory in etiology, may be due to aspiration. Sandra Choe MD IMG CT CHEST Final Result documented in this encounter Visit Diagnoses Diagnosis Squamous cell carcinoma of skin of other parts of face- Primary Squamous cell carcinoma of skin of other parts of face documented in this encounter Care Teams Depalletizer Operator Relationship Specialty Start Date End Date Aminata Moreno MD [address] [place] [phone] [email or web address] PCP - General 04/08/24 documented as of this encounter Additional Source Comments The information contained in this document represents components of the legal health record. It is not the complete legal health record.[facility]
--- OUTSIDE RECORDS SUMMARY | 2025-05-10 15:52 | XMS_ITS | Clinical Summary ---
Author Organization [employer] [facility] Address [address] [place] [address] Phone Care Team Providers Care Crop Duster Name Role Phone Aminata Moreno MD Primary [...] 30 tablet 11 5 01/26/20 26 Active fluorouraciL (FLUOROPLEX) 1 % cream Apply 1 Application topically 2 (two) times a day. 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 Head and neck cancer ([facility] V24, [facility] V28) 09/03/2022 Assessment & Plan (08/25/2024 12:48 PM EST): CT head and neck performed 08/18/2024: All negative for mass, metastatic disease, lymphadenopathy. Followed closely by radiation oncology. See note below. Infrarenal abdominal aortic aneurysm (AAA) without rupture ([facility] V24) 08/27/2022 Overview (08/17/2024): PET/CT TUMOR IMAGING SKULL BASE TO MID-THIGH ? 08/26/2022 Moderate calcified and sclerosis of the aortoiliac tree with fusiform infrarenal aneurysm measuring 3.1 cm Hyponatremia 11/12/2021 CLL (chronic lymphocytic gricel kemia) ([facility] V24, [facility] V28) 01/13/2019 Overview (05/21/2024): Dr Cotton [...] outpatient management. Coronary artery disease invo lving gulkana coronary artery of gulkana heart without angina pectoris 12/05/2017 Assessment & [...] Encounters Date Type Department Care Team Description 03/31/2025 10:00 AM EDT Consult Adult Medicine - [address] [phone] Aminata Moreno MD Pre-op examination (Primary Dx); Colostomy in place (CMS/HCC V24, CMS/HCC V28); Other iron deficiency anemia; CLL (chronic lymphocytic leukemia) (CMS/HCC V24, [facility] V28); Primary hypertension; S/P drug eluting coronary stent placement; Recurrent squamous cell carcinoma of skin; History of revision of total replacement of right hip joint 03/31/2025 Telephone [facility] Hematology Oncology [address] [place] [phone] Lamar Cotton MD 03/24/2025 1:24 PM EDT - 03/24/2025 11:59 PM EDT Hospital Encounter [facility] Radiation Oncology [address] [place] [phone] Olesya Marquez MD Squamous cell carcinoma of forehead (Primary Dx) Discharge Disposition: Home or Self Care 03/24/2025 1:01 PM EDT - 03/24/2025 11:59 PM EDT Hospital Encounter [facility] Radiation Oncology [address] [place] [phone] Discharge Disposition: Home or Self Care 03/17/2025 Telephone [facility] Radiation Oncology [address] [place] [phone] Jenniffer Darby MA 03/16/2025 11:00 AM EDT Telemedicine Infectious Disease - [place] [address] [place] [address] Neelima Peopels MD Infection of prosthetic joint, subsequent encounter (Primary Dx) 03/16/2025 Telephone Adult Medicine - [place] [address] [place] [phone] Aminata Moreno MD 03/14/2025 Telephone [facility] Radiation Oncology [address] [place] [address] Jennifer Brothers RN 03/10/2025 10:01 AM EDT - 03/10/2025 11:59 PM EDT Hospital Encounter [facility] CT Scan [address] [place] [phone] Recurrent squamous cell carcinoma of skin Discharge Disposition: Home or Self Care 03/08/2025 10:26 AM EDT - 03/08/2025 11:59 PM EDT Hospital Encounter [facility] CT Scan [address] [place] [phone] Recurrent squamous cell carcinoma of skin Discharge Disposition: Home or Self Care 02/28/2025 10:15 AM EDT Office Visit [facility] Hematology Oncology [address] [place] [address] Lamar Cotton MD CLL (chronic lymphocytic leukemia) (CMS/HCC V24, CMS/HCC V28) (Primary Dx); Other non-autoimmune hemolytic anemias (CMS/HCC V24, CMS/HCC V28); Head and neck cancer (CMS/HCC V24, CMS/HCC V28) 02/23/2025 Telephone Adult Medicine - [place] [address] [place] [phone] Aminata Moreno MD 02/17/2025 Telephone Adult Medicine [facility] [address] [place] [phone] Aminata Moreno MD from Last 3 Months Immunizations Name [...] eservative (Fluzone; Afluria) 6mo and older 06/09/2014,06/15/2013,07/01/2011 [email or web address] SARS-CoV-2 COVID-19, mRNA, LNP-S, preservative free 08/06/2023 [...] Site/Laterality Comments OTHER SURGICAL HISTORY Bilateral PROCEDURE: MD ARTHRP ACETBLR/PROX FEM PROSTC AGRFT/ALGRFT; COMMENT: bilateral CORONARY STENT PLACEMENT 2004 PROCEDURE: STENT, CORONARY, ELIZABET COLONOSCOPY 2008 [facility] PROCEDURE: HISTORICAL COLONOSCOPY; COMMENT: Incomplete OTHER SURGICAL HISTORY 03/06/2017 PROCEDURE: COLON CA SCRN NOT HI RSK IND; COMMENT: hemorrhoids; completed to hepatic flexure; repeat in 10 yrs. OTHER SURGICAL HISTORY 03/18/2017 PROCEDURE: RADIOLOGIC EXAM COLON SINGLE CONTRAST STUDY; COMMENT: diverticulosis, but study limited because of redundnat colon, and limited filling of ascending colon OTHER SURGICAL HISTORY 09/03/2022 Right PROCEDURE: HISTORY OTHER; COMMENT: Yuki Vicki- removal of growth - SCC on Rt [...] HIP PROSTHESIS; Surgeon: Babak Carrasquillo MD; Location: [facility]); Service: Orthopedics; Laterality: Right; Medical History Medical [...] hx of CLL (chronic lymphocytic gricel kemia) ([facility] V24, [facility] V28) 08/12/2024 IMPROVING Coronary artery disease invo lving gulkana coronary artery of gulkana heart without angina pectoris 12/05/2017 DX:Coronary artery disea se involving gulkana coronary artery of gulkana heart without angina pectoris Essential hypertension 12/05/2017 DX:Essent ial hypertension Pure hypercholesterolemia 12/05/2017 DX:Pur e hypercholesterolemia Osteoarthritis DX:Osteoarthriti s Chronic constipation DX:Chronic constipation GI (gastrointestinal bleed) D/T HEMORROIDS REQUIRED TRANSFUSION 07/2023 Hemorrhoid DX:Hemorrhoid Anemia DX:Anemia;COMMEN T:HX History of transfusion COMMENT:D /T HEMORROIDS 07/2023 Cancer ([facility] V24, [facility] V28) DX:Cancer (HCC);COMMENT:CLL- NO TX Skin cancer 2022 SCC FACE AND NEC K- GIOVANI, CHEMO, RAD [place] Melanoma ([facility] V24, [facility] V28) 05/2022 DX:Melanoma (HCC) Family History [...] Sign Reading Time Taken Comments Blood Pressure 116/70 03/31/2025 9:50 AM EDT Pulse 60 03/31/2025 9:50 AM EDT Temperature 36.3 C (97.3 F) 03/31/2025 9:50 AM EDT Respiratory Rate 16 03/24/2025 1:33 PM EDT Oxygen Saturation 100% 03/24/2025 1:33 PM EDT Inhaled Oxygen Concentration - - Weight 84.2 kg (185 lb 9.6 oz) 03/31/2025 9:50 A M EDT Height 182 cm (5' 11.65 ) 03/31/2025 9:50 AM EDT Body Mass Index 25.42 03/31/2025 9:50 AM EDT Plan of Treatment Upcoming Encounters Date Type Department Care Team (Late st Contact Info) Description 05/16/2025 11:00 AM EDT Office Visit [facility] Hematology Oncology [address] [place] [phone] Lamar Cotton MD [address] [place] [address] 05/24/2025 1:00 PM EDT Office Visit Adult Medicine - [place] [address] [place] [phone] Aminata Moreno MD [address] [place] [address] 05/26/2025 9:15 AM EDT Appointment [facility] Radiation Oncology [address] [place] [phone] 05/26/2025 10:00 AM EDT Appointment [facility] Radiation Oncology [address] [place] [phone] Olesya Marquez MD [address] [place] [phone] 09/14/2025 11:00 AM EST Telemedicine Infectious Disease - [place] [address] [place] [phone] Neelima Peoples MD [address] [place], [place] [phone] Health Maintenance Due Date Last Done Comments Zoster Vaccines (1 of 2) 02/10/2015 12/16/2014 Social Influencers of Health Screening 08/15/2022 COVID-19 Vaccine ( season) 2025 08/06/2023, 08/06/2023, 06/27/2022, Additional history exists Influenza Vaccine (#1) 2025 , 08/06/2023, 08/06/2023, Additional history exists Medicare Annual Wellness Visit 12/13/2025 12/13/2024 Falls Risk Assessment 01/20/2026 01/20/2025, 025 Hypertension/CHF/CAD Annual BMP Blood Test 04/12/2026 04/12/2025, 03/29/2025, 03/15/2025, Additional history exists Cholesterol Screening (Lipid Panel) [...] 04/02/2011 RSV Immunization Adult Patients Completed 09/10/2023 Depression Screening Completed 12/13/2024 HIB Vaccines Aged Out No longer eligi [...] this topic Medical Devices Implanted Type Area Tariff Compiler Device Identifier Shelf Expiration Date Model / Serial / Lot Sponge Surgifoam Gel 12 X 7mm - [id number] Implanted:Qty : 1 on 09/14/2024 by Babak Carrasquillo MD at [facility] Hemostasis Right: Hip [employer] [id number] 08/13/20261971 / / [id number] Screw Bone 6.5x35mm Trilogy - [id number] Implanted:Qty : 1 on 09/14/2024 by Babak Carrasquillo MD at [facility] Internal and External Fixation Right: Hip [employer] 03/30/2034 [id number] / / [id number] Screw Bone 6.5x40mm Trilogy - [id number] Implanted:Qty : 1 on 09/14/2024 by Babak Carrasquillo MD at [facility] Internal and External Fixation Right: Hip [employer] 10/31/2033 [id number] / / [id number] Screw Bone 6.5x25mm Trilogy - [id number] Implanted:Qty : 1 on 09/14/2024 by Babak Carrasquillo MD at [facility] Internal and External Fixation Right: Hip [employer] 03/23/2034 [id number] / / [id number] Screw Bone 6.5x20mm Trilogy - Sna - [id number] Implanted:Qty : 2 on 09/14/2024 by Babak Carrasquillo MD at [facility] Internal and External Fixation Right: Hip [employer] [id number] 02/25/2034 [id number] / NA / [id number] Screw Bone 6.5x20mm Trilogy - [id number] Implanted:Qty : 1 on 09/14/2024 by Babak Carrasquillo MD at [facility] Internal and External Fixation Right: Hip [employer] 03/02/2034 [id number] / / [id number] Screw Bone 6.5x20mm Trilogy - [id number] Implanted:Qty : 1 on 09/14/2024 by Babak Carrasquillo MD at [facility] Internal and External Fixation Right: Hip [employer] [id number] 12/29/2033 [id number] / / [id number] Screw Bone 6.5x40mm Trilogy - Sna - [id number] Implanted:Qty : 1 on 09/14/2024 by Babak Carrasquillo MD at [facility] Internal and External Fixation Right: Hip [employer] [id number] / NA / [id number] Hip Hd Constrn Frdm -6mm - [id number] Implanted:Qty : 1 on 09/14/2024 by Babak Carrasquillo MD at [facility] Hip Right: Hip [employer] [id number] 06/16/2033 [id number] / / [id number] Plate Personal Care Attendant Troch Lg 210mm Vitallium W 2 2mm Cabl Stry-Howm 6747-0-331-36 3390 Implanted:Qty : 1 on 06/08/2024 by Babak Carrasquillo MD Right: Hip [employer] [id number] 02/19/2028 6704-3-093 / / [id number] Cable Slv Set D-M Bead 2.0mm Vit Med Stry-Howm 6404-0-344-11 4159 Implanted:Qty : 1 on 06/08/2024 by Babak Carrasquillo MD Right: Hip [employer] [id number] 11/17/2028 6704-0-510 / / [id number] Cable Slv Set D-M Bead 2.0mm Vit Med Stry-Howm 4246-7-406-11 4159 Implanted:Qty : 1 on 06/08/2024 by Babak Carrasquillo MD Right: Hip [employer] [id number] 11/17/2028 6704-0-510 / / [id number] Cable Slv Set D-M Bead 2.0mm Vit Med Stry-Howm 9015-4-815- 4159 Implanted:Qty : 1 on 06/08/2024 by Babak Carrasquillo MD Right: Hip [employer] [id number] 11/17/2028 6704-0-510 / / [id number] Cement Bone Surg Simplex Radiopq Stry-Howm 0123-0-673-11 4092 Implanted:Qty : 1 on 06/08/2024 by Babak Carrasquillo MD Right: Hip [employer] [id number] 05/08/2026 6191-1-010 / / [id number] Cement Bone Surg Simplex Radiopq Stry-Howm 6121-0-307- 4092 Implanted:Qty : 1 on 06/08/2024 by Babak Carrasquillo MD Right: Hip [employer] [id number] 05/08/2026 6191-1-010 / / [id number] Impl Set Bead 2.0mm Vit Brandt Canseco Stry-Howm 9249-4-208-11 4128 Implanted:Qty : 1 on 06/08/2024 by Babak Carrasquillo MD Right: Hip [employer] [id number] 01/19/2029 6704-0-520 / / [id number] Impl Set Bead 2.0mm Vit Brandt Canseco Stry-Howm 2878-0-373-11 4128 Implanted:Qty : 1 on 06/08/2024 by Babak Carrasquillo MD Right: Hip [employer] [id number] 01/19/2029 6704-0-520 / / [id number] Impl Set Bead 2.0mm Vit Brandt Canseco Stry-How 8023-7-125-11 4128 Implanted:Qty : 1 on 06/08/2024 by Babak Carrasquillo MD Right: Hip [employer] [id number] 01/09/2029 6704-0-520 / / [id number] Impl Set Bead 2.0mm Vit Brandt Canseco Stry-Howm 8599-0-247-11 4128 Implanted:Qty : 1 on 06/08/2024 by Babak Carrasquillo MD Right: Hip [employer] [id number] 01/09/2029 6704-0-520 / / [id number] Impl Set Bead 2.0mm Vit Brandt Canseco Stry-Howm 2265-2-478-11 4128 Implanted:Qty : 1 on 06/08/2024 by Babak Carrasquillo MD Right: Hip [employer] [id number] 10/06/2028 6704-0-520 / / [id number] Cable Slv Set D-M Bead 2.0mm Vit Med Stry-Howm 3544-6-170-11 4159 Implanted:Qty : 1 on 06/08/2024 by Babak Carrasquillo MD Right: Hip [employer] [id number] 11/17/2028 6704-0-510 / / [id number] [place] Constrained Liner Neutral 36mm Size I Implanted:Qty : 1 on 09/14/2024 by Babak Carrasquillo MD at [facility] Right: Hip [employer] 03/20/2027 [id number] / [id number] / [id number] Implant Record G7 [place] Multihole 68mm Implanted:Qty : 1 on 09/14/2024 by Babak Carrasquillo MD at [facility] Right: Hip [employer] 04/04/2026 [id number] / NA / [id number] Implant Record Tatianna Con Sz A Std 50mm Implanted:Qty : 1 on 09/14/2024 by Babak Carrasquillo MD at [facility] Right: Hip [employer] [id number] 09/19/2031 11-770207 / NA / [id number] Implant Record Implanted:Qty : 1 on 09/14/2024 by Babak Carrasquillo MD at [facility] Right: Hip [employer] [id number] 11/13/2033 11-908052 / NA / [id number] Explanted Type Area Tariff Compiler Device Identifier Shelf Expiration Date Model / Serial / Lot Bone Cement Explanted:Qty : 2 on 09/14/2024 by Bbaak Carrasquillo MD at [facility] Bone Cement Right: Hip [employer] 09/15/2024 000 / 000 / 000 Procedures Procedure Name Priority Date/Time Associated Diagnosis Comments CBC WITH AUTO DIFFERENTIAL Routine 04/12/2025 2:03 PM EDT CLL (chronic lymphocytic leukemia) (CMS/HCC V24, [facility] V28) Anemia, unspecified type TYPE AND SCREEN Routine 04/12/2025 2:03 PM EDT Iron deficiency anemia due to chronic blood loss Recurrent squamous cell carcinoma of skin COMPREHENSIVE METABOLIC PANEL Routine 04/12/2025 2:03 PM EDT CLL (chronic lymphocytic leukemia) (CMS/HCC V24, CMS/HCC V28) Anemia, unspecified type CBC AND DIFFERENTIAL Routine 04/12/2025 2:03 PM EDT CLL (chronic lymphocytic leukemia) ([facility]/HCC V24, CMS/HCC V28) Anemia, unspecified type ECG 12-LEAD Routine 03/31/2025 10:33 AM EDT RBC MORPHOLOGY REVIEW Routine 03/29/2025 11:16 AM EDT CLL (chronic lymphocytic leukemia) (CMS/HCC V24, CMS/HCC V28) Anemia, unspecified type CBC WITH AUTO DIFFERENTIAL Routine 03/29/2025 11:16 AM EDT CLL (chronic lymphocytic leukemia) (CMS/HCC V24, CMS/HCC V28) Anemia, unspecified type TYPE AND SCREEN Routine 03/29/2025 11:16 AM EDT Iron deficiency anemia due to chronic blood loss Recurrent squamous cell carcinoma of skin COMPREHENSIVE METABOLIC PANEL Routine 03/29/2025 11:16 AM EDT CLL (chronic lymphocytic leukemia) (CMS/HCC V24, CMS/HCC V28) Anemia, unspecified type CBC AND DIFFERENTIAL Routine 03/29/2025 11:16 AM EDT CLL (chronic lymphocytic leukemia) ([facility]/HCC V24, CMS/HCC V28) Anemia, unspecified type MANUAL DIFFERENTIAL - [facility] WAM Routine 03/15/2025 10:53 AM EDT CLL (chronic lymphocytic leukemia) (CMS/HCC V24, CMS/HCC V28) Anemia, unspecified type CBC WITH AUTO DIFFERENTIAL Routine 03/15/2025 10:53 AM EDT CLL (chronic lymphocytic leukemia) (CMS/HCC V24, CMS/HCC V28) Anemia, unspecified type TYPE AND SCREEN Routine 03/15/2025 10:53 AM EDT Iron deficiency anemia due to chronic blood loss Recurrent squamous cell carcinoma of skin COMPREHENSIVE METABOLIC PANEL Routine 03/15/2025 10:53 AM EDT CLL (chronic lymphocytic leukemia) (CMS/HCC V24, CMS/HCC V28) Anemia, unspecified type HAPTOGLOBIN Routine 03/15/2025 10:53 AM EDT CLL (chronic lymphocytic leukemia) (CMS/HCC V24, CMS/HCC V28) Anemia, unspecified type CBC AND DIFFERENTIAL Routine 03/15/2025 10:53 AM EDT CLL (chronic lymphocytic leukemia) (CMS/HCC [...] V24, CMS/HCC V28) Anemia, unspecified type EXTERNAL COLONOSCOPY REPORT 12/20/2024 LIPID PANEL Routine 10/28/2022 from Last 3 Months or Most Recently Relevant to Health Maintenance Results * (ABNORMAL) CBC auto differential (04/12/2025 2:03 PM EDT) Only the most recent of5 resultswithin the time period is included. [facility] WBC 7.4 4.8 - 10.8 K/mcL LAB HEMETOLOGY METHOD 04/12/2025 7:09 PM [facility] RBC 2.60(L) 4.50 - 5.50 M/mcL LAB HEMETOLOGY METHOD 04/12/2025 7:09 PM [facility] Hemoglobin 9.3(L) 13.5 - 17.5 g/dL LAB HEMETOLOGY METHOD 04/12/2025 7:09 PM [facility] Hematocrit 28.1(L) 42.0 - 54.0 % LAB HEMETOLOGY METHOD 04/12/2025 7:09 PM [facility] MCV 106.4(H) 79.0 - 98.0 FL LAB HEMETOLOGY METHOD 04/12/2025 7:09 PM [facility] MCH 35.2(H) 27.0 - 32.0 pcg LAB HEMETOLOGY METHOD 04/12/2025 7:09 PM [facility] MCHC 33.1 32.0 - 37.0 g/dL LAB HEMETOLOGY METHOD 04/12/2025 7:09 PM [facility] RDW 14.6 11.0 - 15.0 % LAB HEMETOLOGY METHOD 04/12/2025 7:09 PM [facility] Platelets 90(L) 130 - 400 K/mcL LAB HEMETOLOGY METHOD 04/12/2025 7:09 PM [facility] Comment:previously verified by slide 5-27-25 MPV 9.4 7.0 - 11.0 FL LAB HEMETOLOGY METHOD 04/12/2025 7:09 PM [facility] NRBC 0.0 <1.0 % LAB HEMETOLOGY METHOD 04/12/2025 7:09 PM [facility] NRBC Absolute 0.00 <0.10 K/mcL LAB HEMETOLOGY METHOD 04/12/2025 7:09 PM [facility] Neutrophils Relative 7.3 % LAB HEMETOLOGY METHOD 04/12/2025 7:09 PM [facility] Comment:This is an appended report. These results have been appended to a previously preliminary verified report. Lymphocytes Relative 87.0 % LAB HEMETOLOGY METHOD 04/12/2025 7:09 PM [facility] Comment:This is an appended report. These results have been appended to a previously preliminary verified report. Monocytes Relative 4.2 % LAB HEMETOLOGY METHOD 04/12/2025 7:09 PM [facility] Comment:This is an appended report. These results have been appended to a previously preliminary verified report. Eosinophils Relative 0.4 % LAB HEMETOLOGY METHOD 04/12/2025 7:09 PM [facility] Comment:This is an appended report. These results have been appended to a previously preliminary verified report. Basophils Relative 0.3 % LAB HEMETOLOGY METHOD 04/12/2025 7:09 PM [facility] Comment:This is an appended report. These results have been appended to a previously preliminary verified report. Immature Granulocytes Relative 0.8 % LAB HEMETOLOGY METHOD 04/12/2025 7:09 PM [facility] Comment:This is an appended report. These results have been appended to a previously preliminary verified report. Neutrophils Absolute 0.54(L) 1.50 - 7.00 K/mcL LAB HEMETOLOGY METHOD 04/12/2025 7:09 PM [facility] Comment:This is an appended report. These results have been appended to a previously preliminary verified report. Lymphocytes Absolute 6.43(H) 1.00 - 5.00 K/mcL LAB HEMETOLOGY METHOD 04/12/2025 7:09 PM [facility] Comment:This is an appended report. These results have been appended to a previously preliminary verified report. Monocytes Absolute 0.31 0.20 - 1.00 K/mcL LAB HEMETOLOGY METHOD 04/12/2025 7:[address] [facility] Comment:This is an appended report. These results have been appended to a previously preliminary verified report. Eosinophils Absolute 0.03 0.00 - 0.50 K/mcL LAB HEMETOLOGY METHOD 04/12/2025 7:[address] [facility] Comment:This is an appended report. These results have been appended to a previously preliminary verified report. Basophils Absolute 0.02 0.00 - 0.20 K/mcL [facility] 04/12/2025 7:[address] [facility] Comment:This is an appended report. These results have been appended to a previously preliminary verified report. Immature Granulocytes Absolute 0.06(H) 0.00 - 0.03 K/mcL LAB HEMETOLOGY METHOD 04/12/2025 7:[address] [facility] Comment:This is an appended report. These results have been appended to a previously preliminary verified report. Blood Venous blood specimen / Unknown Venipuncture / Unknown 04/12/2025 2:03 PM EDT 04/12/2025 4:35 PM EDT Lamar Daly Cotton MD LAB BLOOD ORDERABLES Final R esult [facility] [address] [place] [address], * Type and screen (04/12/2025 2:03 PM EDT) Only the most recent of5 resultswithin the time period is included. ABO Group A 04/12/2025 6:[address] [facility] Rh Type Positive 04/12/2025 6:[address] [facility] Antibody Screen Negative 04/12/2025 6:[address] [facility] Blood Venous blood specimen / Unknown Venipuncture / Unknown 04/12/2025 2:03 PM EDT 04/12/2025 4:35 PM EDT Lamar Cotton MD LAB BLOOD BANK TEST ORDERABL ES Final Result [facility] [address] [place] [address], [place] [phone] * (ABNORMAL) Comprehensive metabolic panel (04/12/2025 2:03 PM EDT) Only the most recent of5 resultswithin the time period is included. Sodium 132(L) 133 - 145 mmol/L LAB CHEMISTRY METHOD 04/12/2025 5:11 PM [facility] Potassium 3.8 3.5 - 5.5 mmol/L LAB CHEMISTRY METHOD 04/12/2025 5:11 PM [facility] Chloride 100 96 - 110 mmol/L LAB CHEMISTRY METHOD 04/12/2025 5:11 PM [facility] CO2 29 21 - 32 mmol/L LAB CHEMISTRY METHOD 04/12/2025 5:11 PM [facility] Anion Gap 3 3 - 11 LAB CHEMISTRY METHOD 04/12/2025 5:11 PM [facility] Glucose 99 70 - 100 mg/dL LAB CHEMISTRY METHOD 04/12/2025 5:11 PM [facility] BUN 16 5 - 25 mg/dL LAB CHEMISTRY METHOD 04/12/2025 5:11 PM [facility] Creatinine 1.08 0.70 - 1.30 mg/dL LAB CHEMISTRY METHOD 04/12/2025 5:11 PM [facility] eGFR 72 >=60 mL/min/1. 73m2 LAB CHEMISTRY METHOD 04/12/2025 5:[address] [facility] Comment:Calculation based on the Chronic Kidney Disease Epidemiology Collaboration (CKD-EPI) equation refit without adjustment for race. BUN/Creatinine Ratio 14.8 LAB CHEMISTRY METHOD 04/12/2025 5:11 PM [facility] Calcium 8.9 8.5 - 10.5 mg/dL LAB CHEMISTRY METHOD 04/12/2025 5:11 PM [facility] AST (SGOT) 43(H) 10 - 42 unit/L LAB CHEMISTRY METHOD 04/12/2025 5:11 PM [facility] ALT (SGPT) 30 10 - 60 unit/L LAB CHEMISTRY METHOD 04/12/2025 5:11 PM [facility] Alkaline Phosphatase 79 42 - 121 unit/L LAB CHEMISTRY METHOD 04/12/2025 5:11 PM [facility] [facility] Total Protein 6.4 6.0 - 8.0 g/dL LAB CHEMISTRY METHOD 04/12/2025 5:11 PM [facility] Albumin 4.2 3.2 - 5.0 g/dL LAB CHEMISTRY METHOD 04/12/2025 5:11 PM [facility] Total Bilirubin 0.6 0.0 - 1.4 mg/dL LAB CHEMISTRY METHOD 04/12/2025 5:11 PM [facility] Blood Venous blood specimen / Unknown Venipuncture / Unknown 04/12/2025 2:03 PM EDT 04/12/2025 4:35 PM EDT us Lamar Cotton MD LAB BLOOD ORDERABLES Final R esult [facility] [address] [place] [address], * ECG 12 lead (03/31/2025 10:33 AM EDT) us Historical Provider ECG ORDERABLES Final Res ult * (ABNORMAL) RBC morphology review (03/29/2025 11:16 AM EDT) [facility] Rbc Morphology Consistent with indices Consistent with indices, Normal for [place] LAB HEMETOLOGY METHOD 03/29/2025 1:[address] [facility] Platelet Morphology - WAM See Note(A) Normal LAB HEMETOLOGY METHOD 03/29/2025 1:[address] [facility] Comment:PLT: Normal Blood Venous blood specimen / Unknown Venipuncture / Unknown 03/29/2025 11:16 AM EDT 03/29/2025 12:14 PM EDT Lamar Cotton MD LAB BLOOD ORDERABLES Final R esult [facility] [address] [place] [address], * (ABNORMAL) Manual differential (03/15/2025 10:53 AM EDT) Only the most recent of2 resultswithin the time period is included. [facility] Neutrophils % 8.0 % LAB HEMETOLOGY METHOD 03/15/2025 2:[address] [facility] Lymphocytes % 89.0 % LAB HEMETOLOGY METHOD 03/15/2025 2:[address] [facility] Reactive Lymphocyte 2.00 % LAB HEMETOLOGY METHOD 03/15/2025 2:[address] [facility] Monocytes % 2.0 % LAB HEMETOLOGY METHOD 03/15/2025 2:[address] [facility] Eosinophils % 0.0 % LAB HEMETOLOGY METHOD 03/15/2025 2:[address] [facility] Basophils % 0.0 % LAB HEMETOLOGY METHOD 03/15/2025 2:[address] [facility] Neutrophils Absolute Manual 0.76(L) 1.50 - 7.00 K/mcL LAB HEMETOLOGY METHOD 03/15/2025 2:[address] [facility] Lymphocytes Absolute 8.46(H) 1.00 - 5.00 K/mcL LAB HEMETOLOGY METHOD 03/15/2025 2:[address] [facility] Reactive Lymph Abs Manual 0.19(H) 0.00 - 0.00 lym LAB HEMETOLOGY METHOD 03/15/2025 2:[address] [facility] Monocytes Absolute Manual 0.19(L) 0.20 - 1.00 K/mcL LAB HEMETOLOGY METHOD 03/15/2025 2:[address] [facility] Eosinophils Absolute Manual 0.00 0.00 - 0.50 K/mcL LAB HEMETOLOGY METHOD 03/15/2025 2:[address] [facility] Basophils Absolute Manual 0.00 0.00 - 0.20 K/mcL LAB HEMETOLOGY METHOD 03/15/2025 2:[address] [facility] Rbc Morphology Consistent with indices Consistent with indices, Normal for [place] LAB HEMETOLOGY METHOD 03/15/2025 2:[address] [facility] Platelet Morphology - [facility] See Note(A) Normal LAB HEMETOLOGY METHOD 03/15/2025 2:[address] [facility] Comment:PLT: Normal Blood Venous blood specimen / Unknown Venipuncture / Unknown 03/15/2025 10:53 AM EDT 03/15/2025 12:11 PM EDT Lamar Cotton MD LAB BLOOD ORDERABLES Final R esult [facility] [address] [place] [address], * Haptoglobin (03/15/2025 10:53 AM EDT) Only the most recent of3 resultswithin the time period is included. Haptoglobin 16 16 - 200 mg/dL LAB CHEMISTRY METHOD 03/15/2025 1:[address] [facility] Blood Venous blood specimen / Unknown Venipuncture / Unknown 03/15/2025 10:53 AM EDT 03/15/2025 12:12 PM EDT us Lamar Cotton MD LAB BLOOD ORDERABLES Final R esult [facility] [address] [place] [address], * CT Neck Soft Tissue w Contrast (03/10/2025 10:21 AM EDT) Anatomical Region Laterality Modality Head and Neck Computed Tomogra phy 03/14/2025 9:07 AM EDT Impressions 03/14/2025 9:16 AM EDT Impression: No recurrent mass or cervical lymphadenopathy identified. No significant change. 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 Surveillance imaging. Comparison: 11/17/24 Technique: Helical volumetric imaging of the neck was performed during the uneventful intravenous administration of 85 cc Isovue-370. DLP: 379.41 mGy/cm [place] VCT Iterative reconstruction technique Findings: Surgical clips [...] of 85 cc Isovue-370. DLP: 379.41 mGy/cm [place] VCT Iterative reconstruction technique Findings: Surgical clips [...] or cervical lymphadenopathy identified. No significantchange. [place] ([id number]) -------- FINAL REPORT -------- Dictated By: Jailyn Ballesteros Dictated Date: 03/14/2025 09:07 ET Assigned Physician: Jailyn Ballesteros Reviewed and Electronically Signed By: Jailyn Ballesteros Signed Date: 03/14/2025 09:16 ET Workstation ID: [id number] Transcribed By: Self Edit Transcribed Date: 03/14/2025 09:07 ET Mimi Dawson AESTHETICIAN IMG CT PROCEDURES Fin al Result * [...] Signed Date: 03/08/2025 11:24 ET Workstation ID: [id number] Transcribed By: Self Edit Transcribed Date: 03/08/2025 [...] Signed Date: 03/08/2025 11:24 ET Workstation ID: [id number] Transcribed By: Self Edit Transcribed Date: 03/08/2025 11:15 ET Mimi Dawson NP IMG CT PROCEDURES Fin al Result * (ABNORMAL) Reticulocyte count (02/28/2025 10:57 AM EDT) Retic Ct Abs 0.050 0.030 - 0.090 M/mcL LAB HEMETOLOGY METHOD 02/28/2025 11:[address] [facility] Retic Ct Pct 2.1(H) 0.7 - 1.7 % LAB HEMETOLOGY METHOD 02/28/2025 11:[address] [facility] Immature Retic Fract 12.5 2.3 - 15.9 % LAB HEMETOLOGY METHOD 02/28/2025 11:[address] [facility] Reticulocyte Hemoglobin 38.6 >29.0 pcg LAB HEMETOLOGY METHOD 02/28/2025 11:[address] [facility] Blood Venous blood specimen / Unknown Venipuncture / Unknown 02/28/2025 10:57 AM EDT 02/28/2025 11:10 AM EDT Lamar Cotton MD LAB BLOOD ORDERABLES Final R esult [facility] [address] [place] [address], [place] [phone] * External Colonoscopy Report (12/20/2024) Anatomical Region Laterality Modality Endoscopy Provider [facility]~PROCEDURE ORDERABLES Final Result * Lipid panel (10/28/2022) LDL/HDL Ratio 3 <=5 Triglycerides 94 <=150 mg/dL Cholesterol 127 <=200 mg/dL HDL 44 >=40 mg/dL LDL Cholesterol 65 <=100 mg/dL Blood Venous blood specimen / Unknown Historical Provider LAB BLOOD ORDERABLES Jennifer l Result from Last 3 Months or Most Recently Relevant to Health Maintenance Insurance MEDICARE [facility] Advance Directives * Full Code - [...] currently active code status orders. Care Teams C[employer] Duster Relationship Specialty Start Date End Date Aminata Moreno MD [address] [place] [address] [id number] PCP - General Internal Medicine 10/21/24
--- OUTSIDE RECORDS SUMMARY | 2025-05-10 15:52 | XMS_ITS ---
Author Name [facility] Organization Unknown Results Test Name/Text Value Interpretation Date Range Source Bilirub Direct SerPl-mCnc 0.2 mg/dL Normal 09/26/2024 0 - 0.2 [facility] ABO Group Bld A Normal 09/26/2024 [facility] Rh Bld Positive Normal 09/26/2024 [facility] N Bld gp Ab Scn SerPl Ql Negative Normal 09/26/2024 [facility] LDH SerPl L to P-cCnc 342.0 unit/L Above high normal 09/26/2024 125 - 220 [facility] BUN SerPl-mCnc 8.0 mg/dL Below low normal 09/26/2024 9 - 20 [facility] Anion Gap SerPl-sCnc 5.0 Normal 09/26/2024 5 - 14 [facility] Creat SerPl-mCnc 0.6 mg/dL Below low normal 09/26/2024 0.7 - 1.3 [facility] ALT SerPl-cCnc 18.0 unit/L Normal 09/26/2024 7 - 52 [facility] Prot SerPl-mCnc 5.4 g/dL Below low normal 09/26/2024 6.4 - 8.5 [facility] AST SerPl-cCnc 28.0 unit/L Normal 09/26/2024 5 - 40 [facility] eGFRcr SerPlBld CKD-EPI 2020 101.0 mL/min/1.73m2 Normal 09/26/2024 - [facility] Albumin SerPl-mCnc 3.2 g/dL Below low normal 09/26/2024 3.5 - 5 [facility] Bilirub SerPl-mCnc 1.1 mg/dL Above high normal 09/26/2024 0. 3 - 1 [facility] Potassium SerPl-sCnc 3.5 mmol/L Normal 09/26/2024 3.5 - 5.1 [facility] Chloride SerPl-sCnc 96.0 mmol/L Below low normal 09/26/2024 98 - 107 [facility] CO2 SerPl-sCnc 28.0 mmol/L Normal 09/26/2024 24 - 32 [facility] Calcium SerPl-mCnc 8.0 mg/dL Below low normal 09/26/2024 8.4 - 10.2 [facility] BUN/Creat SerPl 13.3 Normal 09/26/2024 12 - 20 [facility] Glucose SerPl-mCnc 93.0 mg/dL Normal 09/26/2024 70 - 199 [facility] ALP SerPl-cCnc 86.0 unit/L Normal 09/26/2024 34 - 104 [facility] Sodium SerPl-sCnc 129.0 mmol/L Below low normal 09/26/2024 1 35 - 145 [facility] aPTT PPP 31.1 sec Normal 09/26/2024 25 - 37 [facility] N PT Bld 12.7 sec Normal 09/26/2024 10.5 - 13.3 [facility] INR PPP 1.1 Normal 09/26/2024 0.8 - 1.1 [facility] N Fibrinogen PPP-mCnc 671.0 mg/dL Above high normal 09/26/2024 145 - 415 [facility] Hct VFr Bld Auto 21.2 % Below low normal 09/26/2024 40 - 54 [facility] Hgb Bld-mCnc 7.3 g/dL Below low normal 09/26/2024 13.5 - 18 [facility] MCV RBC Auto 92.8 FL Normal 09/26/2024 78 - 100 [facility] PMV Bld Auto 6.9 FL Below low normal 09/26/2024 7.4 - 11. 4 [facility] Platelet # Bld Auto 143.0 K/mcL Below low normal 09/26/2024 150 - 450 [facility] RDW RBC Auto-Rto 17.4 % Normal 09/26/2024 12.1 - 17.7 [facility] MCHC RBC Auto-mCnc 34.3 g/dL Normal 09/26/2024 32 - 36 [facility] RBC # Bld Auto 2.28 M/mcL Below low normal 09/26/2024 4.7 - 6 [facility] MCH RBC Qn Auto 31.8 pcg Normal 09/26/2024 25 - 33 [facility] WBC # Bld Auto 9.2 K/mcL Normal 09/26/2024 4 - 10.5 [facility] LDH SerPl L to P-cCnc 271.0 unit/L Above high normal 09/25/2024 125 - 220 [facility] Bilirub Direct SerPl-mCnc 0.2 mg/dL Normal 09/25/2024 0 - 0.2 [facility] BUN/Creat SerPl 18.0 Normal 09/25/2024 12 - 20 [facility] eGFRcr SerPlBld CKD-EPI 2020 107.0 mL/min/1.73m2 Normal 09/25/2024 - [facility] Anion Gap SerPl-sCnc 5.0 Normal 09/25/2024 5 - 14 [facility] Chloride SerPl-sCnc 98.0 mmol/L Normal 09/25/2024 98 - 10 7 [facility] CO2 SerPl-sCnc 28.0 mmol/L Normal 09/25/2024 24 - 32 [facility] Potassium SerPl-sCnc 3.9 mmol/L Normal 09/25/2024 3.5 - 5.1 [facility] AST SerPl-cCnc 23.0 unit/L Normal 09/25/2024 5 - 40 [facility] Prot SerPl-mCnc 5.2 g/dL Below low normal 09/25/2024 6.4 - 8.5 [facility] Creat SerPl-mCnc 0.5 mg/dL Below low normal 09/25/2024 0.7 - 1.3 [facility] Bilirub SerPl-mCnc 1.2 mg/dL Above high normal 09/25/2024 0. 3 - 1 [facility] ALT SerPl-cCnc 14.0 unit/L Normal 09/25/2024 7 - 52 [facility] Glucose SerPl-mCnc 101.0 mg/dL Normal 09/25/2024 70 - 199 [facility] Calcium SerPl-mCnc 7.8 mg/dL Below low normal 09/25/2024 8.4 - 10.2 [facility] Albumin SerPl-mCnc 3.1 g/dL Below low normal 09/25/2024 3.5 - 5 [facility] Sodium SerPl-sCnc 131.0 mmol/L Below low normal 09/25/2024 1 35 - 145 [facility] ALP SerPl-cCnc 78.0 unit/L Normal 09/25/2024 34 - 104 [facility] BUN SerPl-mCnc 9.0 mg/dL Normal 09/25/2024 9 - 20 [facility] Fibrinogen PPP-mCnc 617.0 mg/dL Above high normal 09/25/2024 145 - 415 [facility] aPTT PPP 31.2 sec Normal 09/25/2024 25 - 37 [facility] N PT Bld 13.1 sec Normal 09/25/2024 10.5 - 13.3 [facility] INR PPP 1.1 Normal 09/25/2024 0.8 - 1.1 [facility] N Platelet # Bld Auto 126.0 K/mcL Below low normal 09/25/2024 150 - 450 [facility] RBC # Bld Auto 2.34 M/mcL Below low normal 09/25/2024 4.7 - 6 [facility] MCH RBC Qn Auto 31.5 pcg Normal 09/25/2024 25 - 33 [facility] Hct VFr Bld Auto 21.6 % Below low normal 09/25/2024 40 - 54 [facility] Hgb Bld-mCnc 7.4 g/dL Below low normal 09/25/2024 13.5 - 18 [facility] RDW RBC Auto-Rto 17.6 % Normal 09/25/2024 12.1 - 17.7 [facility] WBC # Bld Auto 9.6 K/mcL Normal 09/25/2024 4 - 10.5 [facility] PMV Bld Auto 7.0 FL Below low normal 09/25/2024 7.4 - 11. 4 [facility] MCV RBC Auto 92.2 FL Normal 09/25/2024 78 - 100 [facility] MCHC RBC Auto-mCnc 34.2 g/dL Normal 09/25/2024 32 - 36 [facility] LDH SerPl L to P-cCnc 236.0 unit/L Above high normal 09/24/2024 125 - 220 [facility] Bilirub Direct SerPl-mCnc 0.2 mg/dL Normal 09/24/2024 0 - 0.2 [facility] ALT SerPl-cCnc 11.0 unit/L Normal 09/24/2024 7 - 52 [facility] ALP SerPl-cCnc 70.0 unit/L Normal 09/24/2024 34 - 104 [facility] CO2 SerPl-sCnc 31.0 mmol/L Normal 09/24/2024 24 - 32 [facility] AST SerPl-cCnc 21.0 unit/L Normal 09/24/2024 5 - 40 [facility] Sodium SerPl-sCnc 130.0 mmol/L Below low normal 09/24/2024 1 35 - 145 [facility] Glucose SerPl-mCnc 126.0 mg/dL Normal 09/24/2024 70 - 199 [facility] Calcium SerPl-mCnc 8.0 mg/dL Below low normal 09/24/2024 8.4 - 10.2 [facility] Chloride SerPl-sCnc 95.0 mmol/L Below low normal 09/24/2024 98 - 107 [facility] Anion Gap SerPl-sCnc 4.0 Below low normal 09/24/2024 5 - 14 [facility] Prot SerPl-mCnc 5.2 g/dL Below low normal 09/24/2024 6.4 - 8.5 [facility] Creat SerPl-mCnc 0.5 mg/dL Below low normal 09/24/2024 0.7 - 1.3 [facility] BUN/Creat SerPl 20.0 Normal 09/24/2024 12 - 20 [facility] Potassium SerPl-sCnc 3.8 mmol/L Normal 09/24/2024 3.5 - 5.1 [facility] BUN SerPl-mCnc 10.0 mg/dL Normal 09/24/2024 9 - 20 [facility] eGFRcr SerPlBld CKD-EPI 2020 107.0 mL/min/1.73m2 Normal 09/24/2024 - [facility] Albumin SerPl-mCnc 3.1 g/dL Below low normal 09/24/2024 3.5 - 5 [facility] Bilirub SerPl-mCnc 1.0 mg/dL Normal 09/24/2024 0.3 - 1 [facility] aPTT PPP 31.6 sec Normal 09/24/2024 25 - 37 [facility] N Fibrinogen PPP-mCnc 557.0 mg/dL Above high normal 09/24/2024 145 - 415 [facility] PT Bld 12.2 sec Normal 09/24/2024 10.5 - 13.3 [facility] INR PPP 1.0 Normal 09/24/2024 0.8 - 1.1 [facility] N RBC # Bld Auto 2.47 M/mcL Below low normal 09/24/2024 4.7 - 6 [facility] Platelet # Bld Auto 119.0 K/mcL Below low normal 09/24/2024 150 - 450 [facility] MCH RBC Qn Auto 31.3 pcg Normal 09/24/2024 25 - 33 [facility] MCHC RBC Auto-mCnc 34.2 g/dL Normal 09/24/2024 32 - 36 [facility] Hct VFr Bld Auto 22.6 % Below low normal 09/24/2024 40 - 54 [facility] PMV Bld Auto 7.1 FL Below low normal 09/24/2024 7.4 - 11. 4 [facility] WBC # Bld Auto 10.7 K/mcL Above high normal 09/24/2024 4 - 1 0.5 [facility] Hgb Bld-mCnc 7.7 g/dL Below low normal 09/24/2024 13.5 - 18 [facility] RDW RBC Auto-Rto 17.6 % Normal 09/24/2024 12.1 - 17.7 [facility] MCV RBC Auto 91.3 FL Normal 09/24/2024 78 - 100 [facility] Rh Bld Positive Normal 09/23/2024 [facility] N Bld gp Ab Scn SerPl Ql Negative Normal 09/23/2024 [facility] ABO Group Bld A Normal 09/23/2024 [facility] WBC # Bld Auto 9.1 K/mcL Normal 09/23/2024 4 - 10.5 [facility] Platelet # Bld Auto 102.0 K/mcL Below low normal 09/23/2024 150 - 450 [facility] MCH RBC Qn Auto 31.5 pcg Normal 09/23/2024 25 - 33 [facility] Hct VFr Bld Auto 21.1 % Below low normal 09/23/2024 40 - 54 [facility] Lymphocytes/leuk NFr Bld Auto 79.0 % Above high normal 09/23/2024 20 - 48 [facility] Lymphocytes # Bld Auto 7.2 K/mcL Above high normal 09/23/2024 1 - 3.2 [facility] Monocytes/leuk NFr Bld Auto 0.4 % Below low normal 09/23/2024 2 - 12 [facility] Hgb Bld-mCnc 7.2 g/dL Below low normal 09/23/2024 13.5 - 18 [facility] PMV Bld Auto 7.0 FL Below low normal 09/23/2024 7.4 - 11. 4 [facility] MCHC RBC Auto-mCnc 34.2 g/dL Normal 09/23/2024 32 - 36 [facility] Eosinophil/leuk NFr Bld Auto 0.3 % Normal 09/23/2024 0 - 6 [facility] Basophils # Bld Auto 0.0 K/mcL Normal 09/23/2024 0 - 0.2 [facility] Monocytes # Bld Auto 0.0 K/mcL Normal 09/23/2024 0 - 0.8 [facility] Basophils/leuk NFr Bld Auto 0.2 % Normal 09/23/2024 0 - 2 [facility] Eosinophil # Bld Auto 0.0 K/mcL Normal 09/23/2024 0 - 0.5 [facility] MCV RBC Auto 91.9 FL Normal 09/23/2024 78 - 100 [facility] Neutrophils # Bld Auto 1.8 K/mcL Normal 09/23/2024 1.8 - 7.8 [facility] RDW RBC Auto-Rto 17.6 % Normal 09/23/2024 12.1 - 17.7 [facility] Neutrophils/leuk NFr Bld Auto 20.1 % Below low normal 09/23/2024 44 - 74 [facility] RBC # Bld Auto 2.3 M/mcL Below low normal 09/23/2024 4.7 - 6 [facility] Hgb Bld-mCnc 7.0 g/dL Critically low 09/23/2024 13.5 - 18 C [facility] Hct VFr Bld Auto 20.2 % Below low normal 09/23/2024 40 - 54 [facility] eGFRcr SerPlBld CKD-EPI 2020 101.0 mL/min/1.73m2 Normal 09/22/2024 - [facility] Calcium SerPl-mCnc 7.7 mg/dL Below low normal 09/22/2024 8.4 - 10.2 [facility] Prot SerPl-mCnc 5.2 g/dL Below low normal 09/22/2024 6.4 - 8.5 [facility] Bilirub SerPl-mCnc 0.8 mg/dL Normal 09/22/2024 0.3 - 1 [facility] Albumin SerPl-mCnc 3.2 g/dL Below low normal 09/22/2024 3.5 - 5 [facility] Creat SerPl-mCnc 0.6 mg/dL Below low normal 09/22/2024 0.7 - 1.3 [facility] ALP SerPl-cCnc 58.0 unit/L Normal 09/22/2024 34 - 104 [facility] Chloride SerPl-sCnc 98.0 mmol/L Normal 09/22/2024 98 - 10 7 [facility] CO2 SerPl-sCnc 29.0 mmol/L Normal 09/22/2024 24 - 32 [facility] AST SerPl-cCnc 17.0 unit/L Normal 09/22/2024 5 - 40 [facility] BUN SerPl-mCnc 8.0 mg/dL Below low normal 09/22/2024 9 - 20 [facility] BUN/Creat SerPl 13.3 Normal 09/22/2024 12 - 20 [facility] Potassium SerPl-sCnc 3.5 mmol/L Normal 09/22/2024 3.5 - 5.1 [facility] Anion Gap SerPl-sCnc 4.0 Below low normal 09/22/2024 5 - 14 [facility] Sodium SerPl-sCnc 131.0 mmol/L Below low normal 09/22/2024 1 35 - 145 [facility] Glucose SerPl-mCnc 108.0 mg/dL Normal 09/22/2024 70 - 199 [facility] ALT SerPl-cCnc 10.0 unit/L Normal 09/22/2024 7 - 52 [facility] Haptoglob SerPl-mCnc 31.0 mg/dL Below low normal 09/22/2024 44 - 215 [facility] Bilirub Indirect SerPl-mCnc 0.7 mg/dL Normal 09/22/2024 [facility] Bilirub Direct SerPl-mCnc 0.1 mg/dL Normal 09/22/2024 0 - 0.2 [facility] Bilirub SerPl-mCnc 0.8 mg/dL Normal 09/22/2024 0.3 - 1 [facility] LDH SerPl L to P-cCnc 193.0 unit/L Normal 09/22/2024 125 - 220 [facility] aPTT PPP 32.4 sec Normal 09/22/2024 25 - 37 [facility] N INR PPP 1.1 Normal 09/22/2024 0.8 - 1.1 [facility] N PT Bld 12.6 sec Normal 09/22/2024 10.5 - 13.3 [facility] Fibrinogen PPP-mCnc 455.0 mg/dL Above high normal 09/22/2024 145 - 415 [facility] Monocytes # Bld Auto 0.0 K/mcL Normal 09/22/2024 0 - 0.8 [facility] Neutrophils # Bld Auto 1.6 K/mcL Below low normal 09/22/2024 1.8 - 7.8 [facility] Neutrophils/leuk NFr Bld Auto 18.3 % Below low normal 09/22/2024 44 - 74 [facility] Basophils/leuk NFr Bld Auto 0.1 % Normal 09/22/2024 0 - 2 [facility] Eosinophil/leuk NFr Bld Auto 0.4 % Normal 09/22/2024 0 - 6 [facility] Platelet # Bld Auto 93.0 K/mcL Below low normal 09/22/2024 1 50 - 450 [facility] Eosinophil # Bld Auto 0.0 K/mcL Normal 09/22/2024 0 - 0.5 [facility] RDW RBC Auto-Rto 17.3 % Normal 09/22/2024 12.1 - 17.7 [facility] MCHC RBC Auto-mCnc 34.1 g/dL Normal 09/22/2024 32 - 36 [facility] Monocytes/leuk NFr Bld Auto 0.5 % Below low normal 09/22/2024 2 - 12 [facility] RBC # Bld Auto 2.15 M/mcL Below low normal 09/22/2024 4.7 - 6 [facility] Hct VFr Bld Auto 19.6 % Below low normal 09/22/2024 40 - 54 [facility] WBC # Bld Auto 8.5 K/mcL Normal 09/22/2024 4 - 10.5 [facility] Basophils # Bld Auto 0.0 K/mcL Normal 09/22/2024 0 - 0.2 [facility] MCH RBC Qn Auto 31.1 pcg Normal 09/22/2024 25 - 33 [facility] Lymphocytes/leuk NFr Bld Auto 80.7 % Above high normal 09/22/2024 20 - 48 [facility] Hgb Bld-mCnc 6.7 g/dL Critically low 09/22/2024 13.5 - 18 C [facility] Lymphocytes # Bld Auto 6.9 K/mcL Above high normal 09/22/2024 1 - 3.2 [facility] MCV RBC Auto 91.1 FL Normal 09/22/2024 78 - 100 [facility] PMV Bld Auto 7.3 FL Below low normal 09/22/2024 7.4 - 11. 4 [facility] Hct VFr Bld Auto 19.0 % Below low normal 09/22/2024 40 - 54 [facility] Hgb Bld-mCnc 6.5 g/dL Critically low 09/22/2024 13.5 - 18 C [facility] Hgb Bld-mCnc 7.8 g/dL Below low normal 09/21/2024 13.5 - 18 [facility] Hct VFr Bld Auto 22.8 % Below low normal 09/21/2024 40 - 54 [facility] Transferrin SerPl-mCnc 153.0 mg/dL Below low normal 09/20/2024 204 - 360 [facility] Haptoglob SerPl-mCnc 111.0 mg/dL Normal 09/20/2024 44 - 215 [facility] INR PPP 1.0 Normal 09/20/2024 0.8 - 1.1 [facility] N PT Bld 11.8 sec Normal 09/20/2024 10.5 - 13.3 [facility] Ferritin SerPl-mCnc 163.0 ng/mL Normal 09/20/2024 20 - 25 0 [facility] Vit B12 SerPl-mCnc 1017.0 pcg/mL Above high normal 180 - 914 [facility] Folate SerPl-mCnc 17.6 ng/ml Normal 09/20/2024 - [facility] LDH SerPl L to P-cCnc 162.0 unit/L Normal 09/20/2024 125 - 220 [facility] TIBC SerPl-mCnc 216.0 mcg/dL Below low normal 09/20/2024 250 - 450 [facility] UIBC SerPl-mCnc 118.0 mcg/dL Below low normal 09/20/2024 155 - 355 [facility] Iron SerPl-mCnc 98.0 mcg/dL Normal 09/20/2024 49 - 181 [facility] Iron Satn MFr SerPl 45.0 % Normal 09/20/2024 20 - 45 [facility] Glucose SerPl-mCnc 112.0 mg/dL Normal 09/20/2024 70 - 199 [facility] CO2 SerPl-sCnc 27.0 mmol/L Normal 09/20/2024 24 - 32 [facility] Sodium SerPl-sCnc 133.0 mmol/L Below low normal 09/20/2024 1 35 - 145 [facility] Bilirub SerPl-mCnc 0.8 mg/dL Normal 09/20/2024 0.3 - 1 [facility] Chloride SerPl-sCnc 99.0 mmol/L Normal 09/20/2024 98 - 10 7 [facility] Prot SerPl-mCnc 5.3 g/dL Below low normal 09/20/2024 6.4 - 8.5 [facility] BUN SerPl-mCnc 11.0 mg/dL Normal 09/20/2024 9 - 20 [facility] Potassium SerPl-sCnc 3.7 mmol/L Normal 09/20/2024 3.5 - 5.1 [facility] BUN/Creat SerPl 15.7 Normal 09/20/2024 12 - 20 [facility] Anion Gap SerPl-sCnc 7.0 Normal 09/20/2024 5 - 14 [facility] ALT SerPl-cCnc 14.0 unit/L Normal 09/20/2024 7 - 52 [facility] AST SerPl-cCnc 22.0 unit/L Normal 09/20/2024 5 - 40 [facility] Albumin SerPl-mCnc 3.4 g/dL Below low normal 09/20/2024 3.5 - 5 [facility] Creat SerPl-mCnc 0.7 mg/dL Normal 09/20/2024 0.7 - 1.3 CT [facility] Calcium SerPl-mCnc 7.8 mg/dL Below low normal 09/20/2024 8.4 - 10.2 [facility] ALP SerPl-cCnc 57.0 unit/L Normal 09/20/2024 34 - 104 [facility] eGFRcr SerPlBld CKD-EPI 2020 97.0 mL/min/1.73m2 Normal 09/20/2024 - [facility] BETTINA IGG Negative Normal 09/20/2024 [facility] N BETTINA C3 Positive Normal 09/20/2024 [facility] N BETTINA Polyspecific Positive Normal 09/20/2024 [facility] RBC # Bld Auto 2.07 M/mcL Below low normal 09/20/2024 4.7 - 6 [facility] Platelet # Bld Auto 68.0 K/mcL Below low normal 09/20/2024 1 50 - 450 [facility] MCV RBC Auto 91.2 FL Normal 09/20/2024 78 - 100 [facility] PMV Bld Auto 7.4 FL Normal 09/20/2024 7.4 - 11.4 [facility] Hct VFr Bld Auto 18.9 % Below low normal 09/20/2024 40 - 54 [facility] MCHC RBC Auto-mCnc 34.3 g/dL Normal 09/20/2024 32 - 36 [facility] RDW RBC Auto-Rto 17.5 % Normal 09/20/2024 12.1 - 17.7 [facility] MCH RBC Qn Auto 31.3 pcg Normal 09/20/2024 25 - 33 [facility] Hgb Bld-mCnc 6.5 g/dL Critically low 09/20/2024 13.5 - 18 C [facility] WBC # Bld Auto 8.5 K/mcL Normal 09/20/2024 4 - 10.5 [facility] Monocytes # Bld Manual 0.43 K/mcL Normal 09/20/2024 0 - 0.8 [facility] Lymphocytes # Bld Manual 5.95 K/mcL Above high normal 09/20/2024 1 - 3.2 [facility] Macrocytes Present Occasional Normal 09/20/2024 [facility] Neuts Seg # Bld Manual 1.87 K/mcL Normal 09/20/2024 1.8 - 7.8 [facility] Monocytes/leuk NFr Bld Manual 5.0 % Normal 09/20/2024 2 - 12 [facility] Lymphocytes/leuk NFr Bld Manual 70.0 % Above high normal 09/20/2024 20 - 48 [facility] Basophils/leuk NFr Bld Manual 1.0 % Normal 09/20/2024 0 - 2 [facility] Neuts Seg/leuk NFr Bld Manual 22.0 % Below low normal 09/20/2024 44 - 74 [facility] Neuts Band/leuk NFr Bld Manual 2.0 % Normal 09/20/2024 0 - 15 [facility] Microcytes Present Present Normal 09/20/2024 [facility] Hypochromia Present Present Normal 09/20/2024 [facility] Lg Platelets Bld Ql Auto Platelets Appear Decreased Normal 09/20/2024 [facility] Basophils # Bld Manual 0.09 K/mcL Normal 09/20/2024 0 - 0.2 [facility] Neuts Band # Bld Manual 0.17 K/mcL Normal 09/20/2024 [facility] Polychromasia Present Occasional Normal 09/20/2024 [facility] Ovalocytes Bld Ql Smear Occasional Normal 09/20/2024 [facility] Retics/100 RBC NFr Auto 5.0 % Above high normal 09/20/2024 0.7 - 1.7 [facility] Hct VFr Bld Auto 19.1 % Below low normal 09/20/2024 40 - 54 [facility] Hgb Bld-mCnc 6.5 g/dL Critically low 09/20/2024 13.5 - 18 C [facility] ABO Group Bld A Normal 09/19/2024 [facility] Bld gp Ab Scn SerPl Ql Negative Normal 09/19/2024 [facility] Rh Bld Positive Normal 09/19/2024 [facility] N Hct VFr Bld Auto 15.6 % Below low normal 09/19/2024 40 - 54 [facility] Hgb Bld-mCnc 5.3 g/dL Critically low 09/19/2024 13.5 - 18 C [facility] Hct VFr Bld Auto 17.8 % Below low normal 09/19/2024 40 - 54 [facility] Hgb Bld-mCnc 5.9 g/dL Critically low 09/19/2024 13.5 - 18 C [facility] Hgb Bld-mCnc 7.9 g/dL Below low normal 09/18/2024 13.5 - 18 [facility] Hct VFr Bld Auto 23.4 % Below low normal 09/18/2024 40 - 54 [facility] Hct VFr Bld Auto 19.6 % Below low normal 09/18/2024 40 - 54 [facility] Hgb Bld-mCnc 6.7 g/dL Critically low 09/18/2024 13.5 - 18 C [facility] Hgb Bld-mCnc 7.9 g/dL Below low normal 09/17/2024 13.5 - 18 [facility] Hct VFr Bld Auto 22.6 % Below low normal 09/17/2024 40 - 54 [facility] Hgb Bld-mCnc 6.9 g/dL Critically low 09/16/2024 13.5 - 18 C [facility] Hct VFr Bld Auto 19.5 % Below low normal 09/16/2024 40 - 54 [facility] Hct VFr Bld Auto 16.7 % Below low normal 09/16/2024 40 - 54 [facility] Hgb Bld-mCnc 5.7 g/dL Critically low 09/16/2024 13.5 - 18 C [facility] Hct VFr Bld Auto 20.4 % Below low normal 09/15/2024 40 - 54 [facility] Hgb Bld-mCnc 7.2 g/dL Below low normal 09/15/2024 13.5 - 18 [facility] Lymphocytes/leuk NFr Bld Manual 88.0 % Above high normal 09/14/2024 20 - 48 [facility] Lymphocytes # Bld Manual 8.8 K/mcL Above high normal 09/14/2024 1 - 3.2 [facility] Neuts Seg # Bld Manual 1.2 K/mcL Below low normal 09/14/2024 1.8 - 7.8 [facility] Lg Platelets Bld Ql Auto Platelets Appear Decreased Normal 09/14/2024 [facility] Neuts Seg/leuk NFr Bld Manual 12.0 % Below low normal 09/14/2024 44 - 74 [facility] Hypochromia Present Occasional Normal 09/14/2024 [facility] Microcytes Present Occasional Normal 09/14/2024 [facility] RBC # Bld Auto 2.68 M/mcL Below low normal 09/14/2024 4.7 - 6 [facility] Hgb Bld-mCnc 8.8 g/dL Below low normal 09/14/2024 13.5 - 18 [facility] MCHC RBC Auto-mCnc 34.6 g/dL Normal 09/14/2024 32 - 36 [facility] MCV RBC Auto 95.4 FL Normal 09/14/2024 78 - 100 [facility] Hct VFr Bld Auto 25.5 % Below low normal 09/14/2024 40 - 54 [facility] RDW RBC Auto-Rto 20.3 % Above high normal 09/14/2024 12.1 - 17.7 [facility] WBC # Bld Auto 10.0 K/mcL Normal 09/14/2024 4 - 10.5 [facility] MCH RBC Qn Auto 33.0 pcg Normal 09/14/2024 25 - 33 [facility] Platelet # Bld Auto 61.0 K/mcL Below low normal 09/14/2024 1 50 - 450 [facility] PMV Bld Auto 7.0 FL Below low normal 09/14/2024 7.4 - 11. 4 [facility] Ca-I Bld-mCnc 1.24 mmol/L Normal 09/14/2024 1.19 - 1.35 C [facility] pO2 BldV 59.0 mmHg Normal 09/14/2024 - [facility] PCO2 Temp Corrected Venous, POCT 47.8 mmHg Normal 09/14/2024 - [facility] Potassium BldV-sCnc 4.3 mmol/L Normal 09/14/2024 3.5 - 5. 1 [facility] PO2 Temp Corrected Venous, POCT 56.0 mmHg Normal 09/14/2024 - [facility] Patient Temperature POCT 36.2 C Normal 09/14/2024 [facility] pH Temp Corrected Venous, POCT 7.33 Below low normal 09/14/2024 7.35 - 7.45 [facility] Brandi index Bld+IhG-Rto 50.0 % Normal 09/14/2024 - [facility] pH BldV 7.32 Below low normal 09/14/2024 7.35 - 7.45 [facility] Hgb BldV-mCnc 8.8 g/dL Below low normal 09/14/2024 13.5 - 1 8 [facility] Glucose BldV-mCnc 143.0 mg/dL Normal 09/14/2024 70 - 199 [facility] Hct VFr BldV 26.0 % Below low normal 09/14/2024 40 - 54 [facility] HCO3 BldV-sCnc 25.6 mmol/L Normal 09/14/2024 - [facility] Sodium BldV-sCnc 133.0 mmol/L Below low normal 09/14/2024 13 5 - 145 [facility] SaO2 % BldV 88.0 % Normal 09/14/2024 - [facility] pCO2 BldV 49.5 mmHg Normal 09/14/2024 - [facility] N Base excess BldV Calc-sCnc 0.0 mmol/L Normal 09/14/2024 - [facility] Bld gp Ab Scn SerPl Ql Negative Normal 09/14/2024 [facility] ABO Group Bld A Normal 09/14/2024 [facility] Rh Bld Positive Normal 09/14/2024 [facility] N Ref Lab Test Results See Scanned Result Normal 10/22/2024 [facility] Eosinophil/leuk NFr Fld Manual 2.0 % Above high normal 09/06/2024 0 - 0 [facility] Neutrophils/leuk NFr Fld Manual 11.0 % Normal 09/06/2024 - 25 [facility] Basophils/leuk NFr Fld Manual 1.0 % Above high normal 09/06/2024 0 - 0 [facility] Lymphocytes/leuk NFr Fld Manual 83.0 % Above high normal 09/06/2024 - 75 [facility] Monos+Macros/leuk NFr Fld 3.0 % Normal 09/06/2024 - 70 [facility] RBC # Fld Auto 853238.0 /mm3 Above high normal 09/06/2024 0 - 1 [facility] Clarity Fld Cloudy Normal 09/06/2024 [facility] Color Fld Red Normal 09/06/2024 [facility] N WBC # Fld Auto 710.0 /mm3 Above high normal 09/06/2024 - 150 [facility] Specimen source Fld Synovial Normal 09/06/2024 [facility] HGB BLD MCNC 9.0 g/dL Below low normal 06/15/2024 13.5 - 18 [facility] HCT VFR BLD AUTO 26.4 % Below low normal 06/15/2024 40 - 54 [facility] HCT VFR BLD AUTO 24.3 % Below low normal 06/14/2024 40 - 54 [facility] HGB BLD MCNC 8.5 g/dL Below low normal 06/14/2024 13.5 - 18 [facility] Glomerular filtration rate/1.73 sq M. predicted 101.0 Normal 06/13/2024 60 - [facility] CREAT SERPL MCNC 0.6 mg/dL Below low normal 06/13/2024 0.7 - 1.3 [facility] ABO+RH GP BLD A POSITIVE Normal 06/13/2024 [facility] BLD GP AB SCN SERPL QL NEGATIVE Normal 06/13[facility]-IMP Testing performed at [facility], [address] [place] [id number], Maegan Forbes MD Service Center Supervisor, [facility] [id number] Normal 06/13/2024 [facility] TRANS NUM UNITS PACKED RBC Refer to TYPE AND SCREEN Order, for Red Cell Product Data / Detail Normal 06/13/2024 [facility] HGB BLD MCNC 7.5 g/dL Below low normal 06/13/2024 13.5 - 18 [facility] HCT VFR BLD AUTO 21.6 % Below low normal 06/13/2024 40 - 54 [facility] VANCOMYCIN TROUGH SERPL MCNC 17.7 mcg/mL Normal 06/13/2024 10 - 20 [facility] CREAT SERPL MCNC 0.6 mg/dL Below low normal 06/12/2024 0.7 - 1.3 [facility] Glomerular filtration rate/1.73 sq M. predicted 101.0 Normal 06/12/2024 60 - [facility] HGB BLD MCNC 8.3 g/dL Below low normal 06/12/2024 13.5 - 18 [facility] HCT VFR BLD AUTO 24.3 % Below low normal 06/12/2024 40 - 54 [facility] VANCOMYCIN TROUGH SERPL MCNC 18.4 mcg/mL Normal 06/12/2024 10 - 20 [facility] VANCOMYCIN TROUGH SERPL MCNC 2.3 mcg/mL Below low normal 06/12/2024 10 - 20 [facility] HCT VFR BLD AUTO 24.0 % Below low normal 06/11/2024 40 - 54 [facility] HGB BLD MCNC 8.4 g/dL Below low normal 06/11/2024 13.5 - 18 [facility] HGB BLD MCNC 8.0 g/dL Below low normal 06/11/2024 13.5 - 18 [facility] HCT VFR BLD AUTO 23.1 % Below low normal 06/11/2024 40 - 54 [facility] Glomerular filtration rate/1.73 sq M. predicted 97.0 Normal 06/11/2024 60 - [facility] CREAT SERPL MCNC 0.7 mg/dL Normal 06/11/2024 0.7 - 1.3 [facility] VANCOMYCIN TROUGH SERPL MCNC 11.9 mcg/mL Normal 06/11/2024 10 - 20 [facility] VANCOMYCIN TROUGH SERPL MCNC 74.2 mcg/mL Above high normal 06/11/2024 10 - 20 [facility] TRANS NUM UNITS PACKED RBC Refer to TYPE AND SCREEN Order, for Red Cell Product Data / Detail Normal 06/11/2024 [facility] HCT VFR BLD AUTO 20.1 % Below low normal 06/10/2024 40 - 54 [facility] HGB BLD MCNC 6.9 g/dL Below low normal 06/10/2024 13.5 - 18 [facility] VANCOMYCIN TROUGH SERPL MCNC 8.1 mcg/mL Below low normal 06/09/2024 10 - 20 [facility] HGB BLD MCNC 8.0 g/dL Below low normal 06/09/2024 13.5 - 18 [facility] HCT VFR BLD AUTO 22.9 % Below low normal 06/09/2024 40 - 54 [facility] TRANS NUM UNITS PACKED RBC Refer to TYPE AND SCREEN Order, for Red Cell Product Data / Detail Normal 06/08/2024 [facility] HCT VFR BLD AUTO 26.3 % Below low normal 06/08/2024 40 - 54 [facility] HGB BLD MCNC 8.9 g/dL Below low normal 06/08/2024 13.5 - 18 [facility] CMNT PATIENT-IMP Testing performed at [facility], [address] [place] [phone], Maegan Forbes MD Service Center Supervisor, [facility] [id number] Normal 06/08/2024 [facility] BLD GP AB SCN SERPL QL NEGATIVE Normal 06/08/2024 [facility] ABO+RH GP BLD A POSITIVE Normal 06/08/2024 [facility] TRANS NUM UNITS PACKED RBC Refer to TYPE AND SCREEN Order, for Red Cell Product Data / Detail Normal 06/08/2024 [facility] SYNOVIOCYTES NFR SNV 0.0 /100 WBC Normal 05/24/2024 [facility] MONONUC CELLS NFR SNV MANUAL 1.0 % Normal 05/24/2024 [facility] POLYS NFR SNV MANUAL 99.0 % Normal 05/24/2024 [facility] UNIDENT CELLS NFR SNV 0.0 /100 WBC Normal 05/24/2024 [facility] NUCLEATED CELLS NO. SNV MANUAL 52549.0 /UL Normal 05/24/2024 [facility] RBC NO. SNV MANUAL [id number] /UL Normal 05/24/2024 [facility] History of Medication Use Medication Directions Dispensed Refills Start Date End Date Stat cefadroxil (DURICEF) 500 mg capsule Take 1 capsule (500 mg total) by mouth 2 (two) times a day. 12/01/2024 active predniSONE (DELTASONE) 10 mg tablet Take 6 [...] mg total) 1 (one) ti 10/20/2024 active mineral oil enema 133 mL 133 mL, rectal, Once, On Fri09/24/24 at 1115, For 1 dose 09/24/2024 5 completed sodium phosphate (FLEET) enema 133 mL 133 mL, rectal, Once, On Fri09/24/24 at 1415, For 1 dose 09/24/2024 5 completed sodium chloride 0.9 % infusion 42 mL/hr, intravenous, As needed, pre-, and post- transfusion as needed for line flush purposes, in conjunction with blood product transfusion only, Starting on Chantale 09/23/24 at 1537, -Use only the amount required from a 250 mL bag of NS to adequately flush -A new NS bag is required with each new unit 09/23/2024 active iopamidoL (ISOVUE-370) 370 mg iodine /mL (76 %) injection 85 mL 85 mL, intravenous, Once in imaging, Starting on Fri09/22/24 at 1640, For 1 dose 09/22/2024 5 completed sodium chloride 0.9 % flush 10 mL 10 mL, intravenous, Once, On Fri09/22/24 at 1700, For 1 dose 09/20/2024 5 completed sodium chloride 0.9 % intravenous solution 50 mL 50 mL, intravenous, Once in imaging, Starting on Fri09/22/24 at 1640, For 1 dose 09/20/2024 5 completed iopamidoL (ISOVUE-370) 370 mg iodine /mL (76 %) injection 125 mL 125 mL, intravenous, Once in imaging, Starting on Fri09/20/24 at 1553, For 1 dose 09/20/2024 5 completed cefadroxil 500 mg capsule Take 1 capsule (500 mg total) by mouth 2 (two) times a day with meals. 09/19/2024 5 aborted sodium chloride 0.9 % infusion 100 mL/hr, intravenous, Once, On 09/18/24 at 1515, For 1 dose 09/18/2024 5 completed dexAMETHasone (DECADRON) tablet 8 mg 8 mg, oral, Once, On Fri09/15/24 at 0800, For 1 dose, Phase II/On Unit, For 1 dose post-op. POD#1 in the morning. Hold for patients with the following procedures: I&D with or without poly exchange, resection arthroplasty, removal of prosthesis. 09/15/2024 5 completed bisacodyL (DULCOLAX) suppository 10 mg 10 mg, rectal, Daily PRN, constipation, Starting on Fri09/15/24 at 0000, Phase II/On Unit, Hold for patients with history of IBS, IBO, ileostomy 09/15/2024 active cefTRIAXone (ROCEPHIN) 2 g in sterile water 20 mL IV syringe 2 g, intravenous, at 400 mL/hr, Administer over 3 Minutes, Every 24 hours, First dose (after last reorder) on 09/25/24 at 0930, For 5 days, Do not administer simultaneously with any calcium containing solutions via a Y-site in any patient., Indication: Bone/Joint 09/14/2024 5 active lactated Ringer's infusion 100 mL/hr, intravenous, Continuous, Starting on Fri09/14/24 at 1015, Recovery & On Unit 09/14/2024 aborted methocarbamoL (ROBAXIN) 750 mg tablet Take 1 tablet (750 mg total) by mouth every 6 (six) hours if needed for muscle spasms. 09/14/2024 active oxyCODONE (ROXICODONE) 5 mg immediate release tablet Take 1 tablet (5 mg total) by mouth every 4 (four) hours if needed (pain). Max Daily Amount: 30 mg 09/14/2024 active senna-docusate (PERICOLACE) 8.6-50 mg per tablet Take 1 tablet by mouth 2 (two) times a day. 09/14/2024 aborted HYDROmorphone (DILAUDID) injection 0.5 mg 0.5 mg, intravenous, Every 4 hours PRN, severe pain, Pain scale 7-10, Starting on Fri09/14/24 at 0948, Recovery & On Unit 09/14/2024 active meloxicam (MOBIC) tablet 15 mg 15 mg, oral, Once, On Fri09/14/24 at 0545, For 1 dose, Preprocedure, Do not give for patients >80 y.o. or eCrCl <15mL/min <75yo: dose 15mg 75-80yo: dose 7.5mg >80 = no meloxicam 09/14/2024 5 completed aluminum-magnesium hydroxide-simethico ne (MAALOX) 200-200-20 mg/5 mL suspension 30 mL 30 mL, oral, Every 6 hours PRN, indigestion, Starting on Fri09/14/24 at 0658, Phase II/On Unit 09/14/2024 active benzocaine-menthoL (CEPACOL SORE THROAT) 15-3.6 mg lozenge 1 lozenge 1 lozenge, Mouth/Throat, Every 2 hours PRN, sore throat, Starting on Fri09/14/24 at 0658, Phase II/On Unit 09/14/2024 active calcium carbonate (TUMS) chewable tablet 500 mg 500 mg, oral, Every 4 hours PRN, heartburn, indigestion, Starting on Fri09/14/24 at 0658, Phase II/On Unit, Ordered as calcium carbonate. 500 mg calcium carbonate = 200 mg elemental calcium. 09/14/2024 active magnesium hydroxide (MILK OF MAGNESIA) 400 mg/5 mL suspension 30 mL 30 mL, oral, Daily PRN, constipation, Starting on Fri09/14/24 at 0658, Phase II/On Unit, Hold for patients with history of IBS, IBO, ileostomy 09/14/2024 active metoclopramide (REGLAN) injection 10 mg 10 mg, intravenous, Every 6 hours PRN, nausea, vomiting, Starting on Fri09/14/24 at 0948, Recovery & On Unit, To be given if zofran is ineffective Doses LESS than or equal to 10 mg can be given IV push undiluted over 1 minute 09/14/2024 active ondansetron (PF) (ZOFRAN) injection 4 mg 4 mg, intravenous, Every 6 hours PRN, nausea, vomiting, Starting on Fri09/14/24 at 0948, Recovery & On Unit, To be given first 09/14/2024 active oxyCODONE (ROXICODONE) immediate release tablet 10 mg 10 mg, oral, Every 4 hours PRN, moderate pain, Pain scale 4-6, Starting on Fri09/14/24 at 0948, Recovery & On Unit 09/14/2024 active cefTRIAXone (ROCEPHIN) 2 gram 07/13/2024 4 aborted methocarbamoL (ROBAXIN) 750 mg tablet Take 1 tablet (750 mg total) by mouth every 6 (six) hours as needed. 06/12/2024 5 aborted oxyCODONE (ROXICODONE) 5 mg immediate release tablet Take 1 tablet (5 mg total) by mouth every 4 (four) hours as needed for pain. 06/12/2024 5 aborted traMADoL (ULTRAM) 50 mg tablet Take 1 tablet (50 mg total) by mouth every 6 hours as needed. 05/24/2024 4 aborted amLODIPine (NORVASC) tablet 10 mg TAKE 1 TABLET BY MOUTH EVERY DAY 05/24/2024 active methocarbamol (ROBAXIN) 750 MG tablet Take 1 tablet (750 mg total) by mouth 4 (four) times a day as needed. 05/24/2024 active traMADol (ULTRAM) 50 MG tablet Take 50 mg by mouth every 6 (six) hours as needed. 05/24/2024 active amLODIPine (NORVASC) 10 mg tablet Take 1 tablet (10 mg total) by mouth 1 (one) time each day in the evening. 01/13/2024 active Cobalamin Combinations (Vitamin G61-Qnvff Acid) 500-400 MCG TABS Take by mouth daily. 12/29/2023 active carvedilol (COREG) 6.25 MG tablet Take 1 tablet (6.25 mg total) by mouth 2 (two) times a day with meals. 03/13/2023 active carvediloL (COREG) 6.25 mg tablet Take 1 tablet (6.25 mg total) by mouth 2 (two) times a day with meals. 03/13/2023 active bacitracin 500 UNIT/GM ointment APPLY TOPICALLY TO THE AFFECTED AREA 3 TIMES A DAY FOR 7 DAYS. 03/02/2023 4 active atorvastatin (LIPITOR) 40 MG tablet TAKE 1 TABLET BY MOUTH EVERY DAY 02/13/2023 4 active carvedilol (COREG) 6.25 MG tablet TAKE 1 TABLET BY MOUTH TWICE A DAY WITH MEALS 07/29/2022 active losartan (COZAAR) 100 MG tablet TAKE 1 TABLET BY MOUTH EVERY DAY 04/12/2022 4 active SUMAtriptan (IMITREX) 50 MG tablet TAKE 1 TABLET BY MOUTH NEEDED FOR HEADACHE. MAY REPEAT DOSE AFTER TWO HOURS IF NEEDED. 03/27/2022 3 aborted atorvastatin (LIPITOR) 40 MG tablet Take 1 tablet (40 mg total) by mouth daily. 02/28/2022 3 active carvedilol (COREG) 6.25 MG tablet TAKE 1 TABLET BY MOUTH TWICE A DAY WITH MEALS 09/11/2021 4 active losartan (COZAAR) 100 MG tablet Take 1 tablet (100 mg total) by mouth daily. 02/20/2021 active losartan (COZAAR) 100 MG tablet Take 1 tablet (100 mg total) by mouth daily. 02/20/2021 active atorvastatin (LIPITOR) 40 mg tablet Take 1 tablet (40 mg total) by mouth 1 (one) time each day. 08/09/2020 active atorvastatin (LIPITOR) tablet 40 mg Take 1 tablet (40 mg total) by mouth daily. 08/09/2020 active multivitamin tablet Take 1 tablet by mouth 1 (one) time each day. 4 active naproxen sodium (ANAPROX) 220 mg tablet Take 1 tablet (220 mg total) by mouth. 4 aborted aspirin EC 81 MG tablet Take 1 tablet (81 mg total) by mouth daily. 4 aborted vitamin B-12 (CYANOCOBALAMIN) 100 MCG tablet Take 0.5 tablets (50 mcg total) by mouth daily. 4 active cyanocobalamin 100 MCG tablet Take 0.5 tablets (50 mcg total) by mouth. 4 active cetirizine (ZyrTEC) 10 MG tablet Take 1 tablet (10 mg total) by mouth daily. 3 active acetaminophen (TYLENOL EXTRA STRENGTH) 500 MG tablet Take 1 tablet (500 mg total) by mouth every 6 (six) hours as needed. active acetaminophen (TYLENOL) 500 mg tablet Take 1 tablet (500 mg total) by mouth every 6 hours as needed. active acetaminophen (TYLENOL) 500 MG tablet Take 1 tablet (500 mg total) by mouth 4 times daily (every 6 hours) as needed. active amLODIPine (NORVASC) 10 MG tablet Take 1 tablet (10 mg total) by mouth daily. active bisacodyl (DULCOLAX) 5 MG EC tablet Take 1 tablet (5 mg total) by mouth daily as needed. active bisacodyl (DULCOLAX) 5 MG EC tablet Take 1 tablet (5 mg total) by mouth daily as needed. active bisacodyL (DULCOLAX) 5 mg EC tablet Take 1 tablet (5 mg total) by mouth 1 (one) time each day in the evening. active cyanocobalamin (VITAMIN B-12) 100 mcg tablet 1 (one) time each day. active docusate sodium (COLACE) 100 mg capsule Take 1 capsule (100 mg total) by mouth 1 (one) time each day in the evening. active Docusate Sodium (DSS) 100 MG CAPS Take 100 mg by mouth daily as needed. active fexofenadine (LILIANA) 180 MG tablet Take 1 tablet (180 mg total) by mouth daily. Administer with water only; do not administer with fruit juices. active Melatonin 1 MG CHEW Chew by mouth every evening. active Melatonin 1 MG Chew Tab Chew. active Naproxen Sodium (ALEVE PO) Take by mouth daily as needed. active polyethylene glycol (miraLAx) 17 GM/SCOOP powder Take 17 g by mouth daily. active senna-docusate (PERICOLACE) 8.6-50 MG Take 1 tablet by mouth daily as needed. active Allergies Allergen Reaction Severity Comment Documented Date Source Statu s OTHER FEVER 03/27/2023 [facility] active POLLEN EXTRACT FEVER 05/21/2019 [facility] active POLLEN EXTRACTS STUFFY NOSE 05/21/2019 [facility] N active SEASONAL 05/21/2019 [facility] active Problems Problem Status Onset Date Problem Type Date of Resolution Source Other hyperlipidemia active ProblemAct [facility] Right shoulder pain active ProblemAct [facility] S/P bilateral hip replacements active ProblemAct [facility] Primary hypertension active ProblemAct [facility] Varicose veins active ProblemAct [facility] Head and neck cancer active ProblemAct [facility] Delayed ejaculation active ProblemAct [facility] Enlarged testicle active ProblemAct [facility] Coronary artery disease involving pilot [place] coronary artery of pilot [place] heart without angina pectoris active ProblemAct [facility] Hyponatremia active ProblemAct [facility] CLL (chronic lymphocytic leukemia) active ProblemAct [facility] Infrarenal abdominal aortic aneurysm (AAA) without rupture active ProblemAct [facility] Squamous cell carcinoma in situ active ProblemAct [facility] Hyperlipidemia active ProblemAct [facility] History of actinic keratoses active ProblemAct [facility] Pure hypercholesterolemia active ProblemAct [facility] Skin cancer of face active EncounterDiagnosisAc t CTTHNEMG GI bleed active ProblemAct [facility] Recurrent squamous cell carcinoma of skin active ProblemAct [facility] Presence of right artificial hip joint active EncounterDiagnosisAct [facility] Prosthetic hip infection, initial encounter ([facility] V24) active ProblemAct [facility] Anemia active ProblemAct [facility]RA N Chronic idiopathic constipation active EncounterDiagnosisAct CTTHNE MG Internal hemorrhoid, bleeding active ProblemAct [facility] Coronary artery disease involving pilot [place] coronary artery of [place] heart without angina pectoris active ProblemAct [facility] Mixed hyperlipidemia active EncounterDiagnosisA ct CTTHNEMG CLL (chronic lymphocytic leukemia) ([facility]) active EncounterDiagnosisAct CTT HNEMG Infection of prosthetic hip joint, initial encounter ([facility]) active EncounterDiagnosisAct CTT HNEMG 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 active ProblemAct [facility] Essential hypertension active ProblemAct [facility] Infection of prosthetic joint, subsequent encounter active EncounterDiagnosisAct CT_THS JARVIS Infrarenal abdominal aortic aneurysm (AAA) without rupture active ProblemAct [facility] Coronary artery disease involving pilot [place] coronary artery of [place] heart without angina pectoris active ProblemAct [facility] Head and neck cancer active ProblemAct [facility] S/P bilateral hip replacements active ProblemAct [facility] Squamous cell carcinoma in situ active ProblemAct [facility] Enlarged testicle active ProblemAct [facility] Recurrent squamous cell carcinoma of skin active ProblemAct [facility] Pure hypercholesterolemia active ProblemAct [facility] Delayed ejaculation active ProblemAct [facility] Anemia, unspecified type active EncounterDiagno sisAct CTTHNEMG Varicose veins active ProblemAct [facility] Hyperlipidemia active ProblemAct [facility] Essential hypertension active ProblemAct [facility] Immunizations Vaccine Date Source Lot Number Status Influenza trivalent, 0.5mL, preservative free (Fluarix; FluLaval; Fluzone) ages 6mo and older (Afluria) 3 years and older 07/01/2024 [facility] [id number] completed RSV, bivalent, protein subun it RSVpreF, 0.5mL, Preservative Free (Arexvy) 60yo and older 09/10/2023 [facility] [id number] completed COVID-19 (Pfizer/Comirnaty) 12yo and older 08/06/2023 [facility] [id number] completed Influenza Quadravalent, 0.5m l (Fluad) 65yo and older 08/06/2023 [facility] [id number] completed Influenza trivalent, 0.5mL ( Fluzone High-dose) 65yo and older 08/06/2023 [facility] comple jose Pfizer SARS-CoV-2 COVID-19, mRNA, LNP-S, preservative free 08/06/2023 [facility] completed Influenza Quadravalent, 0.5m l (Fluzone High-dose) 65yo and older 06/27/2022 [facility] [id number] comple jose Covid-19 mRNA Vaccine - Mode rna 0.25 mL Bo[id number] Influenza Quadravalent, 0.5m l (Fluad) 65yo and older 07/11/2021 [facility] [id number] completed Influenza trivalent, 0.5mL ( Fluzone High-dose) 65yo and older 06/26/2021 [facility] comple jose Influenza Quadravalent, 0.5m l (Fluad) 65yo and older 05/24/2020 [facility] [id number] completed Pneumococcal polysaccharide 23 valent (Pneumovax 23) 2yo and older 07/06/2019 [facility] [id number] com pleted Td Tetanus diptheria (Tdvax) 7yo and older 07/06/2019 [facility] [id number] completed Influenza trivalent, 0.5mL ( Fluzone High-dose) 65yo and older 06/02/2019 [facility] [id number] comple jose Influenza trivalent, 0.5mL ( Fluad) 65yo and older 05/21/2018 [facility] [id number] completed Influenza trivalent, 0.5mL ( Fluzone High-dose) 65yo and older 05/22/2017 [facility] [id number] comple jose Influenza trivalent, 0.5mL ( Fluzone High-dose) 65yo and older 06/21/2016 [facility] [id number] comple jose Pneumococcal conjugate 13 va lent (Prevnar 13, PCV13) 2mo and older 11/16/2015 [facility] [id number] complet ed Zoster Live 12/16/2014 [facility] completed Influenza trivalent, with pr eservative (Fluzone; Afluria) 6mo and older 06/09/2014 [facility] completed Hepatitis A-Hepatitis B Adul t (Twinrix) 18yo and older 03/15/2014 [facility] completed Hepatitis A-Hepatitis B Adul t (Twinrix) 18yo and older 01/14/2014 [facility] completed Hepatitis A-Hepatitis B Adul t (Twinrix) 18yo and older 12/08/2013 [facility] completed Influenza trivalent, with pr eservative (Fluzone; Afluria) 6mo and older 06/15/2013 [facility] completed Hepatitis A-Hepatitis B Adul t (Twinrix) 18yo and older 10/09/2012 [facility] completed Influenza trivalent, with pr eservative (Fluzone; Afluria) 6mo and older 07/01/2011 [facility] completed Pneumococcal polysaccharide 23 valent (Pneumovax 23) 2yo and older 04/02/2011 [facility] com pleted Tdap Tetanus diptheria acell ular pertussis (Boostrix; Adacel) 7yo and older 11/28/2008 [facility] completed Td Tetanus diptheria (Tdvax) 7yo and older 01/04/1999 [facility] completed Encounters Encounter Type Encounter Reason Primary Diagnosis Location Date Ambulatory Atherosclerotic hear t disease of pilot [place] coronary artery without angina pectoris Atherosclerotic heart disease of pilot [place] coronary artery without angina pectoris [facility] 04/07/2025 Ambulatory [facility] 03/16/2025 Ambulatory [facility] 12/01/2024 Ambulatory [facility] 10/19/2024 Inpatient Acquired absence of right hip joint Acquired absence of right hip joint [facility] 09/14/2024 Ambulatory Pain in right hip Pain in right hip [facility] 09/06/2024 Ambulatory Essential (primary) hypertension Essential (primary) hypertension [facility] 08/26/2024 Ambulatory Encounter for other preprocedural examination Encounter for other preprocedural examination [facility] 08/25/2024 Ambulatory [facility] 07/14/2024 Inpatient Infection and inflammatory reaction due to other internal joint prosthesis, initial encounter Infection and inflammatory reaction due to other internal joint prosthesis, [place] [facility] [facility] [place] Encounter for preprocedural cardiovascular examination Encounter for preprocedural cardiovascular examination [facility] 05/28/2024 [place] Pain in right hip [place] [facility] [place]ulatory Essential (primary) hypertension Essential (primary) hypertension [facility] 12/26/2023 Ambulatory Essential (prima ry) hypertension [facility] 03/27/2023 Ambulatory Aneurysm of unspecified site [facility] 12/09/2022 Ambulatory Essential (prima ry) hypertension [facility] 10/04/2022 Ambulatory Atherosclerotic heart disease of pilot point coronary artery without angina pectoris [facility] 04/29/2022 Ambulatory Atherosclerotic heart disease of pilot [place] coronary artery without angina pectoris [facility] 04/12/2022 Ambulatory Atherosclerotic heart disease of pilot [place] coronary artery without angina pectoris [facility] 09/11/2021 Care Team Organization Name Specialty Phone Email Start Date End Da te [facility]AD[facility] 04/08/2025 05/06/2025 [facility] AMINATA DOUGHERTY Primary Care 04/07/2025 [facility] Aminata Dougherty MD Primary Care 12/01/2024 [facility] RADHA SEBASTIAN Primary Care 07/16/2024 [facility] RADHA SEBASTIAN [facility] [place] [facility] [facility] [place] KNIGHT Primary [facility] 05/27/2024 [facility] 05/27[place]20[place] [facility] [place]25/2024 03/22/2025 [facility] [employer] NAA ALFORD Primary Care 03/27/2023 05/06/20 [facility] [employer] [facility] Primary Care 03/27/2023 12/26/19 [address] [place] [employer] [facility] Primary Care 04/29/2022 05/06/2025 [facility] Indu Acosta Primary Care 09/11/2021 04/12/2022
--- OUTSIDE RECORDS SUMMARY | 2025-05-10 15:52 | XMS_ITS | Encounter Summary ---
Author Organization [facility] Address [address] [place] [phone] Phone Care Team Providers Care Creative Writing Professor Name Role Phone Aminata Moreno MD Primary Care Provider Encounter Details Date Type Department Care Team (Late st Contact Info) Description 03/31/2024 Procedure Pass [facility], Ct Scan - [address] [address] Social History Tobacco Use Types Packs/Day Years [...] on filedocumented in this encounter Care Teams Creative Writing Professor Relationship Specialty Start Date End Date Aminata Moreno MD [address] [facility] [place] [address] [email or web address] PCP - General 04/08/24 documented as of this encounter Additional Source Comments The information contained in this document represents components of the legal health record. It is not the complete legal health record.[facility]
--- OUTSIDE RECORDS SUMMARY | 2025-05-10 15:52 | XMS_ITS | Encounter Summary ---
Author Organization [facility] Address [address] [place] [address] Care Team Providers Care Roll Scale Man Name Role Phone Suzanna Mcgill Primary Care Provider [phone] Encounter Details Date Type Department Care Team (Late st Contact Info) Description 08/21/2022 myChart Message [facility] Operating Room [address] [place] [id number] Mychart, Generic Provider [address] [place], [place] [id number] Surgical procedure with Dr. Ashu Mason on [...] on filedocumented in this encounter Care Teams Roll Scale Man Relationship Specialty Start Date End Date Suzanna Mcgill [address] [place] [address] PCP - General 08/14/22 documented as of this encounter
--- OUTSIDE RECORDS SUMMARY | 2025-05-10 15:52 | XMS_ITS ---
Author Organization [employer] [facility] [facility] Address [address] [place] [address] Phone Care Team Providers Care Senior Care Assistant Name Role Phone Aminata Moreno MD Primary Care Provider Active Problems Problem Noted Date Diagnosed Date Squamous cell carcinoma of forehead 03/24/2025 Acquired absence of right hi p joint following removal of joint prosthesis with presence of antibiotic-impregnated cement spacer 09/14/2024 Prosthetic hip infection, initial encounter ([facility] V24) 06/08/2024 Internal hemorrhoid, bleeding [...] Onc and Hem/onc. Head and neck cancer ([facility] V24, [facility] V28) 09/03/2022 Assessment & Plan (08/25/2024 12:48 PM EST): CT head and neck performed 08/18/2024: All negative for mass, metastatic disease, lymphadenopathy. Followed closely by radiation oncology. See note below. Infrarenal abdominal aortic aneurysm (AAA) without rupture ([facility] V24) 08/27/2022 Overview (08/17/2024): PET/CT TUMOR IMAGING SKULL BASE TO MID-THIGH ? 08/26/2022 Moderate calcified and sclerosis of the aortoiliac tree with fusiform infrarenal aneurysm measuring 3.1 cm Hyponatremia 11/12/2021 CLL (chronic lymphocytic gricel kemia) ([facility] V24, [facility] V28) 01/13/2019 Overview (05/21/2024): Dr [...] outpatient management. Coronary artery disease invo lving tetlin coronary artery of tetlin heart without angina pectoris 12/05/2017 Assessment & [...] Linked Problems CLL (chronic lymphocytic gricel kemia) ([facility] V24, [facility] V28) Treatment Medications No medications scheduled. Past Plans No past plan information found. Radiation Treatments * No radiation treatments are documented for this patient in [facility]. Treatments may have been administered in another system. Lifetime Dose Tracking * Chemical Lifetime Dose Automatic Entry Manual Entr y Fluoro Time 0.16 minutes 0.16 minutes 0 minutes Air Kerma 15.42 mGy 15.42 mGy 0 mGy
--- OUTSIDE RECORDS SUMMARY | 2025-05-10 15:52 | XMS_ITS | Encounter Summary ---
Author Organization [facility] Address [address] [place] [address] Care Team Providers Care Fisher Weir Name Role Phone Giovanna Thapa MD Unavailable Giovanna Thapa MD Unavailable Aminata Moreno MD Primary Care Provider Anayeli vailable Reason for Visit * Reason Comments Medication Refill Encounter Details Date Type Department Care Team (Late st Contact Info) Description 05/09/2025 [facility]ill [facility] [address] [address] Giovanna Thapa MD [address] [place] [address] Medication Refill Social History Tobacco Use Types [...] Description 10/13/2025 9:40 AM EST Office Visit [facility] [address] [address] Giovanna Thapa MD [address] [place] [address] documented as of this encounter Visit Diagnoses Diagnosis Hypertension, unspecified type documented in this encounter Care Teams Fisher Weir Relationship Specialty Start Date End Date Aminata Moreno MD PCP - General Family Medicine 04/07/25 Giovanna Thapa MD [address] [place] [address] Primary Cooking Show Host Cardiovascular Disease 08/29/21 Giovanna Thapa MD [address] [place] [address] Primary Cooking Show Host Interventional Cardiology 02/23/25 documented as of this encounter
--- OUTSIDE RECORDS SUMMARY | 2025-05-10 15:52 | XMS_ITS | Encounter Summary ---
Author Organization [facility] Address [address] [place] [address] Care Team Providers Care Diving Supervisor Name Role Phone Ananda Whiting MD Primary Care Provider Encounter Details Date Type Department Care Team Description 05/07/2023 Social Work [facility] Oncology Services [address] [place] [address] Cleo Campbell, [facility] Social History Tobacco Use Types Packs/Day Years [...] on filedocumented in this encounter Care Teams Diving Supervisor Relationship Specialty Start Date End Date Ananad Whiting MD [address] [place] [address] [address] [place] [address] PCP - General Geriatric Medicine 06/03/24 documented as of this encounter
== END 2025-05-10 15:04 | disposition home or self-care (01) ==
LOC: HO.HGS 14:39
PROVIDERS: PCP Family Medicine; Visit Provider Surgery
DX: Z98.890 Other specified postprocedural states (principal)
CPT/HCPCS: 99024

== ENCOUNTER → 2025-05-10 14:38 | Outpatient (BNVA) | payer MEDICARE, SELFPAY | PROVIDERS: PCP Family Medicine; Visit Provider Surgery | DX: Z98.890 Other specified postprocedural states (principal) | CPT/HCPCS: 99212 ==

== ENCOUNTER 2025-06-14 11:00 | Outpatient (AMB) | payer MEDICARE, SELFPAY ==
--- NOTE | 2025-06-14 10:59 | A.OFFVIS_ITS ---
Vital Signs 06/14/25 11:12 Height 6 ft 2 in Weight 189 lb BMI 24.3 BP 116/58 L Blood Pressure Location Lt brachial Position Sitting Pulse 66 Intake Visit Reasons: one month S/P closure of colostomy Intake Note: Patient is seen in office for one month follow up visit, post closure of colostomy. Pt c/o: admits to some blood in the stool and when cleaning for the past week, does have normal bm up to 3 times a day, denies constipation or straining Field Merchandiser Required: No Accompanied by: Self / Same As Patient Allergies No Known Allergies Allergy (Verified 06/14/25 11:12) Medication List - Last Reconciled 06/14/25 by Paul Bray MD acetaminophen (Tylenol) 650 mg PO Q6H PRN amlodipine 10 mg PO QAM atorvastatin 40 mg PO BEDTIME bisacodyl (Dulcolax (bisacodyl)) 5 mg PO BEDTIME PRN carvedilol 6.25 mg PO BID cefadroxil 500 mg PO BID cetirizine 10 mg PO BEDTIME PRN cyanocobalamin (vitamin B-12) 1,000 mcg PO QAM docusate sodium (Colace) 100 mg PO BID ferrous sulfate (iron) 325 mg PO QAM fexofenadine 180 mg PO DAILY PRN losartan 100 mg PO QAM methocarbamol 750 mg PO Q8H PRN multivitamin 1 tab PO DAILY oxycodone 5 mg PO Q6H PRN sennosides (senna) 8.6 mg PO DAILY PRN HPI Comments Details: Patient returns 1 month following closure of colostomy following Amarjit procedure for sigmoid volvulus. He feels well reports several bowel movements daily. His appetite is improving. [facility] Medical History Coronary artery disease HTN (hypertension) Chronic anemia Basal cell carcinoma Squamous cell carcinoma of face CLL (chronic lymphocytic leukemia) HLD (hyperlipidemia) Surgical History H/O colonoscopy Hx of cardiac catheterization Status post Mohs surgery for basal cell carcinoma Hx of colectomy (01/09/25) H/O neck surgery History of total right hip replacement History of total left hip replacement History of facial surgery Social History Household Members: Spouse Housing: Condominium Are you a primary caregivers non medical to a significant other at home: No Do you presently have visiting nurse or other home services: No Patient Tobacco Use Status: Never used Tobacco Substance Use Type: Marijuana Advance Directives Date on File: 12/24/24 service: No Physical Exam Const General: comfortable Nutritional Appearance: well nourished Orientation/consciousness: patient oriented x3 Limitations: ambulation with cane Resp Effort & Inspection: normal respiratory effort GI Other: Soft nondistended, abdominal incisions are clean and intact without redness or discharge. Wounds are well healed with no evidence of hernia or infection. Neuro General: patient oriented x3 Extrem Other: No edema Assessment & Plan Assessment & Plan (1) History of colostomy reversal: Code(s): Z98.890 - Other specified postprocedural states Category: Surgical Plan 75-year-old male patient returning following closure of colostomy on 04/27/2025. His wounds are healing nicely and he is tolerating his diet well. He may resume normal activity without restrictions and should follow up as needed. Coding Level of Care Code Global (17682) Diagnoses History of colostomy reversal Z98.890
[2025-06-14 11:12] VITALS: BP 116/58; PULSE 66; BMI 24.3
--- OUTSIDE RECORDS SUMMARY | 2025-06-14 13:39 | XMS_ITS | Clinical Summary ---
Author Organization [facility] Address [address] [place] [address] Care Team Providers Care Schedule Checker Name Role Phone Ananda Whiting MD Primary [...] as needed. 0 Active Cobalamin Combinations (Vitamin A05-Cbcjy Acid) 500-400 MCG TABS Take by mouth [...] skin 2022 Coronary artery disease invo lving ottawa coronary artery of [place]tawa heart without angina pectoris 12/05/2017 Essential hypertension [...] this topic Medical Devices Implanted Type Area Platform Man Device Identifier Shelf Expiration Date Model / Serial / Lot Cement Bone Surg Simplex Radiopq [facility] 0235-2-767-114 092 - [id number] Implanted:Qty: 1 on 06/08/2024 by Babak Carrasquillo MD at [facility] Right: Hip [employer] [id number] 05/08/2026 6191-1-010 / / [id number] Impl Set Bead 2.0mm Vit Brandt [facility] 2274-4-317-114 128 - [id number] Implanted:Qty: 1 on 06/08/2024 by Babak Carrasquillo MD at [facility] Right: Hip [employer] [id number] 01/19/2029 6704-0-520 / / [id number] Impl Set Bead 2.0mm Vit Brandt [facility] 0982-5-813-114 128 - [id number] Implanted:Qty: 1 on 06/08/2024 by Babak Carrasquillo MD at [facility] Right: Hip [employer] [id number] 01/19/2029 6704-0-520 / / [id number] Impl Set Bead 2.0mm Vit Brandt [facility] 9990-5-730-114 128 - [id number] Implanted:Qty: 1 on 06/08/2024 by Babak Carrasquillo MD at [facility] Right: Hip [employer] [id number] 01/09/2029 6704-0-520 / / [id number] Impl Set Bead 2.0mm Vit Brandt [employer] 6032-0-156-114 128 - [id number] Implanted:Qty: 1 on 06/08/2024 by Babak Carrasquillo MD at [facility] Right: Hip [employer] [id number] 01/09/2029 6704-0-520 / / [id number] Impl Set Bead 2.0mm Vit Brandt [employer] 9240-3-945-114 128 - [id number] Implanted:Qty: 1 on 06/08/2024 by Babak Carrasquillo MD at [facility] Right: Hip [employer] [id number] 10/06/2028 6704-0-520 / / [id number] Cable Slv Set D-M Bead 2.0mm Vit Rishi Theodorey-How 8829-4-863-114 159 - [id number] Implanted:Qty: 1 on 06/08/2024 by Babak Carrasquillo MD at [facility] Right: Hip [employer] [id number] 11/17/2028 6704-0-510 / / [id number] Cable Slv Set D-M Bead 2.0mm Vit Med Stry-Howm 9984-8-535-114 159 - [id number] Implanted:Qty: 1 on 06/08/2024 by Babak Carrasquillo MD at [facility] Right: Hip [employer] [id number] 11/17/2028 6704-0-510 / / [id number] Cable Slv Set D-M Bead 2.0mm Vit Med Stry-How 4108-8-696-114 159 - [id number] Implanted:Qty: 1 on 06/08/2024 by Babak Carrasquillo MD at [facility] Right: Hip [employer] [id number] 11/17/2028 6704-0-510 / / [id number] Cable Slv Set D-M Bead 2.0mm Vit Med Stry-How 8264-4-890-114 159 - [id number] Implanted:Qty: 1 on 06/08/2024 by Babak Carrasquillo MD at [facility] Right: Hip [employer] [id number] 11/17/2028 6704-0-510 / / [id number] Plate Jd Edwards Consultant Troch Lg 210mm Vitallium W [address]-[facility] 0300-6-562-363 390 - [id number] Implanted:Qty: 1 on 06/08/2024 by Babak Carrasquillo MD at [facility] Right: Hip [employer] [id number] 02/19/2028 6704-3-093 / / [id number] Cement Bone Surg Simplex Radiopq [facility] 1379-9-142-114 092 - [id number] Implanted:Qty: 1 on 06/08/2024 by Babak Carrasquillo MD at [facility] Right: Hip [employer] [id number] 05/08/2026 6191-1-010 / / [id number] Explanted Type Area Platform Man Device Identifier Shelf Expiration Date Model / Serial / Lot Femoral Head Explanted:Qty: 1 on 06/08/2024 by Babak Carrasquillo MD at [facility] Right: Hip Femoral Stem Explanted:Qty: 1 on 06/08/2024 at [facility] Right: Hip Acetabular Liner Explanted:Qty: 1 on 06/08/2024 at [facility] Right: Hip Screw Explanted:Qty: 1 on 06/08/2024 at [facility] Right: Hip Screw Explanted:Qty: 1 on 06/08/2024 at [facility] Right: Hip Screw Explanted:Qty: 1 on 06/08/2024 at [facility] Right: Hip Acetabular Shell Explanted:Qty: 1 on 06/08/2024 at [facility] Right: Hip Advance Directives For more information, please contact: [phone] Latest Code Status on File Code Status [...] way: discussion with patient . Care Teams Schedule Checker Relationship Specialty Start Date End Date Ananda Whiting MD [address] [facility] [address] [place] [phone] PCP - General Geriatric Medicine 06/03/24
--- OUTSIDE RECORDS SUMMARY | 2025-06-14 13:39 | XMS_ITS | Encounter Summary ---
Author Organization [facility] Address [address] [place] [address] Care Team Providers Care Compounder Helper Name Role Phone Suzanna Mcgill Primary Care Provider [phone] Encounter Details Date Type Department Care Team (Late st Contact Info) Description 08/26/2022 Lab Requisition [facility] Three Lab [address] [place] [address] Ashu Mason MD [address] [place] [address] [phone] Social History Tobacco Use Types Packs/Day Years [...] of this encounter Procedures * Due to [place] law, this organization might not be sharing negative HIV tests. Procedure Name Priority Date/Time Associated Diagnosis Comments NON-GYNECOLOGIC CYTOLOGY 08/26/2022 8:00 AM EST documented in this encounter Results * Due to [place] law, this organization might not be sharing negative HIV tests. * (ABNORMAL) Non-Gynecologic Cytology (08/26/2022 8:00 AM EST) Final Diagnosis Specimen 1: Cheek, Right; Incoming consult, FNA Positive for malignant cells. Squamous cell carcinoma, keratinizing. See note. Note: The case was labelled as Right cheek, FNA, NOS , part 1 and part 2. Both part 1 and part 2 show squamous cell carcinoma. [facility] 08/27/2022 10:43 AM EST [facility] [employer] [facility] at 1043 EST Clinical History SCC Cheek [facility] MANUAL 08/27/2022 10:43 AM EST [employer] Gross Description Specimen 1: Received from [facility] are 6 glass slides labeled [id number] corresponding to a right cheek FNA obtained on 08/12/2022, according to the accompanying cytology report bearing the patient's name and date of . [facility] MANUAL 08/27/2022 10:43 AM EST [employer] [facility] Embedded Images [facility] 08/27/2022 10:43 AM EST [employer] [employer] [facility] LAB[facility] Resulting Agency Case was signed out at [facility], Department of Pathology, [facility] [id number] [facility] MANUAL 08/27/2022 10:43 AM EST [employer] [facility] [employer] [facility] Abnormal Yes(A) (none) [facility] MANUAL 08/27/2022 10:43 AM EST [employer] Report Header Non-Gynecologic Cytology Report Case: [id number] Authorizing Provider: Ashu Mason MD Collected: 08/26/2022 0800 Ordering Location: [facility] Received: 08/26/2022 1546 [employer] [facility] Three [facility] Pathologist: Rigoberto Brito MD Specimen: Cheek, Right, Incoming consult, FNA 08/27/2022 10:43 AM EST [employer] [facility] Structure of right cheek / Unknown 08/26/2022 8:00 AM EST 08/26/2022 3:46 PM EST us Ashu Mason MD LAB PATHOLOGY/CYTOLOGY ORDER FACUNDO Final Result [facility] [address] [place] [address], documented in this encounter Visit Diagnoses Not on filedocumented in this encounter Care Teams Compounder Helper Relationship Specialty Start Date End Date Suzanna Mcgill [address] [place] [address] PCP - General 08/14/22 documented as of this encounter
--- OUTSIDE RECORDS SUMMARY | 2025-06-14 13:39 | XMS_ITS | Encounter Summary ---
Author Organization [facility] Address [address] [facility] [address] [place] [address] Phone Care Team Providers Care Print Line Inspector Name Role Phone Aminata Moreno MD Primary Care Provider Encounter Details Date Type Department Care Team (Late st Contact Info) Description 03/31/2024 Procedure Pass [facility], Ct Scan - [address] [address] Social History Tobacco Use Types Packs/Day Years [...] on filedocumented in this encounter Care Teams Print Line Inspector Relationship Specialty Start Date End Date Aminata Moreno MD [address] [facility] [place] [address] [email or web address] PCP - General 04/08/24 documented as of this encounter Additional Source Comments The information contained in this document represents components of the legal health record. It is not the complete legal health record.[facility]
--- OUTSIDE RECORDS SUMMARY | 2025-06-14 13:39 | XMS_ITS | Encounter Summary ---
Author Organization [facility] Address [address] [facility] [address] [place] [address] Phone Care Team Providers Care Clinical Abstractor Name Role Phone Aminata Moreno MD Primary Care Provider Encounter Details Date Type Department Care Team (Late st Contact Info) Description 03/31/2024 Procedure Pass [facility], Ct Scan - [address] [address] Social History Tobacco Use Types Packs/Day Years [...] on filedocumented in this encounter Care Teams Clinical Abstractor Relationship Specialty Start Date End Date Aminata Moreno MD [address] [facility] [place] [address] [email or web address] PCP - General 04/08/24 documented as of this encounter Additional Source Comments The information contained in this document represents components of the legal health record. It is not the complete legal health record.[facility]
--- OUTSIDE RECORDS SUMMARY | 2025-06-14 13:39 | XMS_ITS ---
Author Organization [facility] Address [address] [place] [address] Care Team Providers Care Computer Engineering Technologist Name Role Phone Ananda Whiting MD Primary [...] Medications Discontinue Reason Plan Provider [facility] OP CISPLATIN 100MG/M2 (FOR USE WITH [...] treatments are documented for this patient in [facility]. Treatments may have been administered in another system.
--- OUTSIDE RECORDS SUMMARY | 2025-06-14 13:39 | XMS_ITS | Encounter Summary ---
Author Organization [facility] Address [address] [place] [address] Care Team Providers Care Biofuels Manager Name Role Phone Suzanna Mcgill Primary Care Provider [phone] Encounter Details Date Type Department Care Team (Late st Contact Info) Description 08/21/2022 myChart Message [facility] Operating Room [address] [place] [address] Mychart, Generic Provider [address] [place], [place] [id number] Surgical procedure with Dr. Ashu Mason on [...] on filedocumented in this encounter Care Teams Biofuels Manager Relationship Specialty Start Date End Date Suzanna Mcgill [address] [place] [address] PCP - General 08/14/22 documented as of this encounter
--- OUTSIDE RECORDS SUMMARY | 2025-06-14 13:39 | XMS_ITS | Encounter Summary ---
Author Organization [facility] Address [address] [place] [address] Care Team Providers Care Graphics Editor Name Role Phone Aminata Moreno MD Primary Care Provider Encounter Details Date Type Department Care Team (Late st Contact Info) Description 07/10/2024 Lab Requisition [facility] - Main Lab [address] [place] [phone] Ally Ortega MD [address] [place] [address] Streptococcal infection, unspecified site Social History Tobacco [...] Care Team (Late st Contact Info) Description 06/23/2025 11:[address] [facility] Radiation Oncology [address] [place] [phone] 06/23/2025 11:[address] [facility] Radiation Oncology [address] [place] [phone] Angel Huizar MD [address] [place] [address] 06/24/2025 10:[address] [facility]iation Oncology [address] [place] [phone] 06/27/2025 10:[address] [facility]cology [address] [place] [phone] 06/28/2025 10:[address] [facility]iation Oncology [address] [place] [phone] 06/29/2025 10:[address] [facility]iation [facility]cology [address] [place] [phone] 06/30/2025 10:[address] [facility]iation Oncology [address] [place] [phone] 07/01/2025 10:[address] [facility] Oncology [address] [place] [phone] 07/04/2025 10:[address] [facility]cology [address] [place] [phone] 07/05/2025 10:[address] [facility]cology [address] [place] [phone] 07/06/2025 10:[address] [facility]iation [facility]cology [address] [place] [phone] 08/15/2025 11:15 AM EST Office Visit [facility] Hematology Oncology [address] [place] [phone] Lamar Cotton MD [address] [place] [address] 09/14/2025 11:00 AM EST Telemedicine Infectious Disease - [place] [address] [place] [address] Neelima Peoples MD [address] [place] [address] 10/26/2025 11:00 AM EST Office Visit Adult Medicine - [place] [address] [place] [phone] Henrique Gomes PA [address] [place] [address] documented as of this encounter Visit Diagnoses Diagnosis Streptococcal infection, unspecified site documented in this encounter Additional Health Concerns Infection Onset Date Last Indicated Resolved Time Tuberculosis Rule-Out 09/06/2024 09/06/20242024 8:27 AM EST documented as of this encounter Care Teams Graphics Editor Relationship Specialty Start Date End Date Aminata Moreno MD [address] [place] [address] PCP - General Internal Medicine 10/21/24 documented as of this encounter
--- OUTSIDE RECORDS SUMMARY | 2025-06-14 13:39 | XMS_ITS | Encounter Summary ---
Author Organization [facility] Address [address] [place] [address] Care Team Providers Care Speaker Mounter Name Role Phone Indu Acosta MD Primary Care Provider Giovanna Thapa MD Unavailable Suzanna Mcgill DO Primary Care Provider [phone] Giovanna Thapa MD Unavailable Aminata Moreno MD Primary Care Provider Anayeli vailable Reason for Visit * Reason Comments Medication Refill Encounter Details Date Type Department Care Team (Late st Contact Info) Description 03/01/2022 Refill [facility] [address] [phone] Olivia Zavaleta, PA [address] [place] [address] Medication Refill Social History Tobacco Use Types [...] Description 10/13/2025 9:40 AM EST Office Visit [facility] [place] [address] [place] [phone] Giovanna Thapa MD [address] [place] [address] 10[address] [place] [address] documented as of this encounter Visit Diagnoses Diagnosis Hypertension, unspecified type documented in this encounter Care Teams Speaker Mounter Relationship Specialty Start Date End Date Indu Acosta MD [address] [place] [address] PCP - General 08/29/21 03/26/23 Suzanna Mcgill DO [address] [place] [address] PCP - General Family Medicine 03/27/23 04/06/25 Aminata Moreno MD PCP - General Family Medicine 04/07/25 Giovanna Thapa MD [address] [place] [address] Primary Security Patrol Driver Cardiovascular Disease 08/29/21 Giovanna Thapa MD [address] [place] [address] Primary Security Patrol Driver Interventional Cardiology 02/23/25 documented as of this encounter
--- OUTSIDE RECORDS SUMMARY | 2025-06-14 13:39 | XMS_ITS | Clinical Summary ---
Author Organization [facility] Address [address] [place] [address] Phone Care Team Providers Care Circular Distributor Name Role Phone Aminata Moreno MD Primary [...] file Medical Devices Not on file Insurance [facility] MEDICARE REPLACEMENT [place] [id number] [facility] MEDICARE REPLACEMENT [facility] MEDICARE REPLACEMENT Care Teams Circular Distributor Relationship Specialty Start Date End Date Aminata Moreno MD [address] [place] [address] [email or web address] PCP - General 04/08/24 Additional Source Comments The information contained in this document represents components of the legal health record. It is not the complete legal health record.[facility]
--- OUTSIDE RECORDS SUMMARY | 2025-06-14 13:39 | XMS_ITS | Clinical Summary ---
Author Organization [facility] Address [address] [place] [address] Care Team Providers Care Public Records Researcher Name Role Phone Giovanna Thapa MD Unavailable [...] 4 tablets. Active losartan (COZAAR) 100 MG tabletIndications:Prima ry hypertension TAKE 1 TABLET BY MOUTH EVERY DAY 90 tablet 3 05/17/20 24 Active traMADol (ULTRAM) 50 MG tablet Take 1 tablet (50 mg total) by mouth 4 times daily (every 6 hours) as needed. 05/24/20 24 Active senna-docusate (SENNA-S) 8.6-50 MG Take 1 tablet by mouth daily. Active Cobalamin Combinations (Vitamin W23-Ltwzp Acid) 500-400 MCG Tab Take by mouth daily. 12/29/19 24 Active acetaminophen (TYLENOL) 500 MG tablet Take 1 tablet (500 mg total) by mouth 4 times daily (every 6 hours) as needed. Active atorvastatin (LIPITOR) 40 MG tabletIndications:Pure hypercholesterolemia TAKE 1 TABLET BY MOUTH EVERY DAY 90 tablet 3 02/22/20 25 Active cefadroxil (DURICEF) 500 mg capsule Take 1 capsule (500 mg total) by mouth 2 (two) times a day. 12/02/19 25 Active carvedilol (COREG) 6.25 MG tabletIndications:Hyper tension, unspecified type TAKE 1 TABLET BY MOUTH TWICE A DAY WITH FOOD 180 tablet 3 05/10/20 25 Active Active Problems Problem Noted Date Diagnosed [...] hypertension 09/13/2015 Coronary artery disease invo lving [place] coronary artery of [place] heart without angina pectoris 09/13/2015 03/27/2023 Overview (03/27/2023): Stenting x 2 in [address] Thapa in [place], [place] Stenting x 2 in [address] Follow[address] with Dr[address] Thapa in [place] Other hyperlipidemia 09/13/2015 03/27/2023 Resolved Problems Problem Noted Date Diagnosed Date Resolved Date Aneurysm 10/04/2022 04/07/2025 Coronary artery disease invo lving [place] coronary artery of [place] heart without angina pectoris 09/13/2015 04/07/2025 Overview (09/05/2021): Stenting x 2 in [address] Thapa in [place], [place] Encounters Date Type Department Care Team Description 05/09/2025 Refill [facility] Vascular [address] [phone] Giovanna Thapa MD Medication Refill 04/07/2025 9:20 AM EDT Office Visit [facility] V[facility] [address] [phone] Giovanna Thapa MD Coronary artery disease involving [place] coronary artery of [place] heart without angina pectoris (Primary Dx); Primary hypertension ; Pure hypercholesterolemia 04/07/2025 Travel from Last 3 Months Immunizations Immunization Administration [...] Description 10/13/2025 9:40 AM EST Office Visit [address] [phone] Giovanna Thapa MD [address] [place] [address] [address] Health Maintenance Due Date Last Done Comments [...] 9:24 AM EDT Coronary artery disease involving [place] coronary artery of [place] heart without angina pectoris Primary hypertension Pure hypercholesterolemia from Last 3 Months Results * ECG 12 lead (04/07/2025 9:24 AM EDT) Ventricular rate 62 BPM EKG [facility] Atrial rate 62 BPM EKG [facility] P-R interval 238 ms EKG [facility] QRS duration 106 ms EKG [facility] Q-T interval 456 ms EKG [facility] QTC calculation (Bazett) 462 ms EKG [facility] P axis 99 degrees EKG [facility] R axis -48 degrees EKG [facility] T axis 47 degrees EKG [facility] 04/07/2025 9:24 AM EDT Narrative EKG [facility] - 04/07/2025 9:31 AM EDT Sinus [...] Thapa Jawad ([id number]) on 04/07/2025 9:31:48 AM us Giovanna Thapa MD ECG ORDERABLES Final Result EKG [facility] from Last 3 Months Insurance MEDICARE PART A & B Care Teams Public Records Researcher Relationship Specialty Start Date End Date Aminata Moreno MD PCP - General Family Medicine 04/07/25 Giovanna Thapa MD [address] [place] [address] Primary Fabrication Welder Cardiovascular Disease 08/29/21 Giovanna Thapa MD [address] [place] [address] Primary Fabrication Welder Interventional Cardiology 02/23/25
--- OUTSIDE RECORDS SUMMARY | 2025-06-14 13:39 | XMS_ITS | Encounter Summary ---
Author Organization [facility] Address [address] [place] [address] Care Team Providers Care Digital Advertising Analyst Name Role Phone Giovanna Thapa MD Unavailable Suzanna Mcgill DO Primary Care Provider Giovanna Thapa MD Unavailable Aminata Moreno MD Primary Care Provider Anayeli vailable Reason for Visit * Reason Comments Medication Refill Encounter Details Date Type Department Care Team (Late st Contact Info) Description 07/05/2023 Refill [facility] 2[facility] Vascular [address] [phone] Mary Bella, WASHER CARCASS [address] [place] [address] Medication Refill Social History Tobacco Use Types [...] Description 10/13/2025 9:40 AM EST Office Visit [facility] 2[facility] V[facility] [address] [phone] Giovanna Thapa MD [address] [place] [address] documented as of this encounter Visit Diagnoses Diagnosis Hypertension, unspecified type documented in this encounter Care Teams Digital Advertising Analyst Relationship Specialty Start Date End Date Suzanna Mcgill DO [address] [place] [address] PCP - General Family Medicine 03/27/23 04/06/25 Aminata Moreno MD PCP - General Family Medicine 04/07/25 Giovanna Thapa MD [address] [place] [address] Primary Financial Adviser Cardiovascular Disease 08/29/21 Giovanna Thapa MD [address] [place] [address] Primary Financial Adviser Interventional Cardiology 02/23/25 documented as of this encounter
--- OUTSIDE RECORDS SUMMARY | 2025-06-14 13:40 | XMS_ITS ---
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 Head and neck cancer ([facility] V24, [facility] V28) 09/03/2022 Assessment & Plan (08/25/2024 12:48 PM EST): CT head and neck performed 08/18/2024: All negative for mass, metastatic disease, lymphadenopathy. Followed closely by radiation oncology. See note below. Infrarenal abdominal aortic aneurysm (AAA) without rupture ([facility] V24) 08/27/2022 Overview (08/17/2024): PET/CT TUMOR IMAGING SKULL BASE TO MID-THIGH ? 08/26/2022 Moderate calcified and sclerosis of the aortoiliac tree with fusiform infrarenal aneurysm measuring 3.1 cm Hyponatremia 11/12/2021 CLL (chronic lymphocytic gricel kemia) ([facility] V24, [facility] V28) 01/13/2019 Overview (05/21/2024): Dr Cotton Assessment [...] outpatient management. Coronary artery disease invo lving [place] coronary artery of [place] heart without angina pectoris 12/05/2017 Assessment & [...] + screen AM of surgery ordered. Current Treatment and Therapy Plans OUTPATIENT TRANSFUSION (PRN)* Plan Start Date:10/20/2024 Plan Provider:Lamar Cotton MD Linked Problems CLL (chronic lymphocytic gricel kemia) ([facility] V24, [facility] V28) Treatment Medications No medications scheduled. Past Treatment and Therapy Plans No past plan information found. Lifetime Dose Tracking * Chemical Lifetime Dose Automatic Entry Manual Entr y Fluoro Time 0.16 minutes 0.16 minutes 0 minutes Air Kerma 15.42 mGy 15.42 mGy 0 mGy
--- OUTSIDE RECORDS SUMMARY | 2025-06-14 13:40 | XMS_ITS | Encounter Summary ---
Author Organization [facility] Address [address] [place] [address] [place] [phone] Phone Care Team Providers Care Well Shooter Name Role Phone Aminata Moreno MD Primary Care Provider Reason for Referral * MRI/CAT Scan - Closed Specialty Diagnoses / Procedures Referred By Contac t Referred To Contact Radiology Diagnoses Squamous cell carcinoma of skin of other parts of face Procedures CT Neck Sandra Choe MD Phone: tel: fax: mailto: Referral ID Status Reason Start Date Expiration Date Visits Re quested Visits Authorized [id number] Closed 03/31/2024 03/31/2025 1 1 * MRI/CAT Scan - Closed Specialty Diagnoses / Procedures Referred By Erica kaye Referred To Contact Radiology Diagnoses Squamous cell carcinoma of skin of other parts of face Procedures CT Chest Sandra Choe MD Phone: tel: fax: mailto: Referral ID Status Reason Start Date Expiration Date Visits Re quested Visits Authorized [id number] Closed 03/31/2024 03/31/2025 1 1 Encounter Details Date Type Department Care Team (Late st Contact Info) Description 03/31/2024 Transcribe Orders [facility] [address] [place] [address] Sandra Choe MD [address] [place] [id number] [email or web address] Squamous cell carcinoma of skin [...] clinician's provided indication for this examination in [facility]:Outside Radiology Order; squamous cell carcinoma of [...] face documented in this encounter Care Teams Well Shooter Relationship Specialty Start Date End Date Aminata Moreno MD [address] [place] [phone] [email or web address] PCP - General 04/08/24 documented as of this encounter Additional Source Comments The information contained in this document represents components of the legal health record. It is not the complete legal health record.[facility]
--- OUTSIDE RECORDS SUMMARY | 2025-06-14 13:40 | XMS_ITS | Encounter Summary ---
Author Organization [facility] Address [address] [place] [address] Care Team Providers Care Belting Inspector Name Role Phone Suzanna Mcgill Primary Care Provider [phone] Encounter Details Date Type Department Care Team (Late st Contact Info) Description 09/25/2023 [employer] Message [facility] [address] [place] [phone] Mychart, Generic Provider [address] [place], [place] [phone] Occuplastics referral Social History Tobacco Use Types [...] on filedocumented in this encounter Care Teams Belting Inspector Relationship Specialty Start Date End Date Suzanna Mcgill [address] [place] [address] PCP - General 08/14/22 documented as of this encounter
--- OUTSIDE RECORDS SUMMARY | 2025-06-14 13:40 | XMS_ITS | Clinical Summary ---
Author Organization [facility] Address [address] [place] [address] Care Team Providers Care Radial Router Operator Name Role Phone Nano Betsymaverick Primary Care Provider [phone] Allergies Active Allergy Reactions Criticality Noted Date [...] tea prior to administrati on. Active mv-mn/C/glutamin /lysin/[id number] (A[place], ASCORBATE SODIUM, ORAL) Take by mouth. [...] veins 11/16/2015 Coronary artery disease invo lving [place] coronary artery of [place] heart without angina pectoris 09/13/2015 Overview (08/26/2022): Stenting x 2 in [address] Follow[address] Thapa in [place], [place] Stenting x 2 in 2004. Follows with Dr. Thapa in [place], [place] Hyperlipidemia 09/13/2015 Primary hypertension 09/13/2015 Immunizations Immunization Administration Dates Next Due Hepatitis A and Hepatitis B Vaccine 07/0 04/2014,01/14/2014,12/08/2013,10/09 Influenza, High Dose Seasona l, Preservative Free (FLUZONE HIGH-DOSE) 06/26/2021,06/02/2019,05/22/2017,06/21 Influenza, High Dose Seasona l, Quadrivalent PF 06/27/2022 Influenza, Injectable, Quadr ivalent Preservative Free 07/11/2021,05/24/2020 Influenza, Trivalent, Adjuva nted, PF (FLUAD) 05/21/2018 Influenza, Trivalent, MDV, Injectable 06/09/2014 ,06/15/2013,07/01/2011 [...] Additional history exists Alcohol/Substance Use Screening 09/08/2024 3 Depression Screening and Follow-Up 09/08/2024 Health Care Proxy Review 09/08/2024 Social Drivers of Health Ally ual Screening 09/08/2024 COVID-19 Vaccine (5 - 2024-2 [...] Completed 09/10/2023 Medical Devices Implanted Type Area Chemistry Manager Device Identifier Shelf Expiration Date Model / Serial / Lot Drill Bit Twist [employer] Standard Stainless Steel Sterile [id number] - [id number] Implanted:Qty: 1 on 09/03/2022 by Ashu Mason MD at [facility] [employer] [id number] / / Procedures * Due to [facility] law, this organization might not be sharing negative HIV tests. Procedure Name Priority Date/Time Associated Diagnosis Comments BASIC METABOLIC PANEL Routine 03/01/2023 3:38 AM EDT from Last 3 Months or Most Recently Relevant to Health Maintenance Results * Due to [place] [employer] law, this organization might not be sharing negative HIV tests. * (ABNORMAL) Basic Metabolic Panel (03/01/2023 3:38 AM EDT) NA 132(L) 135 - 145 mmol/L 03/01/2023 4:37 AM EDT [facility] K 4.5 3.5 - 5.3 mmol/L 03/01/2023 4:37 AM EDT [facility] Cl 99 97 - 110 mmol/L 03/01/2023 4:37 AM EDT [facility] CO2 26 24 - 32 mmol/L 03/01/2023 4:37 AM EDT [facility] BUN 9 7 - 23 mg/dL 03/01/2023 4:37 AM EDT [facility] Creatinine 0.60 0.60 - 1.30 mg/dL 03/01/2023 4:37 AM EDT [facility] Glucose 149(H) 70 - 99 mg/dL 03/01/2023 4:37 AM EDT [facility] Calcium 8.7 8.7 - 10.7 mg/dL 03/01/2023 4:37 AM EDT [facility] Anion Gap 7 5 - 15 03/01/2023 4:37 AM EDT [facility] eGFR >90 >=60 mL/min/1. 73m2 03/01/2023 4:37 AM EDT [facility] Comment:The estimated glomer ular [...] MD LAB BLOOD ORDERABLES Final R esult [facility] [address] [place] [address], [place] from Last 3 Months or Most Recently Relevant to Health Maintenance Insurance [facility] MCR REPLACE AARP Advance Directives Documents on File Type Date Recorded Patient Data Input Clerk Expl anation Health Care Proxy 08/26/2022 12:51 [...] 6:07 AM 09/03/2022 4:22 PM Care Teams Radial Router Operator Relationship Specialty Start Date End Date Suzanna Mcgill [address] [place] [address] PCP - General 08/14/22
--- OUTSIDE RECORDS SUMMARY | 2025-06-14 13:40 | XMS_ITS | Encounter Summary ---
Author Organization [facility] Address [address] [place] [address] Care Team Providers Care Pulp Operator Name Role Phone Ananda Whiting MD Primary Care Provider Encounter Details Date Type Department Care Team Description 05/07/2023 Social Work [facility] [address] [place] [address] Cleo Campbell, [facility] Social History Tobacco Use Types Packs/Day Years [...] on filedocumented in this encounter Care Teams Pulp Operator Relationship Specialty Start Date End Date Ananda Whiting MD [address] [place] [address] [address] [place] [address] PCP - General Geriatric Medicine 06/03/24 documented as of this encounter
--- OUTSIDE RECORDS SUMMARY | 2025-06-14 13:40 | XMS_ITS | Clinical Summary ---
Author Organization [facility] Address [address] [place] [address] Phone Care Team Providers Care Real Estate Teacher Name Role Phone Aminata Moreno MD Primary [...] with meals. 60 capsule 11 5 Active Additional Information Patient not taking.Reported on 05/26/2025 amLODIPine (NORVASC) 10 mg tablet Take 1 tablet (10 mg total) by mouth 1 (one) time each day. 30 tablet 11 5 01/26/20 26 Active fluorouraciL (FLUOROPLEX) 1 % cream Apply 1 Application topically 2 (two) times a day. X 10 days Active ferrous sulfate 325 mg (65 mg elemental iron) tablet Take 15 mg by mouth 1 (one) time each day with breakfast. 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 Head and neck cancer ([facility] V24, [facility] V28) 09/03/2022 Assessment & Plan (08/25/2024 12:48 PM EST): CT head and neck performed 08/18/2024: All negative for mass, metastatic disease, lymphadenopathy. Followed closely by radiation oncology. See note below. Infrarenal abdominal aortic aneurysm (AAA) without rupture ([facility] V24) 08/27/2022 Overview (08/17/2024): PET/CT TUMOR IMAGING SKULL BASE TO MID-THIGH ? 08/26/2022 Moderate calcified and sclerosis of the aortoiliac tree with fusiform infrarenal aneurysm measuring 3.1 cm Hyponatremia 11/12/2021 CLL (chronic lymphocytic gricel kemia) ([facility] V24, [facility] V28) 01/13/2019 Overview (05/21/2024): Dr Cotton Assessment [...] outpatient management. Coronary artery disease invo lving [place] coronary artery of [place] heart without angina pectoris 12/05/2017 Assessment & [...] Encounters Date Type Department Care Team Description 06/02/2025 9:30 AM EDT - 06/02/2025 11:59 PM EDT Hospital Encounter [facility] Radiation Oncology [address] [place] [phone] Discharge Disposition: Home or Self Care 05/26/2025 10:00 AM EDT - 05/26/2025 11:59 PM EDT Hospital Encounter [facility] Radiation Oncology [address] [place] [phone] Angel Huizar MD Squamous cell carcinoma of forehead Discharge Disposition: Home or Self Care 05/26/2025 9:15 AM EDT - 05/26/2025 11:59 PM EDT Hospital Encounter [facility] Radiation Oncology [address] [place] [phone] Recurrent squamous cell carcinoma of skin (Primary Dx) Discharge Disposition: Home or Self Care 05/24/2025 1:00 PM EDT Office Visit Adult [address] [phone] Aminata Moreno MD Primary hypertension (Primary Dx); S/P drug eluting coronary stent placement; CLL (chronic lymphocytic leukemia) (CMS/HCC V24, CMS/HCC V28); History of colostomy reversal; History of revision of total replacement of right hip joint; Non-autoimmune hemolytic anemia (CMS/HCC V24, CMS/HCC V28); Recurrent squamous cell carcinoma of skin; Encounter for immunization 05/17/2025 Telephone [facility] Hematology Oncology [address] [place] [phone] Honey Oliveros MA 05/16/2025 11:00 AM EDT Office Visit [facility] Hematology Oncology [address] [place] [phone] Lamar Cotton MD CLL (chronic lymphocytic leukemia) ([facility] V24, [facility] V28) (Primary Dx); Anemia, unspecified type 03/31/2025 10:00 AM EDT Consult Adult Medicine [address] [phone] Aminata Morneo MD Pre-op examination (Primary Dx); Colostomy in place ([facility] V24, [facility] V28); Other iron deficiency anemia; CLL (chronic lymphocytic leukemia) ([facility] V24, [facility] V28); Primary hypertension; S/P drug eluting coronary stent placement; Recurrent squamous cell carcinoma of skin; History of revision of total replacement of right hip joint 03/31/2025 Telephone [facility] Hematology Oncology [address] [place] [phone] Lamar Cotton MD 03/24/2025 1:24 PM EDT - 03/24/2025 11:59 PM EDT Hospital Encounter [facility] Radiation Oncology [address] [place] [phone] Olesya Marquez MD Squamous cell carcinoma of forehead (Primary Dx) Discharge Disposition: Home or Self Care 03/24/2025 1:01 PM EDT - 03/24/2025 11:59 PM EDT Hospital Encounter [facility] Radiation Oncology [address] [place] [phone] Discharge Disposition: Home or Self Care 03/17/2025 Telephone [facility] Radiation Oncology [address] [place] [phone] Jenniffer Darby MA 03/16/2025 11:00 AM EDT Telemedicine Infectious Disease - [place] [address] [place] [address] Neelima Peoples MD Infection of prosthetic joint, subsequent encounter (Primary Dx) 03/16/2025 Telephone Adult Medicine [facility] [address] [place] [phone] Aminata Moreno MD 03/14/2025 Telephone [facility] Radiation Oncology [address] [place] [phone] Jennifer Brothers RN from Last 3 Months Immunizations Immunization Administration Dates Next Due COVID-19 (Pfizer/Comirnaty) 12yo and older 08/06/2023 Hepatitis A-Hepatitis B Adul t (Twinrix) 18yo and older 03/15/2014,01/14/2014,12/08/2013,10/09 Influenza Quadravalent, 0.5m l (Fluad) 65yo and older 08/06/2023,07/11/2021,05/24/2020 Influenza Quadravalent, 0.5m l (Fluzone High-dose) 65yo and older 06/27/2022 Influenza trivalent, 0.5mL ( Fluad) 65yo and older 05/24/2025,05/21/2018 Influenza trivalent, 0.5mL ( Fluzone High-dose) 65yo [...] subun it RSVpreF, 0.5mL, Preservative Free (Arexvy) 50yo and older 09/10/2023 Td Tetanus diptheria (Tdvax) 7yo and older 07/06/2019,01/04/1999 Tdap Tetanus diptheria acell ular pertussis (Boostrix; Adacel) 7yo and older 11/28/2008 Zoster Live 12/16/2014 Surgical History Surgery Date Site/Laterality Comments OTHER SURGICAL HISTORY Bilateral PROCEDURE: [place] ARTHRP ACETBLR/PROX FEM PROSTC AGRFT/ALGRFT; COMMENT: bilateral CORONARY STENT PLACEMENT 2004 PROCEDURE: STENT, CORONARY, ELIZABET COLONOSCOPY 2008 [facility] PROCEDURE: HISTORICAL COLONOSCOPY; COMMENT: Incomplete OTHER [...] Right PROCEDURE: HISTORY OTHER; COMMENT: [facility]- removal of growth - SCC on [...] HIP PROSTHESIS; Surgeon: Babak Carrasquillo MD; Location: [facility] Service: Orthopedics; [...] hx of CLL (chronic lymphocytic gricel kemia) ([facility] V24, [facility] V28) 08/12/2024 IMPROVING Coronary artery disease invo lving [place] coronary artery of [place] heart without angina pectoris 12/05/2017 DX:Coronary artery disea se involving [place] coronary artery of [place] heart without angina pectoris Essential hypertension 12/05/2017 DX:Essent ial hypertension Pure hypercholesterolemia 12/05/2017 DX:Pur e hypercholesterolemia Osteoarthritis DX:Osteoarthriti s Chronic constipation DX:Chronic constipation GI (gastrointestinal bleed) D/T HEMORROIDS REQUIRED TRANSFUSION 07/2023 Hemorrhoid DX:Hemorrhoid Anemia DX:Anemia;COMMEN T:HX History of transfusion COMMENT:D /T HEMORROIDS 07/2023 Cancer ([facility] V24, [facility] V28) DX:Cancer (HCC);COMMENT:CLL- NO TX Skin cancer 2022 SCC FACE AND NEC K- GIOVANI, CHEMO, RAD [place] Melanoma ([facility] V24, [facility] V28) 05/2022 DX:Melanoma (HCC) Family History Medical [...] drink = 0.6 oz pur e alcohol) Housing Instability Answer Date Recorde d Are you worried that in the next 2 months you may not have stable housing? No 05/23/2025 Food Access & Nutrition Answer Date Rec orded Do you have access to a vari ety of food including fruits and vegetables? Yes 05/23/2025 Access to Healthcare Answer Date Record ed Within the last 3 months, ho w many times did you visit the emergency department for your medical care? 0 05/23/2025 Health Literacy Answer Date Recorded How often do you need to hav e someone help you when you read instructions, pamphlets, or other written material from your doctor or pharmacy? Rarely 05/23/2025 Caregiver: How often do you need to have someone help you when you read instructions, pamphlets, or other written material from your doctor or pharmacy? Not on file 05/23/2025 Financial Risk Answer Date Recorded How hard is it for you to pa y for the very basics like food, housing, medical care, and air conditioning / heating? Not very hard 05/23/2025 Transportation Answer Date Recorded Has the lack of transportati on kept you from meetings, work, or from getting things needed for daily living? No Has the lack of transportati on kept you from medical appointments or from getting medications? No 05/23/2025 Social Isolation Answer Date Recorded How often do you feel lonely or isolated from those around you? Sometimes 05/23/2025 Food Risk Answer Date Recorded Within the past 12 months we worried whether our food would run out before we got money to buy more. Never true 05/23/2025 Within the past 12 months th e food we bought just didn't last and we didn't have money to get more. Never true 05/23/2025 Dependent Care Answer Date Recorded Do you need help finding or paying for care for your loved ones. For example, exceptional children teacher or elderly care for an older adult? No 05/23/2025 Education Answer Date Recorded Do you think completing more education or training, like finishing a GED, going to college, or learning a trade, would be helpful for you? No 05/23/2025 Employment and Income Answer Date Recor ded During the last four weeks, have you been actively looking for work? No 05/23/2025 Living Situation Answer Date Recorded What is your living situation? Unrecognized valu e 05/23/2025 Interpersonal Safety Answer Date Record ed Physical Abuse Unrecognized value 09/14/2024 Verbal Abuse Unrecognized value 09/14/2024 Sex and Gender Information Value Date Recorded Sex Assigned at Male 08/27/2024 9:31 AM EST Legal Sex Male 12:32 PM EST Gender Identity Male 09/14/2024 5:10 AM EST Sexual Orientation Straight 10/20/2024 9: 19 AM EST Obstetrics History Last Filed Vital Signs Vital Sign Reading Time Taken Comments Blood Pressure 103/57 05/24/2025 12:51 PM EDT Pulse 60 05/24/2025 12:51 PM EDT Temperature 36.3 C (97.3 F) 05/24/2025 12:51 PM EDT Respiratory Rate 16 05/24/2025 12:51 PM EDT Oxygen Saturation 100% 05/16/2025 11:03 AM EDT Inhaled Oxygen Concentration - - Weight 85.7 kg (189 lb) 05/24/2025 12:51 PM EDT Height 185 cm (6' 0.84 ) 05/24/2025 12:51 PM EDT Body Mass Index 25.05 05/24/2025 12:51 PM EDT Plan of Treatment Upcoming Encounters Date Type Department Care Team (Late st Contact Info) Description 06/23/2025 11:00 AM EDT Appointment [facility] Radiation Oncology [address] [place] [phone] 06/23/2025 11:15 AM EDT Appointment [facility] Radiation Oncology [address] [place] [phone] Angel Huizar MD [address] [place] [phone] 06/24/2025 10:30 AM EDT Appointment [facility] Radiation Oncology [address] [place] [phone] 06/27/2025 10:30 AM EDT Appointment [facility] Radiation Oncology [address] [place] [phone] 06/28/2025 10:30 AM EDT Appointment [facility] Radiation Oncology [address] [place] [phone] 06/29/2025 10:30 AM EDT Appointment [facility] Radiation Oncology [address] [place] [phone] 06/30/2025 10:30 AM EDT Appointment [facility] Radiation Oncology [address] [place] [phone] 07/01/2025 10:30 AM EDT Appointment [facility] Radiation Oncology [address] [place] [phone] 07/04/2025 10:30 AM EDT Appointment [facility] Radiation Oncology [address] [place] [phone] 07/05/2025 10:30 AM EDT Appointment [facility] Radiation Oncology [address] [place] [phone] 07/06/2025 10:30 AM EDT Appointment [facility] Radiation Oncology [address] [place] [phone] 08/15/2025 11:15 AM EST Office Visit [facility] Hematology Oncology [address] [place] [phone] Lamar Cotton MD [address] [place] [address] 09/14/2025 11:00 AM EST Telemedicine Infectious Disease - [place] [address] [place] [phone] Neelima Peoples MD [address] [place] [address] 10/26/2025 11:00 AM EST Office Visit Adult Medicine - [place] [address] [place] [phone] Henrique Gomes PA [address] [place] [address] Health Maintenance Due Date Last Done Comments Zoster Vaccines (1 of 2) 02/10/2015 12/16/2014 COVID-19 Vaccine ( season) 2025 08/06/2023, 08/06/2023, 06/27/2022, Additional history exists Medicare Annual Wellness Visit 12/13/2025 12/13/2024 Falls Risk Assessment 01/20/2026 01/20/2025, 025 Social Influencers of Health Screening 05/23/2026 05/23/2025 Hypertension/CHF/CAD Annual BMP Blood Test 05/31/2026 05/31/2025, 05/16/2025, 04/12/2025, Additional history exists Cholesterol Screening (Lipid Panel) [...] Adult Patients Completed 09/10/2023 Depression Screening Completed 05/23/2025 Influenza Vaccine Completed 05/24/2025, , 08/06/2023, Additional history exists HIB Vaccines [...] this topic Medical Devices Implanted Type Area Lunchroom Operator Device Identifier Shelf Expiration Date Model / Serial / Lot Sponge Surgifoam Gel 12 X 7mm - [id number] Implanted:Qty : 1 on 09/14/2024 by Babak Carrasquillo MD at [facility] Hemostasis Right: Hip [employer] [id number] 08/13/20261971 / [id number] Screw Bone 6.5x35mm Trilogy - [id number] Implanted:Qty : 1 on 09/14/2024 by Babak Carrasquillo MD at [facility] Internal and External Fixation Right: Hip [employer]ESS [employer] 03/30/2034 [id number] / / [id number] Screw Bone 6.5x40mm Trilogy - [id number] Implanted:Qty : 1 on 09/14/2024 by Babak Carrasquillo MD at [facility] Internal and External Fixation Right: Hip [employer] 10/31/2033 [id number] / / [id number] Screw Bone 6.5x25mm Trilogy - [id number] Implanted:Qty : 1 on 09/14/2024 by Baabk Carrasquillo MD at [facility] Internal and External Fixation Right: Hip ETSS BIOMET 03/23/2034 [id number] / / [id number] Screw Bone 6.5x20mm Trilogy - Sna - [id number] Implanted:Qty : 2 on 09/14/2024 by Babak Carrasquillo MD at [facility] Internal and External Fixation Right: Hip [employer] [id number] 02/25/2034 [id number] / NA / [id number] Screw Bone 6.5x20mm Trilogy - [id number] Implanted:Qty : 1 on 09/14/2024 by Babak Carrasquillo MD at [facility] Internal and External Fixation Right: Hip [employer]ESS [employer]ET 03/02/2034 [id number] / / [id number] Screw Bone 6.5x20mm Trilogy - [id number] Implanted:Qty : 1 on 09/14/2024 by Babak Carrasquillo MD at [facility] Internal and External Fixation Right: Hip [employer] [id number] 12/29/2033 [id number] / / [id number] Screw Bone 6.5x40mm Trilogy - Sna - [id number] Implanted:Qty : 1 on 09/14/2024 by Babak Carrasquillo MD at [facility] Internal and External Fixation Right: Hip [employer] [id number] / NA / [id number] Hip Hd Constrn Frdm -6mm - [id number] Implanted:Qty : 1 on 09/14/2024 by Babak Carrasquillo MD at [facility] Joints Hip Right: Hip [employer] [id number] 06/16/2033 11-829806 / / [id number] Plate Manager Of Photography Troch Lg 210mm Vitallium W 2 2mm Cabl Stry-How [id number] Implanted:Qty : 1 on 06/08/2024 by Babak Carrasquillo MD Right: Hip [employer] [id number] 02/19/2028 6704-3-093 / / [id number] Cable Slv Set D-M Bead 2.0mm Vit Med Stry-Howm 2664-1-406-11 4159 Implanted:Qty : 1 on 06/08/2024 by Babak Carrasquillo MD Right: Hip [employer] [id number] 11/17/2028 6704-0-510 / / [id number] Cable Slv Set D-M Bead 2.0mm Vit Med Stry-Howm 5768-5-643-11 4159 Implanted:Qty : 1 on 06/08/2024 by Babak Carrasquillo MD Right: Hip [employer] [id number] 11/17/2028 6704-0-510 / / [id number] Cable Slv Set D-M Bead 2.0mm Vit Med Stry-Howm 0816-2-496-11 4159 Implanted:Qty : 1 on 06/08/2024 by Babak Carrasquillo MD Right: Hip [employer] [id number] 11/17/2028 6704-0-510 / / [id number] Cement Bone Surg Simplex Radiopq Stry-Howm 6051-6-930-11 4092 Implanted:Qty : 1 on 06/08/2024 by Babak Carrasquillo MD Right: Hip [employer] [id number] 05/08/2026 6191-1-010 / / [id number] Cement Bone Surg Simplex Radiopq Stry-How 7397-2-242-11 4092 Implanted:Qty : 1 on 06/08/2024 by Babak Carrasquillo MD Right: Hip [employer] [id number] 05/08/2026 6191-1-010 / / [id number] Impl Set Bead 2.0mm Vit Brandt Kaminski-How 5520-6-172-11 4128 Implanted:Qty : 1 on 06/08/2024 by Babak Carrasquillo MD Right: Hip [employer] [id number] 01/19/2029 6704-0-520 / / [id number] Impl Set Bead 2.0mm Vit Brandt Kaminski-How 6958-5-974-11 4128 Implanted:Qty : 1 on 06/08/2024 by Babak Carrasquillo MD Right: Hip [employer] [id number] 01/19/2029 6704-0-520 / / [id number] Impl Set Bead 2.0mm Vit Brandt Kaminski-How 4232-0-168-11 4128 Implanted:Qty : 1 on 06/08/2024 by Babak Carrasquillo MD Right: Hip [employer] [id number] 01/09/2029 6704-0-520 / / [id number] Impl Set Bead 2.0mm Vit Brandt Kaminski-How 9989-0-200-11 4128 Implanted:Qty : 1 on 06/08/2024 by Babak Carrasquillo MD Right: Hip [employer] [id number] 01/09/2029 6704-0-520 / / [id number] Impl Set Bead 2.0mm Vit Brandt Kaminski-How 7427-2-976-11 4128 Implanted:Qty : 1 on 06/08/2024 by Babak Carrasquillo MD Right: Hip [employer] [id number] 10/06/2028 6704-0-520 / / [id number] Cable Slv Set D-M Bead 2.0mm Vit Med Stry-How 2100-7-199-11 4159 Implanted:Qty : 1 on 06/08/2024 by Babak Carrasquillo MD Right: Hip [employer] [id number] 11/17/2028 6704-0-510 / / [id number] [place] Constrained Liner Neutral 36mm Size I Implanted:Qty : 1 on 09/14/2024 by Babak Carrasquillo MD at [facility] Right: Hip [employer] 03/20/2027 [id number] / [id number] / [id number] Implant Record G7 [place] Multihole 68mm Implanted:Qty : 1 on 09/14/2024 by Babak Carrasquillo MD at [facility] Right: Hip [employer] 04/04/2026 [id number] / NA / [id number] Implant Record Tatianna Con Sz A Std 50mm Implanted:Qty : 1 on 09/14/2024 by Babak Carrasquillo MD at [facility] Right: Hip [employer] [id number] 09/19/2031 11-622570 / NA / [id number] Implant Record Implanted:Qty : 1 on 09/14/2024 by Babak Carrasquillo MD at [facility] Right: Hip [employer] [id number] 11/13/2033 11-177380 / NA / [id number] Explanted Type Area Lunchroom Operator Device Identifier Shelf Expiration Date Model / Serial / Lot Bone Cement Explanted:Qty : 2 on 09/14/2024 by Babak Carrasquillo MD at [facility] Bone Cement Right: Hip [employer] 09/15/2024 000 / 000 / 000 Procedures Procedure Name Priority Date/Time Associated Diagnosis Comments TYPE AND SCREEN Routine 06/14/2025 11:52 AM EDT CLL (chronic lymphocytic leukemia) (CMS/HCC V24, CMS/[facility] V28) Anemia, unspecified type MANUAL DIFFERENTIAL - S[facility]MEX WAM Routine 05/31/2025 11:03 AM EDT CLL (chronic lymphocytic leukemia) (CMS/HCC V24, CMS/HCC V28) Anemia, unspecified type CBC WITH AUTO DIFFERENTIAL Routine 05/31/2025 11:03 AM EDT CLL (chronic lymphocytic leukemia) (CMS/HCC V24, CMS/HCC V28) Anemia, unspecified type TYPE AND SCREEN Routine 05/31/2025 11:03 AM EDT Iron deficiency anemia due to chronic blood loss Recurrent squamous cell carcinoma of skin COMPREHENSIVE METABOLIC PANEL Routine 05/31/2025 11:03 AM EDT CLL (chronic lymphocytic leukemia) (CMS/HCC V24, CMS/HCC V28) Anemia, unspecified type CBC AND DIFFERENTIAL Routine 05/31/2025 11:03 AM EDT CLL (chronic lymphocytic leukemia) (CMS/HCC V24, CMS/HCC V28) Anemia, unspecified type MANUAL DIFFERENTIAL - [facility] WAM Routine 05/16/2025 12:12 PM EDT CLL (chronic lymphocytic leukemia) (CMS/HCC V24, CMS/HCC V28) Anemia, unspecified type CBC WITH AUTO DIFFERENTIAL Routine 05/16/2025 12:12 PM EDT CLL (chronic lymphocytic leukemia) (CMS/HCC V24, CMS/HCC V28) Anemia, unspecified type IRON AND TIBC Routine 05/16/2025 12:12 PM EDT CLL (chronic lymphocytic leukemia) (CMS/HCC V24, CMS/HCC V28) Anemia, unspecified type FERRITIN Routine 05/16/2025 12:12 PM EDT CLL (chronic lymphocytic leukemia) (CMS/HCC V24, CMS/HCC V28) Anemia, unspecified type VITAMIN B12 AND FOLATE Routine 12:12 PM EDT CLL (chronic lymphocytic leukemia) (CMS/HCC V24, CMS/HCC V28) Anemia, unspecified type TYPE AND SCREEN Routine 05/16/2025 12:12 PM EDT Iron deficiency anemia due to chronic blood loss Recurrent squamous cell carcinoma of skin COMPREHENSIVE METABOLIC PANEL Routine 05/16/2025 12:12 PM EDT CLL (chronic lymphocytic leukemia) (CMS/HCC V24, CMS/HCC V28) Anemia, unspecified type CBC AND DIFFERENTIAL Routine 05/16/2025 12:12 PM EDT CLL (chronic lymphocytic leukemia) (CMS/HCC V24, CMS/HCC V28) Anemia, unspecified type CBC WITH AUTO DIFFERENTIAL Routine 04/12/2025 2:03 [...] (CMS/HCC V24, CMS/HCC V28) Anemia, unspecified type ECG [...] 11:16 AM EDT CLL (chronic lymphocytic leukemia) ([facility]/HCC V24, CMS/HCC V28) Anemia, unspecified type MANUAL [...] 10:53 AM EDT CLL (chronic lymphocytic leukemia) ([facility]/HCC V24, CMS/HCC V28) Anemia, unspecified type HAPTOGLOBIN Routine 03/15/2025 10:53 AM EDT CLL (chronic lymphocytic leukemia) ([facility]/HCC V24, CMS/HCC V28) Anemia, unspecified type CBC AND DIFFERENTIAL Routine 03/15/2025 10:53 AM EDT CLL (chronic lymphocytic leukemia) ([facility]/HCC V24, CMS/HCC V28) Anemia, unspecified type EXTERNAL COLONOSCOPY REPORT 12/20/2024 LIPID PANEL Routine 10/28/2022 from Last 3 Months or Most Recently Relevant to Health Maintenance Results * Type and screen (06/14/2025 11:52 AM EDT) Only the most recent of6 resultswithin the time period is included. ABO Group A 06/14/2025 12:59 PM EDT [facility] Rh Type Positive 06/14/2025 12:59 PM EDT [facility] Antibody Screen Negative 06/14/2025 12:59 PM EDT [facility] Blood Venous blood specimen / Unknown Venipuncture / Unknown 06/14/2025 11:52 AM EDT 06/14/2025 12:12 PM EDT Lamar Cotton MD LAB BLOOD BANK TEST ORDERABL ES Final Result [facility] [address] [place] [address], [place] [phone] * (ABNORMAL) Manual differential (05/31/2025 11:03 AM EDT) Only the most recent of3 resultswithin the time period is included. Neutrophils % 24.0 % LAB HEMETOLOGY METHOD 05/31/2025 1:54 PM EDT [facility] Lymphocytes % 75.0 % LAB HEMETOLOGY METHOD 05/31/2025 1:54 PM EDT [facility] Monocytes % 1.0 % LAB HEMETOLOGY METHOD 05/31/2025 1:54 PM EDT [facility] Eosinophils % 0.0 % LAB HEMETOLOGY METHOD 05/31/2025 1:54 PM EDT [facility] Basophils % 0.0 % LAB HEMETOLOGY METHOD 05/31/2025 1:54 PM EDT [facility] Neutrophils Absolute Manual 2.52 1.50 - 7.00 K/mcL LAB HEMETOLOGY METHOD 05/31/2025 1:54 PM EDT [facility] Lymphocytes Absolute 7.88(H) 1.00 - 5.00 K/mcL LAB HEMETOLOGY METHOD 05/31/2025 1:54 PM EDT [facility] Monocytes Absolute Manual 0.11(L) 0.20 - 1.00 K/mcL LAB HEMETOLOGY METHOD 05/31/2025 1:54 PM EDT [facility] Eosinophils Absolute Manual 0.00 0.00 - 0.50 K/mcL LAB HEMETOLOGY METHOD 05/31/2025 1:54 PM EDT [facility] Basophils Absolute Manual 0.00 0.00 - 0.20 K/mcL LAB HEMETOLOGY METHOD 05/31/2025 1:54 PM EDT [facility] Rbc Morphology Consistent with indices Consistent with indices, Normal for LAB HEMETOLOGY METHOD 05/31/2025 1:54 PM EDT [facility] Platelet Morphology - WAM See Note(A) Normal [facility] 05/31/2025 1:54 PM EDT [facility] Comment:PLT: Normal Blood Venous blood specimen / Unknown Venipuncture / Unknown 05/31/2025 11:03 AM EDT 05/31/2025 11:47 AM EDT us Lamar Cotton MD LAB BLOOD ORDERABLES Final R esult [facility] [address] [place] [address], * (ABNORMAL) CBC auto differential (05/31/2025 11:03 AM EDT) Only the most recent of5 resultswithin the time period is included. WBC 10.5 4.8 - 10.8 K/mcL LAB HEMETOLOGY METHOD 05/31/2025 1:54 PM EDT [facility] RBC 2.90(L) 4.50 - 5.50 M/mcL LAB HEMETOLOGY METHOD 05/31/2025 1:54 PM EDT [facility] Hemoglobin 9.8(L) 13.5 - 17.5 g/dL LAB HEMETOLOGY METHOD 05/31/2025 1:54 PM EDT [facility] Hematocrit 29.6(L) 42.0 - 54.0 % LAB HEMETOLOGY METHOD 05/31/2025 1:54 PM EDT [facility] MCV 101.4(H) 79.0 - 98.0 FL LAB HEMETOLOGY METHOD 05/31/2025 1:54 PM EDT [facility] MCH 33.6(H) 27.0 - 32.0 pcg LAB HEMETOLOGY METHOD 05/31/2025 1:54 PM EDT [facility] MCHC 33.1 32.0 - 37.0 g/dL LAB HEMETOLOGY METHOD 05/31/2025 1:54 PM EDT [facility] RDW 16.4(H) 11.0 - 15.0 % LAB HEMETOLOGY METHOD 05/31/2025 1:54 PM EDT [facility] Platelets 129(L) 130 - 400 K/mcL LAB HEMETOLOGY METHOD 05/31/2025 1:54 PM EDT [facility] MPV 8.7 7.0 - 11.0 FL LAB HEMETOLOGY METHOD 05/31/2025 1:54 PM EDT [facility] NRBC 0.0 <1.0 % LAB HEMETOLOGY METHOD 05/31/2025 1:54 PM EDT [facility] NRBC Absolute 0.00 <0.10 K/mcL LAB HEMETOLOGY METHOD 05/31/2025 1:54 PM EDT [facility] Blood Venous blood specimen / Unknown Venipuncture / Unknown 05/31/2025 11:03 AM EDT 05/31/2025 11:47 AM EDT Lamar Cotton MD LAB BLOOD ORDERABLES Final R esult [facility] [address] [place] [address], * Comprehensive metabolic panel (05/31/2025 11:03 AM EDT) Only the most recent of5 resultswithin the time period is included. Sodium 133 133 - 145 mmol/L LAB CHEMISTRY METHOD 05/31/2025 1:05 PM [facility] Potassium 3.8 3.5 - 5.5 mmol/L LAB CHEMISTRY METHOD 05/31/2025 1:05 PM [facility] Chloride 99 96 - 110 mmol/L LAB CHEMISTRY METHOD 05/31/2025 1:05 PM [facility] CO2 26 21 - 32 mmol/L LAB CHEMISTRY METHOD 05/31/2025 1:05 PM [facility] Anion Gap 8 3 - 11 LAB CHEMISTRY METHOD 05/31/2025 1:05 PM [facility] Glucose 93 70 - 100 mg/dL LAB CHEMISTRY METHOD 05/31/2025 1:05 PM [facility] BUN 17 5 - 25 mg/dL LAB CHEMISTRY METHOD 05/31/2025 1:05 PM [facility] Creatinine 0.84 0.70 - 1.30 mg/dL LAB CHEMISTRY METHOD 05/31/2025 1:05 PM [facility] eGFR 91 >=60 mL/min/1. 73m2 LAB CHEMISTRY METHOD 05/31/2025 1:05 PM [facility] Comment:Calculation based on the Chronic Kidney Disease Epidemiology Collaboration (CKD-EPI) equation refit without adjustment for race. BUN/Creatinine Ratio 20.2 LAB CHEMISTRY METHOD 05/31/2025 1:05 PM [facility] Calcium 8.8 8.5 - 10.5 mg/dL LAB CHEMISTRY METHOD 05/31/2025 1:05 PM [facility] AST (SGOT) 35 10 - 42 unit/L LAB CHEMISTRY METHOD 05/31/2025 1:05 PM [facility] ALT (SGPT) 24 10 - 60 unit/L LAB CHEMISTRY METHOD 05/31/2025 1:05 PM EDT [facility] Alkaline Phosphatase 83 42 - 121 unit/L LAB CHEMISTRY METHOD 05/31/2025 1:05 PM EDT [facility] Total Protein 6.6 6.0 - 8.0 g/dL LAB CHEMISTRY METHOD 05/31/2025 1:05 PM EDT [facility] Albumin 4.1 3.2 - 5.0 g/dL LAB CHEMISTRY METHOD 05/31/2025 1:05 PM EDT [facility] Total Bilirubin 0.6 0.0 - 1.4 mg/dL LAB CHEMISTRY METHOD 05/31/2025 1:05 PM EDT [facility] Blood Venous blood specimen / Unknown Venipuncture / Unknown 05/31/2025 11:03 AM EDT 05/31/2025 11:47 AM EDT us Lamar Cotton MD LAB BLOOD ORDERABLES Final R esult [facility] [address] [place] [address], * (ABNORMAL) Vitamin B12 and folate (05/16/2025 12:12 PM EDT) Vitamin B-12 >2,000(H) 250 - 900 pcg/mL LAB CHEMISTRY METHOD 05/16/2025 6:46 PM EDT [facility] Folate >20.0(H) 2.8 - 17.0 ng/ml LAB CHEMISTRY METHOD 05/16/2025 6:46 PM EDT [facility] Blood Venous blood specimen / Unknown Venipuncture / Unknown 05/16/2025 12:12 PM EDT 05/16/2025 1:32 PM EDT us Lamar Cotton MD LAB BLOOD ORDERABLES Final R esult Performing Organization Address City/[facility]/ZIP Co de Phone Number [facility] [address] [place] [address], [place] [phone] * (ABNORMAL) Iron and TIBC (05/16/2025 12:12 PM EDT) Iron 49(L) 50 - 160 mcg/dL LAB CHEMISTRY METHOD 05/16/2025 4:44 PM EDT [facility] TIBC 231(L) 250 - 450 mcg/dL LAB CHEMISTRY METHOD 05/16/2025 4:44 PM EDT [facility] Iron Saturation 21 20 - 50 % LAB CHEMISTRY METHOD 05/16/2025 4:44 PM EDT [facility] Blood Venous blood specimen / Unknown Venipuncture / Unknown 05/16/2025 12:12 PM EDT 05/16/2025 1:32 PM EDT Lamar Cotton MD LAB BLOOD ORDERABLES Final R esult Performing Organization Address [facility]/ZIP Co de Phone Number [facility] [address] [place] [address], [place] [phone] * (ABNORMAL) Ferritin (05/16/2025 12:12 PM EDT) Ferritin 694(H) 26 - 388 ng/mL LAB CHEMISTRY METHOD 05/16/2025 4:44 PM EDT [facility] Blood Venous blood specimen / Unknown Venipuncture / Unknown 05/16/2025 12:12 PM EDT 05/16/2025 1:32 PM EDT Lamar Cotton MD LAB BLOOD ORDERABLES Final R esult Performing Organization Address City/[facility]/ZIP Co de Phone Number [facility] [address] [place] [address], [place] [phone] * ECG 12 lead (03/31/2025 10:33 AM EDT) us Historical Provider ECG ORDERABLES Final Res ult * (ABNORMAL) RBC morphology review (03/29/2025 11:16 AM EDT) Rbc Morphology Consistent with indices Consistent with indices, Normal for LAB HEMETOLOGY METHOD 03/29/2025 1:18 PM EDT [facility] Platelet Morphology - WAM See Note(A) Normal LAB HEMETOLOGY METHOD 03/29/2025 1:18 PM EDT [facility] Comment:PLT: Normal Blood Venous blood specimen / Unknown Venipuncture / Unknown 03/29/2025 11:16 AM EDT 03/29/2025 12:14 PM EDT Lamar Cotton MD LAB BLOOD ORDERABLES Final R esult Performing Organization Address City/[facility]/ZIP Co de Phone Number [facility] [address] [place] [address], * Haptoglobin (03/15/2025 10:53 AM EDT) Haptoglobin 16 16 - 200 mg/dL LAB CHEMISTRY METHOD 03/15/2025 1:17 PM EDT [facility] Blood Venous blood specimen / Unknown Venipuncture / Unknown 03/15/2025 10:53 AM EDT 03/15/2025 12:12 PM EDT us Lamar Cotton MD LAB BLOOD ORDERABLES Final R esult [facility] [address] [place] [address], [place] [phone] * External Colonoscopy Report (12/20/2024) Anatomical Region Laterality Modality Endoscopy us Provider [facility]~PROCEDURE ORDERABLES Final Result * Lipid panel (10/28/2022) LDL/HDL Ratio 3 <=5 Triglycerides 94 <=150 mg/dL Cholesterol 127 <=200 mg/dL HDL 44 >=40 mg/dL LDL Cholesterol 65 <=100 mg/dL Blood Venous blood specimen / Unknown [facility] Provider LAB BLOOD ORDERABLES Jennifer l Result from Last 3 Months or Most Recently Relevant to Health Maintenance Insurance [facility] Advance Directives * Full Code - Confirmed [...] currently active code status orders. 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
--- OUTSIDE RECORDS SUMMARY | 2025-06-14 13:40 | XMS_ITS ---
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 Thapa in [place], [place] Stenting x 2 in [address] Thapa in [place] Hyperlipidemia 09/13/2015 Primary hypertension 09/13/2015 Current Treatment and Therapy Plans No current plan information found. Past Treatment and Therapy Plans No past plan information found. Lifetime Dose Tracking * Chemical Lifetime Dose Automatic Entry Manual Entr y TotalDLP 859 mGy 859 mGy 0 mGy [id number] 7.5 mSv 7.5 mSv 0 mSv CTDIvol Max 32.2 mGy 32.2 mGy 0 mGy CTDIvol Min 32.2 mGy 32.2 mGy 0 mGy
== END 2025-06-14 11:48 | disposition home or self-care (01) ==
LOC: HO.HGS 11:00
PROVIDERS: PCP Family Medicine; Visit Provider Surgery
DX: Z98.890 Other specified postprocedural states (principal)
CPT/HCPCS: 99024

== ENCOUNTER → 2025-06-14 11:00 | Outpatient (BNVA) | payer MEDICARE, SELFPAY | PROVIDERS: PCP Family Medicine; Visit Provider Surgery | DX: Z48.816 Encounter for surgical aftercare following surgery on the genitourinary system (principal); Z98.890 Other specified postprocedural states | CPT/HCPCS: 99212 ==